=== PATIENT | female | born 1965 | race Caucasian/White ===

== ENCOUNTER 2020-10-06 19:31 | Inpatient (IN) ==
--- NOTE | 2020-10-06 20:33 | DR.SOBA ---
HPI Time Seen Time Seen by Provider: 10/06/20 20:20 Primary Care Physician Primary Care Physician: NONE HPI Comment HPI Comment: Worsening cough, congestion, n/d, fever and body aches since being diagnosed with covid as below; had RegenCov in [place] yesterday and taking zpak, prednisone without relief. Complaints Chief Complaint:: COVID POSITIVE THURSDAY. INCREASING SHORTNESS OF BREATHE AND COUGHING. NOW OXYGEN SATS IN 88. UNABLE TO REST DUE TO COUGHING. NAUSEA, DIARRHEA, FEVER, BODY AND HEADACHE Self Treatment fo Chief Complaint: ZPAK, PREDNISONE, ALBUTEROL, DOESN'T USE. IVERMECTIN, HAD REGEN-COV INFUSION YESTERDAY IN [place]. COVID-19 Coronavirus risk:travel/contact w/high risk person: Yes Has patient experienced Coronavirus symptoms: Yes Coronavirus symptoms experienced: Fever, Coughing and Shortness of Breath Source History Provided: Patient Mode of Arrival Mode of Arrival: Ambulatory Timing Onset of Chief Complaint: 10/03/20 PMH PMH Past Medical History: Yes Past Medical History Comment: SCIATICA Past Surgical History: Yes Surgical History: Cholecystectomy Family History History of Family Medical Conditions: Yes Family Medical History: Diabetes Mellitus and Heart Failure Social History Does patient currently use any type of tobacco product: No Have you used tobacco products in the last 12 months: No Type of Tobacco Use: None Does any household member use tobacco: No Alcohol Use: Occasionally Do you use any recreational Drugs:: No Lives With: Family Lives Where: Home Travel Risk Coronavirus risk:travel/contact w/high risk person: Yes Has patient experienced Coronavirus symptoms: Yes Coronavirus symptoms experienced: Fever, Coughing and Shortness of Breath Infectious screening In the last 2 months have you had wt loss of >10#?: NO Have you had fever, night sweats or hemotysis?: No Have you traveled outside the country in the last 6 months?: No Isolation: Airborn/Negative Pressure ROS Review of Systems Eyes: No Symptoms Reported ENTM: No Symptoms Reported Cardiovascular: No Symptoms Reported Gastrointestinal/Abdominal: No Symptoms Reported Genitourinary: No Symptoms Reported Integumentary: No Symptoms Reported Hematologic/Lymphatic: No Symptoms Reported Endocrine: No Symptoms Reported Psychiatric: No Symptoms Reported PE Vital Signs Vitals: Temperature 98.3 F Pulse Rate [Left] 92 Pulse Rate 82 Respiratory Rate 22 Blood Pressure [Left Arm] 151/81 Blood Pressure 122/75 O2 Sat by Pulse Oximetry 90 General Limitations: Physical Limitation (persistent, dry harsh cough) General Appearance: Other (appears moderately ill) Head Head Exam: Normal Inspection Eyes Eye exam: Normal Appearance ENT ENT Exam: Normal Exam Neck Neck Exam: Normal Inspection Chest Chest Inspection: Normal Inspection Respiratory Respiratory Exam: Normal Lung Sounds Bilat Respiratory Exam: Bilateral: Clear to Auscultation Cardiovascular Cardiovascular Exam: Regular Rate and Normal Rhythm Abdominal Exam Abdominal Exam: Normal Inspection, Normal Bowel Sounds and Soft Extremities Extremities Exam: Normal Inspection Back Back Exam: Normal Inspection Neurologic Neurological Exam: Alert and Oriented X3 Psychiatric Psychiatric Exam: Normal Affect and Normal Mood Skin Skin Exam: Warm, Dry, Intact and Normal Color MDM Differential Diagnosis Differential Diagnosis: Bronchitis, COPD, Pneumonia, Respiratory Failure, Respiratory Insufficiency and URI COURSE Treatment Treatment: test results discussed with pt; she accepts admission ROR Labs Reviewed Laboratory Results Reviewed?: Yes Result Diagrams: 10/06/20 21:20 10/06/20 21:20 Laboratory: WBC 7.1 X10^3/uL (3.6-10.0) 10/06/20 21:20 RBC 4.49 X10^6/uL (3.5-5.4) 10/06/20 21:20 Hgb 14.7 g/dL (12.0-16.0) 10/06/20 21:20 Hct 42.2 % (36.0-47.0) 10/06/20 21:20 MCV 93.9 fL (80.0-100.0) 10/06/20 21:20 MCH 32.7 pg (27.0-34.0) 10/06/20 21:20 MCHC 34.8 g/dL (33.0-35.0) 10/06/20 21:20 RDW 13.7 % (11.6-16.5) 10/06/20 21:20 Plt Count 164 X10^3/uL (150.0-450.0) 10/06/20 21:20 MPV 8.8 fL (7.4-11.0) 10/06/20 21:20 Neut % (Auto) 69.9 % (42.0-75.0) 10/06/20 21:20 Lymph % (Auto) 24.4 % (21.0-51.0) 08/28/21 21:20 Becker % (Auto) 5.3 % (0.0-13.0) 10/06/20 21:20 Eos % (Auto) 0.0 % (0.9-2.9) L 10/06/20 21:20 Baso % (Auto) 0.4 % (0.2-1.0) 10/06/20 21:20 Neut # (Auto) 5.0 x10^3/uL (2.2-4.8) H 10/06/20 21:20 Lymph # (Auto) 1.7 X10^3/uL (1.3-2.9) 10/06/20 21:20 Becker # (Auto) 0.4 x10^3/uL (0.3-0.8) 10/06/20 21:20 Eos # (Auto) 0.0 x10^3/uL (0.0-0.2) 10/06/20 21:20 Baso # (Auto) 0.0 X10^3/uL (0.0-0.1) 10/06/20 21:20 Absolute Nucleated RBC 0.1 /100WBC 10/06/20 21:20 D-Dimer 0.48 ug/ml (0.0-0.57) 10/06/20 21:20 Sample Site Lrad 10/06/20 21:10 ABG pH 7.480 (7.35-7.45) H 10/06/20 21:10 ABG pCO2 31.0 mmHg (35.0-45.0) L 10/06/20 21:10 ABG pO2 71.0 mmHg (80.0-100.0) L 10/06/20 21:10 ABG HCO3 23.1 mmol/L (22-26) 10/06/20 21:10 ABG O2 Saturation 95.0 % (90-100) 10/06/20 21:10 ABG Base Excess 0.3 mmol/L (-2.0-2.0) 10/06/20 21:10 Loyd Test Pos 10/06/20 21:10 A-a Gradient 175.0 mmHg 10/06/20 21:10 FiO2 40.0 10/06/20 21:10 Blood Gas Comments Coby abg well=mtf 10/06/20 21:10 Sodium 135 mmol/L (136-145) L 10/06/20 21:20 Corrected Sodium TNP 10/06/20 21:20 Potassium 3.4 mmol/L (3.5-5.1) L 10/06/20 21:20 Chloride 97 mmol/L (98-107) L 10/06/20 21:20 Carbon Dioxide 28.5 mmol/L (21-32) 10/06/20 21:20 BUN 11 mg/dL (7-18) 10/06/20 21:20 Creatinine 1.11 mg/dL (0.55-1.02) H 10/06/20 21:20 Est GFR (MDRD) Af Amer > 60 (>60) 10/06/20 21:20 Est GFR (MDRD) Non-Af 54 (>60) L 10/06/20 21:20 Glucose 104 mg/dL (65-99) H 10/06/20 21:20 Calcium 8.9 mg/dL (8.5-10.1) 10/06/20 21:20 Corrected Calcium TNP 10/06/20 21:20 Ferritin 829 ng/mL (8-252) H 10/06/20 21:20 Total Bilirubin 0.90 mg/dL (0.2-1.0) 10/06/20 21:20 AST 78 Units/L (15-37) H 10/06/20 21:20 ALT 129 Units/L (12-78) H 10/06/20 21:20 Alkaline Phosphatase 158 Units/L (46-116) H 10/06/20 21:20 C-Reactive Protein 73.50 mg/L (0-3.0) H 10/06/20 21:20 B-Natriuretic Peptide 9.6 pg/mL (0-79) 10/06/20 21:20 Total Protein 8.8 g/dL (6.4-8.2) H 10/06/20 21:20 Albumin 3.5 g/dL (3.4-5.0) 10/06/20 21:20 Globulin 5.3 g/dL (2.5-4.5) H 10/06/20 21:20 Albumin/Globulin Ratio 0.7 Ratio (1.1-2.1) L 10/06/20 21:20 XRAY XRAY Interpreted by: Self X-ray Results: cxr: bilateral pneumonia Opioid Opioid Risk Tool Age (Roberto box if 16-45): No History of Preadolescent Sexual Abuse: No Total: 0 Total Score Risk Category: Low Risk Copyright: Jacques THAKUR predicting aberrant behaviors Diagnosis Discharge Problem: COVID-19, Acute dehydration, Insufficiency, respiratory, acute, Bilateral interstitial pneumonia, Other headache syndrome Instructions Forms: Patient Portal Social Distancing
[2020-10-06 21:11] LABS: ABG BASE EXCESS 0.3 mmol/L (-2.0-2.0); ABG HCO3 23.1 mmol/L (22-26)
[2020-10-06 21:12] LABS: ABG ALLEN TEST POS
[2020-10-06] MEDS ORDERED: TUSSIONEX PENNKINETIC SUSP PO ONE (21:32)
[2020-10-06] MEDS ORDERED: TUSSIONEX PENNKINETIC SUSP ONE (21:36)
[2020-10-06 21:52] LABS: BASOPHILS % (AUTO) 0.4 % (0.2-1.0); HEMATOCRIT 42.2 % (36.0-47.0); HEMOGLOBIN 14.7 g/dL (12.0-16.0); LYMPHOCYTES # (AUTO) 1.7 X10^3/uL (1.3-2.9); LYMPHOCYTES % (AUTO) 24.4 % (21.0-51.0); MEAN CORPUSCULAR HEMOGLOBIN 32.7 pg (27.0-34.0); MEAN CORPUSCULAR HGB CONC 34.8 g/dL (33.0-35.0); MEAN CORPUSCULAR VOLUME 93.9 fL (80.0-100.0); MEAN PLATELET VOLUME 8.8 fL (7.4-11.0); MONOCYTES # (AUTO) 0.4 x10^3/uL (0.3-0.8); MONOCYTES % (AUTO) 5.3 % (0.0-13.0); NEUTROPHILS % (AUTO) 69.9 % (42.0-75.0); PLATELET COUNT 164 X10^3/uL (150.0-450.0); RED BLOOD COUNT 4.49 X10^6/uL (3.5-5.4); RED CELL DISTRIBUTION WIDTH 13.7 % (11.6-16.5); WHITE BLOOD COUNT 7.1 X10^3/uL (3.6-10.0)
[2020-10-06 22:06] LABS: ALANINE AMINOTRANSFERASE 129 Units/L (12-78); ALBUMIN 3.5 g/dL (3.4-5.0); ALKALINE PHOSPHATASE 158 Units/L (46-116); ASPARTATE AMINO TRANSFERASE 78 Units/L (15-37); BLOOD UREA NITROGEN 11 mg/dL (7-18); CALCIUM 8.9 mg/dL (8.5-10.1); CARBON DIOXIDE 28.5 mmol/L (21-32); CHLORIDE 97 mmol/L (98-107); CREATININE 1.11 mg/dL (0.55-1.02); SODIUM 135 mmol/L (136-145); TOTAL PROTEIN 8.8 g/dL (6.4-8.2); eGFR NON BLACK RACES 54 (>60)
[2020-10-06] MEDS ORDERED: NS 1000 ML 1,000 ML IV ONE (22:29)
[2020-10-06] MEDS ORDERED: NS 1000 ML 1,000 ML ONE (23:25)
[2020-10-07] MEDS ORDERED: NORCO 5/325 MG TAB ONE ×2 (00:03→20:22)
[2020-10-07] MEDS: NORCO 5/325 MG TAB PO PRN ×3 (00:06→20:38)
--- NOTE | 2020-10-07 00:36 | RAD ---
EXAM: CHEST X-RAYHISTORY: COVID-19 positive. Shortness of breath. Low O2 saturation.TECHNIQUE: AP chest x-ray dated October 06, 2020 at 8:43 PM.COMPARISON: None available.FINDINGS:There is mild prominence of the bronchopulmonary markings, especially in the middle and lower lung sandoval, in keeping with bronchitis and interstitial pneumonia (e.g. Covid pneumonia) in the appropriate clinical setting; DDX includes mild noncardiogenic pulmonary congestion in the appropriate clinical setting. Clinical correlation is advised.No focal lung consolidation/mass, pleural effusion, or pneumothorax is seen.The heart size and mediastinum are within normal limits. The visualized bony structures are within normal limits.IMPRESSION:1. Mild prominence of the bronchopulmonary markings, especially in the middle and lower lung sandoval, in keeping with bronchitis and interstitial pneumonia (e.g. Covid pneumonia) in the appropriate clinical setting; DDX includes mild noncardiogenic pulmonary congestion in the appropriate clinical setting.2. Recommend clinical correlation and appropriate follow-up x-ray to ensure interval clearance.3. Consider follow-up evaluation with noncontrast chest CT to confirm Covid pneumonia as clinically warranted.Electronically signed by: Harman Veloz (Oct 07, 2020 00:34:54)
[2020-10-07] MEDS ORDERED: NS 1000 ML 1,000 ML ONE ×3 (00:53→23:04)
[2020-10-07] MEDS ORDERED: SOLU-Medrol 125 MG VIAL IVP ONE (01:01)
[2020-10-07] MEDS ORDERED: LEVAQUIN PREMIX IV 500 MG 500 MG/100 ML BAG IV ONE ×2 (01:01→01:04)
[2020-10-07] MEDS ORDERED: SOLU-Medrol 125 MG VIAL ONE ×2 (01:04→07:33)
[2020-10-07] MEDS: NS 1000 ML 1,000 ML IV SCH ×3 (01:15→18:56)
[2020-10-07 06:13] LABS: BASOPHILS % (AUTO) 0.2 % (0.2-1.0); HEMATOCRIT 39.3 % (36.0-47.0); HEMOGLOBIN 13.6 g/dL (12.0-16.0); LYMPHOCYTES # (AUTO) 0.9 X10^3/uL (1.3-2.9); LYMPHOCYTES % (AUTO) 9.5 % (21.0-51.0); MEAN CORPUSCULAR HEMOGLOBIN 32.7 pg (27.0-34.0); MEAN CORPUSCULAR HGB CONC 34.6 g/dL (33.0-35.0); MEAN CORPUSCULAR VOLUME 94.6 fL (80.0-100.0); MEAN PLATELET VOLUME 9.2 fL (7.4-11.0); MONOCYTES # (AUTO) 0.4 x10^3/uL (0.3-0.8); MONOCYTES % (AUTO) 3.9 % (0.0-13.0); NEUTROPHILS # (AUTO) 8.3 x10^3/uL (2.2-4.8); NEUTROPHILS % (AUTO) 86.4 % (42.0-75.0); PLATELET COUNT 153 X10^3/uL (150.0-450.0); RED BLOOD COUNT 4.15 X10^6/uL (3.5-5.4); RED CELL DISTRIBUTION WIDTH 13.1 % (11.6-16.5); WHITE BLOOD COUNT 9.7 X10^3/uL (3.6-10.0)
[2020-10-07 06:28] LABS: ALANINE AMINOTRANSFERASE 106 Units/L (12-78); ALBUMIN 2.9 g/dL (3.4-5.0); ALKALINE PHOSPHATASE 133 Units/L (46-116); ASPARTATE AMINO TRANSFERASE 69 Units/L (15-37); BLOOD UREA NITROGEN 10 mg/dL (7-18); CALCIUM 8.3 mg/dL (8.5-10.1); CARBON DIOXIDE 23.2 mmol/L (21-32); CHLORIDE 100 mmol/L (98-107); COR CA(FOR HYPOALB) 9.2 mg/dL (8.5-10.1); COR NA(FOR HYPERGLY) 135 mmol/L (136-145); CREATININE 0.86 mg/dL (0.55-1.02); SODIUM 134 mmol/L (136-145); TOTAL PROTEIN 7.8 g/dL (6.4-8.2); eGFR NON BLACK RACES > 60 (>60)
[2020-10-07] MEDS ORDERED: TUSSIONEX PENNKINETIC SUSP ONE (07:33)
[2020-10-07] MEDS: TUSSIONEX PENNKINETIC SUSP PO PRN (07:34)
[2020-10-07] MEDS ORDERED: SOLU-Medrol 125 MG VIAL IVP SCH (09:00)
[2020-10-07] MEDS: BROVANA IN SCH ×2 (09:09→20:41)
[2020-10-07] MEDS: PULMICORT NEB TX 0.5 MG NEB SCH ×2 (09:09→20:41)
[2020-10-07] MEDS ORDERED: REMDESIVIR 200 MG in NS 250 ML IV 250 ML IV ONE (10:58)
[2020-10-07] MEDS ORDERED: PHARMACY CONSULT - IVERMECTIN XX SCH (11:00)
[2020-10-07] MEDS: SOLU-Medrol 40 MG VIAL IVP SCH ×3 (11:35→21:28)
[2020-10-07] MEDS ORDERED: PROTONIX TAB 40 MG PO ONE ×2 (11:38→19:29)
[2020-10-07] MEDS ORDERED: FLUVOXAMINE MALEATE ONE ×2 (11:39→19:29)
[2020-10-07] MEDS ORDERED: PEPCID TAB 40 MG ONE ×2 (11:39→19:29)
[2020-10-07] MEDS ORDERED: REMDESIVIR IV ONE (11:39)
[2020-10-07] MEDS ORDERED: IVERMECTIN ONE (11:39)
[2020-10-07] MEDS ORDERED: NS 250 ML IV 250 ML IV ONE (11:39)
[2020-10-07] MEDS: PEPCID TAB 40 MG PO SCH ×2 (11:47→20:41)
[2020-10-07] MEDS: PROTONIX TAB 40 MG PO SCH ×2 (11:47→20:41)
[2020-10-07] MEDS: IVERMECTIN PO SCH (11:48)
[2020-10-07] MEDS: FLUVOXAMINE MALEATE PO SCH ×2 (11:48→20:38)
[2020-10-07 12:27] LABS: CKMB % 0.6 % (<4); CREATINE KINASE 180 Units/L (26-192); CREATINE KINASE MB < 1.0 ng/mL (0-4.0); TROPONIN I < 0.02 ng/mL (0-1.5)
[2020-10-07] MEDS ORDERED: ACCUNEB 1.25 MG NEBULE NEB SCH (13:00)
--- NOTE | 2020-10-07 13:41 | CT ---
HISTORYCOVID, HYPOXIASTUDYCTA [id number] axial images of the chest were obtained from the thoracic inlet to the upper abdomen after the administration of IV contrast. 3D reconstructions utilizing axi al MIPS imaging was performed and reviewed. Dose reduction techniques including Automated Exposure C ontrol (AEC) and adjustment of mA and kV were utilized.FINDINGSSatisfactory opacification of pulmonar y arteries without visible pulmonary artery filling defect. Thoracic aorta appears grossly intact. Ayah ngs show widespread patchy and ground-glass opacity compatible with COVID-19. Consolidative opacity i n the left greater than right base may reflect atelectasis or superimposed bacterial infection. No vi sible lymphadenopathy, pleural or pericardial effusion, or pneumothorax. Limited views upper abdomen show evidence of hepatic steatosis, cholecystectomy. Contrast in the renal collecting systems. No acu te osseous finding.IMPRESSIONNo visible pulmonary embolism. Pulmonary findings typical of COVID. Diff icult to exclude superimposed pneumonia.Electronically signed by: Hiro Stone (Oct 07, 2020 13:39:3 4)
[2020-10-07] MEDS ORDERED: PERIACTIN TAB 4 MG ONE ×2 (14:27→19:30)
[2020-10-07] MEDS ORDERED: SOLU-Medrol 40 MG VIAL ONE ×2 (14:27→19:30)
[2020-10-07] MEDS ORDERED: TESSALON PERLES PO ONE ×2 (14:27→19:29)
[2020-10-07] MEDS ORDERED: NS 50 ML IV 50 ML IV ONE ×2 (14:28→19:31)
[2020-10-07] MEDS: PERIACTIN TAB 4 MG PO SCH ×2 (14:54→21:28)
[2020-10-07] MEDS: ASCORBIC ACID INJ MULTI-DOSE VIAL 1,500 MG in NS 50 ML IV 50 ML IV SCH ×2 (14:54→21:28)
[2020-10-07] MEDS: TESSALON PERLES PO SCH ×2 (14:54→21:27)
[2020-10-07] MEDS ORDERED: LIPITOR TAB 80 MG ONE (19:29)
[2020-10-07] MEDS ORDERED: THIAMINE HCL INJ ONE (19:29)
[2020-10-07] MEDS ORDERED: LOVENOX INJ 100 MG SYR SC ONE (19:29)
[2020-10-07] MEDS ORDERED: ASCORBIC ACID INJ MULTI-DOSE VIAL IV ONE (19:31)
[2020-10-07] MEDS: LIPITOR TAB 80 MG PO SCH (20:39)
[2020-10-07] MEDS: SINGULAIR TAB 10 MG PO SCH (20:40)
[2020-10-07] MEDS: MELATONIN PO SCH (20:40)
[2020-10-07] MEDS: SNACK - Diabetic Appropriate PO SCH (20:41)
[2020-10-07] MEDS ORDERED: LOVENOX INJ 100 MG SYR SC SCH (21:00)
[2020-10-07] MEDS: THIAMINE HCL INJ IVP SCH (21:27)
--- NOTE | 2020-10-07 22:14 | DR.H&P ---
H&P - History & Physical for Day of: H&P Date: 10/06/20 - Chief Complaint Chief Complaint: NON-PRODUCTIVE COUGH, SHORTNESS OF BREATH, HEADACHE, FEVER, NAUSEA AND VOMITING, AND GENERALIZED BODY ACHES - History of Present Illness History of Present Illness: IS A 55 YEAR OLD WHITE FEMALE. SHE PRESENTED TO THE ER WITH COMPLAINTS OF A NON-PRODUCTIVE COUGH, SHORTNESS OF BREATH, HEADACHE, FEVER, NAUSEA AND VOMITING, AND GENERALIZED BODY ACHES. PATIENT REPORTS TESTING POSITIVE FOR COVID-19 4 DAYS AGO. SYMPTOMS STARTED ABOUT A WEEK AGO. SHE REPORTS THAT HER OXYGEN SATURATIONS AT HOME WERE IN THE 80s. SHE HAS TAKEN A ZPAK, PREDNISONE, IVERMECTIN AT HOME WITHOUT IMPROVEMENT IN SYMPTOMS. SHE ALSO HAD THE REGEN-COV INFUSION ONE DAY PRIOR IN [place]. HER PMH INCLUDES: SCIATICA AND CHOLECYSTECTOMY. AUSCULTATION OF BILATERAL LUNG BACH REVEALED SCATTERED WHEEZING. ON ARRIVAL TO THE ER, VITALS WERE 98.3-82-28-90%-122/75. ON EXERTION, HER SATURATIONS DROP TO THE LOWER 80s. SHE WAS PLACED ON OXYGEN VIA NASAL CANNULA AT 3LPM. LABS WERE OBTAINED. ABNORMAL LAB VALUES INCLUDED THE FOLLOWING: SODIUM 135, POTASSIUM 3.4, CHLORIDE 97, CREATININE 1.11, GLUCOSE 104, FERRITIN 829, AST 78, ALT 129, ALK PHOS 158, CRP 73.50, TOTAL PROTEIN 8.8, GLOBULIN 5.3. COVID-19 POSITIVE. AN ABG WAS OBTAINED AND REVEALED: PH 7.480, PC02 31, P02 71, HC03 23.1, 02 SAT 95, A-A GRADIENT 175, FI02 40. BLOOD CULTURES WERE SET UP. CHEST XRAY WAS OBTAINED AND REVEALED: 1. Mild prominence of the bronchopulmonary markings, especially in the middle and lower lung bach, in keeping with bronchitis and interstitial pneumonia (e.g. Covid pneumonia) in the appropriate clinical setting; DDX includes mild noncardiogenic pulmonary congestion in the appropriate clinical setting. CHEST CTA OBTAINED AND REVEALED: No visible pulmonary embolism. Pulmonary findings typical of COVID. Difficult to exclude superimposed pneumonia. EKG REVEALED: SINUS RHYTHM WITH HR 71. IN THE ER, SHE WAS GIVEN A NORMAL SALINE BOLUS, TUSSIONEX 5ML PO X 1, LEVAQUIN 500MG IV X 1, SOLU-MEDROL 125MG IV X 1. SHE WAS ADMITTED TO THE HOSPITAL FOR FURTHER EVALUATION AND TREATMENT OF PNEUMONIA DUE TO COVID-19, RESPIRATORY FAILURE, AND HYPOXIA. SHE WAS STARTED ON NS AT 80 ML/HR, LEVAQUIN 500MG IV DAILY, REMDESIVIR 100MG IV DAILY, ASCORBIC ACID 1500MG IV Q6H, ALBUTEROL NEBS QID, PULMICORT NEBS BID, BROVANA INHALER BID, SOLU-MEDROL 80MG IV8H, FLUVOXAMINE 50MG PO BID, CYPROHEPTADINE 8MG PO TID, ZOFRAN 4MG IV Q8H PRN, LOVENOX 85MG SC Q12H, LIPITOR 80MG PO HS, TESSALON PERLES 200MG PO TID, CETIRIZINE 10MG PO DAILY, IVERMECTIN, PEPCID 40MG PO BID, ROBITUSSIN DM 10ML PO QID PRN, HUMULIN R SLIDING SCALE, SINGULAIR 10MG PO HS, PROTONIX 40MG PO BID, THIAMINE 200MG IV BID, AND ZINC SULFATE 220MG PO BID. OTHERWISE, WE PLAN TO FOLLOW UP WITH AM LABS AND CHEST XRAY AND CONTINUE TO MONITOR. WE WILL ALSO OBTAIN AN ECHO. TIME SPENT ON CLINICAL ASSESSMENT, REVIEWING LABS AND IMAGING, DECISION MAKING, AND DOCUMENTATION GREATER THAN 75 MINUTES. - Past Medical History Additional Medical History: sciatica - Past Surgical History Surgical History: Cholecystectomy - Family History Family Medical History: Diabetes Mellitus, Cancer - Social History Does patient currently use any type of tobacco product: No Have you used tobacco products in the last 12 months: No Type of Tobacco Use: None Does any household member use tobacco: No Alcohol Use: Occasionally Drug Use: None - Medications Home Medications: ibuprofen Adverse Reaction (Verified 10/06/20 20:57) abd pain CONTINUE taking the following medications gabapentin 800 mg PO TID PRN 10/07/20 [History] hydroxyzine pamoate 50 mg PO TID PRN 10/07/20 [History] - Review of Systems Constitutional: Fever, Chills, Weakness Eyes: No Symptoms Reported ENT: No Symptoms Reported Respiratory: See HPI, Cough, Shortness of Breath, SOB with Excertion, Wheezing Cardiovascular: No Symptoms Reported Gastrointestinal: Nausea, Vomiting Genitourinary: No Symptoms Reported Musculoskeletal: No Symptoms Reported Skin: No Symptoms Reported Neurological: Weakness - Physical Exam Vital Signs: Temperature 97.8 F Pulse Rate [Apical] 63 Pulse Rate [Left] 81 Pulse Rate 77 Respiratory Rate 24 Blood Pressure [Right Arm] 96/55 Blood Pressure [Left Arm] 117/66 Blood Pressure 122/75 O2 Sat by Pulse Oximetry 97 Oriented: Normal Eyes: Normal Ear: Normal Nose: Normal Throat: Normal Respiratory: Diminished Throughout, Wheezes Throughout Cardiovascular: Normal : Normal Auscultation: Bowel Sounds: Normal Palpation: Normal Tenderness: Normal Skin: Normal Musculoskeletal: Normal Psychiatric: Normal Mood Description: Calm Affect: Normal Speech Pattern: Clear - Assessment/Plan (1) Pneumonia due to COVID-19 virus Status: Acute Plan: ADMIT, SUPPLEMENTAL OXYGEN, NS AT 80 ML/HR, LEVAQUIN 500MG IV DAILY, REMDESIVIR 100MG IV DAILY, ASCORBIC ACID 1500MG IV Q6H, ALBUTEROL NEBS QID, PULMICORT NEBS BID, BROVANA INHALER BID, SOLU-MEDROL 80MG IV8H, FLUVOXAMINE 50MG PO BID, CYPROHEPTADINE 8MG PO TID, ZOFRAN 4MG IV Q8H PRN, LOVENOX 85MG SC Q12H, LIPITOR 80MG PO HS, TESSALON PERLES 200MG PO TID, CETIRIZINE 10MG PO DAILY, IVERMECTIN, PEPCID 40MG PO BID, ROBITUSSIN DM 10ML PO QID PRN, HUMULIN R SLIDING SCALE, SINGULAIR 10MG PO HS, PROTONIX 40MG PO BID, THIAMINE 200MG IV BID, AND Z INC SULFATE 220MG PO BID (2) Hypoxia Status: Acute - Allergies Allergies/Adverse Reactions: Allergies Allergy/AdvReac Type Severity Reaction Status Date / Time ibuprofen AdvReac abd pain Verified 10/06/20 20:57
[2020-10-08] MEDS ORDERED: LEVAQUIN PREMIX IV 500 MG 500 MG/100 ML BAG IV ONE (01:08)
[2020-10-08] MEDS: LEVAQUIN PREMIX IV 500 MG 500 MG/100 ML BAG IV SCH (01:13)
[2020-10-08] MEDS ORDERED: ASCORBIC ACID INJ MULTI-DOSE VIAL IV ONE ×3 (02:58→13:46)
[2020-10-08] MEDS ORDERED: NS 50 ML IV 50 ML IV ONE (02:58)
[2020-10-08] MEDS: NS 1000 ML 1,000 ML IV SCH ×2 (03:12→14:23)
[2020-10-08] MEDS: ASCORBIC ACID INJ MULTI-DOSE VIAL 1,500 MG in NS 50 ML IV 50 ML IV SCH ×5 (03:13→21:43)
[2020-10-08] MEDS ORDERED: PERIACTIN TAB 4 MG ONE (05:01)
[2020-10-08] MEDS ORDERED: SOLU-Medrol 40 MG VIAL ONE ×2 (05:01→13:45)
[2020-10-08] MEDS ORDERED: TESSALON PERLES PO ONE ×2 (05:01→13:45)
[2020-10-08 05:29] LABS: ABG BASE EXCESS 1.9 mmol/L (-2.0-2.0); ABG HCO3 26.6 mmol/L (22-26)
[2020-10-08 05:30] LABS: ABG ALLEN TEST POS
[2020-10-08] MEDS: PERIACTIN TAB 4 MG PO SCH ×3 (05:32→21:44)
[2020-10-08] MEDS: SOLU-Medrol 40 MG VIAL IVP SCH (05:32)
[2020-10-08] MEDS: TESSALON PERLES PO SCH ×3 (05:32→21:45)
[2020-10-08 07:42] LABS: BASOPHILS % (AUTO) 0.1 % (0.2-1.0); HEMATOCRIT 39.1 % (36.0-47.0); HEMOGLOBIN 13.3 g/dL (12.0-16.0); LYMPHOCYTES # (AUTO) 1.3 X10^3/uL (1.3-2.9); LYMPHOCYTES % (AUTO) 11.1 % (21.0-51.0); MEAN CORPUSCULAR HEMOGLOBIN 32.2 pg (27.0-34.0); MEAN CORPUSCULAR VOLUME 94.5 fL (80.0-100.0); MEAN PLATELET VOLUME 9.2 fL (7.4-11.0); MONOCYTES # (AUTO) 0.5 x10^3/uL (0.3-0.8); MONOCYTES % (AUTO) 4.7 % (0.0-13.0); NEUTROPHILS # (AUTO) 9.6 x10^3/uL (2.2-4.8); NEUTROPHILS % (AUTO) 84.1 % (42.0-75.0); PLATELET COUNT 195 X10^3/uL (150.0-450.0); RED BLOOD COUNT 4.14 X10^6/uL (3.5-5.4); RED CELL DISTRIBUTION WIDTH 13.5 % (11.6-16.5); WHITE BLOOD COUNT 11.4 X10^3/uL (3.6-10.0)
[2020-10-08 08:02] LABS: ALANINE AMINOTRANSFERASE 76 Units/L (12-78); ALBUMIN 2.4 g/dL (3.4-5.0); ALKALINE PHOSPHATASE 107 Units/L (46-116); ASPARTATE AMINO TRANSFERASE 47 Units/L (15-37); BLOOD UREA NITROGEN 11 mg/dL (7-18); CALCIUM 8.2 mg/dL (8.5-10.1); CARBON DIOXIDE 24.9 mmol/L (21-32); CHLORIDE 107 mmol/L (98-107); COR CA(FOR HYPOALB) 9.5 mg/dL (8.5-10.1); COR NA(FOR HYPERGLY) 141 mmol/L (136-145); CREATININE 0.79 mg/dL (0.55-1.02); SODIUM 140 mmol/L (136-145); eGFR NON BLACK RACES > 60 (>60)
--- NOTE | 2020-10-08 08:14 | RAD ---
HISTORYSOB, COVID+STUDYCHEST, 1 [id number] lungs are better inflated than on the prior study. Patchy bilateral areas of opacity are compatible with bronchopneumonia. Probably not changed significantly when accounting for the improved aeration.No pleural effusion or pneumothorax.The heart size is magnified.Bones are unremarkable.EKG leads are noted.IMPRESSION1. Improved aeration2. Unchanged bronchopneumoniaElectronically signed by: Jason Barber (Oct 08, 2020 08:13:42)
[2020-10-08] MEDS: PULMICORT NEB TX 0.5 MG NEB SCH ×2 (08:29→20:40)
[2020-10-08] MEDS: BROVANA IN SCH ×2 (08:29→20:40)
[2020-10-08] MEDS ORDERED: PROTONIX TAB 40 MG PO ONE (10:36)
[2020-10-08] MEDS ORDERED: ZyrTEC TAB 10 MG ONE (10:36)
[2020-10-08] MEDS ORDERED: REMDESIVIR IV ONE (10:37)
[2020-10-08] MEDS ORDERED: LOVENOX INJ 80 MG SYR SC ONE (10:37)
[2020-10-08] MEDS ORDERED: THIAMINE HCL INJ ONE (10:37)
[2020-10-08] MEDS ORDERED: ZINC SULFATE ONE (10:37)
[2020-10-08] MEDS ORDERED: VITAMIN D3 125 mcg (5,000 UNITS) ONE (10:37)
[2020-10-08] MEDS ORDERED: PEPCID TAB 20 MG ONE (10:37)
[2020-10-08] MEDS ORDERED: FLUVOXAMINE MALEATE ONE (10:37)
[2020-10-08] MEDS ORDERED: NS 100 ML IV 100 ML ONE (10:37)
[2020-10-08] MEDS ORDERED: NS 250 ML IV 250 ML IV ONE (10:38)
[2020-10-08] MEDS: FLUVOXAMINE MALEATE PO SCH ×2 (10:43→21:45)
[2020-10-08] MEDS: LOVENOX INJ 80 MG SYR SC SCH ×2 (10:44→21:30)
[2020-10-08] MEDS: PROTONIX TAB 40 MG PO SCH ×2 (10:45→21:46)
[2020-10-08] MEDS: PEPCID TAB 40 MG PO SCH ×2 (10:45→21:44)
[2020-10-08] MEDS: REMDESIVIR 100 MG in NS 250 ML IV 250 ML IV SCH (10:45)
[2020-10-08] MEDS: THIAMINE HCL INJ IVP SCH ×2 (10:46→21:46)
[2020-10-08] MEDS: VITAMIN D3 125 mcg (5,000 UNITS) PO SCH (10:46)
[2020-10-08] MEDS: ZINC SULFATE PO SCH (10:46)
[2020-10-08] MEDS: ZyrTEC TAB 10 MG PO SCH (10:47)
[2020-10-08] MEDS ORDERED: ZOFRAN INJ 4 MG VIAL ONE (11:44)
[2020-10-08] MEDS: ACCUNEB 1.25 MG NEBULE NEB SCH ×3 (11:47→20:40)
[2020-10-08] MEDS: ZOFRAN INJ 4 MG VIAL IVP PRN (12:19)
[2020-10-08] MEDS ORDERED: NS 1000 ML 1,000 ML ONE (13:46)
[2020-10-08] MEDS: SOLU-Medrol 125 MG VIAL IVP SCH ×2 (15:17→21:45)
[2020-10-08] MEDS: SNACK - Diabetic Appropriate PO SCH (20:00)
--- NOTE | 2020-10-08 21:30 | PCM.PROG ---
Progress Note - Progress Note for Day of Date of Exam: 10/08/20 - Subjective Subjective: MS. RICHARDS WAS ADMITTED FOR TREATMENT OF COVID PNEUMONIA AND HYPOXIA. TODAY, SHE IS ALERT AND ORIENTED, SITTING UP IN THE BED ON MORNING ROUNDS. SHE IS CURRENTLY UTILIZING OXYGEN VIA NON-REBREATHER AT 100%. HE CONTINUES WITH COMPLAINTS OF SHORTNESS OF BREATH AND WEAKNESS TODAY. SHORTNESS OF BREATH AND COUGH SLIGHTLY INCREASED. HIS SATURATIONS HAVE BEEN 86-92% THIS MORNING AND THROUGHOUT THE NIGHT. ON EXAMINATION, HEART IS REGULAR IN RATE AND RHYTHM. BILATERAL LUNGS ARE NOTED WITH WHEEZING THROUGHOUT. ABDOMEN IS ROUND, SOFT, AND NON-TENDER WITH NORMAL BOWEL SOUNDS NOTED IN ALL QUADRANTS. HIS VITALS THIS MORNING ARE: 98.4-87-24-89%-134/63. LABS WERE OBTAINED. ABNORMAL LAB VALUES INCLUDE THE FOLLOWING: WBC 11.4, GLUCOSE 154, CALCIUM 8.2, FERRITIN 752, AST 47, CRP 58.30, BNP 121, ALBUMIN 2.4, GLOBULIN 4.6. BLOOD CULTURES ARE PENDING. ABG REVEALED: PH 7.420, PC02 41, P02 78, HC03 26.6, 02 SAT 96, A-A GRADIENT 584, FI02 100. A CHEST XRAY WAS OBTAINED AND REVEALED: 1. Improved aeration 2. Unchanged bronchopneumonia. SHE IS CURRENTLY RECEIVING NS AT 80 ML/HR, LEVAQUIN 500MG IV DAILY, REMDESIVIR 100MG IV DAILY, ASCORBIC ACID 1500MG IV Q6H, ALBUTEROL NEBS QID, PULMICORT NEBS BID, BROVANA INHALER BID, SOLU-MEDROL 80MG IV8H, FLUVOXAMINE 50MG PO BID, CYPROHEPTADINE 8MG PO TID, ZOFRAN 4MG IV Q8H PRN, LOVENOX 85MG SC Q12H, LIPITOR 80MG PO HS, TESSALON PERLES 200MG PO TID, CETIRIZINE 10MG PO DAILY, IVERMECTIN, PEPCID 40MG PO BID, ROBITUSSIN DM 10ML PO QID PRN, HUMULIN R SLIDING SCALE, SINGULAIR 10MG PO HS, PROTONIX 40MG PO BID, THIAMINE 200MG IV BID, AND ZINC SULFATE 220MG PO BID. WE WILL CONTINUE WITH CURRENT PLAN OF CARE TODAY AND ATTEMPT TO WEAN DOWN OXYGEN SHE TOLERATES IT. OTHERWISE, WE WILL FOLLOW UP WITH AM LABS, CHEST XRAY, ABG, AND CONTINUE TO MONITOR. TIME SPENT ON CLINICAL ASSESSMENT, REVIEWING LABS AND IMAGING, DECISION MAKING, AND DOCUMENTATION GREATER THAN 45 MINUTES. - Past Medical Family Social History Past Med/Fam/Surg Hx: No changes since H&P Allergies: Allergies ibuprofen Adverse Reaction (Verified 10/06/20 20:57) abd pain - Review of Systems ROS: No change since H&P - Vital Signs and I&O's Vital Signs: Temperature 98.1 F Pulse Rate [Apical] 87 Pulse Rate [Left] 81 Pulse Rate 87 Respiratory Rate 36 Blood Pressure [Right Arm] 134/63 Blood Pressure [Left Arm] 117/66 Blood Pressure 117/75 O2 Sat by Pulse Oximetry 92 Intake and Output: Intake & Output 10/06/20 10/07/20 10/08/20 10/09/20 11:59 11:59 11:59 11:59 Intake Total 425 / 425 2141 / 2141 958 / 958 Balance 425 / 425 2141 / 2141 958 / 958 - Physical Exam Oriented: Normal Eyes: Normal Ear: Normal Nose: Normal Throat: Normal Respiratory: Generalized, Diminished, Wheezes Cardiovascular: Normal : Normal Auscultation: Bowel Sounds: Normal Palpation: Normal Tenderness: Normal Skin: Normal Musculoskeletal: Normal Psychiatric: Normal Mood Description: Calm Affect: Normal Speech Pattern: Clear, Appropriate - Laboratory and Diagnostics Result Diagrams: 10/08/20 06:52 10/08/20 06:52 Labs: Laboratory WBC 11.4 X10^3/uL (3.6-10.0) H 10/08/20 06:52 RBC 4.14 X10^6/uL (3.5-5.4) 10/08/20 06:52 Hgb 13.3 g/dL (12.0-16.0) 10/08/20 06:52 Hct 39.1 % (36.0-47.0) 10/08/20 06:52 MCV 94.5 fL (80.0-100.0) 10/08/20 06:52 MCH 32.2 pg (27.0-34.0) 10/08/20 06:52 MCHC 34.0 g/dL (33.0-35.0) 10/08/20 06:52 RDW 13.5 % (11.6-16.5) 10/08/20 06:52 Plt Count 195 X10^3/uL (150.0-450.0) 10/08/20 06:52 MPV 9.2 fL (7.4-11.0) 10/08/20 06:52 Neut % (Auto) 84.1 % (42.0-75.0) H 10/08/20 06:52 Lymph % (Auto) 11.1 % (21.0-51.0) L 10/08/20 06:52 [place] % (Auto) 4.7 % (0.0-13.0) 10/08/20 06:52 Eos % (Auto) 0.0 % (0.9-2.9) L 10/08/20 06:52 Baso % (Auto) 0.1 % (0.2-1.0) L 10/08/20 06:52 Neut # (Auto) 9.6 x10^3/uL (2.2-4.8) H 10/08/20 06:52 Lymph # (Auto) 1.3 X10^3/uL (1.3-2.9) 10/08/20 06:52 [place] # (Auto) 0.5 x10^3/uL (0.3-0.8) 10/08/20 06:52 Eos # (Auto) 0.0 x10^3/uL (0.0-0.2) 10/08/20 06:52 Baso # (Auto) 0.0 X10^3/uL (0.0-0.1) 10/08/20 06:52 Absolute Nucleated RBC 0.2 /100WBC 10/08/20 06:52 D-Dimer 0.42 ug/ml (0.0-0.57) 10/08/20 06:52 Sample Site Lr 10/08/20 05:00 ABG pH 7.420 (7.35-7.45) 10/08/20 05:00 ABG pCO2 41.0 mmHg (35.0-45.0) 10/08/20 05:00 ABG pO2 78.0 mmHg (80.0-100.0) L 10/08/20 05:00 ABG HCO3 26.6 mmol/L (22-26) H 10/08/20 05:00 ABG O2 Saturation 96.0 % (90-100) 10/08/20 05:00 ABG Base Excess 1.9 mmol/L (-2.0-2.0) 10/08/20 05:00 Loyd Test Pos 10/08/20 05:00 A-a Gradient 584.0 mmHg 10/08/20 05:00 FiO2 100.0 10/08/20 05:00 Blood Gas Comments Coby well sw 10/08/20 05:00 Sodium 140 mmol/L (136-145) 10/08/20 06:52 Corrected Sodium 141 mmol/L (136-145) 10/08/20 06:52 Potassium 3.7 mmol/L (3.5-5.1) 10/08/20 06:52 Chloride 107 mmol/L (98-107) 10/08/20 06:52 Carbon Dioxide 24.9 mmol/L (21-32) 10/08/20 06:52 BUN 11 mg/dL (7-18) 10/08/20 06:52 Creatinine 0.79 mg/dL (0.55-1.02) 10/08/20 06:52 Est GFR (MDRD) Af Amer > 60 (>60) 10/08/20 06:52 Est GFR (MDRD) Non-Af > 60 (>60) 10/08/20 06:52 Glucose 154 mg/dL (65-99) H 10/08/20 06:52 Calcium 8.2 mg/dL (8.5-10.1) L 10/08/20 06:52 Corrected Calcium 9.5 mg/dL (8.5-10.1) 10/08/20 06:52 Ferritin 752 ng/mL (8-252) H 10/08/20 06:52 Total Bilirubin 0.70 mg/dL (0.2-1.0) 10/08/20 06:52 AST 47 Units/L (15-37) H 10/08/20 06:52 ALT 76 Units/L (12-78) 10/08/20 06:52 Alkaline Phosphatase 107 Units/L (46-116) 10/08/20 06:52 Creatine Kinase 180 Units/L (26-192) 10/07/20 11:49 CK-MB (CK-2) < 1.0 ng/mL (0-4.0) 10/07/20 11:49 CK/CKMB % Calc 0.6 % (<4) 10/07/20 11:49 Troponin I < 0.02 ng/mL (0-1.5) 10/07/20 11:49 C-Reactive Protein 58.30 mg/L (0-3.0) H 10/08/20 06:52 B-Natriuretic Peptide 121 pg/mL (0-79) H 10/08/20 06:52 Total Protein 7.0 g/dL (6.4-8.2) 10/08/20 06:52 Albumin 2.4 g/dL (3.4-5.0) L 10/08/20 06:52 Globulin 4.6 g/dL (2.5-4.5) H 10/08/20 06:52 Albumin/Globulin Ratio 0.5 Ratio (1.1-2.1) L 10/08/20 06:52 - Plan (1) Pneumonia due to COVID-19 virus Status: Acute Plan: SUPPLEMENTAL OXYGEN, NS AT 80 ML/HR, LEVAQUIN 500MG IV DAILY, REMDESIVIR 100MG IV DAILY, ASCORBIC ACID 1500MG IV Q6H, ALBUTEROL NEBS QID, PULMICORT NEBS BID, BROVANA INHALER BID, SOLU-MEDROL 80MG IV8H, FLUVOXAMINE 50MG PO BID, CYPROHEPTADINE 8MG PO TID, ZOFRAN 4MG IV Q8H PRN, LOVENOX 85MG SC Q12H, LIPITOR 80MG PO HS, TESSALON PERLES 200MG PO TID, CETIRIZINE 10MG PO DAILY, IVERMECTIN, PEPCID 40MG PO BID, ROBITUSSIN DM 10ML PO QID PRN, HUMULIN R SLIDING SCALE, SINGULAIR 10MG PO HS, PROTONIX 40MG PO BID, THIAMINE 200MG IV BID, AND ZINC SULFATE 220MG PO BID (2) Hypoxia Status: Acute
[2020-10-08] MEDS: NORCO 5/325 MG TAB PO PRN (21:45)
[2020-10-08] MEDS: MELATONIN PO SCH (21:46)
[2020-10-08] MEDS: LIPITOR TAB 80 MG PO SCH (21:46)
[2020-10-08] MEDS: SINGULAIR TAB 10 MG PO SCH (21:46)
[2020-10-09] MEDS: LEVAQUIN PREMIX IV 500 MG 500 MG/100 ML BAG IV SCH (00:50)
[2020-10-09] MEDS: ASCORBIC ACID INJ MULTI-DOSE VIAL 1,500 MG in NS 50 ML IV 50 ML IV SCH ×4 (02:33→20:38)
[2020-10-09 03:48] LABS: ABG ALLEN TEST POS; ABG BASE EXCESS 2.8 mmol/L (-2.0-2.0); ABG HCO3 27.2 mmol/L (22-26)
[2020-10-09] MEDS: TESSALON PERLES PO SCH ×3 (05:09→21:15)
[2020-10-09] MEDS: PERIACTIN TAB 4 MG PO SCH ×3 (05:09→21:15)
[2020-10-09] MEDS: SOLU-Medrol 125 MG VIAL IVP SCH ×3 (05:09→21:15)
[2020-10-09] MEDS: NS 1000 ML 1,000 ML IV SCH ×3 (05:09→21:15)
[2020-10-09] MEDS: ACCUNEB 1.25 MG NEBULE NEB SCH ×2 (05:36→20:19)
[2020-10-09 07:09] LABS: BASOPHILS % (AUTO) 0 % (0.2-1.0); HEMATOCRIT 38.4 % (36.0-47.0); HEMOGLOBIN 12.9 g/dL (12.0-16.0); LYMPHOCYTES # (AUTO) 0.7 X10^3/uL (1.3-2.9); LYMPHOCYTES % (AUTO) 6.9 % (21.0-51.0); MEAN CORPUSCULAR HEMOGLOBIN 32.2 pg (27.0-34.0); MEAN CORPUSCULAR HGB CONC 33.6 g/dL (33.0-35.0); MEAN CORPUSCULAR VOLUME 96.1 fL (80.0-100.0); MONOCYTES # (AUTO) 0.4 x10^3/uL (0.3-0.8); MONOCYTES % (AUTO) 4.4 % (0.0-13.0); NEUTROPHILS # (AUTO) 8.7 x10^3/uL (2.2-4.8); NEUTROPHILS % (AUTO) 88.7 % (42.0-75.0); PLATELET COUNT 226 X10^3/uL (150.0-450.0); RED CELL DISTRIBUTION WIDTH 13.6 % (11.6-16.5); WHITE BLOOD COUNT 9.8 X10^3/uL (3.6-10.0)
[2020-10-09 07:28] LABS: ALANINE AMINOTRANSFERASE 64 Units/L (12-78); ALBUMIN 2.3 g/dL (3.4-5.0); ALKALINE PHOSPHATASE 94 Units/L (46-116); ASPARTATE AMINO TRANSFERASE 41 Units/L (15-37); BLOOD UREA NITROGEN 15 mg/dL (7-18); CALCIUM 8.1 mg/dL (8.5-10.1); CARBON DIOXIDE 28.4 mmol/L (21-32); CHLORIDE 108 mmol/L (98-107); COR CA(FOR HYPOALB) 9.5 mg/dL (8.5-10.1); COR NA(FOR HYPERGLY) 145 mmol/L (136-145); CREATININE 0.95 mg/dL (0.55-1.02); SODIUM 143 mmol/L (136-145); TOTAL PROTEIN 6.6 g/dL (6.4-8.2); eGFR NON BLACK RACES > 60 (>60)
--- NOTE | 2020-10-09 08:07 | RAD ---
HISTORYSOBSTUDYCHEST, 1 [id number]/2021FINDINGSDiffuse bilateral opacity in the lungs is basilar predominant. Findings could be pulmonary edema or pneumonia. The findings have also progressed since yesterday.No pleural effusion or pneumothorax.Heart size is normal.Bones are unremarkable.IMPRESSION1. Progressed pulmonary edema or pneumoniaElectronically signed by: Jason Barber (Oct 09, 2020 08:05:51)
[2020-10-09] MEDS ORDERED: PEPCID TAB 20 MG ONE (09:23)
[2020-10-09] MEDS: BROVANA IN SCH ×2 (09:30→20:19)
[2020-10-09] MEDS: PULMICORT NEB TX 0.5 MG NEB SCH ×2 (09:30→20:19)
[2020-10-09] MEDS: NORCO 5/325 MG TAB PO PRN (09:35)
[2020-10-09] MEDS: FLUVOXAMINE MALEATE PO SCH ×2 (09:35→20:38)
[2020-10-09] MEDS: PROTONIX TAB 40 MG PO SCH ×2 (09:37→20:39)
[2020-10-09] MEDS: ZINC SULFATE PO SCH (09:37)
[2020-10-09] MEDS: ZyrTEC TAB 10 MG PO SCH (09:37)
[2020-10-09] MEDS: THIAMINE HCL INJ IVP SCH ×2 (09:37→20:40)
[2020-10-09] MEDS: VITAMIN D3 125 mcg (5,000 UNITS) PO SCH (09:38)
[2020-10-09] MEDS: LOVENOX INJ 80 MG SYR SC SCH ×2 (09:45→20:39)
[2020-10-09] MEDS: REMDESIVIR 100 MG in NS 250 ML IV 250 ML IV SCH (10:00)
--- NOTE | 2020-10-09 11:05 | PCM.PROG ---
Progress Note - Progress Note for Day of Date of Exam: 10/09/20 - Subjective Subjective: MS. RICHARDS WAS ADMITTED FOR TREATMENT OF COVID PNEUMONIA AND HYPOXIA. TODAY, SHE IS ALERT AND ORIENTED, SITTING UP IN THE BED ON MORNING ROUNDS. SHE IS CURRENTLY UTILIZING OXYGEN VIA NON-REBREATHER AT 100%. SHE CONTINUES WITH COMPLAINTS OF SHORTNESS OF BREATH AND WEAKNESS TODAY. SHE DOES ADMIT TO SLIGHT IMPROVEMENT IN SYMPTOMS. HER SATURATIONS HAVE BEEN 90-95% THIS MORNING AND THROUGHOUT THE NIGHT. ON EXAMINATION, HEART IS REGULAR IN RATE AND RHYTHM. BILATERAL LUNGS ARE NOTED WITH WHEEZING THROUGHOUT. ABDOMEN IS ROUND, SOFT, AND NON-TENDER WITH NORMAL BOWEL SOUNDS NOTED IN ALL QUADRANTS. HIS VITALS THIS MORNING ARE: 97.8-76-34-90%-113/62. LABS WERE OBTAINED. ABNORMAL LAB VALUES INCLUDE THE FOLLOWING: POTASSIUM 3.4, CHLORIDE 108, GLUCOSE 167, CALCIUM 8.1, FERRITIN 669, AST 41, CRP 25.20, BNP 107, ALBUMIN 2.3. BLOOD CULTURES ARE PENDING. ABG REVEALED: PH 7.440, PC02 40, P02 62.0, HC03 27.2, 02 SAT 92, A-A GRADIENT 601, FI02 100. A CHEST XRAY WAS OBTAINED AND REVEALED: 1. Progressed pulmonary edema or pneumonia. SHE IS CURRENTLY RECEIVING NS AT 80 ML/HR, LEVAQUIN 500MG IV DAILY, REMDESIVIR 100MG IV DAILY, ASCORBIC ACID 1500MG IV Q6H, ALBUTEROL NEBS QID, PULMICORT NEBS BID, BROVANA INHALER BID, SOLU-MEDROL 80MG IV8H, FLUVOXAMINE 50MG PO BID, CYPROHEPTADINE 8MG PO TID, ZOFRAN 4MG IV Q8H PRN, LOVENOX 85MG SC Q12H, LIPITOR 80MG PO HS, TESSALON PERLES 200MG PO TID, CETIRIZINE 10MG PO DAILY, IVERMECTIN, PEPCID 40MG PO BID, ROBITUSSIN DM 10ML PO QID PRN, HUMULIN R SLIDING SCALE, SINGULAIR 10MG PO HS, PROTONIX 40MG PO BID, THIAMINE 200MG IV BID, AND ZINC SULFATE 220MG PO BID. WE WILL CONTINUE WITH CURRENT PLAN OF CARE TODAY AND ATTEMPT TO WEAN DOWN OXYGEN SHE TOLERATES IT. OTHERWISE, WE WILL FOLLOW UP WITH AM LABS, CHEST XRAY, ABG, AND CONTINUE TO MONITOR. TIME SPENT ON CLINICAL ASSESSMENT, REVIEWING LABS AND IMAGING, DECISION MAKING, AND DOCUMENTATION GREATER THAN 45 MINUTES. - Past Medical Family Social History Past Med/Fam/Surg Hx: No changes since H&P Allergies: Allergies ibuprofen Adverse Reaction (Verified 10/06/20 20:57) abd pain - Review of Systems ROS: No change since H&P - Vital Signs and I&O's Vital Signs: Temperature 97.8 F Pulse Rate [Apical] 76 Pulse Rate [Left] 81 Pulse Rate 66 Respiratory Rate 18 Blood Pressure [Right Arm] 117/65 Blood Pressure [Left Arm] 113/62 Blood Pressure 117/75 O2 Sat by Pulse Oximetry 90 Intake and Output: Intake & Output 10/06/20 10/07/20 10/08/20 10/09/20 11:59 11:59 11:59 11:59 Intake Total 425 / 425 214 / 2140 Balance 425 / 425 2140 / 2140 - Physical Exam Oriented: Normal Eyes: Normal Ear: Normal Nose: Normal Throat: Normal Respiratory: Generalized, Diminished, Wheezes Cardiovascular: Normal : Normal Auscultation: Bowel Sounds: Normal Tenderness: Normal Skin: Normal Musculoskeletal: Normal Psychiatric: Normal Mood Description: Calm Affect: Normal Speech Pattern: Clear, Appropriate - Laboratory and Diagnostics Result Diagrams: 10/09/20 05:23 10/09/20 05:23 Labs: Laboratory WBC 9.8 X10^3/uL (3.6-10.0) 10/09/20 05:23 RBC 4.00 X10^6/uL (3.5-5.4) 10/09/20 05:23 Hgb 12.9 g/dL (12.0-16.0) 10/09/20 05:23 Hct 38.4 % (36.0-47.0) 10/09/20 05:23 MCV 96.1 fL (80.0-100.0) 10/09/20 05:23 MCH 32.2 pg (27.0-34.0) 10/09/20 05:23 MCHC 33.6 g/dL (33.0-35.0) 10/09/20 05:23 RDW 13.6 % (11.6-16.5) 10/09/20 05:23 Plt Count 226 X10^3/uL (150.0-450.0) 10/09/20 05:23 MPV 9.0 fL (7.4-11.0) 10/09/20 05:23 Neut % (Auto) 88.7 % (42.0-75.0) H 10/09/20 05:23 Lymph % (Auto) 6.9 % (21.0-51.0) L 10/09/20 05:23 [place] % (Auto) 4.4 % (0.0-13.0) 10/09/20 05:23 Eos % (Auto) 0.0 % (0.9-2.9) L 10/09/20 05:23 Baso % (Auto) 0 % (0.2-1.0) L 10/09/20 05:23 Neut # (Auto) 8.7 x10^3/uL (2.2-4.8) H 10/09/20 05:23 Lymph # (Auto) 0.7 X10^3/uL (1.3-2.9) L 10/09/20 05:23 [place] # (Auto) 0.4 x10^3/uL (0.3-0.8) 10/09/20 05:23 Eos # (Auto) 0.0 x10^3/uL (0.0-0.2) 10/09/20 05:23 Baso # (Auto) 0.0 X10^3/uL (0.0-0.1) 10/09/20 05:23 Absolute Nucleated RBC 0.0 /100WBC 10/09/20 05:23 D-Dimer 0.30 ug/ml (0.0-0.57) 10/09/20 05:23 Sample Site Lr 10/09/20 03:43 ABG pH 7.440 (7.35-7.45) 10/09/20 03:43 ABG pCO2 40.0 mmHg (35.0-45.0) 10/09/20 03:43 ABG pO2 62.0 mmHg (80.0-100.0) L 10/09/20 03:43 ABG HCO3 27.2 mmol/L (22-26) H 10/09/20 03:43 ABG O2 Saturation 92.0 % (90-100) 10/09/20 03:43 ABG Base Excess 2.8 mmol/L (-2.0-2.0) H 10/09/20 03:43 Loyd Test Pos 10/09/20 03:43 A-a Gradient 601.0 mmHg 10/09/20 03:43 FiO2 100.0 10/09/20 03:43 Blood Gas Comments Coby well ae 10/09/20 03:43 Sodium 143 mmol/L (136-145) 10/09/20 05:23 Corrected Sodium 145 mmol/L (136-145) 10/09/20 05:23 Potassium 3.4 mmol/L (3.5-5.1) L 10/09/20 05:23 Chloride 108 mmol/L (98-107) H 10/09/20 05:23 Carbon Dioxide 28.4 mmol/L (21-32) 10/09/20 05:23 BUN 15 mg/dL (7-18) 10/09/20 05:23 Creatinine 0.95 mg/dL (0.55-1.02) 10/09/20 05:23 Est GFR (MDRD) Af Amer > 60 (>60) 10/09/20 05:23 Est GFR (MDRD) Non-Af > 60 (>60) 10/09/20 05:23 Glucose 167 mg/dL (65-99) H 10/09/20 05:23 Calcium 8.1 mg/dL (8.5-10.1) L 10/09/20 05:23 Corrected Calcium 9.5 mg/dL (8.5-10.1) 10/09/20 05:23 Magnesium 2.4 mg/dL (1.7-2.9) 10/09/20 05:10 Ferritin 669 ng/mL (8-252) H 10/09/20 05:23 Total Bilirubin 0.70 mg/dL (0.2-1.0) 10/09/20 05:23 AST 41 Units/L (15-37) H 10/09/20 05:23 ALT 64 Units/L (12-78) 10/09/20 05:23 Alkaline Phosphatase 94 Units/L (46-116) 10/09/20 05:23 Creatine Kinase 180 Units/L (26-192) 10/07/20 11:49 CK-MB (CK-2) < 1.0 ng/mL (0-4.0) 10/07/20 11:49 CK/CKMB % Calc 0.6 % (<4) 10/07/20 11:49 Troponin I < 0.02 ng/mL (0-1.5) 10/07/20 11:49 C-Reactive Protein 25.20 mg/L (0-3.0) H 10/09/20 05:23 B-Natriuretic Peptide 107 pg/mL (0-79) H 10/09/20 05:23 Total Protein 6.6 g/dL (6.4-8.2) 10/09/20 05:23 Albumin 2.3 g/dL (3.4-5.0) L 10/09/20 05:23 Globulin 4.3 g/dL (2.5-4.5) 10/09/20 05:23 Albumin/Globulin Ratio 0.5 Ratio (1.1-2.1) L 10/09/20 05:23 - Plan (1) Pneumonia due to COVID-19 virus Status: Acute Plan: SUPPLEMENTAL OXYGEN, NS AT 80 ML/HR, LEVAQUIN 500MG IV DAILY, REMDESIVIR 100MG IV DAILY, ASCORBIC ACID 1500MG IV Q6H, ALBUTEROL NEBS QID, PULMICORT NEBS BID, BROVANA INHALER BID, SOLU-MEDROL 80MG IV8H, FLUVOXAMINE 50MG PO BID, CYPROHEPTADINE 8MG PO TID, ZOFRAN 4MG IV Q8H PRN, LOVENOX 85MG SC Q12H, LIPITOR 80MG PO HS, TESSALON PERLES 200MG PO TID, CETIRIZINE 10MG PO DAILY, IVERMECTIN, PEPCID 40MG PO BID, ROBITUSSIN DM 10ML PO QID PRN, HUMULIN R SLIDING SCALE, SINGULAIR 10MG PO HS, PROTONIX 40MG PO BID, THIAMINE 200MG IV BID, AND ZINC SULFATE 220MG PO BID (2) Hypoxia Status: Acute
[2020-10-09] MEDS: PEPCID TAB 40 MG PO SCH ×2 (13:34→20:39)
[2020-10-09] MEDS: SNACK - Diabetic Appropriate PO SCH (20:38)
[2020-10-09] MEDS: MELATONIN PO SCH (20:39)
[2020-10-09] MEDS: LIPITOR TAB 80 MG PO SCH (20:39)
[2020-10-09] MEDS: SINGULAIR TAB 10 MG PO SCH (20:40)
[2020-10-09] MEDS: ZOFRAN INJ 4 MG VIAL IVP PRN (21:15)
[2020-10-10] MEDS: LEVAQUIN PREMIX IV 500 MG 500 MG/100 ML BAG IV SCH (01:37)
[2020-10-10] MEDS: ASCORBIC ACID INJ MULTI-DOSE VIAL 1,500 MG in NS 50 ML IV 50 ML IV SCH ×4 (02:39→21:24)
[2020-10-10 04:36] LABS: ABG BASE EXCESS 2.8 mmol/L (-2.0-2.0); ABG HCO3 27.2 mmol/L (22-26)
[2020-10-10] MEDS: NS 1000 ML 1,000 ML IV SCH ×2 (06:23→19:02)
[2020-10-10] MEDS: PERIACTIN TAB 4 MG PO SCH ×3 (06:23→21:25)
[2020-10-10] MEDS: TESSALON PERLES PO SCH ×3 (06:23→21:27)
[2020-10-10] MEDS: SOLU-Medrol 125 MG VIAL IVP SCH ×3 (06:23→21:27)
[2020-10-10 06:25] LABS: BASOPHILS % (AUTO) 0.1 % (0.2-1.0); HEMATOCRIT 37.7 % (36.0-47.0); LYMPHOCYTES # (AUTO) 0.8 X10^3/uL (1.3-2.9); LYMPHOCYTES % (AUTO) 6.9 % (21.0-51.0); MEAN CORPUSCULAR HEMOGLOBIN 32.7 pg (27.0-34.0); MEAN CORPUSCULAR HGB CONC 34.4 g/dL (33.0-35.0); MEAN CORPUSCULAR VOLUME 94.9 fL (80.0-100.0); MEAN PLATELET VOLUME 8.8 fL (7.4-11.0); MONOCYTES # (AUTO) 0.6 x10^3/uL (0.3-0.8); MONOCYTES % (AUTO) 5.5 % (0.0-13.0); NEUTROPHILS # (AUTO) 9.6 x10^3/uL (2.2-4.8); NEUTROPHILS % (AUTO) 87.5 % (42.0-75.0); PLATELET COUNT 251 X10^3/uL (150.0-450.0); RED BLOOD COUNT 3.97 X10^6/uL (3.5-5.4); RED CELL DISTRIBUTION WIDTH 13.7 % (11.6-16.5)
[2020-10-10 07:00] LABS: ALANINE AMINOTRANSFERASE 66 Units/L (12-78); ALBUMIN 2.3 g/dL (3.4-5.0); ALKALINE PHOSPHATASE 90 Units/L (46-116); ASPARTATE AMINO TRANSFERASE 48 Units/L (15-37); BLOOD UREA NITROGEN 16 mg/dL (7-18); CALCIUM 8.1 mg/dL (8.5-10.1); CARBON DIOXIDE 27.5 mmol/L (21-32); CHLORIDE 109 mmol/L (98-107); COR CA(FOR HYPOALB) 9.5 mg/dL (8.5-10.1); COR NA(FOR HYPERGLY) 145 mmol/L (136-145); CREATININE 0.94 mg/dL (0.55-1.02); SODIUM 144 mmol/L (136-145); TOTAL PROTEIN 6.4 g/dL (6.4-8.2); eGFR NON BLACK RACES > 60 (>60)
[2020-10-10] MEDS: ACCUNEB 1.25 MG NEBULE NEB SCH ×3 (07:00→21:18)
[2020-10-10] MEDS ORDERED: MAGNESIUM SULFATE 1 GRAM/100 mL PREMIX 1 GM/100 ML BAG IV PRN (07:55)
[2020-10-10] MEDS ORDERED: POTASSIUM CHL 60 MEQ/NS 0.45% 500 ML IV PRN (07:55)
[2020-10-10] MEDS ORDERED: POTASSIUM CHL 40 MEQ/NS 0.45% 500 ML IV PRN (07:55)
[2020-10-10] MEDS ORDERED: KLOR-CON PO PRN (07:55)
[2020-10-10] MEDS: NORCO 5/325 MG TAB PO PRN ×2 (07:56→21:26)
--- NOTE | 2020-10-10 07:58 | RAD ---
HISTORYSOBSTUDYPortable AP chestCOMPARISONAugust 2020FINDINGSThere is no change in heart size or contour. Persistent and slightly increased diffuse bilateral confluent airspace disease. No developing pleural fluid or pneumothorax identified.IMPRESSIONSlight increase in bilateral pneumonia/pulmonary edema since 1 day earlier.Electronically signed by: ROSA HSU (Oct 10, 2020 07:56:38)
[2020-10-10 08:51] LABS: ABG ALLEN TEST POS
[2020-10-10] MEDS: PULMICORT NEB TX 0.5 MG NEB SCH ×2 (09:05→21:18)
[2020-10-10] MEDS: BROVANA IN SCH ×2 (09:05→21:18)
[2020-10-10] MEDS: THIAMINE HCL INJ IVP SCH ×2 (09:44→21:28)
[2020-10-10] MEDS: ZINC SULFATE PO SCH (09:44)
[2020-10-10] MEDS: REMDESIVIR 100 MG in NS 250 ML IV 250 ML IV SCH (09:44)
[2020-10-10] MEDS: PEPCID TAB 40 MG PO SCH ×2 (09:44→21:25)
[2020-10-10] MEDS: PROTONIX TAB 40 MG PO SCH ×2 (09:44→21:27)
[2020-10-10] MEDS: VITAMIN D3 125 mcg (5,000 UNITS) PO SCH (09:44)
[2020-10-10] MEDS: ZyrTEC TAB 10 MG PO SCH (09:45)
[2020-10-10] MEDS: FLUVOXAMINE MALEATE PO SCH ×2 (09:45→21:27)
[2020-10-10] MEDS: ZOFRAN INJ 4 MG VIAL IVP PRN (09:55)
[2020-10-10] MEDS: LOVENOX INJ 80 MG SYR SC SCH ×2 (11:18→21:26)
[2020-10-10] MEDS: IVERMECTIN PO SCH (12:24)
[2020-10-10] MEDS: XANAX PO PRN ×2 (12:25→18:48)
[2020-10-10] MEDS: K-DUR TAB 20 MEQ PO PRN (16:03)
--- NOTE | 2020-10-10 16:32 | PCM.PROG ---
Progress Note - Progress Note for Day of Date of Exam: 10/10/20 - Subjective Subjective: MS. RICHARDS WAS ADMITTED FOR TREATMENT OF COVID PNEUMONIA AND HYPOXIA. TODAY, SHE IS ALERT AND ORIENTED, SITTING UP IN THE BED ON MORNING ROUNDS. SHE IS CURRENTLY UTILIZING OXYGEN VIA NON-REBREATHER AT 100%. SHE CONTINUES WITH COMPLAINTS OF SHORTNESS OF BREATH AND WEAKNESS TODAY. SHE REPORTS WORSENING OF SYMPTOMS TODAY. HER SATURATIONS HAVE BEEN 86-92% THIS MORNING AND THROUGHOUT THE NIGHT. ON EXAMINATION, HEART IS REGULAR IN RATE AND RHYTHM. BILATERAL LUNGS ARE NOTED WITH WHEEZING THROUGHOUT. ABDOMEN IS ROUND, SOFT, AND NON-TENDER WITH NORMAL BOWEL SOUNDS NOTED IN ALL QUADRANTS. HIS VITALS THIS MORNING ARE: 98.5-88-20-92%-94/55. LABS WERE OBTAINED. ABNORMAL LAB VALUES INCLUDE THE FOLLOWING: WBC 11.0, POTASSIUM 3.4, CHLORIDE 109, GLUCSOE 159, CALCIUM 8.1, FERRITIN 640, AST 48, CRP 14.40, BNP 181, ALBUMIN 2.3. BLOOD CULTURES ARE PENDING. ABG REVEALED: PH 7.440, PC02 40, P02 42, HC03 27.2, 02 SAT 80, A-A GRADIENT 621, FI02 100. A CHEST XRAY WAS OBTAINED AND REVEALED: Slight increase in bilateral pneumonia/pulmonary edema since 1 day earlier. SHE IS CURRENTLY RECEIVING NS AT 80 ML/HR, LEVAQUIN 500MG IV DAILY, REMDESIVIR 100MG IV DAILY, ASCORBIC ACID 1500MG IV Q6H, ALBUTEROL NEBS QID, PULMICORT NEBS BID, BROVANA INHALER BID, SOLU-MEDROL 80MG IV8H, FLUVOXAMINE 50MG PO BID, CYP ROHEPTADINE 8MG PO TID, ZOFRAN 4MG IV Q8H PRN, LOVENOX 85MG SC Q12H, LIPITOR 80MG PO HS, TESSALON PERLES 200MG PO TID, CETIRIZINE 10MG PO DAILY, IVERMECTIN, PEPCID 40MG PO BID, ROBITUSSIN DM 10ML PO QID PRN, HUMULIN R SLIDING SCALE, SINGULAIR 10MG PO HS, PROTONIX 40MG PO BID, THIAMINE 200MG IV BID, AND ZINC SULFATE 220MG PO BID. WE WILL CONTINUE WITH CURRENT PLAN OF CARE TODAY AND ATTEMPT TO WEAN DOWN OXYGEN SHE TOLERATES IT. WE WILL ADD XANAX 0.5MG PO BID PRN ANXIETY. OTHERWISE, WE WILL FOLLOW UP WITH AM LABS, CHEST XRAY, ABG, AND CONTINUE TO MONITOR. TIME SPENT ON CLINICAL ASSESSMENT, REVIEWING LABS AND IMAGING, DECISION MAKING, AND DOCUMENTATION GREATER THAN 45 MINUTES. - Past Medical Family Social History Past Med/Fam/Surg Hx: No changes since H&P Allergies: Allergies ibuprofen Adverse Reaction (Verified 10/06/20 20:57) abd pain - Review of Systems ROS: No change since H&P - Vital Signs and I&O's Vital Signs: Temperature 98.5 F Pulse Rate [Apical] 88 Pulse Rate [Left] 81 Pulse Rate 71 Respiratory Rate 20 Blood Pressure [Right Arm] 117/65 Blood Pressure [Left Arm] 94/55 Blood Pressure 117/75 O2 Sat by Pulse Oximetry 92 Intake and Output: Intake & Output 10/08/20 10/09/20 10/10/20 10/11/20 11:59 11:59 11:59 11:59 Intake Total 2140 1501 / 1501 640 / 640 Balance 2140 1501 / 1501 640 / 640 - Physical Exam Oriented: Normal Eyes: Normal Ear: Normal Nose: Normal Throat: Normal Respiratory: Generalized, Diminished, Wheezes Cardiovascular: Normal : Normal Auscultation: Bowel Sounds: Normal Tenderness: Normal Skin: Normal Musculoskeletal: Normal Psychiatric: Normal Mood Description: Calm Affect: Normal Speech Pattern: Clear, Appropriate - Laboratory and Diagnostics Result Diagrams: 10/10/20 05:34 10/10/20 05:34 Labs: 10/07/20 11:51 Blood Blood Culture - Preliminary 10/07/20 11:49 Blood Blood Culture - Preliminary Laboratory WBC 11.0 X10^3/uL (3.6-10.0) H 10/10/20 05:34 RBC 3.97 X10^6/uL (3.5-5.4) 10/10/20 05:34 Hgb 13.0 g/dL (12.0-16.0) 10/10/20 05:34 Hct 37.7 % (36.0-47.0) 10/10/20 05:34 MCV 94.9 fL (80.0-100.0) 10/10/20 05:34 MCH 32.7 pg (27.0-34.0) 10/10/20 05:34 MCHC 34.4 g/dL (33.0-35.0) 10/10/20 05:34 RDW 13.7 % (11.6-16.5) 10/10/20 05:34 Plt Count 251 X10^3/uL (150.0-450.0) 10/10/20 05:34 MPV 8.8 fL (7.4-11.0) 10/10/20 05:34 Neut % (Auto) 87.5 % (42.0-75.0) H 10/10/20 05:34 Lymph % (Auto) 6.9 % (21.0-51.0) L 10/10/20 05:34 [place] % (Auto) 5.5 % (0.0-13.0) 10/10/20 05:34 Eos % (Auto) 0.0 % (0.9-2.9) L 10/10/20 05:34 Baso % (Auto) 0.1 % (0.2-1.0) L 10/10/20 05:34 Neut # (Auto) 9.6 x10^3/uL (2.2-4.8) H 10/10/20 05:34 Lymph # (Auto) 0.8 X10^3/uL (1.3-2.9) L 10/10/20 05:34 [place] # (Auto) 0.6 x10^3/uL (0.3-0.8) 10/10/20 05:34 Eos # (Auto) 0.0 x10^3/uL (0.0-0.2) 10/10/20 05:34 Baso # (Auto) 0.0 X10^3/uL (0.0-0.1) 10/10/20 05:34 Absolute Nucleated RBC 0.1 /100WBC 10/10/20 05:34 D-Dimer < 0.27 ug/ml (0.0-0.57) 10/10/20 05:34 Sample Site Rb 10/10/20 04:29 ABG pH 7.440 (7.35-7.45) 10/10/20 04:29 ABG pCO2 40.0 mmHg (35.0-45.0) 10/10/20 04:29 ABG pO2 42.0 mmHg (80.0-100.0) L* 10/10/20 04:29 ABG HCO3 27.2 mmol/L (22-26) H 10/10/20 04:29 ABG O2 Saturation 80.0 % (90-100) L* 10/10/20 04:29 ABG Base Excess 2.8 mmol/L (-2.0-2.0) H 10/10/20 04:29 Loyd Test Pos 10/10/20 04:29 A-a Gradient 621.0 mmHg 10/10/20 04:29 FiO2 100.0 10/10/20 04:29 Blood Gas Comments Coby well 10/10/20 04:29 Sodium 144 mmol/L (136-145) 10/10/20 05:34 Corrected Sodium 145 mmol/L (136-145) 10/10/20 05:34 Potassium 3.4 mmol/L (3.5-5.1) L 10/10/20 05:34 Chloride 109 mmol/L (98-107) H 10/10/20 05:34 Carbon Dioxide 27.5 mmol/L (21-32) 10/10/20 05:34 BUN 16 mg/dL (7-18) 10/10/20 05:34 Creatinine 0.94 mg/dL (0.55-1.02) 10/10/20 05:34 Est GFR (MDRD) Af Amer > 60 (>60) 10/10/20 05:34 Est GFR (MDRD) Non-Af > 60 (>60) 10/10/20 05:34 Glucose 159 mg/dL (65-99) H 10/10/20 05:34 Calcium 8.1 mg/dL (8.5-10.1) L 10/10/20 05:34 Corrected Calcium 9.5 mg/dL (8.5-10.1) 10/10/20 05:34 Magnesium 2.5 mg/dL (1.7-2.9) 10/10/20 05:34 Ferritin 640 ng/mL (8-252) H 10/10/20 05:34 Total Bilirubin 0.80 mg/dL (0.2-1.0) 10/10/20 05:34 AST 48 Units/L (15-37) H 10/10/20 05:34 ALT 66 Units/L (12-78) 10/10/20 05:34 Alkaline Phosphatase 90 Units/L (46-116) 10/10/20 05:34 Creatine Kinase 180 Units/L (26-192) 10/07/20 11:49 CK-MB (CK-2) < 1.0 ng/mL (0-4.0) 10/07/20 11:49 CK/CKMB % Calc 0.6 % (<4) 10/07/20 11:49 Troponin I < 0.02 ng/mL (0-1.5) 10/07/20 11:49 C-Reactive Protein 14.40 mg/L (0-3.0) H 10/10/20 05:34 B-Natriuretic Peptide 181 pg/mL (0-79) H 10/10/20 05:34 Total Protein 6.4 g/dL (6.4-8.2) 10/10/20 05:34 Albumin 2.3 g/dL (3.4-5.0) L 10/10/20 05:34 Globulin 4.1 g/dL (2.5-4.5) 10/10/20 05:34 Albumin/Globulin Ratio 0.6 Ratio (1.1-2.1) L 10/10/20 05:34 - Plan (1) Pneumonia due to COVID-19 virus Status: Acute Plan: SUPPLEMENTAL OXYGEN, NS AT 80 ML/HR, LEVAQUIN 500MG IV DAILY, REMDESIVIR 100MG IV DAILY, ASCORBIC ACID 1500MG IV Q6H, ALBUTEROL NEBS QID, PULMICORT NEBS BID, BROVANA INHALER BID, SOLU-MEDROL 80MG IV8H, FLUVOXAMINE 50MG PO BID, CYPROHEPTADINE 8MG PO TID, ZOFRAN 4MG IV Q8H PRN, LOVENOX 85MG SC Q12H, LIPITOR 80MG PO HS, TESSALON PERLES 200MG PO TID, CETIRIZINE 10MG PO DAILY, IVERMECTIN, PEPCID 40MG PO BID, ROBITUSSIN DM 10ML PO QID PRN, HUMULIN R SLIDING SCALE, SINGULAIR 10MG PO HS, PROTONIX 40MG PO BID, THIAMINE 200MG IV BID, AND ZINC SULF ATE 220MG PO BID (2) Hypoxia Status: Acute
[2020-10-10] MEDS: SINGULAIR TAB 10 MG PO SCH (21:26)
[2020-10-10] MEDS: LIPITOR TAB 80 MG PO SCH (21:27)
[2020-10-10] MEDS: MELATONIN PO SCH (21:28)
[2020-10-10] MEDS: SNACK - Diabetic Appropriate PO SCH (23:03)
[2020-10-11] MEDS: LEVAQUIN PREMIX IV 500 MG 500 MG/100 ML BAG IV SCH (01:03)
[2020-10-11] MEDS: ASCORBIC ACID INJ MULTI-DOSE VIAL 1,500 MG in NS 50 ML IV 50 ML IV SCH ×4 (02:56→21:45)
[2020-10-11 04:46] LABS: ABG ALLEN TEST POS; ABG HCO3 27.6 mmol/L (22-26)
[2020-10-11] MEDS: ACCUNEB 1.25 MG NEBULE NEB SCH ×3 (06:08→20:35)
[2020-10-11] MEDS: PERIACTIN TAB 4 MG PO SCH ×3 (06:22→21:48)
[2020-10-11] MEDS: TESSALON PERLES PO SCH ×3 (06:22→21:48)
[2020-10-11] MEDS: SOLU-Medrol 125 MG VIAL IVP SCH ×3 (06:22→21:48)
[2020-10-11 06:56] LABS: BASOPHILS % (AUTO) 0.1 % (0.2-1.0); HEMATOCRIT 36.7 % (36.0-47.0); HEMOGLOBIN 12.5 g/dL (12.0-16.0); LYMPHOCYTES # (AUTO) 0.6 X10^3/uL (1.3-2.9); LYMPHOCYTES % (AUTO) 5.4 % (21.0-51.0); MEAN CORPUSCULAR HEMOGLOBIN 32.2 pg (27.0-34.0); MEAN CORPUSCULAR HGB CONC 34.1 g/dL (33.0-35.0); MEAN CORPUSCULAR VOLUME 94.7 fL (80.0-100.0); MEAN PLATELET VOLUME 8.8 fL (7.4-11.0); MONOCYTES # (AUTO) 0.5 x10^3/uL (0.3-0.8); MONOCYTES % (AUTO) 4.3 % (0.0-13.0); NEUTROPHILS # (AUTO) 10.8 x10^3/uL (2.2-4.8); NEUTROPHILS % (AUTO) 90.2 % (42.0-75.0); PLATELET COUNT 269 X10^3/uL (150.0-450.0); RED BLOOD COUNT 3.88 X10^6/uL (3.5-5.4); RED CELL DISTRIBUTION WIDTH 13.5 % (11.6-16.5); WHITE BLOOD COUNT 11.9 X10^3/uL (3.6-10.0)
[2020-10-11 07:14] LABS: ALANINE AMINOTRANSFERASE 66 Units/L (12-78); ALBUMIN 2.2 g/dL (3.4-5.0); ALKALINE PHOSPHATASE 96 Units/L (46-116); ASPARTATE AMINO TRANSFERASE 50 Units/L (15-37); BLOOD UREA NITROGEN 17 mg/dL (7-18); CALCIUM 7.8 mg/dL (8.5-10.1); CARBON DIOXIDE 26.2 mmol/L (21-32); CHLORIDE 108 mmol/L (98-107); COR CA(FOR HYPOALB) 9.2 mg/dL (8.5-10.1); COR NA(FOR HYPERGLY) 146 mmol/L (136-145); CREATININE 0.88 mg/dL (0.55-1.02); SODIUM 144 mmol/L (136-145); TOTAL PROTEIN 6.3 g/dL (6.4-8.2); eGFR NON BLACK RACES > 60 (>60)
[2020-10-11 07:29] LABS: PLATELET MORPHOLOGY COMMENT NORMAL (NORMAL)
--- NOTE | 2020-10-11 08:12 | RAD ---
HISTORYSOBSTUDYCHEST, 1 [id number] opacity in the left and right lung better appreciated on the original CT 10/07/2020. Probably not changed significantly from the more recent chest x-ray from yesterday.No pleural effusion or pneumothorax.Heart size is normal.Bones are unremarkable.IMPRESSION1. Unchanged pneumoniaElectronically signed by: Jason Barber (Oct 11, 2020 08:09:59)
[2020-10-11] MEDS: PEPCID TAB 40 MG PO SCH ×2 (08:57→21:47)
[2020-10-11] MEDS: FLUVOXAMINE MALEATE PO SCH ×2 (08:57→21:45)
[2020-10-11] MEDS: ZINC SULFATE PO SCH (08:58)
[2020-10-11] MEDS: VITAMIN D3 125 mcg (5,000 UNITS) PO SCH (08:58)
[2020-10-11] MEDS: ZyrTEC TAB 10 MG PO SCH (08:58)
[2020-10-11] MEDS: PROTONIX TAB 40 MG PO SCH ×2 (08:58→21:47)
[2020-10-11] MEDS: THIAMINE HCL INJ IVP SCH ×2 (08:58→21:47)
[2020-10-11] MEDS: K-DUR TAB 20 MEQ PO PRN (09:17)
[2020-10-11] MEDS: LOVENOX INJ 80 MG SYR SC SCH ×2 (09:17→21:46)
[2020-10-11] MEDS: NORCO 5/325 MG TAB PO PRN (09:18)
[2020-10-11] MEDS: BROVANA IN SCH ×2 (09:40→20:35)
[2020-10-11] MEDS: PULMICORT NEB TX 0.5 MG NEB SCH ×2 (09:41→20:35)
[2020-10-11] MEDS: REMDESIVIR 100 MG in NS 250 ML IV 250 ML IV SCH (10:14)
[2020-10-11] MEDS: NS 1000 ML 1,000 ML IV SCH ×3 (15:05→21:46)
--- NOTE | 2020-10-11 18:28 | PCM.PROG ---
Progress Note - Progress Note for Day of Date of Exam: 10/11/20 - Subjective Subjective: MS. RICHARDS WAS ADMITTED FOR TREATMENT OF COVID PNEUMONIA AND HYPOXIA. SHE RECEIVED [facility] IN [place], [place] ON 10/05/20. TODAY, SHE IS ALERT AND ORIENTED, SITTING UP IN THE CHAIR ON MORNING ROUNDS. SHE IS CURRENTLY UTILIZING THE BIPAP AT 100%. SHE CONTINUES WITH COMPLAINTS OF SH ORTNESS OF BREATH AND WEAKNESS TODAY. SHE DENIES SIGNIFICANT IMPROVEMENT IN SYMPTOMS. HER SATURATIONS HAVE BEEN 86-93% THIS MORNING AND THROUGHOUT THE NIGHT. ON EXAMINATION, HEART IS REGULAR IN RATE AND RHYTHM. BILATERAL LUNGS ARE NOTED WITH WHEEZING THROUGHOUT. ABDOMEN IS ROUND, SOFT, AND NON-TENDER WITH NORMAL BOWEL SOUNDS NOTED IN ALL QUADRANTS. HIS VITALS THIS MORNING ARE: 97.8-81-20-93%-115/75. LABS WERE OBTAINED. ABNORMAL LAB VALUES INCLUDE THE FOLLOWING: WBC 11.9, POTASSIUM 3.3, CHLORIDE 108, GLUCOSE 197, CALCIUM 7.8, FERRITIN 553, AST 50, CRP 12.80, BNP 130, TOTAL PROTEIN 6.3. BLOOD CULTURES ARE PENDING. ABG REVEALED: PH 7.480, PC02 37, P02 51, HC03 27.6, 02 SAT 88, BASE EXCESS 4.0, A-A GRADIENT 616, FI02 100. A CHEST XRAY WAS OBTAINED AND REVEALED: UNCHANGED PNEUMONIA. SHE IS CURRENTLY RECEIVING NS AT 80 ML/HR, LEVAQUIN 500MG IV DAILY, ASCORBIC ACID 1500MG IV Q6H, ALBUTEROL NEBS QID, PULMICORT NEBS BID, SOLU-MEDROL 80MG IV8H, XANAX 0.5MG PO BID PRN, FLUVOXAMINE 50MG PO BID, C YPROHEPTADINE 8MG PO TID, ZOFRAN 4MG IV Q8H PRN, LOVENOX 85MG SC Q12H, LIPITOR 80MG PO HS, TESSALON PERLES 200MG PO TID, CETIRIZINE 10MG PO DAILY, IVERMECTIN, PEPCID 40MG PO BID, ROBITUSSIN DM 10ML PO QID PRN, HUMULIN R SLIDING SCALE, SINGULAIR 10MG PO HS, PROTONIX 40MG PO BID, THIAMINE 200MG IV BID, AND ZINC SULFATE 220MG PO BID. SHE HAS FINISHED A 5 DOSE COURSE OF REMDESIVIR. WE WILL CONTINUE WITH CURRENT PLAN OF CARE TODAY AND ATTEMPT TO WEAN DOWN OXYGEN SHE TOLERATES IT. WE WILL FOLLOW UP WITH AM LABS, CHEST XRAY, ABG, AND CONTINUE TO MONITOR. TIME SPENT ON CLINICAL ASSESSMENT, REVIEWING LABS AND IMAGING, DECISION MAKING, AND DOCUMENTATION GREATER THAN 45 MINUTES. - Past Medical Family Social History Past Med/Fam/Surg Hx: No changes since H&P Allergies: Allergies ibuprofen Adverse Reaction (Verified 10/06/20 20:57) abd pain - Review of Systems ROS: No change since H&P - Vital Signs and I&O's Vital Signs: Temperature 98.3 F Pulse Rate [Apical] 75 Pulse Rate [Left] 81 Pulse Rate 73 Respiratory Rate 20 Blood Pressure [Right Arm] 117/65 Blood Pressure [Left Arm] 103/58 Blood Pressure 117/75 O2 Sat by Pulse Oximetry 95 Intake and Output: Intake & Output 10/09/20 10/10/20 10/11/20 10/12/20 11:59 11:59 11:59 11:59 Intake Total 1979 1501 / 1501 3012 / 3012 760 / 760 Balance 1979 1501 / 1501 3012 / 3012 760 / 760 - Physical Exam Oriented: Normal Eyes: Normal Ear: Normal Nose: Normal Throat: Normal Respiratory: Generalized, Diminished, Wheezes Cardiovascular: Normal : Normal Auscultation: Bowel Sounds: Normal Palpation: Normal Tenderness: Normal Skin: Normal Musculoskeletal: Normal Psychiatric: Normal Mood Description: Calm Affect: Normal Speech Pattern: Clear, Appropriate - Laboratory and Diagnostics Result Diagrams: 10/11/20 05:24 10/11/20 11:14 Labs: 10/07/20 11:51 Blood Blood Culture - Preliminary 10/07/20 11:49 Blood Blood Culture - Preliminary Laboratory WBC 11.9 X10^3/uL (3.6-10.0) H 10/11/20 05:24 RBC 3.88 X10^6/uL (3.5-5.4) 10/11/20 05:24 Hgb 12.5 g/dL (12.0-16.0) 10/11/20 05:24 Hct 36.7 % (36.0-47.0) 10/11/20 05:24 MCV 94.7 fL (80.0-100.0) 10/11/20 05:24 MCH 32.2 pg (27.0-34.0) 10/11/20 05:24 MCHC 34.1 g/dL (33.0-35.0) 10/11/20 05:24 RDW 13.5 % (11.6-16.5) 10/11/20 05:24 Plt Count 269 X10^3/uL (150.0-450.0) 10/11/20 05:24 Plt Count Comment Adequate (ADEQUATE) 10/11/20 05:24 MPV 8.8 fL (7.4-11.0) 10/11/20 05:24 Neut % (Auto) 90.2 % (42.0-75.0) H 10/11/20 05:24 Lymph % (Auto) 5.4 % (21.0-51.0) L 10/11/20 05:24 [place] % (Auto) 4.3 % (0.0-13.0) 10/11/20 05:24 Eos % (Auto) 0.0 % (0.9-2.9) L 10/11/20 05:24 Baso % (Auto) 0.1 % (0.2-1.0) L 10/11/20 05:24 Neut # (Auto) 10.8 x10^3/uL (2.2-4.8) H 10/11/20 05:24 Lymph # (Auto) 0.6 X10^3/uL (1.3-2.9) L 10/11/20 05:24 [place] # (Auto) 0.5 x10^3/uL (0.3-0.8) 10/11/20 05:24 Eos # (Auto) 0.0 x10^3/uL (0.0-0.2) 10/11/20 05:24 Baso # (Auto) 0.0 X10^3/uL (0.0-0.1) 10/11/20 05:24 Absolute Nucleated RBC 0.1 /100WBC 10/11/20 05:24 Total Counted 100 10/11/20 05:24 Neutrophils % (Manual) 91 % (39-76) H 10/11/20 05:24 Lymphocytes % (Manual) 7 % (13-43) L 10/11/20 05:24 Monocytes % (Manual) 2 % (4-9) L 10/11/20 05:24 Plt Morphology Comment Normal (NORMAL) 10/11/20 05:24 RBC Morphology Normal (NORMAL) 10/11/20 05:24 D-Dimer 0.34 ug/ml (0.0-0.57) 10/11/20 05:24 Sample Site Rrad 10/11/20 04:39 ABG pH 7.480 (7.35-7.45) H 10/11/20 04:39 ABG pCO2 37.0 mmHg (35.0-45.0) 10/11/20 04:39 ABG pO2 51.0 mmHg (80.0-100.0) L 10/11/20 04:39 ABG HCO3 27.6 mmol/L (22-26) H 10/11/20 04:39 ABG O2 Saturation 88.0 % (90-100) L 10/11/20 04:39 ABG Base Excess 4.0 mmol/L (-2.0-2.0) H 10/11/20 04:39 Loyd Test Pos 10/11/20 04:39 A-a Gradient 616.0 mmHg 10/11/20 04:39 FiO2 100.0 10/11/20 04:39 Blood Gas Comments Coby well sa 10/11/20 04:39 Sodium 144 mmol/L (136-145) 10/11/20 05:24 Corrected Sodium 146 mmol/L (136-145) H 10/11/20 05:24 Potassium 3.5 mmol/L (3.5-5.1) 10/11/20 11:14 Chloride 108 mmol/L (98-107) H 10/11/20 05:24 Carbon Dioxide 26.2 mmol/L (21-32) 10/11/20 05:24 BUN 17 mg/dL (7-18) 10/11/20 05:24 Creatinine 0.88 mg/dL (0.55-1.02) 10/11/20 05:24 Est GFR (MDRD) Af Amer > 60 (>60) 10/11/20 05:24 Est GFR (MDRD) Non-Af > 60 (>60) 10/11/20 05:24 Glucose 197 mg/dL (65-99) H 10/11/20 05:24 Calcium 7.8 mg/dL (8.5-10.1) L 10/11/20 05:24 Corrected Calcium 9.2 mg/dL (8.5-10.1) 10/11/20 05:24 Magnesium 2.5 mg/dL (1.7-2.9) 10/10/20 05:34 Ferritin 553 ng/mL (8-252) H 10/11/20 05:24 Total Bilirubin 1.00 mg/dL (0.2-1.0) 10/11/20 05:24 AST 50 Units/L (15-37) H 10/11/20 05:24 ALT 66 Units/L (12-78) 10/11/20 05:24 Alkaline Phosphatase 96 Units/L (46-116) 10/11/20 05:24 Creatine Kinase 180 Units/L (26-192) 10/07/20 11:49 CK-MB (CK-2) < 1.0 ng/mL (0-4.0) 10/07/20 11:49 CK/CKMB % Calc 0.6 % (<4) 10/07/20 11:49 Troponin I < 0.02 ng/mL (0-1.5) 10/07/20 11:49 C-Reactive Protein 12.80 mg/L (0-3.0) H 10/11/20 05:24 B-Natriuretic Peptide 130 pg/mL (0-79) H 10/11/20 05:24 Total Protein 6.3 g/dL (6.4-8.2) L 10/11/20 05:24 Albumin 2.2 g/dL (3.4-5.0) L 10/11/20 05:24 Globulin 4.1 g/dL (2.5-4.5) 10/11/20 05:24 Albumin/Globulin Ratio 0.5 Ratio (1.1-2.1) L 10/11/20 05:24 - Plan (1) Pneumonia due to COVID-19 virus Status: Acute Plan: SUPPLEMENTAL OXYGEN, NS AT 80 ML/HR, LEVAQUIN 500MG IV DAILY, ASCORBIC ACID 1500MG IV Q6H, ALBUTEROL NEBS QID, PULMICORT NEBS BID, SOLU-MEDROL 80MG IV8H, FLUVOXAMINE 50MG PO BID, CYPROHEPTADINE 8MG PO TID, ZOFRAN 4MG IV Q8H PRN, LOVENOX 85MG SC Q12H, LIPITOR 80MG PO HS, TESSALON PERLES 200MG PO TID, CETIRIZINE 10MG PO DAILY, IVERMECTIN, PEPCID 40MG PO BID, ROBITUSSIN DM 10ML PO QID PRN, HUMULIN R SLIDING SCALE, SINGULAIR 10MG PO HS, PROTONIX 40MG PO BID, THIAMINE 200MG IV BID, AND ZINC SULFATE 220MG PO BID (2) Hypoxia Status: Acute
[2020-10-11] MEDS: SNACK - Diabetic Appropriate PO SCH (21:44)
[2020-10-11] MEDS: LIPITOR TAB 80 MG PO SCH (21:46)
[2020-10-11] MEDS: SINGULAIR TAB 10 MG PO SCH (21:47)
[2020-10-11] MEDS: MELATONIN PO SCH (21:47)
[2020-10-11] MEDS: XANAX PO PRN (21:49)
[2020-10-12] MEDS: LEVAQUIN PREMIX IV 500 MG 500 MG/100 ML BAG IV SCH (01:38)
[2020-10-12] MEDS: ASCORBIC ACID INJ MULTI-DOSE VIAL 1,500 MG in NS 50 ML IV 50 ML IV SCH ×4 (04:04→20:53)
[2020-10-12 05:23] LABS: ABG BASE EXCESS 3.3 mmol/L (-2.0-2.0); ABG HCO3 26.8 mmol/L (22-26)
[2020-10-12 05:24] LABS: ABG ALLEN TEST POS
[2020-10-12] MEDS: ACCUNEB 1.25 MG NEBULE NEB SCH ×4 (05:44→21:51)
[2020-10-12] MEDS: PERIACTIN TAB 4 MG PO SCH ×3 (06:14→20:59)
[2020-10-12] MEDS: SOLU-Medrol 125 MG VIAL IVP SCH ×3 (06:15→21:00)
[2020-10-12] MEDS: TESSALON PERLES PO SCH ×3 (06:15→20:59)
[2020-10-12 06:50] LABS: BASOPHILS % (AUTO) 0.1 % (0.2-1.0); HEMATOCRIT 36.3 % (36.0-47.0); HEMOGLOBIN 12.3 g/dL (12.0-16.0); LYMPHOCYTES # (AUTO) 0.7 X10^3/uL (1.3-2.9); LYMPHOCYTES % (AUTO) 5.7 % (21.0-51.0); MEAN CORPUSCULAR HEMOGLOBIN 32.1 pg (27.0-34.0); MEAN CORPUSCULAR VOLUME 94.5 fL (80.0-100.0); MEAN PLATELET VOLUME 8.8 fL (7.4-11.0); MONOCYTES # (AUTO) 0.7 x10^3/uL (0.3-0.8); MONOCYTES % (AUTO) 5.2 % (0.0-13.0); NEUTROPHILS # (AUTO) 11.5 x10^3/uL (2.2-4.8); PLATELET COUNT 297 X10^3/uL (150.0-450.0); RED BLOOD COUNT 3.84 X10^6/uL (3.5-5.4); RED CELL DISTRIBUTION WIDTH 13.5 % (11.6-16.5)
[2020-10-12] MEDS: NS 1000 ML 1,000 ML IV SCH ×3 (07:06→20:50)
[2020-10-12 08:04] LABS: ALANINE AMINOTRANSFERASE 64 Units/L (12-78); ALBUMIN 2.3 g/dL (3.4-5.0); ALKALINE PHOSPHATASE 104 Units/L (46-116); ASPARTATE AMINO TRANSFERASE 49 Units/L (15-37); BLOOD UREA NITROGEN 17 mg/dL (7-18); CARBON DIOXIDE 25.5 mmol/L (21-32); CHLORIDE 109 mmol/L (98-107); COR CA(FOR HYPOALB) 9.4 mg/dL (8.5-10.1); COR NA(FOR HYPERGLY) 146 mmol/L (136-145); SODIUM 144 mmol/L (136-145); TOTAL PROTEIN 6.3 g/dL (6.4-8.2); eGFR NON BLACK RACES > 60 (>60)
--- NOTE | 2020-10-12 08:16 | RAD ---
HISTORYSOBSTUDYCHEST, 1 [id number] opacity in the left and right lung had a lobular pattern on the study 10/07/2020 compatible with bronchopneumonia. There may be slight progression from yesterday. But there is no pleural effusion or pneumothorax.Heart size is normal.Bones are unremarkable.IMPRESSION1. Bronchopneumonia, slightly progressedElectronically signed by: Jason Barber (Oct 12, 2020 08:15:03)
[2020-10-12] MEDS: PULMICORT NEB TX 0.5 MG NEB SCH ×2 (08:57→21:51)
[2020-10-12] MEDS: BROVANA IN SCH ×2 (08:57→21:51)
[2020-10-12] MEDS: PEPCID TAB 40 MG PO SCH ×2 (09:04→20:56)
[2020-10-12] MEDS: LOVENOX INJ 80 MG SYR SC SCH ×2 (09:04→20:54)
[2020-10-12] MEDS: FLUVOXAMINE MALEATE PO SCH ×2 (09:04→20:55)
[2020-10-12] MEDS: ZyrTEC TAB 10 MG PO SCH (09:05)
[2020-10-12] MEDS: PROTONIX TAB 40 MG PO SCH ×2 (09:05→20:56)
[2020-10-12] MEDS: XANAX PO PRN ×2 (09:05→20:55)
[2020-10-12] MEDS: ZINC SULFATE PO SCH (09:05)
[2020-10-12] MEDS: VITAMIN D3 125 mcg (5,000 UNITS) PO SCH (09:05)
[2020-10-12] MEDS: NORCO 5/325 MG TAB PO PRN ×2 (09:09→20:55)
[2020-10-12] MEDS: THIAMINE HCL INJ IVP SCH ×2 (10:19→20:50)
[2020-10-12] MEDS: LIPITOR TAB 80 MG PO SCH (20:55)
[2020-10-12] MEDS: SINGULAIR TAB 10 MG PO SCH (20:56)
[2020-10-12] MEDS: MELATONIN PO SCH (20:56)
--- NOTE | 2020-10-12 22:40 | PCM.PROG ---
Progress Note Progress Note for Day of Date of Exam: 10/12/20 Subjective Subjective: PT IS A 55 YEAR OLD FEMALE ADMITTED FOR TREATMENT OF COVID PNEUMONIA AND HYPOXIA. SHE RECEIVED [facility]-COV INFUSION IN [place], [place] ON 10/05/20. THIS MORNING SHE IS RESTING COMFORTABLY IN BED, REPORTS NO CHANGE IN HER RESPIRATORY STATUS, CONTINUES WITH COMPLAINTS OF SHORTNESS OF BREATH AND WEAKNESS. SHE IS CURRENTLY UTILIZING HEATED HIGH FLOW OXYGEN WITH FIO2 AT 81%. ON EXAMINATION, HEART IS REGULAR IN RATE AND RHYTHM. BILATERAL LUNGS ARE NOTED WITH WHEEZING THROUGHOUT. ABDOMEN IS ROUND, SOFT, AND NON-TENDER WITH NORMAL BOWEL SOUNDS NOTED IN ALL QUADRANTS. LABS/IMAGING: WBC 13, HGB 12.3, PLT 297, NA 144, K 3.4, CREATININE 0.80, GLUCOSE 189, CRP 9.40, BLOOD CULTURES NGTD. ABG REVEALED: PH 7.48, PC02 36, P02 50, HC03 26, 02 SAT 88 ON FIO2 OF 92%. A CHEST XRAY WAS OBTAINED AND REVEALED: BRONCHOPNEUMONIA, SLIGHTLY PROGRESSED. SHE IS CURRENTLY RECEIVING NS AT 80 ML/HR, LEVAQUIN 500MG IV DAILY, ASCORBIC ACID 1500MG IV Q6H, ALBUTEROL NEBS QID, PULMICORT NEBS BID, SOLU-MEDROL 80MG IV8H, XANAX 0.5MG PO BID PRN, FLUVOXAMINE 50MG PO BID, CYPROHEPTADINE 8MG PO TID, ZOFRAN 4MG IV Q8H PRN, LOVENOX 85MG SC Q12H, LIPITOR 80MG PO HS, TESSALON PERLES 200MG PO TID, CETIRIZINE 10MG PO DAILY, IVERMECTIN, PEPCID 40MG PO BID, ROBITUSSIN DM 10ML PO QID PRN, HUMULIN R SLIDING SCALE, SINGULAIR 10MG PO HS, PROTONIX 40MG PO BID, THIAMINE 200MG IV BID, AND ZINC SULFATE 220MG PO BID. SHE HAS FINISHED A 5 DOSE COURSE OF REMDESIVIR. CONTINUE WITH CURRENT PLAN OF CARE TODAY AND ATTEMPT TO WEAN DOWN OXYGEN TOLERATED. FOLLOW UP WITH AM LABS, CHEST XRAY, ABG, AND CONTINUE TO MONITOR. TIME SPENT ON CLINICAL ASSESSMENT, REVIEWING LABS AND IMAGING, DECISION MAKING, AND DOCUMENTATION GREATER THAN 45 MINUTES. Past Medical Family Social History Past Med/Fam/Surg Hx: No changes since H&P Allergies: Allergies ibuprofen Adverse Reaction (Verified 10/06/20 20:57) abd pain Review of Systems ROS: No change since H&P Vital Signs and I&O's Vital Signs: Temperature 98.4 F Pulse Rate [Apical] 100 Pulse Rate [Left] 81 Pulse Rate 86 Respiratory Rate 22 Blood Pressure [Right Arm] 117/65 Blood Pressure [Left Arm] 125/81 Blood Pressure 117/75 O2 Sat by Pulse Oximetry 89 Intake and Output: Intake & Output 10/09/20 10/10/20 10/11/20 10/12/20 23:59 23:59 23:59 23:59 Intake Total 1580 / 1700 3129 / 3129 1646 / 1646 1323 / 1323 Balance 1580 / 1700 3129 / 3129 1646 / 1646 1323 / 1323 Physical Exam Oriented: Normal Eyes: Normal Ear: Normal Nose: Normal Throat: Normal Respiratory: Generalized, Diminished and Wheezes Cardiovascular: Normal : Normal Auscultation: Bowel Sounds: Normal Tenderness: Normal Skin: Normal Musculoskeletal: Normal Psychiatric: Normal Mood Description: Calm Affect: Normal Speech Pattern: Clear and Appropriate Laboratory and Diagnostics Result Diagrams: 10/12/20 05:33 10/12/20 05:33 Labs: 10/07/20 11:51 Blood Blood Culture - Final 10/07/20 11:49 Blood Blood Culture - Final Laboratory WBC 13.0 X10^3/uL (3.6-10.0) H 10/12/20 05:33 RBC 3.84 X10^6/uL (3.5-5.4) 10/12/20 05:33 Hgb 12.3 g/dL (12.0-16.0) 10/12/20 05:33 Hct 36.3 % (36.0-47.0) 10/12/20 05:33 MCV 94.5 fL (80.0-100.0) 10/12/20 05:33 MCH 32.1 pg (27.0-34.0) 10/12/20 05:33 MCHC 34.0 g/dL (33.0-35.0) 10/12/20 05:33 RDW 13.5 % (11.6-16.5) 10/12/20 05:33 Plt Count 297 X10^3/uL (150.0-450.0) 10/12/20 05:33 Plt Count Comment Adequate (ADEQUATE) 10/11/20 05:24 MPV 8.8 fL (7.4-11.0) 10/12/20 05:33 Neut % (Auto) 89.0 % (42.0-75.0) H 10/12/20 05:33 Lymph % (Auto) 5.7 % (21.0-51.0) L 10/12/20 05:33 [place] % (Auto) 5.2 % (0.0-13.0) 10/12/20 05:33 Eos % (Auto) 0.0 % (0.9-2.9) L 10/12/20 05:33 Baso % (Auto) 0.1 % (0.2-1.0) L 10/12/20 05:33 Neut # (Auto) 11.5 x10^3/uL (2.2-4.8) H 10/12/20 05:33 Lymph # (Auto) 0.7 X10^3/uL (1.3-2.9) L 10/12/20 05:33 [place] # (Auto) 0.7 x10^3/uL (0.3-0.8) 10/12/20 05:33 Eos # (Auto) 0.0 x10^3/uL (0.0-0.2) 10/12/20 05:33 Baso # (Auto) 0.0 X10^3/uL (0.0-0.1) 10/12/20 05:33 Absolute Nucleated RBC 0.1 /100WBC 10/12/20 05:33 Total Counted 100 10/11/20 05:24 Neutrophils % (Manual) 91 % (39-76) H 10/11/20 05:24 Lymphocytes % (Manual) 7 % (13-43) L 10/11/20 05:24 Monocytes % (Manual) 2 % (4-9) L 10/11/20 05:24 Plt Morphology Comment Normal (NORMAL) 10/11/20 05:24 RBC Morphology Normal (NORMAL) 10/11/20 05:24 D-Dimer 0.40 ug/ml (0.0-0.57) 10/12/20 05:33 Sample Site Rrad 10/12/20 05:15 ABG pH 7.480 (7.35-7.45) H 10/12/20 05:15 ABG pCO2 36.0 mmHg (35.0-45.0) 10/12/20 05:15 ABG pO2 50.0 mmHg (80.0-100.0) L 10/12/20 05:15 ABG HCO3 26.8 mmol/L (22-26) H 10/12/20 05:15 ABG O2 Saturation 88.0 % (90-100) L 10/12/20 05:15 ABG Base Excess 3.3 mmol/L (-2.0-2.0) H 10/12/20 05:15 Loyd Test Pos 10/12/20 05:15 A-a Gradient 561.0 mmHg 10/12/20 05:15 FiO2 92.0 10/12/20 05:15 Blood Gas Comments Coby well ah 10/12/20 05:15 Sodium 144 mmol/L (136-145) 10/12/20 05:33 Corrected Sodium 146 mmol/L (136-145) H 10/12/20 05:33 Potassium 3.4 mmol/L (3.5-5.1) L 10/12/20 05:33 Chloride 109 mmol/L (98-107) H 10/12/20 05:33 Carbon Dioxide 25.5 mmol/L (21-32) 10/12/20 05:33 BUN 17 mg/dL (7-18) 10/12/20 05:33 Creatinine 0.80 mg/dL (0.55-1.02) 10/12/20 05:33 Est GFR (MDRD) Af Amer > 60 (>60) 10/12/20 05:33 Est GFR (MDRD) Non-Af > 60 (>60) 10/12/20 05:33 Glucose 189 mg/dL (65-99) H 10/12/20 05:33 Calcium 8.0 mg/dL (8.5-10.1) L 10/12/20 05:33 Corrected Calcium 9.4 mg/dL (8.5-10.1) 10/12/20 05:33 Magnesium 2.5 mg/dL (1.7-2.9) 10/10/20 05:34 Ferritin 531 ng/mL (8-252) H 10/12/20 05:33 Total Bilirubin 0.90 mg/dL (0.2-1.0) 10/12/20 05:33 AST 49 Units/L (15-37) H 10/12/20 05:33 ALT 64 Units/L (12-78) 10/12/20 05:33 Alkaline Phosphatase 104 Units/L (46-116) 10/12/20 05:33 Creatine Kinase 180 Units/L (26-192) 10/07/20 11:49 CK-MB (CK-2) < 1.0 ng/mL (0-4.0) 10/07/20 11:49 CK/CKMB % Calc 0.6 % (<4) 10/07/20 11:49 Troponin I < 0.02 ng/mL (0-1.5) 10/07/20 11:49 C-Reactive Protein 9.40 mg/L (0-3.0) H 10/12/20 05:33 B-Natriuretic Peptide 108 pg/mL (0-79) H 10/12/20 05:33 Total Protein 6.3 g/dL (6.4-8.2) L 10/12/20 05:33 Albumin 2.3 g/dL (3.4-5.0) L 10/12/20 05:33 Globulin 4.0 g/dL (2.5-4.5) 10/12/20 05:33 Albumin/Globulin Ratio 0.6 Ratio (1.1-2.1) L 10/12/20 05:33 Plan (1) Pneumonia due to COVID-19 virus: Status: Acute Plan: SUPPLEMENTAL OXYGEN, NS AT 80 ML/HR, LEVAQUIN 500MG IV DAILY, ASCORBIC ACID 1500MG IV Q6H, ALBUTEROL NEBS QID, PULMICORT NEBS BID, SOLU-MEDROL 80MG IV8H, FLUVOXAMINE 50MG PO BID, CYPROHEPTADINE 8MG PO TID, ZOFRAN 4MG IV Q8H PRN, LOVENOX 85MG SC Q12H, LIPITOR 80MG PO HS, TESSALON PERLES 200MG PO TID, CETIRIZINE 10MG PO DAILY, IVERMECTIN, PEPCID 40MG PO BID, ROBITUSSIN DM 10ML PO QID PRN, HUMULIN R SLIDING SCALE, SINGULAIR 10MG PO HS, PROTONIX 40MG PO BID, THIAMINE 200MG IV BID, AND ZINC SULFATE 220MG PO BID (2) Hypoxia: Status: Acute
[2020-10-12] MEDS: SNACK - Diabetic Appropriate PO SCH (22:53)
[2020-10-13] MEDS: LEVAQUIN PREMIX IV 500 MG 500 MG/100 ML BAG IV SCH (00:52)
[2020-10-13] MEDS: ASCORBIC ACID INJ MULTI-DOSE VIAL 1,500 MG in NS 50 ML IV 50 ML IV SCH ×4 (02:12→22:45)
[2020-10-13] MEDS: VISTARIL PO PRN ×3 (04:08→18:04)
[2020-10-13] MEDS: SOLU-Medrol 125 MG VIAL IVP SCH ×3 (05:13→22:30)
[2020-10-13] MEDS: PERIACTIN TAB 4 MG PO SCH ×3 (05:13→21:25)
[2020-10-13] MEDS: TESSALON PERLES PO SCH ×3 (05:14→21:25)
[2020-10-13 06:38] LABS: BASOPHILS # (AUTO) 0.1 X10^3/uL (0.0-0.1); BASOPHILS % (AUTO) 0.4 % (0.2-1.0); HEMATOCRIT 36.8 % (36.0-47.0); HEMOGLOBIN 12.3 g/dL (12.0-16.0); LYMPHOCYTES # (AUTO) 0.8 X10^3/uL (1.3-2.9); LYMPHOCYTES % (AUTO) 6.4 % (21.0-51.0); MEAN CORPUSCULAR HEMOGLOBIN 31.7 pg (27.0-34.0); MEAN CORPUSCULAR HGB CONC 33.4 g/dL (33.0-35.0); MEAN PLATELET VOLUME 8.9 fL (7.4-11.0); MONOCYTES # (AUTO) 0.7 x10^3/uL (0.3-0.8); MONOCYTES % (AUTO) 5.3 % (0.0-13.0); NEUTROPHILS # (AUTO) 11.4 x10^3/uL (2.2-4.8); NEUTROPHILS % (AUTO) 87.9 % (42.0-75.0); PLATELET COUNT 305 X10^3/uL (150.0-450.0); RED BLOOD COUNT 3.87 X10^6/uL (3.5-5.4); RED CELL DISTRIBUTION WIDTH 13.1 % (11.6-16.5); WHITE BLOOD COUNT 12.9 X10^3/uL (3.6-10.0)
--- NOTE | 2020-10-13 06:55 | RAD ---
HISTORYCOVID-19 pneumoniaSTUDYPortable AP [id number] size is similar. There is further interval progression in bilateral confluent airspace disease, right slightly greater than left. No definite pleural fluid or extrapulmonary air complication identified.IMPRESSIONAdditional interval increase in bilateral pneumonia.Electronically signed by: ROSA HSU (Oct 13, 2020 06:53:55)
[2020-10-13 06:57] LABS: ALANINE AMINOTRANSFERASE 70 Units/L (12-78); ALBUMIN 2.3 g/dL (3.4-5.0); ALKALINE PHOSPHATASE 118 Units/L (46-116); ASPARTATE AMINO TRANSFERASE 60 Units/L (15-37); BLOOD UREA NITROGEN 19 mg/dL (7-18); CALCIUM 7.9 mg/dL (8.5-10.1); CARBON DIOXIDE 28.5 mmol/L (21-32); CHLORIDE 108 mmol/L (98-107); COR CA(FOR HYPOALB) 9.3 mg/dL (8.5-10.1); COR NA(FOR HYPERGLY) 146 mmol/L (136-145); CREATININE 0.86 mg/dL (0.55-1.02); SODIUM 144 mmol/L (136-145); TOTAL PROTEIN 6.2 g/dL (6.4-8.2); eGFR NON BLACK RACES > 60 (>60)
[2020-10-13] MEDS: ZOFRAN INJ 4 MG VIAL IVP PRN (07:36)
[2020-10-13] MEDS: PULMICORT NEB TX 0.5 MG NEB SCH ×2 (10:00→21:02)
[2020-10-13] MEDS: BROVANA IN SCH ×2 (10:00→21:02)
[2020-10-13] MEDS: XANAX PO PRN ×2 (10:30→21:20)
[2020-10-13] MEDS: FLUVOXAMINE MALEATE PO SCH ×2 (12:13→21:25)
[2020-10-13] MEDS: PROTONIX TAB 40 MG PO SCH ×2 (12:13→21:25)
[2020-10-13] MEDS: PEPCID TAB 40 MG PO SCH ×2 (12:14→21:25)
[2020-10-13] MEDS: VITAMIN D3 125 mcg (5,000 UNITS) PO SCH (12:14)
[2020-10-13] MEDS: ZINC SULFATE PO SCH (12:14)
[2020-10-13] MEDS: ZyrTEC TAB 10 MG PO SCH (12:14)
[2020-10-13] MEDS: THIAMINE HCL INJ IVP SCH ×2 (12:15→22:35)
[2020-10-13] MEDS: LOVENOX INJ 80 MG SYR SC SCH ×2 (12:16→22:45)
[2020-10-13] MEDS: NS 1000 ML 1,000 ML IV SCH (12:16)
[2020-10-13] MEDS: ACCUNEB 1.25 MG NEBULE NEB SCH ×3 (14:45→21:02)
--- NOTE | 2020-10-13 18:36 | PCM.PROG ---
Progress Note Progress Note for Day of Date of Exam: 10/13/20 Subjective Subjective: PT IS A 55 YEAR OLD FEMALE ADMITTED FOR TREATMENT OF COVID PNEUMONIA AND HYPOXIA. SHE RECEIVED [facility]-COV INFUSION IN [place], [place] ON 10/05/20. THIS MORNING PATIENT APPEARS TO BE FATIGUED AND MORE SHORT OF BREATH COMPARED TO YESTERDAY. SHE IS CURRENTLY UTILIZING HEATED HIGH FLOW OXYGEN WITH FIO2 AT 90%. ON EXAMINATION, HEART IS REGULAR IN RATE AND RHYTHM. BILATERAL LUNGS ARE NOTED WITH WHEEZING THROUGHOUT. ABDOMEN IS ROUND, SOFT, AND NON-TENDER WITH NORMAL BOWEL SOUNDS NOTED IN ALL QUADRANTS. LABS/IMAGING: WBC 12.9, HGB 12.3, PLT 305, NA 144, K 3.4, CREATININE 0.86, GLUCOSE 188, BLOOD CULTURES NGTD. A CHEST XRAY WAS OBTAINED AND REVEALED: There is further interval progression in bilateral confluent airspace disease, right slightly greater than left. SHE IS CURRENTLY RECEIVING NS AT 80 ML/HR, LEVAQUIN 500MG IV DAILY, ASCORBIC ACID 1500MG IV Q6H, ALBUTEROL NEBS QID, PULMICORT NEBS BID, SOLU-MEDROL 80MG IV8H, XANAX 0.5MG PO BID PRN, FLUVOXAMINE 50MG PO BID, CYPROHEPTADINE 8MG PO TID, ZOFRAN 4MG IV Q8H PRN, LOVENOX 85MG SC Q12H, LIPITOR 80MG PO HS, TESSALON PERLES 200MG PO TID, CETIRIZINE 10MG PO DAILY, IVERMECTIN, PEPCID 40MG PO BID, ROBITUSSIN DM 10ML PO QID PRN, HUMULIN R SLIDING SCALE, SINGULAIR 10MG PO HS, PROTONIX 40MG PO BID, THIAMINE 200MG IV BID, AND ZINC SULFATE 220MG PO BID. WILL INCREASE SOLUMEDROL TO 125MG Q6H. REPLETE POTASSIUM PER PROTOCOL. SHE HAS FINISHED A 5 DOSE COURSE OF REMDESIVIR. CONTINUE WITH CURRENT PLAN OF CARE TODAY AND ATTEMPT TO WEAN DOWN OXYGEN TOLERATED. FOLLOW UP WITH AM LABS, CHEST XRAY, ABG, AND CONTINUE TO MONITOR. TIME SPENT ON CLINICAL ASSESSMENT, REVIEWING LABS AND IMAGING, DECISION MAKING, AND DOCUMENTATION GREATER THAN 45 MINUTES. Past Medical Family Social History Past Med/Fam/Surg Hx: No changes since H&P Allergies: Allergies ibuprofen Adverse Reaction (Verified 10/06/20 20:57) abd pain Review of Systems ROS: No change since H&P Vital Signs and I&O's Vital Signs: Temperature 98.1 F Pulse Rate [Apical] 71 Pulse Rate [Left] 81 Pulse Rate 74 Respiratory Rate 23 Blood Pressure [Right Arm] 117/65 Blood Pressure [Left Arm] 147/90 Blood Pressure 157/89 O2 Sat by Pulse Oximetry 83 Intake and Output: Intake & Output 10/10/20 10/11/20 10/12/20 10/13/20 23:59 23:59 23:59 23:59 Intake Total 3129 / 3129 1646 / 1646 2408 / 2408 844 / 844 Balance 3129 / 3129 1646 / 1646 2408 / 2408 844 / 844 Physical Exam Oriented: Normal Eyes: Normal Ear: Normal Nose: Normal Throat: Normal Respiratory: Generalized, Diminished and Rales Cardiovascular: Normal : Normal Auscultation: Bowel Sounds: Normal Tenderness: Normal Skin: Normal Musculoskeletal: Normal Psychiatric: Normal Mood Description: Calm Affect: Normal Speech Pattern: Clear and Appropriate Laboratory and Diagnostics Result Diagrams: 10/13/20 05:45 10/13/20 05:45 Labs: 10/07/20 11:51 Blood Blood Culture - Final 10/07/20 11:49 Blood Blood Culture - Final Laboratory WBC 12.9 X10^3/uL (3.6-10.0) H 10/13/20 05:45 RBC 3.87 X10^6/uL (3.5-5.4) 10/13/20 05:45 Hgb 12.3 g/dL (12.0-16.0) 10/13/20 05:45 Hct 36.8 % (36.0-47.0) 10/13/20 05:45 MCV 95.0 fL (80.0-100.0) 10/13/20 05:45 MCH 31.7 pg (27.0-34.0) 10/13/20 05:45 MCHC 33.4 g/dL (33.0-35.0) 10/13/20 05:45 RDW 13.1 % (11.6-16.5) 10/13/20 05:45 Plt Count 305 X10^3/uL (150.0-450.0) 10/13/20 05:45 Plt Count Comment Adequate (ADEQUATE) 10/11/20 05:24 MPV 8.9 fL (7.4-11.0) 10/13/20 05:45 Neut % (Auto) 87.9 % (42.0-75.0) H 10/13/20 05:45 Lymph % (Auto) 6.4 % (21.0-51.0) L 10/13/20 05:45 [place] % (Auto) 5.3 % (0.0-13.0) 10/13/20 05:45 Eos % (Auto) 0.0 % (0.9-2.9) L 10/13/20 05:45 Baso % (Auto) 0.4 % (0.2-1.0) 10/13/20 05:45 Neut # (Auto) 11.4 x10^3/uL (2.2-4.8) H 10/13/20 05:45 Lymph # (Auto) 0.8 X10^3/uL (1.3-2.9) L 10/13/20 05:45 [place] # (Auto) 0.7 x10^3/uL (0.3-0.8) 10/13/20 05:45 Eos # (Auto) 0.0 x10^3/uL (0.0-0.2) 10/13/20 05:45 Baso # (Auto) 0.1 X10^3/uL (0.0-0.1) 10/13/20 05:45 Absolute Nucleated RBC 0.1 /100WBC 10/13/20 05:45 Total Counted 100 10/11/20 05:24 Neutrophils % (Manual) 91 % (39-76) H 10/11/20 05:24 Lymphocytes % (Manual) 7 % (13-43) L 10/11/20 05:24 Monocytes % (Manual) 2 % (4-9) L 10/11/20 05:24 Plt Morphology Comment Normal (NORMAL) 10/11/20 05:24 RBC Morphology Normal (NORMAL) 10/11/20 05:24 D-Dimer 0.40 ug/ml (0.0-0.57) 10/12/20 05:33 Sample Site Rrad 10/12/20 05:15 ABG pH 7.480 (7.35-7.45) H 10/12/20 05:15 ABG pCO2 36.0 mmHg (35.0-45.0) 10/12/20 05:15 ABG pO2 50.0 mmHg (80.0-100.0) L 10/12/20 05:15 ABG HCO3 26.8 mmol/L (22-26) H 10/12/20 05:15 ABG O2 Saturation 88.0 % (90-100) L 10/12/20 05:15 ABG Base Excess 3.3 mmol/L (-2.0-2.0) H 10/12/20 05:15 Loyd Test Pos 10/12/20 05:15 A-a Gradient 561.0 mmHg 10/12/20 05:15 FiO2 92.0 10/12/20 05:15 Blood Gas Comments Coby well ah 10/12/20 05:15 Sodium 144 mmol/L (136-145) 10/13/20 05:45 Corrected Sodium 146 mmol/L (136-145) H 10/13/20 05:45 Potassium 3.4 mmol/L (3.5-5.1) L 10/13/20 05:45 Chloride 108 mmol/L (98-107) H 10/13/20 05:45 Carbon Dioxide 28.5 mmol/L (21-32) 10/13/20 05:45 BUN 19 mg/dL (7-18) H 10/13/20 05:45 Creatinine 0.86 mg/dL (0.55-1.02) 10/13/20 05:45 Est GFR (MDRD) Af Amer > 60 (>60) 10/13/20 05:45 Est GFR (MDRD) Non-Af > 60 (>60) 10/13/20 05:45 Glucose 188 mg/dL (65-99) H 10/13/20 05:45 Calcium 7.9 mg/dL (8.5-10.1) L 10/13/20 05:45 Corrected Calcium 9.3 mg/dL (8.5-10.1) 10/13/20 05:45 Magnesium 2.5 mg/dL (1.7-2.9) 10/10/20 05:34 Ferritin 531 ng/mL (8-252) H 10/12/20 05:33 Total Bilirubin 1.20 mg/dL (0.2-1.0) H 10/13/20 05:45 AST 60 Units/L (15-37) H 10/13/20 05:45 ALT 70 Units/L (12-78) 10/13/20 05:45 Alkaline Phosphatase 118 Units/L (46-116) H 10/13/20 05:45 Creatine Kinase 180 Units/L (26-192) 10/07/20 11:49 CK-MB (CK-2) < 1.0 ng/mL (0-4.0) 10/07/20 11:49 CK/CKMB % Calc 0.6 % (<4) 10/07/20 11:49 Troponin I < 0.02 ng/mL (0-1.5) 10/07/20 11:49 C-Reactive Protein 9.40 mg/L (0-3.0) H 10/12/20 05:33 B-Natriuretic Peptide 108 pg/mL (0-79) H 10/12/20 05:33 Total Protein 6.2 g/dL (6.4-8.2) L 10/13/20 05:45 Albumin 2.3 g/dL (3.4-5.0) L 10/13/20 05:45 Globulin 3.9 g/dL (2.5-4.5) 10/13/20 05:45 Albumin/Globulin Ratio 0.6 Ratio (1.1-2.1) L 10/13/20 05:45 Plan (1) Pneumonia due to COVID-19 virus: Status: Acute Plan: SUPPLEMENTAL OXYGEN, NS AT 80 ML/HR, LEVAQUIN 500MG IV DAILY, ASCORBIC ACID 1500MG IV Q6H, ALBUTEROL NEBS QID, PULMICORT NEBS BID, SOLU-MEDROL 80MG IV8H, FLUVOXAMINE 50MG PO BID, CYPROHEPTADINE 8MG PO TID, ZOFRAN 4MG IV Q8H PRN, LOVENOX 85MG SC Q12H, LIPITOR 80MG PO HS, TESSALON PERLES 200MG PO TID, CETIRIZINE 10MG PO DAILY, IVERMECTIN, PEPCID 40MG PO BID, ROBITUSSIN DM 10ML PO QID PRN, HUMULIN R SLIDING SCALE, SINGULAIR 10MG PO HS, PROTONIX 40MG PO BID, THIAMINE 200MG IV BID, AND ZINC SULFATE 220MG PO BID (2) Hypoxia: Status: Acute
[2020-10-13 19:19] VITALS: BMI 37.5
[2020-10-13] MEDS: NORCO 5/325 MG TAB PO PRN (21:05)
[2020-10-13] MEDS: SNACK - Diabetic Appropriate PO SCH (21:20)
[2020-10-13] MEDS: LIPITOR TAB 80 MG PO SCH (21:25)
[2020-10-13] MEDS: MELATONIN PO SCH (21:25)
[2020-10-13] MEDS: K-DUR TAB 20 MEQ PO PRN (21:25)
[2020-10-13] MEDS: SINGULAIR TAB 10 MG PO SCH (21:25)
[2020-10-14] MEDS: LEVAQUIN PREMIX IV 500 MG 500 MG/100 ML BAG IV SCH (01:44)
[2020-10-14] MEDS: NS 1000 ML 1,000 ML IV SCH ×2 (01:44→14:57)
[2020-10-14] MEDS: SOLU-Medrol 125 MG VIAL IVP SCH ×4 (04:21→21:15)
[2020-10-14] MEDS: ASCORBIC ACID INJ MULTI-DOSE VIAL 1,500 MG in NS 50 ML IV 50 ML IV SCH ×4 (04:21→21:00)
[2020-10-14 05:17] LABS: BASOPHILS % (AUTO) 0.1 % (0.2-1.0); HEMATOCRIT 34.6 % (36.0-47.0); HEMOGLOBIN 11.9 g/dL (12.0-16.0); LYMPHOCYTES # (AUTO) 0.6 X10^3/uL (1.3-2.9); LYMPHOCYTES % (AUTO) 4.9 % (21.0-51.0); MEAN CORPUSCULAR HEMOGLOBIN 32.2 pg (27.0-34.0); MEAN CORPUSCULAR HGB CONC 34.3 g/dL (33.0-35.0); MEAN CORPUSCULAR VOLUME 93.9 fL (80.0-100.0); MEAN PLATELET VOLUME 8.4 fL (7.4-11.0); MONOCYTES # (AUTO) 0.5 x10^3/uL (0.3-0.8); NEUTROPHILS # (AUTO) 11.8 x10^3/uL (2.2-4.8); PLATELET COUNT 288 X10^3/uL (150.0-450.0); RED BLOOD COUNT 3.68 X10^6/uL (3.5-5.4); RED CELL DISTRIBUTION WIDTH 13.5 % (11.6-16.5)
[2020-10-14] MEDS: VISTARIL PO PRN (05:17)
[2020-10-14 05:28] LABS: ALANINE AMINOTRANSFERASE 84 Units/L (12-78); ALBUMIN 2.1 g/dL (3.4-5.0); ALKALINE PHOSPHATASE 122 Units/L (46-116); ASPARTATE AMINO TRANSFERASE 89 Units/L (15-37); BLOOD UREA NITROGEN 19 mg/dL (7-18); CALCIUM 7.6 mg/dL (8.5-10.1); CARBON DIOXIDE 27.7 mmol/L (21-32); CHLORIDE 106 mmol/L (98-107); COR CA(FOR HYPOALB) 9.1 mg/dL (8.5-10.1); COR NA(FOR HYPERGLY) 143 mmol/L (136-145); CREATININE 0.77 mg/dL (0.55-1.02); SODIUM 141 mmol/L (136-145); TOTAL PROTEIN 5.8 g/dL (6.4-8.2); eGFR NON BLACK RACES > 60 (>60)
[2020-10-14 06:15] LABS: PLATELET MORPHOLOGY COMMENT NORMAL (NORMAL)
[2020-10-14] MEDS: PERIACTIN TAB 4 MG PO SCH ×4 (07:29→21:30)
[2020-10-14] MEDS: TESSALON PERLES PO SCH ×3 (07:30→21:30)
--- NOTE | 2020-10-14 07:38 | RAD ---
CHEST, 1 VIEWHISTORY: PNEUMONIA, COVIDStudy: Single view of the chest.Comparison:October 13, 2020Findings:The cardiomediastinal silhouette is normal.Possible mild improvement of patient's bilateral airspace opacities. Osseous structures demonstrate no acute abnormality.IMPRESSION:1. Possible mild improvement when compared to prior.Electronically signed by: SILVIA WARD (Oct 14, 2020 07:36:17)
[2020-10-14] MEDS: ACCUNEB 1.25 MG NEBULE NEB SCH ×3 (09:18→20:55)
[2020-10-14] MEDS: BROVANA IN SCH ×2 (09:18→20:55)
[2020-10-14] MEDS: PULMICORT NEB TX 0.5 MG NEB SCH ×2 (09:18→20:55)
[2020-10-14] MEDS: FLUVOXAMINE MALEATE PO SCH ×2 (09:21→21:30)
[2020-10-14] MEDS: THIAMINE HCL INJ IVP SCH ×2 (09:21→21:45)
[2020-10-14] MEDS: PROTONIX TAB 40 MG PO SCH ×2 (09:21→21:30)
[2020-10-14] MEDS: PEPCID TAB 40 MG PO SCH ×2 (09:21→21:30)
[2020-10-14] MEDS: VITAMIN D3 125 mcg (5,000 UNITS) PO SCH (09:22)
[2020-10-14] MEDS: ZINC SULFATE PO SCH (09:22)
[2020-10-14] MEDS: ZyrTEC TAB 10 MG PO SCH (09:22)
[2020-10-14] MEDS: LOVENOX INJ 80 MG SYR SC SCH ×2 (09:22→21:15)
[2020-10-14] MEDS: HumuLIN R SUBCUT PRN ×3 (12:02→21:15)
--- NOTE | 2020-10-14 13:03 | PCM.PROG ---
Progress Note Progress Note for Day of Date of Exam: 10/14/20 Subjective Subjective: PT IS A 55 YEAR OLD FEMALE ADMITTED FOR TREATMENT OF COVID PNEUMONIA AND HYPOXIA. SHE RECEIVED [facility]OV INFUSION IN [place], [place] ON 10/05/20. THIS MORNING PATIENT IS CURRENTLY UTILIZING BIPAP WITH FIO2 AT 100%. NURSING REPORTS AT TIMES SHE IS ABLE TO TOLERATED HEATED HIGH FLOW OXYGEN. DAUGHTER IN THE ROOM HAS HELPED WITH PATIENT'S ANXIETY. ON EXAMINATION, HEART IS REGULAR IN RATE AND RHYTHM. BILATERAL LUNGS ARE NOTED WITH WHEEZING THROUGHOUT. ABDOMEN IS ROUND, SOFT, AND NON-TENDER WITH NORMAL BOWEL SOUNDS NOTED IN ALL QUADRANTS. LABS/IMAGING: WBC 13, HGB 11.9, PLT 288, NA 141, K 3.8, CREATININE 0.77, GLUCOSE 199, BLOOD CULTURES NGTD. A CHEST XRAY WAS OBTAINED AND REVEALED: 1. Possible mild improvement when compared to prior. SHE IS CURRENTLY RECEIVING NS AT 80 ML/HR, LEVAQUIN 500MG IV DAILY, ASCORBIC ACID 1500MG IV Q6H, ALBUTEROL NEBS QID, PULMICORT NEBS BID, SOLU-MEDROL 125MG IV6H, XANAX 0.5MG PO BID PRN, IV MORPHINE 2MG Q6H PRN, FLUVOXAMINE 50MG PO BID, CYPROHEPTADINE 8MG PO TID, ZOFRAN 4MG IV Q8H PRN, LOVENOX 85MG SC Q12H, LIPITOR 80MG PO HS, TESSALON PERLES 200MG PO TID, CETIRIZINE 10MG PO DAILY, IVERMECTIN, PEPCID 40MG PO BID, ROBITUSSIN DM 10ML PO QID PRN, HUMULIN R SLIDING SCALE, SINGULAIR 10MG PO HS, PROTONIX 40MG PO BID, THIAMINE 200MG IV BID, AND ZINC SULFATE 220MG PO BID. SHE HAS FINISHED A 5 DOSE COURSE OF REMDESIVIR. WILL ADD IV DOXYCYCLINE 100MG BID. CONTINUE WITH CURRENT PLAN OF CARE TODAY AND ATTEMPT TO WEAN DOWN OXYGEN TOLERATED. FOLLOW UP WITH AM LABS, CHEST XRAY, ABG, AND CONTINUE TO MONITOR. CRITICA CARE TIME SPENT ON CLINICAL ASSESSMENT, REVIEWING LABS AND IMAGING, DECISION MAKING, AND DOCUMENTATION GREATER THAN 45 MINUTES. Past Medical Family Social History Past Med/Fam/Surg Hx: No changes since H&P Allergies: Allergies ibuprofen Adverse Reaction (Verified 10/06/20 20:57) abd pain Review of Systems ROS: No change since H&P Vital Signs and I&O's Vital Signs: Temperature 97.7 F Pulse Rate [Apical] 71 Pulse Rate [Left] 81 Pulse Rate 74 Respiratory Rate 30 Blood Pressure [Right Arm] 117/65 Blood Pressure [Left Arm] 147/90 Blood Pressure 149/90 O2 Sat by Pulse Oximetry 94 Intake and Output: Intake & Output 10/11/20 10/12/20 10/13/20 10/14/20 23:59 23:59 23:59 23:59 Intake Total 1646 / 1646 2408 / 2408 1494 / 1494 380 / 380 Balance 1646 / 1646 2408 / 2408 1494 / 1494 380 / 380 Physical Exam Oriented: Normal Eyes: Normal Ear: Normal Nose: Normal Throat: Normal Respiratory: Generalized, Diminished and Rales Cardiovascular: Normal : Normal Auscultation: Bowel Sounds: Normal Tenderness: Normal Skin: Normal Musculoskeletal: Normal Psychiatric: Normal Mood Description: Anxious Affect: Anxious Speech Pattern: Clear and Appropriate Laboratory and Diagnostics Result Diagrams: 10/14/20 04:45 10/14/20 04:45 Labs: 10/07/20 11:51 Blood Blood Culture - Final 10/07/20 11:49 Blood Blood Culture - Final Laboratory WBC 13.0 X10^3/uL (3.6-10.0) H 10/14/20 04:45 RBC 3.68 X10^6/uL (3.5-5.4) 10/14/20 04:45 Hgb 11.9 g/dL (12.0-16.0) L 10/14/20 04:45 Hct 34.6 % (36.0-47.0) L 10/14/20 04:45 MCV 93.9 fL (80.0-100.0) 10/14/20 04:45 MCH 32.2 pg (27.0-34.0) 10/14/20 04:45 MCHC 34.3 g/dL (33.0-35.0) 10/14/20 04:45 RDW 13.5 % (11.6-16.5) 10/14/20 04:45 Plt Count 288 X10^3/uL (150.0-450.0) 10/14/20 04:45 Plt Count Comment Adequate (ADEQUATE) 10/14/20 04:45 MPV 8.4 fL (7.4-11.0) 10/14/20 04:45 Neut % (Auto) 91.0 % (42.0-75.0) H 10/14/20 04:45 Lymph % (Auto) 4.9 % (21.0-51.0) L 10/14/20 04:45 [place] % (Auto) 4.0 % (0.0-13.0) 10/14/20 04:45 Eos % (Auto) 0.0 % (0.9-2.9) L 10/14/20 04:45 Baso % (Auto) 0.1 % (0.2-1.0) L 10/14/20 04:45 Neut # (Auto) 11.8 x10^3/uL (2.2-4.8) H 10/14/20 04:45 Lymph # (Auto) 0.6 X10^3/uL (1.3-2.9) L 10/14/20 04:45 [place] # (Auto) 0.5 x10^3/uL (0.3-0.8) 10/14/20 04:45 Eos # (Auto) 0.0 x10^3/uL (0.0-0.2) 10/14/20 04:45 Baso # (Auto) 0.0 X10^3/uL (0.0-0.1) 10/14/20 04:45 Absolute Nucleated RBC 0.1 /100WBC 10/14/20 04:45 Total Counted 100 10/14/20 04:45 Neutrophils % (Manual) 96 % (39-76) H 10/14/20 04:45 Lymphocytes % (Manual) 1 % (13-43) L 10/14/20 04:45 Monocytes % (Manual) 3 % (4-9) L 10/14/20 04:45 Plt Morphology Comment Normal (NORMAL) 10/14/20 04:45 RBC Morphology Normal (NORMAL) 10/14/20 04:45 D-Dimer 0.40 ug/ml (0.0-0.57) 10/12/20 05:33 Sample Site Rrad 10/12/20 05:15 ABG pH 7.480 (7.35-7.45) H 10/12/20 05:15 ABG pCO2 36.0 mmHg (35.0-45.0) 10/12/20 05:15 ABG pO2 50.0 mmHg (80.0-100.0) L 10/12/20 05:15 ABG HCO3 26.8 mmol/L (22-26) H 10/12/20 05:15 ABG O2 Saturation 88.0 % (90-100) L 10/12/20 05:15 ABG Base Excess 3.3 mmol/L (-2.0-2.0) H 10/12/20 05:15 Loyd Test Pos 10/12/20 05:15 A-a Gradient 561.0 mmHg 10/12/20 05:15 FiO2 92.0 10/12/20 05:15 Blood Gas Comments Coby well ah 10/12/20 05:15 Sodium 141 mmol/L (136-145) 10/14/20 04:45 Corrected Sodium 143 mmol/L (136-145) 10/14/20 04:45 Potassium 3.8 mmol/L (3.5-5.1) 10/14/20 04:45 Chloride 106 mmol/L (98-107) 10/14/20 04:45 Carbon Dioxide 27.7 mmol/L (21-32) 10/14/20 04:45 BUN 19 mg/dL (7-18) H 10/14/20 04:45 Creatinine 0.77 mg/dL (0.55-1.02) 10/14/20 04:45 Est GFR (MDRD) Af Amer > 60 (>60) 10/14/20 04:45 Est GFR (MDRD) Non-Af > 60 (>60) 10/14/20 04:45 Glucose 199 mg/dL (65-99) H 10/14/20 04:45 POC Glucose (mg/dL) 244 mg/dL (65-99) H 10/14/20 11:49 Calcium 7.6 mg/dL (8.5-10.1) L 10/14/20 04:45 Corrected Calcium 9.1 mg/dL (8.5-10.1) 10/14/20 04:45 Magnesium 2.5 mg/dL (1.7-2.9) 10/10/20 05:34 Ferritin 531 ng/mL (8-252) H 10/12/20 05:33 Total Bilirubin 1.30 mg/dL (0.2-1.0) H 10/14/20 04:45 AST 89 Units/L (15-37) H 10/14/20 04:45 ALT 84 Units/L (12-78) H 10/14/20 04:45 Alkaline Phosphatase 122 Units/L (46-116) H 10/14/20 04:45 Creatine Kinase 180 Units/L (26-192) 10/07/20 11:49 CK-MB (CK-2) < 1.0 ng/mL (0-4.0) 10/07/20 11:49 CK/CKMB % Calc 0.6 % (<4) 10/07/20 11:49 Troponin I < 0.02 ng/mL (0-1.5) 10/07/20 11:49 C-Reactive Protein 9.40 mg/L (0-3.0) H 10/12/20 05:33 B-Natriuretic Peptide 108 pg/mL (0-79) H 10/12/20 05:33 Total Protein 5.8 g/dL (6.4-8.2) L 10/14/20 04:45 Albumin 2.1 g/dL (3.4-5.0) L 10/14/20 04:45 Globulin 3.7 g/dL (2.5-4.5) 10/14/20 04:45 Albumin/Globulin Ratio 0.6 Ratio (1.1-2.1) L 10/14/20 04:45 Plan (1) Pneumonia due to COVID-19 virus: Status: Acute Plan: SUPPLEMENTAL OXYGEN, NS AT 80 ML/HR, LEVAQUIN 500MG IV DAILY, ASCORBIC ACID 1500MG IV Q6H, ALBUTEROL NEBS QID, PULMICORT NEBS BID, SOLU-MEDROL 80MG IV8H, FLUVOXAMINE 50MG PO BID, CYPROHEPTADINE 8MG PO TID, ZOFRAN 4MG IV Q8H PRN, LOVENOX 85MG SC Q12H, LIPITOR 80MG PO HS, TESSALON PERLES 200MG PO TID, CET IRIZINE 10MG PO DAILY, IVERMECTIN, PEPCID 40MG PO BID, ROBITUSSIN DM 10ML PO QID PRN, HUMULIN R SLIDING SCALE, SINGULAIR 10MG PO HS, PROTONIX 40MG PO BID, THIAMINE 200MG IV BID, AND ZINC SULFATE 220MG PO BID (2) Hypoxia: Status: Acute
[2020-10-14] MEDS: VIBRAMYCIN 100 MG in D5W 250 ML IV 250 ML IV SCH ×2 (14:00→22:49)
[2020-10-14] MEDS: XANAX PO PRN (15:51)
[2020-10-14] MEDS: SNACK - Diabetic Appropriate PO SCH (20:46)
[2020-10-14] MEDS: SINGULAIR TAB 10 MG PO SCH (21:30)
[2020-10-14] MEDS: MELATONIN PO SCH (21:30)
[2020-10-14] MEDS: MORPHINE SULFATE INJ 2 MG INJ IVP PRN (22:03)
[2020-10-14] MEDS: LIPITOR TAB 80 MG PO SCH (22:10)
[2020-10-15] MEDS: LEVAQUIN PREMIX IV 500 MG 500 MG/100 ML BAG IV SCH (02:03)
[2020-10-15] MEDS: MORPHINE SULFATE INJ 2 MG INJ IVP PRN ×3 (02:04→21:45)
[2020-10-15] MEDS: XANAX PO PRN (03:12)
[2020-10-15] MEDS: ASCORBIC ACID INJ MULTI-DOSE VIAL 1,500 MG in NS 50 ML IV 50 ML IV SCH ×4 (04:00→20:18)
[2020-10-15] MEDS: SOLU-Medrol 125 MG VIAL IVP SCH ×4 (04:00→20:21)
[2020-10-15] MEDS: NS 1000 ML 1,000 ML IV SCH ×2 (04:22→16:07)
[2020-10-15 05:21] LABS: BASOPHILS % (AUTO) 0.1 % (0.2-1.0); HEMATOCRIT 34.8 % (36.0-47.0); HEMOGLOBIN 11.8 g/dL (12.0-16.0); LYMPHOCYTES # (AUTO) 0.6 X10^3/uL (1.3-2.9); LYMPHOCYTES % (AUTO) 4.8 % (21.0-51.0); MEAN CORPUSCULAR HEMOGLOBIN 31.8 pg (27.0-34.0); MEAN CORPUSCULAR HGB CONC 33.8 g/dL (33.0-35.0); MEAN CORPUSCULAR VOLUME 94.1 fL (80.0-100.0); MEAN PLATELET VOLUME 8.7 fL (7.4-11.0); MONOCYTES # (AUTO) 0.6 x10^3/uL (0.3-0.8); MONOCYTES % (AUTO) 4.6 % (0.0-13.0); NEUTROPHILS # (AUTO) 11.4 x10^3/uL (2.2-4.8); NEUTROPHILS % (AUTO) 90.5 % (42.0-75.0); PLATELET COUNT 287 X10^3/uL (150.0-450.0); RED CELL DISTRIBUTION WIDTH 13.6 % (11.6-16.5); WHITE BLOOD COUNT 12.6 X10^3/uL (3.6-10.0)
[2020-10-15 05:47] LABS: ALANINE AMINOTRANSFERASE 65 Units/L (12-78); ALBUMIN 2.2 g/dL (3.4-5.0); ALKALINE PHOSPHATASE 115 Units/L (46-116); ASPARTATE AMINO TRANSFERASE 52 Units/L (15-37); BLOOD UREA NITROGEN 16 mg/dL (7-18); CARBON DIOXIDE 27.9 mmol/L (21-32); CHLORIDE 103 mmol/L (98-107); COR CA(FOR HYPOALB) 9.4 mg/dL (8.5-10.1); COR NA(FOR HYPERGLY) 142 mmol/L (136-145); SODIUM 139 mmol/L (136-145); eGFR NON BLACK RACES > 60 (>60)
[2020-10-15 05:47] LABS: ABG BASE EXCESS 3.5 mmol/L (-2.0-2.0); ABG HCO3 27.8 mmol/L (22-26)
[2020-10-15 05:48] LABS: ABG ALLEN TEST POS
[2020-10-15] MEDS: ACCUNEB 1.25 MG NEBULE NEB SCH ×2 (06:00→21:10)
[2020-10-15] MEDS: PERIACTIN TAB 4 MG PO SCH ×3 (06:19→21:41)
[2020-10-15] MEDS: TESSALON PERLES PO SCH ×3 (06:19→21:41)
[2020-10-15] MEDS: HumuLIN R SUBCUT PRN ×4 (06:20→20:19)
[2020-10-15 06:24] LABS: PLATELET MORPHOLOGY COMMENT NORMAL (NORMAL)
[2020-10-15] MEDS: VIBRAMYCIN 100 MG in D5W 250 ML IV 250 ML IV SCH ×2 (08:48→22:04)
[2020-10-15] MEDS: LOVENOX INJ 80 MG SYR SC SCH ×2 (08:49→20:18)
[2020-10-15] MEDS: THIAMINE HCL INJ IVP SCH ×2 (08:49→20:21)
[2020-10-15] MEDS: FLUVOXAMINE MALEATE PO SCH ×2 (08:49→20:18)
[2020-10-15] MEDS: PROTONIX TAB 40 MG PO SCH ×2 (08:49→20:20)
[2020-10-15] MEDS: PEPCID TAB 40 MG PO SCH ×2 (08:49→20:20)
[2020-10-15] MEDS: ZINC SULFATE PO SCH (08:50)
[2020-10-15] MEDS: VITAMIN D3 125 mcg (5,000 UNITS) PO SCH (08:50)
[2020-10-15] MEDS: ZyrTEC TAB 10 MG PO SCH (08:50)
[2020-10-15] MEDS: POTASSIUM CHLORIDE LIQ 20 MEQ UDC PO PRN (08:50)
--- NOTE | 2020-10-15 11:13 | RAD ---
HISTORYFollow up pneumoniaSTUDYPortable AP [id number] heart size. Persistent but improving bilateral airspace disease especially involving the lower lobes. No new abnormality noted. There is no evidence for pneumothorax.IMPRESSIONInterval improvement in bilateral pneumonia.Electronically signed by: ROSA HSU (Oct 15, 2020 11:11:36)
--- NOTE | 2020-10-15 12:07 | PCM.PROG ---
Progress Note Progress Note for Day of Date of Exam: 10/15/20 Subjective Subjective: PT IS A 55 YEAR OLD FEMALE ADMITTED FOR TREATMENT OF COVID PNEUMONIA AND HYPOXIA. SHE RECEIVED [facility]OV INFUSION IN [place], [place] ON 10/05/20. THIS MORNING PATIENT IS SITTING IN RECLINER AT BEDSIDE. SHE HAD MORE ANXIETY AND HAD DIFFICULTY SLEEPING AT NIGHT. SHE IS CURRENTLY UTILIZING HEATED HIGH FLOW OXYGEN WITH FIO2 AT 87% AND BIPAP AT NIGHT. ON EXAMINATION, HEART IS REGULAR IN RATE AND RHYTHM. BILATERAL LUNGS ARE NOTED WITH RALES THROUGHOUT. ABDOMEN IS ROUND, SOFT, AND NON-TENDER WITH NORMAL BOWEL SOUNDS NOTED IN ALL QUADRANTS. LABS/IMAGING: WBC 12.6, HGB 11.8, PLT 287, NA 142, K 3.2, CREATININE 0.80, GLUCOSE 210, CRP 14, ABG: PH 7.45, PCO2 40, PO2 54, HCO3 27, O2SAT 89%, FIO2 1 00%. BLOOD CULTURES NGTD. A CHEST XRAY WAS OBTAINED AND REVEALED: Interval improvement in bilateral pneumonia. SHE IS CURRENTLY RECEIVING NS AT 80 ML/HR, LEVAQUIN 500MG IV DAILY, IV DOXYCYCLINE 100MG BID, ASCORBIC ACID 1500MG IV Q6H, ALBUTEROL NEBS QID, PULMICORT NEBS BID, SOLU-MEDROL 125MG IV6H, XANAX 0.5MG PO BID PRN, IV MORPHINE 2MG Q6H PRN, FLUVOXAMINE 50MG PO BID, CYPROHEPTADINE 8MG PO TID, ZOFRAN 4MG IV Q8H PRN, LOVENOX 85MG SC Q12H, LIPITOR 80MG PO HS, TESSALON PERLES 200MG PO TID, CETIRIZINE 10MG PO DAILY, IVERMECTIN, PEPCID 40MG PO BID, ROBITUSSIN DM 10ML PO QID PRN, HUMULIN R SLIDING SCALE, SINGULAIR 10MG PO HS, PROTONIX 40MG PO BID, THIAMINE 200MG IV BID, AND ZINC SULFATE 220MG PO BID. SHE HAS FINISHED A 5 DOSE COURSE OF REMDESIVIR. WILL CHANGE XANAX TO TID DOSING TO HELP WITH ANXIETY AND ADD RESTORIL AT NIGHT TO HELP WITH SLEEP. ATTEMPT TO WEAN DOWN OXYGEN TOLERATED. FOLLOW UP WITH AM LABS, CHEST XRAY, ABG, AND CONTINUE TO MONITOR. TIME SPENT ON CLINICAL ASSESSMENT, REVIEWING LABS AND IMAGING, DECISION MAKING, AND DOCUMENTATION GREATER THAN 45 MINUTES. Past Medical Family Social History Past Med/Fam/Surg Hx: No changes since H&P Allergies: Allergies ibuprofen Adverse Reaction (Verified 10/06/20 20:57) abd pain Review of Systems ROS: No change since H&P Vital Signs and I&O's Vital Signs: Temperature 97.8 F Pulse Rate [Apical] 71 Pulse Rate [Left] 81 Pulse Rate 72 Respiratory Rate 22 Blood Pressure [Right Arm] 117/65 Blood Pressure [Left Arm] 147/90 Blood Pressure 151/82 O2 Sat by Pulse Oximetry 90 Intake and Output: Intake & Output 10/12/20 10/13/20 10/14/20 10/15/20 23:59 23:59 23:59 23:59 Intake Total 2408 / 2408 1494 / 1494 2245 / 2245 615 / 615 Balance 2408 / 2408 1494 / 1494 2245 / 2245 615 / 615 Physical Exam Oriented: Normal Eyes: Normal Ear: Normal Nose: Normal Throat: Normal Respiratory: Generalized, Diminished and Rales Cardiovascular: Normal : Normal Auscultation: Bowel Sounds: Normal Tenderness: Normal Skin: Normal Musculoskeletal: Normal Psychiatric: Normal Mood Description: Anxious Affect: Anxious Speech Pattern: Clear and Appropriate Laboratory and Diagnostics Result Diagrams: 10/15/20 04:08 10/15/20 04:08 Labs: 10/07/20 11:51 Blood Blood Culture - Final 10/07/20 11:49 Blood Blood Culture - Final Laboratory WBC 12.6 X10^3/uL (3.6-10.0) H 10/15/20 04:08 RBC 3.70 X10^6/uL (3.5-5.4) 10/15/20 04:08 Hgb 11.8 g/dL (12.0-16.0) L 10/15/20 04:08 Hct 34.8 % (36.0-47.0) L 10/15/20 04:08 MCV 94.1 fL (80.0-100.0) 10/15/20 04:08 MCH 31.8 pg (27.0-34.0) 10/15/20 04:08 MCHC 33.8 g/dL (33.0-35.0) 10/15/20 04:08 RDW 13.6 % (11.6-16.5) 10/15/20 04:08 Plt Count 287 X10^3/uL (150.0-450.0) 10/15/20 04:08 Plt Count Comment Adequate (ADEQUATE) 10/15/20 04:08 MPV 8.7 fL (7.4-11.0) 10/15/20 04:08 Neut % (Auto) 90.5 % (42.0-75.0) H 10/15/20 04:08 Lymph % (Auto) 4.8 % (21.0-51.0) L 10/15/20 04:08 [place] % (Auto) 4.6 % (0.0-13.0) 10/15/20 04:08 Eos % (Auto) 0.0 % (0.9-2.9) L 10/15/20 04:08 Baso % (Auto) 0.1 % (0.2-1.0) L 10/15/20 04:08 Neut # (Auto) 11.4 x10^3/uL (2.2-4.8) H 10/15/20 04:08 Lymph # (Auto) 0.6 X10^3/uL (1.3-2.9) L 10/15/20 04:08 [place] # (Auto) 0.6 x10^3/uL (0.3-0.8) 10/15/20 04:08 Eos # (Auto) 0.0 x10^3/uL (0.0-0.2) 10/15/20 04:08 Baso # (Auto) 0.0 X10^3/uL (0.0-0.1) 10/15/20 04:08 Absolute Nucleated RBC 0.1 /100WBC 10/15/20 04:08 Total Counted 100 10/15/20 04:08 Neutrophils % (Manual) 99 % (39-76) H 10/15/20 04:08 Lymphocytes % (Manual) 1 % (13-43) L 10/15/20 04:08 Monocytes % (Manual) 3 % (4-9) L 10/14/20 04:45 Plt Morphology Comment Normal (NORMAL) 10/15/20 04:08 RBC Morphology Normal (NORMAL) 10/15/20 04:08 D-Dimer 0.40 ug/ml (0.0-0.57) 10/12/20 05:33 Sample Site Lrad 10/15/20 05:45 ABG pH 7.450 (7.35-7.45) 10/15/20 05:45 ABG pCO2 40.0 mmHg (35.0-45.0) 10/15/20 05:45 ABG pO2 54.0 mmHg (80.0-100.0) L 10/15/20 05:45 ABG HCO3 27.8 mmol/L (22-26) H 10/15/20 05:45 ABG O2 Saturation 89.0 % (90-100) L 10/15/20 05:45 ABG Base Excess 3.5 mmol/L (-2.0-2.0) H 10/15/20 05:45 Loyd Test Pos 10/15/20 05:45 A-a Gradient 609.0 mmHg 10/15/20 05:45 FiO2 100.0 10/15/20 05:45 Blood Gas Comments Coby well-mtf 10/15/20 05:45 Sodium 139 mmol/L (136-145) 10/15/20 04:08 Corrected Sodium 142 mmol/L (136-145) 10/15/20 04:08 Potassium 3.2 mmol/L (3.5-5.1) L 10/15/20 04:08 Chloride 103 mmol/L (98-107) 10/15/20 04:08 Carbon Dioxide 27.9 mmol/L (21-32) 10/15/20 04:08 BUN 16 mg/dL (7-18) 10/15/20 04:08 Creatinine 0.80 mg/dL (0.55-1.02) 10/15/20 04:08 Est GFR (MDRD) Af Amer > 60 (>60) 10/15/20 04:08 Est GFR (MDRD) Non-Af > 60 (>60) 10/15/20 04:08 Glucose 210 mg/dL (65-99) H 10/15/20 04:08 POC Glucose (mg/dL) 263 mg/dL (65-99) H 10/15/20 11:31 Calcium 8.0 mg/dL (8.5-10.1) L 10/15/20 04:08 Corrected Calcium 9.4 mg/dL (8.5-10.1) 10/15/20 04:08 Magnesium 2.5 mg/dL (1.7-2.9) 10/10/20 05:34 Ferritin 531 ng/mL (8-252) H 10/12/20 05:33 Total Bilirubin 1.10 mg/dL (0.2-1.0) H 10/15/20 04:08 AST 52 Units/L (15-37) H 10/15/20 04:08 ALT 65 Units/L (12-78) 10/15/20 04:08 Alkaline Phosphatase 115 Units/L (46-116) 10/15/20 04:08 Creatine Kinase 180 Units/L (26-192) 10/07/20 11:49 CK-MB (CK-2) < 1.0 ng/mL (0-4.0) 10/07/20 11:49 CK/CKMB % Calc 0.6 % (<4) 10/07/20 11:49 Troponin I < 0.02 ng/mL (0-1.5) 10/07/20 11:49 C-Reactive Protein 14.20 mg/L (0-3.0) H 10/15/20 04:08 B-Natriuretic Peptide 108 pg/mL (0-79) H 10/12/20 05:33 Total Protein 6.0 g/dL (6.4-8.2) L 10/15/20 04:08 Albumin 2.2 g/dL (3.4-5.0) L 10/15/20 04:08 Globulin 3.8 g/dL (2.5-4.5) 10/15/20 04:08 Albumin/Globulin Ratio 0.6 Ratio (1.1-2.1) L 10/15/20 04:08 Plan (1) Pneumonia due to COVID-19 virus: Status: Acute Plan: SUPPLEMENTAL OXYGEN, NS AT 80 ML/HR, LEVAQUIN 500MG IV DAILY, ASCORBIC ACID 1500MG IV Q6H, ALBUTEROL NEBS QID, PULMICORT NEBS BID, SOLU-MEDROL 80MG IV8H, FLUVOXAMINE 50MG PO BID, CYPROHEPTADINE 8MG PO TID, ZOFRAN 4MG IV Q8H PRN, LOVENOX 85MG SC Q12H, LIPITOR 80MG PO HS, TESSALON PERLES 200MG PO TID, CETIRIZINE 10MG PO DAILY, IVERMECTIN, PEPCID 40MG PO BID, ROBITUSSIN DM 10ML PO QID PRN, HUMULIN R SLIDING SCALE, SINGULAIR 10MG PO HS, PROTONIX 40MG PO BID, THIAMINE 200MG IV BID, AND ZINC SULFATE 220MG PO BID (2) Hypoxia: Status: Acute
[2020-10-15] MEDS: XANAX PO SCH ×2 (16:06→20:00)
[2020-10-15] MEDS: SNACK - Diabetic Appropriate PO SCH (20:18)
[2020-10-15] MEDS: MELATONIN PO SCH (20:19)
[2020-10-15] MEDS: SINGULAIR TAB 10 MG PO SCH (20:21)
[2020-10-15] MEDS: RESTORIL CAP 15 MG PO SCH (21:00)
[2020-10-15] MEDS: BROVANA IN SCH (21:10)
[2020-10-15] MEDS: PULMICORT NEB TX 0.5 MG NEB SCH (21:10)
[2020-10-15] MEDS: LIPITOR TAB 80 MG PO SCH (21:41)
[2020-10-16] MEDS: LEVAQUIN PREMIX IV 500 MG 500 MG/100 ML BAG IV SCH (01:07)
[2020-10-16] MEDS: MORPHINE SULFATE INJ 2 MG INJ IVP PRN ×2 (01:54→13:15)
[2020-10-16] MEDS: NS 1000 ML 1,000 ML IV SCH ×2 (03:51→17:48)
[2020-10-16] MEDS: ASCORBIC ACID INJ MULTI-DOSE VIAL 1,500 MG in NS 50 ML IV 50 ML IV SCH ×4 (03:51→20:28)
[2020-10-16] MEDS: SOLU-Medrol 125 MG VIAL IVP SCH ×4 (04:35→20:27)
[2020-10-16 05:17] LABS: BASOPHILS % (AUTO) 0.1 % (0.2-1.0); HEMATOCRIT 35.3 % (36.0-47.0); LYMPHOCYTES # (AUTO) 0.6 X10^3/uL (1.3-2.9); LYMPHOCYTES % (AUTO) 3.7 % (21.0-51.0); MEAN CORPUSCULAR HEMOGLOBIN 32.1 pg (27.0-34.0); MEAN CORPUSCULAR HGB CONC 33.9 g/dL (33.0-35.0); MEAN CORPUSCULAR VOLUME 94.7 fL (80.0-100.0); MEAN PLATELET VOLUME 8.8 fL (7.4-11.0); MONOCYTES # (AUTO) 0.7 x10^3/uL (0.3-0.8); MONOCYTES % (AUTO) 4.8 % (0.0-13.0); NEUTROPHILS # (AUTO) 13.5 x10^3/uL (2.2-4.8); NEUTROPHILS % (AUTO) 91.4 % (42.0-75.0); PLATELET COUNT 275 X10^3/uL (150.0-450.0); RED BLOOD COUNT 3.72 X10^6/uL (3.5-5.4); RED CELL DISTRIBUTION WIDTH 13.3 % (11.6-16.5); WHITE BLOOD COUNT 14.7 X10^3/uL (3.6-10.0)
[2020-10-16 05:25] LABS: ALANINE AMINOTRANSFERASE 56 Units/L (12-78); ALBUMIN 2.1 g/dL (3.4-5.0); ALKALINE PHOSPHATASE 116 Units/L (46-116); ASPARTATE AMINO TRANSFERASE 33 Units/L (15-37); BLOOD UREA NITROGEN 17 mg/dL (7-18); CALCIUM 8.1 mg/dL (8.5-10.1); CARBON DIOXIDE 29.2 mmol/L (21-32); CHLORIDE 102 mmol/L (98-107); COR CA(FOR HYPOALB) 9.6 mg/dL (8.5-10.1); COR NA(FOR HYPERGLY) 140 mmol/L (136-145); CREATININE 0.77 mg/dL (0.55-1.02); SODIUM 137 mmol/L (136-145); TOTAL PROTEIN 5.8 g/dL (6.4-8.2); eGFR NON BLACK RACES > 60 (>60)
[2020-10-16 05:55] LABS: PLATELET MORPHOLOGY COMMENT NORMAL (NORMAL)
[2020-10-16 05:57] LABS: ABG ALLEN TEST POS; ABG BASE EXCESS 5.9 mmol/L (-2.0-2.0); ABG HCO3 29.7 mmol/L (22-26)
[2020-10-16] MEDS: PERIACTIN TAB 4 MG PO SCH ×3 (06:13→20:43)
[2020-10-16] MEDS: K-RIDER 10 MEQ/NS 100 ML 10 MEQ/100 ML BAG IV PRN ×3 (06:13→09:00)
[2020-10-16] MEDS: TESSALON PERLES PO SCH ×3 (06:13→20:43)
[2020-10-16] MEDS: HumuLIN R SUBCUT PRN ×4 (06:14→20:31)
[2020-10-16] MEDS: ACCUNEB 1.25 MG NEBULE NEB SCH ×3 (06:36→20:15)
[2020-10-16] MEDS: PULMICORT NEB TX 0.5 MG NEB SCH ×2 (07:45→20:15)
[2020-10-16] MEDS: BROVANA IN SCH ×2 (07:45→20:15)
--- NOTE | 2020-10-16 07:52 | RAD ---
HISTORYPNEUMONIA F/USTUDYCHEST, 1 [id number] areas of opacity in the lung bases probably represents pneu monia. Unchanged from yesterday.No pleural effusion or pneumothorax.Heart size is normal.Bones are un remarkable.EKG leads are noted.IMPRESSION1. Unchanged basilar pneumoniaElectronically signed by: Salvador Barber (Oct 16, 2020 07:51:06)
[2020-10-16] MEDS: XANAX PO SCH ×3 (08:18→20:37)
[2020-10-16] MEDS: THIAMINE HCL INJ IVP SCH ×2 (08:56→20:25)
[2020-10-16] MEDS: FLUVOXAMINE MALEATE PO SCH ×2 (08:56→20:43)
[2020-10-16] MEDS: PROTONIX TAB 40 MG PO SCH ×2 (08:56→20:43)
[2020-10-16] MEDS: LOVENOX INJ 80 MG SYR SC SCH ×2 (08:56→20:31)
[2020-10-16] MEDS: VITAMIN D3 125 mcg (5,000 UNITS) PO SCH (08:57)
[2020-10-16] MEDS: VIBRAMYCIN 100 MG in D5W 250 ML IV 250 ML IV SCH ×2 (08:57→21:10)
[2020-10-16] MEDS: ZINC SULFATE PO SCH (08:57)
[2020-10-16] MEDS: ZyrTEC TAB 10 MG PO SCH (08:58)
[2020-10-16] MEDS: PEPCID TAB 40 MG PO SCH ×2 (14:01→20:43)
[2020-10-16] MEDS: XYLOCAINE OINT 5% 1 APPLIC, ZOVIRAX 1 APPLIC TOP SCH ×4 (14:30→21:00)
--- NOTE | 2020-10-16 14:37 | PCM.PROG ---
Progress Note - Progress Note for Day of Date of Exam: 10/16/20 - Subjective Subjective: MS. RICHARDS WAS ADMITTED FOR TREATMENT OF COVID PNEUMONIA AND HYPOXIA. SHE RECEIVED [facility]OV INFUSION IN [place], [place] ON 10/05/20. TODAY, SHE IS ALERT AND ORIENTED, SITTING UP IN THE CHAIR ON MORNING ROUNDS. SHE IS CURRENTLY UTILIZING HEATED HIGH FLOW OXYGEN WITH FI02 AT 85%. SHE USES THE BIPAP AT NIGHT. NURSING STAFF REPORTS THAT SHE HAS BEEN AGITATED AND ANXIOUS THROUGHOUT THE NIGHT. SHE HAS REFUSED TO TAKE SEVERAL MEDICATIONS LAST NIGGHT AND THIS MORNING. SHE DENIES SIGNIFICANT IMPROVEMENT IN SYMPTOMS. HER SATURATIONS HAVE BEEN 82-90% THIS MORNING AND THROUGHOUT THE NIGHT. ON EXA MINATION, HEART IS REGULAR IN RATE AND RHYTHM. BILATERAL LUNGS ARE NOTED WITH RALES THROUGHOUT. ABDOMEN IS ROUND, SOFT, AND NON-TENDER WITH NORMAL BOWEL SOUNDS NOTED IN ALL QUADRANTS. HIS VITALS THIS MORNING ARE: 97.7-79-27-82%-124/66. LABS WERE OBTAINED. ABNORMAL LAB VALUES INCLUDE THE FOLLOWING: WBC 14.7,HCT 35.3, POTASSIUM 3.4, GLUCOSE 213, CALCIUM 8.1, TOTAL BILI 1.10, CRP 7.20, TOTAL PROTEIN 5.8, ALBUMIN 2.1. ABG REVEALED: PH 7.490, PC02 39, P02 52, HC03 29.7, 02 SAT 89, BASE EXCESS 5.9, A-A GRADIENT 612, FI02 100 . A CHEST XRAY WAS OBTAINED AND REVEALED: 1. Unchanged basilar pneumonia. SHE IS CURRENTLY RECEIVING NS AT 20 ML/HR, LEVAQUIN 500MG IV DAILY, IV DOXYCYCLINE 100MG BID, ASCORBIC ACID 1500MG IV Q6H, ALBUTEROL NEBS QID, PULMICORT NEBS BID, SOLU-MEDROL 125MG IV6H, XANAX 0.5MG PO BID PRN, IV MORPHINE 2MG Q6H PRN, FLUVOXAMINE 50MG PO BID, CYPROHEPTADINE 8MG PO TID, ZOFRAN 4MG IV Q8H PRN, LOVENOX 85MG SC Q12H, LIPITOR 80MG PO HS, TESSALON PERLES 200MG PO TID, CETIRIZINE 10MG PO DAILY, XANAX 0.5MG PO GID, PEPCID 40MG PO BID, ROBITUSSIN DM 10ML PO QID PRN, HUMULIN R SLIDING SCALE, SINGULAIR 10MG PO HS, PROTONIX 40MG PO BID, THIAMINE 200MG IV BID, AND ZINC SULFATE 220MG PO BID, RESTORIL, THE POTASSIUM PROTOCOL. SHE HAS FINISHED A 5 DOSE COURSE OF REMDESIVIR. WE WILL CONTINUE WITH CURRENT PLAN OF CARE TODAY AND ATTEMPT TO WEAN DOWN OXYGEN SHE TOLERATES IT. OTHERWISE, WE WILL ADD NYSTATIN SUSP 5ML PO TID, MAGIC MOUTHWASH TID, AND ACYCLOVIR TID. WE WILL FOLLOW UP WITH AM LABS, CHEST XRAY, ABG, AND CONTINUE TO MONITOR. TIME SPENT ON CLINICAL ASSESSMENT, REVIEWING LABS AND IMAGING, DECISION MAKING, AND DOCUMENTATION GREATER THAN 45 MINUTES. - Past Medical Family Social History Past Med/Fam/Surg Hx: No changes since H&P Allergies: Allergies ibuprofen Adverse Reaction (Verified 10/06/20 20:57) abd pain - Review of Systems ROS: No change since H&P - Vital Signs and I&O's Vital Signs: Temperature 97.7 F Pulse Rate [Apical] 71 Pulse Rate [Left] 81 Pulse Rate 72 Respiratory Rate 25 Blood Pressure [Right Arm] 117/65 Blood Pressure [Left Arm] 147/90 Blood Pressure 110/66 O2 Sat by Pulse Oximetry 90 Intake and Output: Intake & Output 10/14/20 10/15/20 10/16/20 10/17/20 11:59 11:59 11:59 11:59 Intake Total 1390 / 1390 2480 / 2480 1710 / 1710 Balance 1390 / 1390 2480 / 2480 1710 / 1710 - Physical Exam Oriented: Normal Eyes: Normal Ear: Normal Nose: Normal Throat: Normal Respiratory: Generalized, Diminished, Rales Cardiovascular: Normal : Normal Auscultation: Bowel Sounds: Normal Tenderness: Normal Skin: Normal Musculoskeletal: Normal Psychiatric: Normal Mood Description: Anxious Affect: Anxious Speech Pattern: Clear, Appropriate - Laboratory and Diagnostics Result Diagrams: 10/16/20 04:15 10/16/20 04:15 Labs: 10/07/20 11:51 Blood Blood Culture - Final 10/07/20 11:49 Blood Blood Culture - Final Laboratory WBC 14.7 X10^3/uL (3.6-10.0) H 10/16/20 04:15 RBC 3.72 X10^6/uL (3.5-5.4) 10/16/20 04:15 Hgb 12.0 g/dL (12.0-16.0) 10/16/20 04:15 Hct 35.3 % (36.0-47.0) L 10/16/20 04:15 MCV 94.7 fL (80.0-100.0) 10/16/20 04:15 MCH 32.1 pg (27.0-34.0) 10/16/20 04:15 MCHC 33.9 g/dL (33.0-35.0) 10/16/20 04:15 RDW 13.3 % (11.6-16.5) 10/16/20 04:15 Plt Count 275 X10^3/uL (150.0-450.0) 10/16/20 04:15 Plt Count Comment Adequate (ADEQUATE) 10/16/20 04:15 MPV 8.8 fL (7.4-11.0) 10/16/20 04:15 Neut % (Auto) 91.4 % (42.0-75.0) H 10/16/20 04:15 Lymph % (Auto) 3.7 % (21.0-51.0) L 10/16/20 04:15 [place] % (Auto) 4.8 % (0.0-13.0) 10/16/20 04:15 Eos % (Auto) 0.0 % (0.9-2.9) L 10/16/20 04:15 Baso % (Auto) 0.1 % (0.2-1.0) L 10/16/20 04:15 Neut # (Auto) 13.5 x10^3/uL (2.2-4.8) H 10/16/20 04:15 Lymph # (Auto) 0.6 X10^3/uL (1.3-2.9) L 10/16/20 04:15 [place] # (Auto) 0.7 x10^3/uL (0.3-0.8) 10/16/20 04:15 Eos # (Auto) 0.0 x10^3/uL (0.0-0.2) 10/16/20 04:15 Baso # (Auto) 0.0 X10^3/uL (0.0-0.1) 10/16/20 04:15 Absolute Nucleated RBC 0.0 /100WBC 10/16/20 04:15 Total Counted 100 10/16/20 04:15 Neutrophils % (Manual) 90 % (39-76) H 10/16/20 04:15 Lymphocytes % (Manual) 6 % (13-43) L 10/16/20 04:15 Monocytes % (Manual) 4 % (4-9) 10/16/20 04:15 Plt Morphology Comment Normal (NORMAL) 10/16/20 04:15 RBC Morphology Normal (NORMAL) 10/16/20 04:15 D-Dimer 0.40 ug/ml (0.0-0.57) 10/12/20 05:33 Sample Site Lrad 10/16/20 05:55 ABG pH 7.490 (7.35-7.45) H 10/16/20 05:55 ABG pCO2 39.0 mmHg (35.0-45.0) 10/16/20 05:55 ABG pO2 52.0 mmHg (80.0-100.0) L 10/16/20 05:55 ABG HCO3 29.7 mmol/L (22-26) H 10/16/20 05:55 ABG O2 Saturation 89.0 % (90-100) L 10/16/20 05:55 ABG Base Excess 5.9 mmol/L (-2.0-2.0) H 10/16/20 05:55 Loyd Test Pos 10/16/20 05:55 A-a Gradient 612.0 mmHg 10/16/20 05:55 FiO2 100.0 10/16/20 05:55 Blood Gas Comments Coby well mts 10/16/20 05:55 Sodium 137 mmol/L (136-145) 10/16/20 04:15 Corrected Sodium 140 mmol/L (136-145) 10/16/20 04:15 Potassium 3.4 mmol/L (3.5-5.1) L 10/16/20 04:15 Chloride 102 mmol/L (98-107) 10/16/20 04:15 Carbon Dioxide 29.2 mmol/L (21-32) 10/16/20 04:15 BUN 17 mg/dL (7-18) 10/16/20 04:15 Creatinine 0.77 mg/dL (0.55-1.02) 10/16/20 04:15 Est GFR (MDRD) Af Amer > 60 (>60) 10/16/20 04:15 Est GFR (MDRD) Non-Af > 60 (>60) 10/16/20 04:15 Glucose 213 mg/dL (65-99) H 10/16/20 04:15 POC Glucose (mg/dL) 268 mg/dL (65-99) H 10/16/20 11:46 Calcium 8.1 mg/dL (8.5-10.1) L 10/16/20 04:15 Corrected Calcium 9.6 mg/dL (8.5-10.1) 10/16/20 04:15 Magnesium 2.4 mg/dL (1.7-2.9) 10/16/20 04:15 Ferritin 531 ng/mL (8-252) H 10/12/20 05:33 Total Bilirubin 1.10 mg/dL (0.2-1.0) H 10/16/20 04:15 AST 33 Units/L (15-37) 10/16/20 04:15 ALT 56 Units/L (12-78) 10/16/20 04:15 Alkaline Phosphatase 116 Units/L (46-116) 10/16/20 04:15 Creatine Kinase 180 Units/L (26-192) 10/07/20 11:49 CK-MB (CK-2) < 1.0 ng/mL (0-4.0) 10/07/20 11:49 CK/CKMB % Calc 0.6 % (<4) 10/07/20 11:49 Troponin I < 0.02 ng/mL (0-1.5) 10/07/20 11:49 C-Reactive Protein 7.20 mg/L (0-3.0) H 10/16/20 04:15 B-Natriuretic Peptide 108 pg/mL (0-79) H 10/12/20 05:33 Total Protein 5.8 g/dL (6.4-8.2) L 10/16/20 04:15 Albumin 2.1 g/dL (3.4-5.0) L 10/16/20 04:15 Globulin 3.7 g/dL (2.5-4.5) 10/16/20 04:15 Albumin/Globulin Ratio 0.6 Ratio (1.1-2.1) L 10/16/20 04:15 - Plan (1) Pneumonia due to COVID-19 virus Status: Acute Plan: SUPPLEMENTAL OXYGEN, NS AT 20 ML/HR, LEVAQUIN 500MG IV DAILY, IV DOXYCYCLINE 100MG BID, ASCORBIC ACID 1500MG IV Q6H, ALBUTEROL NEBS QID, PULMICORT NEBS BID, SOLU-MEDROL 125MG IV6H, XANAX 0.5MG PO BID PRN, IV MORPHINE 2MG Q6H PRN, FLUVOXAMINE 50MG PO BID, CYPROHEPTADINE 8MG PO TID, ZOFRAN 4MG IV Q8H PRN, LOVENOX 85MG SC Q12H, LIPITOR 80MG PO HS, TESSALON PERLES 200MG PO TID, CETIRIZINE 10MG PO DAILY, XANAX 0.5MG PO GID, PEPCID 40MG PO BID, ROBITUSSIN DM 10ML PO QID PRN, HUMULIN R SLIDING SCALE, SINGULAIR 10MG PO HS, PROTONIX 40MG PO BID, THIAMINE 200MG IV BID, NYSTATIN SUSP 5ML PO TID, MAGIC MOUTHWASH TID, ACYCLOVIR TID, AND ZINC SULFATE 220MG PO BID, RESTORIL, THE POTASSIUM PROTOCOL (2) Hypoxia Status: Acute
[2020-10-16] MEDS: NYSTATIN SUSP MT SCH ×2 (15:51→21:35)
[2020-10-16] MEDS: MAGIC MOUTHWASH PO SCH ×2 (15:51→21:35)
[2020-10-16] MEDS: MELATONIN PO SCH (20:37)
[2020-10-16] MEDS: RESTORIL CAP 15 MG PO SCH (20:37)
[2020-10-16] MEDS: LIPITOR TAB 80 MG PO SCH (20:37)
[2020-10-16] MEDS: SINGULAIR TAB 10 MG PO SCH (20:43)
[2020-10-16] MEDS: NORCO 5/325 MG TAB PO PRN (20:50)
[2020-10-16] MEDS: SNACK - Diabetic Appropriate PO SCH (21:32)
[2020-10-17] MEDS: LEVAQUIN PREMIX IV 500 MG 500 MG/100 ML BAG IV SCH (00:12)
[2020-10-17] MEDS: MORPHINE SULFATE INJ 2 MG INJ IVP PRN ×4 (01:34→23:19)
[2020-10-17] MEDS: ASCORBIC ACID INJ MULTI-DOSE VIAL 1,500 MG in NS 50 ML IV 50 ML IV SCH ×4 (02:02→21:15)
[2020-10-17] MEDS: SOLU-Medrol 125 MG VIAL IVP SCH ×4 (02:02→21:10)
[2020-10-17] MEDS: NYSTATIN SUSP MT SCH ×3 (05:05→22:41)
[2020-10-17] MEDS: MAGIC MOUTHWASH PO SCH ×3 (05:05→22:41)
[2020-10-17] MEDS: XYLOCAINE OINT 5% 1 APPLIC, ZOVIRAX 1 APPLIC TOP SCH ×6 (05:05→22:40)
[2020-10-17] MEDS: PERIACTIN TAB 4 MG PO SCH ×3 (05:05→22:41)
[2020-10-17] MEDS: TESSALON PERLES PO SCH ×3 (05:05→22:40)
[2020-10-17 05:14] LABS: BASOPHILS % (AUTO) 0.2 % (0.2-1.0); HEMATOCRIT 33.4 % (36.0-47.0); HEMOGLOBIN 11.5 g/dL (12.0-16.0); LYMPHOCYTES # (AUTO) 0.5 X10^3/uL (1.3-2.9); LYMPHOCYTES % (AUTO) 3.5 % (21.0-51.0); MEAN CORPUSCULAR HEMOGLOBIN 32.4 pg (27.0-34.0); MEAN CORPUSCULAR HGB CONC 34.4 g/dL (33.0-35.0); MONOCYTES # (AUTO) 0.5 x10^3/uL (0.3-0.8); MONOCYTES % (AUTO) 3.6 % (0.0-13.0); NEUTROPHILS # (AUTO) 12.1 x10^3/uL (2.2-4.8); NEUTROPHILS % (AUTO) 92.7 % (42.0-75.0); PLATELET COUNT 234 X10^3/uL (150.0-450.0); RED BLOOD COUNT 3.55 X10^6/uL (3.5-5.4); RED CELL DISTRIBUTION WIDTH 13.3 % (11.6-16.5); WHITE BLOOD COUNT 13.1 X10^3/uL (3.6-10.0)
[2020-10-17 05:18] LABS: ABG ALLEN TEST POS; ABG BASE EXCESS 3.2 mmol/L (-2.0-2.0); ABG HCO3 26.9 mmol/L (22-26)
[2020-10-17] MEDS: HumuLIN R SUBCUT PRN ×4 (05:18→22:51)
[2020-10-17 05:38] LABS: ALANINE AMINOTRANSFERASE 51 Units/L (12-78); ALKALINE PHOSPHATASE 105 Units/L (46-116); ASPARTATE AMINO TRANSFERASE 32 Units/L (15-37); BLOOD UREA NITROGEN 16 mg/dL (7-18); CALCIUM 7.9 mg/dL (8.5-10.1); CARBON DIOXIDE 27.4 mmol/L (21-32); CHLORIDE 102 mmol/L (98-107); COR CA(FOR HYPOALB) 9.5 mg/dL (8.5-10.1); COR NA(FOR HYPERGLY) 139 mmol/L (136-145); CREATININE 0.82 mg/dL (0.55-1.02); SODIUM 137 mmol/L (136-145); TOTAL PROTEIN 5.5 g/dL (6.4-8.2); eGFR NON BLACK RACES > 60 (>60)
[2020-10-17 05:56] LABS: PLATELET MORPHOLOGY COMMENT NORMAL (NORMAL)
[2020-10-17] MEDS: ACCUNEB 1.25 MG NEBULE NEB SCH ×3 (06:36→21:55)
[2020-10-17] MEDS: NS 1000 ML 1,000 ML IV SCH ×2 (08:06→22:40)
--- NOTE | 2020-10-17 08:07 | RAD ---
HISTORYSOBSTUDYCHEST, 1 [id number] cardiomediastinal silhouette is stable. Similar bilateral airspace opacities. The bony thorax appears intact.IMPRESSIONNo significant change.Electronically signed by: EDUIN LOPEZ (Oct 17, 2020 08:06:29)
[2020-10-17] MEDS: LOVENOX INJ 80 MG SYR SC SCH ×2 (08:08→22:54)
[2020-10-17] MEDS: FLUVOXAMINE MALEATE PO SCH ×2 (08:08→21:10)
[2020-10-17] MEDS: PEPCID TAB 40 MG PO SCH ×2 (08:08→21:10)
[2020-10-17] MEDS: THIAMINE HCL INJ IVP SCH ×2 (08:09→21:10)
[2020-10-17] MEDS: PROTONIX TAB 40 MG PO SCH ×2 (08:09→21:10)
[2020-10-17] MEDS: XANAX PO SCH ×3 (08:10→21:05)
[2020-10-17] MEDS: VITAMIN D3 125 mcg (5,000 UNITS) PO SCH (08:10)
[2020-10-17] MEDS: ZyrTEC TAB 10 MG PO SCH (08:10)
[2020-10-17] MEDS: ZINC SULFATE PO SCH (08:10)
[2020-10-17] MEDS: BROVANA IN SCH ×2 (08:20→21:55)
[2020-10-17] MEDS: MICRO K EXTEN CAP 10 MEQ PO PRN (09:00)
[2020-10-17] MEDS: VIBRAMYCIN 100 MG in D5W 250 ML IV 250 ML IV SCH ×2 (10:06→21:30)
[2020-10-17] MEDS: PULMICORT NEB TX 0.5 MG NEB SCH ×2 (14:53→21:55)
--- NOTE | 2020-10-17 17:15 | PCM.PROG ---
Progress Note - Progress Note for Day of Date of Exam: 10/17/20 - Subjective Subjective: MS. RICHARDS WAS ADMITTED FOR TREATMENT OF COVID PNEUMONIA AND HYPOXIA. SHE RECEIVED [facility] INFUSION IN [place], [place] ON 10/05/20. TODAY, SHE IS ALERT AND ORIENTED, SITTING UP IN THE CHAIR ON MORNING ROUNDS. SHE IS CURRENTLY UTILIZING THE BIPAP WITH FI02 AT 85%. NURSING STAFF REPORTS THAT SHE HAS BEEN AGITATED AND ANXIOUS THROUGHOUT THE NIGHT AND THIS MORNING. SHE DENIES SIGNIFICANT IMPROVEMENT IN SYMPTOMS. HER SATURATIONS HAVE BEEN 87-96% THIS MORNING AND THROUGHOUT THE NIGHT. ON EXAMINATION, HEART IS REGULAR IN RATE AND RHYTHM. BILATERAL LUNGS ARE NOTED WITH RALES THROUGHOUT. ABDOMEN IS ROUND, SOFT, AND NON-TENDER WITH NORMAL BOWEL SOUNDS NOTED IN ALL QUADRANTS. HIS VITALS THIS MORNING ARE: 97.7-93-27-88%-114/68. LABS WERE OBTAINED. ABNORMAL LAB VALUES INCLUDE THE FOLLOWING: WBC 13.1, HGB 11.5, HCT 33.4, POTASSIUM 3.4, GLUCOSE 196, CALCIUM 7.9, TOTAL BILI 1.30, CRP 3.90, TOTAL PROTEIN 5.5, ALBUMIN 2.0. ABG REVEALED: PH 7.470, PC02 37, P02 76, HC03 26.9, 02 SAT 96, BASE EXCESS 3.2, A-A GRADIENT 591, FI02 100. A CHEST XRAY WAS OBTAINED AND REVEALED: 1. cardiomediastinal silhouette is stable. Similar bilateral airspace opacities. The bony thorax appears intact. SHE IS CURRENTLY RECEIVING NS AT 20 ML/HR, LEVAQUIN 500MG IV DAILY, IV DOXYCYCLINE 100MG BID, ASCORBIC ACID 1500MG IV Q6H, ALBUTEROL NEBS QID, PULMICORT NEBS BID, SOLU-MEDROL 125MG IV6H, XANAX 0.5MG PO BID PRN, IV MORPHINE 2MG Q6H PRN, FLUVOXAMINE 50MG PO BID, CYPROHEPTADINE 8MG PO TID, ZOFRAN 4MG IV Q8H PRN, NYSTATIN SUSP 5ML PO TID, MAGIC MOUTHWASH TID, ACYCLOVIR TID, LOVENOX 85MG SC Q12H, LIPITOR 80MG PO HS, TESSALON PERLES 200MG PO TID, CETIRIZINE 10MG PO DAILY, XANAX 0.5MG PO GID, PEPCID 40MG PO BID, ROBITUSSIN DM 10ML PO QID PRN, HUMULIN R SLIDING SCALE, SINGULAIR 10MG PO HS, PROTONIX 40MG PO BID, THIAMINE 200MG IV BID, AND ZINC SULFATE 220MG PO BID, RESTORIL, THE POTASSIUM PROTOCOL. SHE HAS FINISHED A 5 DOSE COURSE OF REMDESIVIR. WE WILL CONTINUE WITH CURRENT PLAN OF CARE TODAY AND ATTEMPT TO WEAN DOWN OXYGEN SHE TOLERATES IT. WE WILL FOLLOW UP WITH AM LABS, CHEST XRAY, ABG, AND CONTINUE TO MONITOR. TIME SPENT ON CLINICAL ASSESSMENT, REVIEWING LABS AND IMAGING, DECISION MAKING, AND DOCUMENTATION GREATER THAN 45 MINUTES. - Past Medical Family Social History Past Med/Fam/Surg Hx: No changes since H&P Allergies: Allergies ibuprofen Adverse Reaction (Verified 10/06/20 20:57) abd pain - Review of Systems ROS: No change since H&P - Vital Signs and I&O's Vital Signs: Temperature 97.2 F Pulse Rate [Apical] 71 Pulse Rate [Left] 81 Pulse Rate 74 Respiratory Rate 23 Blood Pressure [Right Arm] 117/65 Blood Pressure [Left Arm] 147/90 Blood Pressure 139/76 O2 Sat by Pulse Oximetry 91 Intake and Output: Intake & Output 10/15/20 10/16/20 10/17/20 10/18/20 11:59 11:59 11:59 11:59 Intake Total 2480 / 2480 1710 / 1710 2595 / 2595 836 / 836 Balance 2480 / 2480 1710 / 1710 2595 / 2595 836 / 836 - Physical Exam Oriented: Normal Eyes: Normal Ear: Normal Nose: Normal Throat: Normal Respiratory: Generalized, Diminished, Rales Cardiovascular: Normal : Normal Auscultation: Bowel Sounds: Normal Tenderness: Normal Skin: Normal Musculoskeletal: Normal Psychiatric: Normal Mood Description: Anxious Affect: Anxious Speech Pattern: Clear, Appropriate - Laboratory and Diagnostics Result Diagrams: 10/17/20 03:45 10/17/20 03:45 Labs: 10/07/20 11:51 Blood Blood Culture - Final 10/07/20 11:49 Blood Blood Culture - Final Laboratory WBC 13.1 X10^3/uL (3.6-10.0) H 10/17/20 03:45 RBC 3.55 X10^6/uL (3.5-5.4) 10/17/20 03:45 Hgb 11.5 g/dL (12.0-16.0) L 10/17/20 03:45 Hct 33.4 % (36.0-47.0) L 10/17/20 03:45 MCV 94.0 fL (80.0-100.0) 10/17/20 03:45 MCH 32.4 pg (27.0-34.0) 10/17/20 03:45 MCHC 34.4 g/dL (33.0-35.0) 10/17/20 03:45 RDW 13.3 % (11.6-16.5) 10/17/20 03:45 Plt Count 234 X10^3/uL (150.0-450.0) 10/17/20 03:45 Plt Count Comment Adequate (ADEQUATE) 10/17/20 03:45 MPV 9.0 fL (7.4-11.0) 10/17/20 03:45 Neut % (Auto) 92.7 % (42.0-75.0) H 10/17/20 03:45 Lymph % (Auto) 3.5 % (21.0-51.0) L 10/17/20 03:45 [place] % (Auto) 3.6 % (0.0-13.0) 10/17/20 03:45 Eos % (Auto) 0.0 % (0.9-2.9) L 10/17/20 03:45 Baso % (Auto) 0.2 % (0.2-1.0) 10/17/20 03:45 Neut # (Auto) 12.1 x10^3/uL (2.2-4.8) H 10/17/20 03:45 Lymph # (Auto) 0.5 X10^3/uL (1.3-2.9) L 10/17/20 03:45 [place] # (Auto) 0.5 x10^3/uL (0.3-0.8) 10/17/20 03:45 Eos # (Auto) 0.0 x10^3/uL (0.0-0.2) 10/17/20 03:45 Baso # (Auto) 0.0 X10^3/uL (0.0-0.1) 10/17/20 03:45 Absolute Nucleated RBC 0.1 /100WBC 10/17/20 03:45 Total Counted 100 10/17/20 03:45 Neutrophils % (Manual) 98 % (39-76) H 10/17/20 03:45 Lymphocytes % (Manual) 2 % (13-43) L 10/17/20 03:45 Monocytes % (Manual) 4 % (4-9) 10/16/20 04:15 Plt Morphology Comment Normal (NORMAL) 10/17/20 03:45 RBC Morphology Normal (NORMAL) 10/17/20 03:45 D-Dimer 0.40 ug/ml (0.0-0.57) 10/12/20 05:33 Sample Site Lr 10/17/20 05:12 ABG pH 7.470 (7.35-7.45) H 10/17/20 05:12 ABG pCO2 37.0 mmHg (35.0-45.0) 10/17/20 05:12 ABG pO2 76.0 mmHg (80.0-100.0) L 10/17/20 05:12 ABG HCO3 26.9 mmol/L (22-26) H 10/17/20 05:12 ABG O2 Saturation 96.0 % (90-100) 10/17/20 05:12 ABG Base Excess 3.2 mmol/L (-2.0-2.0) H 10/17/20 05:12 Loyd Test Pos 10/17/20 05:12 A-a Gradient 591.0 mmHg 10/17/20 05:12 FiO2 100.0 10/17/20 05:12 Blood Gas Comments Coby well ae 10/17/20 05:12 Sodium 137 mmol/L (136-145) 10/17/20 03:45 Corrected Sodium 139 mmol/L (136-145) 10/17/20 03:45 Potassium 3.4 mmol/L (3.5-5.1) L 10/17/20 03:45 Chloride 102 mmol/L (98-107) 10/17/20 03:45 Carbon Dioxide 27.4 mmol/L (21-32) 10/17/20 03:45 BUN 16 mg/dL (7-18) 10/17/20 03:45 Creatinine 0.82 mg/dL (0.55-1.02) 10/17/20 03:45 Est GFR (MDRD) Af Amer > 60 (>60) 10/17/20 03:45 Est GFR (MDRD) Non-Af > 60 (>60) 10/17/20 03:45 Glucose 196 mg/dL (65-99) H 10/17/20 03:45 POC Glucose (mg/dL) 268 mg/dL (65-99) H 10/17/20 16:41 Calcium 7.9 mg/dL (8.5-10.1) L 10/17/20 03:45 Corrected Calcium 9.5 mg/dL (8.5-10.1) 10/17/20 03:45 Magnesium 2.4 mg/dL (1.7-2.9) 10/16/20 04:15 Ferritin 531 ng/mL (8-252) H 10/12/20 05:33 Total Bilirubin 1.30 mg/dL (0.2-1.0) H 10/17/20 03:45 AST 32 Units/L (15-37) 10/17/20 03:45 ALT 51 Units/L (12-78) 10/17/20 03:45 Alkaline Phosphatase 105 Units/L (46-116) 10/17/20 03:45 Creatine Kinase 180 Units/L (26-192) 10/07/20 11:49 CK-MB (CK-2) < 1.0 ng/mL (0-4.0) 10/07/20 11:49 CK/CKMB % Calc 0.6 % (<4) 10/07/20 11:49 Troponin I < 0.02 ng/mL (0-1.5) 10/07/20 11:49 C-Reactive Protein 3.90 mg/L (0-3.0) H 10/17/20 03:45 B-Natriuretic Peptide 108 pg/mL (0-79) H 10/12/20 05:33 Total Protein 5.5 g/dL (6.4-8.2) L 10/17/20 03:45 Albumin 2.0 g/dL (3.4-5.0) L 10/17/20 03:45 Globulin 3.5 g/dL (2.5-4.5) 10/17/20 03:45 Albumin/Globulin Ratio 0.6 Ratio (1.1-2.1) L 10/17/20 03:45 - Plan (1) Pneumonia due to COVID-19 virus Status: Acute Plan: SUPPLEMENTAL OXYGEN, NS AT 20 ML/HR, LEVAQUIN 500MG IV DAILY, IV DOXYCYCLINE 100MG BID, ASCORBIC ACID 1500MG IV Q6H, ALBUTEROL NEBS QID, PULMICORT NEBS BID, SOLU-MEDROL 125MG IV6H, XANAX 0.5MG PO BID PRN, IV MORPHINE 2MG Q6H PRN, FLUVOXAMINE 50MG PO BID, CYPROHEPTADINE 8MG PO TID, ZOFRAN 4MG IV Q8H PRN, LOVENOX 85MG SC Q12H, LIPITOR 80MG PO HS, TESSALON PERLES 200MG PO TID, CETIRIZINE 10MG PO DAILY, XANAX 0.5MG PO GID, PEPCID 40MG PO BID, ROBITUSSIN DM 10ML PO QID PRN, HUMULIN R SLIDING SCALE, SINGULAIR 10MG PO HS, PROTONIX 40MG PO BID, THIAMINE 200MG IV BID, NYSTATIN SUSP 5ML PO TID, MAGIC MOUTHWASH TID, ACYCLOVIR TID, AND ZINC SULFATE 220MG PO BID, RESTORIL, THE POTASSIUM PROTOCOL (2) Hypoxia Status: Acute
[2020-10-17] MEDS: ROBITUSSIN DM PO PRN (19:34)
[2020-10-17] MEDS: RESTORIL CAP 15 MG PO SCH (21:10)
[2020-10-17] MEDS: SINGULAIR TAB 10 MG PO SCH (21:10)
[2020-10-17] MEDS: LIPITOR TAB 80 MG PO SCH (21:10)
[2020-10-17] MEDS: MELATONIN PO SCH (21:15)
[2020-10-17] MEDS: NORCO 5/325 MG TAB PO PRN (21:23)
[2020-10-17] MEDS: SNACK - Diabetic Appropriate PO SCH (22:45)
[2020-10-17] MEDS: TUSSIONEX PENNKINETIC SUSP PO PRN (23:11)
[2020-10-18] MEDS: LEVAQUIN PREMIX IV 500 MG 500 MG/100 ML BAG IV SCH (01:00)
[2020-10-18] MEDS: MORPHINE SULFATE INJ 2 MG INJ IVP PRN ×4 (02:53→21:34)
[2020-10-18] MEDS: ASCORBIC ACID INJ MULTI-DOSE VIAL 1,500 MG in NS 50 ML IV 50 ML IV SCH ×4 (03:13→21:15)
[2020-10-18] MEDS: SOLU-Medrol 125 MG VIAL IVP SCH ×4 (03:15→21:15)
[2020-10-18 04:48] LABS: BASOPHILS % (AUTO) 0.1 % (0.2-1.0); HEMATOCRIT 34.6 % (36.0-47.0); HEMOGLOBIN 11.6 g/dL (12.0-16.0); LYMPHOCYTES # (AUTO) 0.7 X10^3/uL (1.3-2.9); MEAN CORPUSCULAR HGB CONC 33.7 g/dL (33.0-35.0); MEAN CORPUSCULAR VOLUME 94.9 fL (80.0-100.0); MEAN PLATELET VOLUME 9.1 fL (7.4-11.0); MONOCYTES # (AUTO) 0.9 x10^3/uL (0.3-0.8); MONOCYTES % (AUTO) 5.2 % (0.0-13.0); NEUTROPHILS # (AUTO) 15.9 x10^3/uL (2.2-4.8); NEUTROPHILS % (AUTO) 90.7 % (42.0-75.0); PLATELET COUNT 204 X10^3/uL (150.0-450.0); RED BLOOD COUNT 3.64 X10^6/uL (3.5-5.4); RED CELL DISTRIBUTION WIDTH 13.1 % (11.6-16.5); WHITE BLOOD COUNT 17.5 X10^3/uL (3.6-10.0)
[2020-10-18 05:00] LABS: ALANINE AMINOTRANSFERASE 51 Units/L (12-78); ALBUMIN 2.1 g/dL (3.4-5.0); ALKALINE PHOSPHATASE 120 Units/L (46-116); ASPARTATE AMINO TRANSFERASE 33 Units/L (15-37); BLOOD UREA NITROGEN 16 mg/dL (7-18); CALCIUM 7.9 mg/dL (8.5-10.1); CARBON DIOXIDE 30.3 mmol/L (21-32); CHLORIDE 102 mmol/L (98-107); COR CA(FOR HYPOALB) 9.4 mg/dL (8.5-10.1); COR NA(FOR HYPERGLY) 141 mmol/L (136-145); SODIUM 138 mmol/L (136-145); TOTAL PROTEIN 5.5 g/dL (6.4-8.2); eGFR NON BLACK RACES > 60 (>60)
[2020-10-18] MEDS: MAGIC MOUTHWASH PO SCH ×3 (05:28→22:24)
[2020-10-18] MEDS: ACCUNEB 1.25 MG NEBULE NEB SCH ×3 (05:30→21:45)
[2020-10-18] MEDS: K-DUR TAB 20 MEQ PO PRN (05:31)
[2020-10-18 05:32] LABS: ABG BASE EXCESS 5.6 mmol/L (-2.0-2.0); ABG HCO3 29.8 mmol/L (22-26)
[2020-10-18] MEDS: XYLOCAINE OINT 5% 1 APPLIC, ZOVIRAX 1 APPLIC TOP SCH ×6 (05:32→22:22)
[2020-10-18 05:33] LABS: ABG ALLEN TEST POS
[2020-10-18] MEDS: TESSALON PERLES PO SCH ×3 (05:33→21:15)
[2020-10-18] MEDS: PERIACTIN TAB 4 MG PO SCH ×3 (05:34→21:15)
[2020-10-18] MEDS: NYSTATIN SUSP MT SCH ×3 (05:35→22:24)
[2020-10-18] MEDS: HumuLIN R SUBCUT PRN ×4 (05:57→22:19)
[2020-10-18 05:59] LABS: PLATELET MORPHOLOGY COMMENT NORMAL (NORMAL)
[2020-10-18] MEDS: LOVENOX INJ 80 MG SYR SC SCH ×2 (08:07→21:15)
[2020-10-18] MEDS: PROTONIX TAB 40 MG PO SCH ×2 (08:08→21:15)
[2020-10-18] MEDS: PEPCID TAB 40 MG PO SCH ×2 (08:08→21:15)
[2020-10-18] MEDS: FLUVOXAMINE MALEATE PO SCH ×2 (08:08→21:15)
[2020-10-18] MEDS: THIAMINE HCL INJ IVP SCH ×2 (08:09→21:15)
[2020-10-18] MEDS: XANAX PO SCH ×3 (08:09→21:15)
[2020-10-18] MEDS: VITAMIN D3 125 mcg (5,000 UNITS) PO SCH (08:09)
[2020-10-18] MEDS: ZINC SULFATE PO SCH (08:09)
[2020-10-18] MEDS: ZyrTEC TAB 10 MG PO SCH (08:10)
--- NOTE | 2020-10-18 08:17 | RAD ---
HISTORYSOBSTUDYCHEST, 1 [id number] areas of abnormal opacity mostly in the lung bases is consistent with pneumonia, better appreciated on the CT 10/07/2020.There may be a slight improvement since the prior study.No pleural effusion or pneumothorax.Heart size is normal.Bones are unremarkable.EKG leads are noted.IMPRESSION1. Improved pneumoniaElectronically signed by: Jason Barber (Oct 18, 2020 08:15:28)
[2020-10-18] MEDS: BROVANA IN SCH ×2 (08:59→21:45)
[2020-10-18] MEDS: PULMICORT NEB TX 0.5 MG NEB SCH ×2 (08:59→21:45)
[2020-10-18] MEDS: VIBRAMYCIN 100 MG in D5W 250 ML IV 250 ML IV SCH ×2 (09:00→21:15)
[2020-10-18] MEDS: NS 1000 ML 1,000 ML IV SCH ×2 (09:44→22:18)
[2020-10-18] MEDS: TUSSIONEX PENNKINETIC SUSP PO PRN (15:36)
--- NOTE | 2020-10-18 19:08 | PCM.PROG ---
Progress Note - Progress Note for Day of Date of Exam: 10/18/20 - Subjective Subjective: MS. RICHARDS WAS ADMITTED FOR TREATMENT OF COVID PNEUMONIA AND HYPOXIA. SHE RECEIVED [facility] INFUSION IN [place], [place] ON 10/05/20. TODAY, SHE IS ALERT AND ORIENTED, LYING IN THE BED ON MORNING ROUNDS. SHE IS CURRENTLY UTILIZING THE BIPAP WITH FI02 AT 100%. NURSING STAFF REPORTS THAT HER S ATURATIONS HAVE DROPPED INTO THE LOWER 80s WHILE ON THE BIPAP THROUGHOUT THE NIGHT. SHE DENIES SIGNIFICANT IMPROVEMENT IN SYMPTOMS. ON EXAMINATION, HEART IS REGULAR IN RATE AND RHYTHM. BILATERAL LUNGS ARE NOTED WITH RALES THROUGHOUT. ABDOMEN IS ROUND, SOFT, AND NON-TENDER WITH NORMAL BOWEL SOUNDS NOTED IN ALL QUADRANTS. HIS VITALS THIS MORNING ARE: 97.8-74-28-88%-145/82. LABS WERE OBTAINED. ABNORMAL LAB VALUES INCLUDE THE FOLLOWING: WBC 17.5, HGB 11.6, HCT 34.6, POTASSIUM 3.4, GLUCOSE 215, CALCIUM 7.9, TOTAL BILI 1.20, ALK PHOS 120, TOTAL PROTEIN 5.5, ALBUMIN 2.1. ABG REVEALED: PH 7.470, PC02 41, P02 48, HC03 29.8, 02 SAT 86, BASE EXCESS 5.6, A-A GRADIENT 614, FI02 100. A CHEST XRAY WAS OBTAINED AND REVEALED: 1. Improved pneumonia. SHE IS CURRENTLY RECEIVING NS AT 20 ML/HR, LEVAQUIN 500MG IV DAILY, IV DOXYCYCLINE 100MG BID, ASCORBIC ACID 1500MG IV Q6H, ALBUTEROL NEBS QID, PULMICORT NEBS BID, SOLU-MEDROL 125MG IV6H, XANAX 0.5MG PO BID PRN, IV MORPHINE 2MG Q6H PRN, FLUVOXAMINE 50MG PO BID, CYPROHEPTADINE 8MG PO TID, ZOFRAN 4MG IV Q8H PRN, NYSTATIN SUSP 5ML PO TID, MAGIC MOUTHWASH TID, ACYCLOVIR TID, LOVENOX 85MG SC Q12H, LIPITOR 80MG PO HS, TESSALON PERLES 200MG PO TID, CETIRIZINE 10MG PO DAILY, XANAX 0.5MG PO GID, PEPCID 40MG PO BID, ROBITUSSIN DM 10ML PO QID PRN, HUMULIN R SLIDING SCALE, SINGULAIR 10MG PO HS, PROTONIX 40MG PO BID, THIAMINE 200MG IV BID, AND ZINC SULFATE 220MG PO BID, RESTORIL, THE POTASSIUM PROTOCOL. SHE HAS FINISHED A 5 DOSE COURSE OF REMDESIVIR. WE WILL CONTINUE WITH CURRENT PLAN OF CARE TODAY AND ATTEMPT TO WEAN DOWN OXYGEN SHE TOLERATES IT. WE WILL FOLLOW UP WITH AM LABS, CHEST XRAY, ABG, AND CONTINUE TO MONITOR. TIME SPENT ON CLINICAL ASSESSMENT, REVIEWING LABS AND IMAGING, DECISION MAKING, AND DOCUMENTATION GREATER THAN 45 MINUTES. - Past Medical Family Social History Past Med/Fam/Surg Hx: No changes since H&P Allergies: Allergies ibuprofen Adverse Reaction (Verified 10/06/20 20:57) abd pain - Review of Systems ROS: No change since H&P - Vital Signs and I&O's Vital Signs: Temperature 98.6 F Pulse Rate [Apical] 71 Pulse Rate [Left] 81 Pulse Rate 67 Respiratory Rate 24 Blood Pressure [Right Arm] 117/65 Blood Pressure [Left Arm] 147/90 Blood Pressure 128/69 O2 Sat by Pulse Oximetry 87 Intake and Output: Intake & Output 10/16/20 10/17/20 10/18/20 10/19/20 11:59 11:59 11:59 11:59 Intake Total 1710 / 1710 2595 / 2595 1889 / 1889 881 / 881 Output Total 400 / 400 Balance 1710 / 1710 2595 / 2595 1889 / 1889 481 / 481 - Physical Exam Oriented: Normal Eyes: Normal Ear: Normal Nose: Normal Throat: Normal Respiratory: Generalized, Diminished, Rales Cardiovascular: Normal : Normal Auscultation: Bowel Sounds: Normal Palpation: Normal Tenderness: Normal Skin: Normal Musculoskeletal: Normal Psychiatric: Normal Mood Description: Anxious Affect: Anxious Speech Pattern: Clear, Appropriate - Laboratory and Diagnostics Result Diagrams: 10/18/20 03:35 10/18/20 03:35 Labs: 10/07/20 11:51 Blood Blood Culture - Final 10/07/20 11:49 Blood Blood Culture - Final Laboratory WBC 17.5 X10^3/uL (3.6-10.0) H 10/18/20 03:35 RBC 3.64 X10^6/uL (3.5-5.4) 10/18/20 03:35 Hgb 11.6 g/dL (12.0-16.0) L 10/18/20 03:35 Hct 34.6 % (36.0-47.0) L 10/18/20 03:35 MCV 94.9 fL (80.0-100.0) 10/18/20 03:35 MCH 32.0 pg (27.0-34.0) 10/18/20 03:35 MCHC 33.7 g/dL (33.0-35.0) 10/18/20 03:35 RDW 13.1 % (11.6-16.5) 10/18/20 03:35 Plt Count 204 X10^3/uL (150.0-450.0) 10/18/20 03:35 Plt Count Comment Adequate (ADEQUATE) 10/18/20 03:35 MPV 9.1 fL (7.4-11.0) 10/18/20 03:35 Neut % (Auto) 90.7 % (42.0-75.0) H 10/18/20 03:35 Lymph % (Auto) 4.0 % (21.0-51.0) L 10/18/20 03:35 [place] % (Auto) 5.2 % (0.0-13.0) 10/18/20 03:35 Eos % (Auto) 0.0 % (0.9-2.9) L 10/18/20 03:35 Baso % (Auto) 0.1 % (0.2-1.0) L 10/18/20 03:35 Neut # (Auto) 15.9 x10^3/uL (2.2-4.8) H 10/18/20 03:35 Lymph # (Auto) 0.7 X10^3/uL (1.3-2.9) L 10/18/20 03:35 [place] # (Auto) 0.9 x10^3/uL (0.3-0.8) H 10/18/20 03:35 Eos # (Auto) 0.0 x10^3/uL (0.0-0.2) 10/18/20 03:35 Baso # (Auto) 0.0 X10^3/uL (0.0-0.1) 10/18/20 03:35 Absolute Nucleated RBC 0.1 /100WBC 10/18/20 03:35 Total Counted 100 10/18/20 03:35 Neutrophils % (Manual) 88 % (39-76) H 10/18/20 03:35 Lymphocytes % (Manual) 4 % (13-43) L 10/18/20 03:35 Monocytes % (Manual) 8 % (4-9) 10/18/20 03:35 Plt Morphology Comment Normal (NORMAL) 10/18/20 03:35 RBC Morphology Normal (NORMAL) 10/18/20 03:35 D-Dimer 0.40 ug/ml (0.0-0.57) 10/12/20 05:33 Sample Site Lrad 10/18/20 05:29 ABG pH 7.470 (7.35-7.45) H 10/18/20 05:29 ABG pCO2 41.0 mmHg (35.0-45.0) 10/18/20 05:29 ABG pO2 48.0 mmHg (80.0-100.0) L* 10/18/20 05:29 ABG HCO3 29.8 mmol/L (22-26) H 10/18/20 05:29 ABG O2 Saturation 86.0 % (90-100) L 10/18/20 05:29 ABG Base Excess 5.6 mmol/L (-2.0-2.0) H 10/18/20 05:29 Loyd Test Pos 10/18/20 05:29 A-a Gradient 614.0 mmHg 10/18/20 05:29 FiO2 100.0 10/18/20 05:29 Blood Gas Comments Coby abg well-mtf 10/18/20 05:29 Sodium 138 mmol/L (136-145) 10/18/20 03:35 Corrected Sodium 141 mmol/L (136-145) 10/18/20 03:35 Potassium 3.3 mmol/L (3.5-5.1) L 10/18/20 03:35 Chloride 102 mmol/L (98-107) 10/18/20 03:35 Carbon Dioxide 30.3 mmol/L (21-32) 10/18/20 03:35 BUN 16 mg/dL (7-18) 10/18/20 03:35 Creatinine 0.80 mg/dL (0.55-1.02) 10/18/20 03:35 Est GFR (MDRD) Af Amer > 60 (>60) 10/18/20 03:35 Est GFR (MDRD) Non-Af > 60 (>60) 10/18/20 03:35 Glucose 215 mg/dL (65-99) H 10/18/20 03:35 POC Glucose (mg/dL) 239 mg/dL (65-99) H 10/18/20 15:56 Calcium 7.9 mg/dL (8.5-10.1) L 10/18/20 03:35 Corrected Calcium 9.4 mg/dL (8.5-10.1) 10/18/20 03:35 Magnesium 2.4 mg/dL (1.7-2.9) 10/16/20 04:15 Ferritin 531 ng/mL (8-252) H 10/12/20 05:33 Total Bilirubin 1.20 mg/dL (0.2-1.0) H 10/18/20 03:35 AST 33 Units/L (15-37) 10/18/20 03:35 ALT 51 Units/L (12-78) 10/18/20 03:35 Alkaline Phosphatase 120 Units/L (46-116) H 10/18/20 03:35 Creatine Kinase 180 Units/L (26-192) 10/07/20 11:49 CK-MB (CK-2) < 1.0 ng/mL (0-4.0) 10/07/20 11:49 CK/CKMB % Calc 0.6 % (<4) 10/07/20 11:49 Troponin I < 0.02 ng/mL (0-1.5) 10/07/20 11:49 C-Reactive Protein 2.40 mg/L (0-3.0) 10/18/20 03:35 B-Natriuretic Peptide 108 pg/mL (0-79) H 10/12/20 05:33 Total Protein 5.5 g/dL (6.4-8.2) L 10/18/20 03:35 Albumin 2.1 g/dL (3.4-5.0) L 10/18/20 03:35 Globulin 3.4 g/dL (2.5-4.5) 10/18/20 03:35 Albumin/Globulin Ratio 0.6 Ratio (1.1-2.1) L 10/18/20 03:35 - Plan (1) Pneumonia due to COVID-19 virus Status: Acute Plan: SUPPLEMENTAL OXYGEN, NS AT 20 ML/HR, LEVAQUIN 500MG IV DAILY, IV DOXYCYCLINE 100MG BID, ASCORBIC ACID 1500MG IV Q6H, ALBUTEROL NEBS QID, PULMICORT NEBS BID, SOLU-MEDROL 125MG IV6H, XANAX 0.5MG PO BID PRN, IV MORPHINE 2MG Q6H PRN, FLUVOXAMINE 50MG PO BID, CYPROHEPTADINE 8MG PO TID, ZOFRAN 4MG IV Q8H PRN, LOVENOX 85MG SC Q12H, LIPITOR 80MG PO HS, TESSALON PERLES 200MG PO TID, CETIRIZINE 10MG PO DAILY, XANAX 0.5MG PO GID, PEPCID 40MG PO BID, ROBITUSSIN DM 10ML PO QID PRN, HUMULIN R SLIDING SCALE, SINGULAIR 10MG PO HS, PROTONIX 40MG PO BID, THIAMINE 200MG IV BID, NYSTATIN SUSP 5ML PO TID, MAGIC MOUTHWASH TID, ACYCLOVIR TID, AND ZINC SULFATE 220MG PO BID, RESTORIL, THE POTASSIUM PROTOCOL (2) Hypoxia Status: Acute
[2020-10-18] MEDS: MELATONIN PO SCH (21:15)
[2020-10-18] MEDS: LIPITOR TAB 80 MG PO SCH (21:15)
[2020-10-18] MEDS: RESTORIL CAP 15 MG PO SCH (21:15)
[2020-10-18] MEDS: SINGULAIR TAB 10 MG PO SCH (21:15)
[2020-10-18] MEDS: SNACK - Diabetic Appropriate PO SCH (21:15)
[2020-10-19] MEDS: LEVAQUIN PREMIX IV 500 MG 500 MG/100 ML BAG IV SCH (01:48)
[2020-10-19] MEDS: NORCO 5/325 MG TAB PO PRN ×3 (01:49→22:23)
[2020-10-19] MEDS: ASCORBIC ACID INJ MULTI-DOSE VIAL 1,500 MG in NS 50 ML IV 50 ML IV SCH ×4 (03:13→21:00)
[2020-10-19] MEDS: SOLU-Medrol 125 MG VIAL IVP SCH ×4 (03:14→21:15)
[2020-10-19 05:05] LABS: BASOPHILS % (AUTO) 0.2 % (0.2-1.0); HEMATOCRIT 33.9 % (36.0-47.0); HEMOGLOBIN 11.5 g/dL (12.0-16.0); LYMPHOCYTES # (AUTO) 0.6 X10^3/uL (1.3-2.9); LYMPHOCYTES % (AUTO) 3.8 % (21.0-51.0); MEAN CORPUSCULAR HEMOGLOBIN 32.5 pg (27.0-34.0); MEAN CORPUSCULAR VOLUME 95.3 fL (80.0-100.0); MEAN PLATELET VOLUME 9.2 fL (7.4-11.0); MONOCYTES # (AUTO) 0.8 x10^3/uL (0.3-0.8); NEUTROPHILS # (AUTO) 14.3 x10^3/uL (2.2-4.8); PLATELET COUNT 173 X10^3/uL (150.0-450.0); RED BLOOD COUNT 3.55 X10^6/uL (3.5-5.4); RED CELL DISTRIBUTION WIDTH 13.6 % (11.6-16.5); WHITE BLOOD COUNT 15.8 X10^3/uL (3.6-10.0)
[2020-10-19 05:15] LABS: PREALBUMIN 25.5 mg/dL (18-35.7)
[2020-10-19 05:27] LABS: ALANINE AMINOTRANSFERASE 50 Units/L (12-78); ALKALINE PHOSPHATASE 126 Units/L (46-116); ASPARTATE AMINO TRANSFERASE 30 Units/L (15-37); BLOOD UREA NITROGEN 17 mg/dL (7-18); CALCIUM 7.8 mg/dL (8.5-10.1); CARBON DIOXIDE 30.8 mmol/L (21-32); CHLORIDE 103 mmol/L (98-107); COR CA(FOR HYPOALB) 9.4 mg/dL (8.5-10.1); COR NA(FOR HYPERGLY) 140 mmol/L (136-145); CREATININE 0.83 mg/dL (0.55-1.02); SODIUM 138 mmol/L (136-145); TOTAL PROTEIN 5.2 g/dL (6.4-8.2); eGFR NON BLACK RACES > 60 (>60)
[2020-10-19] MEDS: MAGIC MOUTHWASH PO SCH ×3 (05:36→22:01)
[2020-10-19] MEDS: XYLOCAINE OINT 5% 1 APPLIC, ZOVIRAX 1 APPLIC TOP SCH ×6 (05:37→21:59)
[2020-10-19] MEDS: TESSALON PERLES PO SCH ×3 (05:37→22:00)
[2020-10-19] MEDS: PERIACTIN TAB 4 MG PO SCH ×3 (05:38→22:00)
[2020-10-19] MEDS: NYSTATIN SUSP MT SCH ×3 (05:39→22:00)
[2020-10-19 05:54] LABS: PLATELET MORPHOLOGY COMMENT NORMAL (NORMAL)
[2020-10-19] MEDS: HumuLIN R SUBCUT PRN ×3 (06:03→22:07)
[2020-10-19] MEDS: K-DUR TAB 20 MEQ PO PRN (06:05)
[2020-10-19] MEDS: ACCUNEB 1.25 MG NEBULE NEB SCH ×3 (06:23→21:17)
[2020-10-19 06:24] LABS: ABG BASE EXCESS 6.6 mmol/L (-2.0-2.0)
[2020-10-19 06:25] LABS: ABG HCO3 30.5 mmol/L (22-26)
[2020-10-19 06:26] LABS: ABG ALLEN TEST POS
--- NOTE | 2020-10-19 07:56 | RAD ---
HISTORYSOBSTUDYCHEST, 1 [id number]/2021FINDINGSBilateral opacity in the lungs is more prominent in the lung bases co nsistent with pneumonia as seen on CT 10/07/2020. No change from yesterday.No pleural effusion or pne umothorax.Heart size is normal.Bones are unremarkable.EKG leads are noted.IMPRESSION1. Unchanged pneu moniaElectronically signed by: Jason Barber (Oct 19, 2020 07:54:38)
[2020-10-19] MEDS: BROVANA IN SCH ×2 (08:19→21:17)
[2020-10-19] MEDS: PULMICORT NEB TX 0.5 MG NEB SCH ×2 (08:19→21:17)
[2020-10-19] MEDS: LOVENOX INJ 80 MG SYR SC SCH ×2 (09:45→22:09)
[2020-10-19] MEDS: ZyrTEC TAB 10 MG PO SCH (09:45)
[2020-10-19] MEDS: VIBRAMYCIN 100 MG in D5W 250 ML IV 250 ML IV SCH ×2 (09:45→21:15)
[2020-10-19] MEDS: PEPCID TAB 40 MG PO SCH ×2 (09:45→21:15)
[2020-10-19] MEDS: PROTONIX TAB 40 MG PO SCH ×2 (09:45→21:15)
[2020-10-19] MEDS: ZINC SULFATE PO SCH (09:45)
[2020-10-19] MEDS: XANAX PO SCH ×3 (09:45→21:30)
[2020-10-19] MEDS: FLUVOXAMINE MALEATE PO SCH ×2 (09:45→21:15)
[2020-10-19] MEDS: VITAMIN D3 125 mcg (5,000 UNITS) PO SCH (09:45)
[2020-10-19] MEDS: THIAMINE HCL INJ IVP SCH ×2 (09:45→21:15)
[2020-10-19] MEDS: MORPHINE SULFATE INJ 2 MG INJ IVP PRN (14:20)
[2020-10-19] MEDS: NS 1000 ML 1,000 ML IV SCH (14:24)
[2020-10-19] MEDS: SNACK - Diabetic Appropriate PO SCH (21:00)
[2020-10-19] MEDS: RESTORIL CAP 15 MG PO SCH (21:15)
[2020-10-19] MEDS: MELATONIN PO SCH (21:15)
[2020-10-19] MEDS: SINGULAIR TAB 10 MG PO SCH (21:15)
[2020-10-19] MEDS: LIPITOR TAB 80 MG PO SCH (21:15)
[2020-10-20] MEDS: LEVAQUIN PREMIX IV 500 MG 500 MG/100 ML BAG IV SCH (00:54)
[2020-10-20] MEDS: MORPHINE SULFATE INJ 2 MG INJ IVP PRN ×3 (00:55→20:50)
[2020-10-20] MEDS: NS 1000 ML 1,000 ML IV SCH ×2 (00:58→15:49)
[2020-10-20] MEDS: ASCORBIC ACID INJ MULTI-DOSE VIAL 1,500 MG in NS 50 ML IV 50 ML IV SCH ×4 (03:04→20:55)
[2020-10-20] MEDS: NORCO 5/325 MG TAB PO PRN ×3 (03:05→21:20)
[2020-10-20] MEDS: SOLU-Medrol 125 MG VIAL IVP SCH ×4 (03:05→21:12)
[2020-10-20 05:30] LABS: ABG BASE EXCESS 5.6 mmol/L (-2.0-2.0); ABG HCO3 29.8 mmol/L (22-26)
[2020-10-20 05:32] LABS: ABG ALLEN TEST POS
[2020-10-20] MEDS: MAGIC MOUTHWASH PO SCH ×3 (05:40→21:20)
[2020-10-20] MEDS: NYSTATIN SUSP MT SCH ×3 (05:51→21:20)
[2020-10-20] MEDS: PERIACTIN TAB 4 MG PO SCH ×3 (05:52→21:15)
[2020-10-20] MEDS: XYLOCAINE OINT 5% 1 APPLIC, ZOVIRAX 1 APPLIC TOP SCH ×6 (05:53→21:22)
[2020-10-20] MEDS: TESSALON PERLES PO SCH ×3 (05:53→21:09)
[2020-10-20] MEDS: HumuLIN R SUBCUT PRN ×4 (05:55→21:17)
[2020-10-20] MEDS: ACCUNEB 1.25 MG NEBULE NEB SCH ×3 (06:00→20:55)
[2020-10-20 06:31] LABS: BASOPHILS % (AUTO) 0.1 % (0.2-1.0); HEMOGLOBIN 11.5 g/dL (12.0-16.0); LYMPHOCYTES # (AUTO) 0.6 X10^3/uL (1.3-2.9); LYMPHOCYTES % (AUTO) 4.1 % (21.0-51.0); MEAN CORPUSCULAR HEMOGLOBIN 32.6 pg (27.0-34.0); MEAN CORPUSCULAR HGB CONC 33.8 g/dL (33.0-35.0); MEAN CORPUSCULAR VOLUME 96.6 fL (80.0-100.0); MEAN PLATELET VOLUME 9.7 fL (7.4-11.0); MONOCYTES # (AUTO) 0.8 x10^3/uL (0.3-0.8); MONOCYTES % (AUTO) 5.5 % (0.0-13.0); NEUTROPHILS # (AUTO) 13.3 x10^3/uL (2.2-4.8); NEUTROPHILS % (AUTO) 90.3 % (42.0-75.0); PLATELET COUNT 150 X10^3/uL (150.0-450.0); RED BLOOD COUNT 3.52 X10^6/uL (3.5-5.4); RED CELL DISTRIBUTION WIDTH 13.6 % (11.6-16.5); WHITE BLOOD COUNT 14.8 X10^3/uL (3.6-10.0)
[2020-10-20 06:48] LABS: ALANINE AMINOTRANSFERASE 53 Units/L (12-78); ALBUMIN 2.1 g/dL (3.4-5.0); ALKALINE PHOSPHATASE 136 Units/L (46-116); ASPARTATE AMINO TRANSFERASE 32 Units/L (15-37); BLOOD UREA NITROGEN 16 mg/dL (7-18); CALCIUM 7.9 mg/dL (8.5-10.1); CARBON DIOXIDE 28.1 mmol/L (21-32); CHLORIDE 102 mmol/L (98-107); COR CA(FOR HYPOALB) 9.4 mg/dL (8.5-10.1); COR NA(FOR HYPERGLY) 140 mmol/L (136-145); SODIUM 137 mmol/L (136-145); TOTAL PROTEIN 5.3 g/dL (6.4-8.2); eGFR NON BLACK RACES > 60 (>60)
--- NOTE | 2020-10-20 07:39 | RAD ---
HISTORYSOBSTUDYAP [id number]/10/2021FINDINGSThere is no significant change in appearance of the chest. Stable heart size and contour with persistent bilateral lower lobe airspace involvement. The upper lobes remain relatively clear and uninvolved.IMPRESSIONNo significant change in appearance of the bilateral pneumonia.Electronically signed by: ROSA HSU (Oct 20, 2020 07:37:38)
[2020-10-20] MEDS: BROVANA IN SCH ×2 (08:47→20:55)
[2020-10-20] MEDS: PULMICORT NEB TX 0.5 MG NEB SCH ×2 (08:47→20:55)
[2020-10-20] MEDS: ZyrTEC TAB 10 MG PO SCH (09:28)
[2020-10-20] MEDS: FLUVOXAMINE MALEATE PO SCH ×2 (09:28→21:02)
[2020-10-20] MEDS: VIBRAMYCIN 100 MG in D5W 250 ML IV 250 ML IV SCH ×2 (09:28→21:18)
[2020-10-20] MEDS: THIAMINE HCL INJ IVP SCH ×2 (09:29→21:05)
[2020-10-20] MEDS: PEPCID TAB 40 MG PO SCH ×2 (09:29→21:10)
[2020-10-20] MEDS: PROTONIX TAB 40 MG PO SCH ×2 (09:29→21:10)
[2020-10-20] MEDS: LOVENOX INJ 80 MG SYR SC SCH ×2 (09:29→21:17)
[2020-10-20] MEDS: VITAMIN D3 125 mcg (5,000 UNITS) PO SCH (09:30)
[2020-10-20] MEDS: XANAX PO SCH ×3 (09:30→21:10)
[2020-10-20] MEDS: ZINC SULFATE PO SCH (09:30)
[2020-10-20 10:12] LABS: PLATELET MORPHOLOGY COMMENT NORMAL (NORMAL)
[2020-10-20] MEDS: LIPITOR TAB 80 MG PO SCH (21:02)
[2020-10-20] MEDS: RESTORIL CAP 15 MG PO SCH (21:09)
[2020-10-20] MEDS: MELATONIN PO SCH (21:10)
[2020-10-20] MEDS: SINGULAIR TAB 10 MG PO SCH (21:20)
[2020-10-21] MEDS: ASCORBIC ACID INJ MULTI-DOSE VIAL 1,500 MG in NS 50 ML IV 50 ML IV SCH ×4 (02:00→21:40)
[2020-10-21] MEDS: MORPHINE SULFATE INJ 2 MG INJ IVP PRN ×2 (02:00→15:44)
[2020-10-21] MEDS: SOLU-Medrol 125 MG VIAL IVP SCH ×4 (02:00→22:11)
[2020-10-21] MEDS: SNACK - Diabetic Appropriate PO SCH ×2 (02:30→20:48)
[2020-10-21] MEDS: NS 1000 ML 1,000 ML IV SCH ×3 (02:32→18:46)
[2020-10-21] MEDS: LEVAQUIN PREMIX IV 500 MG 500 MG/100 ML BAG IV SCH (03:00)
[2020-10-21 05:42] LABS: BASOPHILS % (AUTO) 0.1 % (0.2-1.0); EOSINOPHILS % (AUTO) 0.1 % (0.9-2.9); HEMATOCRIT 33.3 % (36.0-47.0); HEMOGLOBIN 11.4 g/dL (12.0-16.0); LYMPHOCYTES # (AUTO) 0.3 X10^3/uL (1.3-2.9); LYMPHOCYTES % (AUTO) 2.7 % (21.0-51.0); MEAN CORPUSCULAR HEMOGLOBIN 32.6 pg (27.0-34.0); MEAN CORPUSCULAR HGB CONC 34.2 g/dL (33.0-35.0); MEAN CORPUSCULAR VOLUME 95.3 fL (80.0-100.0); MEAN PLATELET VOLUME 9.8 fL (7.4-11.0); MONOCYTES # (AUTO) 0.5 x10^3/uL (0.3-0.8); MONOCYTES % (AUTO) 4.4 % (0.0-13.0); NEUTROPHILS # (AUTO) 11.4 x10^3/uL (2.2-4.8); NEUTROPHILS % (AUTO) 92.7 % (42.0-75.0); PLATELET COUNT 123 X10^3/uL (150.0-450.0); RED CELL DISTRIBUTION WIDTH 13.5 % (11.6-16.5); WHITE BLOOD COUNT 12.3 X10^3/uL (3.6-10.0)
[2020-10-21 06:00] LABS: ALANINE AMINOTRANSFERASE 52 Units/L (12-78); ALBUMIN 2.2 g/dL (3.4-5.0); ALKALINE PHOSPHATASE 136 Units/L (46-116); ASPARTATE AMINO TRANSFERASE 27 Units/L (15-37); BLOOD UREA NITROGEN 15 mg/dL (7-18); CALCIUM 8.1 mg/dL (8.5-10.1); CARBON DIOXIDE 29.1 mmol/L (21-32); CHLORIDE 101 mmol/L (98-107); COR CA(FOR HYPOALB) 9.5 mg/dL (8.5-10.1); COR NA(FOR HYPERGLY) 140 mmol/L (136-145); CREATININE 0.76 mg/dL (0.55-1.02); SODIUM 136 mmol/L (136-145); TOTAL PROTEIN 5.4 g/dL (6.4-8.2); eGFR NON BLACK RACES > 60 (>60)
[2020-10-21] MEDS: MAGIC MOUTHWASH PO SCH ×3 (06:13→22:25)
[2020-10-21] MEDS: XYLOCAINE OINT 5% 1 APPLIC, ZOVIRAX 1 APPLIC TOP SCH ×6 (06:14→22:25)
[2020-10-21] MEDS: PERIACTIN TAB 4 MG PO SCH ×3 (06:14→22:25)
[2020-10-21] MEDS: NYSTATIN SUSP MT SCH ×3 (06:14→22:25)
[2020-10-21] MEDS: TESSALON PERLES PO SCH ×3 (06:14→21:55)
[2020-10-21] MEDS: NORCO 5/325 MG TAB PO PRN ×2 (06:15→22:00)
[2020-10-21] MEDS: HumuLIN R SUBCUT PRN ×4 (06:16→21:20)
[2020-10-21 06:39] LABS: PLATELET MORPHOLOGY COMMENT NORMAL (NORMAL)
[2020-10-21 07:04] LABS: ABG BASE EXCESS 7.4 mmol/L (-2.0-2.0)
[2020-10-21 07:06] LABS: ABG HCO3 31.2 mmol/L (22-26)
[2020-10-21 07:07] LABS: ABG ALLEN TEST POS
--- NOTE | 2020-10-21 07:46 | RAD ---
HISTORYSOBSTUDYPortable AP [id number]/2021FINDINGSContinued normal heart size with similar appearance of bibasal airsp jose carlos disease. No new consolidation, pneumothorax or large pleural effusion is evident.IMPRESSIONNo pamela xiong.Electronically signed by: ROSA HSU (Oct 21, 2020 07:43:42)
[2020-10-21] MEDS: PULMICORT NEB TX 0.5 MG NEB SCH ×2 (08:56→21:00)
[2020-10-21] MEDS: BROVANA IN SCH ×2 (08:56→21:00)
[2020-10-21] MEDS: VIBRAMYCIN 100 MG in D5W 250 ML IV 250 ML IV SCH ×2 (09:02→22:15)
[2020-10-21] MEDS: FLUVOXAMINE MALEATE PO SCH ×2 (09:04→22:15)
[2020-10-21] MEDS: LOVENOX INJ 80 MG SYR SC SCH ×2 (09:04→21:42)
[2020-10-21] MEDS: VITAMIN D3 125 mcg (5,000 UNITS) PO SCH (09:04)
[2020-10-21] MEDS: PEPCID TAB 40 MG PO SCH ×2 (09:04→22:15)
[2020-10-21] MEDS: THIAMINE HCL INJ IVP SCH ×2 (09:05→22:10)
[2020-10-21] MEDS: ZINC SULFATE PO SCH (09:05)
[2020-10-21] MEDS: XANAX PO SCH ×3 (09:05→22:00)
[2020-10-21] MEDS: PROTONIX TAB 40 MG PO SCH ×2 (09:05→21:55)
[2020-10-21] MEDS: ZyrTEC TAB 10 MG PO SCH (09:06)
[2020-10-21] MEDS ORDERED: LASIX IVP ONE (10:40)
[2020-10-21] MEDS: ACCUNEB 1.25 MG NEBULE NEB SCH ×3 (11:12→21:00)
--- NOTE | 2020-10-21 12:14 | PCM.PROG ---
Progress Note - Progress Note for Day of Date of Exam: 10/19/20 - Subjective Subjective: MS. RICHARDS WAS ADMITTED FOR TREATMENT OF COVID PNEUMONIA AND HYPOXIA. SHE RECEIVED [facility] INFUSION IN [place], [place] ON 10/05/20. TODAY, SHE IS ALERT AND ORIENTED, LYING IN THE BED ON MORNING ROUNDS. SHE IS CURRENTLY UTILIZING THE BIPAP WITH FI02 AT 100%. SATURATIONS HAVE BEEN 85-89% THIS MONRING AND THROUGHOUT THE NIGHT WHILE ON THE BIPAP. SHE DENIES SIGNIFICANT IMPROVEMENT IN SYMPTOMS. ON EXAMINATION, HEART IS REGULAR IN RATE AND RHYTHM. BILATERAL LUNGS ARE NOTED WITH RALES THROUGHOUT. ABDOMEN IS ROUND, SOFT, AND NON-TENDER WITH NORMAL BOWEL SOUNDS NOTED IN ALL QUADRANTS. HIS VITALS THIS MORNING ARE: 97.5-68-22-88%-135/78. LABS WERE OBTAINED. ABNORMAL LAB VALUES INCLUDE THE FOL LOWING: WBC 15.8, HGB 11.5, HCT 33.9, GLUCOSE 203, CALCIUM 7.8, TOTAL BILI 1.20, ALK PHOS 126, TOTAL PROTEIN 5.2, ALBUMIN 2.0. ABG REVEALED: PH 7.490, PC02 40, P02 53, HC03 30.5, 02 SAT 90, A-A GRADIENT 610, FI02 100. A CHEST XRAY WAS OBTAINED AND REVEALED: 1. Unchanged pneumonia. SHE IS CURRENTLY RECEIVING NS AT 20 ML/HR, LEVAQUIN 500MG IV DAILY, IV DOXYCYCLINE 100MG BID, ASCORBIC ACID 1500MG IV Q6H, ALBUTEROL NEBS QID, PULMICORT NEBS BID, SOLU-MEDROL 125MG IV6H, XANAX 0.5MG PO BID PRN, IV MORPHINE 2MG Q6H PRN, FLUVOXAMINE 50MG PO BID, CYPROHEPTADINE 8MG PO TID, ZOFRAN 4MG IV Q8H PRN, NYSTATIN SUSP 5ML PO TID, MAGIC MOUTHWASH TID, ACYCLOVIR TID, LOVENOX 85MG SC Q12H, LIPITOR 80MG PO HS, TE SSALON PERLES 200MG PO TID, CETIRIZINE 10MG PO DAILY, XANAX 0.5MG PO GID, PEPCID 40MG PO BID, ROBITUSSIN DM 10ML PO QID PRN, HUMULIN R SLIDING SCALE, SINGULAIR 10MG PO HS, PROTONIX 40MG PO BID, THIAMINE 200MG IV BID, AND ZINC SULFATE 220MG PO BID, RESTORIL, THE POTASSIUM PROTOCOL. SHE HAS FINISHED A 5 DOSE COURSE OF REMDESIVIR. WE WILL CONTINUE WITH CURRENT PLAN OF CARE TODAY AND ATTEMPT TO WEAN DOWN OXYGEN SHE TOLERATES IT. WE WILL FOLLOW UP WITH AM LABS, CHEST XRAY, ABG, AND CONTINUE TO MONITOR. TIME SPENT ON CLINICAL ASSESSMENT, REVIEWING LABS AND IMAGING, DECISION MAKING, AND DOCUMENTATION GREATER THAN 45 MINUTES. - Past Medical Family Social History Past Med/Fam/Surg Hx: No changes since H&P Allergies: Allergies ibuprofen Adverse Reaction (Verified 10/06/20 20:57) abd pain - Review of Systems ROS: No change since H&P - Vital Signs and I&O's Vital Signs: Temperature 97.6 F Pulse Rate [Apical] 71 Pulse Rate [Left] 81 Pulse Rate 75 Respiratory Rate 19 Blood Pressure [Right Arm] 117/65 Blood Pressure [Left Arm] 147/90 Blood Pressure 126/71 O2 Sat by Pulse Oximetry 89 Intake and Output: Intake & Output 10/19/20 10/20/20 10/21/20 10/22/20 11:59 11:59 11:59 11:59 Intake Total 2161 / 2161 2350 / 2350 2020 Output Total 400 / 400 Balance 1761 / 1761 2349 / 0 2020 - Physical Exam Oriented: Normal Eyes: Normal Ear: Normal Nose: Normal Throat: Normal Respiratory: Generalized, Diminished, Rales Cardiovascular: Normal : Normal Auscultation: Bowel Sounds: Normal Palpation: Normal Tenderness: Normal Skin: Normal Musculoskeletal: Normal Psychiatric: Normal Mood Description: Anxious Affect: Anxious Speech Pattern: Clear, Appropriate - Laboratory and Diagnostics Result Diagrams: 10/21/20 04:48 10/21/20 04:48 Labs: 10/07/20 11:51 Blood Blood Culture - Final 10/07/20 11:49 Blood Blood Culture - Final Laboratory WBC 12.3 X10^3/uL (3.6-10.0) H 10/21/20 04:48 RBC 3.50 X10^6/uL (3.5-5.4) 10/21/20 04:48 Hgb 11.4 g/dL (12.0-16.0) L 10/21/20 04:48 Hct 33.3 % (36.0-47.0) L 10/21/20 04:48 MCV 95.3 fL (80.0-100.0) 10/21/20 04:48 MCH 32.6 pg (27.0-34.0) 10/21/20 04:48 MCHC 34.2 g/dL (33.0-35.0) 10/21/20 04:48 RDW 13.5 % (11.6-16.5) 10/21/20 04:48 Plt Count 123 X10^3/uL (150.0-450.0) L 10/21/20 04:48 Plt Count Comment Decreased (ADEQUATE) A 10/21/20 04:48 MPV 9.8 fL (7.4-11.0) 10/21/20 04:48 Neut % (Auto) 92.7 % (42.0-75.0) H 10/21/20 04:48 Lymph % (Auto) 2.7 % (21.0-51.0) L 10/21/20 04:48 [place] % (Auto) 4.4 % (0.0-13.0) 10/21/20 04:48 Eos % (Auto) 0.1 % (0.9-2.9) L 10/21/20 04:48 Baso % (Auto) 0.1 % (0.2-1.0) L 10/21/20 04:48 Neut # (Auto) 11.4 x10^3/uL (2.2-4.8) H 10/21/20 04:48 Lymph # (Auto) 0.3 X10^3/uL (1.3-2.9) L 10/21/20 04:48 [place] # (Auto) 0.5 x10^3/uL (0.3-0.8) 10/21/20 04:48 Eos # (Auto) 0.0 x10^3/uL (0.0-0.2) 10/21/20 04:48 Baso # (Auto) 0.0 X10^3/uL (0.0-0.1) 10/21/20 04:48 Absolute Nucleated RBC 0.1 /100WBC 10/21/20 04:48 Total Counted 100 10/21/20 04:48 Neutrophils % (Manual) 96 % (39-76) H 10/21/20 04:48 Lymphocytes % (Manual) 2 % (13-43) L 10/21/20 04:48 Monocytes % (Manual) 2 % (4-9) L 10/21/20 04:48 Plt Morphology Comment Normal (NORMAL) 10/21/20 04:48 RBC Morphology Normal (NORMAL) 10/21/20 04:48 D-Dimer 0.40 ug/ml (0.0-0.57) 10/12/20 05:33 Sample Site R rad 10/21/20 07:00 ABG pH 7.500 (7.35-7.45) H 10/21/20 07:00 ABG pCO2 40.0 mmHg (35.0-45.0) 10/21/20 07:00 ABG pO2 50.0 mmHg (80.0-100.0) L 10/21/20 07:00 ABG HCO3 31.2 mmol/L (22-26) H* 10/21/20 07:00 ABG O2 Saturation 88.0 % (90-100) L 10/21/20 07:00 ABG Base Excess 7.4 mmol/L (-2.0-2.0) H 10/21/20 07:00 Loyd Test Pos 10/21/20 07:00 A-a Gradient 613.0 mmHg 10/21/20 07:00 FiO2 100.0 10/21/20 07:00 Blood Gas Comments Coby well kb 10/21/20 07:00 Sodium 136 mmol/L (136-145) 10/21/20 04:48 Corrected Sodium 140 mmol/L (136-145) 10/21/20 04:48 Potassium 3.9 mmol/L (3.5-5.1) 10/21/20 04:48 Chloride 101 mmol/L (98-107) 10/21/20 04:48 Carbon Dioxide 29.1 mmol/L (21-32) 10/21/20 04:48 BUN 15 mg/dL (7-18) 10/21/20 04:48 Creatinine 0.76 mg/dL (0.55-1.02) 10/21/20 04:48 Est GFR (MDRD) Af Amer > 60 (>60) 10/21/20 04:48 Est GFR (MDRD) Non-Af > 60 (>60) 10/21/20 04:48 Glucose 267 mg/dL (65-99) H 10/21/20 04:48 POC Glucose (mg/dL) 275 mg/dL (65-99) H 10/21/20 05:33 Calcium 8.1 mg/dL (8.5-10.1) L 10/21/20 04:48 Corrected Calcium 9.5 mg/dL (8.5-10.1) 10/21/20 04:48 Magnesium 2.4 mg/dL (1.7-2.9) 10/16/20 04:15 Ferritin 531 ng/mL (8-252) H 10/12/20 05:33 Total Bilirubin 1.30 mg/dL (0.2-1.0) H 10/21/20 04:48 AST 27 Units/L (15-37) 10/21/20 04:48 ALT 52 Units/L (12-78) 10/21/20 04:48 Alkaline Phosphatase 136 Units/L (46-116) H 10/21/20 04:48 Creatine Kinase 180 Units/L (26-192) 10/07/20 11:49 CK-MB (CK-2) < 1.0 ng/mL (0-4.0) 10/07/20 11:49 CK/CKMB % Calc 0.6 % (<4) 10/07/20 11:49 Troponin I < 0.02 ng/mL (0-1.5) 10/07/20 11:49 C-Reactive Protein 0.60 mg/L (0-3.0) 10/21/20 04:48 B-Natriuretic Peptide 108 pg/mL (0-79) H 10/12/20 05:33 Total Protein 5.4 g/dL (6.4-8.2) L 10/21/20 04:48 Albumin 2.2 g/dL (3.4-5.0) L 10/21/20 04:48 Globulin 3.2 g/dL (2.5-4.5) 10/21/20 04:48 Albumin/Globulin Ratio 0.7 Ratio (1.1-2.1) L 10/21/20 04:48 Prealbumin 25.5 mg/dL (18-35.7) 10/19/20 04:05 - Plan (1) Pneumonia due to COVID-19 virus Status: Acute Plan: SUPPLEMENTAL OXYGEN, NS AT 20 ML/HR, LEVAQUIN 500MG IV DAILY, IV DOXYCYCLINE 100MG BID, ASCORBIC ACID 1500MG IV Q6H, ALBUTEROL NEBS QID, PULMICORT NEBS BID, SOLU-MEDROL 125MG IV6H, XANAX 0.5MG PO BID PRN, IV MORPHINE 2MG Q6H PRN, FLUVOXAMINE 50MG PO BID, CYPROHEPTADINE 8MG PO TID, ZOFRAN 4MG IV Q8H PRN, LOVENOX 85MG SC Q12H, LIPITOR 80MG PO HS, TESSALON PERLES 200MG PO TID, CETIRIZINE 10MG PO DAILY, XANAX 0.5MG PO GID, PEPCID 40MG PO BID, ROBITUSSIN DM 10ML PO QID PRN, HUMULIN R SLIDING SCALE, SINGULAIR 10MG PO HS, PROTONIX 40MG PO BID, THIAMINE 200MG IV BID, NYSTATIN SUSP 5ML PO TID, MAGIC MOUTHWASH TID, ACYCLOVIR TID, AND ZINC SULFATE 220MG PO BID, RESTORIL, THE POTASSIUM PROTOCOL (2) Hypoxia Status: Acute
[2020-10-21] MEDS: TUSSIONEX PENNKINETIC SUSP PO PRN (15:45)
[2020-10-21] MEDS: ROBITUSSIN DM PO PRN (21:55)
[2020-10-21] MEDS: RESTORIL CAP 15 MG PO SCH (22:00)
[2020-10-21] MEDS: LIPITOR TAB 80 MG PO SCH (22:11)
[2020-10-21] MEDS: SINGULAIR TAB 10 MG PO SCH (22:11)
[2020-10-21] MEDS: MELATONIN PO SCH (22:15)
[2020-10-22] MEDS: ASCORBIC ACID INJ MULTI-DOSE VIAL 1,500 MG in NS 50 ML IV 50 ML IV SCH ×4 (03:25→21:00)
[2020-10-22] MEDS: SOLU-Medrol 125 MG VIAL IVP SCH ×4 (03:28→21:00)
[2020-10-22] MEDS: LEVAQUIN PREMIX IV 500 MG 500 MG/100 ML BAG IV SCH (03:55)
[2020-10-22] MEDS: NS 1000 ML 1,000 ML IV SCH (04:25)
[2020-10-22 05:02] LABS: BASOPHILS % (AUTO) 0.1 % (0.2-1.0); HEMATOCRIT 33.6 % (36.0-47.0); HEMOGLOBIN 11.5 g/dL (12.0-16.0); LYMPHOCYTES # (AUTO) 0.4 X10^3/uL (1.3-2.9); LYMPHOCYTES % (AUTO) 2.8 % (21.0-51.0); MEAN CORPUSCULAR HEMOGLOBIN 32.6 pg (27.0-34.0); MEAN CORPUSCULAR HGB CONC 34.3 g/dL (33.0-35.0); MEAN CORPUSCULAR VOLUME 95.1 fL (80.0-100.0); MONOCYTES # (AUTO) 0.7 x10^3/uL (0.3-0.8); NEUTROPHILS % (AUTO) 92.1 % (42.0-75.0); PLATELET COUNT 115 X10^3/uL (150.0-450.0); RED BLOOD COUNT 3.53 X10^6/uL (3.5-5.4); RED CELL DISTRIBUTION WIDTH 13.6 % (11.6-16.5); WHITE BLOOD COUNT 13.1 X10^3/uL (3.6-10.0)
[2020-10-22 05:13] LABS: ABG BASE EXCESS 8.5 mmol/L (-2.0-2.0)
[2020-10-22 05:14] LABS: ABG ALLEN TEST POS; ABG HCO3 32.8 mmol/L (22-26)
[2020-10-22 05:16] LABS: ALANINE AMINOTRANSFERASE 53 Units/L (12-78); ALBUMIN 2.3 g/dL (3.4-5.0); ALKALINE PHOSPHATASE 135 Units/L (46-116); ASPARTATE AMINO TRANSFERASE 31 Units/L (15-37); BLOOD UREA NITROGEN 17 mg/dL (7-18); CALCIUM 8.1 mg/dL (8.5-10.1); CARBON DIOXIDE 33.4 mmol/L (21-32); CHLORIDE 99 mmol/L (98-107); COR CA(FOR HYPOALB) 9.5 mg/dL (8.5-10.1); COR NA(FOR HYPERGLY) 143 mmol/L (136-145); CREATININE 0.83 mg/dL (0.55-1.02); SODIUM 138 mmol/L (136-145); TOTAL PROTEIN 5.6 g/dL (6.4-8.2); eGFR NON BLACK RACES > 60 (>60)
[2020-10-22 05:38] LABS: BAND NEUTROPHILS % 2 % (0-10); PLATELET MORPHOLOGY COMMENT NORMAL (NORMAL)
[2020-10-22] MEDS: NYSTATIN SUSP MT SCH ×4 (06:07→22:24)
[2020-10-22] MEDS: MAGIC MOUTHWASH PO SCH ×3 (06:07→22:24)
[2020-10-22] MEDS: PERIACTIN TAB 4 MG PO SCH (06:08)
[2020-10-22] MEDS: XYLOCAINE OINT 5% 1 APPLIC, ZOVIRAX 1 APPLIC TOP SCH ×6 (06:08→22:22)
[2020-10-22] MEDS: TESSALON PERLES PO SCH ×3 (06:08→22:23)
[2020-10-22] MEDS: HumuLIN R SUBCUT PRN ×4 (06:10→22:28)
[2020-10-22] MEDS: ACCUNEB 1.25 MG NEBULE NEB SCH ×3 (06:19→21:11)
--- NOTE | 2020-10-22 07:56 | RAD ---
HISTORYCOVID-19STUDYPortable AP [id number]/2021FINDINGSStable normal heart size. There is no change in extent or distribution of bilateral airspace disease primarily involving the lower lobes. The upper lobes remain relatively clear. No pleural fluid or pneumothorax seen.IMPRESSIONNo change in appearance of bilateral pneumonia.Electronically signed by: ROSA HSU (Oct 22, 2020 07:55:02)
[2020-10-22] MEDS: VIBRAMYCIN 100 MG in D5W 250 ML IV 250 ML IV SCH ×2 (08:42→21:00)
[2020-10-22] MEDS: PROTONIX INJ 40 MG VIAL IVP SCH (08:42)
[2020-10-22] MEDS: THIAMINE HCL INJ IVP SCH ×2 (08:42→21:00)
[2020-10-22] MEDS: XANAX PO SCH ×3 (08:43→21:00)
[2020-10-22] MEDS: VITAMIN D3 125 mcg (5,000 UNITS) PO SCH (08:43)
[2020-10-22] MEDS: PULMICORT NEB TX 0.5 MG NEB SCH ×2 (08:54→21:11)
[2020-10-22] MEDS: BROVANA IN SCH ×2 (08:54→21:11)
[2020-10-22] MEDS ORDERED: XYLOCAINE VISCOUS ONE (13:25)
[2020-10-22] MEDS: MORPHINE SULFATE INJ 2 MG INJ IVP PRN (13:29)
[2020-10-22] MEDS: SNACK - Diabetic Appropriate PO SCH (20:58)
[2020-10-22] MEDS: RESTORIL CAP 15 MG PO SCH (21:00)
[2020-10-22] MEDS: MICRO K EXTEN CAP 10 MEQ PO PRN (22:00)
[2020-10-23] MEDS: MORPHINE SULFATE INJ 2 MG INJ IVP PRN ×4 (01:30→15:50)
[2020-10-23] MEDS: ASCORBIC ACID INJ MULTI-DOSE VIAL 1,500 MG in NS 50 ML IV 50 ML IV SCH ×4 (03:05→21:30)
[2020-10-23] MEDS: SOLU-Medrol 125 MG VIAL IVP SCH ×4 (03:05→21:30)
[2020-10-23] MEDS: LEVAQUIN PREMIX IV 500 MG 500 MG/100 ML BAG IV SCH (03:33)
[2020-10-23 05:09] LABS: ABG BASE EXCESS 10.4 mmol/L (-2.0-2.0)
[2020-10-23 05:11] LABS: ABG ALLEN TEST POS; ABG HCO3 32.8 mmol/L (22-26)
[2020-10-23 05:15] LABS: BASOPHILS % (AUTO) 0.3 % (0.2-1.0); HEMOGLOBIN 11.9 g/dL (12.0-16.0); LYMPHOCYTES # (AUTO) 0.3 X10^3/uL (1.3-2.9); LYMPHOCYTES % (AUTO) 2.2 % (21.0-51.0); MEAN CORPUSCULAR HGB CONC 34.9 g/dL (33.0-35.0); MEAN CORPUSCULAR VOLUME 94.5 fL (80.0-100.0); MEAN PLATELET VOLUME 9.6 fL (7.4-11.0); MONOCYTES # (AUTO) 0.6 x10^3/uL (0.3-0.8); NEUTROPHILS # (AUTO) 11.4 x10^3/uL (2.2-4.8); NEUTROPHILS % (AUTO) 92.5 % (42.0-75.0); PLATELET COUNT 103 X10^3/uL (150.0-450.0); RED CELL DISTRIBUTION WIDTH 13.2 % (11.6-16.5); WHITE BLOOD COUNT 12.3 X10^3/uL (3.6-10.0)
[2020-10-23 05:27] LABS: ALANINE AMINOTRANSFERASE 49 Units/L (12-78); ALBUMIN 2.3 g/dL (3.4-5.0); ALKALINE PHOSPHATASE 127 Units/L (46-116); ASPARTATE AMINO TRANSFERASE 32 Units/L (15-37); BLOOD UREA NITROGEN 15 mg/dL (7-18); CARBON DIOXIDE 31.2 mmol/L (21-32); CHLORIDE 101 mmol/L (98-107); COR CA(FOR HYPOALB) 9.4 mg/dL (8.5-10.1); COR NA(FOR HYPERGLY) 141 mmol/L (136-145); CREATININE 0.78 mg/dL (0.55-1.02); SODIUM 138 mmol/L (136-145); TOTAL PROTEIN 5.5 g/dL (6.4-8.2); eGFR NON BLACK RACES > 60 (>60)
[2020-10-23 05:42] LABS: PLATELET MORPHOLOGY COMMENT NORMAL (NORMAL)
[2020-10-23] MEDS: ACCUNEB 1.25 MG NEBULE NEB SCH ×3 (06:04→20:55)
[2020-10-23] MEDS: NS 1000 ML 1,000 ML IV SCH ×3 (06:06→18:44)
[2020-10-23] MEDS: MAGIC MOUTHWASH PO SCH ×3 (06:07→22:46)
[2020-10-23] MEDS: NYSTATIN SUSP MT SCH ×3 (06:09→21:30)
[2020-10-23] MEDS: XYLOCAINE OINT 5% 1 APPLIC, ZOVIRAX 1 APPLIC TOP SCH ×2 (06:09)
[2020-10-23] MEDS: TESSALON PERLES PO SCH ×3 (06:10→21:30)
[2020-10-23] MEDS: HumuLIN R SUBCUT PRN ×4 (06:11→22:42)
[2020-10-23] MEDS: PROTONIX INJ 40 MG VIAL IVP SCH (08:43)
[2020-10-23] MEDS: VITAMIN D3 125 mcg (5,000 UNITS) PO SCH (08:45)
[2020-10-23] MEDS: XANAX PO SCH ×3 (08:45→21:30)
[2020-10-23] MEDS: THIAMINE HCL INJ IVP SCH ×2 (08:45→21:30)
[2020-10-23] MEDS: VIBRAMYCIN 100 MG in D5W 250 ML IV 250 ML IV SCH ×2 (08:45→21:45)
[2020-10-23] MEDS: PULMICORT NEB TX 0.5 MG NEB SCH ×2 (09:10→20:55)
[2020-10-23] MEDS: BROVANA IN SCH ×2 (09:10→20:55)
--- NOTE | 2020-10-23 10:25 | PCM.PROG ---
Progress Note - Progress Note for Day of Date of Exam: 10/22/20 - Subjective Subjective: MS. RICHARDS WAS ADMITTED FOR TREATMENT OF COVID PNEUMONIA AND HYPOXIA. SHE RECEIVED [facility]OV INFUSION IN [place], [place] ON 10/05/20. TODAY, SHE IS ALERT AND ORIENTED, LYING IN THE BED ON MORNING ROUNDS. SHE IS CURRENTLY UTILIZING THE BIPAP WITH FI02 AT 100%. SATURATIONS HAVE BEEN 85-89% THIS MONRING AND THROUGHOUT THE NIGHT WHILE ON THE BIPAP. SHE DENIES SIGNIFICANT IMPROVEMENT IN SYMPTOMS. ON EXAMINATION, THERE IS WHAT APPEARS TO BE A VIRAL ULCER TO THE UPPER LIP. AREA IS BLACKENED AND SCABBED OVER NOW. HEART IS REGULAR IN RATE AND RHYTHM. BILATERAL LUNGS ARE NOTED WITH RALES THROUGHOUT. ABDOMEN IS ROUND, SOFT, AND NON-TENDER WITH NORMAL BOWEL SOUNDS NOTED IN ALL QUADRANTS. HIS VITALS THIS MORNING ARE: 97.5-07-64-90-111/70. LABS WERE OBTAINED. ABNORMAL LAB VALUES INCLUDE THE FOLLOWING: WBC 13.1, HGB 11.5, HCT 33.6, PLT COUNT 115, CARBON DIOXIDE 33.4, GLUCOSE 297, CALCIUM 8.1, TOTAL BILI 1.30, ALK PHOS 135, TOTAL PROTEIN 5.6, ALBUMIN 2.3. BLOOD CULTURES ARE PENDING. ABG REVEALED: PH 7.490, PC02 43, P02 59, HC03 32.8, 02 SAT 92, A-A GRADIENT 600, FI02 100. A CHEST XRAY WAS OBTAINED AND REVEALED: No change in appearance of bilateral pneumonia. SHE IS CURRENTLY RECEIVING NS AT 20 ML/HR, LEVAQUIN 500MG IV DAILY, IV DOXYCYCLINE 100MG BID, ASCORBIC ACID 1500MG IV Q6H, ALBUTEROL NEBS QID, PULMICORT NEBS BID, SOLU-MEDROL 125MG IV6H, XANAX 0.5MG PO BID PRN, IV MORPHINE 2MG Q6H PRN, FLUVOXAMINE 50MG PO BID, CYPROHEPTADINE 8MG PO TID, ZOFRAN 4MG IV Q8H PRN, NYSTATIN SUSP 5ML PO TID, MAGIC MOUTHWASH TID, ACYCLOVIR OINTMENT TID, LOVENOX 85MG SC Q12H, LIPITOR 80MG PO HS, TESSALON PERLES 200MG PO TID, CETIRIZINE 10MG PO DAILY, XANAX 0.5MG PO GID, PEPCID 40MG PO BID, ROBITUSSIN DM 10ML PO QID PRN, HUMULIN R SLIDING SCALE, SINGULAIR 10MG PO HS, PROTONIX 40MG PO BID, THIAMINE 2 00MG IV BID, AND ZINC SULFATE 220MG PO BID, RESTORIL, THE POTASSIUM PROTOCOL. SHE HAS FINISHED A 5 DOSE COURSE OF REMDESIVIR. WE WILL CONTINUE WITH CURRENT PLAN OF CARE TODAY AND ATTEMPT TO WEAN DOWN OXYGEN SHE TOLERATES IT. WE WILL FOLLOW UP WITH AM LABS, CHEST XRAY, ABG, AND CONTINUE TO MONITOR. TIME SPENT ON CLINICAL ASSESSMENT, REVIEWING LABS AND IMAGING, DECISION MAKING, AND DOCUMENTATION GREATER THAN 45 MINUTES. - Past Medical Family Social History Past Med/Fam/Surg Hx: No changes since H&P Allergies: Allergies ibuprofen Adverse Reaction (Verified 10/06/20 20:57) abd pain - Review of Systems ROS: No change since H&P - Vital Signs and I&O's Vital Signs: Temperature 97.6 F Pulse Rate [Apical] 71 Pulse Rate [Left] 81 Pulse Rate 92 Respiratory Rate 24 Blood Pressure [Right Arm] 117/65 Blood Pressure [Left Arm] 147/90 Blood Pressure 133/64 O2 Sat by Pulse Oximetry 91 Intake and Output: Intake & Output 10/20/20 10/21/20 10/22/20 10/23/20 11:59 11:59 11:59 11:59 Intake Total 2350 / 2350 2020 2491 / 2491 2022 Output Total 4500 / 4500 1800 / 1800 Balance 2350 / 2350 2020 -2008 / 223 / 223 - Physical Exam Oriented: Normal Eyes: Normal Ear: Normal Nose: Normal Throat: Normal Respiratory: Generalized, Diminished, Rales Cardiovascular: Normal : Normal Auscultation: Bowel Sounds: Normal Tenderness: Normal Skin: Normal Musculoskeletal: Normal Psychiatric: Normal Mood Description: Anxious Affect: Anxious Speech Pattern: Clear, Appropriate - Laboratory and Diagnostics Result Diagrams: 10/23/20 05:05 10/23/20 05:05 Labs: 10/07/20 11:51 Blood Blood Culture - Final 10/07/20 11:49 Blood Blood Culture - Final Laboratory WBC 12.3 X10^3/uL (3.6-10.0) H 10/23/20 05:05 RBC 3.60 X10^6/uL (3.5-5.4) 10/23/20 05:05 Hgb 11.9 g/dL (12.0-16.0) L 10/23/20 05:05 Hct 34.0 % (36.0-47.0) L 10/23/20 05:05 MCV 94.5 fL (80.0-100.0) 10/23/20 05:05 MCH 33.0 pg (27.0-34.0) 10/23/20 05:05 MCHC 34.9 g/dL (33.0-35.0) 10/23/20 05:05 RDW 13.2 % (11.6-16.5) 10/23/20 05:05 Plt Count 103 X10^3/uL (150.0-450.0) L 10/23/20 05:05 Plt Count Comment Decreased (ADEQUATE) A 10/23/20 05:05 MPV 9.6 fL (7.4-11.0) 10/23/20 05:05 Neut % (Auto) 92.5 % (42.0-75.0) H 10/23/20 05:05 Lymph % (Auto) 2.2 % (21.0-51.0) L 10/23/20 05:05 [place] % (Auto) 5.0 % (0.0-13.0) 10/23/20 05:05 Eos % (Auto) 0.0 % (0.9-2.9) L 10/23/20 05:05 Baso % (Auto) 0.3 % (0.2-1.0) 10/23/20 05:05 Neut # (Auto) 11.4 x10^3/uL (2.2-4.8) H 10/23/20 05:05 Lymph # (Auto) 0.3 X10^3/uL (1.3-2.9) L 10/23/20 05:05 [place] # (Auto) 0.6 x10^3/uL (0.3-0.8) 10/23/20 05:05 Eos # (Auto) 0.0 x10^3/uL (0.0-0.2) 10/23/20 05:05 Baso # (Auto) 0.0 X10^3/uL (0.0-0.1) 10/23/20 05:05 Absolute Nucleated RBC 0.0 /100WBC 10/23/20 05:05 Total Counted 100 10/23/20 05:05 Neutrophils % (Manual) 98 % (39-76) H 10/23/20 05:05 Band Neutrophils % 2 % (0-10) 10/22/20 04:04 Lymphocytes % (Manual) 1 % (13-43) L 10/23/20 05:05 Monocytes % (Manual) 1 % (4-9) L 10/23/20 05:05 Plt Morphology Comment Normal (NORMAL) 10/23/20 05:05 RBC Morphology Normal (NORMAL) 10/23/20 05:05 D-Dimer 0.40 ug/ml (0.0-0.57) 10/12/20 05:33 Sample Site Lrad 10/23/20 05:08 ABG pH 7.580 (7.35-7.45) H* 10/23/20 05:08 ABG pCO2 35.0 mmHg (35.0-45.0) 10/23/20 05:08 ABG pO2 64.0 mmHg (80.0-100.0) L 10/23/20 05:08 ABG HCO3 32.8 mmol/L (22-26) H* 10/23/20 05:08 ABG O2 Saturation 95.0 % (90-100) 10/23/20 05:08 ABG Base Excess 10.4 mmol/L (-2.0-2.0) H 10/23/20 05:08 Loyd Test Pos 10/23/20 05:08 A-a Gradient 605.0 mmHg 10/23/20 05:08 FiO2 100.0 10/23/20 05:08 Blood Gas Comments Coby abg well-mtf 10/23/20 05:08 Sodium 138 mmol/L (136-145) 10/23/20 05:05 Corrected Sodium 141 mmol/L (136-145) 10/23/20 05:05 Potassium 4.0 mmol/L (3.5-5.1) 10/23/20 05:05 Chloride 101 mmol/L (98-107) 10/23/20 05:05 Carbon Dioxide 31.2 mmol/L (21-32) 10/23/20 05:05 BUN 15 mg/dL (7-18) 10/23/20 05:05 Creatinine 0.78 mg/dL (0.55-1.02) 10/23/20 05:05 Est GFR (MDRD) Af Amer > 60 (>60) 10/23/20 05:05 Est GFR (MDRD) Non-Af > 60 (>60) 10/23/20 05:05 Glucose 245 mg/dL (65-99) H 10/23/20 05:05 POC Glucose (mg/dL) 238 mg/dL (65-99) H 10/22/20 20:40 Calcium 8.0 mg/dL (8.5-10.1) L 10/23/20 05:05 Corrected Calcium 9.4 mg/dL (8.5-10.1) 10/23/20 05:05 Magnesium 2.4 mg/dL (1.7-2.9) 10/16/20 04:15 Ferritin 531 ng/mL (8-252) H 10/12/20 05:33 Total Bilirubin 1.40 mg/dL (0.2-1.0) H 10/23/20 05:05 AST 32 Units/L (15-37) 10/23/20 05:05 ALT 49 Units/L (12-78) 10/23/20 05:05 Alkaline Phosphatase 127 Units/L (46-116) H 10/23/20 05:05 Creatine Kinase 180 Units/L (26-192) 10/07/20 11:49 CK-MB (CK-2) < 1.0 ng/mL (0-4.0) 10/07/20 11:49 CK/CKMB % Calc 0.6 % (<4) 10/07/20 11:49 Troponin I < 0.02 ng/mL (0-1.5) 10/07/20 11:49 C-Reactive Protein < 0.50 mg/L (0-3.0) 10/23/20 05:05 B-Natriuretic Peptide 34.5 pg/mL (0-79) 10/23/20 05:05 Total Protein 5.5 g/dL (6.4-8.2) L 10/23/20 05:05 Albumin 2.3 g/dL (3.4-5.0) L 10/23/20 05:05 Globulin 3.2 g/dL (2.5-4.5) 10/23/20 05:05 Albumin/Globulin Ratio 0.7 Ratio (1.1-2.1) L 10/23/20 05:05 Prealbumin 25.5 mg/dL (18-35.7) 10/19/20 04:05 - Plan (1) Pneumonia due to COVID-19 virus Status: Acute Plan: SUPPLEMENTAL OXYGEN, NS AT 20 ML/HR, LEVAQUIN 500MG IV DAILY, IV DOXYCYCLINE 100MG BID, ASCORBIC ACID 1500MG IV Q6H, ALBUTEROL NEBS QID, PULMICORT NEBS BID, SOLU-MEDROL 125MG IV6H, XANAX 0.5MG PO BID PRN, IV MORPHINE 2MG Q6H PRN, FLUVOXAMINE 50MG PO BID, CYPROHEPTADINE 8MG PO TID, ZOFRAN 4MG IV Q8H PRN, LOVENOX 85MG SC Q12H, LIPITOR 80MG PO HS, TESSALON PERLES 200MG PO TID, CETIRIZINE 10MG PO DAILY, XANAX 0.5MG PO GID, PEPCID 40MG PO BID, ROBITUSSIN DM 10ML PO QID PRN, HUMULIN R SLIDING SCALE, SINGULAIR 10MG PO HS, PROTONIX 40MG PO BID, THIAMINE 200MG IV BID, NYSTATIN SUSP 5ML PO TID, MAGIC MOUTHWASH TID, ACYCLOVIR TID, AND ZINC SULFATE 220MG PO BID, RESTORIL, THE POTASSIUM PROTOCOL (2) Hypoxia Status: Acute
--- NOTE | 2020-10-23 10:44 | PCM.PROG ---
Progress Note - Progress Note for Day of Date of Exam: 10/23/20 - Subjective Subjective: MS. RICHARDS WAS ADMITTED FOR TREATMENT OF COVID PNEUMONIA AND HYPOXIA. SHE RECEIVED [facility] INFUSION IN [place], [place] ON 10/05/20. TODAY, SHE IS ALERT AND ORIENTED, LYING IN THE BED ON MORNING ROUNDS. SHE IS CURRENTLY UTILIZING THE BIPAP WITH FI02 AT 100%. SATURATIONS HAVE BEEN 85-89% THIS MONRING AND THROUGHOUT THE NIGHT WHILE ON THE BIPAP. SHE DENIES SIGNIFICANT IMPROVEMENT IN SYMPTOMS. ON EXAMINATION, THERE IS WHAT APPEARS TO BE A VIRAL ULCER TO THE UPPER LIP. AREA IS BLACKENED AND SCABBED OVER. HEART IS REGULAR IN RATE AND RHYTHM. BILATERAL LUNGS ARE NOTED WITH RALES THROUGHOUT. ABDOMEN IS ROUND, SOFT, AND NON-TENDER WITH NORMAL BOWEL SOUNDS NOTED IN ALL QUADRANTS. HIS VITALS THIS MORNING ARE: 97.6-70-20-87%-152/77. LABS WERE OBTAINED. ABNORMAL LAB VALUES INCLUDE THE FOLLOWING: WBC 12.3, HGB 11.9, HCT 34.0, PLT COUNT 103, GLUCOSE 245, CALCIUM 8.0, TOTAL BILI 1.40, ALK PHOS 127, TOTAL PROTEIN 5.5, ALBUMIN 2.3. ABG REVEALED: PH 7.580, PC02 35, P02 64, HC03 32.8, 02 SAT 95, A-A GRADIENT 605, FI02 100. SHE IS CURRENTLY RECEIVING NS AT 20 ML/HR, LEVAQUIN 500MG IV DAILY, IV DOXYCYCLINE 100MG BID, ASCORBIC ACID 1500MG IV Q6H, ALBUTEROL NEBS QID, PULMICORT NEBS BID, SOLU-MEDROL 125MG IV Q6H, XANAX 0.5MG PO BID PRN, IV MORPHINE 2MG Q6H PRN, FLUVOXAMINE 50MG PO BID, CYPROHEPTADINE 8MG PO TID, ZOFRAN 4MG IV Q8H PRN, NYSTATIN SUSP 5ML PO TID, MAGIC MOUTHWASH TID, ACYCLOVIR O INTMENT TID, LOVENOX 85MG SC Q12H, LIPITOR 80MG PO HS, TESSALON PERLES 200MG PO TID, CETIRIZINE 10MG PO DAILY, XANAX 0.5MG PO BID, PEPCID 40MG PO BID, ROBITUSSIN DM 10ML PO QID PRN, HUMULIN R SLIDING SCALE, SINGULAIR 10MG PO HS, PROTONIX 40MG PO BID, THIAMINE 200MG IV BID, AND ZINC SULFATE 220MG PO BID, RESTORIL, THE POTASSIUM PROTOCOL. WE WILL CONTINUE WITH CURRENT PLAN OF CARE TODAY AND ATTEMPT TO WEAN DOWN OXYGEN SHE TOLERATES IT. WE WILL FOLLOW UP WITH AM LABS, CHEST XRAY, ABG, AND CONTINUE TO MONITOR. TIME SPENT ON CLINICAL ASSESSMENT, REVIEWING LABS AND IMAGING, DECISION MAKING, AND DOCUMENTATION GREATER THAN 45 MINUTES. - Past Medical Family Social History Past Med/Fam/Surg Hx: No changes since H&P Allergies: Allergies ibuprofen Adverse Reaction (Verified 10/06/20 20:57) abd pain - Review of Systems ROS: No change since H&P - Vital Signs and I&O's Vital Signs: Temperature 97.6 F Pulse Rate [Apical] 71 Pulse Rate [Left] 81 Pulse Rate 72 Respiratory Rate 21 Blood Pressure [Right Arm] 117/65 Blood Pressure [Left Arm] 147/90 Blood Pressure 133/75 O2 Sat by Pulse Oximetry 87 Intake and Output: Intake & Output 10/20/20 10/21/20 10/22/20 10/23/20 11:59 11:59 11:59 11:59 Intake Total 2350 / 2350 2020 2491 / 2491 2022 Output Total 4500 / 4500 1800 / 1800 Balance 2350 / 2350 2020 -2008 / / 223 - Physical Exam Oriented: Normal Eyes: Normal Ear: Normal Nose: Normal Throat: Normal Respiratory: Generalized, Diminished, Rales Cardiovascular: Normal : Normal Auscultation: Bowel Sounds: Normal Tenderness: Normal Skin: Normal Musculoskeletal: Normal Psychiatric: Normal Mood Description: Anxious Affect: Anxious Speech Pattern: Clear, Appropriate - Laboratory and Diagnostics Result Diagrams: 10/23/20 05:05 10/23/20 05:05 Labs: 10/07/20 11:51 Blood Blood Culture - Final 10/07/20 11:49 Blood Blood Culture - Final Laboratory WBC 12.3 X10^3/uL (3.6-10.0) H 10/23/20 05:05 RBC 3.60 X10^6/uL (3.5-5.4) 10/23/20 05:05 Hgb 11.9 g/dL (12.0-16.0) L 10/23/20 05:05 Hct 34.0 % (36.0-47.0) L 10/23/20 05:05 MCV 94.5 fL (80.0-100.0) 10/23/20 05:05 MCH 33.0 pg (27.0-34.0) 10/23/20 05:05 MCHC 34.9 g/dL (33.0-35.0) 10/23/20 05:05 RDW 13.2 % (11.6-16.5) 10/23/20 05:05 Plt Count 103 X10^3/uL (150.0-450.0) L 10/23/20 05:05 Plt Count Comment Decreased (ADEQUATE) A 10/23/20 05:05 MPV 9.6 fL (7.4-11.0) 10/23/20 05:05 Neut % (Auto) 92.5 % (42.0-75.0) H 10/23/20 05:05 Lymph % (Auto) 2.2 % (21.0-51.0) L 10/23/20 05:05 [place] % (Auto) 5.0 % (0.0-13.0) 10/23/20 05:05 Eos % (Auto) 0.0 % (0.9-2.9) L 10/23/20 05:05 Baso % (Auto) 0.3 % (0.2-1.0) 10/23/20 05:05 Neut # (Auto) 11.4 x10^3/uL (2.2-4.8) H 10/23/20 05:05 Lymph # (Auto) 0.3 X10^3/uL (1.3-2.9) L 10/23/20 05:05 [place] # (Auto) 0.6 x10^3/uL (0.3-0.8) 10/23/20 05:05 Eos # (Auto) 0.0 x10^3/uL (0.0-0.2) 10/23/20 05:05 Baso # (Auto) 0.0 X10^3/uL (0.0-0.1) 10/23/20 05:05 Absolute Nucleated RBC 0.0 /100WBC 10/23/20 05:05 Total Counted 100 09/14/21 05:05 Neutrophils % (Manual) 98 % (39-76) H 10/23/20 05:05 Band Neutrophils % 2 % (0-10) 10/22/20 04:04 Lymphocytes % (Manual) 1 % (13-43) L 10/23/20 05:05 Monocytes % (Manual) 1 % (4-9) L 10/23/20 05:05 Plt Morphology Comment Normal (NORMAL) 10/23/20 05:05 RBC Morphology Normal (NORMAL) 10/23/20 05:05 D-Dimer 0.40 ug/ml (0.0-0.57) 10/12/20 05:33 Sample Site Lrad 10/23/20 05:08 ABG pH 7.580 (7.35-7.45) H* 10/23/20 05:08 ABG pCO2 35.0 mmHg (35.0-45.0) 10/23/20 05:08 ABG pO2 64.0 mmHg (80.0-100.0) L 10/23/20 05:08 ABG HCO3 32.8 mmol/L (22-26) H* 10/23/20 05:08 ABG O2 Saturation 95.0 % (90-100) 10/23/20 05:08 ABG Base Excess 10.4 mmol/L (-2.0-2.0) H 10/23/20 05:08 Loyd Test Pos 10/23/20 05:08 A-a Gradient 605.0 mmHg 10/23/20 05:08 FiO2 100.0 10/23/20 05:08 Blood Gas Comments Coby abg well-mtf 10/23/20 05:08 Sodium 138 mmol/L (136-145) 10/23/20 05:05 Corrected Sodium 141 mmol/L (136-145) 10/23/20 05:05 Potassium 4.0 mmol/L (3.5-5.1) 10/23/20 05:05 Chloride 101 mmol/L (98-107) 10/23/20 05:05 Carbon Dioxide 31.2 mmol/L (21-32) 10/23/20 05:05 BUN 15 mg/dL (7-18) 10/23/20 05:05 Creatinine 0.78 mg/dL (0.55-1.02) 10/23/20 05:05 Est GFR (MDRD) Af Amer > 60 (>60) 10/23/20 05:05 Est GFR (MDRD) Non-Af > 60 (>60) 10/23/20 05:05 Glucose 245 mg/dL (65-99) H 10/23/20 05:05 POC Glucose (mg/dL) 238 mg/dL (65-99) H 10/22/20 20:40 Calcium 8.0 mg/dL (8.5-10.1) L 10/23/20 05:05 Corrected Calcium 9.4 mg/dL (8.5-10.1) 10/23/20 05:05 Magnesium 2.4 mg/dL (1.7-2.9) 10/16/20 04:15 Ferritin 531 ng/mL (8-252) H 10/12/20 05:33 Total Bilirubin 1.40 mg/dL (0.2-1.0) H 10/23/20 05:05 AST 32 Units/L (15-37) 10/23/20 05:05 ALT 49 Units/L (12-78) 10/23/20 05:05 Alkaline Phosphatase 127 Units/L (46-116) H 10/23/20 05:05 Creatine Kinase 180 Units/L (26-192) 10/07/20 11:49 CK-MB (CK-2) < 1.0 ng/mL (0-4.0) 10/07/20 11:49 CK/CKMB % Calc 0.6 % (<4) 10/07/20 11:49 Troponin I < 0.02 ng/mL (0-1.5) 10/07/20 11:49 C-Reactive Protein < 0.50 mg/L (0-3.0) 10/23/20 05:05 B-Natriuretic Peptide 34.5 pg/mL (0-79) 10/23/20 05:05 Total Protein 5.5 g/dL (6.4-8.2) L 10/23/20 05:05 Albumin 2.3 g/dL (3.4-5.0) L 10/23/20 05:05 Globulin 3.2 g/dL (2.5-4.5) 10/23/20 05:05 Albumin/Globulin Ratio 0.7 Ratio (1.1-2.1) L 10/23/20 05:05 Prealbumin 25.5 mg/dL (18-35.7) 10/19/20 04:05 - Plan (1) Pneumonia due to COVID-19 virus Status: Acute Plan: SUPPLEMENTAL OXYGEN, NS AT 20 ML/HR, LEVAQUIN 500MG IV DAILY, IV DOXYCYCLINE 100MG BID, ASCORBIC ACID 1500MG IV Q6H, ALBUTEROL NEBS QID, PULMICORT NEBS BID, SOLU-MEDROL 125MG IV6H, XANAX 0.5MG PO BID PRN, IV MORPHINE 2MG Q6H PRN, FLUVOXAMINE 50MG PO BID, CYPROHEPTADINE 8MG PO TID, ZOFRAN 4MG IV Q8H PRN, LOVENOX 85MG SC Q12H, LIPITOR 80MG PO HS, TESSALON PERLES 200MG PO TID, CETIRIZINE 10MG PO DAILY, XANAX 0.5MG PO GID, PEPCID 40MG PO BID, ROBITUSSIN DM 10ML PO QID PRN, HUMULIN R SLIDING SCALE, SINGULAIR 10MG PO HS, PROTONIX 40MG PO BID, THIAMINE 200MG IV BID, NYSTATIN SUSP 5ML PO TID, MAGIC MOUTHWASH TID, ACYCLOVIR TID, AND ZINC SULFATE 220MG PO BID, RESTORIL, THE POTASSIUM PROTOCOL (2) Hypoxia Status: Acute
[2020-10-23] MEDS: ZOFRAN INJ 4 MG VIAL IVP PRN (10:46)
--- NOTE | 2020-10-23 14:55 | RAD ---
HISTORYCOVID PNEUMONIASTUDYCHEST x-ray, 1 VIEWCOMPARISONX-ray from previous dayFINDINGSThe trachea is midline. The cardiac silhouette is unremarkable .Bilateral lung infiltrates are unchanged. No pneumothorax or pleural effusion is seen.No acute bony abnormality is seen.IMPRESSIONPersistent bilateral COVID-19 pneumonia or post infectious changes.Electronically signed by: Cody Leong (Oct 23, 2020 14:53:00)
[2020-10-23] MEDS: TUSSIONEX PENNKINETIC SUSP PO PRN ×2 (15:13→22:00)
[2020-10-23] MEDS ORDERED: XYLOCAINE 1 % (PLAIN) ONE (15:55)
[2020-10-23] MEDS: SNACK - Diabetic Appropriate PO SCH (20:55)
[2020-10-23] MEDS: RESTORIL CAP 15 MG PO SCH (21:30)
[2020-10-24] MEDS: NORCO 5/325 MG TAB PO PRN (03:36)
[2020-10-24] MEDS: ASCORBIC ACID INJ MULTI-DOSE VIAL 1,500 MG in NS 50 ML IV 50 ML IV SCH ×4 (03:36→21:20)
[2020-10-24] MEDS: SOLU-Medrol 125 MG VIAL IVP SCH ×4 (03:38→22:40)
[2020-10-24] MEDS: LEVAQUIN PREMIX IV 500 MG 500 MG/100 ML BAG IV SCH (03:38)
[2020-10-24 05:06] LABS: ABG BASE EXCESS 8.8 mmol/L (-2.0-2.0)
[2020-10-24 05:07] LABS: ABG ALLEN TEST POS; ABG HCO3 32.7 mmol/L (22-26)
[2020-10-24 05:22] LABS: BASOPHILS % (AUTO) 0.1 % (0.2-1.0); HEMATOCRIT 34.1 % (36.0-47.0); HEMOGLOBIN 11.6 g/dL (12.0-16.0); LYMPHOCYTES # (AUTO) 0.2 X10^3/uL (1.3-2.9); LYMPHOCYTES % (AUTO) 1.8 % (21.0-51.0); MEAN CORPUSCULAR HEMOGLOBIN 32.5 pg (27.0-34.0); MEAN CORPUSCULAR HGB CONC 33.9 g/dL (33.0-35.0); MEAN CORPUSCULAR VOLUME 96.1 fL (80.0-100.0); MEAN PLATELET VOLUME 9.9 fL (7.4-11.0); MONOCYTES # (AUTO) 0.6 x10^3/uL (0.3-0.8); MONOCYTES % (AUTO) 4.6 % (0.0-13.0); NEUTROPHILS # (AUTO) 11.7 x10^3/uL (2.2-4.8); NEUTROPHILS % (AUTO) 93.5 % (42.0-75.0); PLATELET COUNT 88 X10^3/uL (150.0-450.0); RED BLOOD COUNT 3.55 X10^6/uL (3.5-5.4); RED CELL DISTRIBUTION WIDTH 13.8 % (11.6-16.5); WHITE BLOOD COUNT 12.5 X10^3/uL (3.6-10.0)
[2020-10-24 05:31] LABS: ALANINE AMINOTRANSFERASE 48 Units/L (12-78); ALBUMIN 2.2 g/dL (3.4-5.0); ALKALINE PHOSPHATASE 131 Units/L (46-116); ASPARTATE AMINO TRANSFERASE 33 Units/L (15-37); BLOOD UREA NITROGEN 15 mg/dL (7-18); CARBON DIOXIDE 30.6 mmol/L (21-32); CHLORIDE 101 mmol/L (98-107); COR CA(FOR HYPOALB) 9.4 mg/dL (8.5-10.1); COR NA(FOR HYPERGLY) 141 mmol/L (136-145); PREALBUMIN 33.9 mg/dL (18-35.7); SODIUM 137 mmol/L (136-145); TOTAL PROTEIN 5.4 g/dL (6.4-8.2); eGFR NON BLACK RACES > 60 (>60)
[2020-10-24] MEDS: ACCUNEB 1.25 MG NEBULE NEB SCH ×3 (05:32→20:49)
[2020-10-24 06:00] LABS: BAND NEUTROPHILS % 2 % (0-10)
[2020-10-24 06:01] LABS: PLATELET MORPHOLOGY COMMENT NORMAL (NORMAL)
[2020-10-24] MEDS: MAGIC MOUTHWASH PO SCH ×2 (06:08→13:14)
[2020-10-24] MEDS: TESSALON PERLES PO SCH ×2 (06:09→13:14)
[2020-10-24] MEDS: NYSTATIN SUSP MT SCH ×2 (06:10→13:14)
[2020-10-24] MEDS: HumuLIN R SUBCUT PRN ×3 (06:10→23:39)
[2020-10-24] MEDS ORDERED: CARDIZEM INJ 125 MG VIAL 125 MG in NS 100 ML IV 100 ML IV PRN (07:17)
[2020-10-24] MEDS ORDERED: CARDIZEM INJ 50 MG VIAL IVP ONE (07:19)
[2020-10-24] MEDS ORDERED: CARDIZEM INJ 50 MG VIAL ONE (07:21)
[2020-10-24] MEDS ORDERED: CARDIZEM INJ 125 MG VIAL ONE (07:22)
[2020-10-24] MEDS ORDERED: NS 100 ML IV 100 ML ONE (07:22)
[2020-10-24] MEDS: MORPHINE SULFATE INJ 2 MG INJ IVP PRN (07:30)
[2020-10-24] MEDS: NS 1000 ML 1,000 ML IV SCH ×2 (07:58→22:36)
[2020-10-24] MEDS: BROVANA IN SCH ×2 (08:50→20:49)
[2020-10-24] MEDS: PULMICORT NEB TX 0.5 MG NEB SCH ×2 (08:50→20:49)
[2020-10-24] MEDS: PROTONIX INJ 40 MG VIAL IVP SCH (09:10)
[2020-10-24] MEDS: THIAMINE HCL INJ IVP SCH ×2 (09:11→22:36)
[2020-10-24] MEDS: VIBRAMYCIN 100 MG in D5W 250 ML IV 250 ML IV SCH ×2 (10:01→22:00)
[2020-10-24] MEDS ORDERED: BRIDION ONE (10:01)
[2020-10-24] MEDS: VITAMIN D3 125 mcg (5,000 UNITS) PO SCH (10:02)
[2020-10-24] MEDS ORDERED: ZEMURON 50 MG VIAL ONE ×2 (10:02→10:35)
[2020-10-24] MEDS: XANAX PO SCH ×2 (10:02→15:16)
[2020-10-24] MEDS ORDERED: NS 50 ML IV 50 ML IV ONE (10:27)
[2020-10-24] MEDS ORDERED: VERSED IV PREMIX 100 MG/100 ML IV.SOLN IV ONE (10:27)
[2020-10-24] MEDS ORDERED: NORCURON INJ 10 MG VIAL 50 MG in NS 50 ML IV 50 ML IV PRN (10:33)
[2020-10-24] MEDS ORDERED: NS 500 ML IV 500 ML IV ONE (10:35)
[2020-10-24] MEDS ORDERED: DIPRIVAN VIAL ONE (10:35)
[2020-10-24] MEDS: VERSED 100 MG in NS 100 ML IV 80 ML IV PRN ×2 (10:52→20:21)
[2020-10-24] MEDS: DIPRIVAN PREMIX 1 GRAM IV 1,000 MG/100 ML VIAL IV PRN (10:53)
--- NOTE | 2020-10-24 11:04 | RAD ---
CHEST, 1 VIEWHISTORY: ET TUBE PLACEMENTStudy: Single view of the chest.Comparison:10/24/2020Findings:No change in the appearance of cardiopulmonary structures. New endotracheal tube terminates 5.5 cm above the norma.IMPRESSION:1. New endotracheal tube terminates 5.5 cm above the norma.[]Electronically signed by: SILVIA WARD (Oct 24, 2020 11:02:58)
[2020-10-24 11:45] LABS: ABG BASE EXCESS 7.4 mmol/L (-2.0-2.0)
[2020-10-24 11:46] LABS: ABG ALLEN TEST POS
--- NOTE | 2020-10-24 12:31 | DR.UPDATE ---
H&P Update History and Physical Update: History and Physical reviewed and patient examined. Changes noted: NO Yes with the following:will place art line for sampling/monitoring H&P Reviewed: Yes Patient was examined?: Yes Procedures (ALL) - Arterial Line Consent obtained: verbal consent Time out performed: Yes Size(gauge): 20 Technique used: guided wire technique (visualized with u/s) Post-procedure: dry sterile dressing placed Patient tolerated procedure: Yes Site: Left, radial
--- NOTE | 2020-10-24 12:55 | RAD ---
CHEST, 1 VIEWHISTORY: ADVANCEMENT OF ET TUBE, LOW O2 SATS AFTER INTUBATIONStudy: Single view of the chest.Comparison:Same dayFindings:No change in the appearance of cardiopulmonary structures. endotracheal tube terminates 4.0 cm above the norma.IMPRESSION:1. endotracheal tube terminates 4.0 cm above the norma.[]Electronically signed by: SILVIA WARD (Oct 24, 2020 12:52:55)
[2020-10-24] MEDS: LACRI-LUBE S.O.P. AFFEYE SCH ×2 (13:36→22:27)
[2020-10-24] MEDS: ZEMURON 100 MG VIAL 500 MG in NS 500 ML IV 450 ML IV PRN (14:45)
[2020-10-24] MEDS ORDERED: COLACE CAP 100 MG PO SCH (21:00)
[2020-10-25] MEDS: DIPRIVAN PREMIX 1 GRAM IV 1,000 MG/100 ML VIAL IV PRN ×2 (00:37→18:27)
[2020-10-25] MEDS: SNACK - Diabetic Appropriate PO SCH (00:42)
[2020-10-25] MEDS: RESTORIL CAP 15 MG PO SCH ×2 (00:45→21:17)
[2020-10-25] MEDS: NYSTATIN SUSP MT SCH ×3 (00:48→13:20)
[2020-10-25] MEDS: MAGIC MOUTHWASH PO SCH ×3 (00:48→13:20)
[2020-10-25] MEDS: XANAX PO SCH (00:48)
[2020-10-25] MEDS: TESSALON PERLES PO SCH ×3 (00:49→13:21)
[2020-10-25] MEDS: ZEMURON 100 MG VIAL 500 MG in NS 500 ML IV 450 ML IV PRN ×2 (03:04→18:28)
[2020-10-25] MEDS: ASCORBIC ACID INJ MULTI-DOSE VIAL 1,500 MG in NS 50 ML IV 50 ML IV SCH ×2 (03:16→09:28)
[2020-10-25] MEDS: SOLU-Medrol 125 MG VIAL IVP SCH ×4 (03:16→21:17)
[2020-10-25] MEDS: LEVAQUIN PREMIX IV 500 MG 500 MG/100 ML BAG IV SCH (03:57)
[2020-10-25 04:33] LABS: ABG BASE EXCESS 7.8 mmol/L (-2.0-2.0)
[2020-10-25 06:30] LABS: BASOPHILS % (AUTO) 0.1 % (0.2-1.0); HEMATOCRIT 35.9 % (36.0-47.0); HEMOGLOBIN 12.2 g/dL (12.0-16.0); LYMPHOCYTES # (AUTO) 0.2 X10^3/uL (1.3-2.9); LYMPHOCYTES % (AUTO) 1.6 % (21.0-51.0); MEAN CORPUSCULAR HGB CONC 34.1 g/dL (33.0-35.0); MEAN CORPUSCULAR VOLUME 96.9 fL (80.0-100.0); MEAN PLATELET VOLUME 9.6 fL (7.4-11.0); MONOCYTES # (AUTO) 0.4 x10^3/uL (0.3-0.8); MONOCYTES % (AUTO) 2.7 % (0.0-13.0); NEUTROPHILS # (AUTO) 13.5 x10^3/uL (2.2-4.8); NEUTROPHILS % (AUTO) 95.6 % (42.0-75.0); PLATELET COUNT 83 X10^3/uL (150.0-450.0); WHITE BLOOD COUNT 14.1 X10^3/uL (3.6-10.0)
[2020-10-25 06:43] LABS: ALANINE AMINOTRANSFERASE 59 Units/L (12-78); ALBUMIN 2.3 g/dL (3.4-5.0); ALKALINE PHOSPHATASE 125 Units/L (46-116); ASPARTATE AMINO TRANSFERASE 34 Units/L (15-37); BLOOD UREA NITROGEN 14 mg/dL (7-18); CALCIUM 7.8 mg/dL (8.5-10.1); CARBON DIOXIDE 29.4 mmol/L (21-32); CHLORIDE 100 mmol/L (98-107); COR CA(FOR HYPOALB) 9.2 mg/dL (8.5-10.1); COR NA(FOR HYPERGLY) 139 mmol/L (136-145); CREATININE 0.58 mg/dL (0.55-1.02); SODIUM 135 mmol/L (136-145); TOTAL PROTEIN 5.6 g/dL (6.4-8.2); eGFR NON BLACK RACES > 60 (>60)
[2020-10-25 07:37] LABS: PLATELET MORPHOLOGY COMMENT NORMAL (NORMAL)
[2020-10-25] MEDS: PULMICORT NEB TX 0.5 MG NEB SCH ×2 (08:15→21:13)
[2020-10-25] MEDS: BROVANA IN SCH ×2 (08:15→21:13)
[2020-10-25] MEDS: LACRI-LUBE S.O.P. AFFEYE SCH ×2 (09:28→21:15)
[2020-10-25] MEDS: PROTONIX INJ 40 MG VIAL IVP SCH (09:29)
[2020-10-25] MEDS: THIAMINE HCL INJ IVP SCH ×2 (09:29→21:17)
[2020-10-25] MEDS: VIBRAMYCIN 100 MG in D5W 250 ML IV 250 ML IV SCH ×2 (09:29→21:18)
[2020-10-25] MEDS ORDERED: PHARMACY CONSULT - TPN XX SCH (10:00)
[2020-10-25] MEDS: NS 1000 ML 1,000 ML IV SCH (10:02)
[2020-10-25] MEDS: VITAMIN D3 125 mcg (5,000 UNITS) PO SCH (10:10)
--- NOTE | 2020-10-25 10:16 | RAD ---
HISTORYOG TUBE PLACEMENTSTUDYKUB x-ray one viewCOMPARISONNoneFINDINGSOG tube tip and side hole appear to be in the proximal aspect of the stomach directed inferiorly. Patient has had prior cholecystectomy. Femoral line is seen in the right iliac region. No bowel dilation is seen.IMPRESSIONOG tube tip and side hole appear to be in the proximal aspect of the stomach.Electronically signed by: Cody Leong (Oct 25, 2020 10:13:47)
--- NOTE | 2020-10-25 10:34 | PCM.PROG ---
Progress Note - Progress Note for Day of Date of Exam: 10/24/20 - Subjective Subjective: MS. RICHARDS WAS ADMITTED FOR TREATMENT OF COVID PNEUMONIA AND HYPOXIA. SHE RECEIVED [facility]OV INFUSION IN [place], [place] ON 10/05/20. TODAY, SHE IS ALERT AND ORIENTED, LYING IN THE BED ON MORNING ROUNDS. SHE IS CURRENTLY UTILIZING THE BIPAP WITH FI02 AT 100%. SATURATIONS HAVE BEEN 79-86% THIS MORNING AND THROUGHOUT THE NIGHT WHILE ON THE BIPAP. SHE DENIES SIGNIFICANT IMPROVEMENT IN SYMPTOMS. STAFF REPORTS THAT PATIENT HAS BEEN AGITATED. ON EXAMINATION, VIRAL ULCER APPEARS TO BE SLIGHTLY IMPROVED TODAY. HEART IS REGULAR IN RATE AND RHYTHM. BILATERAL LUNGS ARE NOTED WITH RALES THROUGHOUT. ABDOMEN IS ROUND, SOFT, AND NON-TENDER WITH NORMAL BOWEL SOUNDS NOTED IN ALL QUADRANTS. HIS VITALS THIS MORNING ARE: 98.5-100-26-84%-142/80. LABS WERE OBTAINED. ABNORMAL LAB VALUES INCLUDE THE FOLLOWING: WBC 12.5, HGB 11.6, HCT 34.1, PLT COUNT 88, GLUCOSE 247, CALCIUM 8.0, TOTAL BILI 1.50, ALK PHOS 131, TOTAL PROTEIN 5.4, ALBUMIN 2.2. ABG REVEALED: PH 7.510, PC02 41, P02 46, HC03 32.7, 02 SAT 86, BASE EXCESS 8.8, FI02 100. SHE IS CURRENTLY RECEIVING NS AT 20 ML/HR, LEVAQUIN 500MG IV DAILY, IV DOXYCYCLINE 100MG BID, ASCORBIC ACID 1500MG IV Q6H, ALBUTEROL NEBS QID, PULMICORT NEBS BID, SOLU-MEDROL 125MG IV Q6H, XANAX 0.5MG PO BID PRN, IV MORPHINE 2MG Q6H PRN, FLUVOXAMINE 50MG PO BID, CYPROHEPTADINE 8MG PO TID, ZOFRAN 4MG IV Q8H PRN, NYSTATIN SUSP 5ML PO TID, MAGIC MOUTHWASH TID, ACYCLOVIR O INTMENT TID, LOVENOX 85MG SC Q12H, LIPITOR 80MG PO HS, TESSALON PERLES 200MG PO TID, CETIRIZINE 10MG PO DAILY, XANAX 0.5MG PO BID, PEPCID 40MG PO BID, ROBITUSSIN DM 10ML PO QID PRN, HUMULIN R SLIDING SCALE, SINGULAIR 10MG PO HS, PROTONIX 40MG PO BID, THIAMINE 200MG IV BID, AND ZINC SULFATE 220MG PO BID, RESTORIL, THE POTASSIUM PROTOCOL. DUE TO DECLINING CONDITION, WE WILL GO AHEAD AND INTUBATE PATIENT TODAY. WE HAVE DISCUSSED PLANS WITH HER FAMILY AND THEY ARE IN AGREEMENT. WE WILL START VERSED FOR SEDATION. OTHERWISE, WE WILL FOLLOW UP WITH AM LABS, CHEST XRAY, ABG, AND CONTINUE TO MONITOR. TIME SPENT ON CLINICAL ASSESSMENT, REVIEWING LABS AND IMAGING, DECISION MAKING, AND DOCUMENTATION GRE ATER THAN 45 MINUTES. - Past Medical Family Social History Past Med/Fam/Surg Hx: No changes since H&P Allergies: Allergies ibuprofen Adverse Reaction (Verified 10/06/20 20:57) abd pain - Review of Systems ROS: No change since H&P - Vital Signs and I&O's Vital Signs: Temperature 98.2 F Pulse Rate [Apical] 71 Pulse Rate [Left] 81 Pulse Rate 109 Respiratory Rate 30 Blood Pressure [Right Arm] 117/65 Blood Pressure [Left Arm] 147/90 Blood Pressure 147/92 O2 Sat by Pulse Oximetry 89 Intake and Output: Intake & Output 10/22/20 10/23/20 10/24/20 10/25/20 11:59 11:59 11:59 11:59 Intake Total 2491 / 2491 2022 / 2022 2591 / 2591 2968.4 / 2968.4 Output Total 4500 / 4500 1800 / 1800 1999 / 1999 1800 / 1800 Balance -2008 / -2008 223 / 223 591 / 591 1168.4 / 1168.4 - Physical Exam Oriented: Normal Eyes: Normal Ear: Normal Nose: Normal Throat: Normal Respiratory: Generalized, Diminished, Rales Cardiovascular: Normal : Normal Auscultation: Bowel Sounds: Normal Palpation: Normal Tenderness: Normal Skin: Normal Musculoskeletal: Normal Psychiatric: Normal Mood Description: Anxious Affect: Anxious Speech Pattern: Artificially Ventilated - Laboratory and Diagnostics Result Diagrams: 10/25/20 05:17 10/25/20 05:17 Labs: 10/24/20 20:55 Sputum - Endotracheal Wash - Final 10/07/20 11:51 Blood Blood Culture - Final 10/07/20 11:49 Blood Blood Culture - Final Laboratory WBC 14.1 X10^3/uL (3.6-10.0) H 10/25/20 05:17 RBC 3.70 X10^6/uL (3.5-5.4) 10/25/20 05:17 Hgb 12.2 g/dL (12.0-16.0) 10/25/20 05:17 Hct 35.9 % (36.0-47.0) L 10/25/20 05:17 MCV 96.9 fL (80.0-100.0) 10/25/20 05:17 MCH 33.0 pg (27.0-34.0) 10/25/20 05:17 MCHC 34.1 g/dL (33.0-35.0) 10/25/20 05:17 RDW 14.0 % (11.6-16.5) 10/25/20 05:17 Plt Count 83 X10^3/uL (150.0-450.0) L 10/25/20 05:17 Plt Count Comment Decreased (ADEQUATE) A 10/25/20 05:17 MPV 9.6 fL (7.4-11.0) 10/25/20 05:17 Neut % (Auto) 95.6 % (42.0-75.0) H 10/25/20 05:17 Lymph % (Auto) 1.6 % (21.0-51.0) L 10/25/20 05:17 [place] % (Auto) 2.7 % (0.0-13.0) 10/25/20 05:17 Eos % (Auto) 0.0 % (0.9-2.9) L 10/25/20 05:17 Baso % (Auto) 0.1 % (0.2-1.0) L 10/25/20 05:17 Neut # (Auto) 13.5 x10^3/uL (2.2-4.8) H 10/25/20 05:17 Lymph # (Auto) 0.2 X10^3/uL (1.3-2.9) L 10/25/20 05:17 [place] # (Auto) 0.4 x10^3/uL (0.3-0.8) 10/25/20 05:17 Eos # (Auto) 0.0 x10^3/uL (0.0-0.2) 10/25/20 05:17 Baso # (Auto) 0.0 X10^3/uL (0.0-0.1) 10/25/20 05:17 Absolute Nucleated RBC 0.1 /100WBC 10/25/20 05:17 Total Counted 100 10/25/20 05:17 Neutrophils % (Manual) 99 % (39-76) H 10/25/20 05:17 Band Neutrophils % 2 % (0-10) 10/24/20 04:40 Lymphocytes % (Manual) 1 % (13-43) L 10/25/20 05:17 Monocytes % (Manual) 2 % (4-9) L 10/24/20 04:40 Nucleated RBCs 1 10/25/20 05:17 Plt Morphology Comment Normal (NORMAL) 10/25/20 05:17 RBC Morphology Normal (NORMAL) 10/25/20 05:17 D-Dimer 0.40 ug/ml (0.0-0.57) 10/12/20 05:33 Sample Site Art-line 10/25/20 04:30 ABG pH 7.490 (7.35-7.45) H 10/25/20 04:30 ABG pCO2 42.0 mmHg (35.0-45.0) 10/25/20 04:30 ABG pO2 49.0 mmHg (80.0-100.0) L* 10/25/20 04:30 ABG HCO3 32.0 mmol/L (22-26) H* 10/25/20 04:30 ABG O2 Saturation 88.0 % (90-100) L 10/25/20 04:30 ABG Base Excess 7.8 mmol/L (-2.0-2.0) H 10/25/20 04:30 Loyd Test Na 10/25/20 04:30 A-a Gradient 612.0 mmHg 10/25/20 04:30 FiO2 100.0 10/25/20 04:30 Blood Gas Comments Coby well-mtf 10/25/20 04:30 Sodium 135 mmol/L (136-145) L 10/25/20 05:17 Corrected Sodium 139 mmol/L (136-145) 10/25/20 05:17 Potassium 3.7 mmol/L (3.5-5.1) 10/25/20 05:17 Chloride 100 mmol/L (98-107) 10/25/20 05:17 Carbon Dioxide 29.4 mmol/L (21-32) 10/25/20 05:17 BUN 14 mg/dL (7-18) 10/25/20 05:17 Creatinine 0.58 mg/dL (0.55-1.02) 10/25/20 05:17 Est GFR (MDRD) Af Amer > 60 (>60) 10/25/20 05:17 Est GFR (MDRD) Non-Af > 60 (>60) 10/25/20 05:17 Glucose 265 mg/dL (65-99) H 10/25/20 05:17 POC Glucose (mg/dL) 263 mg/dL (65-99) H 10/24/20 22:28 Calcium 7.8 mg/dL (8.5-10.1) L 10/25/20 05:17 Corrected Calcium 9.2 mg/dL (8.5-10.1) 10/25/20 05:17 Magnesium 2.4 mg/dL (1.7-2.9) 10/16/20 04:15 Ferritin 531 ng/mL (8-252) H 10/12/20 05:33 Total Bilirubin 2.00 mg/dL (0.2-1.0) H 10/25/20 05:17 AST 34 Units/L (15-37) 10/25/20 05:17 ALT 59 Units/L (12-78) 10/25/20 05:17 Alkaline Phosphatase 125 Units/L (46-116) H 10/25/20 05:17 Creatine Kinase 180 Units/L (26-192) 10/07/20 11:49 CK-MB (CK-2) < 1.0 ng/mL (0-4.0) 10/07/20 11:49 CK/CKMB % Calc 0.6 % (<4) 10/07/20 11:49 Troponin I < 0.02 ng/mL (0-1.5) 10/07/20 11:49 C-Reactive Protein < 0.50 mg/L (0-3.0) 10/24/20 04:40 B-Natriuretic Peptide 26.1 pg/mL (0-79) 10/24/20 04:40 Total Protein 5.6 g/dL (6.4-8.2) L 10/25/20 05:17 Albumin 2.3 g/dL (3.4-5.0) L 10/25/20 05:17 Globulin 3.3 g/dL (2.5-4.5) 10/25/20 05:17 Albumin/Globulin Ratio 0.7 Ratio (1.1-2.1) L 10/25/20 05:17 Prealbumin 33.9 mg/dL (18-35.7) 10/24/20 04:40 - Plan (1) Pneumonia due to COVID-19 virus Status: Acute Plan: MECHANICAL VENT, IV HYDRATION, POTASSIUM AND MAGNESIUM REPLACEMENT, IV ANTIBIOTICS, IV STEROIDS, NEBULIZER TREATMENTS, RESPIRATORY THERAPY, VERSED FOR SEDATION, GLUCOSE MONITORING WITH SLIDING SCALE COVERAGE. (2) Hypoxia Status: Acute
[2020-10-25] MEDS: HumuLIN R SUBCUT PRN ×3 (13:05→21:15)
[2020-10-25] MEDS: HUMULIN R IV SCH ×10 (13:20→21:20)
[2020-10-25] MEDS: MVI IV SCH ×10 (13:20→21:20)
[2020-10-25] MEDS: [UNRECOGNIZED DRUG - OTHER] IV SCH ×10 (13:20→21:20)
[2020-10-25] MEDS: CLINIMIX IV SCH ×10 (13:20→21:20)
[2020-10-25] MEDS: ACCUNEB 1.25 MG NEBULE NEB SCH ×2 (13:49→21:13)
--- NOTE | 2020-10-25 14:39 | RAD ---
CHEST, 1 VIEWHISTORY: FOLLOW-UP COVIDStudy: Single view of the chest.Comparison:October 24, 2020Findings:The cardiomediastinal silhouette is normal. No change in the appearance of bilateral insterstitial and airspace opacities. New nasogastric tube within the stomach. Osseous structures demonstrate no acute abnormality.IMPRESSION:1. No change from prior.Electronically signed by: SILVIA WARD (Oct 25, 2020 14:37:15)
[2020-10-25] MEDS ORDERED: ROBITUSSIN DM NG PRN (15:00)
[2020-10-25] MEDS ORDERED: NS 500 ML IV 500 ML IV ONE (18:08)
[2020-10-26] MEDS: SNACK - Diabetic Appropriate PO SCH (00:11)
[2020-10-26] MEDS: NS 1000 ML 1,000 ML IV SCH ×2 (00:14→16:39)
[2020-10-26] MEDS: VERSED 100 MG in NS 100 ML IV 80 ML IV PRN ×2 (00:17→20:17)
[2020-10-26] MEDS: DIPRIVAN PREMIX 1 GRAM IV 1,000 MG/100 ML VIAL IV PRN ×5 (01:33→21:18)
[2020-10-26] MEDS: SOLU-Medrol 125 MG VIAL IVP SCH ×4 (03:03→21:00)
[2020-10-26] MEDS: LEVAQUIN PREMIX IV 500 MG 500 MG/100 ML BAG IV SCH (03:04)
[2020-10-26 04:53] LABS: ABG BASE EXCESS 4.1 mmol/L (-2.0-2.0); ABG HCO3 28.5 mmol/L (22-26)
[2020-10-26] MEDS: MVI IV SCH ×15 (05:53→21:00)
[2020-10-26] MEDS: CLINIMIX IV SCH ×15 (05:53→21:00)
[2020-10-26] MEDS: HUMULIN R IV SCH ×15 (05:53→21:00)
[2020-10-26] MEDS: [UNRECOGNIZED DRUG - OTHER] IV SCH ×15 (05:53→21:00)
[2020-10-26] MEDS: ACCUNEB 1.25 MG NEBULE NEB SCH ×3 (05:55→21:15)
[2020-10-26 06:05] LABS: BASOPHILS % (AUTO) 0.2 % (0.2-1.0); HEMATOCRIT 32.5 % (36.0-47.0); HEMOGLOBIN 11.2 g/dL (12.0-16.0); LYMPHOCYTES # (AUTO) 0.2 X10^3/uL (1.3-2.9); MEAN CORPUSCULAR HEMOGLOBIN 33.2 pg (27.0-34.0); MEAN CORPUSCULAR HGB CONC 34.3 g/dL (33.0-35.0); MEAN CORPUSCULAR VOLUME 96.7 fL (80.0-100.0); MONOCYTES # (AUTO) 0.4 x10^3/uL (0.3-0.8); MONOCYTES % (AUTO) 3.3 % (0.0-13.0); NEUTROPHILS # (AUTO) 10.4 x10^3/uL (2.2-4.8); NEUTROPHILS % (AUTO) 94.5 % (42.0-75.0); PLATELET COUNT 70 X10^3/uL (150.0-450.0); RED BLOOD COUNT 3.36 X10^6/uL (3.5-5.4); RED CELL DISTRIBUTION WIDTH 13.8 % (11.6-16.5)
[2020-10-26 06:16] LABS: ALANINE AMINOTRANSFERASE 47 Units/L (12-78); ALBUMIN 2.1 g/dL (3.4-5.0); ALKALINE PHOSPHATASE 97 Units/L (46-116); ASPARTATE AMINO TRANSFERASE 22 Units/L (15-37); BLOOD UREA NITROGEN 17 mg/dL (7-18); CALCIUM 7.8 mg/dL (8.5-10.1); CARBON DIOXIDE 29.5 mmol/L (21-32); CHLORIDE 101 mmol/L (98-107); COR CA(FOR HYPOALB) 9.3 mg/dL (8.5-10.1); COR NA(FOR HYPERGLY) 145 mmol/L (136-145); CREATININE 0.78 mg/dL (0.55-1.02); SODIUM 137 mmol/L (136-145); TOTAL PROTEIN 5.1 g/dL (6.4-8.2); eGFR NON BLACK RACES > 60 (>60)
[2020-10-26] MEDS: HumuLIN R SUBCUT PRN ×3 (06:27→16:59)
--- NOTE | 2020-10-26 06:38 | RAD ---
HISTORYVENTILATOR DEPENDENCESTUDYCHEST, 1 [id number]/16/2021.TECHNIQUEAP view of the chestFINDINGSET tube in good position. NG tube courses below the visualized field of view. No acute fracture, malalignment, or aggressive osseous lesion. No significant change in basilar predominant hazy and interstitial bilateral pulmonary opacities. No definite pleural effusion or pneumothorax.IMPRESSIONNo significant change.Electronically signed by: Saad Sommers (Oct 26, 2020 06:36:12)
[2020-10-26 06:42] LABS: PLATELET MORPHOLOGY COMMENT NORMAL (NORMAL)
[2020-10-26] MEDS: PULMICORT NEB TX 0.5 MG NEB SCH ×2 (08:20→21:15)
[2020-10-26] MEDS: BROVANA IN SCH ×2 (08:20→21:15)
[2020-10-26] MEDS: LACRI-LUBE S.O.P. AFFEYE SCH ×2 (09:16→21:00)
--- NOTE | 2020-10-26 10:27 | PCM.PROG ---
Progress Note - Progress Note for Day of Date of Exam: 10/25/20 - Subjective Subjective: MS. RICHARDS WAS ADMITTED FOR TREATMENT OF COVID PNEUMONIA AND HYPOXIA. SHE RECEIVED [facility] INFUSION IN [place], [place] ON 10/05/20. SHE REMAINS IN THE INTENSIVE CARE UNIT. SHE WAS INTUBATED YESTERDAY DUE TO RESPIRATORY FAILURE. HER VENT SETTINGS THIS MORNING ARE: A/C, RATE 30, TIDAL VOLUME 475, PEEP 15, FI02 100. SATURATIONS HAVE BEEN 89-91% THIS MORNING AND THROUGHOUT THE NIGHT WHILE ON THE VENT. ON EXAMINATION, SHE IS SLIGHTLY TACHYCARDIC WITH HR 111. BILATERAL LUNGS ARE NOTED WITH RALES THROUGHOUT. ABDOMEN IS ROUND, SOFT, AND NON-TENDER WITH NORMAL BOWEL SOUNDS NOTED IN ALL QUADRANTS. HIS VITALS THIS MORNING ARE: 98.1-111-30-91%-169/96. LABS WERE OBTAINED. ABNORMAL LAB VALUES INCLUDE THE FOLLOWING: WBC 14.1, HCT 35.9, PLT COUNT 83, SODIUM 135, GLUCOSE 265, CALCIUM 7.8, TOTAL BILI 2.00, ALK PHOS 125, TOTAL PROTEIN 5.6, ALBUMIN 2.3. ABG REVEALED: PH 7.490, PC02 42, P02 49, HC03 32, 02 SAT 88, BASE EXCESS 7.8, A-A GRADIENT 612, FI02 100. SHE IS CURRENTLY RECEIVING NS AT 20 ML/HR, LEVAQUIN 500MG IV DAILY, IV DOXYCYCLINE 100MG BID, ASCORBIC ACID 1500MG IV Q6H, ALBUTEROL NEBS TID, PULMICORT NEBS BID, BROVANA 15MCG BID, TUSSIONEX 5ML GT Q12H PRN, ROBITUSSIN DM 10ML NG QID PRN, NORCO 1 TAB NG Q8H PRN, SOLU-MEDROL 125MG IV Q6H, MORPHINE 1MG Q6H PRN, ZOFRAN 4MG IV Q8H PRN, MAGIC MOUTHWASH TID, ACYCLOVIR OINTMENT TID, LOVENOX 85MG SC Q12H, HUMULIN R SLIDING SCALE, PROTONIX 40MG IV DAILY, THIAMINE 200MG IV BID, VERSED DRIP, PROPOFOL DRIP, ROCURONIUM DRIP, AND THE POTASSIUM PROTOCOL. TODAY, WE WILL START TPN AND INSERT AN OG TUBE FOR FEEDINGS AND MEDICATIONS. OTHERWISE, WE WILL FOLLOW UP WITH AM LABS, CHEST XRAY, ABG, AND CONTINUE TO MONITOR. TIME SPENT ON CLINICAL ASSESSMENT, REVIEWING LABS AND IMAGING, DECISION MAKING, AND DOCUMENTATION GREATER THAN 45 MINUTES. - Past Medical Family Social History Past Med/Fam/Surg Hx: No changes since H&P Allergies: Allergies ibuprofen Adverse Reaction (Verified 10/06/20 20:57) abd pain - Review of Systems ROS: No change since H&P - Vital Signs and I&O's Vital Signs: Temperature 97.8 F Pulse Rate [Apical] 71 Pulse Rate [Left] 81 Pulse Rate 83 Respiratory Rate 30 Blood Pressure [Right Arm] 117/65 Blood Pressure [Left Arm] 147/90 Blood Pressure 91/53 O2 Sat by Pulse Oximetry 91 Intake and Output: Intake & Output 10/23/20 10/24/20 10/25/20 10/26/20 11:59 11:59 11:59 11:59 Intake Total 2022 2591 / 2591 2968.4 / 2968.4 4016 / 4016 Output Total 1800 / 1800 1999 / 1999 1800 / 1800 2975 / 2975 Balance 223 / 223 591 / 591 1168.4 / 1168.4 1041 / 1041 - Physical Exam Oriented: Unable to test Eyes: Normal Ear: Normal Nose: Normal Throat: Normal Respiratory: Generalized, Diminished, Rales Cardiovascular: Normal : Normal Auscultation: Bowel Sounds: Normal Tenderness: Normal Skin: Normal Musculoskeletal: Normal Speech Pattern: Artificially Ventilated - Laboratory and Diagnostics Result Diagrams: 10/30/20 05:25 10/30/20 05:25 Labs: 10/24/20 20:55 Sputum - Endotracheal Wash Sputum Culture - Preliminary 10/24/20 20:55 Sputum - Endotracheal Wash - Final 10/07/20 11:51 Blood Blood Culture - Final 10/07/20 11:49 Blood Blood Culture - Final Laboratory WBC 11.0 X10^3/uL (3.6-10.0) H 10/26/20 04:59 RBC 3.36 X10^6/uL (3.5-5.4) L 10/26/20 04:59 Hgb 11.2 g/dL (12.0-16.0) L 10/26/20 04:59 Hct 32.5 % (36.0-47.0) L 10/26/20 04:59 MCV 96.7 fL (80.0-100.0) 10/26/20 04:59 MCH 33.2 pg (27.0-34.0) 10/26/20 04:59 MCHC 34.3 g/dL (33.0-35.0) 10/26/20 04:59 RDW 13.8 % (11.6-16.5) 10/26/20 04:59 Plt Count 70 X10^3/uL (150.0-450.0) L 10/26/20 04:59 Plt Count Comment Decreased (ADEQUATE) A 10/26/20 04:59 MPV 10.0 fL (7.4-11.0) 10/26/20 04:59 Neut % (Auto) 94.5 % (42.0-75.0) H 10/26/20 04:59 Lymph % (Auto) 2.0 % (21.0-51.0) L 10/26/20 04:59 [place] % (Auto) 3.3 % (0.0-13.0) 10/26/20 04:59 Eos % (Auto) 0.0 % (0.9-2.9) L 10/26/20 04:59 Baso % (Auto) 0.2 % (0.2-1.0) 10/26/20 04:59 Neut # (Auto) 10.4 x10^3/uL (2.2-4.8) H 10/26/20 04:59 Lymph # (Auto) 0.2 X10^3/uL (1.3-2.9) L 10/26/20 04:59 [place] # (Auto) 0.4 x10^3/uL (0.3-0.8) 10/26/20 04:59 Eos # (Auto) 0.0 x10^3/uL (0.0-0.2) 10/26/20 04:59 Baso # (Auto) 0.0 X10^3/uL (0.0-0.1) 10/26/20 04:59 Absolute Nucleated RBC 0.0 /100WBC 10/26/20 04:59 Total Counted 100 10/26/20 04:59 Neutrophils % (Manual) 98 % (39-76) H 10/26/20 04:59 Band Neutrophils % 2 % (0-10) 10/24/20 04:40 Lymphocytes % (Manual) 1 % (13-43) L 10/26/20 04:59 Monocytes % (Manual) 1 % (4-9) L 10/26/20 04:59 Nucleated RBCs 1 10/25/20 05:17 Plt Morphology Comment Normal (NORMAL) 10/26/20 04:59 RBC Morphology Normal (NORMAL) 10/26/20 04:59 D-Dimer 0.40 ug/ml (0.0-0.57) 10/12/20 05:33 Sample Site A line 10/26/20 05:00 ABG pH 7.450 (7.35-7.45) 10/26/20 05:00 ABG pCO2 41.0 mmHg (35.0-45.0) 10/26/20 05:00 ABG pO2 80.0 mmHg (80.0-100.0) 10/26/20 05:00 ABG HCO3 28.5 mmol/L (22-26) H 10/26/20 05:00 ABG O2 Saturation 96.0 % (90-100) 10/26/20 05:00 ABG Base Excess 4.1 mmol/L (-2.0-2.0) H 10/26/20 05:00 Loyd Test Na 10/26/20 05:00 A-a Gradient 582.0 mmHg 10/26/20 05:00 FiO2 100.0 10/26/20 05:00 Blood Gas Comments Coby well sw 10/26/20 05:00 Sodium 137 mmol/L (136-145) 10/26/20 04:59 Corrected Sodium 145 mmol/L (136-145) 10/26/20 04:59 Potassium 3.4 mmol/L (3.5-5.1) L 10/26/20 04:59 Chloride 101 mmol/L (98-107) 10/26/20 04:59 Carbon Dioxide 29.5 mmol/L (21-32) 10/26/20 04:59 BUN 17 mg/dL (7-18) 10/26/20 04:59 Creatinine 0.78 mg/dL (0.55-1.02) 10/26/20 04:59 Est GFR (MDRD) Af Amer > 60 (>60) 10/26/20 04:59 Est GFR (MDRD) Non-Af > 60 (>60) 10/26/20 04:59 Glucose 420 mg/dL (65-99) H 10/26/20 04:59 POC Glucose (mg/dL) 369 mg/dL (65-99) H 10/26/20 06:23 Calcium 7.8 mg/dL (8.5-10.1) L 10/26/20 04:59 Corrected Calcium 9.3 mg/dL (8.5-10.1) 10/26/20 04:59 Magnesium 2.4 mg/dL (1.7-2.9) 10/16/20 04:15 Ferritin 531 ng/mL (8-252) H 10/12/20 05:33 Total Bilirubin 1.30 mg/dL (0.2-1.0) H 10/26/20 04:59 AST 22 Units/L (15-37) 10/26/20 04:59 ALT 47 Units/L (12-78) 10/26/20 04:59 Alkaline Phosphatase 97 Units/L (46-116) 10/26/20 04:59 Creatine Kinase 180 Units/L (26-192) 10/07/20 11:49 CK-MB (CK-2) < 1.0 ng/mL (0-4.0) 10/07/20 11:49 CK/CKMB % Calc 0.6 % (<4) 10/07/20 11:49 Troponin I < 0.02 ng/mL (0-1.5) 10/07/20 11:49 C-Reactive Protein 0.60 mg/L (0-3.0) 10/26/20 04:59 B-Natriuretic Peptide 16.3 pg/mL (0-79) 10/26/20 04:59 Total Protein 5.1 g/dL (6.4-8.2) L 10/26/20 04:59 Albumin 2.1 g/dL (3.4-5.0) L 10/26/20 04:59 Globulin 3.0 g/dL (2.5-4.5) 10/26/20 04:59 Albumin/Globulin Ratio 0.7 Ratio (1.1-2.1) L 10/26/20 04:59 Prealbumin 33.9 mg/dL (18-35.7) 10/24/20 04:40 - Plan (1) Pneumonia due to COVID-19 virus Status: Acute Plan: MECHANICAL VENT, IV HYDRATION, TPN, POTASSIUM AND MAGNESIUM REPLACEMENT, IV ANTIBIOTICS, IV STEROIDS, NEBULIZER TREATMENTS, RESPIRATORY THERAPY, VERSED FOR SEDATION, GLUCOSE MONITORING WITH SLIDING SCALE COVERAGE. (2) Hypoxia Status: Acute
[2020-10-26] MEDS: PROTONIX INJ 40 MG VIAL IVP SCH (10:54)
[2020-10-26] MEDS: THIAMINE HCL INJ IVP SCH ×2 (10:54→21:00)
[2020-10-26] MEDS: ALBUMIN HUMAN 25%- 100 ML 100 ML IV SCH (10:55)
[2020-10-26] MEDS: VIBRAMYCIN 100 MG in D5W 250 ML IV 250 ML IV SCH ×2 (10:55→21:00)
[2020-10-26] MEDS: VITAMIN D3 125 mcg (5,000 UNITS) NG SCH (10:55)
[2020-10-26] MEDS: K-RIDER 10 MEQ/NS 100 ML 10 MEQ/100 ML BAG IV PRN ×2 (15:00→16:41)
[2020-10-26] MEDS ORDERED: DEXTROSE 10% 1,000 ML IV PRN (15:19)
[2020-10-26 15:47] LABS: MAGNESIUM 2.5 mg/dL (1.7-2.9); PHOSPHORUS 2.7 mg/dL (2.6-4.7)
[2020-10-26] MEDS: ZEMURON 100 MG VIAL 500 MG in NS 500 ML IV 450 ML IV PRN (17:30)
[2020-10-27] MEDS: DIPRIVAN PREMIX 1 GRAM IV 1,000 MG/100 ML VIAL IV PRN ×8 (00:23→22:50)
[2020-10-27] MEDS: SNACK - Diabetic Appropriate PO SCH ×2 (00:23→21:23)
[2020-10-27] MEDS: RESTORIL CAP 15 MG PO SCH ×2 (00:25→21:23)
[2020-10-27] MEDS: NS 1000 ML 1,000 ML IV SCH ×2 (01:11→14:00)
[2020-10-27] MEDS: HumuLIN R SUBCUT PRN ×4 (01:16→16:16)
[2020-10-27] MEDS: SOLU-Medrol 125 MG VIAL IVP SCH ×4 (02:43→21:24)
[2020-10-27] MEDS: LEVAQUIN PREMIX IV 500 MG 500 MG/100 ML BAG IV SCH (02:43)
[2020-10-27 04:14] LABS: ABG BASE EXCESS 4.1 mmol/L (-2.0-2.0); ABG HCO3 29.2 mmol/L (22-26)
[2020-10-27] MEDS: ACCUNEB 1.25 MG NEBULE NEB SCH ×3 (05:15→21:37)
[2020-10-27 05:31] LABS: BASOPHILS % (AUTO) 0.1 % (0.2-1.0); HEMATOCRIT 32.8 % (36.0-47.0); HEMOGLOBIN 11.1 g/dL (12.0-16.0); LYMPHOCYTES # (AUTO) 0.4 X10^3/uL (1.3-2.9); LYMPHOCYTES % (AUTO) 3.6 % (21.0-51.0); MEAN CORPUSCULAR HEMOGLOBIN 33.3 pg (27.0-34.0); MEAN CORPUSCULAR VOLUME 98.1 fL (80.0-100.0); MEAN PLATELET VOLUME 9.5 fL (7.4-11.0); MONOCYTES # (AUTO) 0.3 x10^3/uL (0.3-0.8); MONOCYTES % (AUTO) 2.7 % (0.0-13.0); NEUTROPHILS # (AUTO) 9.5 x10^3/uL (2.2-4.8); NEUTROPHILS % (AUTO) 93.6 % (42.0-75.0); PLATELET COUNT 59 X10^3/uL (150.0-450.0); RED BLOOD COUNT 3.35 X10^6/uL (3.5-5.4); RED CELL DISTRIBUTION WIDTH 14.2 % (11.6-16.5); WHITE BLOOD COUNT 10.1 X10^3/uL (3.6-10.0)
[2020-10-27 05:33] LABS: ALANINE AMINOTRANSFERASE 43 Units/L (12-78); ALBUMIN 2.6 g/dL (3.4-5.0); ALKALINE PHOSPHATASE 83 Units/L (46-116); ASPARTATE AMINO TRANSFERASE 18 Units/L (15-37); BLOOD UREA NITROGEN 17 mg/dL (7-18); CALCIUM 8.2 mg/dL (8.5-10.1); CHLORIDE 105 mmol/L (98-107); COR CA(FOR HYPOALB) 9.3 mg/dL (8.5-10.1); COR NA(FOR HYPERGLY) 149 mmol/L (136-145); SODIUM 141 mmol/L (136-145); TOTAL PROTEIN 5.2 g/dL (6.4-8.2); eGFR NON BLACK RACES > 60 (>60)
[2020-10-27 05:35] LABS: PREALBUMIN 33.5 mg/dL (18-35.7)
[2020-10-27 06:18] LABS: PLATELET MORPHOLOGY COMMENT NORMAL (NORMAL)
[2020-10-27] MEDS: POTASSIUM CHLORIDE LIQ 20 MEQ UDC PO PRN (06:23)
--- NOTE | 2020-10-27 07:25 | RAD ---
HISTORYRESP FAILURE, VENT, COVIDSTUDYCHEST x-ray, 1 VIEWCOMPARISONX-ray 10/26/2020FINDINGSEndotracheal tube terminates 4.1 cm above the norma. Enteric tube passes into the stomach. Heart is normal in size. Bilateral lung infiltrates are similar to prior study. No pneumothorax or pleural effusion is seen.IMPRESSIONAppearance of the chest is unchanged.Electronically signed by: Cody Leong (Oct 27, 2020 07:22:55)
[2020-10-27] MEDS: PULMICORT NEB TX 0.5 MG NEB SCH ×2 (08:15→21:37)
[2020-10-27] MEDS: BROVANA IN SCH ×2 (08:15→21:37)
[2020-10-27] MEDS: ALBUMIN HUMAN 25%- 100 ML 100 ML IV SCH (09:03)
[2020-10-27] MEDS: THIAMINE HCL INJ IVP SCH ×2 (09:04→21:26)
[2020-10-27] MEDS: [UNRECOGNIZED DRUG - OTHER] IV SCH ×5 (09:04)
[2020-10-27] MEDS: MVI IV SCH ×17 (09:04→21:23)
[2020-10-27] MEDS: HUMULIN R IV SCH ×17 (09:04→21:23)
[2020-10-27] MEDS: CLINIMIX IV SCH ×17 (09:04→21:23)
[2020-10-27] MEDS: PROTONIX INJ 40 MG VIAL IVP SCH (09:04)
[2020-10-27] MEDS: VIBRAMYCIN 100 MG in D5W 250 ML IV 250 ML IV SCH ×2 (09:04→21:26)
[2020-10-27] MEDS: LACRI-LUBE S.O.P. AFFEYE SCH ×2 (09:04→21:23)
[2020-10-27] MEDS: VITAMIN D3 125 mcg (5,000 UNITS) NG SCH (09:05)
[2020-10-27] MEDS: [UNRECOGNIZED DRUG - OTHER] IV SCH ×12 (10:35→21:23)
[2020-10-27] MEDS: ZEMURON 100 MG VIAL 500 MG in NS 500 ML IV 450 ML IV PRN (13:16)
[2020-10-27] MEDS: VERSED 100 MG in NS 100 ML IV 80 ML IV PRN (16:05)
[2020-10-28] MEDS: HumuLIN R SUBCUT PRN ×3 (00:18→17:30)
[2020-10-28] MEDS: DIPRIVAN PREMIX 1 GRAM IV 1,000 MG/100 ML VIAL IV PRN ×8 (02:00→23:00)
[2020-10-28] MEDS: SOLU-Medrol 125 MG VIAL IVP SCH ×4 (02:17→20:59)
[2020-10-28] MEDS: NS 1000 ML 1,000 ML IV SCH ×2 (02:17→14:49)
[2020-10-28] MEDS: LEVAQUIN PREMIX IV 500 MG 500 MG/100 ML BAG IV SCH (02:23)
[2020-10-28 05:37] LABS: ABG BASE EXCESS 4.8 mmol/L (-2.0-2.0)
[2020-10-28 05:38] LABS: ABG HCO3 30.4 mmol/L (22-26)
[2020-10-28 05:42] LABS: BASOPHILS % (AUTO) 0.3 % (0.2-1.0); HEMATOCRIT 31.3 % (36.0-47.0); HEMOGLOBIN 10.8 g/dL (12.0-16.0); LYMPHOCYTES # (AUTO) 0.2 X10^3/uL (1.3-2.9); LYMPHOCYTES % (AUTO) 1.6 % (21.0-51.0); MEAN CORPUSCULAR HEMOGLOBIN 33.4 pg (27.0-34.0); MEAN CORPUSCULAR HGB CONC 34.4 g/dL (33.0-35.0); MEAN CORPUSCULAR VOLUME 97.3 fL (80.0-100.0); MEAN PLATELET VOLUME 9.3 fL (7.4-11.0); MONOCYTES # (AUTO) 0.3 x10^3/uL (0.3-0.8); MONOCYTES % (AUTO) 2.4 % (0.0-13.0); NEUTROPHILS # (AUTO) 10.9 x10^3/uL (2.2-4.8); NEUTROPHILS % (AUTO) 95.7 % (42.0-75.0); PLATELET COUNT 52 X10^3/uL (150.0-450.0); RED BLOOD COUNT 3.22 X10^6/uL (3.5-5.4); RED CELL DISTRIBUTION WIDTH 14.1 % (11.6-16.5); WHITE BLOOD COUNT 11.4 X10^3/uL (3.6-10.0)
[2020-10-28 06:05] LABS: ALANINE AMINOTRANSFERASE 57 Units/L (12-78); ALBUMIN 2.8 g/dL (3.4-5.0); ALKALINE PHOSPHATASE 93 Units/L (46-116); ASPARTATE AMINO TRANSFERASE 32 Units/L (15-37); BLOOD UREA NITROGEN 17 mg/dL (7-18); CARBON DIOXIDE 29.2 mmol/L (21-32); CHLORIDE 108 mmol/L (98-107); COR NA(FOR HYPERGLY) 149 mmol/L (136-145); CREATININE 0.61 mg/dL (0.55-1.02); SODIUM 143 mmol/L (136-145); TOTAL PROTEIN 5.3 g/dL (6.4-8.2); eGFR NON BLACK RACES > 60 (>60)
[2020-10-28] MEDS: ACCUNEB 1.25 MG NEBULE NEB SCH ×3 (06:09→20:05)
[2020-10-28 06:17] LABS: PLATELET MORPHOLOGY COMMENT NORMAL (NORMAL)
[2020-10-28] MEDS: VERSED 100 MG in NS 100 ML IV 80 ML IV PRN (06:42)
[2020-10-28] MEDS: PROTONIX INJ 40 MG VIAL IVP SCH (08:18)
[2020-10-28] MEDS: HUMULIN R IV SCH ×16 (08:18→20:58)
[2020-10-28] MEDS: LACRI-LUBE S.O.P. AFFEYE SCH ×2 (08:18→20:59)
[2020-10-28] MEDS: ALBUMIN HUMAN 25%- 100 ML 100 ML IV SCH (08:18)
[2020-10-28] MEDS: MVI IV SCH ×16 (08:18→20:58)
[2020-10-28] MEDS: CLINIMIX IV SCH ×16 (08:18→20:58)
[2020-10-28] MEDS: [UNRECOGNIZED DRUG - OTHER] IV SCH ×6 (08:18)
[2020-10-28] MEDS: VIBRAMYCIN 100 MG in D5W 250 ML IV 250 ML IV SCH ×2 (08:19→21:00)
[2020-10-28] MEDS: THIAMINE HCL INJ IVP SCH ×2 (08:19→20:59)
[2020-10-28] MEDS: VITAMIN D3 125 mcg (5,000 UNITS) NG SCH (08:20)
--- NOTE | 2020-10-28 08:44 | RAD ---
HISTORYRESP FAILURE, VENT, COVIDSTUDYCHEST x-ray, 1 VIEWCOMPARISONX-ray 10/27/2020FINDINGSEndotracheal tube terminates 3.8 cm above the norma. Enteric tube passes into the stomach. Heart is normal in size. Small pleural effusions are similar to prior study. Bilateral hazy lung infiltrates are similar to prior study. No pneumothorax is seen.IMPRESSIONAppearance of the chest is unchanged.Electronically signed by: Cody Leong (Oct 28, 2020 08:42:14)
[2020-10-28] MEDS: BROVANA IN SCH ×2 (08:50→20:05)
[2020-10-28] MEDS: PULMICORT NEB TX 0.5 MG NEB SCH ×2 (08:50→20:05)
[2020-10-28] MEDS ORDERED: CITROMA NG ONE (09:54)
[2020-10-28] MEDS: [UNRECOGNIZED DRUG - OTHER] IV SCH ×10 (11:03→20:58)
[2020-10-28] MEDS: ZEMURON 100 MG VIAL 500 MG in NS 500 ML IV 450 ML IV PRN (11:25)
[2020-10-28] MEDS: SNACK - Diabetic Appropriate PO SCH (20:58)
[2020-10-28] MEDS: RESTORIL CAP 15 MG PO SCH (20:59)
[2020-10-29] MEDS: HumuLIN R SUBCUT PRN ×4 (00:23→23:27)
[2020-10-29] MEDS: SOLU-Medrol 125 MG VIAL IVP SCH ×4 (02:33→20:19)
[2020-10-29] MEDS: LEVAQUIN PREMIX IV 500 MG 500 MG/100 ML BAG IV SCH (02:33)
[2020-10-29] MEDS: DIPRIVAN PREMIX 1 GRAM IV 1,000 MG/100 ML VIAL IV PRN ×5 (02:37→23:00)
[2020-10-29] MEDS: VERSED 100 MG in NS 100 ML IV 80 ML IV PRN ×2 (02:38→15:14)
[2020-10-29] MEDS: ACCUNEB 1.25 MG NEBULE NEB SCH ×3 (06:15→20:57)
--- NOTE | 2020-10-29 06:32 | RAD ---
HISTORYSOBSTUDYCHEST, 1 VIEWCOMPARISONOne day prior.TECHNIQUEAP view of the chestFINDINGSET tube in good position. NG tube courses below the visualized field of view. Cardiac and mediastinal contours are within normal limits. Patient is rotated. No significant change in bilateral airspace and interstitial opacities. No definite pleural effusion or pneumothorax. Soft tissue attenuation limits evaluation.IMPRESSIONNo significant change.Electronically signed by: Saad Sommers (Oct 29, 2020 06:30:29)
[2020-10-29] MEDS: NS 1000 ML 1,000 ML IV SCH ×2 (06:36→20:20)
[2020-10-29] MEDS: ZEMURON 100 MG VIAL 500 MG in NS 500 ML IV 450 ML IV PRN ×2 (06:37→23:33)
[2020-10-29 06:41] LABS: BASOPHILS % (AUTO) 0.3 % (0.2-1.0); EOSINOPHILS % (AUTO) 0.1 % (0.9-2.9); HEMOGLOBIN 9.7 g/dL (12.0-16.0); LYMPHOCYTES # (AUTO) 0.2 X10^3/uL (1.3-2.9); LYMPHOCYTES % (AUTO) 2.9 % (21.0-51.0); MEAN CORPUSCULAR HEMOGLOBIN 33.2 pg (27.0-34.0); MEAN CORPUSCULAR HGB CONC 33.6 g/dL (33.0-35.0); MEAN CORPUSCULAR VOLUME 98.8 fL (80.0-100.0); MEAN PLATELET VOLUME 8.8 fL (7.4-11.0); MONOCYTES # (AUTO) 0.2 x10^3/uL (0.3-0.8); MONOCYTES % (AUTO) 2.9 % (0.0-13.0); NEUTROPHILS # (AUTO) 5.8 x10^3/uL (2.2-4.8); NEUTROPHILS % (AUTO) 93.8 % (42.0-75.0); PLATELET COUNT 41 X10^3/uL (150.0-450.0); RED BLOOD COUNT 2.94 X10^6/uL (3.5-5.4); RED CELL DISTRIBUTION WIDTH 14.7 % (11.6-16.5); WHITE BLOOD COUNT 6.2 X10^3/uL (3.6-10.0)
[2020-10-29 06:48] LABS: ALANINE AMINOTRANSFERASE 69 Units/L (12-78); ALBUMIN 2.6 g/dL (3.4-5.0); ALKALINE PHOSPHATASE 82 Units/L (46-116); ASPARTATE AMINO TRANSFERASE 34 Units/L (15-37); BLOOD UREA NITROGEN 17 mg/dL (7-18); CALCIUM 7.8 mg/dL (8.5-10.1); CHLORIDE 110 mmol/L (98-107); COR CA(FOR HYPOALB) 8.9 mg/dL (8.5-10.1); COR NA(FOR HYPERGLY) 151 mmol/L (136-145); CREATININE 0.49 mg/dL (0.55-1.02); SODIUM 145 mmol/L (136-145); TOTAL PROTEIN 4.9 g/dL (6.4-8.2); eGFR NON BLACK RACES > 60 (>60)
[2020-10-29 07:29] LABS: BAND NEUTROPHILS % 2 % (0-10); PLATELET MORPHOLOGY COMMENT NORMAL (NORMAL)
[2020-10-29 08:10] LABS: MAGNESIUM 2.6 mg/dL (1.7-2.9); PHOSPHORUS 1.6 mg/dL (2.6-4.7)
[2020-10-29] MEDS: VITAMIN D3 125 mcg (5,000 UNITS) NG SCH (08:23)
[2020-10-29] MEDS: LACRI-LUBE S.O.P. AFFEYE SCH ×2 (08:23→20:20)
[2020-10-29] MEDS: VIBRAMYCIN 100 MG in D5W 250 ML IV 250 ML IV SCH ×2 (08:24→20:21)
[2020-10-29] MEDS: ALBUMIN HUMAN 25%- 100 ML 100 ML IV SCH (08:24)
[2020-10-29] MEDS: PROTONIX INJ 40 MG VIAL IVP SCH (08:24)
[2020-10-29] MEDS: THIAMINE HCL INJ IVP SCH ×2 (08:24→20:21)
--- NOTE | 2020-10-29 08:35 | PCM.PROG ---
Progress Note - Progress Note for Day of Date of Exam: 10/26/20 - Subjective Subjective: MS. RICHARDS WAS ADMITTED FOR TREATMENT OF COVID PNEUMONIA AND HYPOXIA. SHE RECEIVED [facility] INFUSION IN [place], [place] ON 10/05/20. SHE REMAINS IN THE INTENSIVE CARE UNIT. SHE WAS INTUBATED YESTERDAY DUE TO RESPIRATORY FAILURE. HER VENT SETTINGS THIS MORNING ARE: A/C, RATE 30, TIDAL VOLUME 475, PEEP 15, FI02 100. SATURATIONS HAVE BEEN 89-91% THIS MORNING AND THROUGHOUT THE NIGHT WHILE ON THE VENT. ON EXAMINATION, SHE IS SLIGHTLY TACHYCARDIC WITH HR 111. BILATERAL LUNGS ARE NOTED WITH RALES THROUGHOUT. ABDOMEN IS ROUND, SOFT, AND NON-TENDER WITH NORMAL BOWEL SOUNDS NOTED IN ALL QUADRANTS. HIS VITALS THIS MORNING ARE: 97.8-83-90%-30-90/50. LABS WERE OBTAINED. ABNORMAL LAB VALUES INCLUDE THE FOLLOWING: WBC 11.0, RBC 3.36, HGB 11.2, HCT 32.5, PLT COUNT 70, POTASSIUM 3.4, GLUCOSE 420, CALCIUM 7.8, TOTAL BILI 1.30, TOTAL PROTEIN 5.1, ALBUMIN 2.1. ABG REVEALED: PH 7.450, PC02 41, P02 80, HC03 28.5, 02 SAT 96, BASE EXCESS 4.1, A-A GRADIENT 582, FI02 100. SHE IS CURRENTLY RECEIVING NS AT 20 ML/HR, TPN, LEVAQUIN 500MG IV DAILY, IV DOXYCYCLINE 100MG BID, ASCORBIC ACID 1500MG IV Q6H, ALBUTEROL NEBS TID, PULMICORT NEBS BID, BROVANA 15MCG BID, TUSSIONEX 5ML GT Q12H PRN, ROBITUSSIN DM 10ML NG QID PRN, NORCO 1 TAB NG Q8H PRN, SOLU-MEDROL 125MG IV Q6H, MORPHINE 1MG Q6H PRN, ZOFRAN 4MG IV Q8H PRN, MAGIC MOUTHWASH TID, ACYCLOVIR OINTMENT TID, LOVENOX 85MG SC Q12H, HUMULIN R SLIDING SCALE, PROTONIX 40MG IV DAILY, THIAMINE 200MG IV BID, VERSED DRIP, PROPOFOL DRIP, ROCURONIUM DRIP, AND THE POTASSIUM PROTOCOL. TODAY, WE WILL ADD ALBUMIN 25% IV DAILY. OTHERWISE, WE WILL FOLLOW UP WITH AM LABS, CHEST XRAY, ABG, AND CONTINUE TO MONITOR. TIME SPENT ON CLINICAL ASSESSMENT, REVIEWING LABS AND IMAGING, DECISION MAKING, AND DOCUMENTATION GREATER THAN 45 MINUTES. - Past Medical Family Social History Past Med/Fam/Surg Hx: No changes since H&P Allergies: Allergies ibuprofen Adverse Reaction (Verified 10/06/20 20:57) abd pain - Review of Systems ROS: No change since H&P - Vital Signs and I&O's Vital Signs: Temperature 97.6 F Pulse Rate [Apical] 71 Pulse Rate [Left] 81 Pulse Rate 83 Respiratory Rate 30 Blood Pressure [Right Arm] 117/65 Blood Pressure [Left Arm] 147/90 Blood Pressure 117/65 O2 Sat by Pulse Oximetry 94 Intake and Output: Intake & Output 10/26/20 10/27/20 10/28/20 10/29/20 11:59 11:59 11:59 11:59 Intake Total 4016 / 4016 7488 / 7488 6367 / 6367 5344 / 5344 Output Total 2975 / 2975 4125 / 4125 4675 / 4675 4100 / 4100 Balance 1041 / 1041 3363 / 3363 1692 / 1692 1244 / 1244 - Physical Exam Oriented: Unable to test Eyes: Normal Ear: Normal Nose: Normal Throat: Normal Respiratory: Generalized, Diminished, Rales Cardiovascular: Normal : Normal Auscultation: Bowel Sounds: Normal Palpation: Normal Tenderness: Normal Skin: Normal Musculoskeletal: Normal Psychiatric: Normal Mood Description: Anxious Affect: Anxious Speech Pattern: Artificially Ventilated - Laboratory and Diagnostics Result Diagrams: 10/30/20 05:25 10/30/20 05:25 Labs: 10/24/20 20:55 Sputum - Endotracheal Wash Sputum Culture - Final 10/24/20 20:55 Sputum - Endotracheal Wash - Final 10/07/20 11:51 Blood Blood Culture - Final 10/07/20 11:49 Blood Blood Culture - Final Laboratory WBC 6.2 X10^3/uL (3.6-10.0) 10/29/20 05:25 RBC 2.94 X10^6/uL (3.5-5.4) L 10/29/20 05:25 Hgb 9.7 g/dL (12.0-16.0) L 10/29/20 05:25 Hct 29.0 % (36.0-47.0) L 10/29/20 05:25 MCV 98.8 fL (80.0-100.0) 10/29/20 05:25 MCH 33.2 pg (27.0-34.0) 10/29/20 05:25 MCHC 33.6 g/dL (33.0-35.0) 10/29/20 05:25 RDW 14.7 % (11.6-16.5) 10/29/20 05:25 Plt Count 41 X10^3/uL (150.0-450.0) L 10/29/20 05:25 Plt Count Comment Decreased (ADEQUATE) A 10/29/20 05:25 MPV 8.8 fL (7.4-11.0) 10/29/20 05:25 Neut % (Auto) 93.8 % (42.0-75.0) H 10/29/20 05:25 Lymph % (Auto) 2.9 % (21.0-51.0) L 10/29/20 05:25 Wolfe % (Auto) 2.9 % (0.0-13.0) 10/29/20 05:25 Eos % (Auto) 0.1 % (0.9-2.9) L 10/29/20 05:25 Baso % (Auto) 0.3 % (0.2-1.0) 10/29/20 05:25 Neut # (Auto) 5.8 x10^3/uL (2.2-4.8) H 10/29/20 05:25 Lymph # (Auto) 0.2 X10^3/uL (1.3-2.9) L 10/29/20 05:25 Wolfe # (Auto) 0.2 x10^3/uL (0.3-0.8) L 10/29/20 05:25 Eos # (Auto) 0.0 x10^3/uL (0.0-0.2) 10/29/20 05:25 Baso # (Auto) 0.0 X10^3/uL (0.0-0.1) 10/29/20 05:25 Absolute Nucleated RBC 0.1 /100WBC 10/29/20 05:25 Total Counted 100 10/29/20 05:25 Neutrophils % (Manual) 94 % (39-76) H 10/29/20 05:25 Band Neutrophils % 2 % (0-10) 10/29/20 05:25 Lymphocytes % (Manual) 3 % (13-43) L 10/29/20 05:25 Monocytes % (Manual) 1 % (4-9) L 10/29/20 05:25 Nucleated RBCs 1 10/25/20 05:17 Plt Morphology Comment Normal (NORMAL) 10/29/20 05:25 RBC Morphology Normal (NORMAL) 10/29/20 05:25 D-Dimer 0.40 ug/ml (0.0-0.57) 10/12/20 05:33 Sample Site Art line 10/29/20 04:16 ABG pH 7.410 (7.35-7.45) 10/29/20 04:16 ABG pCO2 52.0 mmHg (35.0-45.0) H* 10/29/20 04:16 ABG pO2 76.0 mmHg (80.0-100.0) L 10/29/20 04:16 ABG HCO3 33.0 mmol/L (22-26) H* 10/29/20 04:16 ABG O2 Saturation 95.0 % (90-100) 10/29/20 04:16 ABG Base Excess 7.0 mmol/L (-2.0-2.0) H 10/29/20 04:16 Loyd Test N/a 10/29/20 04:16 A-a Gradient 465.0 mmHg 10/29/20 04:16 FiO2 85.0 10/29/20 04:16 Blood Gas Comments Coby well mts 10/29/20 04:16 Sodium 145 mmol/L (136-145) 10/29/20 05:25 Corrected Sodium 151 mmol/L (136-145) H 10/29/20 05:25 Potassium 3.5 mmol/L (3.5-5.1) 10/29/20 05:25 Chloride 110 mmol/L (98-107) H 10/29/20 05:25 Carbon Dioxide 31.0 mmol/L (21-32) 10/29/20 05:25 BUN 17 mg/dL (7-18) 10/29/20 05:25 Creatinine 0.49 mg/dL (0.55-1.02) L 10/29/20 05:25 Est GFR (MDRD) Af Amer > 60 (>60) 10/29/20 05:25 Est GFR (MDRD) Non-Af > 60 (>60) 10/29/20 05:25 Glucose 334 mg/dL (65-99) H 10/29/20 05:25 POC Glucose (mg/dL) 279 mg/dL (65-99) H 10/29/20 00:10 Calcium 7.8 mg/dL (8.5-10.1) L 10/29/20 05:25 Corrected Calcium 8.9 mg/dL (8.5-10.1) 10/29/20 05:25 Phosphorus 1.6 mg/dL (2.6-4.7) L 10/29/20 05:25 Magnesium 2.6 mg/dL (1.7-2.9) 10/29/20 05:25 Ferritin 531 ng/mL (8-252) H 10/12/20 05:33 Total Bilirubin 1.10 mg/dL (0.2-1.0) H 10/29/20 05:25 AST 34 Units/L (15-37) 10/29/20 05:25 ALT 69 Units/L (12-78) 10/29/20 05:25 Alkaline Phosphatase 82 Units/L (46-116) 10/29/20 05:25 Creatine Kinase 180 Units/L (26-192) 10/07/20 11:49 CK-MB (CK-2) < 1.0 ng/mL (0-4.0) 10/07/20 11:49 CK/CKMB % Calc 0.6 % (<4) 10/07/20 11:49 Troponin I < 0.02 ng/mL (0-1.5) 10/07/20 11:49 C-Reactive Protein 0.60 mg/L (0-3.0) 10/26/20 04:59 B-Natriuretic Peptide 16.3 pg/mL (0-79) 10/26/20 04:59 Total Protein 4.9 g/dL (6.4-8.2) L 10/29/20 05:25 Albumin 2.6 g/dL (3.4-5.0) L 10/29/20 05:25 Globulin 2.3 g/dL (2.5-4.5) L 10/29/20 05:25 Albumin/Globulin Ratio 1.1 Ratio (1.1-2.1) 10/29/20 05:25 Prealbumin 33.5 mg/dL (18-35.7) 10/27/20 03:50 Triglycerides 149 mg/dL (0-150) 10/29/20 05:25 - Plan (1) Pneumonia due to COVID-19 virus Status: Acute Plan: MECHANICAL VENT, IV HYDRATION, TPN, POTASSIUM AND MAGNESIUM REPLACEMENT, IV ANTIBIOTICS, IV STEROIDS, NEBULIZER TREATMENTS, RESPIRATORY THERAPY, VERSED FOR SEDATION, GLUCOSE MONITORING WITH SLIDING SCALE COVERAGE. (2) Hypoxia Status: Acute
[2020-10-29] MEDS: BROVANA IN SCH ×2 (09:40→20:57)
[2020-10-29] MEDS: PULMICORT NEB TX 0.5 MG NEB SCH ×2 (09:40→20:57)
--- NOTE | 2020-10-29 09:58 | PCM.PROG ---
Progress Note - Progress Note for Day of Date of Exam: 10/29/20 - Subjective Subjective: MS. RICHARDS WAS ADMITTED FOR TREATMENT OF COVID PNEUMONIA AND HYPOXIA. SHE RECEIVED [facility]OV INFUSION IN [place], [place] ON 10/05/20. SHE REMAINS IN THE INTENSIVE CARE UNIT. SHE WAS INTUBATED ON 10/24 DUE TO RESPIRATORY FAILURE. HER VENT SETTINGS THIS MORNING ARE: A/C, RATE 30, TIDAL VOLUME 475, PEEP 15, FI02 85. SATURATIONS HAVE BEEN 91-96% THIS MORNING AND THROUGHOUT THE NIGHT WHILE ON THE VENT. ON EXAMINATION, HEART IS REGULAR IN RATE AND RHYTHM. BILATERAL LUNGS ARE NOTED WITH DIMINISHED LUNG SOUNDS THROUGHOUT. ABDOMEN IS ROUND, SOFT, AND NON-TENDER WITH NORMAL BOWEL SOUNDS NOTED IN ALL QUADRANTS. HIS VITALS THIS MORNING ARE: 97.6-83-30-94%-117/65. LABS WERE OBTAINED. ABNORMAL LAB VALUES INCLUDE THE FOLLOWING: RBC 2.94, HGB 9.7, HCT 29.0, PLT COUNT 41, CHLORIDE 110, CREATININE 0.49, GLUCOSE 334, CALCIUM 7.8, PHOSPHORUS 1.6, TOTAL BILI 1.10, TOTAL PROTEIN 4.9, ALBUMIN 2.6. ABG REVEALED: PH 7.410, PC02 52, P02 76, HC03 33.0, 02 SAT 95, BASE EXCESS 7.0, A-A GRADIENT 465, FI02 85. SHE IS CURRENTLY RECEIVING NS AT 20 ML/HR, TPN, LEVAQUIN 500MG IV DAILY, IV DOXYCYCLINE 100MG BID, ALBUMIN 25% IV DAILY, ASCORBIC ACID 1500MG IV Q6H, ALBUTEROL NEBS TID, PULMICORT NEBS BID, BROVANA 15MCG BID, TUSSIONEX 5ML GT Q12H PRN, ROBITUSSIN DM 10ML NG QID PRN, NORCO 1 TAB NG Q8H PRN, SOLU-MEDROL 125MG IV Q6H, MORPHINE 1MG Q6H PRN, ZOFRAN 4MG IV Q8H PRN, MAGIC MOUTHWASH TID, ACYCLOVIR OIN TMENT TID, LOVENOX 85MG SC Q12H, HUMULIN R SLIDING SCALE, PROTONIX 40MG IV DAILY, THIAMINE 200MG IV BID, VERSED DRIP, PROPOFOL DRIP, ROCURONIUM DRIP, AND THE POTASSIUM PROTOCOL. TODAY, WE WILL ADD DIFLUCAN 200MG IV DAILY. OTHERWISE, WE WILL CONTINUE WITH CURRENT PLAN OF CARE. WE WILL FOLLOW UP WITH AM LABS, CHEST XRAY, ABG, AND CONTINUE TO MONITOR. TIME SPENT ON CLINICAL ASSESSMENT, REVIEWING LABS AND IMAGING, DECISION MAKING, AND DOCUMENTATION GREATER THAN 75 MINUTES. - Past Medical Family Social History Past Med/Fam/Surg Hx: No changes since H&P Allergies: Allergies ibuprofen Adverse Reaction (Verified 10/06/20 20:57) abd pain - Review of Systems ROS: No change since H&P - Vital Signs and I&O's Vital Signs: Temperature 97.6 F Pulse Rate [Apical] 71 Pulse Rate [Left] 81 Pulse Rate 83 Respiratory Rate 30 Blood Pressure [Right Arm] 117/65 Blood Pressure [Left Arm] 147/90 Blood Pressure 117/65 O2 Sat by Pulse Oximetry 94 Intake and Output: Intake & Output 10/26/20 10/27/20 10/28/20 10/29/20 11:59 11:59 11:59 11:59 Intake Total 4016 / 4016 7488 / 7488 6367 / 6367 5344 / 5344 Output Total 2975 / 2975 4125 / 4125 4675 / 4675 4100 / 4100 Balance 1041 / 1041 3363 / 3363 1692 / 1692 1244 / 1244 - Physical Exam Oriented: Unable to test Eyes: Normal Ear: Normal Nose: Normal Throat: Normal Respiratory: Generalized, Diminished Cardiovascular: Normal : Normal Auscultation: Bowel Sounds: Normal Palpation: Normal Tenderness: Normal Skin: Normal Musculoskeletal: Normal Psychiatric: Normal Mood Description: Anxious Affect: Anxious Speech Pattern: Artificially Ventilated - Laboratory and Diagnostics Result Diagrams: 10/30/20 05:25 10/30/20 05:25 Labs: 10/24/20 20:55 Sputum - Endotracheal Wash Sputum Culture - Final 10/24/20 20:55 Sputum - Endotracheal Wash - Final 10/07/20 11:51 Blood Blood Culture - Final 10/07/20 11:49 Blood Blood Culture - Final Laboratory WBC 6.2 X10^3/uL (3.6-10.0) 10/29/20 05:25 RBC 2.94 X10^6/uL (3.5-5.4) L 10/29/20 05:25 Hgb 9.7 g/dL (12.0-16.0) L 10/29/20 05:25 Hct 29.0 % (36.0-47.0) L 10/29/20 05:25 MCV 98.8 fL (80.0-100.0) 10/29/20 05:25 MCH 33.2 pg (27.0-34.0) 10/29/20 05:25 MCHC 33.6 g/dL (33.0-35.0) 10/29/20 05:25 RDW 14.7 % (11.6-16.5) 10/29/20 05:25 Plt Count 41 X10^3/uL (150.0-450.0) L 10/29/20 05:25 Plt Count Comment Decreased (ADEQUATE) A 10/29/20 05:25 MPV 8.8 fL (7.4-11.0) 10/29/20 05:25 Neut % (Auto) 93.8 % (42.0-75.0) H 10/29/20 05:25 Lymph % (Auto) 2.9 % (21.0-51.0) L 10/29/20 05:25 Mckinley % (Auto) 2.9 % (0.0-13.0) 10/29/20 05:25 Eos % (Auto) 0.1 % (0.9-2.9) L 10/29/20 05:25 Baso % (Auto) 0.3 % (0.2-1.0) 10/29/20 05:25 Neut # (Auto) 5.8 x10^3/uL (2.2-4.8) H 10/29/20 05:25 Lymph # (Auto) 0.2 X10^3/uL (1.3-2.9) L 10/29/20 05:25 Mckinley # (Auto) 0.2 x10^3/uL (0.3-0.8) L 10/29/20 05:25 Eos # (Auto) 0.0 x10^3/uL (0.0-0.2) 10/29/20 05:25 Baso # (Auto) 0.0 X10^3/uL (0.0-0.1) 10/29/20 05:25 Absolute Nucleated RBC 0.1 /100WBC 10/29/20 05:25 Total Counted 100 10/29/20 05:25 Neutrophils % (Manual) 94 % (39-76) H 10/29/20 05:25 Band Neutrophils % 2 % (0-10) 10/29/20 05:25 Lymphocytes % (Manual) 3 % (13-43) L 10/29/20 05:25 Monocytes % (Manual) 1 % (4-9) L 10/29/20 05:25 Nucleated RBCs 1 10/25/20 05:17 Plt Morphology Comment Normal (NORMAL) 10/29/20 05:25 RBC Morphology Normal (NORMAL) 10/29/20 05:25 D-Dimer 0.40 ug/ml (0.0-0.57) 10/12/20 05:33 Sample Site Art line 10/29/20 04:16 ABG pH 7.410 (7.35-7.45) 10/29/20 04:16 ABG pCO2 52.0 mmHg (35.0-45.0) H* 10/29/20 04:16 ABG pO2 76.0 mmHg (80.0-100.0) L 10/29/20 04:16 ABG HCO3 33.0 mmol/L (22-26) H* 10/29/20 04:16 ABG O2 Saturation 95.0 % (90-100) 10/29/20 04:16 ABG Base Excess 7.0 mmol/L (-2.0-2.0) H 10/29/20 04:16 Loyd Test N/a 10/29/20 04:16 A-a Gradient 465.0 mmHg 10/29/20 04:16 FiO2 85.0 10/29/20 04:16 Blood Gas Comments Coby well mts 10/29/20 04:16 Sodium 145 mmol/L (136-145) 10/29/20 05:25 Corrected Sodium 151 mmol/L (136-145) H 10/29/20 05:25 Potassium 3.5 mmol/L (3.5-5.1) 10/29/20 05:25 Chloride 110 mmol/L (98-107) H 10/29/20 05:25 Carbon Dioxide 31.0 mmol/L (21-32) 10/29/20 05:25 BUN 17 mg/dL (7-18) 10/29/20 05:25 Creatinine 0.49 mg/dL (0.55-1.02) L 10/29/20 05:25 Est GFR (MDRD) Af Amer > 60 (>60) 10/29/20 05:25 Est GFR (MDRD) Non-Af > 60 (>60) 10/29/20 05:25 Glucose 334 mg/dL (65-99) H 10/29/20 05:25 POC Glucose (mg/dL) 312 mg/dL (65-99) H 10/29/20 08:39 Calcium 7.8 mg/dL (8.5-10.1) L 10/29/20 05:25 Corrected Calcium 8.9 mg/dL (8.5-10.1) 10/29/20 05:25 Phosphorus 1.6 mg/dL (2.6-4.7) L 10/29/20 05:25 Magnesium 2.6 mg/dL (1.7-2.9) 10/29/20 05:25 Ferritin 531 ng/mL (8-252) H 10/12/20 05:33 Total Bilirubin 1.10 mg/dL (0.2-1.0) H 10/29/20 05:25 AST 34 Units/L (15-37) 10/29/20 05:25 ALT 69 Units/L (12-78) 10/29/20 05:25 Alkaline Phosphatase 82 Units/L (46-116) 10/29/20 05:25 Creatine Kinase 180 Units/L (26-192) 10/07/20 11:49 CK-MB (CK-2) < 1.0 ng/mL (0-4.0) 10/07/20 11:49 CK/CKMB % Calc 0.6 % (<4) 10/07/20 11:49 Troponin I < 0.02 ng/mL (0-1.5) 10/07/20 11:49 C-Reactive Protein 0.60 mg/L (0-3.0) 10/26/20 04:59 B-Natriuretic Peptide 16.3 pg/mL (0-79) 10/26/20 04:59 Total Protein 4.9 g/dL (6.4-8.2) L 10/29/20 05:25 Albumin 2.6 g/dL (3.4-5.0) L 10/29/20 05:25 Globulin 2.3 g/dL (2.5-4.5) L 10/29/20 05:25 Albumin/Globulin Ratio 1.1 Ratio (1.1-2.1) 10/29/20 05:25 Prealbumin 33.5 mg/dL (18-35.7) 10/27/20 03:50 Triglycerides 149 mg/dL (0-150) 10/29/20 05:25 - Plan (1) Pneumonia due to COVID-19 virus Status: Acute Plan: MECHANICAL VENT, IV HYDRATION, TPN, POTASSIUM AND MAGNESIUM REPLACEMENT, IV ANTIBIOTICS, IV STEROIDS, IV DIFLUCAN, NEBULIZER TREATMENTS, RESPIRATORY THERAPY, VERSED FOR SEDATION, GLUCOSE MONITORING WITH SLIDING SCALE COVERAGE. (2) Hypoxia Status: Acute
[2020-10-29] MEDS: DIFLUCAN 200 MG IV PREMIX* 200 MG/100 ML BAG IV SCH (10:04)
[2020-10-29] MEDS: [UNRECOGNIZED DRUG - OTHER] IV SCH ×15 (11:28→20:15)
[2020-10-29] MEDS: CLINIMIX IV SCH ×15 (11:28→20:15)
[2020-10-29] MEDS: MVI IV SCH ×15 (11:28→20:15)
[2020-10-29] MEDS: HUMULIN R IV SCH ×15 (11:28→20:15)
[2020-10-29] MEDS: RESTORIL CAP 15 MG PO SCH (20:15)
[2020-10-29] MEDS: SNACK - Diabetic Appropriate PO SCH (20:15)
[2020-10-30] MEDS: DIPRIVAN PREMIX 1 GRAM IV 1,000 MG/100 ML VIAL IV PRN ×8 (01:25→23:55)
[2020-10-30] MEDS: SOLU-Medrol 125 MG VIAL IVP SCH ×4 (02:38→20:58)
[2020-10-30] MEDS: LEVAQUIN PREMIX IV 500 MG 500 MG/100 ML BAG IV SCH (02:38)
[2020-10-30] MEDS: ACCUNEB 1.25 MG NEBULE NEB SCH ×4 (05:15→21:55)
[2020-10-30 05:37] LABS: ABG HCO3 34.2 mmol/L (22-26)
[2020-10-30 06:19] LABS: BASOPHILS % (AUTO) 0.4 % (0.2-1.0); EOSINOPHILS % (AUTO) 0.1 % (0.9-2.9); HEMATOCRIT 28.9 % (36.0-47.0); HEMOGLOBIN 9.7 g/dL (12.0-16.0); LYMPHOCYTES # (AUTO) 0.1 X10^3/uL (1.3-2.9); LYMPHOCYTES % (AUTO) 2.9 % (21.0-51.0); MEAN CORPUSCULAR HEMOGLOBIN 33.6 pg (27.0-34.0); MEAN CORPUSCULAR HGB CONC 33.6 g/dL (33.0-35.0); MEAN CORPUSCULAR VOLUME 99.9 fL (80.0-100.0); MEAN PLATELET VOLUME 8.9 fL (7.4-11.0); MONOCYTES # (AUTO) 0.1 x10^3/uL (0.3-0.8); MONOCYTES % (AUTO) 2.4 % (0.0-13.0); NEUTROPHILS # (AUTO) 4.1 x10^3/uL (2.2-4.8); NEUTROPHILS % (AUTO) 94.2 % (42.0-75.0); PLATELET COUNT 32 X10^3/uL (150.0-450.0); RED BLOOD COUNT 2.89 X10^6/uL (3.5-5.4); RED CELL DISTRIBUTION WIDTH 15.1 % (11.6-16.5); WHITE BLOOD COUNT 4.4 X10^3/uL (3.6-10.0)
[2020-10-30 06:31] LABS: ALANINE AMINOTRANSFERASE 71 Units/L (12-78); ALBUMIN 2.7 g/dL (3.4-5.0); ALKALINE PHOSPHATASE 85 Units/L (46-116); ASPARTATE AMINO TRANSFERASE 34 Units/L (15-37); BLOOD UREA NITROGEN 16 mg/dL (7-18); CALCIUM 7.8 mg/dL (8.5-10.1); CHLORIDE 111 mmol/L (98-107); COR CA(FOR HYPOALB) 8.8 mg/dL (8.5-10.1); COR NA(FOR HYPERGLY) 152 mmol/L (136-145); CREATININE 0.59 mg/dL (0.55-1.02); SODIUM 147 mmol/L (136-145); eGFR NON BLACK RACES > 60 (>60)
[2020-10-30] MEDS: NS 1000 ML 1,000 ML IV SCH ×2 (06:54→20:57)
[2020-10-30 07:28] LABS: PLATELET MORPHOLOGY COMMENT NORMAL (NORMAL)
[2020-10-30] MEDS: PROTONIX INJ 40 MG VIAL IVP SCH (08:22)
[2020-10-30] MEDS: DIFLUCAN 200 MG IV PREMIX* 200 MG/100 ML BAG IV SCH (08:22)
[2020-10-30] MEDS: THIAMINE HCL INJ IVP SCH ×2 (08:22→20:59)
[2020-10-30] MEDS: VIBRAMYCIN 100 MG in D5W 250 ML IV 250 ML IV SCH ×2 (08:23→20:59)
[2020-10-30] MEDS: LACRI-LUBE S.O.P. AFFEYE SCH ×2 (08:23→20:58)
[2020-10-30] MEDS: VITAMIN D3 125 mcg (5,000 UNITS) NG SCH (08:23)
[2020-10-30] MEDS: ALBUMIN HUMAN 25%- 100 ML 100 ML IV SCH (08:24)
[2020-10-30] MEDS: BROVANA IN SCH ×2 (08:55→21:54)
[2020-10-30] MEDS: PULMICORT NEB TX 0.5 MG NEB SCH ×2 (08:55→21:54)
[2020-10-30] MEDS: HumuLIN R SUBCUT PRN ×3 (09:29→23:56)
[2020-10-30] MEDS: VERSED 100 MG in NS 100 ML IV 80 ML IV PRN ×2 (09:34→20:36)
--- NOTE | 2020-10-30 09:51 | PCM.PROG ---
Progress Note - Progress Note for Day of Date of Exam: 10/30/20 - Subjective Subjective: MS. RICHARDS WAS ADMITTED FOR TREATMENT OF COVID PNEUMONIA AND HYPOXIA. SHE RECEIVED [facility] INFUSION IN [place], [place] ON 10/05/20. SHE REMAINS IN THE INTENSIVE CARE UNIT. SHE WAS INTUBATED ON 10/24 DUE TO RESPIRATORY FAILURE. HER VENT SETTINGS THIS MORNING ARE: A/C, RATE 30, TIDAL VOLUME 475, PEEP 15, FI02 85. SATURATIONS HAVE BEEN 91-96% THIS MORNING AND THROUGHOUT THE NIGHT WHILE ON THE VENT. ON EXAMINATION, HEART IS REGULAR IN RATE AND RHYTHM. BILATERAL LUNGS ARE NOTED WITH DIMINISHED LUNG SOUNDS THROUGHOUT. ABDOMEN IS ROUND, SOFT, AND NON-TENDER WITH NORMAL BOWEL SOUNDS NOTED IN ALL QUADRANTS. HIS VITALS THIS MORNING ARE: 96.3-77-30-96%-101/61. LABS WERE OBTAINED. ABNORMAL LAB VALUES INCLUDE THE FOLLOWING: RBC 2.89, RBC 9.7, HCT 28.9, PLT COUNT 32, SODIUM 147, CHLORIDE 111, CARBON DIOXIDE 34.0, GLUCOSE 327, CALCIUM 7.8, TOTAL BILI 1.10, TOTAL PROTEIN 5.0, ALBUMIN 2.7. ABG REVEALED: PH 7.410, PC02 54, P02 69, HC03 34.2, 02 SAT 94, BASE EXCESS 8.0, A-A GRADIENT 470, FI02 85. SHE IS CURRENTLY RECEIVING NS AT 20 ML/HR, TPN, LEVAQUIN 500MG IV DAILY, IV DOXYCYCLINE 100MG BID, ALBUMIN 25% IV DAILY, DIFLUCAN 200MG IV DAILY, ASCORBIC ACID 1500MG IV Q6H, ALBUTEROL NEBS TID, PULMICORT NEBS BID, BROVANA 15MCG BID, TUSSIONEX 5ML GT Q12H PRN, ROBITUSSIN DM 10ML NG QID PRN, NORCO 1 TAB NG Q8H PRN, SOLU-MEDROL 125MG IV Q6H, MORPHINE 1MG Q6H PRN, ZOFRAN 4MG IV Q8H PRN, MAGIC MOUTHWASH TID, ACYCLOVIR OINTMENT TID, LOVENOX 85MG SC Q12H, HUMULIN R SLIDING SCALE, PROTONIX 40MG IV DAILY, THIAMINE 200MG IV BID, VERSED DRIP, PROPOFOL DRIP, ROCURONIUM DRIP, AND THE POTASSIUM PROTOCOL. WE WILL CONTINUE WITH CURRENT PLAN OF CARE. OTHERWISE, WE WILL FOLLOW UP WITH AM LABS, CHEST XRAY, ABG, AND CONTINUE TO MONITOR. TIME SPENT ON CLINICAL ASSESSMENT, REVIEWING LABS AND IMAGING, DECISION MAKING, AND DOCUMENTATION GREATER THAN 75 MINUTES. - Past Medical Family Social History Past Med/Fam/Surg Hx: No changes since H&P Allergies: Allergies ibuprofen Adverse Reaction (Verified 10/06/20 20:57) abd pain - Review of Systems ROS: No change since H&P - Vital Signs and I&O's Vital Signs: Temperature 97.4 F Pulse Rate [Apical] 71 Pulse Rate [Left] 81 Pulse Rate 81 Respiratory Rate 30 Blood Pressure [Right Arm] 117/65 Blood Pressure [Left Arm] 147/90 Blood Pressure 98/58 O2 Sat by Pulse Oximetry 94 Intake and Output: Intake & Output 10/27/20 10/28/20 10/29/20 10/30/20 11:59 11:59 11:59 11:59 Intake Total 7488 / 7488 6367 / 6367 5344 / 5344 6377 / 6377 Output Total 4125 / 4125 4675 / 4675 4100 / 4100 5075 / 5075 Balance 3363 / 3363 1692 / 1692 1244 / 1244 1302 / 1302 - Physical Exam Oriented: Unable to test Eyes: Normal Ear: Normal Nose: Normal Throat: Normal Respiratory: Generalized, Diminished Cardiovascular: Normal : Normal Auscultation: Bowel Sounds: Normal Palpation: Normal Tenderness: Normal Skin: Normal Musculoskeletal: Normal Psychiatric: Normal Mood Description: Anxious Affect: Anxious Speech Pattern: Artificially Ventilated - Laboratory and Diagnostics Result Diagrams: 10/30/20 05:25 10/30/20 05:25 Labs: 10/24/20 20:55 Sputum - Endotracheal Wash Sputum Culture - Final 10/24/20 20:55 Sputum - Endotracheal Wash - Final 10/07/20 11:51 Blood Blood Culture - Final 10/07/20 11:49 Blood Blood Culture - Final Laboratory WBC 4.4 X10^3/uL (3.6-10.0) 10/30/20 05:25 RBC 2.89 X10^6/uL (3.5-5.4) L 10/30/20 05:25 Hgb 9.7 g/dL (12.0-16.0) L 10/30/20 05:25 Hct 28.9 % (36.0-47.0) L 10/30/20 05:25 MCV 99.9 fL (80.0-100.0) 10/30/20 05:25 MCH 33.6 pg (27.0-34.0) 10/30/20 05:25 MCHC 33.6 g/dL (33.0-35.0) 10/30/20 05:25 RDW 15.1 % (11.6-16.5) 10/30/20 05:25 Plt Count 32 X10^3/uL (150.0-450.0) L 10/30/20 05:25 Plt Count Comment Decreased (ADEQUATE) A 10/30/20 05:25 MPV 8.9 fL (7.4-11.0) 10/30/20 05:25 Neut % (Auto) 94.2 % (42.0-75.0) H 10/30/20 05:25 Lymph % (Auto) 2.9 % (21.0-51.0) L 10/30/20 05:25 Finney % (Auto) 2.4 % (0.0-13.0) 10/30/20 05:25 Eos % (Auto) 0.1 % (0.9-2.9) L 10/30/20 05:25 Baso % (Auto) 0.4 % (0.2-1.0) 10/30/20 05:25 Neut # (Auto) 4.1 x10^3/uL (2.2-4.8) 10/30/20 05:25 Lymph # (Auto) 0.1 X10^3/uL (1.3-2.9) L 10/30/20 05:25 Finney # (Auto) 0.1 x10^3/uL (0.3-0.8) L 10/30/20 05:25 Eos # (Auto) 0.0 x10^3/uL (0.0-0.2) 10/30/20 05:25 Baso # (Auto) 0.0 X10^3/uL (0.0-0.1) 10/30/20 05:25 Absolute Nucleated RBC 0.1 /100WBC 10/30/20 05:25 Total Counted 100 10/30/20 05:25 Neutrophils % (Manual) 98 % (39-76) H 10/30/20 05:25 Band Neutrophils % 2 % (0-10) 10/29/20 05:25 Lymphocytes % (Manual) 1 % (13-43) L 10/30/20 05:25 Monocytes % (Manual) 1 % (4-9) L 10/30/20 05:25 Nucleated RBCs 1 10/25/20 05:17 Plt Morphology Comment Normal (NORMAL) 10/30/20 05:25 RBC Morphology Normal (NORMAL) 10/30/20 05:25 D-Dimer 0.40 ug/ml (0.0-0.57) 10/12/20 05:33 Sample Site Art-line 10/30/20 05:18 ABG pH 7.410 (7.35-7.45) 10/30/20 05:18 ABG pCO2 54.0 mmHg (35.0-45.0) H* 10/30/20 05:18 ABG pO2 69.0 mmHg (80.0-100.0) L 10/30/20 05:18 ABG HCO3 34.2 mmol/L (22-26) H* 10/30/20 05:18 ABG O2 Saturation 94.0 % (90-100) 10/30/20 05:18 ABG Base Excess 8.0 mmol/L (-2.0-2.0) H 10/30/20 05:18 Loyd Test Na 10/30/20 05:18 A-a Gradient 470.0 mmHg 10/30/20 05:18 FiO2 85.0 10/30/20 05:18 Blood Gas Comments Coby well 10/30/20 05:18 Sodium 147 mmol/L (136-145) H 10/30/20 05:25 Corrected Sodium 152 mmol/L (136-145) H 10/30/20 05:25 Potassium 3.8 mmol/L (3.5-5.1) 10/30/20 05:25 Chloride 111 mmol/L (98-107) H 10/30/20 05:25 Carbon Dioxide 34.0 mmol/L (21-32) H 10/30/20 05:25 BUN 16 mg/dL (7-18) 10/30/20 05:25 Creatinine 0.59 mg/dL (0.55-1.02) 10/30/20 05:25 Est GFR (MDRD) Af Amer > 60 (>60) 10/30/20 05:25 Est GFR (MDRD) Non-Af > 60 (>60) 10/30/20 05:25 Glucose 327 mg/dL (65-99) H 10/30/20 05:25 POC Glucose (mg/dL) 256 mg/dL (65-99) H 10/30/20 08:39 Calcium 7.8 mg/dL (8.5-10.1) L 10/30/20 05:25 Corrected Calcium 8.8 mg/dL (8.5-10.1) 10/30/20 05:25 Phosphorus 1.6 mg/dL (2.6-4.7) L 10/29/20 05:25 Magnesium 2.6 mg/dL (1.7-2.9) 10/29/20 05:25 Ferritin 531 ng/mL (8-252) H 10/12/20 05:33 Total Bilirubin 1.10 mg/dL (0.2-1.0) H 10/30/20 05:25 AST 34 Units/L (15-37) 10/30/20 05:25 ALT 71 Units/L (12-78) 10/30/20 05:25 Alkaline Phosphatase 85 Units/L (46-116) 10/30/20 05:25 Creatine Kinase 180 Units/L (26-192) 10/07/20 11:49 CK-MB (CK-2) < 1.0 ng/mL (0-4.0) 10/07/20 11:49 CK/CKMB % Calc 0.6 % (<4) 10/07/20 11:49 Troponin I < 0.02 ng/mL (0-1.5) 10/07/20 11:49 C-Reactive Protein 0.60 mg/L (0-3.0) 10/26/20 04:59 B-Natriuretic Peptide 16.3 pg/mL (0-79) 10/26/20 04:59 Total Protein 5.0 g/dL (6.4-8.2) L 10/30/20 05:25 Albumin 2.7 g/dL (3.4-5.0) L 10/30/20 05:25 Globulin 2.3 g/dL (2.5-4.5) L 10/30/20 05:25 Albumin/Globulin Ratio 1.2 Ratio (1.1-2.1) 10/30/20 05:25 Prealbumin 33.5 mg/dL (18-35.7) 10/27/20 03:50 Triglycerides 149 mg/dL (0-150) 10/29/20 05:25 - Plan (1) Pneumonia due to COVID-19 virus Status: Acute Plan: MECHANICAL VENT, IV HYDRATION, TPN, POTASSIUM AND MAGNESIUM REPLACEMENT, IV ANTIBIOTICS, IV STEROIDS, IV DIFLUCAN, NEBULIZER TREATMENTS, RESPIRATORY THERAPY, VERSED FOR SEDATION, GLUCOSE MONITORING WITH SLIDING SCALE COVERAGE. (2) Hypoxia Status: Acute
--- NOTE | 2020-10-30 10:42 | RAD ---
HISTORYCOVID, shortness of breath, follow-upSTUDYChest AP [id number] is rotated slightly to the right. There is an endotrachea l tube in good position. There is a nasogastric tube coursing below the left hemidiaphragm. Its tip i s not visible. Heart size is normal. Bilateral ground-glass and alveolar infiltrates demonstrate lowe r lobe predominance and are unchanged from the prior examination considering a difference in film alia hnique. No pleural effusion is identified. No pneumothorax is identified. Bony thorax is unremarkable .IMPRESSIONNo change bilateral ground-glass and alveolar infiltrates when compared to the prior exami nationElectronically signed by: EDUIN LOPEZ (Oct 30, 2020 10:41:00)
[2020-10-30] MEDS: CLINIMIX IV SCH ×10 (11:30→20:57)
[2020-10-30] MEDS: HUMULIN R IV SCH ×10 (11:30→20:57)
[2020-10-30] MEDS: [UNRECOGNIZED DRUG - OTHER] IV SCH ×10 (11:30→20:57)
[2020-10-30] MEDS: MVI IV SCH ×10 (11:30→20:57)
[2020-10-30] MEDS: LASIX IVP SCH (16:15)
--- NOTE | 2020-10-30 19:13 | DR.CONSULT ---
CONSULT Consultation for Day of: Date: 10/30/20 Chief Complaint Chief Complaint: acute hypoxic respiratory failure Allergies Allergies Allergy/AdvReac Type Severity Reaction Status Date / Time ibuprofen AdvReac abd pain Verified 10/06/20 20:57 History of Present Illness History of Present Illness: 53 year old female who is currently hospitalized with acute hypoxic respiratory failure secondary to COVID-19 pneumonia since 10/06/2020 when she presented with several days history of viral illness, she received regeneron as outpatient after testing positive for COIVD-19, the patient's respiratory status progressively declined during her hospital stay and she eventually ended getting intubated and mechanically ventilated on 10/24/2020. she is currently in severe ARDS on 85% FIO2 and 15 PEEP, heavily sedated and paralyzed. she completed remdesivir, currently on steroids, and empiric antibiotics coverage. Past Medical History Additional Medical History: sciatica Past Surgical History Surgical History: Cholecystectomy Family History Family Medical History: Diabetes Mellitus and Cancer Social History Does patient currently use any type of tobacco product: No Have you used tobacco products in the last 12 months: No Type of Tobacco Use: None Does any household member use tobacco: No Alcohol Use: Occasionally Drug Use: None Medications Home Medications: ibuprofen Adverse Reaction (Verified 10/06/20 20:57) abd pain CONTINUE taking the following medications gabapentin 800 mg PO TID PRN 10/07/20 [History] hydroxyzine pamoate 50 mg PO TID PRN 10/07/20 [History] Physical Exam Vital Signs: Temperature 98.3 F Pulse Rate [Apical] 71 Pulse Rate [Left] 81 Pulse Rate 125 Respiratory Rate 30 Blood Pressure [Right Arm] 117/65 Blood Pressure [Left Arm] 147/90 Blood Pressure 151/79 O2 Sat by Pulse Oximetry 87 Plan Plan: Acute Hypoxic Respiratory Failure. ARDS COVID-19 pneumonia Superimposed bacterial pneumonia Plan: continue mechanical ventilation. adjust vent settings to protective low tidal volume parameters per ARDSnet protocol. optimize sedation. continue neuromuscular blockade. taper down steroids. intermittent diuresis. target a slightly negative fluid balance. monitor urine output and renal function. transition to enteral nutrition. correct electrolytes. continue current antibiotics coverage. follow cultures and de-escalate accordingly. This is a Telehealth encounter.
[2020-10-30] MEDS: SNACK - Diabetic Appropriate PO SCH (20:02)
[2020-10-30] MEDS: ZEMURON 100 MG VIAL 500 MG in NS 500 ML IV 450 ML IV PRN (20:48)
[2020-10-30] MEDS: RESTORIL CAP 15 MG PO SCH (20:58)
[2020-10-31] MEDS: LEVAQUIN PREMIX IV 500 MG 500 MG/100 ML BAG IV SCH (02:00)
[2020-10-31] MEDS: SOLU-Medrol 125 MG VIAL IVP SCH ×2 (02:01→08:13)
[2020-10-31] MEDS: DIPRIVAN PREMIX 1 GRAM IV 1,000 MG/100 ML VIAL IV PRN ×5 (03:17→22:45)
[2020-10-31 05:09] LABS: BASOPHILS % (AUTO) 0.2 % (0.2-1.0); HEMATOCRIT 31.9 % (36.0-47.0); HEMOGLOBIN 10.6 g/dL (12.0-16.0); LYMPHOCYTES # (AUTO) 0.2 X10^3/uL (1.3-2.9); LYMPHOCYTES % (AUTO) 2.4 % (21.0-51.0); MEAN CORPUSCULAR HEMOGLOBIN 33.6 pg (27.0-34.0); MEAN CORPUSCULAR HGB CONC 33.2 g/dL (33.0-35.0); MONOCYTES # (AUTO) 0.2 x10^3/uL (0.3-0.8); MONOCYTES % (AUTO) 3.7 % (0.0-13.0); NEUTROPHILS # (AUTO) 5.8 x10^3/uL (2.2-4.8); NEUTROPHILS % (AUTO) 93.7 % (42.0-75.0); PLATELET COUNT 36 X10^3/uL (150.0-450.0); RED BLOOD COUNT 3.15 X10^6/uL (3.5-5.4); RED CELL DISTRIBUTION WIDTH 15.9 % (11.6-16.5); WHITE BLOOD COUNT 6.2 X10^3/uL (3.6-10.0)
[2020-10-31 05:20] LABS: ALANINE AMINOTRANSFERASE 140 Units/L (12-78); ALBUMIN 3.1 g/dL (3.4-5.0); ALKALINE PHOSPHATASE 100 Units/L (46-116); ASPARTATE AMINO TRANSFERASE 68 Units/L (15-37); BLOOD UREA NITROGEN 16 mg/dL (7-18); CALCIUM 7.6 mg/dL (8.5-10.1); CARBON DIOXIDE 36.3 mmol/L (21-32); CHLORIDE 107 mmol/L (98-107); COR CA(FOR HYPOALB) 8.3 mg/dL (8.5-10.1); COR NA(FOR HYPERGLY) 153 mmol/L (136-145); CREATININE 0.59 mg/dL (0.55-1.02); SODIUM 147 mmol/L (136-145); TOTAL PROTEIN 5.4 g/dL (6.4-8.2); eGFR NON BLACK RACES > 60 (>60)
[2020-10-31] MEDS: HUMULIN R IV SCH ×10 (05:44→08:12)
[2020-10-31] MEDS: CLINIMIX IV SCH ×10 (05:44→08:12)
[2020-10-31] MEDS: MVI IV SCH ×10 (05:44→08:12)
[2020-10-31] MEDS: [UNRECOGNIZED DRUG - OTHER] IV SCH ×10 (05:44→08:12)
[2020-10-31 05:50] LABS: ABG BASE EXCESS 9.2 mmol/L (-2.0-2.0); ABG HCO3 40.2 mmol/L (22-26)
--- NOTE | 2020-10-31 06:00 | RAD ---
HISTORYFollow up respiratory failureSTUDYChest AP [id number] is an endotracheal tube in good position. There is a nasoga stric tube coursing below the left hemidiaphragm. Its tip is not visible. Heart size is normal. Bilat eral ground-glass and alveolar infiltrates are unchanged in degree or distribution from the prior exa mination. No pleural effusion or pneumothorax is identified. Bony thorax is unremarkable.IMPRESSIONNo change bilateral ground-glass and alveolar infiltrates when compared with the prior examinationElect ronically signed by: EDUIN LOPEZ (Oct 31, 2020 05:59:09)
[2020-10-31 06:10] LABS: ANISOCYTOSIS SLIGHT; HYPOCHROMASIA 1+; PLATELET MORPHOLOGY COMMENT NORMAL (NORMAL); STOMATOCYTES SLIGHT
[2020-10-31] MEDS: ACCUNEB 1.25 MG NEBULE NEB SCH ×3 (06:10→20:52)
[2020-10-31] MEDS: VERSED 100 MG in NS 100 ML IV 80 ML IV PRN (06:45)
[2020-10-31] MEDS: BROVANA IN SCH ×2 (08:10→20:52)
[2020-10-31] MEDS: HumuLIN R SUBCUT PRN ×2 (08:10→17:52)
[2020-10-31] MEDS: PULMICORT NEB TX 0.5 MG NEB SCH ×2 (08:10→20:52)
[2020-10-31] MEDS: NS 1000 ML 1,000 ML IV SCH ×2 (08:11→21:46)
[2020-10-31] MEDS: ALBUMIN HUMAN 25%- 100 ML 100 ML IV SCH (08:11)
[2020-10-31] MEDS: LACRI-LUBE S.O.P. AFFEYE SCH ×2 (08:12→21:44)
[2020-10-31] MEDS: PROTONIX INJ 40 MG VIAL IVP SCH (08:12)
[2020-10-31] MEDS: LASIX IVP SCH (08:12)
[2020-10-31] MEDS: DIFLUCAN 200 MG IV PREMIX* 200 MG/100 ML BAG IV SCH (08:12)
[2020-10-31] MEDS: VIBRAMYCIN 100 MG in D5W 250 ML IV 250 ML IV SCH (08:13)
[2020-10-31] MEDS: VITAMIN D3 125 mcg (5,000 UNITS) NG SCH (08:13)
[2020-10-31] MEDS: THIAMINE HCL INJ IVP SCH ×2 (08:13→21:43)
[2020-10-31] MEDS ORDERED: CLINIMIX IV SCH ×5 (09:00)
[2020-10-31] MEDS ORDERED: MVI IV SCH ×5 (09:00)
[2020-10-31] MEDS ORDERED: HUMULIN R IV SCH ×5 (09:00)
[2020-10-31] MEDS ORDERED: [UNRECOGNIZED DRUG - OTHER] IV SCH ×5 (09:00)
--- NOTE | 2020-10-31 10:59 | PCM.PROG ---
Progress Note - Progress Note for Day of Date of Exam: 10/31/20 - Subjective Subjective: MS. RICHARDS WAS ADMITTED FOR TREATMENT OF COVID PNEUMONIA AND HYPOXIA. SHE RECEIVED [facility]OV INFUSION IN [place], [place] ON 10/05/20. SHE REMAINS IN THE INTENSIVE CARE UNIT. SHE WAS INTUBATED ON 10/24 DUE TO RESPIRATORY FAILURE. WE CONSULTED WITH , [facility], YESTERDAY. HE RECOMMENDED ADJUSTMENT TO VENT SETTINGS, DIURETICS, AND TO WEAN STEROIDS. HE ALSO RECOMMENDED TO D/C TPN AND SWITCH TO ENTERAL FEEDINGS. HER VENT SETTINGS THIS MORNING ARE: A/C, RATE 30, TIDAL VOLUME 315, PEEP 15, FI02 85. SATURATIONS HAVE BEEN 84-91% THIS MORNING AND THROUGHOUT THE NIGHT WHILE ON THE VENT. ON EXAMINATION, HEART IS REGULAR IN RATE AND RHYTHM. BILATERAL LUNGS ARE NOTED WITH DIMINISHED LUNG SOUNDS THROUGHOUT. ABDOMEN IS ROUND, SOFT, AND NON-TENDER WITH NORMAL BOWEL SOUNDS NOTED IN ALL QUADRANTS. HIS VITALS THIS MORNING ARE: 97.6-100-30-91%-119/65. LABS WERE OBTAINED. ABNORMAL LAB VALUES INCLUDE THE FOLLOWING: RBC 3.15, HGB 10.6, HCT 31.9, PLT COUNT 36, SODIUM 147, CARBON DIOXIDE 36.3, GLUCOSE 348, CALCIUM 7.6, TOTAL BILI 1.40, AST 68, ALT 140, TOTAL PROTEIN 5.4, ALBUMIN 3.1. ABG REVEALED: PH 7.230, PC02 96, P02 47, HC03 40.2, 02 SAT 74, BASE EXCESS 9.2, A-A GRADIENT 368, FI02 75. SHE IS CURRENTLY RECEIVING NS AT 20 ML/HR, TPN, LEVAQUIN 500MG IV DAILY, IV DOXYCYCLINE 100MG BID, ALBUMIN 25% IV DAILY, DIFLUCAN 200MG IV DAILY, ALBUTEROL NEBS TID, PULMICORT NEBS BID, BROVANA 15MCG BID, TUSSIONEX 5ML GT Q12H PRN, ROBITUSSIN DM 10ML NG QID PRN, NORCO 1 TAB NG Q8H PRN, SOLU-MEDROL 125MG IV Q6H, MORPHINE 1MG Q6H PRN, ZOFRAN 4MG IV Q8H PRN, HUMULIN R SLIDING SCALE, PROTONIX 40MG IV DAILY, THIAMINE 200MG IV BID, VERSED DRIP, PROPOFOL DRIP, ROCURONIUM DRIP, AND THE POTASSIUM PROTOCOL. TODAY, WE WILL DISCONTINUE THE TPN, DOXYCYCLINE, AND ROBITUSSIN. WE WILL DECREASE SOLU-MEDROL TO 40MG IV Q8H. SHE RECEIVED TWO DOSES OF LASIX, ONE AT 1700 YESTERDAY AND ONE THIS MORNING. WE WILL CONTINUE WITH CURRENT PLAN OF CARE TODAY. OTHERWISE, WE WILL FOLLOW UP WITH AM LABS, CHEST XRAY, ABG, AND CONTINUE TO MONITOR. TIME SPENT ON CLINICAL ASSESSMENT, REVIEWING LABS AND IMAGING, DECISION MAKING, AND DOCUMENTATION GREATER THAN 75 MINUTES. - Past Medical Family Social History Past Med/Fam/Surg Hx: No changes since H&P Allergies: Allergies ibuprofen Adverse Reaction (Verified 10/06/20 20:57) abd pain - Review of Systems ROS: No change since H&P - Vital Signs and I&O's Vital Signs: Temperature 97.6 F Pulse Rate [Apical] 71 Pulse Rate [Left] 81 Pulse Rate 98 Respiratory Rate 30 Blood Pressure [Right Arm] 117/65 Blood Pressure [Left Arm] 147/90 Blood Pressure 136/72 O2 Sat by Pulse Oximetry 90 Intake and Output: Intake & Output 10/28/20 10/29/20 10/30/20 10/31/20 11:59 11:59 11:59 11:59 Intake Total 6367 / 6367 5344 / 5344 6477 / 6477 6681 / 6681 Output Total 4675 / 4675 4100 / 4100 5075 / 5075 3300 / 3300 Balance 1692 / 1692 1244 / 1244 1402 / 1402 3381 / 3381 - Physical Exam Oriented: Unable to test Eyes: Normal Ear: Normal Nose: Normal Throat: Normal Respiratory: Generalized, Diminished Cardiovascular: Normal : Normal Auscultation: Bowel Sounds: Normal Palpation: Normal Tenderness: Normal Skin: Normal Musculoskeletal: Normal Psychiatric: Normal Mood Description: Anxious Affect: Anxious Speech Pattern: Artificially Ventilated - Laboratory and Diagnostics Result Diagrams: 10/31/20 04:45 10/31/20 04:45 Labs: 10/24/20 20:55 Sputum - Endotracheal Wash Sputum Culture - Final 10/24/20 20:55 Sputum - Endotracheal Wash - Final 10/07/20 11:51 Blood Blood Culture - Final 10/07/20 11:49 Blood Blood Culture - Final Laboratory WBC 6.2 X10^3/uL (3.6-10.0) 10/31/20 04:45 RBC 3.15 X10^6/uL (3.5-5.4) L 10/31/20 04:45 Hgb 10.6 g/dL (12.0-16.0) L 10/31/20 04:45 Hct 31.9 % (36.0-47.0) L 10/31/20 04:45 MCV 101.0 fL (80.0-100.0) H 10/31/20 04:45 MCH 33.6 pg (27.0-34.0) 10/31/20 04:45 MCHC 33.2 g/dL (33.0-35.0) 10/31/20 04:45 RDW 15.9 % (11.6-16.5) 10/31/20 04:45 Plt Count 36 X10^3/uL (150.0-450.0) L 10/31/20 04:45 Plt Count Comment Decreased (ADEQUATE) A 10/31/20 04:45 MPV 9.0 fL (7.4-11.0) 10/31/20 04:45 Neut % (Auto) 93.7 % (42.0-75.0) H 10/31/20 04:45 Lymph % (Auto) 2.4 % (21.0-51.0) L 10/31/20 04:45 [place] % (Auto) 3.7 % (0.0-13.0) 10/31/20 04:45 Eos % (Auto) 0.0 % (0.9-2.9) L 10/31/20 04:45 Baso % (Auto) 0.2 % (0.2-1.0) 10/31/20 04:45 Neut # (Auto) 5.8 x10^3/uL (2.2-4.8) H 10/31/20 04:45 Lymph # (Auto) 0.2 X10^3/uL (1.3-2.9) L 10/31/20 04:45 [place] # (Auto) 0.2 x10^3/uL (0.3-0.8) L 10/31/20 04:45 Eos # (Auto) 0.0 x10^3/uL (0.0-0.2) 10/31/20 04:45 Baso # (Auto) 0.0 X10^3/uL (0.0-0.1) 10/31/20 04:45 Absolute Nucleated RBC 0.3 /100WBC 10/31/20 04:45 Total Counted 100 10/31/20 04:45 Neutrophils % (Manual) 96 % (39-76) H 10/31/20 04:45 Band Neutrophils % 2 % (0-10) 10/29/20 05:25 Lymphocytes % (Manual) 2 % (13-43) L 10/31/20 04:45 Monocytes % (Manual) 2 % (4-9) L 10/31/20 04:45 Nucleated RBCs 1 10/25/20 05:17 Plt Morphology Comment Normal (NORMAL) 10/31/20 04:45 RBC Morphology Abnormal (NORMAL) A 10/31/20 04:45 Dimorphic RBCs Slight 10/31/20 04:45 Hypochromasia 1+ A 10/31/20 04:45 Anisocytosis Slight A 10/31/20 04:45 Stomatocytes Slight A 10/31/20 04:45 D-Dimer 0.40 ug/ml (0.0-0.57) 10/12/20 05:33 Sample Site A line 10/31/20 05:00 ABG pH 7.230 (7.35-7.45) L 10/31/20 05:00 ABG pCO2 96.0 mmHg (35.0-45.0) H* 10/31/20 05:00 ABG pO2 47.0 mmHg (80.0-100.0) L* 10/31/20 05:00 ABG HCO3 40.2 mmol/L (22-26) H* 10/31/20 05:00 ABG O2 Saturation 74.0 % (90-100) L* 10/31/20 05:00 ABG Base Excess 9.2 mmol/L (-2.0-2.0) H 10/31/20 05:00 Loyd Test Na 10/31/20 05:00 A-a Gradient 368.0 mmHg 10/31/20 05:00 FiO2 75 10/31/20 05:00 Blood Gas Comments Coby well sw 10/31/20 05:00 Sodium 147 mmol/L (136-145) H 10/31/20 04:45 Corrected Sodium 153 mmol/L (136-145) H 10/31/20 04:45 Potassium 4.1 mmol/L (3.5-5.1) 10/31/20 04:45 Chloride 107 mmol/L (98-107) 10/31/20 04:45 Carbon Dioxide 36.3 mmol/L (21-32) H 10/31/20 04:45 BUN 16 mg/dL (7-18) 10/31/20 04:45 Creatinine 0.59 mg/dL (0.55-1.02) 10/31/20 04:45 Est GFR (MDRD) Af Amer > 60 (>60) 10/31/20 04:45 Est GFR (MDRD) Non-Af > 60 (>60) 10/31/20 04:45 Glucose 348 mg/dL (65-99) H 10/31/20 04:45 POC Glucose (mg/dL) 295 mg/dL (65-99) H 10/31/20 07:51 Calcium 7.6 mg/dL (8.5-10.1) L 10/31/20 04:45 Corrected Calcium 8.3 mg/dL (8.5-10.1) L 10/31/20 04:45 Phosphorus 1.6 mg/dL (2.6-4.7) L 10/29/20 05:25 Magnesium 2.6 mg/dL (1.7-2.9) 10/29/20 05:25 Ferritin 531 ng/mL (8-252) H 10/12/20 05:33 Total Bilirubin 1.40 mg/dL (0.2-1.0) H 10/31/20 04:45 AST 68 Units/L (15-37) H 10/31/20 04:45 ALT 140 Units/L (12-78) H 10/31/20 04:45 Alkaline Phosphatase 100 Units/L (46-116) 10/31/20 04:45 Creatine Kinase 180 Units/L (26-192) 10/07/20 11:49 CK-MB (CK-2) < 1.0 ng/mL (0-4.0) 10/07/20 11:49 CK/CKMB % Calc 0.6 % (<4) 10/07/20 11:49 Troponin I < 0.02 ng/mL (0-1.5) 10/07/20 11:49 C-Reactive Protein 1.50 mg/L (0-3.0) 10/31/20 04:45 B-Natriuretic Peptide 69.0 pg/mL (0-79) 10/31/20 04:45 Total Protein 5.4 g/dL (6.4-8.2) L 10/31/20 04:45 Albumin 3.1 g/dL (3.4-5.0) L 10/31/20 04:45 Globulin 2.3 g/dL (2.5-4.5) L 10/31/20 04:45 Albumin/Globulin Ratio 1.3 Ratio (1.1-2.1) 10/31/20 04:45 Prealbumin 33.5 mg/dL (18-35.7) 10/27/20 03:50 Triglycerides 149 mg/dL (0-150) 10/29/20 05:25 - Plan (1) Pneumonia due to COVID-19 virus Status: Acute Plan: MECHANICAL VENT, IV HYDRATION, POTASSIUM AND MAGNESIUM REPLACEMENT, IV ANT IBIOTICS, IV STEROIDS, IV DIFLUCAN, NEBULIZER TREATMENTS, RESPIRATORY THERAPY, VERSED FOR SEDATION, GLUCOSE MONITORING WITH SLIDING SCALE COVERAGE. (2) ARDS (adult respiratory distress syndrome) Status: Acute (3) Hypoxia Status: Acute
[2020-10-31] MEDS: NYSTATIN CREAM TOP SCH ×2 (11:10→21:44)
[2020-10-31] MEDS: SOLU-Medrol 40 MG VIAL IVP SCH ×2 (13:29→21:50)
[2020-10-31] MEDS: RESTORIL CAP 15 MG PO SCH (21:43)
[2020-10-31] MEDS: SNACK - Diabetic Appropriate PO SCH (21:45)
[2020-10-31] MEDS: ZEMURON 100 MG VIAL 500 MG in NS 500 ML IV 450 ML IV PRN (23:15)
[2020-11-01] MEDS: HumuLIN R SUBCUT PRN ×2 (00:08→17:24)
[2020-11-01] MEDS: DIPRIVAN PREMIX 1 GRAM IV 1,000 MG/100 ML VIAL IV PRN ×7 (02:00→21:01)
[2020-11-01] MEDS: VERSED 100 MG in NS 100 ML IV 80 ML IV PRN ×2 (03:10→13:20)
[2020-11-01] MEDS: LEVAQUIN PREMIX IV 500 MG 500 MG/100 ML BAG IV SCH (03:11)
[2020-11-01] MEDS: ACCUNEB 1.25 MG NEBULE NEB SCH ×3 (05:00→20:55)
[2020-11-01 05:20] LABS: ABG BASE EXCESS 17.5 mmol/L (-2.0-2.0)
[2020-11-01 05:22] LABS: ABG HCO3 47.5 mmol/L (22-26)
[2020-11-01] MEDS: SOLU-Medrol 40 MG VIAL IVP SCH ×3 (05:52→21:00)
--- NOTE | 2020-11-01 05:55 | RAD ---
PROCEDURE: Chest X-ray 1 View .HISTORY: Dyspnea and ventilator dependence.TECHNIQUE: AP view .COMPARISON: 10/31/2020.TECHNICAL QUALITY: Satisfactory .FINDINGS:Endotracheal tube and NG tube in good position.Unremarkable cardio mediastinal silhouette.Normal central vascularity.Continued patchy consolidation lung bases slightly improved on the left and unchanged on the right with no pleural fluid or pneumothorax.IMPRESSION:Mildly improved pneumonia left base and unchanged on the right.Electronically signed by: Jose Enrique Mcgregor (Nov 01, 2020 05:52:42)
[2020-11-01 06:11] LABS: MAGNESIUM 2.5 mg/dL (1.7-2.9); PHOSPHORUS 2.2 mg/dL (2.6-4.7)
[2020-11-01 06:15] LABS: ALANINE AMINOTRANSFERASE 157 Units/L (12-78); ALBUMIN 3.1 g/dL (3.4-5.0); ALKALINE PHOSPHATASE 97 Units/L (46-116); ASPARTATE AMINO TRANSFERASE 58 Units/L (15-37); BLOOD UREA NITROGEN 17 mg/dL (7-18); CALCIUM 7.9 mg/dL (8.5-10.1); CHLORIDE 107 mmol/L (98-107); COR CA(FOR HYPOALB) 8.6 mg/dL (8.5-10.1); COR NA(FOR HYPERGLY) 151 mmol/L (136-145); CREATININE 0.49 mg/dL (0.55-1.02); SODIUM 149 mmol/L (136-145); TOTAL PROTEIN 5.3 g/dL (6.4-8.2); eGFR NON BLACK RACES > 60 (>60)
[2020-11-01 06:17] LABS: BASOPHILS % (AUTO) 0.1 % (0.2-1.0); EOSINOPHILS % (AUTO) 0.2 % (0.9-2.9); HEMATOCRIT 28.5 % (36.0-47.0); HEMOGLOBIN 9.7 g/dL (12.0-16.0); LYMPHOCYTES # (AUTO) 0.5 X10^3/uL (1.3-2.9); LYMPHOCYTES % (AUTO) 12.6 % (21.0-51.0); MEAN CORPUSCULAR HEMOGLOBIN 34.3 pg (27.0-34.0); MEAN CORPUSCULAR HGB CONC 34.1 g/dL (33.0-35.0); MEAN CORPUSCULAR VOLUME 100.7 fL (80.0-100.0); MEAN PLATELET VOLUME 8.3 fL (7.4-11.0); MONOCYTES # (AUTO) 0.2 x10^3/uL (0.3-0.8); MONOCYTES % (AUTO) 5.9 % (0.0-13.0); NEUTROPHILS # (AUTO) 3.4 x10^3/uL (2.2-4.8); NEUTROPHILS % (AUTO) 81.2 % (42.0-75.0); PLATELET COUNT 24 X10^3/uL (150.0-450.0); RED BLOOD COUNT 2.83 X10^6/uL (3.5-5.4); RED CELL DISTRIBUTION WIDTH 15.4 % (11.6-16.5); WHITE BLOOD COUNT 4.2 X10^3/uL (3.6-10.0)
[2020-11-01 07:26] LABS: CARBON DIOXIDE 43.6 mmol/L (21-32)
[2020-11-01] MEDS: RESTORIL CAP 15 MG PO SCH (08:17)
[2020-11-01] MEDS: PROTONIX INJ 40 MG VIAL IVP SCH (08:18)
[2020-11-01] MEDS: THIAMINE HCL INJ IVP SCH ×2 (08:18→20:33)
[2020-11-01] MEDS: NYSTATIN CREAM TOP SCH ×2 (08:18→20:33)
[2020-11-01] MEDS: LACRI-LUBE S.O.P. AFFEYE SCH ×2 (08:18→20:34)
[2020-11-01] MEDS: VITAMIN D3 125 mcg (5,000 UNITS) NG SCH (08:18)
[2020-11-01] MEDS: DIFLUCAN 200 MG IV PREMIX* 200 MG/100 ML BAG IV SCH (08:18)
[2020-11-01] MEDS: ALBUMIN HUMAN 25%- 100 ML 100 ML IV SCH (08:37)
[2020-11-01] MEDS: PULMICORT NEB TX 0.5 MG NEB SCH ×2 (09:17→20:55)
[2020-11-01] MEDS: BROVANA IN SCH ×2 (09:17→20:55)
[2020-11-01] MEDS: K-RIDER 10 MEQ/NS 100 ML 10 MEQ/100 ML BAG IV PRN ×2 (09:22→10:19)
[2020-11-01] MEDS: DIAMOX PO SCH (10:19)
[2020-11-01] MEDS: NS 1000 ML 1,000 ML IV SCH ×2 (10:34→23:49)
--- NOTE | 2020-11-01 11:01 | PCM.PROG ---
Progress Note - Progress Note for Day of Date of Exam: 11/01/20 - Subjective Subjective: MS. RICHARDS WAS ADMITTED FOR TREATMENT OF COVID PNEUMONIA AND HYPOXIA. SHE RECEIVED [facility]OV INFUSION IN [place], [place] ON 10/05/20. SHE REMAINS IN THE INTENSIVE CARE UNIT. SHE WAS INTUBATED ON 10/24 DUE TO RESPIRATORY FAILURE. HER VENT SETTINGS THIS MORNING ARE: A/C, RATE 30, TIDAL VOLUME 315, PEEP 15, FI02 85. SATURATIONS HAVE BEEN 87-90% THIS MORNING AND THROUGHOUT THE NIGHT WHILE ON THE VENT. ON EXAMINATION, HEART IS REGULAR IN RATE AND RHYTHM. BILATERAL LUNGS ARE NOTED WITH DIMINISHED LUNG SOUNDS THROUGHOUT. ABDOMEN IS ROUND, SOFT, AND NON-TENDER WITH NORMAL BOWEL SOUNDS NOTED IN ALL QUADRANTS. HIS VITALS THIS MORNING ARE: 97.0-100-30-90%-138/72. LABS WERE OBTAINED. ABNORMAL LAB VALUES INCLUDE THE FOLLOWING: RBC 2.83, HGB 9.7, HCT 28.5, PLT COUNT 24, SODIUM 149, POTASSIUM 3.4, CARBON DIOXIDE 43.6, CREATININE 0.49, GLUCOSE 199, CALCIUM 7.9, TOTAL BILI 1.50, AST 58, ALT 157, TOTAL PROTEIN 5.3, ALBUMIN 3.1, TRIGLYCERIDES 168. ABG REVEALED: PH 7.340, PC02 88, P02 58, HC03 47.5, 02 SAT 88, BASE EXCESS 17.5, A-A GRADIENT 438, FI02 85. CHEST XRAY WAS OBTAINED AND REVEALED: Mildly improved pneumonia left base and unchanged on the right. SHE IS CURRENTLY RECEIVING NS AT 20 ML/HR, LEVAQUIN 500MG IV DAILY, ALBUMIN 25% IV DAILY, DIFLUCAN 200MG IV DAILY, ALBUTEROL NEBS TID, PULMICORT NEBS BID, BROVANA 15MCG BID, TUSSIONEX 5ML GT Q12H PRN, NORCO 1 TAB NG Q8H PRN, SOLU-MEDROL 40MG IV Q8H, MORPHINE 1MG Q6H PRN, ZOFRAN 4MG IV Q8H PRN, HUMULIN R SLIDING SCALE, PROTONIX 40MG IV DAILY, THIAMINE 200MG IV BID, VERSED DRIP, PROPOFOL DRIP, ROCURONIUM DRIP, AND THE POTASSIUM PROTOCOL. TODAY, WE WILL ADD DIAMOX 250MG GT DAILY. WE WILL ALSO ADMINISTER TWO PACKS OF PLATELETS TODAY. OTHERWISE, WE WILL CONTINUE WITH CURRENT PLAN OF CARE. WE WILL FOLLOW UP WITH AM LABS, CHEST XRAY, ABG, AND CONTINUE TO MONITOR. TIME SPENT ON CLINICAL ASSESSMENT, REVIEWING LABS AND IMAGING, DECISION MAKING, AND DOCUMENTATION GREATER THAN 75 MINUTES. - Past Medical Family Social History Past Med/Fam/Surg Hx: No changes since H&P Allergies: Allergies ibuprofen Adverse Reaction (Verified 10/06/20 20:57) abd pain - Review of Systems ROS: No change since H&P - Vital Signs and I&O's Vital Signs: Temperature 97.3 F Pulse Rate [Apical] 71 Pulse Rate [Left] 81 Pulse Rate 111 Respiratory Rate 30 Blood Pressure [Right Arm] 117/65 Blood Pressure [Left Arm] 147/90 Blood Pressure 149/73 O2 Sat by Pulse Oximetry 89 Intake and Output: Intake & Output 10/29/20 10/30/20 10/31/20 11/01/20 11:59 11:59 11:59 11:59 Intake Total 5344 / 5344 6477 / 6477 6781 / 6781 4830 / 4830 Output Total 4100 / 4100 5075 / 5075 3300 / 3300 4950 / 4950 Balance 1244 / 1244 1402 / 1402 3481 / 3481 -120 / -120 - Physical Exam Oriented: Unable to test Eyes: Normal Ear: Normal Nose: Normal Throat: Normal Respiratory: Generalized, Diminished Cardiovascular: Normal : Normal Auscultation: Bowel Sounds: Normal Palpation: Normal Tenderness: Normal Skin: Normal Musculoskeletal: Normal Psychiatric: Normal Mood Description: Anxious Affect: Anxious Speech Pattern: Artificially Ventilated - Laboratory and Diagnostics Result Diagrams: 11/01/20 05:10 11/01/20 05:10 Labs: 10/24/20 20:55 Sputum - Endotracheal Wash Sputum Culture - Final 10/24/20 20:55 Sputum - Endotracheal Wash - Final 10/07/20 11:51 Blood Blood Culture - Final 10/07/20 11:49 Blood Blood Culture - Final Laboratory WBC 4.2 X10^3/uL (3.6-10.0) 11/01/20 05:10 RBC 2.83 X10^6/uL (3.5-5.4) L 11/01/20 05:10 Hgb 9.7 g/dL (12.0-16.0) L 11/01/20 05:10 Hct 28.5 % (36.0-47.0) L 11/01/20 05:10 MCV 100.7 fL (80.0-100.0) H 11/01/20 05:10 MCH 34.3 pg (27.0-34.0) H 11/01/20 05:10 MCHC 34.1 g/dL (33.0-35.0) 11/01/20 05:10 RDW 15.4 % (11.6-16.5) 11/01/20 05:10 Plt Count 24 X10^3/uL (150.0-450.0) L 11/01/20 05:10 Plt Count Comment Cancelled 11/01/20 05:10 MPV 8.3 fL (7.4-11.0) 11/01/20 05:10 Neut % (Auto) 81.2 % (42.0-75.0) H 11/01/20 05:10 Lymph % (Auto) 12.6 % (21.0-51.0) L 11/01/20 05:10 [place] % (Auto) 5.9 % (0.0-13.0) 11/01/20 05:10 Eos % (Auto) 0.2 % (0.9-2.9) L 11/01/20 05:10 Baso % (Auto) 0.1 % (0.2-1.0) L 11/01/20 05:10 Neut # (Auto) 3.4 x10^3/uL (2.2-4.8) 11/01/20 05:10 Lymph # (Auto) 0.5 X10^3/uL (1.3-2.9) L 11/01/20 05:10 [place] # (Auto) 0.2 x10^3/uL (0.3-0.8) L 11/01/20 05:10 Eos # (Auto) 0.0 x10^3/uL (0.0-0.2) 11/01/20 05:10 Baso # (Auto) 0.0 X10^3/uL (0.0-0.1) 11/01/20 05:10 Absolute Nucleated RBC 0.5 /100WBC 11/01/20 05:10 Total Counted Cancelled 11/01/20 05:10 Neutrophils % (Manual) Cancelled 11/01/20 05:10 Band Neutrophils % Cancelled 11/01/20 05:10 Lymphocytes % (Manual) Cancelled 11/01/20 05:10 Monocytes % (Manual) Cancelled 11/01/20 05:10 Eosinophils % (Manual) Cancelled 11/01/20 05:10 Basophils % (Manual) Cancelled 11/01/20 05:10 Metamyelocytes % Cancelled 11/01/20 05:10 Myelocytes % Cancelled 11/01/20 05:10 Promyelocytes % Cancelled 11/01/20 05:10 Nucleated RBCs Cancelled 11/01/20 05:10 Atypical Lymphocytes Cancelled 11/01/20 05:10 Blast Cells Cancelled 11/01/20 05:10 Smudge Cells Cancelled 11/01/20 05:10 Toxic Granulation Cancelled 11/01/20 05:10 Dohle Bodies Cancelled 11/01/20 05:10 Gutierrez Rods Cancelled 11/01/20 05:10 Plt Clumps, EDTA Cancelled 11/01/20 05:10 Giant Platelets Cancelled 11/01/20 05:10 Plt Morphology Comment Cancelled 11/01/20 05:10 RBC Morphology Cancelled 11/01/20 05:10 Dimorphic RBCs Cancelled 11/01/20 05:10 Polychromasia Cancelled 11/01/20 05:10 Hypochromasia Cancelled 11/01/20 05:10 Poikilocytosis Cancelled 11/01/20 05:10 Basophilic Stippling Cancelled 11/01/20 05:10 Anisocytosis Cancelled 11/01/20 05:10 Microcytosis Cancelled 11/01/20 05:10 Macrocytosis Cancelled 11/01/20 05:10 Spherocytes Cancelled 11/01/20 05:10 Pappenheimer Bodies Cancelled 11/01/20 05:10 Sickle Cells Cancelled 11/01/20 05:10 Target Cells Cancelled 11/01/20 05:10 Tear Drop Cells Cancelled 11/01/20 05:10 Ovalocytes Cancelled 11/01/20 05:10 Stomatocytes Cancelled 11/01/20 05:10 Helmet Cells Cancelled 11/01/20 05:10 [place] Bodies Cancelled 11/01/20 05:10 [place] Rings Cancelled 11/01/20 05:10 [place] Cells Cancelled 11/01/20 05:10 Crenated Cell Cancelled 11/01/20 05:10 Acanthocytes (Spur) Cancelled 11/01/20 05:10 Rouleaux Cancelled 11/01/20 05:10 Schistocytes Cancelled 11/01/20 05:10 D-Dimer 0.40 ug/ml (0.0-0.57) 10/12/20 05:33 Sample Site Art-line 11/01/20 05:17 ABG pH 7.340 (7.35-7.45) L 11/01/20 05:17 ABG pCO2 88.0 mmHg (35.0-45.0) H* 11/01/20 05:17 ABG pO2 58.0 mmHg (80.0-100.0) L 11/01/20 05:17 ABG HCO3 47.5 mmol/L (22-26) H* 11/01/20 05:17 ABG O2 Saturation 88.0 % (90-100) L 11/01/20 05:17 ABG Base Excess 17.5 mmol/L (-2.0-2.0) H 11/01/20 05:17 Loyd Test Na 11/01/20 05:17 A-a Gradient 438.0 mmHg 11/01/20 05:17 FiO2 85.0 11/01/20 05:17 Blood Gas Comments Coby well-mtf 11/01/20 05:17 Sodium 149 mmol/L (136-145) H 11/01/20 05:10 Corrected Sodium 151 mmol/L (136-145) H 11/01/20 05:10 Potassium 3.4 mmol/L (3.5-5.1) L 11/01/20 05:10 Chloride 107 mmol/L (98-107) 11/01/20 05:10 Carbon Dioxide 43.6 mmol/L (21-32) H* 11/01/20 05:10 BUN 17 mg/dL (7-18) 11/01/20 05:10 Creatinine 0.49 mg/dL (0.55-1.02) L 11/01/20 05:10 Est GFR (MDRD) Af Amer > 60 (>60) 11/01/20 05:10 Est GFR (MDRD) Non-Af > 60 (>60) 11/01/20 05:10 Glucose 199 mg/dL (65-99) H 11/01/20 05:10 POC Glucose (mg/dL) 161 mg/dL (65-99) H 11/01/20 08:40 Calcium 7.9 mg/dL (8.5-10.1) L 11/01/20 05:10 Corrected Calcium 8.6 mg/dL (8.5-10.1) 11/01/20 05:10 Phosphorus 2.2 mg/dL (2.6-4.7) L 11/01/20 05:10 Magnesium 2.5 mg/dL (1.7-2.9) 11/01/20 05:10 Ferritin 531 ng/mL (8-252) H 10/12/20 05:33 Total Bilirubin 1.50 mg/dL (0.2-1.0) H 11/01/20 05:10 AST 58 Units/L (15-37) H 11/01/20 05:10 ALT 157 Units/L (12-78) H 11/01/20 05:10 Alkaline Phosphatase 97 Units/L (46-116) 11/01/20 05:10 Creatine Kinase 180 Units/L (26-192) 10/07/20 11:49 CK-MB (CK-2) < 1.0 ng/mL (0-4.0) 10/07/20 11:49 CK/CKMB % Calc 0.6 % (<4) 10/07/20 11:49 Troponin I < 0.02 ng/mL (0-1.5) 10/07/20 11:49 C-Reactive Protein 0.60 mg/L (0-3.0) 11/01/20 05:10 B-Natriuretic Peptide 47.2 pg/mL (0-79) 11/01/20 05:10 Total Protein 5.3 g/dL (6.4-8.2) L 11/01/20 05:10 Albumin 3.1 g/dL (3.4-5.0) L 11/01/20 05:10 Globulin 2.2 g/dL (2.5-4.5) L 11/01/20 05:10 Albumin/Globulin Ratio 1.4 Ratio (1.1-2.1) 11/01/20 05:10 Prealbumin 33.5 mg/dL (18-35.7) 10/27/20 03:50 Triglycerides 168 mg/dL (0-150) H 11/01/20 05:10 - Plan (1) Pneumonia due to COVID-19 virus Status: Acute Plan: MECHANICAL VENT, IV HYDRATION, POTASSIUM AND MAGNESIUM REPLACEMENT, IV ANTIBIOTICS, IV STEROIDS, IV DIFLUCAN, NEBULIZER TREATMENTS, RESPIRATORY THERAPY, VERSED FOR SEDATION, GLUCOSE MONITORING WITH SLIDING SCALE COVERAGE. (2) ARDS (adult respiratory distress syndrome) Status: Acute (3) Hypoxia Status: Acute (4) Thrombocytopenia Status: Acute Plan: TRANSFUSE PLATELETS
[2020-11-01] MEDS: MORPHINE SULFATE INJ 2 MG INJ IVP PRN ×2 (13:44→21:17)
[2020-11-01] MEDS: ZEMURON 100 MG VIAL 500 MG in NS 500 ML IV 450 ML IV PRN (14:40)
[2020-11-01] MEDS ORDERED: DIAMOX PO ONE (16:00)
[2020-11-01] MEDS ORDERED: NS 100 ML IV 100 ML ONE (16:23)
[2020-11-01] MEDS: TYLENOL 325 MG TAB PO PRN (19:51)
[2020-11-01] MEDS: SNACK - Diabetic Appropriate PO SCH (19:51)
[2020-11-02] MEDS: HumuLIN R SUBCUT PRN ×2 (00:20→08:56)
[2020-11-02] MEDS: DIPRIVAN PREMIX 1 GRAM IV 1,000 MG/100 ML VIAL IV PRN ×6 (00:22→21:22)
[2020-11-02] MEDS: TYLENOL 325 MG TAB PO PRN (01:15)
[2020-11-02] MEDS: LEVAQUIN PREMIX IV 500 MG 500 MG/100 ML BAG IV SCH (02:32)
[2020-11-02] MEDS: VERSED 100 MG in NS 100 ML IV 80 ML IV PRN ×2 (03:35→13:45)
[2020-11-02 04:57] LABS: BASOPHILS % (AUTO) 0 % (0.2-1.0); HEMATOCRIT 29.3 % (36.0-47.0); HEMOGLOBIN 9.7 g/dL (12.0-16.0); LYMPHOCYTES # (AUTO) 0.4 X10^3/uL (1.3-2.9); LYMPHOCYTES % (AUTO) 7.9 % (21.0-51.0); MEAN CORPUSCULAR HEMOGLOBIN 33.7 pg (27.0-34.0); MEAN CORPUSCULAR HGB CONC 33.1 g/dL (33.0-35.0); MEAN CORPUSCULAR VOLUME 101.6 fL (80.0-100.0); MEAN PLATELET VOLUME 8.5 fL (7.4-11.0); MONOCYTES # (AUTO) 0.3 x10^3/uL (0.3-0.8); MONOCYTES % (AUTO) 7.2 % (0.0-13.0); NEUTROPHILS % (AUTO) 84.9 % (42.0-75.0); PLATELET COUNT 52 X10^3/uL (150.0-450.0); RED BLOOD COUNT 2.89 X10^6/uL (3.5-5.4); RED CELL DISTRIBUTION WIDTH 15.9 % (11.6-16.5); WHITE BLOOD COUNT 4.7 X10^3/uL (3.6-10.0)
[2020-11-02 04:58] LABS: ABG BASE EXCESS 11.9 mmol/L (-2.0-2.0)
[2020-11-02 04:59] LABS: ABG HCO3 42.3 mmol/L (22-26)
[2020-11-02] MEDS: ACCUNEB 1.25 MG NEBULE NEB SCH ×3 (05:00→21:49)
[2020-11-02 05:05] LABS: PREALBUMIN 36.9 mg/dL (18-35.7)
[2020-11-02] MEDS: SOLU-Medrol 40 MG VIAL IVP SCH ×3 (05:16→21:29)
[2020-11-02 05:17] LABS: ALANINE AMINOTRANSFERASE 189 Units/L (12-78); ALBUMIN 3.4 g/dL (3.4-5.0); ALKALINE PHOSPHATASE 121 Units/L (46-116); ASPARTATE AMINO TRANSFERASE 70 Units/L (15-37); BLOOD UREA NITROGEN 18 mg/dL (7-18); CALCIUM 8.1 mg/dL (8.5-10.1); CARBON DIOXIDE 39.7 mmol/L (21-32); CHLORIDE 106 mmol/L (98-107); COR NA(FOR HYPERGLY) 149 mmol/L (136-145); CREATININE 0.56 mg/dL (0.55-1.02); SODIUM 145 mmol/L (136-145); TOTAL PROTEIN 5.6 g/dL (6.4-8.2); eGFR NON BLACK RACES > 60 (>60)
--- NOTE | 2020-11-02 06:35 | RAD ---
HISTORYSOB, VENT DEPENDENCESTUDYCHEST, 1 [id number]/23/2021.TECHNIQUEAP view of the chestFINDINGSET tube in good position. NG tube courses below the visualized field of view. Patient is rotated. Cardiac and mediastinal contours are within normal limits. No significant change in diffuse bilateral hazy pulmonary opacities. No definite pleural effusion or pneumothorax.IMPRESSIONNo significant change.Electronically signed by: Saad Sommers (Nov 02, 2020 06:33:40)
[2020-11-02] MEDS: ZEMURON 100 MG VIAL 500 MG in NS 500 ML IV 450 ML IV PRN ×2 (07:30→23:20)
[2020-11-02] MEDS: ALBUMIN HUMAN 25%- 100 ML 100 ML IV SCH (08:29)
[2020-11-02] MEDS: DIAMOX PO SCH (08:30)
[2020-11-02] MEDS: DIFLUCAN 200 MG IV PREMIX* 200 MG/100 ML BAG IV SCH (08:30)
[2020-11-02] MEDS: LACRI-LUBE S.O.P. AFFEYE SCH ×2 (08:30→21:28)
[2020-11-02] MEDS: PROTONIX INJ 40 MG VIAL IVP SCH (08:31)
[2020-11-02] MEDS: NYSTATIN CREAM TOP SCH ×2 (08:31→21:28)
[2020-11-02] MEDS: THIAMINE HCL INJ IVP SCH ×2 (08:31→21:28)
[2020-11-02] MEDS: VITAMIN D3 125 mcg (5,000 UNITS) NG SCH (08:33)
[2020-11-02] MEDS: PULMICORT NEB TX 0.5 MG NEB SCH ×2 (08:48→21:49)
[2020-11-02] MEDS: BROVANA IN SCH ×2 (08:48→21:49)
--- NOTE | 2020-11-02 11:16 | PCM.PROG ---
Progress Note - Progress Note for Day of Date of Exam: 11/02/20 - Subjective Subjective: MS. RICHARDS WAS ADMITTED FOR TREATMENT OF COVID PNEUMONIA AND HYPOXIA. SHE RECEIVED [facility]OV INFUSION IN [place], [place] ON 10/05/20. SHE REMAINS IN THE INTENSIVE CARE UNIT. SHE WAS INTUBATED ON 10/24 DUE TO RESPIRATORY FAILURE. HER VENT SETTINGS THIS MORNING ARE: A/C, RATE 30, TIDAL VOLUME 315, PEEP 15, FI02 85. SATURATIONS HAVE BEEN 87-91% THIS MORNING AND THROUGHOUT THE NIGHT WHILE ON THE VENT. ON EXAMINATION, HEART IS REGULAR IN RATE AND RHYTHM. BILATERAL LUNGS ARE NOTED WITH DIMINISHED LUNG SOUNDS THROUGHOUT. ABDOMEN IS ROUND, SOFT, AND NON-TENDER WITH NORMAL BOWEL SOUNDS NOTED IN ALL QUADRANTS. HIS VITALS THIS MORNING ARE: [id number]%-136/65. LABS WERE OBTAINED. ABNORMAL LAB VALUES INCLUDE THE FOLLOWING: RBC 2.89, HGB 9.7, HCT 29.3, PLT COUNT 52, CARBON DIOXIDE 39.7, GLUCOSE 278, CALCIUM 8.1, TOTAL BILI 2.30, AST 70, ALT 189, ALK PHOS 121, TOTAL PROTEIN 5.6. ABG REVEALED: PH 7.280, PC02 90, P02 55, HC03 42.3, 02 SAT 84, BASE EXCESS 11.9, A-A GRADINET 439, FI02 85. CHEST XRAY WAS OBTAINED AND REVEALED: ET tube in good position. NG tube courses below the visualized field of view. Patient is rotated. Cardiac and mediastinal contours are within normal limits. No significant change in diffuse bilateral hazy pulmonary opacities. No definite pleural effusion or pneumothorax. SHE IS CURRENTLY RECEIVING NS AT 20 ML/HR, LEVAQUIN 500MG IV DAILY, ALBUMIN 25% IV DAILY, DIAMOX 250MG GT DAILY, DIFLUCAN 200MG IV DAILY, ALBUTEROL NEBS TID, PULMICORT NEBS BID, BROVANA 15MCG BID, TUSSIONEX 5ML GT Q12H PRN, NORCO 1 TAB NG Q8H PRN, SOLU-MEDROL 40MG IV Q8H, MORPHINE 1MG Q6H PRN, ZOFRAN 4MG IV Q8H PRN, HUMULIN R SLIDING SCALE, PROTONIX 40MG IV DAILY, THIAMINE 200MG IV BID, VERSED DRIP, PROPOFOL DRIP, ROCURONIUM DRIP, AND THE POTASSIUM PROTOCOL. SHE RECEIVED TWO PACKS OF PLATELETS YESTERDAY. SHE ALSO RECEIVIED AN ADDITIONAL 500MG OF DIAMOX PER SCRAP PREPARATION SUPERVISOR RECOMMENDATIONS. WE WILL CONTINUE WITH CURRENT PLAN OF CARE TODAY. OTHERWISE, WE WILL FOLLOW UP WITH AM LABS, CHEST XRAY, ABG, AND CONTINUE TO MONITOR. WE WILL CONTINUE TO CONSULT WITH , SCRAP PREPARATION SUPERVISOR FROM [facility]. TIME SPENT ON CLINICAL ASSESSMENT, REVIEWING LABS AND IMAGING, DECISION MAKING, AND DOCUMENTATION GREATER THAN 75 MINUTES. - Past Medical Family Social History Past Med/Fam/Surg Hx: No changes since H&P Allergies: Allergies ibuprofen Adverse Reaction (Verified 10/06/20 20:57) abd pain - Review of Systems ROS: No change since H&P - Vital Signs and I&O's Vital Signs: Temperature 99.3 F Pulse Rate [Apical] 71 Pulse Rate [Left] 81 Pulse Rate 108 Respiratory Rate 30 Blood Pressure [Right Arm] 117/65 Blood Pressure [Left Arm] 147/90 Blood Pressure 122/63 O2 Sat by Pulse Oximetry 89 Intake and Output: Intake & Output 10/30/20 10/31/20 11/01/20 11/02/20 11:59 11:59 11:59 11:59 Intake Total 6477 / 6477 6781 / 6781 4930 / 4930 4700 / 4700 Output Total 5075 / 5075 3300 / 3300 4950 / 4950 2850 / 2850 Balance 1402 / 1402 3481 / 3481 -20 / -20 1850 / 1850 - Physical Exam Oriented: Unable to test Eyes: Normal Ear: Normal Nose: Normal Throat: Normal Respiratory: Generalized, Diminished Cardiovascular: Normal : Normal Auscultation: Bowel Sounds: Normal Palpation: Normal Tenderness: Normal Skin: Normal Musculoskeletal: Normal Psychiatric: Normal Mood Description: Anxious Affect: Anxious Speech Pattern: Artificially Ventilated - Laboratory and Diagnostics Result Diagrams: 11/02/20 04:30 11/02/20 04:30 Labs: 10/24/20 20:55 Sputum - Endotracheal Wash Sputum Culture - Final 10/24/20 20:55 Sputum - Endotracheal Wash - Final 10/07/20 11:51 Blood Blood Culture - Final 10/07/20 11:49 Blood Blood Culture - Final Laboratory WBC 4.7 X10^3/uL (3.6-10.0) 11/02/20 04:30 RBC 2.89 X10^6/uL (3.5-5.4) L 11/02/20 04:30 Hgb 9.7 g/dL (12.0-16.0) L 11/02/20 04:30 Hct 29.3 % (36.0-47.0) L 11/02/20 04:30 MCV 101.6 fL (80.0-100.0) H 11/02/20 04:30 MCH 33.7 pg (27.0-34.0) 11/02/20 04:30 MCHC 33.1 g/dL (33.0-35.0) 11/02/20 04:30 RDW 15.9 % (11.6-16.5) 11/02/20 04:30 Plt Count 52 X10^3/uL (150.0-450.0) L 11/02/20 04:30 Plt Count Comment Cancelled 11/01/20 05:10 MPV 8.5 fL (7.4-11.0) 11/02/20 04:30 Neut % (Auto) 84.9 % (42.0-75.0) H 11/02/20 04:30 Lymph % (Auto) 7.9 % (21.0-51.0) L 11/02/20 04:30 [place] % (Auto) 7.2 % (0.0-13.0) 11/02/20 04:30 Eos % (Auto) 0.0 % (0.9-2.9) L 11/02/20 04:30 Baso % (Auto) 0 % (0.2-1.0) L 11/02/20 04:30 Neut # (Auto) 4.0 x10^3/uL (2.2-4.8) 11/02/20 04:30 Lymph # (Auto) 0.4 X10^3/uL (1.3-2.9) L 11/02/20 04:30 [place] # (Auto) 0.3 x10^3/uL (0.3-0.8) 11/02/20 04:30 Eos # (Auto) 0.0 x10^3/uL (0.0-0.2) 11/02/20 04:30 Baso # (Auto) 0.0 X10^3/uL (0.0-0.1) 11/02/20 04:30 Absolute Nucleated RBC 0.3 /100WBC 11/02/20 04:30 Total Counted Cancelled 11/01/20 05:10 Neutrophils % (Manual) Cancelled 11/01/20 05:10 Band Neutrophils % Cancelled 11/01/20 05:10 Lymphocytes % (Manual) Cancelled 11/01/20 05:10 Monocytes % (Manual) Cancelled 11/01/20 05:10 Eosinophils % (Manual) Cancelled 11/01/20 05:10 Basophils % (Manual) Cancelled 11/01/20 05:10 Metamyelocytes % Cancelled 11/01/20 05:10 Myelocytes % Cancelled 11/01/20 05:10 Promyelocytes % Cancelled 11/01/20 05:10 Nucleated RBCs Cancelled 11/01/20 05:10 Atypical Lymphocytes Cancelled 11/01/20 05:10 Blast Cells Cancelled 11/01/20 05:10 Smudge Cells Cancelled 11/01/20 05:10 Toxic Granulation Cancelled 11/01/20 05:10 Dohle Bodies Cancelled 11/01/20 05:10 Gutierrez Rods Cancelled 11/01/20 05:10 Plt Clumps, EDTA Cancelled 11/01/20 05:10 Giant Platelets Cancelled 11/01/20 05:10 Plt Morphology Comment Cancelled 11/01/20 05:10 RBC Morphology Cancelled 11/01/20 05:10 Dimorphic RBCs Cancelled 11/01/20 05:10 Polychromasia Cancelled 11/01/20 05:10 Hypochromasia Cancelled 11/01/20 05:10 Poikilocytosis Cancelled 11/01/20 05:10 Basophilic Stippling Cancelled 11/01/20 05:10 Anisocytosis Cancelled 11/01/20 05:10 Microcytosis Cancelled 11/01/20 05:10 Macrocytosis Cancelled 11/01/20 05:10 Spherocytes Cancelled 11/01/20 05:10 Pappenheimer Bodies Cancelled 11/01/20 05:10 Sickle Cells Cancelled 11/01/20 05:10 Target Cells Cancelled 11/01/20 05:10 Tear Drop Cells Cancelled 11/01/20 05:10 Ovalocytes Cancelled 11/01/20 05:10 Stomatocytes Cancelled 11/01/20 05:10 Helmet Cells Cancelled 11/01/20 05:10 [place] Bodies Cancelled 11/01/20 05:10 [place] Rings Cancelled 11/01/20 05:10 [place] Cells Cancelled 11/01/20 05:10 Crenated Cell Cancelled 11/01/20 05:10 Acanthocytes (Spur) Cancelled 11/01/20 05:10 Rouleaux Cancelled 11/01/20 05:10 Schistocytes Cancelled 11/01/20 05:10 D-Dimer 0.40 ug/ml (0.0-0.57) 10/12/20 05:33 Sample Site Art-line 11/02/20 04:55 ABG pH 7.280 (7.35-7.45) L 11/02/20 04:55 ABG pCO2 90.0 mmHg (35.0-45.0) H* 11/02/20 04:55 ABG pO2 55.0 mmHg (80.0-100.0) L 11/02/20 04:55 ABG HCO3 42.3 mmol/L (22-26) H* 11/02/20 04:55 ABG O2 Saturation 84.0 % (90-100) L* 11/02/20 04:55 ABG Base Excess 11.9 mmol/L (-2.0-2.0) H 11/02/20 04:55 Loyd Test Na 11/02/20 04:55 A-a Gradient 439.0 mmHg 11/02/20 04:55 FiO2 85.0 11/02/20 04:55 Blood Gas Comments Coby well-mtf 11/02/20 04:55 Sodium 145 mmol/L (136-145) 11/02/20 04:30 Corrected Sodium 149 mmol/L (136-145) H 11/02/20 04:30 Potassium 4.0 mmol/L (3.5-5.1) 11/02/20 04:30 Chloride 106 mmol/L (98-107) 11/02/20 04:30 Carbon Dioxide 39.7 mmol/L (21-32) H 11/02/20 04:30 BUN 18 mg/dL (7-18) 11/02/20 04:30 Creatinine 0.56 mg/dL (0.55-1.02) 11/02/20 04:30 Est GFR (MDRD) Af Amer > 60 (>60) 11/02/20 04:30 Est GFR (MDRD) Non-Af > 60 (>60) 11/02/20 04:30 Glucose 278 mg/dL (65-99) H 11/02/20 04:30 POC Glucose (mg/dL) 250 mg/dL (65-99) H 11/02/20 08:40 Calcium 8.1 mg/dL (8.5-10.1) L 11/02/20 04:30 Corrected Calcium TNP 11/02/20 04:30 Phosphorus 2.2 mg/dL (2.6-4.7) L 11/01/20 05:10 Magnesium 2.5 mg/dL (1.7-2.9) 11/01/20 05:10 Ferritin 531 ng/mL (8-252) H 10/12/20 05:33 Total Bilirubin 2.30 mg/dL (0.2-1.0) H 11/02/20 04:30 AST 70 Units/L (15-37) H 11/02/20 04:30 ALT 189 Units/L (12-78) H 11/02/20 04:30 Alkaline Phosphatase 121 Units/L (46-116) H 11/02/20 04:30 Creatine Kinase 180 Units/L (26-192) 10/07/20 11:49 CK-MB (CK-2) < 1.0 ng/mL (0-4.0) 10/07/20 11:49 CK/CKMB % Calc 0.6 % (<4) 10/07/20 11:49 Troponin I < 0.02 ng/mL (0-1.5) 10/07/20 11:49 C-Reactive Protein 0.70 mg/L (0-3.0) 11/02/20 04:30 B-Natriuretic Peptide 74.0 pg/mL (0-79) 11/02/20 04:30 Total Protein 5.6 g/dL (6.4-8.2) L 11/02/20 04:30 Albumin 3.4 g/dL (3.4-5.0) 11/02/20 04:30 Globulin 2.2 g/dL (2.5-4.5) L 11/02/20 04:30 Albumin/Globulin Ratio 1.5 Ratio (1.1-2.1) 11/02/20 04:30 Prealbumin 36.9 mg/dL (18-35.7) H 11/02/20 04:30 Triglycerides 168 mg/dL (0-150) H 11/01/20 05:10 Blood Type A POSITIVE 11/01/20 11:01 - Plan (1) Pneumonia due to COVID-19 virus Status: Acute Plan: MECHANICAL VENT, IV FLUIDS, POTASSIUM AND MAGNESIUM REPLACEMENT, IV ANTIBIOTICS, IV STEROIDS, IV DIFLUCAN, NEBULIZER TREATMENTS, RESPIRATORY THERAPY, VERSED FOR SEDATION, ENTERAL NUTRITION, GLUCOSE MONITORING WITH SLIDING SCALE COVERAGE. (2) ARDS (adult respiratory distress syndrome) Status: Acute (3) Hypoxia Status: Acute (4) Thrombocytopenia Status: Acute
[2020-11-02] MEDS: NS 1000 ML 1,000 ML IV SCH (11:55)
[2020-11-02] MEDS ORDERED: LASIX IVP ONE ×2 (14:24→14:26)
[2020-11-02] MEDS: MORPHINE SULFATE INJ 2 MG INJ IVP PRN (14:38)
[2020-11-02] MEDS: SNACK - Diabetic Appropriate PO SCH (21:28)
[2020-11-03] MEDS: VERSED 100 MG in NS 100 ML IV 80 ML IV PRN ×2 (00:58→12:59)
[2020-11-03] MEDS: HumuLIN R SUBCUT PRN ×3 (01:12→16:05)
[2020-11-03] MEDS: DIPRIVAN PREMIX 1 GRAM IV 1,000 MG/100 ML VIAL IV PRN ×5 (01:34→22:05)
[2020-11-03] MEDS: LEVAQUIN PREMIX IV 500 MG 500 MG/100 ML BAG IV SCH (02:54)
[2020-11-03 05:58] LABS: ABG BASE EXCESS 15.6 mmol/L (-2.0-2.0)
[2020-11-03 06:02] LABS: ABG HCO3 42.4 mmol/L (22-26)
[2020-11-03] MEDS: ACCUNEB 1.25 MG NEBULE NEB SCH ×4 (06:02→20:42)
[2020-11-03 06:13] LABS: BASOPHILS % (AUTO) 0.1 % (0.2-1.0); HEMATOCRIT 26.2 % (36.0-47.0); HEMOGLOBIN 8.9 g/dL (12.0-16.0); LYMPHOCYTES # (AUTO) 0.4 X10^3/uL (1.3-2.9); LYMPHOCYTES % (AUTO) 11.4 % (21.0-51.0); MEAN CORPUSCULAR HEMOGLOBIN 34.2 pg (27.0-34.0); MEAN CORPUSCULAR VOLUME 100.4 fL (80.0-100.0); MEAN PLATELET VOLUME 8.9 fL (7.4-11.0); MONOCYTES # (AUTO) 0.2 x10^3/uL (0.3-0.8); MONOCYTES % (AUTO) 5.8 % (0.0-13.0); NEUTROPHILS # (AUTO) 2.6 x10^3/uL (2.2-4.8); NEUTROPHILS % (AUTO) 82.7 % (42.0-75.0); PLATELET COUNT 35 X10^3/uL (150.0-450.0); RED CELL DISTRIBUTION WIDTH 15.7 % (11.6-16.5); WHITE BLOOD COUNT 3.1 X10^3/uL (3.6-10.0)
[2020-11-03 06:16] LABS: ALANINE AMINOTRANSFERASE 139 Units/L (12-78); ALBUMIN 3.3 g/dL (3.4-5.0); ALKALINE PHOSPHATASE 107 Units/L (46-116); ASPARTATE AMINO TRANSFERASE 42 Units/L (15-37); BLOOD UREA NITROGEN 15 mg/dL (7-18); CARBON DIOXIDE 36.6 mmol/L (21-32); CHLORIDE 104 mmol/L (98-107); COR CA(FOR HYPOALB) 8.6 mg/dL (8.5-10.1); COR NA(FOR HYPERGLY) 149 mmol/L (136-145); CREATININE 0.53 mg/dL (0.55-1.02); SODIUM 144 mmol/L (136-145); TOTAL PROTEIN 5.3 g/dL (6.4-8.2); eGFR NON BLACK RACES > 60 (>60)
[2020-11-03] MEDS: SOLU-Medrol 40 MG VIAL IVP SCH ×3 (06:19→21:35)
--- NOTE | 2020-11-03 07:36 | RAD ---
HISTORYSOB, COVIDSTUDYCHEST, 1 [id number] opacity in the lower 3rd left and right lung is still present. There has been improvement since yesterday. This may be pneumonia since it had at broncho pneumonic appearance on the chest CT 10/07/2020.No pleural effusion or pneumothorax.Heart size is normal.Bones are unremarkable.The enteric tube extends into the upper abdomen. EKG leads are noted.IMPRESSION1. Improved pneumoniaElectronically signed by: Jason Barber (Nov 03, 2020 07:33:39)
[2020-11-03] MEDS: ALBUMIN HUMAN 25%- 100 ML 100 ML IV SCH (08:24)
[2020-11-03] MEDS: POTASSIUM CHLORIDE LIQ 20 MEQ UDC PO PRN (08:24)
[2020-11-03] MEDS: LACRI-LUBE S.O.P. AFFEYE SCH ×2 (08:25→20:21)
[2020-11-03] MEDS: BROVANA IN SCH ×2 (08:25→20:42)
[2020-11-03] MEDS: NYSTATIN CREAM TOP SCH ×2 (08:25→20:21)
[2020-11-03] MEDS: THIAMINE HCL INJ IVP SCH ×2 (08:25→20:21)
[2020-11-03] MEDS: PROTONIX INJ 40 MG VIAL IVP SCH (08:25)
[2020-11-03] MEDS: PULMICORT NEB TX 0.5 MG NEB SCH ×2 (08:25→20:42)
[2020-11-03] MEDS: VITAMIN D3 125 mcg (5,000 UNITS) NG SCH (08:25)
[2020-11-03] MEDS: DIFLUCAN 200 MG IV PREMIX* 200 MG/100 ML BAG IV SCH (09:17)
[2020-11-03] MEDS: NS 1000 ML 1,000 ML IV SCH ×3 (13:44→21:35)
--- NOTE | 2020-11-03 14:28 | PCM.PROG ---
Progress Note - Progress Note for Day of Date of Exam: 11/03/20 - Subjective Subjective: MS. RICHARDS WAS ADMITTED FOR TREATMENT OF COVID PNEUMONIA AND HYPOXIA. SHE RECEIVED [facility]-COV INFUSION IN [place], [place] ON 10/05/20. SHE REMAINS IN THE INTENSIVE CARE UNIT. SHE WAS INTUBATED ON 10/24 DUE TO RESPIRATORY FAILURE. HER VENT SETTINGS THIS MORNING ARE: A/C, RATE 30, TIDAL VOLUME 315, PEEP 15, FI02 100. FI02 WAS INCREASED YESTERDAY DUE TO SATURATIONS DROPPING INTO THE LOWER 80s. SATURATIONS HAVE BEEN 90-95% THIS MORNING AND THROUGHOUT THE NIGHT WHILE ON THE VENT. ON EXAMINATION, HEART IS REGULAR IN RATE AND RHYTHM. BILATERAL LUNGS ARE NOTED WITH DIMINISHED LUNG SOUNDS THROUGHOUT. ABDOMEN IS ROUND, SOFT, AND NON-TENDER WITH NORMAL BOWEL SOUNDS NOTED IN ALL QUADRANTS. HIS VITALS THIS MORNING ARE: 98.3-99-30-95%-129/67. LABS WERE OBTAINED. ABNORMAL LAB VALUES INCLUDE THE FOLLOWING: WBC 3.1, RBC 2.60, HGB 8.9, HCT 26.2, PLT COUNT 35, POTASSIUM 2.9, CARBON DIOXIDE 36.6, CREATININE 0.53, GLUCOSE 295, CALCIUM 8.0, TOTAL PROTEIN 2.10, AST 42, ALT 139, TOTAL PROTEIN 5.3, ALBUMIN 3.3, GLOBULIN 2.0. ABG REVEALED: PH 7.450, PC02 61, P02 77, HC03 42.4, 02 SAT 96, BASE EXCESS 15.6, A-A GRADIENT 560, FI02 100. CHEST XRAY WAS OBTAINED AND REVEALED: 1. Improved pneumonia. SHE IS CURRENTLY RECEIVING NS AT 20 ML/HR, LEVAQUIN 500MG IV DAILY, ALBUMIN 25% IV DAILY, DIFLUCAN 200MG IV DAILY, ALBUTEROL NEBS TID, PULMICORT NEBS BID, BROVANA 15MCG BID, TUSSIONEX 5ML GT Q12H PRN, NORCO 1 TAB NG Q8H PRN, SOLU-MEDROL 40MG IV Q8H, MORPHINE 1MG Q6H PRN, ZOFRAN 4MG IV Q8H PRN, HUMULIN R SLIDING SCALE, PROTONIX 40MG IV DAILY, THIAMINE 200MG IV BID, VERSED DRIP, PROPOFOL DRIP, ROCURONIUM DRIP, AND THE POTASSIUM PROTOCOL. WE WILL CONTINUE WITH CURRENT PLAN OF CARE TODAY. OTHERWISE, WE WILL FOLLOW UP WITH AM LABS, CHEST XRAY, ABG, AND CONTINUE TO MONITOR. WE WILL CONTINUE TO CONSULT WITH , TRAILER BODY ASSEMBLER FROM [facility]. TIME SPENT ON CLINICAL ASSESSMENT, REVIEWING LABS AND IMAGING, DECISION MAKING, AND DOCUMENTATION GREATER THAN 75 MINUTES. - Past Medical Family Social History Past Med/Fam/Surg Hx: No changes since H&P Allergies: Allergies ibuprofen Adverse Reaction (Verified 10/06/20 20:57) abd pain - Review of Systems ROS: No change since H&P - Vital Signs and I&O's Vital Signs: Temperature 98.3 F Pulse Rate [Apical] 71 Pulse Rate [Left] 81 Pulse Rate 97 Respiratory Rate 30 Blood Pressure [Right Arm] 117/65 Blood Pressure [Left Arm] 147/90 Blood Pressure 119/66 O2 Sat by Pulse Oximetry 94 Intake and Output: Intake & Output 11/01/20 11/02/20 11/03/20 11/04/20 11:59 11:59 11:59 11:59 Intake Total 4930 / 4930 4700 / 4700 4095 / 4095 100 / 100 Output Total 4950 / 4950 2850 / 2850 6300 / 6300 Balance -20 / -20 1850 / 1850 -2205 / -2205 100 / 100 - Physical Exam Oriented: Unable to test Eyes: Normal Ear: Normal Nose: Normal Throat: Normal Respiratory: Generalized, Diminished Cardiovascular: Normal : Normal Auscultation: Bowel Sounds: Normal Tenderness: Normal Skin: Normal Musculoskeletal: Normal Psychiatric: Normal Mood Description: Anxious Affect: Anxious Speech Pattern: Artificially Ventilated - Laboratory and Diagnostics Result Diagrams: 11/03/20 04:28 11/03/20 12:00 Labs: 10/24/20 20:55 Sputum - Endotracheal Wash Sputum Culture - Final 10/24/20 20:55 Sputum - Endotracheal Wash - Final 10/07/20 11:51 Blood Blood Culture - Final 10/07/20 11:49 Blood Blood Culture - Final Laboratory WBC 3.1 X10^3/uL (3.6-10.0) L 11/03/20 04:28 RBC 2.60 X10^6/uL (3.5-5.4) L 11/03/20 04:28 Hgb 8.9 g/dL (12.0-16.0) L 11/03/20 04:28 Hct 26.2 % (36.0-47.0) L 11/03/20 04:28 MCV 100.4 fL (80.0-100.0) H 11/03/20 04:28 MCH 34.2 pg (27.0-34.0) H 11/03/20 04:28 MCHC 34.0 g/dL (33.0-35.0) 11/03/20 04:28 RDW 15.7 % (11.6-16.5) 11/03/20 04:28 Plt Count 35 X10^3/uL (150.0-450.0) L 11/03/20 04:28 Plt Count Comment Cancelled 11/01/20 05:10 MPV 8.9 fL (7.4-11.0) 11/03/20 04:28 Neut % (Auto) 82.7 % (42.0-75.0) H 11/03/20 04:28 Lymph % (Auto) 11.4 % (21.0-51.0) L 11/03/20 04:28 [place] % (Auto) 5.8 % (0.0-13.0) 11/03/20 04:28 Eos % (Auto) 0.0 % (0.9-2.9) L 11/03/20 04:28 Baso % (Auto) 0.1 % (0.2-1.0) L 11/03/20 04:28 Neut # (Auto) 2.6 x10^3/uL (2.2-4.8) 11/03/20 04:28 Lymph # (Auto) 0.4 X10^3/uL (1.3-2.9) L 11/03/20 04:28 [place] # (Auto) 0.2 x10^3/uL (0.3-0.8) L 11/03/20 04:28 Eos # (Auto) 0.0 x10^3/uL (0.0-0.2) 11/03/20 04:28 Baso # (Auto) 0.0 X10^3/uL (0.0-0.1) 11/03/20 04:28 Absolute Nucleated RBC 0.6 /100WBC 11/03/20 04:28 Total Counted Cancelled 11/01/20 05:10 Neutrophils % (Manual) Cancelled 11/01/20 05:10 Band Neutrophils % Cancelled 11/01/20 05:10 Lymphocytes % (Manual) Cancelled 11/01/20 05:10 Monocytes % (Manual) Cancelled 11/01/20 05:10 Eosinophils % (Manual) Cancelled 11/01/20 05:10 Basophils % (Manual) Cancelled 11/01/20 05:10 Metamyelocytes % Cancelled 11/01/20 05:10 Myelocytes % Cancelled 11/01/20 05:10 Promyelocytes % Cancelled 11/01/20 05:10 Nucleated RBCs Cancelled 11/01/20 05:10 Atypical Lymphocytes Cancelled 11/01/20 05:10 Blast Cells Cancelled 11/01/20 05:10 Smudge Cells Cancelled 11/01/20 05:10 Toxic Granulation Cancelled 11/01/20 05:10 Dohle Bodies Cancelled 11/01/20 05:10 Gutierrez Rods Cancelled 11/01/20 05:10 Plt Clumps, EDTA Cancelled 11/01/20 05:10 Giant Platelets Cancelled 11/01/20 05:10 Plt Morphology Comment Cancelled 11/01/20 05:10 RBC Morphology Cancelled 11/01/20 05:10 Dimorphic RBCs Cancelled 11/01/20 05:10 Polychromasia Cancelled 11/01/20 05:10 Hypochromasia Cancelled 11/01/20 05:10 Poikilocytosis Cancelled 11/01/20 05:10 Basophilic Stippling Cancelled 11/01/20 05:10 Anisocytosis Cancelled 11/01/20 05:10 Microcytosis Cancelled 11/01/20 05:10 Macrocytosis Cancelled 11/01/20 05:10 Spherocytes Cancelled 11/01/20 05:10 Pappenheimer Bodies Cancelled 11/01/20 05:10 Sickle Cells Cancelled 11/01/20 05:10 Target Cells Cancelled 11/01/20 05:10 Tear Drop Cells Cancelled 11/01/20 05:10 Ovalocytes Cancelled 11/01/20 05:10 Stomatocytes Cancelled 11/01/20 05:10 Helmet Cells Cancelled 11/01/20 05:10 [place] Bodies Cancelled 11/01/20 05:10 [place] Rings Cancelled 11/01/20 05:10 [place] Cells Cancelled 11/01/20 05:10 Crenated Cell Cancelled 11/01/20 05:10 Acanthocytes (Spur) Cancelled 11/01/20 05:10 Rouleaux Cancelled 11/01/20 05:10 Schistocytes Cancelled 11/01/20 05:10 D-Dimer 0.40 ug/ml (0.0-0.57) 10/12/20 05:33 Sample Site Art-line 11/03/20 05:53 ABG pH 7.450 (7.35-7.45) 11/03/20 05:53 ABG pCO2 61.0 mmHg (35.0-45.0) H* 11/03/20 05:53 ABG pO2 77.0 mmHg (80.0-100.0) L 11/03/20 05:53 ABG HCO3 42.4 mmol/L (22-26) H* 11/03/20 05:53 ABG O2 Saturation 96.0 % (90-100) 11/03/20 05:53 ABG Base Excess 15.6 mmol/L (-2.0-2.0) H 11/03/20 05:53 Loyd Test Na 11/03/20 05:53 A-a Gradient 560.0 mmHg 11/03/20 05:53 FiO2 100.0 11/03/20 05:53 Blood Gas Comments Coby well-mtf 11/03/20 05:53 Sodium 144 mmol/L (136-145) 11/03/20 04:28 Corrected Sodium 149 mmol/L (136-145) H 11/03/20 04:28 Potassium 3.9 mmol/L (3.5-5.1) 11/03/20 12:00 Chloride 104 mmol/L (98-107) 11/03/20 04:28 Carbon Dioxide 36.6 mmol/L (21-32) H 11/03/20 04:28 BUN 15 mg/dL (7-18) 11/03/20 04:28 Creatinine 0.53 mg/dL (0.55-1.02) L 11/03/20 04:28 Est GFR (MDRD) Af Amer > 60 (>60) 11/03/20 04:28 Est GFR (MDRD) Non-Af > 60 (>60) 11/03/20 04:28 Glucose 295 mg/dL (65-99) H 11/03/20 04:28 POC Glucose (mg/dL) 239 mg/dL (65-99) H 11/03/20 07:59 Calcium 8.0 mg/dL (8.5-10.1) L 11/03/20 04:28 Corrected Calcium 8.6 mg/dL (8.5-10.1) 11/03/20 04:28 Phosphorus 2.2 mg/dL (2.6-4.7) L 11/01/20 05:10 Magnesium 2.5 mg/dL (1.7-2.9) 11/03/20 04:28 Ferritin 531 ng/mL (8-252) H 10/12/20 05:33 Total Bilirubin 2.10 mg/dL (0.2-1.0) H 11/03/20 04:28 AST 42 Units/L (15-37) H 11/03/20 04:28 ALT 139 Units/L (12-78) H 11/03/20 04:28 Alkaline Phosphatase 107 Units/L (46-116) 11/03/20 04:28 Creatine Kinase 180 Units/L (26-192) 10/07/20 11:49 CK-MB (CK-2) < 1.0 ng/mL (0-4.0) 10/07/20 11:49 CK/CKMB % Calc 0.6 % (<4) 10/07/20 11:49 Troponin I < 0.02 ng/mL (0-1.5) 10/07/20 11:49 C-Reactive Protein 1.00 mg/L (0-3.0) 11/03/20 04:28 B-Natriuretic Peptide 53.6 pg/mL (0-79) 11/03/20 04:28 Total Protein 5.3 g/dL (6.4-8.2) L 11/03/20 04:28 Albumin 3.3 g/dL (3.4-5.0) L 11/03/20 04:28 Globulin 2.0 g/dL (2.5-4.5) L 11/03/20 04:28 Albumin/Globulin Ratio 1.7 Ratio (1.1-2.1) 11/03/20 04:28 Prealbumin 36.9 mg/dL (18-35.7) H 11/02/20 04:30 Triglycerides 168 mg/dL (0-150) H 11/01/20 05:10 Blood Type A POSITIVE 11/01/20 11:01 - Plan (1) Pneumonia due to COVID-19 virus Status: Acute Plan: MECHANICAL VENT, IV FLUIDS, POTASSIUM AND MAGNESIUM REPLACEMENT, IV ANTIBIOTICS, IV STEROIDS, IV DIFLUCAN, NEBULIZER TREATMENTS, RESPIRATORY THERAPY, VERSED FOR SEDATION, ENTERAL NUTRITION, GLUCOSE MONITORING WITH SLIDING SCALE COVERAGE. (2) ARDS (adult respiratory distress syndrome) Status: Acute (3) Hypoxia Status: Acute (4) Thrombocytopenia Status: Acute Plan: TRANSFUSE PLATELETS
[2020-11-03] MEDS: ZEMURON 100 MG VIAL 500 MG in NS 500 ML IV 450 ML IV PRN (15:35)
[2020-11-03] MEDS ORDERED: DIAMOX PO ONE (15:38)
[2020-11-03] MEDS: DIAMOX PO ONE ×2 (15:39→16:04)
[2020-11-03] MEDS: SNACK - Diabetic Appropriate PO SCH (20:21)
[2020-11-04] MEDS: HumuLIN R SUBCUT PRN ×3 (00:16→15:26)
[2020-11-04] MEDS: VERSED 100 MG in NS 100 ML IV 80 ML IV PRN ×2 (01:37→23:07)
[2020-11-04] MEDS: LEVAQUIN PREMIX IV 500 MG 500 MG/100 ML BAG IV SCH (02:35)
[2020-11-04] MEDS: DIPRIVAN PREMIX 1 GRAM IV 1,000 MG/100 ML VIAL IV PRN ×6 (02:35→23:41)
[2020-11-04] MEDS: NS 1000 ML 1,000 ML IV SCH ×3 (04:21→17:14)
[2020-11-04] MEDS: ACCUNEB 1.25 MG NEBULE NEB SCH ×4 (05:00→20:00)
[2020-11-04 05:06] LABS: ABG BASE EXCESS 10.1 mmol/L (-2.0-2.0)
[2020-11-04 05:17] LABS: BASOPHILS % (AUTO) 0.2 % (0.2-1.0); HEMATOCRIT 26.6 % (36.0-47.0); LYMPHOCYTES # (AUTO) 0.3 X10^3/uL (1.3-2.9); LYMPHOCYTES % (AUTO) 8.4 % (21.0-51.0); MEAN CORPUSCULAR HEMOGLOBIN 33.7 pg (27.0-34.0); MEAN CORPUSCULAR HGB CONC 33.7 g/dL (33.0-35.0); MEAN CORPUSCULAR VOLUME 100.3 fL (80.0-100.0); MEAN PLATELET VOLUME 9.3 fL (7.4-11.0); MONOCYTES # (AUTO) 0.2 x10^3/uL (0.3-0.8); MONOCYTES % (AUTO) 4.7 % (0.0-13.0); NEUTROPHILS # (AUTO) 2.9 x10^3/uL (2.2-4.8); NEUTROPHILS % (AUTO) 86.7 % (42.0-75.0); PLATELET COUNT 33 X10^3/uL (150.0-450.0); RED BLOOD COUNT 2.65 X10^6/uL (3.5-5.4); RED CELL DISTRIBUTION WIDTH 15.8 % (11.6-16.5); WHITE BLOOD COUNT 3.3 X10^3/uL (3.6-10.0)
[2020-11-04 05:26] LABS: ALANINE AMINOTRANSFERASE 111 Units/L (12-78); ALBUMIN 3.3 g/dL (3.4-5.0); ALKALINE PHOSPHATASE 111 Units/L (46-116); ASPARTATE AMINO TRANSFERASE 29 Units/L (15-37); BLOOD UREA NITROGEN 14 mg/dL (7-18); CALCIUM 8.2 mg/dL (8.5-10.1); CHLORIDE 106 mmol/L (98-107); COR CA(FOR HYPOALB) 8.8 mg/dL (8.5-10.1); COR NA(FOR HYPERGLY) 149 mmol/L (136-145); CREATININE 0.53 mg/dL (0.55-1.02); SODIUM 144 mmol/L (136-145); TOTAL PROTEIN 5.4 g/dL (6.4-8.2); eGFR NON BLACK RACES > 60 (>60)
[2020-11-04] MEDS: SOLU-Medrol 40 MG VIAL IVP SCH ×3 (05:29→21:00)
--- NOTE | 2020-11-04 06:24 | RAD ---
HISTORYSOB, COVIDSTUDYCHEST, 1 [id number] opacity in the left and right lung consistent with bronchopneumonia, better appreciated on the CTA chest 10/07/2020. There may be a slight progression from yesterday.No pleural effusion or pneumothorax.Heart size is normal. Vascular calcifications are present compatible with atherosclerosis.Bones are unremarkable.The endotracheal tube is anatomic in position in the trachea. The enteric tube extends into the upper abdomen. EKG leads are noted.IMPRESSION1. Progressed bronchopneumoniaElectronically signed by: Jason Barber (Nov 04, 2020 06:23:15)
[2020-11-04] MEDS: ALBUMIN HUMAN 25%- 100 ML 100 ML IV SCH (08:00)
[2020-11-04] MEDS: ZEMURON 100 MG VIAL 500 MG in NS 500 ML IV 450 ML IV PRN ×2 (08:33→23:08)
[2020-11-04] MEDS: POTASSIUM CHLORIDE LIQ 20 MEQ UDC PO PRN (08:33)
[2020-11-04] MEDS: LACRI-LUBE S.O.P. AFFEYE SCH ×2 (08:34→20:59)
[2020-11-04] MEDS: NYSTATIN CREAM TOP SCH ×2 (08:34→20:59)
[2020-11-04] MEDS: THIAMINE HCL INJ IVP SCH ×2 (08:35→21:00)
[2020-11-04] MEDS: VITAMIN D3 125 mcg (5,000 UNITS) NG SCH (08:35)
[2020-11-04] MEDS: PROTONIX INJ 40 MG VIAL IVP SCH (08:35)
[2020-11-04] MEDS: PULMICORT NEB TX 0.5 MG NEB SCH ×2 (09:05→20:00)
[2020-11-04] MEDS: BROVANA IN SCH ×2 (09:05→20:00)
[2020-11-04] MEDS: DIFLUCAN 200 MG IV PREMIX* 200 MG/100 ML BAG IV SCH (09:14)
[2020-11-04] MEDS ORDERED: DIAMOX PO ONE (09:44)
--- NOTE | 2020-11-04 16:11 | PCM.PROG ---
Progress Note - Progress Note for Day of Date of Exam: 11/04/20 - Subjective Subjective: MS. RICHARDS WAS ADMITTED FOR TREATMENT OF COVID PNEUMONIA AND HYPOXIA. SHE RECEIVED [facility]-COV INFUSION IN [place], [place] ON 10/05/20. SHE REMAINS IN THE INTENSIVE CARE UNIT. SHE WAS INTUBATED ON 10/24 DUE TO RESPIRATORY FAILURE. HER VENT SETTINGS THIS MORNING ARE: A/C, RATE 30, TIDAL VOLUME 400, PEEP 15, FI02 100. SATURATIONS HAVE BEEN 92-95% THIS MORNING AND THROUGHOUT THE NIGHT WHILE ON THE VENT. ON EXAMINATION, HEART IS REGULAR IN RATE AND RHYTHM. BILATERAL LUNGS ARE NOTED WITH DIMINISHED LUNG SOUNDS THROUGHOUT. ABDOMEN IS ROUND, SOFT, AND NON-TENDER WITH NORMAL BOWEL SOUNDS NOTED IN ALL QUADRANTS. HIS VITALS THIS MORNING ARE: 99.3-91-30-94%-110/60. LABS WERE OBTAINED. ABNORMAL LAB VALUES INCLUDE THE FOLLOWING: WBC 3.3, RBC 2.65, HGB 9.0, HCT 26.6, PLT COUNT 33, CARBON DIOXIDE 33.0, CREATININE 0.53, GLUCOSE 327, CALCIUM 8.2, TOTAL BILI 1.60, ALT 111, TOTAL PROTEIN 5.4, ALBUMIN 3.3. ABG REVEALED: PH 7.440, PC02 53, P02 89, HC03 36, 02 SAT 97, A-A GRADIENT 558, FI02 100. CHEST XRAY WAS OBTAINED AND REVEALED: PROGRESSED BRONCHOPNEUMONIA. SHE HAS HAD A NEGATIVE FLUID BALANCE OVER THE PAST 24 HOURS, WHICH IS WHAT WE WANT TO SEE. SHE IS CURRENTLY RECEIVING NS AT 20 ML/HR, LEVAQUIN 500MG IV DAILY, ALBUMIN 25% IV DAILY, DIFLUCAN 200MG IV DAILY, ALBUTEROL NEBS TID, PULMICORT NEBS BID, BROVANA 15MCG BID, TUSSIONEX 5ML GT Q12H PRN, NORCO 1 TAB NG Q8H PRN, SOLU-MEDROL 40MG IV Q8H, MORPHINE 1MG Q6H PRN, ZOFRAN 4MG IV Q8H PRN, HUMULIN R SLIDING SCALE, PROTONIX 40MG IV DAILY, THIAMINE 200MG IV BID, VERSED DRIP, PROPOFOL DRIP, ROCURONIUM DRIP, AND THE POTASSIUM PROTOCOL. SHE CONTINUES TO RECEIVE ENTERAL FEEDINGS. WE WILL CONTINUE WITH CURRENT PLAN OF CARE TODAY AND ADMINISTER A DOSE OF DIAMOX 250MG X 1. OTHERWISE, WE WILL FOLLOW UP WITH AM LABS, CHEST XRAY, ABG, AND CONTINUE TO MONITOR. TIME SPENT ON CLINICAL ASSESSMENT, REVIEWING LABS AND IMAGING, DECISION MAKING, AND DOCUMENTATION GREATER THAN 75 MINUTES. - Past Medical Family Social History Past Med/Fam/Surg Hx: No changes since H&P Allergies: Allergies ibuprofen Adverse Reaction (Verified 10/06/20 20:57) abd pain - Review of Systems ROS: No change since H&P - Vital Signs and I&O's Vital Signs: Temperature 98.8 F Pulse Rate [Apical] 71 Pulse Rate [Left] 81 Pulse Rate 101 Respiratory Rate 30 Blood Pressure [Right Arm] 117/65 Blood Pressure [Left Arm] 147/90 Blood Pressure 132/66 O2 Sat by Pulse Oximetry 92 Intake and Output: Intake & Output 11/02/20 11/03/20 11/04/20 11/05/20 11:59 11:59 11:59 11:59 Intake Total 4700 / 4700 4095 / 4095 4353 / 4353 1224 / 1224 Output Total 2850 / 2850 6300 / 6300 4300 / 4300 2400 / 2400 Balance 1850 / 1850 -2205 / -2205 53 / 53 -1176 / -1176 - Physical Exam Oriented: Unable to test Eyes: Normal Ear: Normal Nose: Normal Throat: Normal Respiratory: Generalized, Diminished Cardiovascular: Normal : Normal Auscultation: Bowel Sounds: Normal Tenderness: Normal Skin: Normal Musculoskeletal: Normal Psychiatric: Normal Mood Description: Anxious Affect: Anxious Speech Pattern: Artificially Ventilated - Laboratory and Diagnostics Result Diagrams: 11/04/20 04:47 11/04/20 04:47 Labs: 10/24/20 20:55 Sputum - Endotracheal Wash Sputum Culture - Final 10/24/20 20:55 Sputum - Endotracheal Wash - Final 10/07/20 11:51 Blood Blood Culture - Final 10/07/20 11:49 Blood Blood Culture - Final Laboratory WBC 3.3 X10^3/uL (3.6-10.0) L 11/04/20 04:47 RBC 2.65 X10^6/uL (3.5-5.4) L 11/04/20 04:47 Hgb 9.0 g/dL (12.0-16.0) L 11/04/20 04:47 Hct 26.6 % (36.0-47.0) L 11/04/20 04:47 MCV 100.3 fL (80.0-100.0) H 11/04/20 04:47 MCH 33.7 pg (27.0-34.0) 11/04/20 04:47 MCHC 33.7 g/dL (33.0-35.0) 11/04/20 04:47 RDW 15.8 % (11.6-16.5) 11/04/20 04:47 Plt Count 33 X10^3/uL (150.0-450.0) L 11/04/20 04:47 Plt Count Comment Cancelled 11/01/20 05:10 MPV 9.3 fL (7.4-11.0) 11/04/20 04:47 Neut % (Auto) 86.7 % (42.0-75.0) H 11/04/20 04:47 Lymph % (Auto) 8.4 % (21.0-51.0) L 11/04/20 04:47 [place] % (Auto) 4.7 % (0.0-13.0) 11/04/20 04:47 Eos % (Auto) 0.0 % (0.9-2.9) L 11/04/20 04:47 Baso % (Auto) 0.2 % (0.2-1.0) 11/04/20 04:47 Neut # (Auto) 2.9 x10^3/uL (2.2-4.8) 11/04/20 04:47 Lymph # (Auto) 0.3 X10^3/uL (1.3-2.9) L 11/04/20 04:47 [place] # (Auto) 0.2 x10^3/uL (0.3-0.8) L 11/04/20 04:47 Eos # (Auto) 0.0 x10^3/uL (0.0-0.2) 11/04/20 04:47 Baso # (Auto) 0.0 X10^3/uL (0.0-0.1) 11/04/20 04:47 Absolute Nucleated RBC 0.4 /100WBC 11/04/20 04:47 Total Counted Cancelled 11/01/20 05:10 Neutrophils % (Manual) Cancelled 11/01/20 05:10 Band Neutrophils % Cancelled 11/01/20 05:10 Lymphocytes % (Manual) Cancelled 11/01/20 05:10 Monocytes % (Manual) Cancelled 11/01/20 05:10 Eosinophils % (Manual) Cancelled 11/01/20 05:10 Basophils % (Manual) Cancelled 11/01/20 05:10 Metamyelocytes % Cancelled 11/01/20 05:10 Myelocytes % Cancelled 11/01/20 05:10 Promyelocytes % Cancelled 11/01/20 05:10 Nucleated RBCs Cancelled 11/01/20 05:10 Atypical Lymphocytes Cancelled 11/01/20 05:10 Blast Cells Cancelled 11/01/20 05:10 Smudge Cells Cancelled 11/01/20 05:10 Toxic Granulation Cancelled 11/01/20 05:10 Dohle Bodies Cancelled 11/01/20 05:10 Gutierrez Rods Cancelled 11/01/20 05:10 Plt Clumps, EDTA Cancelled 11/01/20 05:10 Giant Platelets Cancelled 11/01/20 05:10 Plt Morphology Comment Cancelled 11/01/20 05:10 RBC Morphology Cancelled 11/01/20 05:10 Dimorphic RBCs Cancelled 11/01/20 05:10 Polychromasia Cancelled 11/01/20 05:10 Hypochromasia Cancelled 11/01/20 05:10 Poikilocytosis Cancelled 11/01/20 05:10 Basophilic Stippling Cancelled 11/01/20 05:10 Anisocytosis Cancelled 11/01/20 05:10 Microcytosis Cancelled 11/01/20 05:10 Macrocytosis Cancelled 11/01/20 05:10 Spherocytes Cancelled 11/01/20 05:10 Pappenheimer Bodies Cancelled 11/01/20 05:10 Sickle Cells Cancelled 11/01/20 05:10 Target Cells Cancelled 11/01/20 05:10 Tear Drop Cells Cancelled 11/01/20 05:10 Ovalocytes Cancelled 11/01/20 05:10 Stomatocytes Cancelled 11/01/20 05:10 Helmet Cells Cancelled 11/01/20 05:10 Florian-[place] Bodies Cancelled 11/01/20 05:10 [place] Rings Cancelled 11/01/20 05:10 [place] Cells Cancelled 11/01/20 05:10 Crenated Cell Cancelled 11/01/20 05:10 Acanthocytes (Spur) Cancelled 11/01/20 05:10 Rouleaux Cancelled 11/01/20 05:10 Schistocytes Cancelled 11/01/20 05:10 D-Dimer 0.40 ug/ml (0.0-0.57) 10/12/20 05:33 Sample Site Art-line 11/04/20 05:00 ABG pH 7.440 (7.35-7.45) 11/04/20 05:00 ABG pCO2 53.0 mmHg (35.0-45.0) H* 11/04/20 05:00 ABG pO2 89.0 mmHg (80.0-100.0) 11/04/20 05:00 ABG HCO3 36.0 mmol/L (22-26) H* 11/04/20 05:00 ABG O2 Saturation 97.0 % (90-100) 11/04/20 05:00 ABG Base Excess 10.1 mmol/L (-2.0-2.0) H 11/04/20 05:00 Loyd Test Na 11/04/20 05:00 A-a Gradient 558.0 mmHg 11/04/20 05:00 FiO2 100.0 11/04/20 05:00 Blood Gas Comments Coby well-mtf 11/04/20 05:00 Sodium 144 mmol/L (136-145) 11/04/20 04:47 Corrected Sodium 149 mmol/L (136-145) H 11/04/20 04:47 Potassium 3.5 mmol/L (3.5-5.1) 11/04/20 04:47 Chloride 106 mmol/L (98-107) 11/04/20 04:47 Carbon Dioxide 33.0 mmol/L (21-32) H 11/04/20 04:47 BUN 14 mg/dL (7-18) 11/04/20 04:47 Creatinine 0.53 mg/dL (0.55-1.02) L 11/04/20 04:47 Est GFR (MDRD) Af Amer > 60 (>60) 11/04/20 04:47 Est GFR (MDRD) Non-Af > 60 (>60) 11/04/20 04:47 Glucose 327 mg/dL (65-99) H 11/04/20 04:47 POC Glucose (mg/dL) 269 mg/dL (65-99) H 11/04/20 15:12 Calcium 8.2 mg/dL (8.5-10.1) L 11/04/20 04:47 Corrected Calcium 8.8 mg/dL (8.5-10.1) 11/04/20 04:47 Phosphorus 2.2 mg/dL (2.6-4.7) L 11/01/20 05:10 Magnesium 2.5 mg/dL (1.7-2.9) 11/03/20 04:28 Ferritin 531 ng/mL (8-252) H 10/12/20 05:33 Total Bilirubin 1.60 mg/dL (0.2-1.0) H 11/04/20 04:47 AST 29 Units/L (15-37) 11/04/20 04:47 ALT 111 Units/L (12-78) H 11/04/20 04:47 Alkaline Phosphatase 111 Units/L (46-116) 11/04/20 04:47 Creatine Kinase 180 Units/L (26-192) 10/07/20 11:49 CK-MB (CK-2) < 1.0 ng/mL (0-4.0) 10/07/20 11:49 CK/CKMB % Calc 0.6 % (<4) 10/07/20 11:49 Troponin I < 0.02 ng/mL (0-1.5) 10/07/20 11:49 C-Reactive Protein 2.30 mg/L (0-3.0) 11/04/20 04:47 B-Natriuretic Peptide 29.6 pg/mL (0-79) 11/04/20 04:47 Total Protein 5.4 g/dL (6.4-8.2) L 11/04/20 04:47 Albumin 3.3 g/dL (3.4-5.0) L 11/04/20 04:47 Globulin 2.1 g/dL (2.5-4.5) L 11/04/20 04:47 Albumin/Globulin Ratio 1.6 Ratio (1.1-2.1) 11/04/20 04:47 Prealbumin 36.9 mg/dL (18-35.7) H 11/02/20 04:30 Triglycerides 168 mg/dL (0-150) H 11/01/20 05:10 Blood Type A POSITIVE 11/01/20 11:01 - Plan (1) Pneumonia due to COVID-19 virus Status: Acute Plan: MECHANICAL VENT, IV FLUIDS, POTASSIUM AND MAGNESIUM REPLACEMENT, IV ANTIBIOTICS, IV STEROIDS, IV DIFLUCAN, NEBULIZER TREATMENTS, RESPIRATORY THERAPY, VERSED FOR SEDATION, ENTERAL NUTRITION, GLUCOSE MONITORING WITH SLIDING SCALE COVERAGE. (2) ARDS (adult respiratory distress syndrome) Status: Acute (3) Hypoxia Status: Acute (4) Thrombocytopenia Status: Acute Plan: TRANSFUSE PLATELETS
[2020-11-04] MEDS: SNACK - Diabetic Appropriate PO SCH (20:59)
[2020-11-05] MEDS: HumuLIN R SUBCUT PRN ×2 (00:44→17:03)
[2020-11-05] MEDS: LEVAQUIN PREMIX IV 500 MG 500 MG/100 ML BAG IV SCH (03:00)
[2020-11-05] MEDS: DIPRIVAN PREMIX 1 GRAM IV 1,000 MG/100 ML VIAL IV PRN ×6 (03:32→23:16)
[2020-11-05 04:26] LABS: ABG BASE EXCESS 9.7 mmol/L (-2.0-2.0)
[2020-11-05 04:27] LABS: ABG HCO3 35.8 mmol/L (22-26)
[2020-11-05] MEDS: ACCUNEB 1.25 MG NEBULE NEB SCH ×3 (05:00→20:05)
[2020-11-05 05:31] LABS: BASOPHILS % (AUTO) 0.2 % (0.2-1.0); EOSINOPHILS % (AUTO) 0.1 % (0.9-2.9); HEMATOCRIT 23.8 % (36.0-47.0); LYMPHOCYTES # (AUTO) 0.3 X10^3/uL (1.3-2.9); LYMPHOCYTES % (AUTO) 11.7 % (21.0-51.0); MEAN CORPUSCULAR HEMOGLOBIN 33.9 pg (27.0-34.0); MEAN CORPUSCULAR HGB CONC 33.8 g/dL (33.0-35.0); MEAN CORPUSCULAR VOLUME 100.2 fL (80.0-100.0); MEAN PLATELET VOLUME 8.6 fL (7.4-11.0); MONOCYTES # (AUTO) 0.1 x10^3/uL (0.3-0.8); MONOCYTES % (AUTO) 4.7 % (0.0-13.0); NEUTROPHILS % (AUTO) 83.3 % (42.0-75.0); PLATELET COUNT 29 X10^3/uL (150.0-450.0); RED BLOOD COUNT 2.37 X10^6/uL (3.5-5.4); RED CELL DISTRIBUTION WIDTH 16.2 % (11.6-16.5); WHITE BLOOD COUNT 2.4 X10^3/uL (3.6-10.0)
[2020-11-05 05:49] LABS: ALANINE AMINOTRANSFERASE 88 Units/L (12-78); ALBUMIN 3.2 g/dL (3.4-5.0); ALKALINE PHOSPHATASE 104 Units/L (46-116); ASPARTATE AMINO TRANSFERASE 25 Units/L (15-37); BLOOD UREA NITROGEN 13 mg/dL (7-18); CARBON DIOXIDE 35.4 mmol/L (21-32); CHLORIDE 107 mmol/L (98-107); COR CA(FOR HYPOALB) 8.6 mg/dL (8.5-10.1); COR NA(FOR HYPERGLY) 151 mmol/L (136-145); CREATININE 0.46 mg/dL (0.55-1.02); SODIUM 146 mmol/L (136-145); TOTAL PROTEIN 5.1 g/dL (6.4-8.2); eGFR NON BLACK RACES > 60 (>60)
[2020-11-05] MEDS: SOLU-Medrol 40 MG VIAL IVP SCH ×3 (05:57→21:21)
--- NOTE | 2020-11-05 06:09 | RAD ---
HISTORYSOBSTUDYCHEST, 1 [id number]/26/2021.TECHNIQUEAP view of the chestFINDINGSET tube in good position. NG tube courses below the visualized field of view. Cardiac and mediastinal contours are within normal limits. Mildly worse appearance of left worse than right lung airspace opacities. No definite pleural effusion or pneumothorax.IMPRESSIONMildly worse appearance of left worse than right lung airspace opacities, likely pneumonia.Electronically signed by: Saad Sommers (Nov 05, 2020 06:07:57)
[2020-11-05 06:21] LABS: BAND NEUTROPHILS % 1 % (0-10); PLATELET MORPHOLOGY COMMENT NORMAL (NORMAL)
[2020-11-05] MEDS: POTASSIUM CHLORIDE LIQ 20 MEQ UDC PO PRN (06:41)
[2020-11-05] MEDS: ALBUMIN HUMAN 25%- 100 ML 100 ML IV SCH (08:46)
[2020-11-05] MEDS: PROTONIX INJ 40 MG VIAL IVP SCH (08:47)
[2020-11-05] MEDS: NYSTATIN CREAM TOP SCH ×2 (08:47→20:16)
[2020-11-05] MEDS: LACRI-LUBE S.O.P. AFFEYE SCH ×2 (08:49→20:16)
[2020-11-05] MEDS: THIAMINE HCL INJ IVP SCH ×2 (08:49→20:15)
[2020-11-05] MEDS: VITAMIN D3 125 mcg (5,000 UNITS) NG SCH (08:50)
[2020-11-05] MEDS: PULMICORT NEB TX 0.5 MG NEB SCH ×2 (08:55→20:05)
[2020-11-05] MEDS: BROVANA IN SCH ×2 (08:55→20:05)
[2020-11-05] MEDS: DIFLUCAN 200 MG IV PREMIX* 200 MG/100 ML BAG IV SCH (10:05)
[2020-11-05] MEDS: VERSED 100 MG in NS 100 ML IV 80 ML IV PRN ×2 (10:05→23:15)
--- NOTE | 2020-11-05 12:51 | PCM.PROG ---
Progress Note - Progress Note for Day of Date of Exam: 11/05/20 - Subjective Subjective: MS. RICHARDS WAS ADMITTED FOR TREATMENT OF COVID PNEUMONIA AND HYPOXIA. SHE RECEIVED [facility]OV INFUSION IN [place], [place] ON 10/05/20. SHE REMAINS IN THE INTENSIVE CARE UNIT. SHE WAS INTUBATED ON 10/24 DUE TO RESPIRATORY FAILURE. HER VENT SETTINGS THIS MORNING ARE: A/C, RATE 30, TIDAL VOLUME 400, PEEP 15, FI02 100. SATURATIONS HAVE BEEN 88-94% THIS MORNING AND THROUGHOUT THE NIGHT WHILE ON THE VENT. SHE HAS HAD THE OCCASIONAL DROP TO 83-84%. ON EXAMINATION, HEART IS REGULAR IN RATE AND RHYTHM. BILATERAL LUNGS ARE NOTED WITH DIMINISHED LUNG SOUNDS THROUGHOUT. ABDOMEN IS ROUND, SOFT, AND NON-TENDER WITH NORMAL BOWEL SOUNDS NOTED IN ALL QUADRANTS. HIS VITALS THIS MORNING ARE: 98.9-72-30-93%-106/65. LABS WERE OBTAINED. ABNORMAL LAB VALUES INCLUDE THE FOLLOWING: WBC 2.4, RBC 2.37, HGB 8.0, HCT 23.8, PLT COUNT 29, D-DIMER 1.29, SODIUM 146, POTASSIUM 3.3, CARBON DIOXIDE 35.4, CREATININE 0.46, GLUCOSE 308, CALCIUM 8.0, TOTAL BILI 1.30, ALT 88, TOTAL PROTEIN 5.1, ALBUMIN 3.2. ABG REVEALED: PH 7.430, PC02 54, P02 71, HC03 35.8, 02 SAT 94, A-A GRADINET 575, FI02 100. CHEST XRAY WAS OBTAINED AND REVEALED: Mildly worse appearance of left worse than right lung airspace opacities, likely pneumonia. SHE HAS HAD A NEGATIVE FLUID BALANCE OVER THE PAST 24 HOURS, WHICH IS WHAT WE WANT TO SEE. SHE IS CURRENTLY RECEIVING NS AT 20 ML/HR, LEVAQUIN 500MG IV DAILY, ALBUMIN 25% IV DAILY, DIFLUCAN 200MG IV DAILY, ALBUTEROL NEBS TID, PULMICORT NEBS BID, BROVANA 15MCG BID, TUSSIONEX 5ML GT Q12H PRN, NORCO 1 TAB NG Q8H PRN, SOLU-MEDROL 40MG IV Q8H, MORPHINE 1MG Q6H PRN, ZOFRAN 4MG IV Q8H PRN, HUMULIN R SLIDING SCALE, PROTONIX 40MG IV DAILY, THIAMINE 200MG IV BID, VERSED DRIP, PROPOFOL DRIP, ROCUR ONIUM DRIP, AND THE POTASSIUM PROTOCOL. SHE CONTINUES TO RECEIVE ENTERAL FEEDINGS. WE WILL CONSULT WITH GENERAL SURGERY ABOUT THE POSSIBILITY OF A TRACHEOSTOMY TODAY. WE WILL ALSO CONSULT WITH , ORTHOPEDIC BRACE MAKER AGAIN TODAY TO SEE IF THERE ARE ANY CHANGES THAT HE RECOMMENDS. OTHERWISE, WE WILL FOLLOW UP WITH AM LABS, CHEST XRAY, ABG, AND CONTINUE TO MONITOR. TIME SPENT ON CLINICAL ASSESSMENT, REVIEWING LABS AND IMAGING, DECISION MAKING, AND DOCUMENTATION GREATER THAN 75 MINUTES. - Past Medical Family Social History Past Med/Fam/Surg Hx: No changes since H&P Allergies: Allergies ibuprofen Adverse Reaction (Verified 10/06/20 20:57) abd pain - Review of Systems ROS: No change since H&P - Vital Signs and I&O's Vital Signs: Temperature 98.9 F Pulse Rate [Apical] 71 Pulse Rate [Left] 81 Pulse Rate 70 Respiratory Rate 30 Blood Pressure [Right Arm] 117/65 Blood Pressure [Left Arm] 147/90 Blood Pressure 109/66 O2 Sat by Pulse Oximetry 95 Intake and Output: Intake & Output 11/03/20 11/04/20 11/05/20 11/06/20 11:59 11:59 11:59 11:59 Intake Total 4095 / 4095 4453 / 4453 4024 / 4024 Output Total 6300 / 6300 4300 / 4300 4600 / 4600 Balance -2205 / -2205 153 / 153 -576 / -576 - Physical Exam Oriented: Unable to test Eyes: Normal Ear: Normal Nose: Normal Throat: Normal Respiratory: Generalized, Diminished Cardiovascular: Normal : Normal Auscultation: Bowel Sounds: Normal Palpation: Normal Tenderness: Normal Skin: Normal Musculoskeletal: Normal Psychiatric: Normal Mood Description: Anxious Affect: Anxious Speech Pattern: Artificially Ventilated - Laboratory and Diagnostics Result Diagrams: 11/05/20 05:11 11/05/20 09:10 Labs: 10/24/20 20:55 Sputum - Endotracheal Wash Sputum Culture - Final 10/24/20 20:55 Sputum - Endotracheal Wash - Final 10/07/20 11:51 Blood Blood Culture - Final 10/07/20 11:49 Blood Blood Culture - Final Laboratory WBC 2.4 X10^3/uL (3.6-10.0) L 11/05/20 05:11 RBC 2.37 X10^6/uL (3.5-5.4) L 11/05/20 05:11 Hgb 8.0 g/dL (12.0-16.0) L 11/05/20 05:11 Hct 23.8 % (36.0-47.0) L 11/05/20 05:11 MCV 100.2 fL (80.0-100.0) H 11/05/20 05:11 MCH 33.9 pg (27.0-34.0) 11/05/20 05:11 MCHC 33.8 g/dL (33.0-35.0) 11/05/20 05:11 RDW 16.2 % (11.6-16.5) 11/05/20 05:11 Plt Count 29 X10^3/uL (150.0-450.0) L 11/05/20 05:11 Plt Count Comment Decreased (ADEQUATE) A 11/05/20 05:11 MPV 8.6 fL (7.4-11.0) 11/05/20 05:11 Neut % (Auto) 83.3 % (42.0-75.0) H 11/05/20 05:11 Lymph % (Auto) 11.7 % (21.0-51.0) L 11/05/20 05:11 [place] % (Auto) 4.7 % (0.0-13.0) 11/05/20 05:11 Eos % (Auto) 0.1 % (0.9-2.9) L 11/05/20 05:11 Baso % (Auto) 0.2 % (0.2-1.0) 11/05/20 05:11 Neut # (Auto) 2.0 x10^3/uL (2.2-4.8) L 11/05/20 05:11 Lymph # (Auto) 0.3 X10^3/uL (1.3-2.9) L 11/05/20 05:11 [place] # (Auto) 0.1 x10^3/uL (0.3-0.8) L 11/05/20 05:11 Eos # (Auto) 0.0 x10^3/uL (0.0-0.2) 11/05/20 05:11 Baso # (Auto) 0.0 X10^3/uL (0.0-0.1) 11/05/20 05:11 Absolute Nucleated RBC 0.5 /100WBC 11/05/20 05:11 Total Counted 100 11/05/20 05:11 Neutrophils % (Manual) 82 % (39-76) H 11/05/20 05:11 Band Neutrophils % 1 % (0-10) 11/05/20 05:11 Lymphocytes % (Manual) 14 % (13-43) 11/05/20 05:11 Monocytes % (Manual) 3 % (4-9) L 11/05/20 05:11 Eosinophils % (Manual) Cancelled 11/01/20 05:10 Basophils % (Manual) Cancelled 11/01/20 05:10 Metamyelocytes % Cancelled 11/01/20 05:10 Myelocytes % Cancelled 11/01/20 05:10 Promyelocytes % Cancelled 11/01/20 05:10 Nucleated RBCs Cancelled 11/01/20 05:10 Atypical Lymphocytes Cancelled 11/01/20 05:10 Blast Cells Cancelled 11/01/20 05:10 Smudge Cells Cancelled 11/01/20 05:10 Toxic Granulation Cancelled 11/01/20 05:10 Dohle Bodies Cancelled 11/01/20 05:10 Gutierrez Rods Cancelled 11/01/20 05:10 Plt Clumps, EDTA Cancelled 11/01/20 05:10 Giant Platelets Cancelled 11/01/20 05:10 Plt Morphology Comment Normal (NORMAL) 11/05/20 05:11 RBC Morphology Abnormal (NORMAL) A 11/05/20 05:11 Dimorphic RBCs Cancelled 11/01/20 05:10 Polychromasia Cancelled 11/01/20 05:10 Hypochromasia Cancelled 11/01/20 05:10 Poikilocytosis Cancelled 11/01/20 05:10 Basophilic Stippling Cancelled 11/01/20 05:10 Anisocytosis Cancelled 11/01/20 05:10 Microcytosis Cancelled 11/01/20 05:10 Macrocytosis Slight A 11/05/20 05:11 Spherocytes Cancelled 11/01/20 05:10 Pappenheimer Bodies Cancelled 11/01/20 05:10 Sickle Cells Cancelled 11/01/20 05:10 Target Cells Cancelled 11/01/20 05:10 Tear Drop Cells Cancelled 11/01/20 05:10 Ovalocytes Cancelled 11/01/20 05:10 Stomatocytes Cancelled 11/01/20 05:10 Helmet Cells Cancelled 11/01/20 05:10 Florian[place] Bodies Cancelled 11/01/20 05:10 [place] Rings Cancelled 11/01/20 05:10 [place] Cells Cancelled 11/01/20 05:10 Crenated Cell Cancelled 11/01/20 05:10 Acanthocytes (Spur) Cancelled 11/01/20 05:10 Rouleaux Cancelled 11/01/20 05:10 Schistocytes Cancelled 11/01/20 05:10 D-Dimer 1.29 ug/ml (0.0-0.57) H* 11/05/20 05:11 Sample Site [place] 11/05/20 04:20 ABG pH 7.430 (7.35-7.45) 11/05/20 04:20 ABG pCO2 54.0 mmHg (35.0-45.0) H* 11/05/20 04:20 ABG pO2 71.0 mmHg (80.0-100.0) L 11/05/20 04:20 ABG HCO3 35.8 mmol/L (22-26) H* 11/05/20 04:20 ABG O2 Saturation 94.0 % (90-100) 11/05/20 04:20 ABG Base Excess 9.7 mmol/L (-2.0-2.0) H 11/05/20 04:20 Loyd Test N/a 11/05/20 04:20 A-a Gradient 575.0 mmHg 11/05/20 04:20 FiO2 100.0 11/05/20 04:20 Blood Gas Comments Coby well ae 11/05/20 04:20 Sodium 146 mmol/L (136-145) H 11/05/20 05:11 Corrected Sodium 151 mmol/L (136-145) H 11/05/20 05:11 Potassium 4.0 mmol/L (3.5-5.1) 11/05/20 09:10 Chloride 107 mmol/L (98-107) 11/05/20 05:11 Carbon Dioxide 35.4 mmol/L (21-32) H 11/05/20 05:11 BUN 13 mg/dL (7-18) 11/05/20 05:11 Creatinine 0.46 mg/dL (0.55-1.02) L 11/05/20 05:11 Est GFR (MDRD) Af Amer > 60 (>60) 11/05/20 05:11 Est GFR (MDRD) Non-Af > 60 (>60) 11/05/20 05:11 Glucose 308 mg/dL (65-99) H 11/05/20 05:11 POC Glucose (mg/dL) 267 mg/dL (65-99) H 11/05/20 08:14 Calcium 8.0 mg/dL (8.5-10.1) L 11/05/20 05:11 Corrected Calcium 8.6 mg/dL (8.5-10.1) 11/05/20 05:11 Phosphorus 2.2 mg/dL (2.6-4.7) L 11/01/20 05:10 Magnesium 2.3 mg/dL (1.7-2.9) 11/05/20 05:11 Ferritin 531 ng/mL (8-252) H 10/12/20 05:33 Total Bilirubin 1.30 mg/dL (0.2-1.0) H 11/05/20 05:11 AST 25 Units/L (15-37) 11/05/20 05:11 ALT 88 Units/L (12-78) H 11/05/20 05:11 Alkaline Phosphatase 104 Units/L (46-116) 11/05/20 05:11 Creatine Kinase 180 Units/L (26-192) 10/07/20 11:49 CK-MB (CK-2) < 1.0 ng/mL (0-4.0) 10/07/20 11:49 CK/CKMB % Calc 0.6 % (<4) 10/07/20 11:49 Troponin I < 0.02 ng/mL (0-1.5) 10/07/20 11:49 C-Reactive Protein 2.30 mg/L (0-3.0) 11/04/20 04:47 B-Natriuretic Peptide 21.1 pg/mL (0-79) 11/05/20 05:11 Total Protein 5.1 g/dL (6.4-8.2) L 11/05/20 05:11 Albumin 3.2 g/dL (3.4-5.0) L 11/05/20 05:11 Globulin 1.9 g/dL (2.5-4.5) L 11/05/20 05:11 Albumin/Globulin Ratio 1.7 Ratio (1.1-2.1) 11/05/20 05:11 Prealbumin 36.9 mg/dL (18-35.7) H 11/02/20 04:30 Triglycerides 168 mg/dL (0-150) H 11/01/20 05:10 Blood Type A POSITIVE 11/01/20 11:01 - Plan (1) Pneumonia due to COVID-19 virus Status: Acute Plan: MECHANICAL VENT, IV FLUIDS, POTASSIUM AND MAGNESIUM REPLACEMENT, IV ANTIBIOTICS, IV STEROIDS, IV DIFLUCAN, NEBULIZER TREATMENTS, RESPIRATORY THERAPY, VERSED FOR SEDATION, ENTERAL NUTRITION, GLUCOSE MONITORING WITH SLIDING SCALE COVERAGE. (2) ARDS (adult respiratory distress syndrome) Status: Acute (3) Hypoxia Status: Acute (4) Thrombocytopenia Status: Acute Plan: TRANSFUSE PLATELETS
[2020-11-05] MEDS: SNACK - Diabetic Appropriate PO SCH (20:15)
[2020-11-05] MEDS: NS 1000 ML 1,000 ML IV SCH (20:16)
[2020-11-05] MEDS ORDERED: NS 500 ML IV 500 ML IV ONE (22:24)
[2020-11-06] MEDS: HumuLIN R SUBCUT PRN ×3 (01:00→16:52)
[2020-11-06] MEDS: LEVAQUIN PREMIX IV 500 MG 500 MG/100 ML BAG IV SCH (02:08)
[2020-11-06] MEDS: DIPRIVAN PREMIX 1 GRAM IV 1,000 MG/100 ML VIAL IV PRN ×5 (03:41→20:27)
[2020-11-06 04:10] LABS: ABG BASE EXCESS 8.9 mmol/L (-2.0-2.0); ABG HCO3 34.6 mmol/L (22-26)
[2020-11-06] MEDS: ACCUNEB 1.25 MG NEBULE NEB SCH ×3 (05:01→20:47)
[2020-11-06] MEDS: SOLU-Medrol 40 MG VIAL IVP SCH ×3 (05:19→21:16)
[2020-11-06 05:45] LABS: ALANINE AMINOTRANSFERASE 72 Units/L (12-78); ALBUMIN 3.4 g/dL (3.4-5.0); ALKALINE PHOSPHATASE 90 Units/L (46-116); ASPARTATE AMINO TRANSFERASE 19 Units/L (15-37); BLOOD UREA NITROGEN 11 mg/dL (7-18); CALCIUM 8.3 mg/dL (8.5-10.1); CARBON DIOXIDE 31.7 mmol/L (21-32); CHLORIDE 106 mmol/L (98-107); COR NA(FOR HYPERGLY) 150 mmol/L (136-145); SODIUM 145 mmol/L (136-145); TOTAL PROTEIN 5.4 g/dL (6.4-8.2); eGFR NON BLACK RACES > 60 (>60)
[2020-11-06] MEDS: ZEMURON 100 MG VIAL 500 MG in NS 500 ML IV 450 ML IV PRN ×2 (05:46→22:03)
[2020-11-06 05:49] LABS: BASOPHILS % (AUTO) 0.1 % (0.2-1.0); HEMATOCRIT 24.8 % (36.0-47.0); HEMOGLOBIN 8.5 g/dL (12.0-16.0); LYMPHOCYTES # (AUTO) 0.2 X10^3/uL (1.3-2.9); LYMPHOCYTES % (AUTO) 7.9 % (21.0-51.0); MEAN CORPUSCULAR HEMOGLOBIN 34.3 pg (27.0-34.0); MEAN CORPUSCULAR HGB CONC 34.2 g/dL (33.0-35.0); MEAN CORPUSCULAR VOLUME 100.2 fL (80.0-100.0); MEAN PLATELET VOLUME 9.7 fL (7.4-11.0); MONOCYTES # (AUTO) 0.1 x10^3/uL (0.3-0.8); MONOCYTES % (AUTO) 4.7 % (0.0-13.0); NEUTROPHILS # (AUTO) 2.3 x10^3/uL (2.2-4.8); NEUTROPHILS % (AUTO) 87.3 % (42.0-75.0); PLATELET COUNT 29 X10^3/uL (150.0-450.0); RED BLOOD COUNT 2.47 X10^6/uL (3.5-5.4); RED CELL DISTRIBUTION WIDTH 16.4 % (11.6-16.5); WHITE BLOOD COUNT 2.6 X10^3/uL (3.6-10.0)
--- NOTE | 2020-11-06 06:22 | RAD ---
HISTORYSOB, VENTILATOR DEPENDENCESTUDYCHEST, 1 VIEWCOMPARISONOne day prior.TECHNIQUEAP view of the chestFINDINGSET tube in good position. NG tube courses below the visualized field of view. Cardiac and mediastinal contours are within normal limits. No significant change in bilateral airspace and interstitial opacities. No definite pleural effusion or pneumothorax.IMPRESSIONNo significant change.Electronically signed by: Saad Sommers (Nov 06, 2020 06:20:03)
[2020-11-06] MEDS: K-RIDER 10 MEQ/NS 100 ML 10 MEQ/100 ML BAG IV PRN (06:31)
[2020-11-06] MEDS: NS 1000 ML 1,000 ML IV SCH ×3 (08:22→22:02)
[2020-11-06] MEDS: LACRI-LUBE S.O.P. AFFEYE SCH ×2 (08:23→20:14)
[2020-11-06] MEDS: PROTONIX INJ 40 MG VIAL IVP SCH (08:23)
[2020-11-06] MEDS: ALBUMIN HUMAN 25%- 100 ML 100 ML IV SCH (08:23)
[2020-11-06] MEDS: NYSTATIN CREAM TOP SCH ×2 (08:24→20:15)
[2020-11-06] MEDS: VITAMIN D3 125 mcg (5,000 UNITS) NG SCH (08:24)
[2020-11-06] MEDS: THIAMINE HCL INJ IVP SCH ×2 (08:24→20:15)
[2020-11-06] MEDS: PULMICORT NEB TX 0.5 MG NEB SCH ×2 (09:00→20:47)
[2020-11-06] MEDS: BROVANA IN SCH ×2 (09:00→20:47)
[2020-11-06] MEDS: DIFLUCAN 200 MG IV PREMIX* 200 MG/100 ML BAG IV SCH (09:15)
[2020-11-06] MEDS: DIAMOX PO SCH (10:40)
--- NOTE | 2020-11-06 12:41 | PCM.PROG ---
Progress Note - Progress Note for Day of Date of Exam: 11/06/20 - Subjective Subjective: MS. RICHARDS WAS ADMITTED FOR TREATMENT OF COVID PNEUMONIA AND HYPOXIA. SHE RECEIVED [facility]OV INFUSION IN [place], [place] ON 10/05/20. SHE REMAINS IN THE INTENSIVE CARE UNIT. SHE WAS INTUBATED ON 10/24 DUE TO RESPIRATORY FAILURE. HER VENT SETTINGS THIS MORNING ARE: A/C, RATE 30, TIDAL VOLUME 400, PEEP 15, FI02 100. SATURATIONS HAVE BEEN 92-95% THIS MORNING AND THROUGHOUT THE NIGHT WHILE ON THE VENT. ON EXAMINATION, HEART IS REGULAR IN RATE AND RHYTHM. BILATERAL LUNGS ARE NOTED WITH DIMINISHED LUNG SOUNDS THROUGHOUT. ABDOMEN IS ROUND, SOFT, AND NON-TENDER WITH NORMAL BOWEL SOUNDS NOTED IN ALL QUADRANTS. HIS VITALS THIS MORNING ARE: 98.3-80-30-92%-109/62. LABS WERE OBTAINED. ABNORMAL LAB VALUES INCLUDE THE FOLLOWING: WBC 2.6, RBC 2.47, HGB 8.5, HCT 24.8, PLT COUNT 29, CREATININE 0.40, GLUCOSE 305, CALCIUM 8.3, TOTAL BILI 1.40, TOTAL PROTEIN 5.4. ABG REVEALED: PH 7.440, PC02 51, P02 64, HC03 34.6, 02 SAT 93, BASE EXCESS 8.9, A-A GRADIENT 585, FI02 100. CHEST XRAY WAS OBTAINED AND REVEALED: ET tube in good position. NG tube courses below the visualized field of view. Cardiac and mediastinal contours are within normal limits. No significant change in bilateral airspace and interstitial opacities. No definite pleural effusion or pneumothorax. SHE IS CURRENTLY RECEIVING NS AT 20 ML/HR, LEVAQUIN 500MG IV DAILY, ALBUMIN 25% IV DAILY, DIFLUCAN 200MG IV DAILY, ALBUTEROL NEBS TID, PU LMICORT NEBS BID, BROVANA 15MCG BID, TUSSIONEX 5ML GT Q12H PRN, NORCO 1 TAB NG Q8H PRN, SOLU-MEDROL 40MG IV Q8H, MORPHINE 1MG Q6H PRN, ZOFRAN 4MG IV Q8H PRN, HUMULIN R SLIDING SCALE, PROTONIX 40MG IV DAILY, THIAMINE 200MG IV BID, VERSED DRIP, PROPOFOL DRIP, ROCURONIUM DRIP, AND THE POTASSIUM PROTOCOL. SHE CONTINUES TO RECEIVE ENTERAL FEEDINGS. WE WILL ADD DIAMOX 250MG PO DAILY TODAY. OTHERWISE, WE WILL FOLLOW UP WITH AM LABS, CHEST XRAY, ABG, AND CONTINUE TO MONITOR. TIME SPENT ON CLINICAL ASSESSMENT, REVIEWING LABS AND IMAGING, DECISION MAKING, AND DOCUMENTATION GREATER THAN 75 MINUTES. - Past Medical Family Social History Past Med/Fam/Surg Hx: No changes since H&P Allergies: Allergies ibuprofen Adverse Reaction (Verified 10/06/20 20:57) abd pain - Review of Systems ROS: No change since H&P - Vital Signs and I&O's Vital Signs: Temperature 98.3 F Pulse Rate [Apical] 71 Pulse Rate [Left] 81 Pulse Rate 82 Respiratory Rate 30 Blood Pressure [Right Arm] 117/65 Blood Pressure [Left Arm] 147/90 Blood Pressure 115/62 O2 Sat by Pulse Oximetry 93 Intake and Output: Intake & Output 11/04/20 11/05/20 11/06/20 11/07/20 11:59 11:59 11:59 11:59 Intake Total 4453 / 4453 4024 / 4024 3850 / 3850 Output Total 4300 / 4300 4600 / 4600 3650 / 3650 Balance 153 / 153 -576 / -576 200 / 200 - Physical Exam Oriented: Unable to test Eyes: Normal Ear: Normal Nose: Normal Throat: Normal Respiratory: Generalized, Diminished Cardiovascular: Normal : Normal Auscultation: Bowel Sounds: Normal Palpation: Normal Tenderness: Normal Skin: Normal Musculoskeletal: Normal Psychiatric: Normal Mood Description: Anxious Affect: Anxious Speech Pattern: Artificially Ventilated - Laboratory and Diagnostics Result Diagrams: 11/06/20 04:27 11/06/20 04:27 Labs: 10/24/20 20:55 Sputum - Endotracheal Wash Sputum Culture - Final 10/24/20 20:55 Sputum - Endotracheal Wash - Final 10/07/20 11:51 Blood Blood Culture - Final 10/07/20 11:49 Blood Blood Culture - Final Laboratory WBC 2.6 X10^3/uL (3.6-10.0) L 11/06/20 04:27 RBC 2.47 X10^6/uL (3.5-5.4) L 11/06/20 04:27 Hgb 8.5 g/dL (12.0-16.0) L 11/06/20 04:27 Hct 24.8 % (36.0-47.0) L 11/06/20 04:27 MCV 100.2 fL (80.0-100.0) H 11/06/20 04:27 MCH 34.3 pg (27.0-34.0) H 11/06/20 04:27 MCHC 34.2 g/dL (33.0-35.0) 11/06/20 04:27 RDW 16.4 % (11.6-16.5) 11/06/20 04:27 Plt Count 29 X10^3/uL (150.0-450.0) L 11/06/20 04:27 Plt Count Comment Decreased (ADEQUATE) A 11/05/20 05:11 MPV 9.7 fL (7.4-11.0) 11/06/20 04:27 Neut % (Auto) 87.3 % (42.0-75.0) H 11/06/20 04:27 Lymph % (Auto) 7.9 % (21.0-51.0) L 11/06/20 04:27 [place] % (Auto) 4.7 % (0.0-13.0) 11/06/20 04:27 Eos % (Auto) 0.0 % (0.9-2.9) L 11/06/20 04:27 Baso % (Auto) 0.1 % (0.2-1.0) L 11/06/20 04:27 Neut # (Auto) 2.3 x10^3/uL (2.2-4.8) 11/06/20 04:27 Lymph # (Auto) 0.2 X10^3/uL (1.3-2.9) L 11/06/20 04:27 [place] # (Auto) 0.1 x10^3/uL (0.3-0.8) L 11/06/20 04:27 Eos # (Auto) 0.0 x10^3/uL (0.0-0.2) 11/06/20 04:27 Baso # (Auto) 0.0 X10^3/uL (0.0-0.1) 11/06/20 04:27 Absolute Nucleated RBC 0.6 /100WBC 11/06/20 04:27 Total Counted 100 11/05/20 05:11 Neutrophils % (Manual) 82 % (39-76) H 11/05/20 05:11 Band Neutrophils % 1 % (0-10) 11/05/20 05:11 Lymphocytes % (Manual) 14 % (13-43) 11/05/20 05:11 Monocytes % (Manual) 3 % (4-9) L 11/05/20 05:11 Eosinophils % (Manual) Cancelled 11/01/20 05:10 Basophils % (Manual) Cancelled 11/01/20 05:10 Metamyelocytes % Cancelled 11/01/20 05:10 Myelocytes % Cancelled 11/01/20 05:10 Promyelocytes % Cancelled 11/01/20 05:10 Nucleated RBCs Cancelled 11/01/20 05:10 Atypical Lymphocytes Cancelled 11/01/20 05:10 Blast Cells Cancelled 11/01/20 05:10 Smudge Cells Cancelled 11/01/20 05:10 Toxic Granulation Cancelled 11/01/20 05:10 Dohle Bodies Cancelled 11/01/20 05:10 Gutierrez Rods Cancelled 11/01/20 05:10 Plt Clumps, EDTA Cancelled 11/01/20 05:10 Giant Platelets Cancelled 11/01/20 05:10 Plt Morphology Comment Normal (NORMAL) 11/05/20 05:11 RBC Morphology Abnormal (NORMAL) A 11/05/20 05:11 Dimorphic RBCs Cancelled 11/01/20 05:10 Polychromasia Cancelled 11/01/20 05:10 Hypochromasia Cancelled 11/01/20 05:10 Poikilocytosis Cancelled 11/01/20 05:10 Basophilic Stippling Cancelled 11/01/20 05:10 Anisocytosis Cancelled 11/01/20 05:10 Microcytosis Cancelled 11/01/20 05:10 Macrocytosis Slight A 11/05/20 05:11 Spherocytes Cancelled 11/01/20 05:10 Pappenheimer Bodies Cancelled 11/01/20 05:10 Sickle Cells Cancelled 11/01/20 05:10 Target Cells Cancelled 11/01/20 05:10 Tear Drop Cells Cancelled 11/01/20 05:10 Ovalocytes Cancelled 11/01/20 05:10 Stomatocytes Cancelled 11/01/20 05:10 Helmet Cells Cancelled 11/01/20 05:10 [place] Bodies Cancelled 11/01/20 05:10 [place] Rings Cancelled 11/01/20 05:10 [place] Cells Cancelled 11/01/20 05:10 Crenated Cell Cancelled 11/01/20 05:10 Acanthocytes (Spur) Cancelled 11/01/20 05:10 Rouleaux Cancelled 11/01/20 05:10 Schistocytes Cancelled 11/01/20 05:10 PT 15.7 SECONDS (11.8-14.3) 11/06/20 04:27 INR Target Range - 11/06/20 04:27 INR 1.31 (0.8-1.3) H 11/06/20 04:27 D-Dimer 1.29 ug/ml (0.0-0.57) H* 11/05/20 05:11 Sample Site Elin 11/06/20 04:05 ABG pH 7.440 (7.35-7.45) 11/06/20 04:05 ABG pCO2 51.0 mmHg (35.0-45.0) H* 11/06/20 04:05 ABG pO2 64.0 mmHg (80.0-100.0) L 11/06/20 04:05 ABG HCO3 34.6 mmol/L (22-26) H* 11/06/20 04:05 ABG O2 Saturation 93.0 % (90-100) 11/06/20 04:05 ABG Base Excess 8.9 mmol/L (-2.0-2.0) H 11/06/20 04:05 Loyd Test N/a 11/06/20 04:05 A-a Gradient 585.0 mmHg 11/06/20 04:05 FiO2 100.0 11/06/20 04:05 Blood Gas Comments Coby well ae 11/06/20 04:05 Sodium 145 mmol/L (136-145) 11/06/20 04:27 Corrected Sodium 150 mmol/L (136-145) H 11/06/20 04:27 Potassium 3.5 mmol/L (3.5-5.1) 11/06/20 04:27 Chloride 106 mmol/L (98-107) 11/06/20 04:27 Carbon Dioxide 31.7 mmol/L (21-32) 11/06/20 04:27 BUN 11 mg/dL (7-18) 11/06/20 04:27 Creatinine 0.40 mg/dL (0.55-1.02) L 11/06/20 04:27 Est GFR (MDRD) Af Amer > 60 (>60) 11/06/20 04:27 Est GFR (MDRD) Non-Af > 60 (>60) 11/06/20 04:27 Glucose 305 mg/dL (65-99) H 11/06/20 04:27 POC Glucose (mg/dL) 284 mg/dL (65-99) H 11/06/20 07:57 Calcium 8.3 mg/dL (8.5-10.1) L 11/06/20 04:27 Corrected Calcium TNP 11/06/20 04:27 Phosphorus 2.2 mg/dL (2.6-4.7) L 11/01/20 05:10 Magnesium 2.3 mg/dL (1.7-2.9) 11/05/20 05:11 Ferritin 531 ng/mL (8-252) H 10/12/20 05:33 Total Bilirubin 1.40 mg/dL (0.2-1.0) H 11/06/20 04:27 AST 19 Units/L (15-37) 11/06/20 04:27 ALT 72 Units/L (12-78) 11/06/20 04:27 Alkaline Phosphatase 90 Units/L (46-116) 11/06/20 04:27 Creatine Kinase 180 Units/L (26-192) 10/07/20 11:49 CK-MB (CK-2) < 1.0 ng/mL (0-4.0) 10/07/20 11:49 CK/CKMB % Calc 0.6 % (<4) 10/07/20 11:49 Troponin I < 0.02 ng/mL (0-1.5) 10/07/20 11:49 C-Reactive Protein 2.30 mg/L (0-3.0) 11/04/20 04:47 B-Natriuretic Peptide 18.8 pg/mL (0-79) 11/06/20 04:27 Total Protein 5.4 g/dL (6.4-8.2) L 11/06/20 04:27 Albumin 3.4 g/dL (3.4-5.0) 11/06/20 04:27 Globulin 2.0 g/dL (2.5-4.5) L 11/06/20 04:27 Albumin/Globulin Ratio 1.7 Ratio (1.1-2.1) 11/06/20 04:27 Prealbumin 36.9 mg/dL (18-35.7) H 11/02/20 04:30 Triglycerides 168 mg/dL (0-150) H 11/01/20 05:10 Blood Type A POSITIVE 11/01/20 11:01 - Plan (1) Pneumonia due to COVID-19 virus Status: Acute Plan: MECHANICAL VENT, IV FLUIDS, DIAMOX 250MG PO DAILY, POTASSIUM AND MAGNESIUM REPLACEMENT, IV ANTIBIOTICS, IV STEROIDS, IV DIFLUCAN, NEBULIZER TREATMENTS, RESPIRATORY THERAPY, VERSED FOR SEDATION, ENTERAL NUTRITION, GLUCOSE MONITORING WITH SLIDING SCALE COVERAGE. (2) ARDS (adult respiratory distress syndrome) Status: Acute (3) Hypoxia Status: Acute (4) Thrombocytopenia Status: Acute Plan: TRANSFUSE PLATELETS
[2020-11-06] MEDS: SNACK - Diabetic Appropriate PO SCH (20:14)
[2020-11-07] MEDS: HumuLIN R SUBCUT PRN ×3 (00:14→17:39)
[2020-11-07] MEDS: DIPRIVAN PREMIX 1 GRAM IV 1,000 MG/100 ML VIAL IV PRN ×6 (00:30→23:44)
[2020-11-07] MEDS: LEVAQUIN PREMIX IV 500 MG 500 MG/100 ML BAG IV SCH (02:09)
[2020-11-07 04:09] LABS: ABG BASE EXCESS 9.1 mmol/L (-2.0-2.0)
[2020-11-07 04:10] LABS: ABG HCO3 35.5 mmol/L (22-26)
[2020-11-07] MEDS: VERSED 100 MG in NS 100 ML IV 80 ML IV PRN ×2 (04:46→18:43)
[2020-11-07] MEDS: SOLU-Medrol 40 MG VIAL IVP SCH ×3 (05:03→22:42)
[2020-11-07] MEDS: ACCUNEB 1.25 MG NEBULE NEB SCH ×3 (05:13→20:56)
[2020-11-07 05:23] LABS: BASOPHILS % (AUTO) 0 % (0.2-1.0); EOSINOPHILS % (AUTO) 0.1 % (0.9-2.9); HEMATOCRIT 25.3 % (36.0-47.0); HEMOGLOBIN 8.5 g/dL (12.0-16.0); LYMPHOCYTES # (AUTO) 0.2 X10^3/uL (1.3-2.9); LYMPHOCYTES % (AUTO) 5.6 % (21.0-51.0); MEAN CORPUSCULAR HGB CONC 33.7 g/dL (33.0-35.0); MEAN CORPUSCULAR VOLUME 100.8 fL (80.0-100.0); MEAN PLATELET VOLUME 8.9 fL (7.4-11.0); MONOCYTES # (AUTO) 0.1 x10^3/uL (0.3-0.8); MONOCYTES % (AUTO) 4.2 % (0.0-13.0); NEUTROPHILS # (AUTO) 2.6 x10^3/uL (2.2-4.8); NEUTROPHILS % (AUTO) 90.1 % (42.0-75.0); PLATELET COUNT 27 X10^3/uL (150.0-450.0); RED BLOOD COUNT 2.51 X10^6/uL (3.5-5.4); RED CELL DISTRIBUTION WIDTH 16.9 % (11.6-16.5); WHITE BLOOD COUNT 2.9 X10^3/uL (3.6-10.0)
[2020-11-07 05:34] LABS: ALANINE AMINOTRANSFERASE 63 Units/L (12-78); ALBUMIN 3.3 g/dL (3.4-5.0); ALKALINE PHOSPHATASE 87 Units/L (46-116); ASPARTATE AMINO TRANSFERASE 19 Units/L (15-37); BLOOD UREA NITROGEN 9 mg/dL (7-18); CALCIUM 8.2 mg/dL (8.5-10.1); CARBON DIOXIDE 32.7 mmol/L (21-32); CHLORIDE 108 mmol/L (98-107); COR CA(FOR HYPOALB) 8.8 mg/dL (8.5-10.1); COR NA(FOR HYPERGLY) 152 mmol/L (136-145); CREATININE 0.38 mg/dL (0.55-1.02); SODIUM 147 mmol/L (136-145); TOTAL PROTEIN 5.4 g/dL (6.4-8.2); eGFR NON BLACK RACES > 60 (>60)
[2020-11-07] MEDS: K-RIDER 10 MEQ/NS 100 ML 10 MEQ/100 ML BAG IV PRN ×2 (06:05→08:10)
--- NOTE | 2020-11-07 06:06 | RAD ---
HISTORYSOB, VENTILATOR DEPENDENCESTUDYCHEST, 1 [id number]/28/2021.TECHNIQUEAP view of the chestFINDINGSET tube in good position. NG tube courses below the visualized field of view. Cardiac and mediastinal contours are within normal limits. No significant change in left worse than right lung airspace and interstitial opacities. No definite pleural effusion or pneumothorax.IMPRESSIONNo significant change.Electronically signed by: Saad Sommers (Nov 07, 2020 06:05:23)
[2020-11-07 06:11] LABS: BAND NEUTROPHILS % 6 % (0-10); PLATELET MORPHOLOGY COMMENT NORMAL (NORMAL)
[2020-11-07 06:15] LABS: ANISOCYTOSIS SLIGHT; HYPOCHROMASIA SLIGHT
[2020-11-07] MEDS: BROVANA IN SCH ×2 (08:32→20:56)
[2020-11-07] MEDS: PULMICORT NEB TX 0.5 MG NEB SCH ×2 (08:32→20:56)
[2020-11-07] MEDS: LACRI-LUBE S.O.P. AFFEYE SCH ×2 (09:13→20:01)
[2020-11-07] MEDS: ALBUMIN HUMAN 25%- 100 ML 100 ML IV SCH (09:13)
[2020-11-07] MEDS: PROTONIX INJ 40 MG VIAL IVP SCH (09:14)
[2020-11-07] MEDS: THIAMINE HCL INJ IVP SCH ×2 (09:14→20:01)
[2020-11-07] MEDS: NYSTATIN CREAM TOP SCH ×2 (09:14→20:01)
[2020-11-07] MEDS: DIFLUCAN 200 MG IV PREMIX* 200 MG/100 ML BAG IV SCH (09:20)
[2020-11-07] MEDS: NS 1000 ML 1,000 ML IV SCH ×3 (10:57→22:43)
--- NOTE | 2020-11-07 11:18 | PCM.PROG ---
Progress Note - Progress Note for Day of Date of Exam: 11/07/20 - Subjective Subjective: MS. RICHARDS WAS ADMITTED FOR TREATMENT OF COVID PNEUMONIA AND HYPOXIA. SHE RECEIVED [facility]OV INFUSION IN [place], [place] ON 10/05/20. SHE REMAINS IN THE INTENSIVE CARE UNIT. SHE WAS INTUBATED ON 10/24 DUE TO RESPIRATORY FAILURE. HER VENT SETTINGS THIS MORNING ARE: A/C, RATE 30, TIDAL VOLUME 400, PEEP 15, FI02 90. SATURATIONS HAVE BEEN 93-98% THIS MORNING AND THROUGHOUT THE NIGHT WHILE ON THE VENT. ON EXAMINATION, HEART IS REGULAR IN RATE AND RHYTHM. BILATERAL LUNGS ARE NOTED WITH DIMINISHED LUNG SOUNDS THROUGHOUT. ABDOMEN IS ROUND, SOFT, AND NON-TENDER WITH NORMAL BOWEL SOUNDS NOTED IN ALL QUADRANTS. HIS VITALS THIS MORNING ARE: 98.3-92-30-93%-151/74. LABS WERE OBTAINED. ABNORMAL LAB VALUES INCLUDE THE FOLLOWING: WBC 2.9, RBC 2.51, HGB 8.5, HCT 25.3, PLT COUNT 27, SODIUM 147, POTASSIUM 3.4, CHLORIDE 108, CARBON DIOXIDE 32.7, CREATININE 0.38, GLUCOSE 288, CALCIUM 8.2, TOTAL BILI 1.40, TOTAL PROTEIN 5.4, ALBUMIN 3.3. ABG REVEALED: PH 7.410, PC02 56, P02 90, HC03 35.5, 02 SAT 97, BASE EXCESS 9.1, A-A GRADIENT 553, FI02 100. CHEST XRAY WAS OBTAINED AND REVEALED: ET tube in good position. NG tube courses below the visualized field of view. Cardiac and mediastinal contours are within normal limits. No significant change in left worse than right lung airspace and interstitial opacities. No definite pleural effusion or pneumothorax. SHE IS CURRENTLY RECEIVING NS AT 20 ML/HR, LEVAQUIN 500MG IV DAILY, ALBUMIN 25% IV DAILY, DIFLUCAN 200MG IV DAILY, DIAMOX 250MG GT DAILY, ALBUTEROL NEBS TID, PULMICORT NEBS BID, BROVANA 15MCG BID, TUSSIONEX 5ML GT Q12H PRN, NORCO 1 TAB NG Q8H PRN, SOLU-MEDROL 40MG IV Q8H, MORPHINE 1MG Q6H PRN, ZOFRAN 4MG IV Q8H PRN, HUMULIN R SLIDING SCALE, PROTONIX 40MG IV DAILY, THIAMINE 200MG IV BID, VERSED DRIP, PROPOFOL DRIP, ROCURONIUM DRIP, AND THE PO TASSIUM PROTOCOL. SHE CONTINUES TO RECEIVE ENTERAL FEEDINGS. SHE IS SCHEDULED FOR A TRACHEOSTOMY TODAY. OTHERWISE, WE WILL FOLLOW UP WITH AM LABS, CHEST XRAY, ABG, AND CONTINUE TO MONITOR. TIME SPENT ON CLINICAL ASSESSMENT, REVIEWING LABS AND IMAGING, DECISION MAKING, AND DOCUMENTATION GREATER THAN 75 MINUTES. - Past Medical Family Social History Past Med/Fam/Surg Hx: No changes since H&P Allergies: Allergies ibuprofen Adverse Reaction (Verified 10/06/20 20:57) abd pain - Review of Systems ROS: No change since H&P - Vital Signs and I&O's Vital Signs: Temperature 98.3 F Pulse Rate [Apical] 71 Pulse Rate [Left] 81 Pulse Rate 92 Respiratory Rate 30 Blood Pressure [Right Arm] 117/65 Blood Pressure [Left Arm] 147/90 Blood Pressure 151/74 O2 Sat by Pulse Oximetry 93 Intake and Output: Intake & Output 11/04/20 11/05/20 11/06/20 11/07/20 11:59 11:59 11:59 11:59 Intake Total 4453 / 4453 4024 / 4024 3950 / 3950 3627 / 3627 Output Total 4300 / 4300 4600 / 4600 3650 / 3650 4500 / 4500 Balance 153 / 153 -576 / -576 300 / 300 -873 / -873 - Physical Exam Oriented: Unable to test Eyes: Normal Ear: Normal Nose: Normal Throat: Normal Respiratory: Generalized, Diminished Cardiovascular: Normal : Normal Auscultation: Bowel Sounds: Normal Tenderness: Normal Skin: Normal Musculoskeletal: Normal Psychiatric: Normal Mood Description: Anxious Affect: Anxious Speech Pattern: Artificially Ventilated - Laboratory and Diagnostics Result Diagrams: 11/07/20 04:34 11/07/20 04:34 Labs: 10/24/20 20:55 Sputum - Endotracheal Wash Sputum Culture - Final 10/24/20 20:55 Sputum - Endotracheal Wash - Final 10/07/20 11:51 Blood Blood Culture - Final 10/07/20 11:49 Blood Blood Culture - Final Laboratory WBC 2.9 X10^3/uL (3.6-10.0) L 11/07/20 04:34 RBC 2.51 X10^6/uL (3.5-5.4) L 11/07/20 04:34 Hgb 8.5 g/dL (12.0-16.0) L 11/07/20 04:34 Hct 25.3 % (36.0-47.0) L 11/07/20 04:34 MCV 100.8 fL (80.0-100.0) H 11/07/20 04:34 MCH 34.0 pg (27.0-34.0) 11/07/20 04:34 MCHC 33.7 g/dL (33.0-35.0) 11/07/20 04:34 RDW 16.9 % (11.6-16.5) H 11/07/20 04:34 Plt Count 27 X10^3/uL (150.0-450.0) L 11/07/20 04:34 Plt Count Comment Decreased (ADEQUATE) A 11/07/20 04:34 MPV 8.9 fL (7.4-11.0) 11/07/20 04:34 Neut % (Auto) 90.1 % (42.0-75.0) H 11/07/20 04:34 Lymph % (Auto) 5.6 % (21.0-51.0) L 11/07/20 04:34 [place] % (Auto) 4.2 % (0.0-13.0) 11/07/20 04:34 Eos % (Auto) 0.1 % (0.9-2.9) L 11/07/20 04:34 Baso % (Auto) 0 % (0.2-1.0) L 11/07/20 04:34 Neut # (Auto) 2.6 x10^3/uL (2.2-4.8) 11/07/20 04:34 Lymph # (Auto) 0.2 X10^3/uL (1.3-2.9) L 11/07/20 04:34 [place] # (Auto) 0.1 x10^3/uL (0.3-0.8) L 11/07/20 04:34 Eos # (Auto) 0.0 x10^3/uL (0.0-0.2) 11/07/20 04:34 Baso # (Auto) 0.0 X10^3/uL (0.0-0.1) 11/07/20 04:34 Absolute Nucleated RBC 0.9 /100WBC 11/07/20 04:34 Total Counted 100 11/07/20 04:34 Neutrophils % (Manual) 86 % (39-76) H 11/07/20 04:34 Band Neutrophils % 6 % (0-10) 11/07/20 04:34 Lymphocytes % (Manual) 4 % (13-43) L 11/07/20 04:34 Monocytes % (Manual) 3 % (4-9) L 11/07/20 04:34 Eosinophils % (Manual) 1 % (0-6) 11/07/20 04:34 Basophils % (Manual) Cancelled 11/01/20 05:10 Metamyelocytes % Cancelled 11/01/20 05:10 Myelocytes % Cancelled 11/01/20 05:10 Promyelocytes % Cancelled 11/01/20 05:10 Nucleated RBCs Cancelled 11/01/20 05:10 Atypical Lymphocytes Cancelled 11/01/20 05:10 Blast Cells Cancelled 11/01/20 05:10 Smudge Cells Cancelled 11/01/20 05:10 Toxic Granulation Cancelled 11/01/20 05:10 Dohle Bodies Cancelled 11/01/20 05:10 Gutierrez Rods Cancelled 11/01/20 05:10 Plt Clumps, EDTA Cancelled 11/01/20 05:10 Giant Platelets Cancelled 11/01/20 05:10 Plt Morphology Comment Normal (NORMAL) 11/07/20 04:34 RBC Morphology Abnormal (NORMAL) A 11/07/20 04:34 Dimorphic RBCs Cancelled 11/01/20 05:10 Polychromasia Cancelled 11/01/20 05:10 Hypochromasia Slight A 11/07/20 04:34 Poikilocytosis Cancelled 11/01/20 05:10 Basophilic Stippling Cancelled 11/01/20 05:10 Anisocytosis Slight A 11/07/20 04:34 Microcytosis Cancelled 11/01/20 05:10 Macrocytosis Slight A 11/07/20 04:34 Spherocytes Cancelled 11/01/20 05:10 Pappenheimer Bodies Cancelled 11/01/20 05:10 Sickle Cells Cancelled 11/01/20 05:10 Target Cells Cancelled 11/01/20 05:10 Tear Drop Cells Cancelled 11/01/20 05:10 Ovalocytes Cancelled 11/01/20 05:10 Stomatocytes Cancelled 11/01/20 05:10 Helmet Cells Cancelled 11/01/20 05:10 [place] Bodies Cancelled 11/01/20 05:10 [place] Rings Cancelled 11/01/20 05:10 [place] Cells Cancelled 11/01/20 05:10 Crenated Cell Cancelled 11/01/20 05:10 Acanthocytes (Spur) Cancelled 11/01/20 05:10 Rouleaux Cancelled 11/01/20 05:10 Schistocytes Cancelled 11/01/20 05:10 PT 15.7 SECONDS (11.8-14.3) 11/06/20 04:27 INR Target Range - 11/06/20 04:27 INR 1.31 (0.8-1.3) H 11/06/20 04:27 D-Dimer 1.29 ug/ml (0.0-0.57) H* 11/05/20 05:11 Sample Site Art-line 11/07/20 04:07 ABG pH 7.410 (7.35-7.45) 11/07/20 04:07 ABG pCO2 56.0 mmHg (35.0-45.0) H* 11/07/20 04:07 ABG pO2 90.0 mmHg (80.0-100.0) 11/07/20 04:07 ABG HCO3 35.5 mmol/L (22-26) H* 11/07/20 04:07 ABG O2 Saturation 97.0 % (90-100) 11/07/20 04:07 ABG Base Excess 9.1 mmol/L (-2.0-2.0) H 11/07/20 04:07 Loyd Test Na 11/07/20 04:07 A-a Gradient 553.0 mmHg 11/07/20 04:07 FiO2 100.0 11/07/20 04:07 Blood Gas Comments Coby abg well-mtf 11/07/20 04:07 Sodium 147 mmol/L (136-145) H 11/07/20 04:34 Corrected Sodium 152 mmol/L (136-145) H 11/07/20 04:34 Potassium 3.4 mmol/L (3.5-5.1) L 11/07/20 04:34 Chloride 108 mmol/L (98-107) H 11/07/20 04:34 Carbon Dioxide 32.7 mmol/L (21-32) H 11/07/20 04:34 BUN 9 mg/dL (7-18) 11/07/20 04:34 Creatinine 0.38 mg/dL (0.55-1.02) L 11/07/20 04:34 Est GFR (MDRD) Af Amer > 60 (>60) 11/07/20 04:34 Est GFR (MDRD) Non-Af > 60 (>60) 11/07/20 04:34 Glucose 288 mg/dL (65-99) H 11/07/20 04:34 POC Glucose (mg/dL) 266 mg/dL (65-99) H 11/07/20 07:41 Calcium 8.2 mg/dL (8.5-10.1) L 11/07/20 04:34 Corrected Calcium 8.8 mg/dL (8.5-10.1) 11/07/20 04:34 Phosphorus 2.2 mg/dL (2.6-4.7) L 11/01/20 05:10 Magnesium 2.3 mg/dL (1.7-2.9) 11/05/20 05:11 Ferritin 531 ng/mL (8-252) H 10/12/20 05:33 Total Bilirubin 1.40 mg/dL (0.2-1.0) H 11/07/20 04:34 AST 19 Units/L (15-37) 11/07/20 04:34 ALT 63 Units/L (12-78) 11/07/20 04:34 Alkaline Phosphatase 87 Units/L (46-116) 11/07/20 04:34 Creatine Kinase 180 Units/L (26-192) 10/07/20 11:49 CK-MB (CK-2) < 1.0 ng/mL (0-4.0) 10/07/20 11:49 CK/CKMB % Calc 0.6 % (<4) 10/07/20 11:49 Troponin I < 0.02 ng/mL (0-1.5) 10/07/20 11:49 C-Reactive Protein 2.30 mg/L (0-3.0) 11/04/20 04:47 B-Natriuretic Peptide 22.1 pg/mL (0-79) 11/07/20 04:34 Total Protein 5.4 g/dL (6.4-8.2) L 11/07/20 04:34 Albumin 3.3 g/dL (3.4-5.0) L 11/07/20 04:34 Globulin 2.1 g/dL (2.5-4.5) L 11/07/20 04:34 Albumin/Globulin Ratio 1.6 Ratio (1.1-2.1) 11/07/20 04:34 Prealbumin 36.9 mg/dL (18-35.7) H 11/02/20 04:30 Triglycerides 168 mg/dL (0-150) H 11/01/20 05:10 Blood Type A POSITIVE 11/01/20 11:01 - Plan (1) Pneumonia due to COVID-19 virus Status: Acute Plan: MECHANICAL VENT, IV FLUIDS, DIAMOX 250MG PO DAILY, POTASSIUM AND MAGNESIUM REPLACEMENT, IV ANTIBIOTICS, IV STEROIDS, IV DIFLUCAN, NEBULIZER TREATMENTS, RESPIRATORY THERAPY, VERSED FOR SEDATION, ENTERAL NUTRITION, GLUCOSE MONITORING WITH SLIDING SCALE COVERAGE. (2) ARDS (adult respiratory distress syndrome) Status: Acute (3) Hypoxia Status: Acute (4) Thrombocytopenia Status: Acute Plan: TRANSFUSE PLATELETS
[2020-11-07] MEDS ORDERED: BETADINE SOLN ONE (12:41)
[2020-11-07] MEDS ORDERED: ZEMURON 50 MG VIAL ONE (13:16)
[2020-11-07] MEDS ORDERED: FENTANYL VIAL INJ 100 mcg ONE (13:16)
[2020-11-07] MEDS ORDERED: XYLOCAINE 2 % (PLAIN) ONE (13:29)
[2020-11-07] MEDS ORDERED: VERSED ONE (13:29)
[2020-11-07] MEDS ORDERED: ULTANE GAS IN ONE (13:29)
[2020-11-07] MEDS ORDERED: AMIDATE INJ 40 MG VIAL ONE (13:29)
[2020-11-07] MEDS ORDERED: NS 500 ML IV 500 ML IV ONE (13:38)
[2020-11-07] MEDS ORDERED: NS IRRIGATION* 500 ML IR ONE (15:15)
[2020-11-07] MEDS: ZEMURON 100 MG VIAL 500 MG in NS 500 ML IV 450 ML IV PRN (15:49)
[2020-11-07] MEDS: DIAMOX PO SCH (17:37)
[2020-11-07] MEDS: VITAMIN D3 125 mcg (5,000 UNITS) NG SCH (17:37)
[2020-11-07] MEDS: SNACK - Diabetic Appropriate PO SCH (20:01)
[2020-11-07] MEDS: MORPHINE SULFATE INJ 2 MG INJ IVP PRN ×2 (20:10→21:58)
[2020-11-07] MEDS: ZOFRAN INJ 4 MG VIAL IVP PRN (21:30)
[2020-11-07] MEDS: NORCO 5/325 MG TAB PO PRN (23:44)
[2020-11-08] MEDS: HumuLIN R SUBCUT PRN ×3 (00:03→17:02)
[2020-11-08] MEDS: LEVAQUIN PREMIX IV 500 MG 500 MG/100 ML BAG IV SCH (02:41)
[2020-11-08 03:54] LABS: BASOPHILS % (AUTO) 0.1 % (0.2-1.0); EOSINOPHILS % (AUTO) 0.1 % (0.9-2.9); HEMATOCRIT 23.2 % (36.0-47.0); HEMOGLOBIN 7.8 g/dL (12.0-16.0); LYMPHOCYTES # (AUTO) 0.2 X10^3/uL (1.3-2.9); LYMPHOCYTES % (AUTO) 6.6 % (21.0-51.0); MEAN CORPUSCULAR HEMOGLOBIN 33.9 pg (27.0-34.0); MEAN CORPUSCULAR HGB CONC 33.5 g/dL (33.0-35.0); MEAN CORPUSCULAR VOLUME 101.2 fL (80.0-100.0); MEAN PLATELET VOLUME 9.2 fL (7.4-11.0); MONOCYTES # (AUTO) 0.2 x10^3/uL (0.3-0.8); MONOCYTES % (AUTO) 5.9 % (0.0-13.0); NEUTROPHILS # (AUTO) 2.2 x10^3/uL (2.2-4.8); NEUTROPHILS % (AUTO) 87.3 % (42.0-75.0); PLATELET COUNT 48 X10^3/uL (150.0-450.0); RED CELL DISTRIBUTION WIDTH 18.1 % (11.6-16.5); WHITE BLOOD COUNT 2.5 X10^3/uL (3.6-10.0)
[2020-11-08 04:00] LABS: ALANINE AMINOTRANSFERASE 55 Units/L (12-78); ALBUMIN 3.3 g/dL (3.4-5.0); ALKALINE PHOSPHATASE 79 Units/L (46-116); ASPARTATE AMINO TRANSFERASE 22 Units/L (15-37); BLOOD UREA NITROGEN 11 mg/dL (7-18); CALCIUM 7.8 mg/dL (8.5-10.1); CARBON DIOXIDE 32.7 mmol/L (21-32); CHLORIDE 108 mmol/L (98-107); COR CA(FOR HYPOALB) 8.4 mg/dL (8.5-10.1); COR NA(FOR HYPERGLY) 149 mmol/L (136-145); CREATININE 0.41 mg/dL (0.55-1.02); SODIUM 145 mmol/L (136-145); TOTAL PROTEIN 5.3 g/dL (6.4-8.2); eGFR NON BLACK RACES > 60 (>60)
[2020-11-08 04:08] LABS: PREALBUMIN 23.7 mg/dL (18-35.7)
[2020-11-08] MEDS: K-RIDER 10 MEQ/NS 100 ML 10 MEQ/100 ML BAG IV PRN ×2 (04:25→05:08)
[2020-11-08] MEDS: SOLU-Medrol 40 MG VIAL IVP SCH ×3 (05:07→21:44)
[2020-11-08] MEDS: DIPRIVAN PREMIX 1 GRAM IV 1,000 MG/100 ML VIAL IV PRN ×3 (05:07→20:55)
[2020-11-08 05:08] LABS: ABG BASE EXCESS 9.7 mmol/L (-2.0-2.0)
[2020-11-08 05:09] LABS: ABG HCO3 35.8 mmol/L (22-26)
[2020-11-08] MEDS: ACCUNEB 1.25 MG NEBULE NEB SCH ×3 (05:15→20:05)
[2020-11-08] MEDS: ZEMURON 100 MG VIAL 500 MG in NS 500 ML IV 450 ML IV PRN ×2 (06:41→23:14)
[2020-11-08] MEDS: PULMICORT NEB TX 0.5 MG NEB SCH ×2 (07:55→20:05)
[2020-11-08] MEDS: BROVANA IN SCH ×2 (07:55→20:05)
--- NOTE | 2020-11-08 09:03 | DR.PROGNOT ---
Hospital Progress Notes - Progress Note for Day of: Progress Note Date: 11/08/20 - Chief Complaint Chief Complaint: tracheostomy with no complications . no bleeding around the incision . platlets 48. - Past Medical Family Social History Past Med/Fam/Surg Hx: No changes since H&P Allergies: Allergies ibuprofen Adverse Reaction (Verified 10/06/20 20:57) abd pain - Review Of Systems ROS: No change since H&P - Vital Signs Vital Signs: Temperature 98.5 F Pulse Rate [Apical] 71 Pulse Rate [Left] 81 Pulse Rate 86 Respiratory Rate 30 Blood Pressure [Right Arm] 117/65 Blood Pressure [Left Arm] 147/90 Blood Pressure 100/57 O2 Sat by Pulse Oximetry 93 - Physical Exam Oriented: Unable to test Eyes: Normal Ear: Normal Nose: Normal Throat: Normal Respiratory: Generalized, Diminished Cardiovascular: Normal : Normal GI:Auscultation: Normal GI:Palpation: Normal GI: Tenderness: Normal Skin: Normal Musculoskeletal: Normal Psychiatric: Normal Mood Description: Anxious Affect: Anxious Speech Pattern: Artificially Ventilated - Laboratory and Diagnostics Result Diagrams: 11/08/20 03:40 11/08/20 03:40 Labs: 10/24/20 20:55 Sputum - Endotracheal Wash Sputum Culture - Final 10/24/20 20:55 Sputum - Endotracheal Wash - Final 10/07/20 11:51 Blood Blood Culture - Final 10/07/20 11:49 Blood Blood Culture - Final Laboratory WBC 2.5 X10^3/uL (3.6-10.0) L 11/08/20 03:40 RBC 2.30 X10^6/uL (3.5-5.4) L 11/08/20 03:40 Hgb 7.8 g/dL (12.0-16.0) L 11/08/20 03:40 Hct 23.2 % (36.0-47.0) L 11/08/20 03:40 MCV 101.2 fL (80.0-100.0) H 11/08/20 03:40 MCH 33.9 pg (27.0-34.0) 11/08/20 03:40 MCHC 33.5 g/dL (33.0-35.0) 11/08/20 03:40 RDW 18.1 % (11.6-16.5) H 11/08/20 03:40 Plt Count 48 X10^3/uL (150.0-450.0) L 11/08/20 03:40 Plt Count Comment Decreased (ADEQUATE) A 11/07/20 04:34 MPV 9.2 fL (7.4-11.0) 11/08/20 03:40 Neut % (Auto) 87.3 % (42.0-75.0) H 11/08/20 03:40 Lymph % (Auto) 6.6 % (21.0-51.0) L 11/08/20 03:40 [place] % (Auto) 5.9 % (0.0-13.0) 11/08/20 03:40 Eos % (Auto) 0.1 % (0.9-2.9) L 11/08/20 03:40 Baso % (Auto) 0.1 % (0.2-1.0) L 11/08/20 03:40 Neut # (Auto) 2.2 x10^3/uL (2.2-4.8) 11/08/20 03:40 Lymph # (Auto) 0.2 X10^3/uL (1.3-2.9) L 11/08/20 03:40 [place] # (Auto) 0.2 x10^3/uL (0.3-0.8) L 11/08/20 03:40 Eos # (Auto) 0.0 x10^3/uL (0.0-0.2) 11/08/20 03:40 Baso # (Auto) 0.0 X10^3/uL (0.0-0.1) 11/08/20 03:40 Absolute Nucleated RBC 0.7 /100WBC 11/08/20 03:40 Total Counted 100 11/07/20 04:34 Neutrophils % (Manual) 86 % (39-76) H 11/07/20 04:34 Band Neutrophils % 6 % (0-10) 11/07/20 04:34 Lymphocytes % (Manual) 4 % (13-43) L 11/07/20 04:34 Monocytes % (Manual) 3 % (4-9) L 11/07/20 04:34 Eosinophils % (Manual) 1 % (0-6) 11/07/20 04:34 Basophils % (Manual) Cancelled 11/01/20 05:10 Metamyelocytes % Cancelled 11/01/20 05:10 Myelocytes % Cancelled 11/01/20 05:10 Promyelocytes % Cancelled 11/01/20 05:10 Nucleated RBCs Cancelled 11/01/20 05:10 Atypical Lymphocytes Cancelled 11/01/20 05:10 Blast Cells Cancelled 11/01/20 05:10 Smudge Cells Cancelled 11/01/20 05:10 Toxic Granulation Cancelled 11/01/20 05:10 Dohle Bodies Cancelled 11/01/20 05:10 Gutierrez Rods Cancelled 11/01/20 05:10 Plt Clumps, EDTA Cancelled 11/01/20 05:10 Giant Platelets Cancelled 11/01/20 05:10 Plt Morphology Comment Normal (NORMAL) 11/07/20 04:34 RBC Morphology Abnormal (NORMAL) A 11/07/20 04:34 Dimorphic RBCs Cancelled 11/01/20 05:10 Polychromasia Cancelled 11/01/20 05:10 Hypochromasia Slight A 11/07/20 04:34 Poikilocytosis Cancelled 11/01/20 05:10 Basophilic Stippling Cancelled 11/01/20 05:10 Anisocytosis Slight A 11/07/20 04:34 Microcytosis Cancelled 11/01/20 05:10 Macrocytosis Slight A 11/07/20 04:34 Spherocytes Cancelled 11/01/20 05:10 Pappenheimer Bodies Cancelled 11/01/20 05:10 Sickle Cells Cancelled 11/01/20 05:10 Target Cells Cancelled 11/01/20 05:10 Tear Drop Cells Cancelled 11/01/20 05:10 Ovalocytes Cancelled 11/01/20 05:10 Stomatocytes Cancelled 11/01/20 05:10 Helmet Cells Cancelled 11/01/20 05:10 [place] Bodies Cancelled 11/01/20 05:10 [place] Rings Cancelled 11/01/20 05:10 [place] Cells Cancelled 11/01/20 05:10 Crenated Cell Cancelled 11/01/20 05:10 Acanthocytes (Spur) Cancelled 11/01/20 05:10 Rouleaux Cancelled 11/01/20 05:10 Schistocytes Cancelled 11/01/20 05:10 PT 15.7 SECONDS (11.8-14.3) 11/06/20 04:27 INR Target Range - 11/06/20 04:27 INR 1.31 (0.8-1.3) H 11/06/20 04:27 D-Dimer 1.29 ug/ml (0.0-0.57) H* 11/05/20 05:11 Sample Site Art-line 11/08/20 05:06 ABG pH 7.430 (7.35-7.45) 11/08/20 05:06 ABG pCO2 54.0 mmHg (35.0-45.0) H* 11/08/20 05:06 ABG pO2 59.0 mmHg (80.0-100.0) L 11/08/20 05:06 ABG HCO3 35.8 mmol/L (22-26) H* 11/08/20 05:06 ABG O2 Saturation 91.0 % (90-100) 11/08/20 05:06 ABG Base Excess 9.7 mmol/L (-2.0-2.0) H 11/08/20 05:06 Loyd Test Na 11/08/20 05:06 A-a Gradient 587.0 mmHg 11/08/20 05:06 FiO2 100.0 11/08/20 05:06 Blood Gas Comments Coby well-mtf 11/08/20 05:06 Sodium 145 mmol/L (136-145) 11/08/20 03:40 Corrected Sodium 149 mmol/L (136-145) H 11/08/20 03:40 Potassium 3.4 mmol/L (3.5-5.1) L 11/08/20 03:40 Chloride 108 mmol/L (98-107) H 11/08/20 03:40 Carbon Dioxide 32.7 mmol/L (21-32) H 11/08/20 03:40 BUN 11 mg/dL (7-18) 11/08/20 03:40 Creatinine 0.41 mg/dL (0.55-1.02) L 11/08/20 03:40 Est GFR (MDRD) Af Amer > 60 (>60) 11/08/20 03:40 Est GFR (MDRD) Non-Af > 60 (>60) 11/08/20 03:40 Glucose 284 mg/dL (65-99) H 11/08/20 03:40 POC Glucose (mg/dL) 216 mg/dL (65-99) H 11/08/20 08:17 Calcium 7.8 mg/dL (8.5-10.1) L 11/08/20 03:40 Corrected Calcium 8.4 mg/dL (8.5-10.1) L 11/08/20 03:40 Phosphorus 2.2 mg/dL (2.6-4.7) L 11/01/20 05:10 Magnesium 2.0 mg/dL (1.7-2.9) 11/08/20 03:40 Ferritin 531 ng/mL (8-252) H 10/12/20 05:33 Total Bilirubin 1.40 mg/dL (0.2-1.0) H 11/08/20 03:40 AST 22 Units/L (15-37) 11/08/20 03:40 ALT 55 Units/L (12-78) 11/08/20 03:40 Alkaline Phosphatase 79 Units/L (46-116) 11/08/20 03:40 Creatine Kinase 180 Units/L (26-192) 10/07/20 11:49 CK-MB (CK-2) < 1.0 ng/mL (0-4.0) 10/07/20 11:49 CK/CKMB % Calc 0.6 % (<4) 10/07/20 11:49 Troponin I < 0.02 ng/mL (0-1.5) 10/07/20 11:49 C-Reactive Protein 2.30 mg/L (0-3.0) 11/04/20 04:47 B-Natriuretic Peptide 34.1 pg/mL (0-79) 11/08/20 03:40 Total Protein 5.3 g/dL (6.4-8.2) L 11/08/20 03:40 Albumin 3.3 g/dL (3.4-5.0) L 11/08/20 03:40 Globulin 2.0 g/dL (2.5-4.5) L 11/08/20 03:40 Albumin/Globulin Ratio 1.7 Ratio (1.1-2.1) 11/08/20 03:40 Prealbumin 23.7 mg/dL (18-35.7) 09/30/21 03:40 Triglycerides 168 mg/dL (0-150) H 11/01/20 05:10 Blood Type A POSITIVE 11/01/20 11:01 - Assessment and Plan 2: post op placement of tracheostomy day 1 . same medical care . - Problem Patient Problems: Patient Problems COVID-19 (Acute) U07.1 Acute dehydration (Acute) E86.0 Insufficiency, respiratory, acute (Acute) R06.89 Bilateral interstitial pneumonia (Acute) J84.9 Other headache syndrome (Acute) G44.89 Pneumonia due to COVID-19 virus (Acute) U07.1, J12.82 Hypoxia (Acute) R09.02 ARDS (adult respiratory distress syndrome) (Acute) J80 Thrombocytopenia (Acute) D69.6
[2020-11-08] MEDS: DIFLUCAN 200 MG IV PREMIX* 200 MG/100 ML BAG IV SCH (09:17)
[2020-11-08] MEDS: PROTONIX INJ 40 MG VIAL IVP SCH (09:17)
[2020-11-08] MEDS: LACRI-LUBE S.O.P. AFFEYE SCH ×2 (09:17→21:44)
[2020-11-08] MEDS: DIAMOX PO SCH (09:17)
[2020-11-08] MEDS: VITAMIN D3 125 mcg (5,000 UNITS) NG SCH (09:18)
[2020-11-08] MEDS: NYSTATIN CREAM TOP SCH ×2 (09:18→21:45)
[2020-11-08] MEDS: THIAMINE HCL INJ IVP SCH ×2 (09:18→21:45)
[2020-11-08] MEDS: ALBUMIN HUMAN 25%- 100 ML 100 ML IV SCH (10:32)
--- NOTE | 2020-11-08 12:22 | RAD ---
HISTORYSOB, VENTILATOR DEPENDENCESTUDYCHEST x-ray, 1 VIEWCOMPARISONX-ray 11/07/2020FINDINGSTracheostomy tube is seen in the trachea. Enteric tube passes into the antrum of the stomach. Heart is normal in size. Bilateral lung infiltrates are unchanged. No pneumothorax or pleural effusion is seen.IMPRESSIONPlacement of tracheostomy tube since prior study.Electronically signed by: Cody Leong (Nov 08, 2020 08:18:14)
[2020-11-08] MEDS ORDERED: NS 500 ML IV 500 ML IV ONE (12:34)
[2020-11-08] MEDS: MILK OF MAGNESIA NG SCH ×2 (13:00→21:44)
[2020-11-08] MEDS: NS 1000 ML 1,000 ML IV SCH (13:40)
[2020-11-08] MEDS ORDERED: BENADRYL INJ 50 MG VIAL ONE (15:36)
[2020-11-08] MEDS: BENADRYL INJ 50 MG VIAL IVP ONE (15:45)
[2020-11-08] MEDS: VERSED 100 MG in NS 100 ML IV 80 ML IV PRN (16:55)
[2020-11-08] MEDS: SNACK - Diabetic Appropriate PO SCH (19:44)
[2020-11-08 22:30] LABS: HEMATOCRIT 31.9 % (36.0-47.0); HEMOGLOBIN 10.9 g/dL (12.0-16.0)
[2020-11-09] MEDS: HumuLIN R SUBCUT PRN ×2 (00:30→16:10)
[2020-11-09] MEDS: NS 1000 ML 1,000 ML IV SCH ×2 (00:30→20:21)
[2020-11-09] MEDS: LEVAQUIN PREMIX IV 500 MG 500 MG/100 ML BAG IV SCH (03:55)
[2020-11-09] MEDS: DIPRIVAN PREMIX 1 GRAM IV 1,000 MG/100 ML VIAL IV PRN ×4 (03:55→21:16)
[2020-11-09 04:33] LABS: ABG BASE EXCESS 8.7 mmol/L (-2.0-2.0)
[2020-11-09 04:34] LABS: ABG HCO3 34.1 mmol/L (22-26)
[2020-11-09] MEDS: ACCUNEB 1.25 MG NEBULE NEB SCH ×3 (05:04→20:25)
[2020-11-09 05:24] LABS: BASOPHILS % (AUTO) 0.1 % (0.2-1.0); HEMATOCRIT 30.4 % (36.0-47.0); HEMOGLOBIN 10.4 g/dL (12.0-16.0); LYMPHOCYTES # (AUTO) 0.2 X10^3/uL (1.3-2.9); LYMPHOCYTES % (AUTO) 8.7 % (21.0-51.0); MEAN CORPUSCULAR HEMOGLOBIN 32.9 pg (27.0-34.0); MEAN CORPUSCULAR HGB CONC 34.4 g/dL (33.0-35.0); MEAN CORPUSCULAR VOLUME 95.7 fL (80.0-100.0); MONOCYTES # (AUTO) 0.1 x10^3/uL (0.3-0.8); NEUTROPHILS # (AUTO) 2.3 x10^3/uL (2.2-4.8); NEUTROPHILS % (AUTO) 86.2 % (42.0-75.0); PLATELET COUNT 41 X10^3/uL (150.0-450.0); RED BLOOD COUNT 3.17 X10^6/uL (3.5-5.4); RED CELL DISTRIBUTION WIDTH 19.3 % (11.6-16.5); WHITE BLOOD COUNT 2.7 X10^3/uL (3.6-10.0)
[2020-11-09 05:37] LABS: ALANINE AMINOTRANSFERASE 57 Units/L (12-78); ALBUMIN 3.4 g/dL (3.4-5.0); ALKALINE PHOSPHATASE 89 Units/L (46-116); ASPARTATE AMINO TRANSFERASE 23 Units/L (15-37); BLOOD UREA NITROGEN 11 mg/dL (7-18); CALCIUM 8.1 mg/dL (8.5-10.1); CARBON DIOXIDE 30.1 mmol/L (21-32); CHLORIDE 105 mmol/L (98-107); COR NA(FOR HYPERGLY) 147 mmol/L (136-145); CREATININE 0.31 mg/dL (0.55-1.02); SODIUM 142 mmol/L (136-145); TOTAL PROTEIN 5.4 g/dL (6.4-8.2); eGFR NON BLACK RACES > 60 (>60)
[2020-11-09] MEDS: SOLU-Medrol 40 MG VIAL IVP SCH ×3 (06:03→21:17)
[2020-11-09] MEDS: K-RIDER 10 MEQ/NS 100 ML 10 MEQ/100 ML BAG IV PRN (06:48)
--- NOTE | 2020-11-09 07:36 | RAD ---
HISTORYSOB, VENTILATOR DEPENDENCESTUDYCHEST, 1 [id number]/30/2021.TECHNIQUEAP view of the chestFINDINGSET tube in good position. NG tube courses below the visualized field of view. Cardiac and mediastinal contours are within normal limits. No significant change in bilateral airspace and interstitial opacities. No definite pleural effusion or pneumothorax.IMPRESSIONNo significant change.Electronically signed by: Saad Sommers (Nov 09, 2020 07:34:59)
[2020-11-09] MEDS: DIFLUCAN 200 MG IV PREMIX* 200 MG/100 ML BAG IV SCH (09:03)
[2020-11-09] MEDS: MILK OF MAGNESIA NG SCH ×2 (09:03→21:17)
[2020-11-09] MEDS: ALBUMIN HUMAN 25%- 100 ML 100 ML IV SCH (09:03)
[2020-11-09] MEDS: DIAMOX PO SCH (09:03)
[2020-11-09] MEDS: LACRI-LUBE S.O.P. AFFEYE SCH ×2 (09:03→21:16)
[2020-11-09] MEDS: THIAMINE HCL INJ IVP SCH ×2 (09:04→21:17)
[2020-11-09] MEDS: PROTONIX INJ 40 MG VIAL IVP SCH (09:04)
[2020-11-09] MEDS: NYSTATIN CREAM TOP SCH ×2 (09:04→21:17)
[2020-11-09] MEDS: VITAMIN D3 125 mcg (5,000 UNITS) NG SCH (09:04)
[2020-11-09] MEDS: PULMICORT NEB TX 0.5 MG NEB SCH ×2 (09:12→20:25)
[2020-11-09] MEDS: BROVANA IN SCH ×2 (09:12→20:25)
--- NOTE | 2020-11-09 11:35 | PCM.PROG ---
Progress Note - Progress Note for Day of Date of Exam: 11/08/20 - Subjective Subjective: MS. RICHARDS WAS ADMITTED FOR TREATMENT OF COVID PNEUMONIA AND HYPOXIA. SHE REMAINS IN THE INTENSIVE CARE UNIT. SHE WAS INTUBATED ON 10/24 DUE TO RESPIRATORY FAILURE. TRACHEOSTOMY WAS INSERTED YESTERDAY. HER VENT SETTINGS THIS MORNING ARE: A/C, RATE 30, TIDAL VOLUME 400, PEEP 14, FI02 100. ON E XAMINATION, HEART IS REGULAR IN RATE AND RHYTHM. BILATERAL LUNGS ARE NOTED WITH DIMINISHED LUNG SOUNDS THROUGHOUT. ABDOMEN IS ROUND, SOFT, AND NON-TENDER WITH NORMAL BOWEL SOUNDS NOTED IN ALL QUADRANTS. HIS VITALS THIS MORNING ARE: 99.3-100-30-90%-140/79. LABS WERE OBTAINED. ABNORMAL LAB VALUES INCLUDE THE FOLLOWING: WBC 2.5, RBC 2.30, HGB 7.8, HCT 23.2, PLT COUNT 48, POTASSIUM 3.4, CHLORIDE 108, CARBON DIOXIDE 32.7, CREATININE 0.41, GLUCOSE 284, CALCIUM 7.8, TOTAL BILI 1.40, TOTAL PROTEIN 5.3, ALBUMIN 3.3, GLOBULIN 2.0. ABG REVEALED: PH 7.430, PC02 54, P02 59, HC03 35.8, 02 SAT 91, BASE EXCESS 9.7, A-A GRADIENT 587, FI02 100. CHEST XRAY WAS OBTAINED AND REVEALED: Tracheostomy tube is seen in the trachea. Enteric tube passes into the antrum of the stomach. Heart is normal in size. Bilateral lung infiltrates are unchanged. No pneumothorax or pleural effusion is seen. SHE IS CURRENTLY RECEIVING NS AT 20 ML/HR, LEVAQUIN 500MG IV DAILY, ALBUMIN 25% IV DAILY, DIFLUCAN 200MG IV DAILY, DIAMOX 250MG GT DAILY, ALBUTEROL NEBS TID, PULMICORT NEBS BID, BROVANA 15MCG BID, TUSSIONEX 5ML GT Q12H PRN, NORCO 1 TAB NG Q8H PRN, SOLU-MEDROL 40MG IV Q8H, MORPHINE 1MG Q6H PRN, ZOFRAN 4MG IV Q8H PRN, HUMULIN R SLIDING SCALE, PROTONIX 40MG IV DAILY, THIAMINE 200MG IV BID, VERSED DRIP, PROPOFOL DRIP, ROCURONIUM DRIP, AND THE POTASSIUM PROTOCOL. SHE CONTINUES TO RECEIVE ENTERAL FEEDINGS. DUE TO DROP IN HGB, WE WILL TRANSFUSE TWO UNITS OF PRBC. OTHERWISE, WE WILL FOLLOW UP WITH AM LABS, CHEST XRAY, ABG, AND CONTINUE TO MONITOR. TIME SPENT ON CLINICAL ASSESSMENT, REVIEWING LABS AND IMAGING, DECISION MAKING, AND DOCUMENTATION GREATER THAN 75 MINUTES. - Past Medical Family Social History Past Med/Fam/Surg Hx: No changes since H&P Allergies: Allergies ibuprofen Adverse Reaction (Verified 10/06/20 20:57) abd pain - Review of Systems ROS: No change since H&P - Vital Signs and I&O's Vital Signs: Temperature 98.0 F Pulse Rate [Apical] 71 Pulse Rate [Left] 81 Pulse Rate 81 Respiratory Rate 30 Blood Pressure [Right Arm] 117/65 Blood Pressure [Left Arm] 147/90 Blood Pressure 148/85 O2 Sat by Pulse Oximetry 95 Intake and Output: Intake & Output 11/06/20 11/07/20 11/08/20 11/09/20 11:59 11:59 11:59 11:59 Intake Total 3950 / 3950 3627 / 3627 3065 / 3065 3647 / 3647 Output Total 3650 / 3650 4500 / 4500 4150 / 4150 6300 / 6300 Balance 300 / 300 -873 / -873 -1085 / -1085 -2653 / -2653 - Physical Exam Oriented: Unable to test Eyes: Normal Ear: Normal Nose: Normal Throat: Normal Respiratory: Generalized, Diminished Cardiovascular: Normal : Normal Auscultation: Bowel Sounds: Normal Tenderness: Normal Skin: Normal Musculoskeletal: Normal Psychiatric: Normal Mood Description: Anxious Affect: Anxious Speech Pattern: Artificially Ventilated - Laboratory and Diagnostics Result Diagrams: 11/09/20 04:25 11/09/20 04:25 Labs: 10/24/20 20:55 Sputum - Endotracheal Wash Sputum Culture - Final 10/24/20 20:55 Sputum - Endotracheal Wash - Final 10/07/20 11:51 Blood Blood Culture - Final 10/07/20 11:49 Blood Blood Culture - Final Laboratory WBC 2.7 X10^3/uL (3.6-10.0) L 11/09/20 04:25 RBC 3.17 X10^6/uL (3.5-5.4) L 11/09/20 04:25 Hgb 10.4 g/dL (12.0-16.0) L 11/09/20 04:25 Hct 30.4 % (36.0-47.0) L 11/09/20 04:25 MCV 95.7 fL (80.0-100.0) 11/09/20 04:25 MCH 32.9 pg (27.0-34.0) 11/09/20 04:25 MCHC 34.4 g/dL (33.0-35.0) 11/09/20 04:25 RDW 19.3 % (11.6-16.5) H 11/09/20 04:25 Plt Count 41 X10^3/uL (150.0-450.0) L 11/09/20 04:25 Plt Count Comment Decreased (ADEQUATE) A 11/07/20 04:34 MPV 9.0 fL (7.4-11.0) 11/09/20 04:25 Neut % (Auto) 86.2 % (42.0-75.0) H 11/09/20 04:25 Lymph % (Auto) 8.7 % (21.0-51.0) L 11/09/20 04:25 [place] % (Auto) 5.0 % (0.0-13.0) 11/09/20 04:25 Eos % (Auto) 0.0 % (0.9-2.9) L 11/09/20 04:25 Baso % (Auto) 0.1 % (0.2-1.0) L 11/09/20 04:25 Neut # (Auto) 2.3 x10^3/uL (2.2-4.8) 11/09/20 04:25 Lymph # (Auto) 0.2 X10^3/uL (1.3-2.9) L 11/09/20 04:25 [place] # (Auto) 0.1 x10^3/uL (0.3-0.8) L 11/09/20 04:25 Eos # (Auto) 0.0 x10^3/uL (0.0-0.2) 11/09/20 04:25 Baso # (Auto) 0.0 X10^3/uL (0.0-0.1) 11/09/20 04:25 Absolute Nucleated RBC 1.1 /100WBC 11/09/20 04:25 Total Counted 100 09/29/21 04:34 Neutrophils % (Manual) 86 % (39-76) H 11/07/20 04:34 Band Neutrophils % 6 % (0-10) 11/07/20 04:34 Lymphocytes % (Manual) 4 % (13-43) L 11/07/20 04:34 Monocytes % (Manual) 3 % (4-9) L 11/07/20 04:34 Eosinophils % (Manual) 1 % (0-6) 11/07/20 04:34 Basophils % (Manual) Cancelled 11/01/20 05:10 Metamyelocytes % Cancelled 11/01/20 05:10 Myelocytes % Cancelled 11/01/20 05:10 Promyelocytes % Cancelled 11/01/20 05:10 Nucleated RBCs Cancelled 11/01/20 05:10 Atypical Lymphocytes Cancelled 11/01/20 05:10 Blast Cells Cancelled 11/01/20 05:10 Smudge Cells Cancelled 11/01/20 05:10 Toxic Granulation Cancelled 11/01/20 05:10 Dohle Bodies Cancelled 11/01/20 05:10 Gutierrez Rods Cancelled 11/01/20 05:10 Plt Clumps, EDTA Cancelled 11/01/20 05:10 Giant Platelets Cancelled 11/01/20 05:10 Plt Morphology Comment Normal (NORMAL) 11/07/20 04:34 RBC Morphology Abnormal (NORMAL) A 11/07/20 04:34 Dimorphic RBCs Cancelled 11/01/20 05:10 Polychromasia Cancelled 11/01/20 05:10 Hypochromasia Slight A 11/07/20 04:34 Poikilocytosis Cancelled 11/01/20 05:10 Basophilic Stippling Cancelled 11/01/20 05:10 Anisocytosis Slight A 11/07/20 04:34 Microcytosis Cancelled 11/01/20 05:10 Macrocytosis Slight A 11/07/20 04:34 Spherocytes Cancelled 11/01/20 05:10 Pappenheimer Bodies Cancelled 11/01/20 05:10 Sickle Cells Cancelled 11/01/20 05:10 Target Cells Cancelled 11/01/20 05:10 Tear Drop Cells Cancelled 11/01/20 05:10 Ovalocytes Cancelled 11/01/20 05:10 Stomatocytes Cancelled 11/01/20 05:10 Helmet Cells Cancelled 11/01/20 05:10 [place] Bodies Cancelled 11/01/20 05:10 [place] Rings Cancelled 11/01/20 05:10 [place] Cells Cancelled 11/01/20 05:10 Crenated Cell Cancelled 11/01/20 05:10 Acanthocytes (Spur) Cancelled 11/01/20 05:10 Rouleaux Cancelled 11/01/20 05:10 Schistocytes Cancelled 11/01/20 05:10 PT 15.7 SECONDS (11.8-14.3) 11/06/20 04:27 INR Target Range - 11/06/20 04:27 INR 1.31 (0.8-1.3) H 11/06/20 04:27 D-Dimer 1.29 ug/ml (0.0-0.57) H* 11/05/20 05:11 Sample Site [place] 11/09/20 04:25 ABG pH 7.450 (7.35-7.45) 11/09/20 04:25 ABG pCO2 49.0 mmHg (35.0-45.0) H 11/09/20 04:25 ABG pO2 79.0 mmHg (80.0-100.0) L 11/09/20 04:25 ABG HCO3 34.1 mmol/L (22-26) H* 11/09/20 04:25 ABG O2 Saturation 96.0 % (90-100) 11/09/20 04:25 ABG Base Excess 8.7 mmol/L (-2.0-2.0) H 11/09/20 04:25 Loyd Test N/a 11/09/20 04:25 A-a Gradient 573.0 mmHg 11/09/20 04:25 FiO2 100.0 11/09/20 04:25 Blood Gas Comments Coby well 11/09/20 04:25 Sodium 142 mmol/L (136-145) 11/09/20 04:25 Corrected Sodium 147 mmol/L (136-145) H 11/09/20 04:25 Potassium 3.4 mmol/L (3.5-5.1) L 11/09/20 04:25 Chloride 105 mmol/L (98-107) 11/09/20 04:25 Carbon Dioxide 30.1 mmol/L (21-32) 11/09/20 04:25 BUN 11 mg/dL (7-18) 11/09/20 04:25 Creatinine 0.31 mg/dL (0.55-1.02) L 11/09/20 04:25 Est GFR (MDRD) Af Amer > 60 (>60) 11/09/20 04:25 Est GFR (MDRD) Non-Af > 60 (>60) 11/09/20 04:25 Glucose 290 mg/dL (65-99) H 11/09/20 04:25 POC Glucose (mg/dL) 312 mg/dL (65-99) H 11/09/20 00:18 Calcium 8.1 mg/dL (8.5-10.1) L 11/09/20 04:25 Corrected Calcium TNP 11/09/20 04:25 Phosphorus 2.2 mg/dL (2.6-4.7) L 11/01/20 05:10 Magnesium 2.0 mg/dL (1.7-2.9) 11/08/20 03:40 Ferritin 531 ng/mL (8-252) H 10/12/20 05:33 Total Bilirubin 1.70 mg/dL (0.2-1.0) H 11/09/20 04:25 AST 23 Units/L (15-37) 11/09/20 04:25 ALT 57 Units/L (12-78) 11/09/20 04:25 Alkaline Phosphatase 89 Units/L (46-116) 11/09/20 04:25 Creatine Kinase 180 Units/L (26-192) 10/07/20 11:49 CK-MB (CK-2) < 1.0 ng/mL (0-4.0) 10/07/20 11:49 CK/CKMB % Calc 0.6 % (<4) 10/07/20 11:49 Troponin I < 0.02 ng/mL (0-1.5) 10/07/20 11:49 C-Reactive Protein 2.30 mg/L (0-3.0) 11/04/20 04:47 B-Natriuretic Peptide 19.1 pg/mL (0-79) 11/09/20 04:25 Total Protein 5.4 g/dL (6.4-8.2) L 11/09/20 04:25 Albumin 3.4 g/dL (3.4-5.0) 11/09/20 04:25 Globulin 2.0 g/dL (2.5-4.5) L 11/09/20 04:25 Albumin/Globulin Ratio 1.7 Ratio (1.1-2.1) 11/09/20 04:25 Prealbumin 23.7 mg/dL (18-35.7) 11/08/20 03:40 Triglycerides 168 mg/dL (0-150) H 11/01/20 05:10 Blood Type A POSITIVE 11/08/20 10:20 Antibody Screen Negative 11/08/20 10:20 Crossmatch See Detail 11/08/20 10:20 - Plan (1) Pneumonia due to COVID-19 virus Status: Acute Plan: MECHANICAL VENT, IV FLUIDS, DIAMOX 250MG PO DAILY, POTASSIUM AND MAGNESIUM REPLACEMENT, IV ANTIBIOTICS, IV STEROIDS, IV DIFLUCAN, NEBULIZER TREATMENTS, RESPIRATORY THERAPY, VERSED FOR SEDATION, ENTERAL NUTRITION, GLUCOSE MONITORING WITH SLIDING SCALE COVERAGE. (2) ARDS (adult respiratory distress syndrome) Status: Acute (3) Hypoxia Status: Acute (4) Thrombocytopenia Status: Acute (5) Anemia Status: Acute Qualifiers: Anemia type: iron deficiency Iron deficiency anemia type: chronic blood loss Qualified Code(s): D50.0 - Iron deficiency anemia secondary to blood loss (chronic) Plan: TRANSFUSE 2 UNITS PRBC
--- NOTE | 2020-11-09 11:53 | PCM.PROG ---
Progress Note - Progress Note for Day of Date of Exam: 11/09/20 - Subjective Subjective: MS. RICHARDS WAS ADMITTED FOR TREATMENT OF COVID PNEUMONIA AND HYPOXIA. HX OBESITY, OTHERWISE, NO SIGNIFICANT PMH. SHE REMAINS IN THE INTENSIVE CARE UNIT. SHE WAS INTUBATED ON 10/24 DUE TO RESPIRATORY FAILURE. TRACHEOSTOMY WAS INSERTED ON 11/07. SHE RECEIVED TWO UNITS OF PRBC YESTERDAY. HER VENT SETTINGS THIS MORNING ARE: A/C, RATE 30, TIDAL VOLUME 400, PEEP 14, FI02 100. SATURATIONS HAVE BEEN 86-94% THROUGHOUT THE NIGHT. ON EXAMINATION, HEART IS REGULAR IN RATE AND RHYTHM. BILATERAL LUNGS ARE NOTED WITH DIMINISHED LUNG SOUNDS THROUGHOUT. ABDOMEN IS ROUND, SOFT, AND NON-TENDER WITH NORMAL BOWEL SOUNDS NOTED IN ALL QUADRANTS. HER VITALS THIS MORNING ARE: 98.0-81-30-100%-148/85. LABS WERE OBTAINED. ABNORMAL LAB VALUES INCLUDE THE FOLLOWING: WBC 2.7, RBC 3.17, HGB 10.4, HCT 30.4, PLT COUNT 41, POTASSIUM 3.4, CREATININE 0.31, GLUCOSE 290, CALCIUM 8.1, TOTAL BILI 1.70, TOTAL PROTEIN 5.4, GLOBULIN 2.0. ABG REVEALED: PH 7.430, PC02 54, P02 59, HC03 35.8, 02 SAT 91, BASE EXCESS 9.7, A-A GRADIENT 587, FI02 100. CHEST XRAY WAS OBTAINED AND REVEALED: UNCHANGED PNEUMONIA. SHE IS CURRENTLY RECEIVING NS AT 20 ML/HR, LEVAQUIN 500MG IV DAILY, ALBUMIN 25% IV DAILY, DIFLUCAN 200MG IV DAILY, DIAMOX 250MG GT DAILY, ALBUTEROL NEBS TID, PULMICORT NEBS BID, BROVANA 15MCG BID, TUSSIONEX 5ML GT Q12H PRN, NORCO 1 TAB NG Q8H PRN, SOLU-MEDROL 40MG IV Q8H, MORPHINE 1MG Q6H PRN, ZOFRAN 4MG IV Q8H PRN, HUMULIN R SLIDING SCALE, PROTONIX 40MG IV DAILY, THIAMINE 200MG IV BID, VERSED DRIP, PROPOFOL DRIP, ROCURONIUM DRIP, AND THE POTASSIUM PROTOCOL. SHE CONTINUES TO RECEIVE ENTERAL FEEDINGS. OTHERWISE, WE WILL FOLLOW UP WITH AM LABS, CHEST XRAY, ABG, AND CONTINUE TO MONITOR. TIME SPENT ON CLINICAL ASSESSMENT, REVIEWING LABS AND IMAGING, DECISION MAKING, AND DOCUMENTATION GREATER THAN 75 MINUTES. - Past Medical Family Social History Past Med/Fam/Surg Hx: No changes since H&P Allergies: Allergies ibuprofen Adverse Reaction (Verified 10/06/20 20:57) abd pain - Review of Systems ROS: No change since H&P - Vital Signs and I&O's Vital Signs: Temperature 98.0 F Pulse Rate [Apical] 71 Pulse Rate [Left] 81 Pulse Rate 81 Respiratory Rate 30 Blood Pressure [Right Arm] 117/65 Blood Pressure [Left Arm] 147/90 Blood Pressure 148/85 O2 Sat by Pulse Oximetry 95 Intake and Output: Intake & Output 11/06/20 11/07/20 11/08/20 11/09/20 11:59 11:59 11:59 11:59 Intake Total 3950 / 3950 3627 / 3627 3065 / 3065 3647 / 3647 Output Total 3650 / 3650 4500 / 4500 4150 / 4150 6300 / 6300 Balance 300 / 300 -873 / -873 -1085 / -1085 -2653 / -2653 - Physical Exam Oriented: Unable to test Eyes: Normal Ear: Normal Nose: Normal Throat: Normal Respiratory: Generalized, Diminished Cardiovascular: Normal : Normal Auscultation: Bowel Sounds: Normal Tenderness: Normal Skin: Normal Musculoskeletal: Normal Psychiatric: Normal Mood Description: Anxious Affect: Anxious Speech Pattern: Artificially Ventilated - Laboratory and Diagnostics Result Diagrams: 11/09/20 04:25 11/09/20 04:25 Labs: 10/24/20 20:55 Sputum - Endotracheal Wash Sputum Culture - Final 10/24/20 20:55 Sputum - Endotracheal Wash - Final 10/07/20 11:51 Blood Blood Culture - Final 10/07/20 11:49 Blood Blood Culture - Final Laboratory WBC 2.7 X10^3/uL (3.6-10.0) L 11/09/20 04:25 RBC 3.17 X10^6/uL (3.5-5.4) L 11/09/20 04:25 Hgb 10.4 g/dL (12.0-16.0) L 11/09/20 04:25 Hct 30.4 % (36.0-47.0) L 11/09/20 04:25 MCV 95.7 fL (80.0-100.0) 11/09/20 04:25 MCH 32.9 pg (27.0-34.0) 11/09/20 04:25 MCHC 34.4 g/dL (33.0-35.0) 11/09/20 04:25 RDW 19.3 % (11.6-16.5) H 11/09/20 04:25 Plt Count 41 X10^3/uL (150.0-450.0) L 11/09/20 04:25 Plt Count Comment Decreased (ADEQUATE) A 11/07/20 04:34 MPV 9.0 fL (7.4-11.0) 11/09/20 04:25 Neut % (Auto) 86.2 % (42.0-75.0) H 11/09/20 04:25 Lymph % (Auto) 8.7 % (21.0-51.0) L 11/09/20 04:25 [place] % (Auto) 5.0 % (0.0-13.0) 11/09/20 04:25 Eos % (Auto) 0.0 % (0.9-2.9) L 11/09/20 04:25 Baso % (Auto) 0.1 % (0.2-1.0) L 11/09/20 04:25 Neut # (Auto) 2.3 x10^3/uL (2.2-4.8) 11/09/20 04:25 Lymph # (Auto) 0.2 X10^3/uL (1.3-2.9) L 11/09/20 04:25 [place] # (Auto) 0.1 x10^3/uL (0.3-0.8) L 11/09/20 04:25 Eos # (Auto) 0.0 x10^3/uL (0.0-0.2) 11/09/20 04:25 Baso # (Auto) 0.0 X10^3/uL (0.0-0.1) 11/09/20 04:25 Absolute Nucleated RBC 1.1 /100WBC 11/09/20 04:25 Total Counted 100 11/07/20 04:34 Neutrophils % (Manual) 86 % (39-76) H 11/07/20 04:34 Band Neutrophils % 6 % (0-10) 11/07/20 04:34 Lymphocytes % (Manual) 4 % (13-43) L 11/07/20 04:34 Monocytes % (Manual) 3 % (4-9) L 11/07/20 04:34 Eosinophils % (Manual) 1 % (0-6) 11/07/20 04:34 Basophils % (Manual) Cancelled 11/01/20 05:10 Metamyelocytes % Cancelled 11/01/20 05:10 Myelocytes % Cancelled 11/01/20 05:10 Promyelocytes % Cancelled 11/01/20 05:10 Nucleated RBCs Cancelled 11/01/20 05:10 Atypical Lymphocytes Cancelled 11/01/20 05:10 Blast Cells Cancelled 11/01/20 05:10 Smudge Cells Cancelled 11/01/20 05:10 Toxic Granulation Cancelled 11/01/20 05:10 Dohle Bodies Cancelled 11/01/20 05:10 Gutierrez Rods Cancelled 11/01/20 05:10 Plt Clumps, EDTA Cancelled 11/01/20 05:10 Giant Platelets Cancelled 11/01/20 05:10 Plt Morphology Comment Normal (NORMAL) 11/07/20 04:34 RBC Morphology Abnormal (NORMAL) A 11/07/20 04:34 Dimorphic RBCs Cancelled 11/01/20 05:10 Polychromasia Cancelled 11/01/20 05:10 Hypochromasia Slight A 11/07/20 04:34 Poikilocytosis Cancelled 11/01/20 05:10 Basophilic Stippling Cancelled 11/01/20 05:10 Anisocytosis Slight A 11/07/20 04:34 Microcytosis Cancelled 11/01/20 05:10 Macrocytosis Slight A 11/07/20 04:34 Spherocytes Cancelled 11/01/20 05:10 Pappenheimer Bodies Cancelled 11/01/20 05:10 Sickle Cells Cancelled 11/01/20 05:10 Target Cells Cancelled 11/01/20 05:10 Tear Drop Cells Cancelled 11/01/20 05:10 Ovalocytes Cancelled 11/01/20 05:10 Stomatocytes Cancelled 11/01/20 05:10 Helmet Cells Cancelled 11/01/20 05:10 Florian-Polo Bodies Cancelled 11/01/20 05:10 [place] Rings Cancelled 11/01/20 05:10 Viry Cells Cancelled 11/01/20 05:10 Crenated Cell Cancelled 11/01/20 05:10 Acanthocytes (Spur) Cancelled 11/01/20 05:10 Rouleaux Cancelled 11/01/20 05:10 Schistocytes Cancelled 11/01/20 05:10 PT 15.7 SECONDS (11.8-14.3) 11/06/20 04:27 INR Target Range - 11/06/20 04:27 INR 1.31 (0.8-1.3) H 11/06/20 04:27 D-Dimer 1.29 ug/ml (0.0-0.57) H* 11/05/20 05:11 Sample Site Elin 11/09/20 04:25 ABG pH 7.450 (7.35-7.45) 11/09/20 04:25 ABG pCO2 49.0 mmHg (35.0-45.0) H 11/09/20 04:25 ABG pO2 79.0 mmHg (80.0-100.0) L 11/09/20 04:25 ABG HCO3 34.1 mmol/L (22-26) H* 11/09/20 04:25 ABG O2 Saturation 96.0 % (90-100) 11/09/20 04:25 ABG Base Excess 8.7 mmol/L (-2.0-2.0) H 11/09/20 04:25 Loyd Test N/a 11/09/20 04:25 A-a Gradient 573.0 mmHg 11/09/20 04:25 FiO2 100.0 11/09/20 04:25 Blood Gas Comments Coby well 11/09/20 04:25 Sodium 142 mmol/L (136-145) 11/09/20 04:25 Corrected Sodium 147 mmol/L (136-145) H 11/09/20 04:25 Potassium 3.4 mmol/L (3.5-5.1) L 11/09/20 04:25 Chloride 105 mmol/L (98-107) 11/09/20 04:25 Carbon Dioxide 30.1 mmol/L (21-32) 11/09/20 04:25 BUN 11 mg/dL (7-18) 11/09/20 04:25 Creatinine 0.31 mg/dL (0.55-1.02) L 11/09/20 04:25 Est GFR (MDRD) Af Amer > 60 (>60) 11/09/20 04:25 Est GFR (MDRD) Non-Af > 60 (>60) 11/09/20 04:25 Glucose 290 mg/dL (65-99) H 11/09/20 04:25 POC Glucose (mg/dL) 312 mg/dL (65-99) H 11/09/20 00:18 Calcium 8.1 mg/dL (8.5-10.1) L 11/09/20 04:25 Corrected Calcium TNP 11/09/20 04:25 Phosphorus 2.2 mg/dL (2.6-4.7) L 11/01/20 05:10 Magnesium 2.0 mg/dL (1.7-2.9) 11/08/20 03:40 Ferritin 531 ng/mL (8-252) H 10/12/20 05:33 Total Bilirubin 1.70 mg/dL (0.2-1.0) H 11/09/20 04:25 AST 23 Units/L (15-37) 11/09/20 04:25 ALT 57 Units/L (12-78) 11/09/20 04:25 Alkaline Phosphatase 89 Units/L (46-116) 11/09/20 04:25 Creatine Kinase 180 Units/L (26-192) 10/07/20 11:49 CK-MB (CK-2) < 1.0 ng/mL (0-4.0) 10/07/20 11:49 CK/CKMB % Calc 0.6 % (<4) 10/07/20 11:49 Troponin I < 0.02 ng/mL (0-1.5) 10/07/20 11:49 C-Reactive Protein 2.30 mg/L (0-3.0) 11/04/20 04:47 B-Natriuretic Peptide 19.1 pg/mL (0-79) 11/09/20 04:25 Total Protein 5.4 g/dL (6.4-8.2) L 11/09/20 04:25 Albumin 3.4 g/dL (3.4-5.0) 11/09/20 04:25 Globulin 2.0 g/dL (2.5-4.5) L 11/09/20 04:25 Albumin/Globulin Ratio 1.7 Ratio (1.1-2.1) 11/09/20 04:25 Prealbumin 23.7 mg/dL (18-35.7) 11/08/20 03:40 Triglycerides 168 mg/dL (0-150) H 11/01/20 05:10 Blood Type A POSITIVE 11/08/20 10:20 Antibody Screen Negative 11/08/20 10:20 Crossmatch See Detail 11/08/20 10:20 - Plan (1) Pneumonia due to COVID-19 virus Status: Acute Plan: MECHANICAL VENT, IV FLUIDS, DIAMOX 250MG PO DAILY, POTASSIUM AND MAGNESIUM REPLACEMENT, IV ANTIBIOTICS, IV STEROIDS, IV DIFLUCAN, NEBULIZER TREATMENTS, RESPIRATORY THERAPY, VERSED FOR SEDATION, ENTERAL NUTRITION, GLUCOSE MONITORING WITH SLIDING SCALE COVERAGE. 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
[2020-11-09] MEDS: VERSED 100 MG in NS 100 ML IV 80 ML IV PRN (14:34)
[2020-11-09] MEDS: ZEMURON 100 MG VIAL 500 MG in NS 500 ML IV 450 ML IV PRN (14:50)
[2020-11-09] MEDS: SNACK - Diabetic Appropriate PO SCH (20:21)
[2020-11-10] MEDS: DIPRIVAN PREMIX 1 GRAM IV 1,000 MG/100 ML VIAL IV PRN ×4 (02:32→21:13)
[2020-11-10] MEDS: HumuLIN R SUBCUT PRN ×2 (02:33→17:04)
[2020-11-10] MEDS: ZEMURON 100 MG VIAL 500 MG in NS 500 ML IV 450 ML IV PRN ×3 (02:34→23:58)
[2020-11-10 04:26] LABS: ABG BASE EXCESS 8.3 mmol/L (-2.0-2.0)
[2020-11-10 04:27] LABS: ABG HCO3 35.1 mmol/L (22-26)
[2020-11-10] MEDS: ACCUNEB 1.25 MG NEBULE NEB SCH ×3 (05:01→20:30)
[2020-11-10 05:15] LABS: BASOPHILS % (AUTO) 0.1 % (0.2-1.0); HEMATOCRIT 32.9 % (36.0-47.0); HEMOGLOBIN 11.4 g/dL (12.0-16.0); LYMPHOCYTES # (AUTO) 0.2 X10^3/uL (1.3-2.9); LYMPHOCYTES % (AUTO) 7.2 % (21.0-51.0); MEAN CORPUSCULAR HEMOGLOBIN 33.5 pg (27.0-34.0); MEAN CORPUSCULAR HGB CONC 34.7 g/dL (33.0-35.0); MEAN CORPUSCULAR VOLUME 96.4 fL (80.0-100.0); MEAN PLATELET VOLUME 9.5 fL (7.4-11.0); MONOCYTES # (AUTO) 0.2 x10^3/uL (0.3-0.8); MONOCYTES % (AUTO) 5.3 % (0.0-13.0); NEUTROPHILS # (AUTO) 2.8 x10^3/uL (2.2-4.8); NEUTROPHILS % (AUTO) 87.4 % (42.0-75.0); PLATELET COUNT 52 X10^3/uL (150.0-450.0); RED BLOOD COUNT 3.41 X10^6/uL (3.5-5.4); RED CELL DISTRIBUTION WIDTH 18.9 % (11.6-16.5); WHITE BLOOD COUNT 3.2 X10^3/uL (3.6-10.0)
[2020-11-10 05:22] LABS: ALANINE AMINOTRANSFERASE 60 Units/L (12-78); ALBUMIN 3.6 g/dL (3.4-5.0); ALKALINE PHOSPHATASE 100 Units/L (46-116); ASPARTATE AMINO TRANSFERASE 21 Units/L (15-37); BLOOD UREA NITROGEN 10 mg/dL (7-18); CALCIUM 8.1 mg/dL (8.5-10.1); CHLORIDE 106 mmol/L (98-107); COR NA(FOR HYPERGLY) 149 mmol/L (136-145); CREATININE 0.43 mg/dL (0.55-1.02); SODIUM 144 mmol/L (136-145); TOTAL PROTEIN 5.7 g/dL (6.4-8.2); eGFR NON BLACK RACES > 60 (>60)
[2020-11-10] MEDS: SOLU-Medrol 40 MG VIAL IVP SCH ×3 (06:35→21:12)
[2020-11-10] MEDS: NS 1000 ML 1,000 ML IV SCH ×2 (06:35→15:59)
[2020-11-10] MEDS: BROVANA IN SCH ×2 (09:00→20:30)
[2020-11-10] MEDS: PULMICORT NEB TX 0.5 MG NEB SCH ×2 (09:00→20:30)
[2020-11-10] MEDS: VITAMIN D3 125 mcg (5,000 UNITS) NG SCH (09:14)
[2020-11-10] MEDS: DIFLUCAN 200 MG IV PREMIX* 200 MG/100 ML BAG IV SCH (09:15)
[2020-11-10] MEDS: NYSTATIN CREAM TOP SCH ×2 (09:15→21:11)
[2020-11-10] MEDS: MILK OF MAGNESIA NG SCH ×2 (09:15→21:12)
[2020-11-10] MEDS: LACRI-LUBE S.O.P. AFFEYE SCH ×2 (09:15→21:12)
[2020-11-10] MEDS: THIAMINE HCL INJ IVP SCH ×2 (09:15→21:13)
[2020-11-10] MEDS: PROTONIX INJ 40 MG VIAL IVP SCH (09:15)
[2020-11-10] MEDS: DIAMOX PO SCH (09:16)
[2020-11-10] MEDS: ALBUMIN HUMAN 25%- 100 ML 100 ML IV SCH (09:16)
[2020-11-10] MEDS: VERSED 100 MG in NS 100 ML IV 80 ML IV PRN (09:17)
--- NOTE | 2020-11-10 10:13 | RAD ---
HISTORYCOVID-19 pneumoniaSTUDYPortable AP chestCOMPARISONOctober 2020FINDINGSThere is no change in appearance of heart, lungs or stable support lines. Persistent bilateral pulmonary infiltrates with no additional consolidation, no complicating pneumothorax or large pleural effusion.IMPRESSIONNo change in appearance of bilateral pneumonia.Electronically signed by: ROSA HSU (Nov 10, 2020 10:11:35)
[2020-11-10] MEDS: SNACK - Diabetic Appropriate PO SCH (19:16)
[2020-11-11] MEDS: HumuLIN R SUBCUT PRN ×3 (00:02→16:56)
[2020-11-11] MEDS: DIPRIVAN PREMIX 1 GRAM IV 1,000 MG/100 ML VIAL IV PRN ×4 (03:12→19:49)
[2020-11-11] MEDS: NS 1000 ML 1,000 ML IV SCH ×2 (04:05→18:28)
[2020-11-11 04:20] LABS: ABG BASE EXCESS 8.4 mmol/L (-2.0-2.0)
[2020-11-11 04:22] LABS: ABG HCO3 34.4 mmol/L (22-26)
[2020-11-11] MEDS: ACCUNEB 1.25 MG NEBULE NEB SCH ×3 (05:05→20:30)
[2020-11-11 05:17] LABS: BASOPHILS % (AUTO) 0.5 % (0.2-1.0); HEMATOCRIT 35.4 % (36.0-47.0); HEMOGLOBIN 12.2 g/dL (12.0-16.0); LYMPHOCYTES # (AUTO) 0.4 X10^3/uL (1.3-2.9); LYMPHOCYTES % (AUTO) 9.7 % (21.0-51.0); MEAN CORPUSCULAR HEMOGLOBIN 32.9 pg (27.0-34.0); MEAN CORPUSCULAR HGB CONC 34.3 g/dL (33.0-35.0); MEAN PLATELET VOLUME 8.8 fL (7.4-11.0); MONOCYTES # (AUTO) 0.2 x10^3/uL (0.3-0.8); NEUTROPHILS # (AUTO) 3.4 x10^3/uL (2.2-4.8); NEUTROPHILS % (AUTO) 83.8 % (42.0-75.0); PLATELET COUNT 65 X10^3/uL (150.0-450.0); RED BLOOD COUNT 3.69 X10^6/uL (3.5-5.4); RED CELL DISTRIBUTION WIDTH 18.7 % (11.6-16.5)
[2020-11-11 05:31] LABS: ALANINE AMINOTRANSFERASE 54 Units/L (12-78); ALKALINE PHOSPHATASE 96 Units/L (46-116); ASPARTATE AMINO TRANSFERASE 18 Units/L (15-37); BLOOD UREA NITROGEN 10 mg/dL (7-18); CALCIUM 8.5 mg/dL (8.5-10.1); CARBON DIOXIDE 31.3 mmol/L (21-32); CHLORIDE 107 mmol/L (98-107); COR NA(FOR HYPERGLY) 148 mmol/L (136-145); CREATININE 0.31 mg/dL (0.55-1.02); SODIUM 144 mmol/L (136-145); TOTAL PROTEIN 6.2 g/dL (6.4-8.2); eGFR NON BLACK RACES > 60 (>60)
[2020-11-11] MEDS: POTASSIUM CHLORIDE LIQ 20 MEQ UDC PO PRN (06:14)
[2020-11-11] MEDS: SOLU-Medrol 40 MG VIAL IVP SCH ×3 (06:14→21:01)
[2020-11-11] MEDS: VERSED 100 MG in NS 100 ML IV 80 ML IV PRN (07:58)
[2020-11-11] MEDS: PULMICORT NEB TX 0.5 MG NEB SCH ×2 (09:00→20:30)
[2020-11-11] MEDS: BROVANA IN SCH ×2 (09:00→20:30)
[2020-11-11] MEDS: ZEMURON 100 MG VIAL 500 MG in NS 500 ML IV 450 ML IV PRN ×2 (10:07→19:48)
[2020-11-11] MEDS: DIFLUCAN 200 MG IV PREMIX* 200 MG/100 ML BAG IV SCH (10:08)
[2020-11-11] MEDS: DIAMOX PO SCH (10:08)
[2020-11-11] MEDS: LACRI-LUBE S.O.P. AFFEYE SCH ×2 (10:08→21:01)
[2020-11-11] MEDS: ALBUMIN HUMAN 25%- 100 ML 100 ML IV SCH (10:08)
[2020-11-11] MEDS: NYSTATIN CREAM TOP SCH ×2 (10:09→21:01)
[2020-11-11] MEDS: VITAMIN D3 125 mcg (5,000 UNITS) NG SCH (10:09)
[2020-11-11] MEDS: MILK OF MAGNESIA NG SCH ×2 (10:09→20:45)
[2020-11-11] MEDS: PROTONIX INJ 40 MG VIAL IVP SCH (10:09)
[2020-11-11] MEDS: THIAMINE HCL INJ IVP SCH ×2 (10:09→20:52)
[2020-11-11 14:20] LABS: BILIRUBIN,URINE NEGATIVE (NEGATIVE); BLOOD/HEMOGLOBIN,URINE 5+ (NEGATIVE); GLUCOSE, URINE NEGATIVE (NEGATIVE); KETONES,URINE NEGATIVE (NEGATIVE); LEUKOCYTE ESTERASE ,URINE 1+ (NEGATIVE); NITRITES,URINE NEGATIVE (NEGATIVE); PROTEIN,URINE 2+ (NEGATIVE); UROBILINOGEN,URINE NORMAL (NORMAL)
[2020-11-11 14:34] LABS: APPEARANCE,URINE HAZY (CLEAR); COLOR,URINE YELLOW (YELLOW)
[2020-11-11 14:35] LABS: RBC,URINE TNTC /HPF (0-3); SQUAMOUS EPITHELIAL CELL,UR NEGATIVE /HPF (NEGATIVE)
[2020-11-11 14:36] LABS: BACTERIA,URINE 1+ /HPF (NEGATIVE); RENAL EPITHELIAL CELLS,URINE RARE /HPF (NEGATIVE)
[2020-11-11 14:39] LABS: YEAST,URINE MANY /HPF (NEGATIVE)
[2020-11-11] MEDS: SNACK - Diabetic Appropriate PO SCH (19:47)
[2020-11-11] MEDS ORDERED: NS 500 ML IV 500 ML IV ONE (22:23)
[2020-11-12] MEDS: DIPRIVAN PREMIX 1 GRAM IV 1,000 MG/100 ML VIAL IV PRN ×6 (00:40→21:19)
[2020-11-12] MEDS: HumuLIN R SUBCUT PRN ×3 (01:00→23:48)
[2020-11-12 04:43] LABS: ABG BASE EXCESS 9.8 mmol/L (-2.0-2.0)
[2020-11-12 04:46] LABS: ABG HCO3 35.4 mmol/L (22-26)
[2020-11-12] MEDS: ZEMURON 100 MG VIAL 500 MG in NS 500 ML IV 450 ML IV PRN ×3 (04:56→23:30)
[2020-11-12 05:18] LABS: BASOPHILS % (AUTO) 0.1 % (0.2-1.0); HEMOGLOBIN 11.3 g/dL (12.0-16.0); LYMPHOCYTES # (AUTO) 0.4 X10^3/uL (1.3-2.9); LYMPHOCYTES % (AUTO) 11.4 % (21.0-51.0); MEAN CORPUSCULAR HEMOGLOBIN 33.1 pg (27.0-34.0); MEAN CORPUSCULAR HGB CONC 34.1 g/dL (33.0-35.0); MEAN CORPUSCULAR VOLUME 97.1 fL (80.0-100.0); MEAN PLATELET VOLUME 9.3 fL (7.4-11.0); MONOCYTES # (AUTO) 0.2 x10^3/uL (0.3-0.8); MONOCYTES % (AUTO) 5.1 % (0.0-13.0); NEUTROPHILS # (AUTO) 3.2 x10^3/uL (2.2-4.8); NEUTROPHILS % (AUTO) 83.4 % (42.0-75.0); PLATELET COUNT 79 X10^3/uL (150.0-450.0); RED CELL DISTRIBUTION WIDTH 18.9 % (11.6-16.5); WHITE BLOOD COUNT 3.8 X10^3/uL (3.6-10.0)
[2020-11-12] MEDS: SOLU-Medrol 40 MG VIAL IVP SCH ×3 (05:20→21:00)
[2020-11-12] MEDS: ACCUNEB 1.25 MG NEBULE NEB SCH ×3 (05:35→20:00)
[2020-11-12 05:51] LABS: ALANINE AMINOTRANSFERASE 48 Units/L (12-78); ALBUMIN 3.5 g/dL (3.4-5.0); ALKALINE PHOSPHATASE 85 Units/L (46-116); ASPARTATE AMINO TRANSFERASE 18 Units/L (15-37); BLOOD UREA NITROGEN 10 mg/dL (7-18); CALCIUM 8.2 mg/dL (8.5-10.1); CARBON DIOXIDE 31.3 mmol/L (21-32); CHLORIDE 107 mmol/L (98-107); COR NA(FOR HYPERGLY) 149 mmol/L (136-145); CREATININE 0.28 mg/dL (0.55-1.02); SODIUM 145 mmol/L (136-145); TOTAL PROTEIN 5.6 g/dL (6.4-8.2); eGFR NON BLACK RACES > 60 (>60)
[2020-11-12] MEDS: K-RIDER 10 MEQ/NS 100 ML 10 MEQ/100 ML BAG IV PRN ×6 (06:39→14:25)
[2020-11-12] MEDS: NS 1000 ML 1,000 ML IV SCH ×2 (06:39→19:44)
--- NOTE | 2020-11-12 06:41 | RAD ---
HISTORYSOB ventilatorSTUDYAP [id number] ed normal heart size and contour with no change in degree or distribution of bilateral pulmonary infiltrates. No additional consolidation is identified. Stable position of tracheostomy and NG tube, NG tube termination not definitely identified.IMPRESSIONNo change in appearance of bilateral pneumonia.Electronically signed by: ROSA HSU (Nov 12, 2020 06:40:07)
[2020-11-12] MEDS ORDERED: INVANZ INJ 1 GM VIAL ONE (08:44)
[2020-11-12] MEDS: INVANZ INJ 1 GM VIAL 1 GM in NS 100 ML IV + SPIKE MINIBAG* 100 ML IV SCH (09:00)
[2020-11-12] MEDS: NYSTATIN CREAM TOP SCH ×2 (09:05→20:42)
[2020-11-12] MEDS: THIAMINE HCL INJ IVP SCH ×2 (09:05→20:49)
[2020-11-12] MEDS: PROTONIX INJ 40 MG VIAL IVP SCH (09:05)
[2020-11-12] MEDS: LACRI-LUBE S.O.P. AFFEYE SCH (09:05)
[2020-11-12] MEDS: PULMICORT NEB TX 0.5 MG NEB SCH ×2 (09:15→20:00)
[2020-11-12] MEDS: BROVANA IN SCH ×2 (09:15→20:00)
[2020-11-12] MEDS: ALBUMIN HUMAN 25%- 100 ML 100 ML IV SCH (09:45)
[2020-11-12] MEDS: DIAMOX PO SCH (09:59)
[2020-11-12] MEDS: MILK OF MAGNESIA NG SCH ×2 (09:59→20:42)
[2020-11-12] MEDS ORDERED: NS 1000 ML 1,000 ML IV SCH ×2 (10:00→13:30)
[2020-11-12] MEDS: VITAMIN D3 125 mcg (5,000 UNITS) NG SCH (10:00)
--- NOTE | 2020-11-12 10:27 | PCM.PROG ---
Progress Note - Progress Note for Day of Date of Exam: 11/12/20 - Subjective Subjective: MS. RICHARDS WAS ADMITTED FOR TREATMENT OF COVID PNEUMONIA AND HYPOXIA. HX OBESITY, OTHERWISE, NO SIGNIFICANT PMH. SHE REMAINS IN THE INTENSIVE CARE UNIT. SHE WAS INTUBATED ON 10/24 DUE TO RESPIRATORY FAILURE. TRACHEOSTOMY WAS INSERTED ON 11/07. SHE RECEIVED TWO UNITS OF PRBC LAST WEEK. HER VENT SETTINGS THIS MORNING ARE: A/C, RATE 30, TIDAL VOLUME 400, PEEP 12, FI02 100. SATURATIONS HAVE BEEN 86-94% THROUGHOUT THE NIGHT. ON EXAMINATION, HEART IS REGULAR IN RATE AND RHYTHM. BILATERAL LUNGS ARE NOTED WITH DIMINISHED LUNG SOUNDS THROUGHOUT. ABDOMEN IS ROUND, SOFT, AND NON-TENDER WITH NORMAL BOWEL SOUNDS NOTED IN ALL QUADRANTS. HER VITALS THIS MORNING ARE: 98.2-90-30-94%-145/84. LABS WERE OBTAINED. ABNORMAL LAB VALUES INCLUDE THE FOLLOWING: RBC 3.40, HGB 11.3, HCT 33.0, PLT COUNT 79, POTASSIUM 3.0, CREATININE 0.28, GLUCOSE 275, CALCIUM 8.2, TOTAL BILI 1.40, TOTAL PROTEIN 5.6, GLOBULIN 2 .1. ABG REVEALED: PH P.450, PC02 51, P02 45, HC03 35.4, 02 SAT 83, BASE EXCESS 9.8, A-A GRADIENT 604, FI02 100. A URINALYSIS WAS OBTAINED YESTERDAY AND REVEALED: WBC 10-20, RBC TNTC, BACTERIA 1+, YEAST MANY, OCCULT BLOOD 5+, LEUKOCYTES 1+. URINE CULTURE IS PENDING. CHEST XRAY WAS OBTAINED AND REVEALED: No change in appearance of bilateral pneumonia. WE WILL ADD INVANZ 1G IV DAILY TODAY AND RESUME HER DIFLUCAN. WE WILL INCREASE HER PEEP TO 14. OTHERWISE, WE IVONNE LCONTINUE WITH HER SEDATION, NEBULIZER TREATMENTS, IV FLUIDS, STEROIDS, BLOOD GLUCOSE CONTROL, ENTERAL FEEDINGS AND CURRENT PLAN OF CARE. WE WILL FOLLOW UP WITH AM LABS, CHEST XRAY, ABG, AND CONTINUE TO MONITOR. TIME SPENT ON CLINICAL ASSESSMENT, REVIEWING LABS AND IMAGING, DECISION MAKING, AND DOCUMENTATION GREATER THAN 75 MINUTES. - Past Medical Family Social History Past Med/Fam/Surg Hx: No changes since H&P Allergies: Allergies ibuprofen Adverse Reaction (Verified 10/06/20 20:57) abd pain - Review of Systems ROS: No change since H&P - Vital Signs and I&O's Vital Signs: Temperature 98.2 F Pulse Rate [Apical] 71 Pulse Rate [Left] 81 Pulse Rate 90 Respiratory Rate 30 Blood Pressure [Right Arm] 117/65 Blood Pressure [Left Arm] 147/90 Blood Pressure 145/84 O2 Sat by Pulse Oximetry 94 Intake and Output: Intake & Output 11/09/20 11/10/20 11/11/20 11/12/20 11:59 11:59 11:59 11:59 Intake Total 3747 / 3747 4309.0 / 4309.0 4600 / 4600 3675 / 3675 Output Total 6300 / 6300 5025 / 5025 5125 / 5125 6350 / 6350 Balance -2553 / -2553 -716.0 / -716.0 -525 / -525 -2675 / -2675 - Physical Exam Oriented: Unable to test Eyes: Normal Ear: Normal Nose: Normal Throat: Normal Respiratory: Generalized, Diminished Cardiovascular: Normal : Normal Auscultation: Bowel Sounds: Normal Tenderness: Normal Skin: Normal Musculoskeletal: Normal Psychiatric: Normal Mood Description: Anxious Affect: Anxious Speech Pattern: Artificially Ventilated - Laboratory and Diagnostics Result Diagrams: 11/12/20 04:20 11/12/20 04:20 Labs: 11/11/20 14:05 Urine,Catheterized Urine Culture - Preliminary 10/24/20 20:55 Sputum - Endotracheal Wash Sputum Culture - Final 10/24/20 20:55 Sputum - Endotracheal Wash - Final 10/07/20 11:51 Blood Blood Culture - Final 10/07/20 11:49 Blood Blood Culture - Final Laboratory WBC 3.8 X10^3/uL (3.6-10.0) 11/12/20 04:20 RBC 3.40 X10^6/uL (3.5-5.4) L 11/12/20 04:20 Hgb 11.3 g/dL (12.0-16.0) L 11/12/20 04:20 Hct 33.0 % (36.0-47.0) L 11/12/20 04:20 MCV 97.1 fL (80.0-100.0) 11/12/20 04:20 MCH 33.1 pg (27.0-34.0) 11/12/20 04:20 MCHC 34.1 g/dL (33.0-35.0) 11/12/20 04:20 RDW 18.9 % (11.6-16.5) H 11/12/20 04:20 Plt Count 79 X10^3/uL (150.0-450.0) L 11/12/20 04:20 Plt Count Comment Decreased (ADEQUATE) A 11/07/20 04:34 MPV 9.3 fL (7.4-11.0) 11/12/20 04:20 Neut % (Auto) 83.4 % (42.0-75.0) H 11/12/20 04:20 Lymph % (Auto) 11.4 % (21.0-51.0) L 11/12/20 04:20 [place] % (Auto) 5.1 % (0.0-13.0) 11/12/20 04:20 Eos % (Auto) 0.0 % (0.9-2.9) L 11/12/20 04:20 Baso % (Auto) 0.1 % (0.2-1.0) L 11/12/20 04:20 Neut # (Auto) 3.2 x10^3/uL (2.2-4.8) 11/12/20 04:20 Lymph # (Auto) 0.4 X10^3/uL (1.3-2.9) L 11/12/20 04:20 [place] # (Auto) 0.2 x10^3/uL (0.3-0.8) L 11/12/20 04:20 Eos # (Auto) 0.0 x10^3/uL (0.0-0.2) 11/12/20 04:20 Baso # (Auto) 0.0 X10^3/uL (0.0-0.1) 11/12/20 04:20 Absolute Nucleated RBC 0.3 /100WBC 11/12/20 04:20 Total Counted 100 11/07/20 04:34 Neutrophils % (Manual) 86 % (39-76) H 11/07/20 04:34 Band Neutrophils % 6 % (0-10) 11/07/20 04:34 Lymphocytes % (Manual) 4 % (13-43) L 11/07/20 04:34 Monocytes % (Manual) 3 % (4-9) L 11/07/20 04:34 Eosinophils % (Manual) 1 % (0-6) 11/07/20 04:34 Basophils % (Manual) Cancelled 11/01/20 05:10 Metamyelocytes % Cancelled 11/01/20 05:10 Myelocytes % Cancelled 11/01/20 05:10 Promyelocytes % Cancelled 11/01/20 05:10 Nucleated RBCs Cancelled 11/01/20 05:10 Atypical Lymphocytes Cancelled 11/01/20 05:10 Blast Cells Cancelled 11/01/20 05:10 Smudge Cells Cancelled 11/01/20 05:10 Toxic Granulation Cancelled 11/01/20 05:10 Dohle Bodies Cancelled 11/01/20 05:10 Gutierrez Rods Cancelled 11/01/20 05:10 Plt Clumps, EDTA Cancelled 11/01/20 05:10 Giant Platelets Cancelled 11/01/20 05:10 Plt Morphology Comment Normal (NORMAL) 11/07/20 04:34 RBC Morphology Abnormal (NORMAL) A 11/07/20 04:34 Dimorphic RBCs Cancelled 11/01/20 05:10 Polychromasia Cancelled 11/01/20 05:10 Hypochromasia Slight A 11/07/20 04:34 Poikilocytosis Cancelled 11/01/20 05:10 Basophilic Stippling Cancelled 11/01/20 05:10 Anisocytosis Slight A 11/07/20 04:34 Microcytosis Cancelled 11/01/20 05:10 Macrocytosis Slight A 11/07/20 04:34 Spherocytes Cancelled 11/01/20 05:10 Pappenheimer Bodies Cancelled 11/01/20 05:10 Sickle Cells Cancelled 11/01/20 05:10 Target Cells Cancelled 11/01/20 05:10 Tear Drop Cells Cancelled 11/01/20 05:10 Ovalocytes Cancelled 11/01/20 05:10 Stomatocytes Cancelled 11/01/20 05:10 Helmet Cells Cancelled 11/01/20 05:10 Florian-Heath Bodies Cancelled 11/01/20 05:10 [place] Rings Cancelled 11/01/20 05:10 [place] Cells Cancelled 11/01/20 05:10 Crenated Cell Cancelled 11/01/20 05:10 Acanthocytes (Spur) Cancelled 11/01/20 05:10 Rouleaux Cancelled 11/01/20 05:10 Schistocytes Cancelled 11/01/20 05:10 PT 15.7 SECONDS (11.8-14.3) 11/06/20 04:27 INR Target Range - 11/06/20 04:27 INR 1.31 (0.8-1.3) H 11/06/20 04:27 D-Dimer 1.29 ug/ml (0.0-0.57) H* 11/05/20 05:11 Sample Site Art-line 11/12/20 04:41 ABG pH 7.450 (7.35-7.45) 11/12/20 04:41 ABG pCO2 51.0 mmHg (35.0-45.0) H* 11/12/20 04:41 ABG pO2 45.0 mmHg (80.0-100.0) L* 11/12/20 04:41 ABG HCO3 35.4 mmol/L (22-26) H* 11/12/20 04:41 ABG O2 Saturation 83.0 % (90-100) L* 11/12/20 04:41 ABG Base Excess 9.8 mmol/L (-2.0-2.0) H 11/12/20 04:41 Loyd Test Na 11/12/20 04:41 A-a Gradient 604.0 mmHg 11/12/20 04:41 FiO2 100.0 11/12/20 04:41 Blood Gas Comments Coby well 11/12/20 04:41 Sodium 145 mmol/L (136-145) 11/12/20 04:20 Corrected Sodium 149 mmol/L (136-145) H 11/12/20 04:20 Potassium 3.0 mmol/L (3.5-5.1) L* 11/12/20 04:20 Chloride 107 mmol/L (98-107) 11/12/20 04:20 Carbon Dioxide 31.3 mmol/L (21-32) 11/12/20 04:20 BUN 10 mg/dL (7-18) 11/12/20 04:20 Creatinine 0.28 mg/dL (0.55-1.02) L 11/12/20 04:20 Est GFR (MDRD) Af Amer > 60 (>60) 11/12/20 04:20 Est GFR (MDRD) Non-Af > 60 (>60) 11/12/20 04:20 Glucose 275 mg/dL (65-99) H 11/12/20 04:20 POC Glucose (mg/dL) 241 mg/dL (65-99) H 11/12/20 09:03 Calcium 8.2 mg/dL (8.5-10.1) L 11/12/20 04:20 Corrected Calcium TNP 11/12/20 04:20 Phosphorus 2.2 mg/dL (2.6-4.7) L 11/01/20 05:10 Magnesium 2.3 mg/dL (1.7-2.9) 11/12/20 04:20 Ferritin 531 ng/mL (8-252) H 10/12/20 05:33 Total Bilirubin 1.40 mg/dL (0.2-1.0) H 11/12/20 04:20 AST 18 Units/L (15-37) 11/12/20 04:20 ALT 48 Units/L (12-78) 11/12/20 04:20 Alkaline Phosphatase 85 Units/L (46-116) 11/12/20 04:20 Creatine Kinase 180 Units/L (26-192) 10/07/20 11:49 CK-MB (CK-2) < 1.0 ng/mL (0-4.0) 10/07/20 11:49 CK/CKMB % Calc 0.6 % (<4) 10/07/20 11:49 Troponin I < 0.02 ng/mL (0-1.5) 10/07/20 11:49 C-Reactive Protein 2.30 mg/L (0-3.0) 11/04/20 04:47 B-Natriuretic Peptide 19.1 pg/mL (0-79) 11/09/20 04:25 Total Protein 5.6 g/dL (6.4-8.2) L 11/12/20 04:20 Albumin 3.5 g/dL (3.4-5.0) 11/12/20 04:20 Globulin 2.1 g/dL (2.5-4.5) L 11/12/20 04:20 Albumin/Globulin Ratio 1.7 Ratio (1.1-2.1) 11/12/20 04:20 Prealbumin 23.7 mg/dL (18-35.7) 11/08/20 03:40 Triglycerides 168 mg/dL (0-150) H 11/01/20 05:10 Specimen Type Catherized urine 11/11/20 14:05 Urine Color Yellow (YELLOW) 11/11/20 14:05 Urine Appearance Hazy (CLEAR) 11/11/20 14:05 Urine pH 7.0 (5.0 - 8.0) 11/11/20 14:05 Ur Specific [place] 1.015 (1.000-1.030) 11/11/20 14:05 Urine Protein 2+ (NEGATIVE) 11/11/20 14:05 Urine Glucose (UA) Negative (NEGATIVE) 11/11/20 14:05 Urine Ketones Negative (NEGATIVE) 11/11/20 14:05 Urine Occult Blood 5+ (NEGATIVE) 11/11/20 14:05 Urine Nitrite Negative (NEGATIVE) 11/11/20 14:05 Urine Bilirubin Negative (NEGATIVE) 11/11/20 14:05 Urine Urobilinogen Normal (NORMAL) 11/11/20 14:05 Ur Leukocyte Esterase 1+ (NEGATIVE) 11/11/20 14:05 Urine RBC Tntc /HPF (0-3) A 11/11/20 14:05 Urine WBC 10-20 /HPF (0-5) A 11/11/20 14:05 Ur Squamous Epith Cells Negative /HPF (NEGATIVE) 11/11/20 14:05 Ur Renal Epithelial Cell Rare /HPF (NEGATIVE) 11/11/20 14:05 Urine Bacteria 1+ /HPF (NEGATIVE) 11/11/20 14:05 Urine Yeast Many /HPF (NEGATIVE) 11/11/20 14:05 Ur Culture Indicated? Yes/culture set up 11/11/20 14:05 Blood Type A POSITIVE 11/08/20 10:20 Antibody Screen Negative 11/08/20 10:20 Crossmatch See Detail 11/08/20 10:20 - Plan (1) Pneumonia due to COVID-19 virus Status: Acute Plan: MECHANICAL VENT, IV FLUIDS, DIAMOX 250MG PO DAILY, POTASSIUM AND MAGNESIUM REPLACEMENT, IV ANTIBIOTICS, IV STEROIDS, IV DIFLUCAN, NEBULIZER TREATMENTS, RESPIRATORY THERAPY, VERSED FOR SEDATION, ENTERAL NUTRITION, GLUCOSE MONITORING WITH SLIDING SCALE COVERAGE. (2) ARDS (adult respiratory distress syndrome) Status: Acute (3) Hypoxia Status: Acute (4) Thrombocytopenia Status: Acute (5) Anemia Status: Acute Qualifiers: Anemia type: iron deficiency Iron deficiency anemia type: chronic blood loss Qualified Code(s): D50.0 - Iron deficiency anemia secondary to blood loss (chronic)
[2020-11-12] MEDS ORDERED: AMBISOME 300 MG in D5W 250 ML IV 250 ML IV SCH (11:30)
[2020-11-12] MEDS: VERSED 100 MG in NS 100 ML IV 80 ML IV PRN (13:29)
[2020-11-12] MEDS: SNACK - Diabetic Appropriate PO SCH (19:44)
[2020-11-13] MEDS: DIPRIVAN PREMIX 1 GRAM IV 1,000 MG/100 ML VIAL IV PRN ×5 (01:00→23:12)
[2020-11-13 04:22] LABS: ABG BASE EXCESS 7.3 mmol/L (-2.0-2.0)
[2020-11-13 04:23] LABS: ABG HCO3 33.9 mmol/L (22-26)
[2020-11-13] MEDS: SOLU-Medrol 40 MG VIAL IVP SCH ×3 (05:06→21:00)
[2020-11-13 05:13] LABS: BASOPHILS % (AUTO) 1.1 % (0.2-1.0); EOSINOPHILS % (AUTO) 0.1 % (0.9-2.9); HEMATOCRIT 36.2 % (36.0-47.0); HEMOGLOBIN 12.1 g/dL (12.0-16.0); LYMPHOCYTES # (AUTO) 0.3 X10^3/uL (1.3-2.9); LYMPHOCYTES % (AUTO) 7.6 % (21.0-51.0); MEAN CORPUSCULAR HEMOGLOBIN 32.7 pg (27.0-34.0); MEAN CORPUSCULAR HGB CONC 33.4 g/dL (33.0-35.0); MEAN CORPUSCULAR VOLUME 97.7 fL (80.0-100.0); MEAN PLATELET VOLUME 9.5 fL (7.4-11.0); MONOCYTES # (AUTO) 0.3 x10^3/uL (0.3-0.8); MONOCYTES % (AUTO) 6.2 % (0.0-13.0); NEUTROPHILS # (AUTO) 3.7 x10^3/uL (2.2-4.8); PLATELET COUNT 102 X10^3/uL (150.0-450.0); RED BLOOD COUNT 3.71 X10^6/uL (3.5-5.4); RED CELL DISTRIBUTION WIDTH 19.5 % (11.6-16.5); WHITE BLOOD COUNT 4.4 X10^3/uL (3.6-10.0)
[2020-11-13 05:26] LABS: ALANINE AMINOTRANSFERASE 47 Units/L (12-78); ALBUMIN 3.9 g/dL (3.4-5.0); ALKALINE PHOSPHATASE 86 Units/L (46-116); ASPARTATE AMINO TRANSFERASE 18 Units/L (15-37); BLOOD UREA NITROGEN 9 mg/dL (7-18); CALCIUM 8.6 mg/dL (8.5-10.1); CARBON DIOXIDE 33.5 mmol/L (21-32); CHLORIDE 107 mmol/L (98-107); COR NA(FOR HYPERGLY) 149 mmol/L (136-145); CREATININE 0.33 mg/dL (0.55-1.02); SODIUM 145 mmol/L (136-145); TOTAL PROTEIN 6.3 g/dL (6.4-8.2); eGFR NON BLACK RACES > 60 (>60)
[2020-11-13] MEDS: ACCUNEB 1.25 MG NEBULE NEB SCH ×4 (05:28→20:20)
[2020-11-13] MEDS ORDERED: SALINE 3% 15 ML NEB TX ONE (05:34)
[2020-11-13] MEDS: VERSED 100 MG in NS 100 ML IV 80 ML IV PRN (05:45)
--- NOTE | 2020-11-13 06:57 | RAD ---
HISTORYSOB ventilatorSTUDYPortable AP [id number] is interval improvement in the airspace process in the right lower lobe. There is no other interval change in appearance of heart or lungs. Stable position of tracheostomy and NG tube.IMPRESSIONPersistent pneumonia with slight improvement in the right lower lobe component.Electronically signed by: ROSA HSU (Nov 13, 2020 06:55:37)
[2020-11-13] MEDS: NS 1000 ML 1,000 ML IV SCH ×2 (08:00→22:57)
[2020-11-13] MEDS: ALBUMIN HUMAN 25%- 100 ML 100 ML IV SCH (08:20)
[2020-11-13] MEDS: MILK OF MAGNESIA NG SCH ×2 (08:21→20:10)
[2020-11-13] MEDS: PROTONIX INJ 40 MG VIAL IVP SCH (08:21)
[2020-11-13] MEDS: VITAMIN D3 125 mcg (5,000 UNITS) NG SCH (08:21)
[2020-11-13] MEDS: THIAMINE HCL INJ IVP SCH ×2 (08:21→20:43)
[2020-11-13] MEDS: DIAMOX PO SCH (08:22)
[2020-11-13] MEDS: NYSTATIN CREAM TOP SCH ×2 (08:22→20:10)
[2020-11-13] MEDS: HumuLIN R SUBCUT PRN ×2 (08:30→16:43)
[2020-11-13] MEDS: PULMICORT NEB TX 0.5 MG NEB SCH ×2 (08:35→20:20)
[2020-11-13] MEDS: BROVANA IN SCH ×2 (08:35→20:20)
[2020-11-13] MEDS: INVANZ INJ 1 GM VIAL 1 GM in NS 100 ML IV + SPIKE MINIBAG* 100 ML IV SCH (08:54)
[2020-11-13] MEDS: ZEMURON 100 MG VIAL 500 MG in NS 500 ML IV 450 ML IV PRN ×2 (09:04→18:00)
[2020-11-13] MEDS: DIFLUCAN 200 MG IV PREMIX* 200 MG/100 ML BAG IV SCH (09:50)
--- NOTE | 2020-11-13 10:55 | PCM.PROG ---
Progress Note - Progress Note for Day of Date of Exam: 11/13/20 - Subjective Subjective: MS. RICHARDS WAS ADMITTED FOR TREATMENT OF COVID PNEUMONIA AND HYPOXIA. HX OBESITY, OTHERWISE, NO SIGNIFICANT PMH. SHE REMAINS IN THE INTENSIVE CARE UNIT. SHE WAS INTUBATED ON 10/24 DUE TO RESPIRATORY FAILURE. TRACHEOSTOMY WAS INSERTED ON 11/07. SHE RECEIVED TWO UNITS OF PRBC LAST WEEK. HER VENT SETTINGS THIS MORNING ARE: A/C, RATE 30, TIDAL VOLUME 400, PEEP 14, FI02 96. SATURATIONS HAVE BEEN 91-96% THROUGHOUT THE NIGHT. ON EXAMINATION, HEART IS REGULAR IN RATE AND RHYTHM. BILATERAL LUNGS ARE NOTED WITH DIMINISHED LUNG SOUNDS THROUGHOUT. ABDOMEN IS ROUND, SOFT, AND NON-TENDER WITH NORMAL BOWEL SOUNDS NOTED IN ALL QUADRANTS. HER VITALS THIS MORNING ARE: 98.5-95-30-95%-129/69. LABS WERE OBTAINED. ABNORMAL LAB VALUES INCLUDE THE FOLLOWING: PLT COUNT 102, D-DIMER 1.01, CARBON DIOXIDE 33.5, CREATININE 0.33, GLUCOSE 284, TOTAL BILI 1.30, BNP 14.40, TOTAL PROTEIN 6.3. ABG REVEALED: PH 7.390, PC02 56.0, P02 72, HC03 33.9, 02 SAT 94, BASE EXCESS 7.3, A-A GRADIENT 571, FI02 100. URINE AND SPUTUM CULTURES PENDING. CHEST XRAY WAS OBTAINED AND REVEALED: Persistent pneumonia with slight improvement in the right lower lobe component. WE WILL INCREASE SOLU-MEDROL TO 80MG IV Q8H. OTHERWISE, WE WILL CONTINUE WITH HER SEDATION, NEBULIZER TREATMENTS, ANTIBIOTICS, IV FLUIDS, STEROIDS, BLOOD GLUCOSE CONTROL, ENTERAL FEEDINGS AND CURRENT PLAN OF CARE. WE WILL FOLLOW UP WITH AM LABS, CHEST XRAY, ABG, AND CONTINUE TO MONITOR. TIME SPENT ON CLINICAL ASSESSMENT, REVIEWING LABS AND IMAGING, DECISION MAKING, AND DOCUMENTATION GREATER THAN 75 MINUTES. - Past Medical Family Social History Past Med/Fam/Surg Hx: No changes since H&P Allergies: Allergies ibuprofen Adverse Reaction (Verified 10/06/20 20:57) abd pain - Review of Systems ROS: No change since H&P - Vital Signs and I&O's Vital Signs: Temperature 98.5 F Pulse Rate [Apical] 71 Pulse Rate [Left] 81 Pulse Rate 95 Respiratory Rate 30 Blood Pressure [Right Arm] 117/65 Blood Pressure [Left Arm] 147/90 Blood Pressure 129/69 O2 Sat by Pulse Oximetry 95 Intake and Output: Intake & Output 11/10/20 11/11/20 11/12/20 11/13/20 11:59 11:59 11:59 11:59 Intake Total 4309.0 / 4309.0 4600 / 4600 3675 / 3675 4040 / 4040 Output Total 5025 / 5025 5125 / 5125 6350 / 6350 4405 / 4405 Balance -716.0 / -716.0 -525 / -525 -2675 / -2675 -365 / -365 - Physical Exam Oriented: Unable to test Eyes: Normal Ear: Normal Nose: Normal Throat: Normal Respiratory: Generalized, Diminished Cardiovascular: Normal : Normal Auscultation: Bowel Sounds: Normal Tenderness: Normal Skin: Normal Musculoskeletal: Normal Psychiatric: Normal Mood Description: Anxious Affect: Anxious Speech Pattern: Artificially Ventilated - Laboratory and Diagnostics Result Diagrams: 11/13/20 04:04 11/13/20 04:04 Labs: 11/12/20 14:54 Sputum - Endotracheal Wash Sputum Culture - Preliminary 11/12/20 14:54 Sputum - Endotracheal Wash - Final 11/11/20 14:05 Urine,Catheterized Urine Culture - Preliminary 10/24/20 20:55 Sputum - Endotracheal Wash Sputum Culture - Final 10/24/20 20:55 Sputum - Endotracheal Wash - Final 10/07/20 11:51 Blood Blood Culture - Final 10/07/20 11:49 Blood Blood Culture - Final Laboratory WBC 4.4 X10^3/uL (3.6-10.0) 11/13/20 04:04 RBC 3.71 X10^6/uL (3.5-5.4) 11/13/20 04:04 Hgb 12.1 g/dL (12.0-16.0) 11/13/20 04:04 Hct 36.2 % (36.0-47.0) 11/13/20 04:04 MCV 97.7 fL (80.0-100.0) 11/13/20 04:04 MCH 32.7 pg (27.0-34.0) 11/13/20 04:04 MCHC 33.4 g/dL (33.0-35.0) 11/13/20 04:04 RDW 19.5 % (11.6-16.5) H 11/13/20 04:04 Plt Count 102 X10^3/uL (150.0-450.0) L 11/13/20 04:04 Plt Count Comment Decreased (ADEQUATE) A 11/07/20 04:34 MPV 9.5 fL (7.4-11.0) 11/13/20 04:04 Neut % (Auto) 85.0 % (42.0-75.0) H 11/13/20 04:04 Lymph % (Auto) 7.6 % (21.0-51.0) L 11/13/20 04:04 [place] % (Auto) 6.2 % (0.0-13.0) 11/13/20 04:04 Eos % (Auto) 0.1 % (0.9-2.9) L 11/13/20 04:04 Baso % (Auto) 1.1 % (0.2-1.0) H 11/13/20 04:04 Neut # (Auto) 3.7 x10^3/uL (2.2-4.8) 11/13/20 04:04 Lymph # (Auto) 0.3 X10^3/uL (1.3-2.9) L 11/13/20 04:04 [place] # (Auto) 0.3 x10^3/uL (0.3-0.8) 11/13/20 04:04 Eos # (Auto) 0.0 x10^3/uL (0.0-0.2) 11/13/20 04:04 Baso # (Auto) 0.0 X10^3/uL (0.0-0.1) 11/13/20 04:04 Absolute Nucleated RBC 0.4 /100WBC 11/13/20 04:04 Total Counted 100 11/07/20 04:34 Neutrophils % (Manual) 86 % (39-76) H 11/07/20 04:34 Band Neutrophils % 6 % (0-10) 11/07/20 04:34 Lymphocytes % (Manual) 4 % (13-43) L 11/07/20 04:34 Monocytes % (Manual) 3 % (4-9) L 11/07/20 04:34 Eosinophils % (Manual) 1 % (0-6) 11/07/20 04:34 Basophils % (Manual) Cancelled 11/01/20 05:10 Metamyelocytes % Cancelled 11/01/20 05:10 Myelocytes % Cancelled 11/01/20 05:10 Promyelocytes % Cancelled 11/01/20 05:10 Nucleated RBCs Cancelled 11/01/20 05:10 Atypical Lymphocytes Cancelled 11/01/20 05:10 Blast Cells Cancelled 11/01/20 05:10 Smudge Cells Cancelled 11/01/20 05:10 Toxic Granulation Cancelled 11/01/20 05:10 Dohle Bodies Cancelled 11/01/20 05:10 Gutierrez Rods Cancelled 11/01/20 05:10 Plt Clumps, EDTA Cancelled 11/01/20 05:10 Giant Platelets Cancelled 11/01/20 05:10 Plt Morphology Comment Normal (NORMAL) 11/07/20 04:34 RBC Morphology Abnormal (NORMAL) A 11/07/20 04:34 Dimorphic RBCs Cancelled 11/01/20 05:10 Polychromasia Cancelled 11/01/20 05:10 Hypochromasia Slight A 11/07/20 04:34 Poikilocytosis Cancelled 11/01/20 05:10 Basophilic Stippling Cancelled 11/01/20 05:10 Anisocytosis Slight A 11/07/20 04:34 Microcytosis Cancelled 11/01/20 05:10 Macrocytosis Slight A 11/07/20 04:34 Spherocytes Cancelled 11/01/20 05:10 Pappenheimer Bodies Cancelled 11/01/20 05:10 Sickle Cells Cancelled 11/01/20 05:10 Target Cells Cancelled 11/01/20 05:10 Tear Drop Cells Cancelled 11/01/20 05:10 Ovalocytes Cancelled 11/01/20 05:10 Stomatocytes Cancelled 11/01/20 05:10 Helmet Cells Cancelled 11/01/20 05:10 [place] Bodies Cancelled 11/01/20 05:10 [place] Rings Cancelled 11/01/20 05:10 [place] Cells Cancelled 11/01/20 05:10 Crenated Cell Cancelled 11/01/20 05:10 Acanthocytes (Spur) Cancelled 11/01/20 05:10 Rouleaux Cancelled 11/01/20 05:10 Schistocytes Cancelled 11/01/20 05:10 PT 15.7 SECONDS (11.8-14.3) 11/06/20 04:27 INR Target Range - 11/06/20 04:27 INR 1.31 (0.8-1.3) H 11/06/20 04:27 D-Dimer 1.01 ug/ml (0.0-0.57) H* 11/13/20 04:04 Sample Site Elin 11/13/20 04:15 ABG pH 7.390 (7.35-7.45) 11/13/20 04:15 ABG pCO2 56.0 mmHg (35.0-45.0) H* 11/13/20 04:15 ABG pO2 72.0 mmHg (80.0-100.0) L 11/13/20 04:15 ABG HCO3 33.9 mmol/L (22-26) H* 11/13/20 04:15 ABG O2 Saturation 94.0 % (90-100) 11/13/20 04:15 ABG Base Excess 7.3 mmol/L (-2.0-2.0) H 11/13/20 04:15 Loyd Test N/a 11/13/20 04:15 A-a Gradient 571.0 mmHg 11/13/20 04:15 FiO2 100.0 11/13/20 04:15 Blood Gas Comments Coby well ae 11/13/20 04:15 Sodium 145 mmol/L (136-145) 11/13/20 04:04 Corrected Sodium 149 mmol/L (136-145) H 11/13/20 04:04 Potassium 3.7 mmol/L (3.5-5.1) 11/13/20 04:04 Chloride 107 mmol/L (98-107) 11/13/20 04:04 Carbon Dioxide 33.5 mmol/L (21-32) H 11/13/20 04:04 BUN 9 mg/dL (7-18) 11/13/20 04:04 Creatinine 0.33 mg/dL (0.55-1.02) L 11/13/20 04:04 Est GFR (MDRD) Af Amer > 60 (>60) 11/13/20 04:04 Est GFR (MDRD) Non-Af > 60 (>60) 11/13/20 04:04 Glucose 284 mg/dL (65-99) H 11/13/20 04:04 POC Glucose (mg/dL) 284 mg/dL (65-99) H 11/13/20 08:26 Calcium 8.6 mg/dL (8.5-10.1) 11/13/20 04:04 Corrected Calcium TNP 11/13/20 04:04 Phosphorus 2.2 mg/dL (2.6-4.7) L 11/01/20 05:10 Magnesium 2.3 mg/dL (1.7-2.9) 11/12/20 04:20 Ferritin 531 ng/mL (8-252) H 10/12/20 05:33 Total Bilirubin 1.30 mg/dL (0.2-1.0) H 11/13/20 04:04 AST 18 Units/L (15-37) 11/13/20 04:04 ALT 47 Units/L (12-78) 11/13/20 04:04 Alkaline Phosphatase 86 Units/L (46-116) 11/13/20 04:04 Creatine Kinase 180 Units/L (26-192) 10/07/20 11:49 CK-MB (CK-2) < 1.0 ng/mL (0-4.0) 10/07/20 11:49 CK/CKMB % Calc 0.6 % (<4) 10/07/20 11:49 Troponin I < 0.02 ng/mL (0-1.5) 10/07/20 11:49 C-Reactive Protein 14.40 mg/L (0-3.0) H 11/13/20 04:04 B-Natriuretic Peptide 32.1 pg/mL (0-79) 11/13/20 04:04 Total Protein 6.3 g/dL (6.4-8.2) L 11/13/20 04:04 Albumin 3.9 g/dL (3.4-5.0) 11/13/20 04:04 Globulin 2.4 g/dL (2.5-4.5) L 11/13/20 04:04 Albumin/Globulin Ratio 1.6 Ratio (1.1-2.1) 11/13/20 04:04 Prealbumin 23.7 mg/dL (18-35.7) 11/08/20 03:40 Triglycerides 168 mg/dL (0-150) H 11/01/20 05:10 Specimen Type Catherized urine 11/11/20 14:05 Urine Color Yellow (YELLOW) 11/11/20 14:05 Urine Appearance Hazy (CLEAR) 11/11/20 14:05 Urine pH 7.0 (5.0 - 8.0) 11/11/20 14:05 Ur Specific [place] 1.015 (1.000-1.030) 11/11/20 14:05 Urine Protein 2+ (NEGATIVE) 11/11/20 14:05 Urine Glucose (UA) Negative (NEGATIVE) 11/11/20 14:05 Urine Ketones Negative (NEGATIVE) 11/11/20 14:05 Urine Occult Blood 5+ (NEGATIVE) 11/11/20 14:05 Urine Nitrite Negative (NEGATIVE) 11/11/20 14:05 Urine Bilirubin Negative (NEGATIVE) 11/11/20 14:05 Urine Urobilinogen Normal (NORMAL) 11/11/20 14:05 Ur Leukocyte Esterase 1+ (NEGATIVE) 11/11/20 14:05 Urine RBC Tntc /HPF (0-3) A 11/11/20 14:05 Urine WBC 10-20 /HPF (0-5) A 11/11/20 14:05 Ur Squamous Epith Cells Negative /HPF (NEGATIVE) 11/11/20 14:05 Ur Renal Epithelial Cell Rare /HPF (NEGATIVE) 11/11/20 14:05 Urine Bacteria 1+ /HPF (NEGATIVE) 11/11/20 14:05 Urine Yeast Many /HPF (NEGATIVE) 11/11/20 14:05 Ur Culture Indicated? Yes/culture set up 11/11/20 14:05 Blood Type A POSITIVE 11/08/20 10:20 Antibody Screen Negative 11/08/20 10:20 Crossmatch See Detail 11/08/20 10:20 - Plan (1) Pneumonia due to COVID-19 virus Status: Acute Plan: MECHANICAL VENT, IV FLUIDS, DIAMOX 250MG PO DAILY, POTASSIUM AND MAGNESIUM REPLACEMENT, IV ANTIBIOTICS, IV STEROIDS, IV DIFLUCAN, NEBULIZER TREATMENTS, RESPIRATORY THERAPY, VERSED FOR SEDATION, ENTERAL NUTRITION, GLUCOSE MONITORING WITH SLIDING SCALE COVERAGE. 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
[2020-11-13] MEDS: SNACK - Diabetic Appropriate PO SCH (19:46)
[2020-11-14] MEDS: HumuLIN R SUBCUT PRN ×3 (00:47→17:47)
[2020-11-14] MEDS: VERSED 100 MG in NS 100 ML IV 80 ML IV PRN ×2 (00:50→20:25)
[2020-11-14] MEDS: DIPRIVAN PREMIX 1 GRAM IV 1,000 MG/100 ML VIAL IV PRN ×3 (03:20→20:55)
[2020-11-14] MEDS: ZEMURON 100 MG VIAL 500 MG in NS 500 ML IV 450 ML IV PRN (04:27)
[2020-11-14 05:02] LABS: ABG BASE EXCESS 10.3 mmol/L (-2.0-2.0)
[2020-11-14 05:03] LABS: ABG HCO3 36.5 mmol/L (22-26)
[2020-11-14] MEDS: ACCUNEB 1.25 MG NEBULE NEB SCH ×3 (05:04→20:20)
[2020-11-14 05:18] LABS: BASOPHILS % (AUTO) 0.1 % (0.2-1.0); HEMOGLOBIN 10.8 g/dL (12.0-16.0); LYMPHOCYTES # (AUTO) 0.3 X10^3/uL (1.3-2.9); LYMPHOCYTES % (AUTO) 7.9 % (21.0-51.0); MEAN CORPUSCULAR HEMOGLOBIN 33.1 pg (27.0-34.0); MEAN CORPUSCULAR HGB CONC 33.9 g/dL (33.0-35.0); MEAN CORPUSCULAR VOLUME 97.6 fL (80.0-100.0); MONOCYTES # (AUTO) 0.2 x10^3/uL (0.3-0.8); MONOCYTES % (AUTO) 4.2 % (0.0-13.0); NEUTROPHILS # (AUTO) 3.8 x10^3/uL (2.2-4.8); NEUTROPHILS % (AUTO) 87.8 % (42.0-75.0); PLATELET COUNT 123 X10^3/uL (150.0-450.0); RED BLOOD COUNT 3.27 X10^6/uL (3.5-5.4); RED CELL DISTRIBUTION WIDTH 18.7 % (11.6-16.5); WHITE BLOOD COUNT 4.3 X10^3/uL (3.6-10.0)
[2020-11-14] MEDS: SOLU-Medrol 40 MG VIAL IVP SCH ×3 (05:25→21:30)
[2020-11-14 05:34] LABS: ALANINE AMINOTRANSFERASE 43 Units/L (12-78); ALBUMIN 3.6 g/dL (3.4-5.0); ALKALINE PHOSPHATASE 87 Units/L (46-116); ASPARTATE AMINO TRANSFERASE 15 Units/L (15-37); BLOOD UREA NITROGEN 10 mg/dL (7-18); CALCIUM 8.6 mg/dL (8.5-10.1); CARBON DIOXIDE 31.7 mmol/L (21-32); CHLORIDE 108 mmol/L (98-107); COR NA(FOR HYPERGLY) 151 mmol/L (136-145); CREATININE 0.37 mg/dL (0.55-1.02); SODIUM 146 mmol/L (136-145); TOTAL PROTEIN 5.8 g/dL (6.4-8.2); eGFR NON BLACK RACES > 60 (>60)
[2020-11-14] MEDS: K-RIDER 10 MEQ/NS 100 ML 10 MEQ/100 ML BAG IV PRN ×3 (05:50→11:14)
--- NOTE | 2020-11-14 06:21 | RAD ---
HISTORYSOB ventilatorSTUDYPortable AP [id number] ed normal heart size and contour. Stable position of support lines. There is slight additional improvement in the pulmonary infiltrates especially in the left lower lung. No new involvement, pneumothorax or pleural fluid identified.IMPRESSIONSlight additional improvement in appearance of the pneumonia.Electronically signed by: ROSA HSU (Nov 14, 2020 06:19:16)
[2020-11-14] MEDS: DIAMOX PO SCH (08:30)
[2020-11-14] MEDS: THIAMINE HCL INJ IVP SCH ×2 (08:30→20:57)
[2020-11-14] MEDS: VITAMIN D3 125 mcg (5,000 UNITS) NG SCH (08:30)
[2020-11-14] MEDS: ALBUMIN HUMAN 25%- 100 ML 100 ML IV SCH (08:32)
[2020-11-14] MEDS: MILK OF MAGNESIA NG SCH ×2 (08:35→20:56)
[2020-11-14] MEDS: PULMICORT NEB TX 0.5 MG NEB SCH ×2 (08:55→20:20)
[2020-11-14] MEDS: BROVANA IN SCH ×2 (08:55→20:20)
[2020-11-14] MEDS: DIFLUCAN 200 MG IV PREMIX* 200 MG/100 ML BAG IV SCH (09:50)
[2020-11-14] MEDS: INVANZ INJ 1 GM VIAL 1 GM in NS 100 ML IV + SPIKE MINIBAG* 100 ML IV SCH (10:00)
[2020-11-14] MEDS: PROTONIX INJ 40 MG VIAL IVP SCH (10:00)
--- NOTE | 2020-11-14 10:43 | PCM.PROG ---
Progress Note - Progress Note for Day of Date of Exam: 11/14/20 - Subjective Subjective: MS. RICHARDS WAS ADMITTED FOR TREATMENT OF COVID PNEUMONIA AND HYPOXIA. HX OBESITY, OTHERWISE, NO SIGNIFICANT PMH. SHE REMAINS IN THE INTENSIVE CARE UNIT. SHE WAS INTUBATED ON 10/24 DUE TO RESPIRATORY FAILURE. TRACHEOSTOMY WAS INSERTED ON 11/07. SHE RECEIVED TWO UNITS OF PRBC LAST WEEK. HER VENT SETTINGS THIS MORNING ARE: A/C, RATE 30, TIDAL VOLUME 400, PEEP 14, FI02 100. SATURATIONS HAVE BEEN 91-96% THROUGHOUT THE NIGHT. ON EXAMINATION, HEART IS REGULAR IN RATE AND RHYTHM. BILATERAL LUNGS ARE NOTED WITH DIMINISHED LUNG SOUNDS THROUGHOUT. ABDOMEN IS ROUND, SOFT, AND NON-TENDER WITH NORMAL BOWEL SOUNDS NOTED IN ALL QUADRANTS. HER VITALS THIS MORNING ARE: 98.0-100-30-92%-155/80. LABS WERE OBTAINED. ABNORMAL LAB VALUES INCLUDE THE FOLLOWING: RBC 3.27, HGB 10.8, HCT 32.0, PLT COUNT 123, SODIUM 146, POTASSIUM 3.2, CHLORIDE 108, CREATININE 0.37, GLUCOSE 300, TOTAL BILI 1.10, TOTAL PROTEIN 5.8. ABG REVEALED: PH 7.430, PC02 55.0, P02 67, HC03 36.5, 02 SAT 94, A-A GRADINET 577, FI02 100. URINE AND SPUTUM CULTURES PENDING. CHEST XRAY WAS OBTAINED AND REVEALED: Slight additional improvement in appearance of the pneumonia. WE CONSULTED WITH , PA[employer]ROLL SERVICES ANALYST FROM [facility]. HE REVIEWED PATIENTS CHART AND HAS BEEN FOLLOWING PATIENTS PROGRESS PERIODICALLY. HE HAS NO FURTHER RECOMMENDATIONS AND FEELS THAT DUE TO THE PATIENT HAVING NO MEANINGFUL IMPROVEMENT IN THE PAST MONTH, THAT WE SHOULD DISCUSSING WITH FAMILY WITHDRAWAL OF SUPPORT AND PALLIATIVE CARE. WE WILL DISCUSS WITH PATIENTS DAUGHTER. OTHERWISE, WE WILL CONTINUE WITH HER SEDATION, NEBULIZER TREATMENTS, ANTIBIOTICS, IV FLUIDS, STEROIDS, BLOOD GLUCOSE CONTROL, ENTERAL FEEDINGS AND CURRENT PLAN OF CARE. WE WILL FOLLOW UP WITH AM LABS, CHEST XRAY, ABG, AND CONTINUE TO MONITOR. TIME SPENT ON CLINICAL ASSESSMENT, REVIEWING LABS AND IMAGING, DECISION MAKING, AND DOCUMENTATION GREATER THAN 75 MINUTES. - Past Medical Family Social History Past Med/Fam/Surg Hx: No changes since H&P Allergies: Allergies ibuprofen Adverse Reaction (Verified 10/06/20 20:57) abd pain - Review of Systems ROS: No change since H&P - Vital Signs and I&O's Vital Signs: Temperature 98.0 F Pulse Rate [Apical] 71 Pulse Rate [Left] 81 Pulse Rate 107 Respiratory Rate 30 Blood Pressure [Right Arm] 117/65 Blood Pressure [Left Arm] 147/90 Blood Pressure 173/84 O2 Sat by Pulse Oximetry 92 Intake and Output: Intake & Output 11/11/20 11/12/20 11/13/20 11/14/20 11:59 11:59 11:59 11:59 Intake Total 4600 / 4600 3675 / 3675 4120 / 4120 4330 / 4330 Output Total 5125 / 5125 6350 / 6350 4405 / 4405 3560 / 3560 Balance -525 / -525 -2675 / -2675 -285 / -285 770 / 770 - Physical Exam Oriented: Unable to test Eyes: Normal Ear: Normal Nose: Normal Throat: Normal Respiratory: Generalized, Diminished Cardiovascular: Normal : Normal Auscultation: Bowel Sounds: Normal Tenderness: Normal Skin: Normal Musculoskeletal: Normal Psychiatric: Normal Mood Description: Anxious Affect: Anxious Speech Pattern: Artificially Ventilated - Laboratory and Diagnostics Result Diagrams: 11/14/20 04:10 11/14/20 04:10 Labs: 11/12/20 14:54 Sputum - Endotracheal Wash Sputum Culture - Preliminary 11/12/20 14:54 Sputum - Endotracheal Wash - Final 11/11/20 14:05 Urine,Catheterized Urine Culture - Preliminary 10/24/20 20:55 Sputum - Endotracheal Wash Sputum Culture - Final 10/24/20 20:55 Sputum - Endotracheal Wash - Final 10/07/20 11:51 Blood Blood Culture - Final 10/07/20 11:49 Blood Blood Culture - Final Laboratory WBC 4.3 X10^3/uL (3.6-10.0) 11/14/20 04:10 RBC 3.27 X10^6/uL (3.5-5.4) L 11/14/20 04:10 Hgb 10.8 g/dL (12.0-16.0) L 11/14/20 04:10 Hct 32.0 % (36.0-47.0) L 11/14/20 04:10 MCV 97.6 fL (80.0-100.0) 11/14/20 04:10 MCH 33.1 pg (27.0-34.0) 11/14/20 04:10 MCHC 33.9 g/dL (33.0-35.0) 11/14/20 04:10 RDW 18.7 % (11.6-16.5) H 11/14/20 04:10 Plt Count 123 X10^3/uL (150.0-450.0) L 11/14/20 04:10 Plt Count Comment Decreased (ADEQUATE) A 11/07/20 04:34 MPV 9.0 fL (7.4-11.0) 11/14/20 04:10 Neut % (Auto) 87.8 % (42.0-75.0) H 11/14/20 04:10 Lymph % (Auto) 7.9 % (21.0-51.0) L 11/14/20 04:10 [place] % (Auto) 4.2 % (0.0-13.0) 11/14/20 04:10 Eos % (Auto) 0.0 % (0.9-2.9) L 11/14/20 04:10 Baso % (Auto) 0.1 % (0.2-1.0) L 11/14/20 04:10 Neut # (Auto) 3.8 x10^3/uL (2.2-4.8) 11/14/20 04:10 Lymph # (Auto) 0.3 X10^3/uL (1.3-2.9) L 11/14/20 04:10 [place] # (Auto) 0.2 x10^3/uL (0.3-0.8) L 11/14/20 04:10 Eos # (Auto) 0.0 x10^3/uL (0.0-0.2) 11/14/20 04:10 Baso # (Auto) 0.0 X10^3/uL (0.0-0.1) 11/14/20 04:10 Absolute Nucleated RBC 0.2 /100WBC 11/14/20 04:10 Total Counted 100 11/07/20 04:34 Neutrophils % (Manual) 86 % (39-76) H 11/07/20 04:34 Band Neutrophils % 6 % (0-10) 11/07/20 04:34 Lymphocytes % (Manual) 4 % (13-43) L 11/07/20 04:34 Monocytes % (Manual) 3 % (4-9) L 11/07/20 04:34 Eosinophils % (Manual) 1 % (0-6) 11/07/20 04:34 Basophils % (Manual) Cancelled 11/01/20 05:10 Metamyelocytes % Cancelled 11/01/20 05:10 Myelocytes % Cancelled 11/01/20 05:10 Promyelocytes % Cancelled 11/01/20 05:10 Nucleated RBCs Cancelled 11/01/20 05:10 Atypical Lymphocytes Cancelled 11/01/20 05:10 Blast Cells Cancelled 11/01/20 05:10 Smudge Cells Cancelled 11/01/20 05:10 Toxic Granulation Cancelled 11/01/20 05:10 Dohle Bodies Cancelled 11/01/20 05:10 Gutierrez Rods Cancelled 11/01/20 05:10 Plt Clumps, EDTA Cancelled 11/01/20 05:10 Giant Platelets Cancelled 11/01/20 05:10 Plt Morphology Comment Normal (NORMAL) 11/07/20 04:34 RBC Morphology Abnormal (NORMAL) A 11/07/20 04:34 Dimorphic RBCs Cancelled 11/01/20 05:10 Polychromasia Cancelled 11/01/20 05:10 Hypochromasia Slight A 11/07/20 04:34 Poikilocytosis Cancelled 11/01/20 05:10 Basophilic Stippling Cancelled 11/01/20 05:10 Anisocytosis Slight A 11/07/20 04:34 Microcytosis Cancelled 11/01/20 05:10 Macrocytosis Slight A 11/07/20 04:34 Spherocytes Cancelled 11/01/20 05:10 Pappenheimer Bodies Cancelled 11/01/20 05:10 Sickle Cells Cancelled 11/01/20 05:10 Target Cells Cancelled 11/01/20 05:10 Tear Drop Cells Cancelled 11/01/20 05:10 Ovalocytes Cancelled 11/01/20 05:10 Stomatocytes Cancelled 11/01/20 05:10 Helmet Cells Cancelled 11/01/20 05:10 [place] Bodies Cancelled 11/01/20 05:10 [place] Rings Cancelled 11/01/20 05:10 [place] Cells Cancelled 11/01/20 05:10 Crenated Cell Cancelled 11/01/20 05:10 Acanthocytes (Spur) Cancelled 11/01/20 05:10 Rouleaux Cancelled 11/01/20 05:10 Schistocytes Cancelled 11/01/20 05:10 PT 15.7 SECONDS (11.8-14.3) 11/06/20 04:27 INR Target Range - 11/06/20 04:27 INR 1.31 (0.8-1.3) H 11/06/20 04:27 D-Dimer 1.01 ug/ml (0.0-0.57) H* 11/13/20 04:04 Sample Site Elin 11/14/20 04:57 ABG pH 7.430 (7.35-7.45) 11/14/20 04:57 ABG pCO2 55.0 mmHg (35.0-45.0) H* 11/14/20 04:57 ABG pO2 67.0 mmHg (80.0-100.0) L 11/14/20 04:57 ABG HCO3 36.5 mmol/L (22-26) H* 11/14/20 04:57 ABG O2 Saturation 94.0 % (90-100) 11/14/20 04:57 ABG Base Excess 10.3 mmol/L (-2.0-2.0) H 11/14/20 04:57 Loyd Test N/a 11/14/20 04:57 A-a Gradient 577.0 mmHg 11/14/20 04:57 FiO2 100.0 11/14/20 04:57 Blood Gas Comments Coby well ae 11/14/20 04:57 Sodium 146 mmol/L (136-145) H 11/14/20 04:10 Corrected Sodium 151 mmol/L (136-145) H 11/14/20 04:10 Potassium 3.2 mmol/L (3.5-5.1) L 11/14/20 04:10 Chloride 108 mmol/L (98-107) H 11/14/20 04:10 Carbon Dioxide 31.7 mmol/L (21-32) 11/14/20 04:10 BUN 10 mg/dL (7-18) 11/14/20 04:10 Creatinine 0.37 mg/dL (0.55-1.02) L 11/14/20 04:10 Est GFR (MDRD) Af Amer > 60 (>60) 11/14/20 04:10 Est GFR (MDRD) Non-Af > 60 (>60) 11/14/20 04:10 Glucose 300 mg/dL (65-99) H 11/14/20 04:10 POC Glucose (mg/dL) 298 mg/dL (65-99) H 11/14/20 08:41 Calcium 8.6 mg/dL (8.5-10.1) 11/14/20 04:10 Corrected Calcium TNP 11/14/20 04:10 Phosphorus 2.2 mg/dL (2.6-4.7) L 11/01/20 05:10 Magnesium 2.3 mg/dL (1.7-2.9) 11/12/20 04:20 Ferritin 531 ng/mL (8-252) H 10/12/20 05:33 Total Bilirubin 1.10 mg/dL (0.2-1.0) H 11/14/20 04:10 AST 15 Units/L (15-37) 11/14/20 04:10 ALT 43 Units/L (12-78) 11/14/20 04:10 Alkaline Phosphatase 87 Units/L (46-116) 11/14/20 04:10 Creatine Kinase 180 Units/L (26-192) 10/07/20 11:49 CK-MB (CK-2) < 1.0 ng/mL (0-4.0) 10/07/20 11:49 CK/CKMB % Calc 0.6 % (<4) 10/07/20 11:49 Troponin I < 0.02 ng/mL (0-1.5) 10/07/20 11:49 C-Reactive Protein 14.40 mg/L (0-3.0) H 11/13/20 04:04 B-Natriuretic Peptide 32.1 pg/mL (0-79) 11/13/20 04:04 Total Protein 5.8 g/dL (6.4-8.2) L 11/14/20 04:10 Albumin 3.6 g/dL (3.4-5.0) 11/14/20 04:10 Globulin 2.2 g/dL (2.5-4.5) L 11/14/20 04:10 Albumin/Globulin Ratio 1.6 Ratio (1.1-2.1) 11/14/20 04:10 Prealbumin 23.7 mg/dL (18-35.7) 11/08/20 03:40 Triglycerides 168 mg/dL (0-150) H 11/01/20 05:10 Specimen Type Catherized urine 11/11/20 14:05 Urine Color Yellow (YELLOW) 11/11/20 14:05 Urine Appearance Hazy (CLEAR) 11/11/20 14:05 Urine pH 7.0 (5.0 - 8.0) 11/11/20 14:05 Ur Specific [place] 1.015 (1.000-1.030) 11/11/20 14:05 Urine Protein 2+ (NEGATIVE) 11/11/20 14:05 Urine Glucose (UA) Negative (NEGATIVE) 11/11/20 14:05 Urine Ketones Negative (NEGATIVE) 11/11/20 14:05 Urine Occult Blood 5+ (NEGATIVE) 11/11/20 14:05 Urine Nitrite Negative (NEGATIVE) 11/11/20 14:05 Urine Bilirubin Negative (NEGATIVE) 11/11/20 14:05 Urine Urobilinogen Normal (NORMAL) 11/11/20 14:05 Ur Leukocyte Esterase 1+ (NEGATIVE) 11/11/20 14:05 Urine RBC Tntc /HPF (0-3) A 11/11/20 14:05 Urine WBC 10-20 /HPF (0-5) A 11/11/20 14:05 Ur Squamous Epith Cells Negative /HPF (NEGATIVE) 11/11/20 14:05 Ur Renal Epithelial Cell Rare /HPF (NEGATIVE) 11/11/20 14:05 Urine Bacteria 1+ /HPF (NEGATIVE) 11/11/20 14:05 Urine Yeast Many /HPF (NEGATIVE) 11/11/20 14:05 Ur Culture Indicated? Yes/culture set up 11/11/20 14:05 Blood Type A POSITIVE 11/08/20 10:20 Antibody Screen Negative 11/08/20 10:20 Crossmatch See Detail 11/08/20 10:20 - Plan (1) Pneumonia due to COVID-19 virus Status: Acute Plan: MECHANICAL VENT, IV FLUIDS, DIAMOX 250MG PO DAILY, POTASSIUM AND MAGNESIUM REPLACEMENT, IV ANTIBIOTICS, IV STEROIDS, IV DIFLUCAN, NEBULIZER TREATMENTS, RESPIRATORY THERAPY, VERSED FOR SEDATION, ENTERAL NUTRITION, GLUCOSE MONITORING WITH SLIDING SCALE COVERAGE. 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
[2020-11-14] MEDS: NYSTATIN CREAM TOP SCH ×2 (12:29→20:57)
[2020-11-14] MEDS: NS 1000 ML 1,000 ML IV SCH (12:31)
[2020-11-14] MEDS: NYSTATIN POWDER TOP SCH ×2 (15:00→20:57)
[2020-11-14] MEDS: BUTT CREAM (COMPOUND) TOP SCH ×2 (15:00→20:56)
[2020-11-14] MEDS: SNACK - Diabetic Appropriate PO SCH (20:58)
[2020-11-15] MEDS: HumuLIN R SUBCUT PRN ×4 (00:12→23:40)
[2020-11-15] MEDS: DIPRIVAN PREMIX 1 GRAM IV 1,000 MG/100 ML VIAL IV PRN ×5 (00:14→23:43)
[2020-11-15] MEDS: ZEMURON 100 MG VIAL 500 MG in NS 500 ML IV 450 ML IV PRN ×3 (00:15→20:45)
[2020-11-15] MEDS: NS 1000 ML 1,000 ML IV SCH ×2 (00:17→17:26)
[2020-11-15 04:38] LABS: ABG BASE EXCESS 12.5 mmol/L (-2.0-2.0)
[2020-11-15 04:39] LABS: ABG HCO3 38.4 mmol/L (22-26)
[2020-11-15] MEDS: ACCUNEB 1.25 MG NEBULE NEB SCH ×3 (05:00→20:45)
[2020-11-15 05:17] LABS: BASOPHILS % (AUTO) 0.1 % (0.2-1.0); HEMATOCRIT 31.1 % (36.0-47.0); HEMOGLOBIN 10.7 g/dL (12.0-16.0); LYMPHOCYTES # (AUTO) 0.5 X10^3/uL (1.3-2.9); LYMPHOCYTES % (AUTO) 9.6 % (21.0-51.0); MEAN CORPUSCULAR HEMOGLOBIN 33.3 pg (27.0-34.0); MEAN CORPUSCULAR HGB CONC 34.4 g/dL (33.0-35.0); MEAN CORPUSCULAR VOLUME 96.9 fL (80.0-100.0); MONOCYTES # (AUTO) 0.2 x10^3/uL (0.3-0.8); MONOCYTES % (AUTO) 4.5 % (0.0-13.0); NEUTROPHILS # (AUTO) 4.1 x10^3/uL (2.2-4.8); NEUTROPHILS % (AUTO) 85.8 % (42.0-75.0); PLATELET COUNT 149 X10^3/uL (150.0-450.0); RED BLOOD COUNT 3.21 X10^6/uL (3.5-5.4); RED CELL DISTRIBUTION WIDTH 18.6 % (11.6-16.5); WHITE BLOOD COUNT 4.8 X10^3/uL (3.6-10.0)
[2020-11-15 05:31] LABS: ALANINE AMINOTRANSFERASE 43 Units/L (12-78); ALBUMIN 3.7 g/dL (3.4-5.0); ALKALINE PHOSPHATASE 83 Units/L (46-116); ASPARTATE AMINO TRANSFERASE 19 Units/L (15-37); BLOOD UREA NITROGEN 11 mg/dL (7-18); CALCIUM 8.8 mg/dL (8.5-10.1); CARBON DIOXIDE 35.1 mmol/L (21-32); CHLORIDE 105 mmol/L (98-107); COR NA(FOR HYPERGLY) 152 mmol/L (136-145); CREATININE 0.37 mg/dL (0.55-1.02); SODIUM 147 mmol/L (136-145); TOTAL PROTEIN 5.8 g/dL (6.4-8.2); eGFR NON BLACK RACES > 60 (>60)
--- NOTE | 2020-11-15 06:24 | RAD ---
HISTORYSOBSTUDYAP [id number]/06/2021FINDINGSThere is no significant change in appearance of heart, lungs or support lines. Diffuse infiltrates are stable in appearance. No additional consolidation, complicating pneumothorax or pleural effusion.IMPRESSIONNo change.Electronically signed by: ROSA HSU (Nov 15, 2020 06:22:50)
[2020-11-15] MEDS: DIAMOX PO SCH (08:45)
[2020-11-15] MEDS: VITAMIN D3 125 mcg (5,000 UNITS) NG SCH (08:45)
[2020-11-15] MEDS: MILK OF MAGNESIA NG SCH ×2 (08:46→21:00)
[2020-11-15] MEDS: ALBUMIN HUMAN 25%- 100 ML 100 ML IV SCH (08:46)
[2020-11-15] MEDS: DIFLUCAN 200 MG IV PREMIX* 200 MG/100 ML BAG IV SCH (08:49)
[2020-11-15] MEDS: BUTT CREAM (COMPOUND) TOP SCH ×2 (08:49→21:00)
[2020-11-15] MEDS: NYSTATIN CREAM TOP SCH ×2 (08:50→21:00)
[2020-11-15] MEDS: NYSTATIN POWDER TOP SCH ×2 (08:52→21:00)
[2020-11-15] MEDS: BROVANA IN SCH ×2 (09:00→20:45)
[2020-11-15] MEDS: PULMICORT NEB TX 0.5 MG NEB SCH ×2 (09:00→20:45)
[2020-11-15] MEDS: PROTONIX INJ 40 MG VIAL IVP SCH (09:03)
[2020-11-15] MEDS: SOLU-Medrol 40 MG VIAL IVP SCH ×3 (09:09→21:00)
[2020-11-15] MEDS: THIAMINE HCL INJ IVP SCH ×2 (09:12→21:00)
[2020-11-15] MEDS: INVANZ INJ 1 GM VIAL 1 GM in NS 100 ML IV + SPIKE MINIBAG* 100 ML IV SCH (09:33)
[2020-11-15] MEDS: VERSED 100 MG in NS 100 ML IV 80 ML IV PRN (16:30)
[2020-11-15] MEDS: SNACK - Diabetic Appropriate PO SCH (21:46)
[2020-11-16] MEDS: NS 1000 ML 1,000 ML IV SCH (01:44)
[2020-11-16] MEDS: DIPRIVAN PREMIX 1 GRAM IV 1,000 MG/100 ML VIAL IV PRN ×4 (04:25→21:45)
[2020-11-16] MEDS: ACCUNEB 1.25 MG NEBULE NEB SCH ×3 (05:02→20:27)
[2020-11-16 05:06] LABS: ABG BASE EXCESS 11.5 mmol/L (-2.0-2.0)
[2020-11-16 05:07] LABS: ABG HCO3 37.5 mmol/L (22-26)
[2020-11-16 05:17] LABS: BASOPHILS % (AUTO) 0.3 % (0.2-1.0); HEMATOCRIT 35.1 % (36.0-47.0); HEMOGLOBIN 11.9 g/dL (12.0-16.0); LYMPHOCYTES # (AUTO) 0.5 X10^3/uL (1.3-2.9); LYMPHOCYTES % (AUTO) 7.7 % (21.0-51.0); MEAN CORPUSCULAR HEMOGLOBIN 32.9 pg (27.0-34.0); MEAN CORPUSCULAR VOLUME 96.7 fL (80.0-100.0); MONOCYTES # (AUTO) 0.4 x10^3/uL (0.3-0.8); MONOCYTES % (AUTO) 5.9 % (0.0-13.0); NEUTROPHILS # (AUTO) 5.3 x10^3/uL (2.2-4.8); NEUTROPHILS % (AUTO) 86.1 % (42.0-75.0); PLATELET COUNT 188 X10^3/uL (150.0-450.0); RED BLOOD COUNT 3.63 X10^6/uL (3.5-5.4); RED CELL DISTRIBUTION WIDTH 18.2 % (11.6-16.5); WHITE BLOOD COUNT 6.1 X10^3/uL (3.6-10.0)
[2020-11-16 05:24] LABS: ALANINE AMINOTRANSFERASE 54 Units/L (12-78); ALBUMIN 3.9 g/dL (3.4-5.0); ALKALINE PHOSPHATASE 95 Units/L (46-116); ASPARTATE AMINO TRANSFERASE 24 Units/L (15-37); BLOOD UREA NITROGEN 12 mg/dL (7-18); CALCIUM 8.7 mg/dL (8.5-10.1); CARBON DIOXIDE 33.7 mmol/L (21-32); CHLORIDE 105 mmol/L (98-107); COR NA(FOR HYPERGLY) 151 mmol/L (136-145); CREATININE 0.44 mg/dL (0.55-1.02); SODIUM 146 mmol/L (136-145); TOTAL PROTEIN 6.1 g/dL (6.4-8.2); eGFR NON BLACK RACES > 60 (>60)
[2020-11-16] MEDS: SOLU-Medrol 40 MG VIAL IVP SCH ×3 (05:37→21:08)
[2020-11-16] MEDS: HumuLIN R SUBCUT PRN ×2 (06:05→12:45)
[2020-11-16 06:14] LABS: BAND NEUTROPHILS % 3 % (0-10)
--- NOTE | 2020-11-16 06:14 | RAD ---
HISTORYSOB ventilatorSTUDYPortable AP [id number]/07/2021FINDINGSContinu ed normal heart size and contour with similar and stable position of tracheostomy and NG tube. Persistent bilateral infiltrates without progression or improvement. No pneumothorax seen.IMPRESSIONNo change in appearance of the chest.Electronically signed by: ROSA HSU (Nov 16, 2020 06:12:40)
[2020-11-16 06:15] LABS: ANISOCYTOSIS SLIGHT; PLATELET MORPHOLOGY COMMENT NORMAL (NORMAL)
[2020-11-16] MEDS: K-RIDER 10 MEQ/NS 100 ML 10 MEQ/100 ML BAG IV PRN ×3 (06:25→20:45)
[2020-11-16] MEDS ORDERED: NS 1/2 1000 ML IV 1,000 ML IV ONE (08:19)
[2020-11-16] MEDS: ZEMURON 100 MG VIAL 500 MG in NS 500 ML IV 450 ML IV PRN ×2 (08:40→20:45)
[2020-11-16] MEDS ORDERED: LASIX IVP SCH (09:00)
[2020-11-16] MEDS: BROVANA IN SCH ×2 (09:05→20:27)
[2020-11-16] MEDS: PULMICORT NEB TX 0.5 MG NEB SCH ×2 (09:05→20:27)
[2020-11-16] MEDS: NS 1/2 1000 ML IV 1,000 ML IV SCH ×2 (09:08→20:54)
[2020-11-16] MEDS: ALBUMIN HUMAN 25%- 100 ML 100 ML IV SCH (09:09)
[2020-11-16] MEDS: THIAMINE HCL INJ IVP SCH ×2 (09:11→20:55)
[2020-11-16] MEDS: VITAMIN D3 125 mcg (5,000 UNITS) NG SCH (09:11)
[2020-11-16] MEDS: PROTONIX INJ 40 MG VIAL IVP SCH (09:11)
[2020-11-16] MEDS: NYSTATIN CREAM TOP SCH ×2 (09:12→20:55)
[2020-11-16] MEDS: MILK OF MAGNESIA NG SCH ×2 (09:12→20:54)
[2020-11-16] MEDS: NYSTATIN POWDER TOP SCH ×2 (09:12→20:55)
[2020-11-16] MEDS: INVANZ INJ 1 GM VIAL 1 GM in NS 100 ML IV + SPIKE MINIBAG* 100 ML IV SCH (09:13)
[2020-11-16] MEDS: BUTT CREAM (COMPOUND) TOP SCH ×2 (09:14→20:53)
[2020-11-16] MEDS: DIFLUCAN 200 MG IV PREMIX* 200 MG/100 ML BAG IV SCH (09:14)
[2020-11-16] MEDS: DIAMOX PO SCH (09:15)
[2020-11-16] MEDS ORDERED: APRESOLINE INJ 20 MG VIAL ONE (09:57)
[2020-11-16] MEDS: VERSED 100 MG in NS 100 ML IV 80 ML IV PRN ×2 (12:32→21:01)
[2020-11-16] MEDS: ELIQUIS NG SCH ×2 (13:00→20:54)
[2020-11-16] MEDS ORDERED: LOPRESSOR INJ 5 MG AMP ONE (16:47)
[2020-11-16] MEDS: LOPRESSOR INJ 5 MG AMP IVP PRN ×2 (16:52→16:54)
[2020-11-16] MEDS: SNACK - Diabetic Appropriate PO SCH (20:52)
[2020-11-17] MEDS: HumuLIN R SUBCUT PRN ×3 (00:50→17:11)
[2020-11-17] MEDS: DIPRIVAN PREMIX 1 GRAM IV 1,000 MG/100 ML VIAL IV PRN ×4 (01:34→20:30)
[2020-11-17] MEDS: ACCUNEB 1.25 MG NEBULE NEB SCH ×4 (04:55→21:30)
[2020-11-17 05:02] LABS: ABG BASE EXCESS 13.5 mmol/L (-2.0-2.0)
[2020-11-17 05:04] LABS: ABG HCO3 40.1 mmol/L (22-26)
[2020-11-17 05:25] LABS: BASOPHILS % (AUTO) 0.1 % (0.2-1.0); HEMATOCRIT 35.1 % (36.0-47.0); HEMOGLOBIN 11.8 g/dL (12.0-16.0); LYMPHOCYTES # (AUTO) 0.5 X10^3/uL (1.3-2.9); LYMPHOCYTES % (AUTO) 6.1 % (21.0-51.0); MEAN CORPUSCULAR HEMOGLOBIN 32.6 pg (27.0-34.0); MEAN CORPUSCULAR HGB CONC 33.7 g/dL (33.0-35.0); MEAN CORPUSCULAR VOLUME 96.7 fL (80.0-100.0); MEAN PLATELET VOLUME 9.1 fL (7.4-11.0); MONOCYTES # (AUTO) 0.5 x10^3/uL (0.3-0.8); MONOCYTES % (AUTO) 6.2 % (0.0-13.0); NEUTROPHILS # (AUTO) 6.5 x10^3/uL (2.2-4.8); NEUTROPHILS % (AUTO) 87.6 % (42.0-75.0); PLATELET COUNT 236 X10^3/uL (150.0-450.0); RED BLOOD COUNT 3.63 X10^6/uL (3.5-5.4); RED CELL DISTRIBUTION WIDTH 18.7 % (11.6-16.5); WHITE BLOOD COUNT 7.4 X10^3/uL (3.6-10.0)
[2020-11-17 05:33] LABS: ALANINE AMINOTRANSFERASE 56 Units/L (12-78); ALKALINE PHOSPHATASE 97 Units/L (46-116); ASPARTATE AMINO TRANSFERASE 19 Units/L (15-37); BLOOD UREA NITROGEN 12 mg/dL (7-18); CALCIUM 8.6 mg/dL (8.5-10.1); CARBON DIOXIDE 35.1 mmol/L (21-32); CHLORIDE 105 mmol/L (98-107); COR NA(FOR HYPERGLY) 150 mmol/L (136-145); CREATININE 0.35 mg/dL (0.55-1.02); MAGNESIUM 3.2 mg/dL (1.7-2.9); SODIUM 145 mmol/L (136-145); TOTAL PROTEIN 6.1 g/dL (6.4-8.2); eGFR NON BLACK RACES > 60 (>60)
[2020-11-17] MEDS: K-RIDER 10 MEQ/NS 100 ML 10 MEQ/100 ML BAG IV PRN ×3 (06:00→12:25)
[2020-11-17] MEDS: SOLU-Medrol 40 MG VIAL IVP SCH ×3 (06:00→21:13)
[2020-11-17 06:13] LABS: BAND NEUTROPHILS % 9 % (0-10); PLATELET MORPHOLOGY COMMENT NORMAL (NORMAL)
[2020-11-17 06:14] LABS: ANISOCYTOSIS SLIGHT; STOMATOCYTES PRESENT
--- NOTE | 2020-11-17 06:37 | RAD ---
HISTORYSOBSTUDYPortable AP [id number]/2020FINDINGSContinu ed normal heart size. There is slight progression of bilateral confluent airspace disease in the lower lungs. There is now noted a right pneumothorax, extending from apex to diaphragm and estimated at 30 percent. Slight tension effect is suggested; heart and mediastinum may be minimally displaced to the left. Stable position of support lines.IMPRESSION1. Interval development of significant right pneumothorax.2. Increasing bilateral pneumonia.Electronically signed by: ROSA HSU (Nov 17, 2020 06:35:31)
[2020-11-17] MEDS ORDERED: INVANZ INJ 1 GM VIAL ONE (08:07)
[2020-11-17] MEDS: INVANZ INJ 1 GM VIAL 1 GM in NS 100 ML IV + SPIKE MINIBAG* 100 ML IV SCH (08:15)
[2020-11-17] MEDS: DIAMOX PO SCH (08:35)
[2020-11-17] MEDS: MILK OF MAGNESIA NG SCH ×2 (08:36→21:05)
[2020-11-17] MEDS: PROTONIX INJ 40 MG VIAL IVP SCH (08:36)
[2020-11-17] MEDS: THIAMINE HCL INJ IVP SCH ×2 (08:36→21:13)
[2020-11-17] MEDS: NYSTATIN CREAM TOP SCH ×2 (08:36→21:12)
[2020-11-17] MEDS: VITAMIN D3 125 mcg (5,000 UNITS) NG SCH (08:36)
[2020-11-17] MEDS: NYSTATIN POWDER TOP SCH ×2 (08:36→21:13)
[2020-11-17] MEDS: ELIQUIS NG SCH ×2 (08:37→21:03)
[2020-11-17] MEDS: BUTT CREAM (COMPOUND) TOP SCH ×2 (08:37→21:03)
[2020-11-17] MEDS: BROVANA IN SCH ×2 (09:00→21:30)
[2020-11-17] MEDS: ALBUMIN HUMAN 25%- 100 ML 100 ML IV SCH (09:00)
[2020-11-17] MEDS: PULMICORT NEB TX 0.5 MG NEB SCH ×2 (09:00→21:30)
[2020-11-17] MEDS: VERSED 100 MG in NS 100 ML IV 80 ML IV PRN (09:15)
[2020-11-17] MEDS: DIFLUCAN 200 MG IV PREMIX* 200 MG/100 ML BAG IV SCH (10:00)
[2020-11-17] MEDS: ZEMURON 100 MG VIAL 500 MG in NS 500 ML IV 450 ML IV PRN (10:00)
--- NOTE | 2020-11-17 11:04 | DR.PROGNOT ---
Hospital Progress Notes - Progress Note for Day of: Progress Note Date: 11/17/20 - Chief Complaint Chief Complaint: Pt developed RT pneumothorax about 30% . her VS and oxygenation are the same . - Past Medical Family Social History Past Med/Fam/Surg Hx: No changes since H&P Allergies: Allergies ibuprofen Adverse Reaction (Verified 10/06/20 20:57) abd pain - Review Of Systems ROS: No change since H&P - Vital Signs Vital Signs: Temperature 97.6 F Pulse Rate [Apical] 71 Pulse Rate [Left] 81 Pulse Rate 89 Respiratory Rate 30 Blood Pressure [Right Arm] 117/65 Blood Pressure [Left Arm] 147/90 Blood Pressure 114/63 O2 Sat by Pulse Oximetry 95 - Physical Exam Oriented: Unable to test Eyes: Normal Ear: Normal Nose: Normal Throat: Normal Respiratory: Generalized, Diminished Cardiovascular: Normal : Normal GI:Auscultation: Normal GI:Palpation: Normal GI: Tenderness: Normal Skin: Normal Musculoskeletal: Normal Psychiatric: Normal Mood Description: Anxious Affect: Anxious Speech Pattern: Artificially Ventilated - Laboratory and Diagnostics Result Diagrams: 11/17/20 04:29 11/17/20 04:29 Labs: 11/12/20 14:54 Sputum - Endotracheal Wash Sputum Culture - Final 11/12/20 14:54 Sputum - Endotracheal Wash - Final 11/11/20 14:05 Urine,Catheterized Urine Culture - Preliminary 10/24/20 20:55 Sputum - Endotracheal Wash Sputum Culture - Final 10/24/20 20:55 Sputum - Endotracheal Wash - Final 10/07/20 11:51 Blood Blood Culture - Final 10/07/20 11:49 Blood Blood Culture - Final Laboratory WBC 7.4 X10^3/uL (3.6-10.0) 11/17/20 04:29 RBC 3.63 X10^6/uL (3.5-5.4) 11/17/20 04:29 Hgb 11.8 g/dL (12.0-16.0) L 11/17/20 04:29 Hct 35.1 % (36.0-47.0) L 11/17/20 04:29 MCV 96.7 fL (80.0-100.0) 11/17/20 04:29 MCH 32.6 pg (27.0-34.0) 11/17/20 04:29 MCHC 33.7 g/dL (33.0-35.0) 11/17/20 04:29 RDW 18.7 % (11.6-16.5) H 11/17/20 04:29 Plt Count 236 X10^3/uL (150.0-450.0) 11/17/20 04:29 Plt Count Comment Adequate (ADEQUATE) 11/17/20 04:29 MPV 9.1 fL (7.4-11.0) 11/17/20 04:29 Neut % (Auto) 87.6 % (42.0-75.0) H 11/17/20 04:29 Lymph % (Auto) 6.1 % (21.0-51.0) L 11/17/20 04:29 [place] % (Auto) 6.2 % (0.0-13.0) 11/17/20 04:29 Eos % (Auto) 0.0 % (0.9-2.9) L 11/17/20 04:29 Baso % (Auto) 0.1 % (0.2-1.0) L 11/17/20 04:29 Neut # (Auto) 6.5 x10^3/uL (2.2-4.8) H 11/17/20 04:29 Lymph # (Auto) 0.5 X10^3/uL (1.3-2.9) L 11/17/20 04:29 [place] # (Auto) 0.5 x10^3/uL (0.3-0.8) 11/17/20 04:29 Eos # (Auto) 0.0 x10^3/uL (0.0-0.2) 11/17/20 04:29 Baso # (Auto) 0.0 X10^3/uL (0.0-0.1) 11/17/20 04:29 Absolute Nucleated RBC 0.1 /100WBC 11/17/20 04:29 Total Counted 100 11/17/20 04:29 Neutrophils % (Manual) 78 % (39-76) H 11/17/20 04:29 Band Neutrophils % 9 % (0-10) 11/17/20 04:29 Lymphocytes % (Manual) 9 % (13-43) L 11/17/20 04:29 Monocytes % (Manual) 4 % (4-9) 11/17/20 04:29 Eosinophils % (Manual) 1 % (0-6) 11/07/20 04:34 Basophils % (Manual) Cancelled 11/01/20 05:10 Metamyelocytes % Cancelled 11/01/20 05:10 Myelocytes % Cancelled 11/01/20 05:10 Promyelocytes % Cancelled 11/01/20 05:10 Nucleated RBCs Cancelled 11/01/20 05:10 Atypical Lymphocytes Cancelled 11/01/20 05:10 Blast Cells Cancelled 11/01/20 05:10 Smudge Cells Cancelled 11/01/20 05:10 Toxic Granulation Cancelled 11/01/20 05:10 Dohle Bodies Cancelled 11/01/20 05:10 Gutierrez Rods Cancelled 11/01/20 05:10 Plt Clumps, EDTA Cancelled 11/01/20 05:10 Giant Platelets Cancelled 11/01/20 05:10 Plt Morphology Comment Normal (NORMAL) 11/17/20 04:29 RBC Morphology Abnormal (NORMAL) A 11/17/20 04:29 Dimorphic RBCs Cancelled 11/01/20 05:10 Polychromasia Cancelled 11/01/20 05:10 Hypochromasia Slight A 11/07/20 04:34 Poikilocytosis Cancelled 11/01/20 05:10 Basophilic Stippling Cancelled 11/01/20 05:10 Anisocytosis Slight A 11/17/20 04:29 Microcytosis Cancelled 11/01/20 05:10 Macrocytosis Slight A 11/07/20 04:34 Spherocytes Cancelled 11/01/20 05:10 Pappenheimer Bodies Cancelled 11/01/20 05:10 Sickle Cells Cancelled 11/01/20 05:10 Target Cells Cancelled 11/01/20 05:10 Tear Drop Cells Cancelled 11/01/20 05:10 Ovalocytes Cancelled 11/01/20 05:10 Stomatocytes Present 11/17/20 04:29 Helmet Cells Cancelled 11/01/20 05:10 [place] Bodies Cancelled 11/01/20 05:10 [place] Rings Cancelled 11/01/20 05:10 [place] Cells Cancelled 11/01/20 05:10 Crenated Cell Cancelled 11/01/20 05:10 Acanthocytes (Spur) Cancelled 11/01/20 05:10 Rouleaux Cancelled 11/01/20 05:10 Schistocytes Cancelled 11/01/20 05:10 PT 15.7 SECONDS (11.8-14.3) 11/06/20 04:27 INR Target Range - 11/06/20 04:27 INR 1.31 (0.8-1.3) H 11/06/20 04:27 D-Dimer 1.01 ug/ml (0.0-0.57) H* 11/13/20 04:04 Sample Site Art-line 11/17/20 05:00 ABG pH 7.440 (7.35-7.45) 11/17/20 05:00 ABG pCO2 59.0 mmHg (35.0-45.0) H* 11/17/20 05:00 ABG pO2 78.0 mmHg (80.0-100.0) L 11/17/20 05:00 ABG HCO3 40.1 mmol/L (22-26) H* 11/17/20 05:00 ABG O2 Saturation 96.0 % (90-100) 11/17/20 05:00 ABG Base Excess 13.5 mmol/L (-2.0-2.0) H 11/17/20 05:00 Loyd Test Na 11/17/20 05:00 A-a Gradient 561.0 mmHg 11/17/20 05:00 FiO2 100.0 11/17/20 05:00 Blood Gas Comments Coby well-mtf 11/17/20 05:00 Sodium 145 mmol/L (136-145) 11/17/20 04:29 Corrected Sodium 150 mmol/L (136-145) H 11/17/20 04:29 Potassium 3.2 mmol/L (3.5-5.1) L 11/17/20 04:29 Chloride 105 mmol/L (98-107) 11/17/20 04:29 Carbon Dioxide 35.1 mmol/L (21-32) H 11/17/20 04:29 BUN 12 mg/dL (7-18) 11/17/20 04:29 Creatinine 0.35 mg/dL (0.55-1.02) L 11/17/20 04:29 Est GFR (MDRD) Af Amer > 60 (>60) 11/17/20 04:29 Est GFR (MDRD) Non-Af > 60 (>60) 11/17/20 04:29 Glucose 316 mg/dL (65-99) H 11/17/20 04:29 POC Glucose (mg/dL) 304 mg/dL (65-99) H 11/17/20 09:13 Calcium 8.6 mg/dL (8.5-10.1) 11/17/20 04:29 Corrected Calcium TNP 11/17/20 04:29 Phosphorus 2.2 mg/dL (2.6-4.7) L 11/01/20 05:10 Magnesium 3.2 mg/dL (1.7-2.9) H 11/17/20 04:29 Ferritin 531 ng/mL (8-252) H 10/12/20 05:33 Total Bilirubin 1.30 mg/dL (0.2-1.0) H 11/17/20 04:29 AST 19 Units/L (15-37) 11/17/20 04:29 ALT 56 Units/L (12-78) 11/17/20 04:29 Alkaline Phosphatase 97 Units/L (46-116) 11/17/20 04:29 Creatine Kinase 180 Units/L (26-192) 10/07/20 11:49 CK-MB (CK-2) < 1.0 ng/mL (0-4.0) 10/07/20 11:49 CK/CKMB % Calc 0.6 % (<4) 10/07/20 11:49 Troponin I < 0.02 ng/mL (0-1.5) 10/07/20 11:49 C-Reactive Protein 14.40 mg/L (0-3.0) H 11/13/20 04:04 B-Natriuretic Peptide 32.1 pg/mL (0-79) 11/13/20 04:04 Total Protein 6.1 g/dL (6.4-8.2) L 11/17/20 04:29 Albumin 4.0 g/dL (3.4-5.0) 11/17/20 04:29 Globulin 2.1 g/dL (2.5-4.5) L 11/17/20 04:29 Albumin/Globulin Ratio 1.9 Ratio (1.1-2.1) 11/17/20 04:29 Prealbumin 23.7 mg/dL (18-35.7) 11/08/20 03:40 Triglycerides 168 mg/dL (0-150) H 11/01/20 05:10 Specimen Type Catherized urine 11/11/20 14:05 Urine Color Yellow (YELLOW) 11/11/20 14:05 Urine Appearance Hazy (CLEAR) 11/11/20 14:05 Urine pH 7.0 (5.0 - 8.0) 11/11/20 14:05 Ur Specific [place] 1.015 (1.000-1.030) 11/11/20 14:05 Urine Protein 2+ (NEGATIVE) 11/11/20 14:05 Urine Glucose (UA) Negative (NEGATIVE) 11/11/20 14:05 Urine Ketones Negative (NEGATIVE) 11/11/20 14:05 Urine Occult Blood 5+ (NEGATIVE) 11/11/20 14:05 Urine Nitrite Negative (NEGATIVE) 11/11/20 14:05 Urine Bilirubin Negative (NEGATIVE) 11/11/20 14:05 Urine Urobilinogen Normal (NORMAL) 11/11/20 14:05 Ur Leukocyte Esterase 1+ (NEGATIVE) 11/11/20 14:05 Urine RBC Tntc /HPF (0-3) A 11/11/20 14:05 Urine WBC 10-20 /HPF (0-5) A 11/11/20 14:05 Ur Squamous Epith Cells Negative /HPF (NEGATIVE) 11/11/20 14:05 Ur Renal Epithelial Cell Rare /HPF (NEGATIVE) 11/11/20 14:05 Urine Bacteria 1+ /HPF (NEGATIVE) 11/11/20 14:05 Urine Yeast Many /HPF (NEGATIVE) 11/11/20 14:05 Ur Culture Indicated? Yes/culture set up 11/11/20 14:05 Resp Viral Panel (PCR) See scanned report 11/12/20 14:54 Blood Type A POSITIVE 11/08/20 10:20 Antibody Screen Negative 11/08/20 10:20 Crossmatch See Detail 11/08/20 10:20 - Assessment and Plan 2: recent pneumothorax . severe Covid lung disaease . chest tube is not needed now . to observe closely and reprat chest Xray this PM .. - Problem Patient Problems: Patient Problems COVID-19 (Acute) U07.1 Acute dehydration (Acute) E86.0 Insufficiency, respiratory, acute (Acute) R06.89 Bilateral interstitial pneumonia (Acute) J84.9 Other headache syndrome (Acute) G44.89 Pneumonia due to COVID-19 virus (Acute) U07.1, J12.82 Hypoxia (Acute) R09.02 ARDS (adult respiratory distress syndrome) (Acute) J80 Thrombocytopenia (Acute) D69.6 Anemia (Acute) D64.9
[2020-11-17] MEDS: D5W 1000 ML IV 1,000 ML IV SCH (11:57)
[2020-11-17] MEDS: LEVEMIR SC SCH ×2 (12:00→21:03)
--- NOTE | 2020-11-17 12:34 | PCM.PROG ---
Progress Note Progress Note for Day of Date of Exam: 11/17/20 Subjective Subjective: MS. RICHARDS WAS ADMITTED FOR TREATMENT OF COVID PNEUMONIA AND HYPOXIA. HX OBESITY, OTHERWISE, NO SIGNIFICANT PMH. SHE REMAINS IN THE INTENSIVE CARE UNIT. SHE WAS INTUBATED ON 10/24 DUE TO RESPIRATORY FAILURE. TRACHEOSTOMY WAS INSERTED ON 11/07. SHE RECEIVED TWO UNITS OF PRBC LAST WEEK. HER VENT SETTINGS THIS MORNING ARE: A/C, RATE 30, TIDAL VOLUME 400, PEEP 14, FI02 100. SATURATIONS HAVE BEEN 91-96% THROUGHOUT THE NIGHT. ON EXAMINATION, HEART IS REGULAR IN RATE AND RHYTHM. BILATERAL LUNGS ARE NOTED WITH DIMINISHED LUNG SOUNDS THROUGHOUT. ABDOMEN IS ROUND, SOFT, AND NON-TENDER WITH NORMAL BOWEL SOUNDS NOTED IN ALL QUADRANTS. HER VITALS THIS MORNING ARE: 98.0-100-30-92%-155/80. LABS WERE OBTAINED. ABNORMAL LAB VALUES INCLUDE THE FOLLOWING: RBC 3.27, HGB 10.8, HCT 32.0, PLT COUNT 123, SODIUM 146, POTASSIUM 3.2, CHLORIDE 108, CREATININE 0.37, GLUCOSE 300, TOTAL BILI 1.10, TOTAL PROTEIN 5.8. ABG REVEALED: PH 7.430, PC02 55.0, P02 67, HC03 36.5, 02 SAT 94, A-A GRADINET 577, FI02 100. URINE AND SPUTUM CULTURES PENDING. CHEST XRAY WAS OBTAINED AND REVEALED: Slight additional improvement in appearance of the pneumonia. WE CONSULTED WITH , COFFEE MAKER FROM [facility] YES TERDAY. HE REVIEWED PATIENTS CHART AND HAS BEEN FOLLOWING PATIENTS PROGRESS PERIODICALLY. HE HAS NO FURTHER RECOMMENDATIONS AND FEELS THAT DUE TO THE PATIENT HAVING NO MEANINGFUL IMPROVEMENT IN THE PAST MONTH, THAT WE SHOULD DISCUSSING WITH FAMILY WITHDRAWAL OF SUPPORT AND PALLIATIVE CARE. WE WILL DISCUSS WITH PATIENTS DAUGHTER. OTHERWISE, WE WILL CONTINUE WITH HER SEDATION, NEBULIZER TREATMENTS, ANTIBIOTICS, IV FLUIDS, STEROIDS, BLOOD GLUCOSE CONTROL, ENTERAL FEEDINGS AND CURRENT PLAN OF CARE. WE WILL FOLLOW UP WITH AM LABS, CHEST XRAY, ABG, AND CONTINUE TO MONITOR. TIME SPENT ON CLINICAL ASSESSMENT, REVIEWING LABS AND IMAGING, DECISION MAKING, AND DOCUMENTATION GREATER THAN 75 MINUTES. Past Medical Family Social History Past Med/Fam/Surg Hx: No changes since H&P Allergies: Allergies ibuprofen Adverse Reaction (Verified 10/06/20 20:57) abd pain Review of Systems ROS: No change since H&P Vital Signs and I&O's Vital Signs: Temperature 97.6 F Pulse Rate [Apical] 71 Pulse Rate [Left] 81 Pulse Rate 89 Respiratory Rate 30 Blood Pressure [Right Arm] 117/65 Blood Pressure [Left Arm] 147/90 Blood Pressure 114/63 O2 Sat by Pulse Oximetry 95 Intake and Output: Intake & Output 11/15/20 11/16/20 11/17/20 11/18/20 11:59 11:59 11:59 11:59 Intake Total 4622 / 4622 3600 / 3600 3470 / 3470 Output Total 1950 / 1949 3815 / 3815 4855 / 4855 Balance 2672 / 2672 -215 / -215 -1385 / -1385 Physical Exam Oriented: Unable to test Eyes: Normal Ear: Normal Nose: Normal Throat: Normal Respiratory: Generalized and Diminished Cardiovascular: Normal : Normal Auscultation: Bowel Sounds: Normal Tenderness: Normal Skin: Normal Musculoskeletal: Normal Psychiatric: Normal Mood Description: Anxious Affect: Anxious Speech Pattern: Artificially Ventilated Laboratory and Diagnostics Result Diagrams: 11/17/20 04:29 11/17/20 04:29 Labs: 11/12/20 14:54 Sputum - Endotracheal Wash Sputum Culture - Final 11/12/20 14:54 Sputum - Endotracheal Wash - Final 11/11/20 14:05 Urine,Catheterized Urine Culture - Preliminary 10/24/20 20:55 Sputum - Endotracheal Wash Sputum Culture - Final 10/24/20 20:55 Sputum - Endotracheal Wash - Final 10/07/20 11:51 Blood Blood Culture - Final 10/07/20 11:49 Blood Blood Culture - Final Laboratory WBC 7.4 X10^3/uL (3.6-10.0) 11/17/20 04:29 RBC 3.63 X10^6/uL (3.5-5.4) 11/17/20 04:29 Hgb 11.8 g/dL (12.0-16.0) L 11/17/20 04:29 Hct 35.1 % (36.0-47.0) L 11/17/20 04:29 MCV 96.7 fL (80.0-100.0) 11/17/20 04:29 MCH 32.6 pg (27.0-34.0) 11/17/20 04:29 MCHC 33.7 g/dL (33.0-35.0) 11/17/20 04:29 RDW 18.7 % (11.6-16.5) H 11/17/20 04:29 Plt Count 236 X10^3/uL (150.0-450.0) 11/17/20 04:29 Plt Count Comment Adequate (ADEQUATE) 11/17/20 04:29 MPV 9.1 fL (7.4-11.0) 11/17/20 04:29 Neut % (Auto) 87.6 % (42.0-75.0) H 11/17/20 04:29 Lymph % (Auto) 6.1 % (21.0-51.0) L 11/17/20 04:29 [place] % (Auto) 6.2 % (0.0-13.0) 11/17/20 04:29 Eos % (Auto) 0.0 % (0.9-2.9) L 11/17/20 04:29 Baso % (Auto) 0.1 % (0.2-1.0) L 11/17/20 04:29 Neut # (Auto) 6.5 x10^3/uL (2.2-4.8) H 11/17/20 04:29 Lymph # (Auto) 0.5 X10^3/uL (1.3-2.9) L 11/17/20 04:29 [place] # (Auto) 0.5 x10^3/uL (0.3-0.8) 11/17/20 04:29 Eos # (Auto) 0.0 x10^3/uL (0.0-0.2) 11/17/20 04:29 Baso # (Auto) 0.0 X10^3/uL (0.0-0.1) 11/17/20 04:29 Absolute Nucleated RBC 0.1 /100WBC 11/17/20 04:29 Total Counted 100 11/17/20 04:29 Neutrophils % (Manual) 78 % (39-76) H 11/17/20 04:29 Band Neutrophils % 9 % (0-10) 11/17/20 04:29 Lymphocytes % (Manual) 9 % (13-43) L 11/17/20 04:29 Monocytes % (Manual) 4 % (4-9) 11/17/20 04:29 Eosinophils % (Manual) 1 % (0-6) 11/07/20 04:34 Basophils % (Manual) Cancelled 11/01/20 05:10 Metamyelocytes % Cancelled 11/01/20 05:10 Myelocytes % Cancelled 11/01/20 05:10 Promyelocytes % Cancelled 11/01/20 05:10 Nucleated RBCs Cancelled 11/01/20 05:10 Atypical Lymphocytes Cancelled 11/01/20 05:10 Blast Cells Cancelled 11/01/20 05:10 Smudge Cells Cancelled 11/01/20 05:10 Toxic Granulation Cancelled 11/01/20 05:10 Dohle Bodies Cancelled 11/01/20 05:10 Gutierrez Rods Cancelled 11/01/20 05:10 Plt Clumps, EDTA Cancelled 11/01/20 05:10 Giant Platelets Cancelled 11/01/20 05:10 Plt Morphology Comment Normal (NORMAL) 11/17/20 04:29 RBC Morphology Abnormal (NORMAL) A 11/17/20 04:29 Dimorphic RBCs Cancelled 11/01/20 05:10 Polychromasia Cancelled 11/01/20 05:10 Hypochromasia Slight A 11/07/20 04:34 Poikilocytosis Cancelled 11/01/20 05:10 Basophilic Stippling Cancelled 11/01/20 05:10 Anisocytosis Slight A 11/17/20 04:29 Microcytosis Cancelled 11/01/20 05:10 Macrocytosis Slight A 11/07/20 04:34 Spherocytes Cancelled 11/01/20 05:10 Pappenheimer Bodies Cancelled 11/01/20 05:10 Sickle Cells Cancelled 11/01/20 05:10 Target Cells Cancelled 11/01/20 05:10 Tear Drop Cells Cancelled 11/01/20 05:10 Ovalocytes Cancelled 11/01/20 05:10 Stomatocytes Present 11/17/20 04:29 Helmet Cells Cancelled 11/01/20 05:10 [place] Bodies Cancelled 11/01/20 05:10 [place] Rings Cancelled 11/01/20 05:10 [place] Cells Cancelled 11/01/20 05:10 Crenated Cell Cancelled 11/01/20 05:10 Acanthocytes (Spur) Cancelled 11/01/20 05:10 Rouleaux Cancelled 11/01/20 05:10 Schistocytes Cancelled 11/01/20 05:10 PT 15.7 SECONDS (11.8-14.3) 11/06/20 04:27 INR Target Range - 11/06/20 04:27 INR 1.31 (0.8-1.3) H 11/06/20 04:27 D-Dimer 1.01 ug/ml (0.0-0.57) H* 11/13/20 04:04 Sample Site Art-line 11/17/20 05:00 ABG pH 7.440 (7.35-7.45) 11/17/20 05:00 ABG pCO2 59.0 mmHg (35.0-45.0) H* 11/17/20 05:00 ABG pO2 78.0 mmHg (80.0-100.0) L 11/17/20 05:00 ABG HCO3 40.1 mmol/L (22-26) H* 11/17/20 05:00 ABG O2 Saturation 96.0 % (90-100) 11/17/20 05:00 ABG Base Excess 13.5 mmol/L (-2.0-2.0) H 11/17/20 05:00 Loyd Test Na 11/17/20 05:00 A-a Gradient 561.0 mmHg 11/17/20 05:00 FiO2 100.0 11/17/20 05:00 Blood Gas Comments Coby well-mtf 11/17/20 05:00 Sodium 145 mmol/L (136-145) 11/17/20 04:29 Corrected Sodium 150 mmol/L (136-145) H 11/17/20 04:29 Potassium 3.2 mmol/L (3.5-5.1) L 11/17/20 04:29 Chloride 105 mmol/L (98-107) 11/17/20 04:29 Carbon Dioxide 35.1 mmol/L (21-32) H 11/17/20 04:29 BUN 12 mg/dL (7-18) 11/17/20 04:29 Creatinine 0.35 mg/dL (0.55-1.02) L 11/17/20 04:29 Est GFR (MDRD) Af Amer > 60 (>60) 11/17/20 04:29 Est GFR (MDRD) Non-Af > 60 (>60) 11/17/20 04:29 Glucose 316 mg/dL (65-99) H 11/17/20 04:29 POC Glucose (mg/dL) 304 mg/dL (65-99) H 11/17/20 09:13 Calcium 8.6 mg/dL (8.5-10.1) 11/17/20 04:29 Corrected Calcium TNP 11/17/20 04:29 Phosphorus 2.2 mg/dL (2.6-4.7) L 11/01/20 05:10 Magnesium 3.2 mg/dL (1.7-2.9) H 11/17/20 04:29 Ferritin 531 ng/mL (8-252) H 10/12/20 05:33 Total Bilirubin 1.30 mg/dL (0.2-1.0) H 11/17/20 04:29 AST 19 Units/L (15-37) 11/17/20 04:29 ALT 56 Units/L (12-78) 11/17/20 04:29 Alkaline Phosphatase 97 Units/L (46-116) 11/17/20 04:29 Creatine Kinase 180 Units/L (26-192) 10/07/20 11:49 CK-MB (CK-2) < 1.0 ng/mL (0-4.0) 10/07/20 11:49 CK/CKMB % Calc 0.6 % (<4) 10/07/20 11:49 Troponin I < 0.02 ng/mL (0-1.5) 10/07/20 11:49 C-Reactive Protein 14.40 mg/L (0-3.0) H 11/13/20 04:04 B-Natriuretic Peptide 32.1 pg/mL (0-79) 11/13/20 04:04 Total Protein 6.1 g/dL (6.4-8.2) L 11/17/20 04:29 Albumin 4.0 g/dL (3.4-5.0) 11/17/20 04:29 Globulin 2.1 g/dL (2.5-4.5) L 11/17/20 04:29 Albumin/Globulin Ratio 1.9 Ratio (1.1-2.1) 11/17/20 04:29 Prealbumin 23.7 mg/dL (18-35.7) 11/08/20 03:40 Triglycerides 168 mg/dL (0-150) H 11/01/20 05:10 Specimen Type Catherized urine 11/11/20 14:05 Urine Color Yellow (YELLOW) 11/11/20 14:05 Urine Appearance Hazy (CLEAR) 11/11/20 14:05 Urine pH 7.0 (5.0 - 8.0) 11/11/20 14:05 Ur Specific [place] 1.015 (1.000-1.030) 11/11/20 14:05 Urine Protein 2+ (NEGATIVE) 11/11/20 14:05 Urine Glucose (UA) Negative (NEGATIVE) 11/11/20 14:05 Urine Ketones Negative (NEGATIVE) 11/11/20 14:05 Urine Occult Blood 5+ (NEGATIVE) 11/11/20 14:05 Urine Nitrite Negative (NEGATIVE) 11/11/20 14:05 Urine Bilirubin Negative (NEGATIVE) 11/11/20 14:05 Urine Urobilinogen Normal (NORMAL) 11/11/20 14:05 Ur Leukocyte Esterase 1+ (NEGATIVE) 11/11/20 14:05 Urine RBC Tntc /HPF (0-3) A 11/11/20 14:05 Urine WBC 10-20 /HPF (0-5) A 11/11/20 14:05 Ur Squamous Epith Cells Negative /HPF (NEGATIVE) 11/11/20 14:05 Ur Renal Epithelial Cell Rare /HPF (NEGATIVE) 11/11/20 14:05 Urine Bacteria 1+ /HPF (NEGATIVE) 11/11/20 14:05 Urine Yeast Many /HPF (NEGATIVE) 11/11/20 14:05 Ur Culture Indicated? Yes/culture set up 11/11/20 14:05 Resp Viral Panel (PCR) See scanned report 11/12/20 14:54 Blood Type A POSITIVE 11/08/20 10:20 Antibody Screen Negative 11/08/20 10:20 Crossmatch See Detail 11/08/20 10:20 Radiology Reviewed: Yes Plan (1) Spontaneous pneumothorax: Status: Acute Plan: Consulted Gen Surgery for evaluation of a chest tube. (2) Pneumonia due to COVID-19 virus: Status: Acute Plan: MECHANICAL VENT, IV FLUIDS, DIAMOX 250MG PO DAILY, POTASSIUM AND MAGNESIUM REPLACEMENT, IV ANTIBIOTICS, IV STEROIDS, IV DIFLUCAN, NEBULIZER TREATMENTS, RESPIRATORY THERAPY, VERSED FOR SEDATION, ENTERAL NUTRITION, GLUCOSE MONITORING WITH SLIDING SCALE COVERAGE. (3) ARDS (adult respiratory distress syndrome): Status: Acute (4) Hypoxia: Status: Acute Narrative Support Text: No improvement since yesterday. Plan: Ween down FiO2 as tolerated by patient. (5) Thrombocytopenia: Status: Acute Narrative Support Text: Platelets normalized this am. Plan: Monitor platelets. (6) Anemia: Status: Acute Qualifiers: Anemia type: iron deficiency Iron deficiency anemia type: chronic blood loss Qualified Code(s): D50.0 - Iron deficiency anemia secondary to blood loss (chronic) Narrative Support Text: Stable. Plan: Monitor Hb.
[2020-11-17] MEDS ORDERED: SNACK - Diabetic Appropriate PO SCH ×2 (20:00)
[2020-11-17] MEDS: SNACK - Diabetic Appropriate PO SCH (20:51)
[2020-11-18] MEDS: DIPRIVAN PREMIX 1 GRAM IV 1,000 MG/100 ML VIAL IV PRN ×5 (00:30→20:41)
[2020-11-18] MEDS: D5W 1000 ML IV 1,000 ML IV SCH ×2 (01:25→16:49)
[2020-11-18] MEDS: HumuLIN R SUBCUT PRN ×3 (01:30→17:05)
[2020-11-18] MEDS: ZEMURON 100 MG VIAL 500 MG in NS 500 ML IV 450 ML IV PRN ×2 (02:15→16:40)
[2020-11-18] MEDS: LOPRESSOR INJ 5 MG AMP IVP PRN (03:05)
[2020-11-18 04:37] LABS: ABG BASE EXCESS 11.4 mmol/L (-2.0-2.0)
[2020-11-18 04:38] LABS: ABG HCO3 37.8 mmol/L (22-26)
[2020-11-18] MEDS: ACCUNEB 1.25 MG NEBULE NEB SCH ×3 (04:50→20:10)
[2020-11-18] MEDS: VERSED IV PREMIX 100 MG/100 ML IV.SOLN IV PRN ×2 (05:15→16:40)
[2020-11-18 06:04] LABS: BASOPHILS % (AUTO) 0.1 % (0.2-1.0); HEMATOCRIT 32.4 % (36.0-47.0); HEMOGLOBIN 11.2 g/dL (12.0-16.0); LYMPHOCYTES # (AUTO) 0.5 X10^3/uL (1.3-2.9); MEAN CORPUSCULAR HEMOGLOBIN 33.6 pg (27.0-34.0); MEAN CORPUSCULAR HGB CONC 34.5 g/dL (33.0-35.0); MEAN CORPUSCULAR VOLUME 97.3 fL (80.0-100.0); MEAN PLATELET VOLUME 9.2 fL (7.4-11.0); MONOCYTES # (AUTO) 0.5 x10^3/uL (0.3-0.8); MONOCYTES % (AUTO) 6.2 % (0.0-13.0); NEUTROPHILS # (AUTO) 6.9 x10^3/uL (2.2-4.8); NEUTROPHILS % (AUTO) 87.7 % (42.0-75.0); PLATELET COUNT 230 X10^3/uL (150.0-450.0); RED BLOOD COUNT 3.33 X10^6/uL (3.5-5.4); RED CELL DISTRIBUTION WIDTH 18.9 % (11.6-16.5); WHITE BLOOD COUNT 7.9 X10^3/uL (3.6-10.0)
[2020-11-18 06:10] LABS: ALANINE AMINOTRANSFERASE 50 Units/L (12-78); ALBUMIN 3.8 g/dL (3.4-5.0); ALKALINE PHOSPHATASE 90 Units/L (46-116); ASPARTATE AMINO TRANSFERASE 17 Units/L (15-37); BLOOD UREA NITROGEN 11 mg/dL (7-18); CALCIUM 8.7 mg/dL (8.5-10.1); CHLORIDE 106 mmol/L (98-107); COR NA(FOR HYPERGLY) 151 mmol/L (136-145); CREATININE 0.29 mg/dL (0.55-1.02); SODIUM 145 mmol/L (136-145); TOTAL PROTEIN 5.9 g/dL (6.4-8.2); eGFR NON BLACK RACES > 60 (>60)
[2020-11-18] MEDS: SOLU-Medrol 40 MG VIAL IVP SCH ×3 (06:10→21:08)
[2020-11-18] MEDS: K-RIDER 10 MEQ/NS 100 ML 10 MEQ/100 ML BAG IV PRN (06:41)
[2020-11-18 07:20] LABS: BAND NEUTROPHILS % 5 % (0-10)
[2020-11-18 07:21] LABS: ANISOCYTOSIS SLIGHT; PLATELET MORPHOLOGY COMMENT NORMAL (NORMAL); STOMATOCYTES PRESENT
--- NOTE | 2020-11-18 08:09 | RAD ---
HISTORYCOVID-19STUDYCHEST, 1 [id number] cardiomediastinal silhouette is stable. Tracheostomy and enteric tube unchanged. Similar bilateral airspace opacities. No definite pneumothorax. The bony thorax appears intact.IMPRESSIONInterval resolution of right-sided pneumothorax.Otherwise, no significant change.Electronically signed by: EDUIN LOPEZ (Nov 18, 2020 08:07:39)
[2020-11-18] MEDS: BROVANA IN SCH ×2 (08:10→20:10)
[2020-11-18] MEDS: PULMICORT NEB TX 0.5 MG NEB SCH ×2 (08:10→20:10)
[2020-11-18] MEDS: ALBUMIN HUMAN 25%- 100 ML 100 ML IV SCH (08:17)
[2020-11-18] MEDS: DIFLUCAN 200 MG IV PREMIX* 200 MG/100 ML BAG IV SCH (08:17)
[2020-11-18] MEDS: INVANZ INJ 1 GM VIAL 1 GM in NS 100 ML IV + SPIKE MINIBAG* 100 ML IV SCH (08:18)
[2020-11-18] MEDS: NYSTATIN POWDER TOP SCH ×2 (08:19→20:28)
[2020-11-18] MEDS: DIAMOX PO SCH (08:19)
[2020-11-18] MEDS: NYSTATIN CREAM TOP SCH ×2 (08:19→20:28)
[2020-11-18] MEDS: THIAMINE HCL INJ IVP SCH ×2 (08:19→20:28)
[2020-11-18] MEDS: ELIQUIS NG SCH ×2 (08:19→20:27)
[2020-11-18] MEDS: PROTONIX INJ 40 MG VIAL IVP SCH (08:20)
[2020-11-18] MEDS: VITAMIN D3 125 mcg (5,000 UNITS) NG SCH (08:20)
[2020-11-18] MEDS: BUTT CREAM (COMPOUND) TOP SCH ×2 (08:48→20:27)
[2020-11-18] MEDS: LEVEMIR SC SCH ×3 (08:48→20:43)
[2020-11-18] MEDS: MILK OF MAGNESIA NG SCH ×2 (11:40→20:27)
--- NOTE | 2020-11-18 13:47 | PCM.PROG ---
Progress Note Progress Note for Day of Date of Exam: 11/18/20 Subjective Subjective: MS. RICHARDS WAS ADMITTED FOR TREATMENT OF COVID PNEUMONIA AND HYPOXIA. HX OBESITY, OTHERWISE, NO SIGNIFICANT PMH. SHE REMAINS IN THE INTENSIVE CARE UNIT. SHE WAS INTUBATED ON 10/24 DUE TO RESPIRATORY FAILURE. TRACHEOSTOMY WAS INSERTED ON 11/07. SHE RECEIVED TWO UNITS OF PRBC LAST WEEK. HER VENT SETTINGS THIS MORNING ARE: A/C, RATE 30, TIDAL VOLUME 400, PEEP 14, FI02 100. SATURATIONS HAVE BEEN 91-96% THROUGHOUT THE NIGHT. ON EXAMINATION, HEART IS REGULAR IN RATE AND RHYTHM. BILATERAL LUNGS ARE NOTED WITH DIMINISHED LUNG SOUNDS THROUGHOUT. ABDOMEN IS ROUND, SOFT, AND NON-TENDER WITH NORMAL BOWEL SOUNDS NOTED IN ALL QUADRANTS. HER VITALS THIS MORNING ARE: 98.0-100-30-92%-155/80. LABS WERE OBTAINED. ABNORMAL LAB VALUES INCLUDE THE FOLLOWING: RBC 3.27, HGB 10.8, HCT 32.0, PLT COUNT 123, SODIUM 146, POTASSIUM 3.2, CHLORIDE 108, CREATININE 0.37, GLUCOSE 300, TOTAL BILI 1.10, TOTAL PROTEIN 5.8. ABG REVEALED: PH 7.430, PC02 55.0, P02 67, HC03 36.5, 02 SAT 94, A-A GRADINET 577, FI02 100. URINE AND SPUTUM CULTURES PENDING. CHEST XRAY WAS OBTAINED AND REVEALED: Slight additional improvement in appearance of the pneumonia. WE CONSULTED WITH , BRIAR WOOD SORTER FROM [facility] TER[facility]. HE REVIEWED PATIENTS CHART AND HAS BEEN FOLLOWING PATIENTS PROGRESS PERIODICALLY. HE HAS NO FURTHER RECOMMENDATIONS AND FEELS THAT DUE TO THE PATIENT HAVING NO MEANINGFUL IMPROVEMENT IN THE PAST MONTH, THAT WE SHOULD DISCUSSING WITH FAMILY WITHDRAWAL OF SUPPORT AND PALLIATIVE CARE. WE WILL DISCUSS WITH PATIENTS DAUGHTER. OTHERWISE, WE WILL CONTINUE WITH HER SEDATION, NEBULIZER TREATMENTS, ANTIBIOTICS, IV FLUIDS, STEROIDS, BLOOD GLUCOSE CONTROL, ENTERAL FEEDINGS AND CURRENT PLAN OF CARE. WE WILL FOLLOW UP WITH AM LABS, CHEST XRAY, ABG, AND CONTINUE TO MONITOR. TIME SPENT ON CLINICAL ASSESSMENT, REVIEWING LABS AND IMAGING, DECISION MAKING, AND DOCUMENTATION GREATER THAN 75 MINUTES. Past Medical Family Social History Past Med/Fam/Surg Hx: No changes since H&P Allergies: Allergies ibuprofen Adverse Reaction (Verified 10/06/20 20:57) abd pain Review of Systems ROS: No change since H&P Vital Signs and I&O's Vital Signs: Temperature 97.2 F Pulse Rate [Apical] 71 Pulse Rate [Left] 81 Pulse Rate 101 Respiratory Rate 30 Blood Pressure [Right Arm] 117/65 Blood Pressure [Left Arm] 147/90 Blood Pressure 152/79 O2 Sat by Pulse Oximetry 87 Intake and Output: Intake & Output 11/16/20 11/17/20 11/18/20 11/19/20 11:59 11:59 11:59 11:59 Intake Total 3600 / 3600 3470 / 3470 4854 / 4854 Output Total 3815 / 3815 4855 / 4855 3540 / 3540 Balance -215 / -215 -1385 / -1385 1314 / 1314 Physical Exam Oriented: Unable to test Eyes: Normal Respiratory: Generalized and Diminished Cardiovascular: Normal Auscultation: Bowel Sounds: Normal Tenderness: Normal Skin: Normal Psychiatric: Normal Mood Description: Anxious Affect: Anxious Speech Pattern: Artificially Ventilated Laboratory and Diagnostics Result Diagrams: 11/18/20 05:02 11/18/20 05:33 Labs: 11/12/20 14:54 Sputum - Endotracheal Wash Sputum Culture - Final 11/12/20 14:54 Sputum - Endotracheal Wash - Final 11/11/20 14:05 Urine,Catheterized Urine Culture - Preliminary 10/24/20 20:55 Sputum - Endotracheal Wash Sputum Culture - Final 10/24/20 20:55 Sputum - Endotracheal Wash - Final 10/07/20 11:51 Blood Blood Culture - Final 10/07/20 11:49 Blood Blood Culture - Final Laboratory WBC 7.9 X10^3/uL (3.6-10.0) 11/18/20 05:02 RBC 3.33 X10^6/uL (3.5-5.4) L 11/18/20 05:02 Hgb 11.2 g/dL (12.0-16.0) L 11/18/20 05:02 Hct 32.4 % (36.0-47.0) L 11/18/20 05:02 MCV 97.3 fL (80.0-100.0) 11/18/20 05:02 MCH 33.6 pg (27.0-34.0) 11/18/20 05:02 MCHC 34.5 g/dL (33.0-35.0) 11/18/20 05:02 RDW 18.9 % (11.6-16.5) H 11/18/20 05:02 Plt Count 230 X10^3/uL (150.0-450.0) 11/18/20 05:02 Plt Count Comment Adequate (ADEQUATE) 11/18/20 05:02 MPV 9.2 fL (7.4-11.0) 11/18/20 05:02 Neut % (Auto) 87.7 % (42.0-75.0) H 11/18/20 05:02 Lymph % (Auto) 6.0 % (21.0-51.0) L 11/18/20 05:02 [place] % (Auto) 6.2 % (0.0-13.0) 11/18/20 05:02 Eos % (Auto) 0.0 % (0.9-2.9) L 11/18/20 05:02 Baso % (Auto) 0.1 % (0.2-1.0) L 11/18/20 05:02 Neut # (Auto) 6.9 x10^3/uL (2.2-4.8) H 11/18/20 05:02 Lymph # (Auto) 0.5 X10^3/uL (1.3-2.9) L 11/18/20 05:02 [place] # (Auto) 0.5 x10^3/uL (0.3-0.8) 11/18/20 05:02 Eos # (Auto) 0.0 x10^3/uL (0.0-0.2) 11/18/20 05:02 Baso # (Auto) 0.0 X10^3/uL (0.0-0.1) 11/18/20 05:02 Absolute Nucleated RBC 0.2 /100WBC 11/18/20 05:02 Total Counted 100 11/18/20 05:02 Neutrophils % (Manual) 78 % (39-76) H 11/18/20 05:02 Band Neutrophils % 5 % (0-10) 11/18/20 05:02 Lymphocytes % (Manual) 10 % (13-43) L 11/18/20 05:02 Monocytes % (Manual) 7 % (4-9) 11/18/20 05:02 Eosinophils % (Manual) 1 % (0-6) 11/07/20 04:34 Basophils % (Manual) Cancelled 11/01/20 05:10 Metamyelocytes % Cancelled 11/01/20 05:10 Myelocytes % Cancelled 11/01/20 05:10 Promyelocytes % Cancelled 11/01/20 05:10 Nucleated RBCs Cancelled 11/01/20 05:10 Atypical Lymphocytes Cancelled 11/01/20 05:10 Blast Cells Cancelled 11/01/20 05:10 Smudge Cells Cancelled 11/01/20 05:10 Toxic Granulation Cancelled 11/01/20 05:10 Dohle Bodies Cancelled 11/01/20 05:10 Gutierrez Rods Cancelled 11/01/20 05:10 Plt Clumps, EDTA Cancelled 11/01/20 05:10 Giant Platelets Cancelled 11/01/20 05:10 Plt Morphology Comment Normal (NORMAL) 11/18/20 05:02 RBC Morphology Abnormal (NORMAL) A 11/18/20 05:02 Dimorphic RBCs Cancelled 11/01/20 05:10 Polychromasia Cancelled 11/01/20 05:10 Hypochromasia Slight A 11/07/20 04:34 Poikilocytosis Cancelled 11/01/20 05:10 Basophilic Stippling Cancelled 11/01/20 05:10 Anisocytosis Slight A 11/18/20 05:02 Microcytosis Cancelled 11/01/20 05:10 Macrocytosis Slight A 11/07/20 04:34 Spherocytes Cancelled 11/01/20 05:10 Pappenheimer Bodies Cancelled 11/01/20 05:10 Sickle Cells Cancelled 11/01/20 05:10 Target Cells Cancelled 11/01/20 05:10 Tear Drop Cells Cancelled 11/01/20 05:10 Ovalocytes Cancelled 11/01/20 05:10 Stomatocytes Present 11/18/20 05:02 Helmet Cells Cancelled 11/01/20 05:10 Florian-Sophia Bodies Cancelled 11/01/20 05:10 [place] Rings Cancelled 11/01/20 05:10 Viry Cells Cancelled 11/01/20 05:10 Crenated Cell Cancelled 11/01/20 05:10 Acanthocytes (Spur) Cancelled 11/01/20 05:10 Rouleaux Cancelled 11/01/20 05:10 Schistocytes Cancelled 11/01/20 05:10 PT 15.7 SECONDS (11.8-14.3) 11/06/20 04:27 INR Target Range - 11/06/20 04:27 INR 1.31 (0.8-1.3) H 11/06/20 04:27 D-Dimer 1.01 ug/ml (0.0-0.57) H* 11/13/20 04:04 Sample Site Art line 11/18/20 04:35 ABG pH 7.430 (7.35-7.45) 11/18/20 04:35 ABG pCO2 57.0 mmHg (35.0-45.0) H* 11/18/20 04:35 ABG pO2 54.0 mmHg (80.0-100.0) L 11/18/20 04:35 ABG HCO3 37.8 mmol/L (22-26) H* 11/18/20 04:35 ABG O2 Saturation 89.0 % (90-100) L 11/18/20 04:35 ABG Base Excess 11.4 mmol/L (-2.0-2.0) H 11/18/20 04:35 Loyd Test N/a 11/18/20 04:35 A-a Gradient 445.0 mmHg 11/18/20 04:35 FiO2 80.0 11/18/20 04:35 Blood Gas Comments Coby well mtf/mts 11/18/20 04:35 Sodium 145 mmol/L (136-145) 11/18/20 05:33 Corrected Sodium 151 mmol/L (136-145) H 11/18/20 05:33 Potassium 3.3 mmol/L (3.5-5.1) L 11/18/20 05:33 Chloride 106 mmol/L (98-107) 11/18/20 05:33 Carbon Dioxide 32.0 mmol/L (21-32) 11/18/20 05:33 BUN 11 mg/dL (7-18) 11/18/20 05:33 Creatinine 0.29 mg/dL (0.55-1.02) L 11/18/20 05:33 Est GFR (MDRD) Af Amer > 60 (>60) 11/18/20 05:33 Est GFR (MDRD) Non-Af > 60 (>60) 11/18/20 05:33 Glucose 348 mg/dL (65-99) H 11/18/20 05:33 POC Glucose (mg/dL) 345 mg/dL (65-99) H 11/18/20 08:46 Calcium 8.7 mg/dL (8.5-10.1) 11/18/20 05:33 Corrected Calcium TNP 11/18/20 05:33 Phosphorus 2.2 mg/dL (2.6-4.7) L 11/01/20 05:10 Magnesium 2.8 mg/dL (1.7-2.9) 11/18/20 05:02 Ferritin 531 ng/mL (8-252) H 10/12/20 05:33 Total Bilirubin 1.20 mg/dL (0.2-1.0) H 11/18/20 05:33 AST 17 Units/L (15-37) 11/18/20 05:33 ALT 50 Units/L (12-78) 11/18/20 05:33 Alkaline Phosphatase 90 Units/L (46-116) 11/18/20 05:33 Creatine Kinase 180 Units/L (26-192) 10/07/20 11:49 CK-MB (CK-2) < 1.0 ng/mL (0-4.0) 10/07/20 11:49 CK/CKMB % Calc 0.6 % (<4) 10/07/20 11:49 Troponin I < 0.02 ng/mL (0-1.5) 10/07/20 11:49 C-Reactive Protein 14.40 mg/L (0-3.0) H 11/13/20 04:04 B-Natriuretic Peptide 32.1 pg/mL (0-79) 11/13/20 04:04 Total Protein 5.9 g/dL (6.4-8.2) L 11/18/20 05:33 Albumin 3.8 g/dL (3.4-5.0) 11/18/20 05:33 Globulin 2.1 g/dL (2.5-4.5) L 11/18/20 05:33 Albumin/Globulin Ratio 1.8 Ratio (1.1-2.1) 11/18/20 05:33 Prealbumin 23.7 mg/dL (18-35.7) 11/08/20 03:40 Triglycerides 168 mg/dL (0-150) H 11/01/20 05:10 Specimen Type Catherized urine 11/11/20 14:05 Urine Color Yellow (YELLOW) 11/11/20 14:05 Urine Appearance Hazy (CLEAR) 11/11/20 14:05 Urine pH 7.0 (5.0 - 8.0) 11/11/20 14:05 Ur Specific [place] 1.015 (1.000-1.030) 11/11/20 14:05 Urine Protein 2+ (NEGATIVE) 11/11/20 14:05 Urine Glucose (UA) Negative (NEGATIVE) 11/11/20 14:05 Urine Ketones Negative (NEGATIVE) 11/11/20 14:05 Urine Occult Blood 5+ (NEGATIVE) 11/11/20 14:05 Urine Nitrite Negative (NEGATIVE) 11/11/20 14:05 Urine Bilirubin Negative (NEGATIVE) 11/11/20 14:05 Urine Urobilinogen Normal (NORMAL) 11/11/20 14:05 Ur Leukocyte Esterase 1+ (NEGATIVE) 11/11/20 14:05 Urine RBC Tntc /HPF (0-3) A 11/11/20 14:05 Urine WBC 10-20 /HPF (0-5) A 11/11/20 14:05 Ur Squamous Epith Cells Negative /HPF (NEGATIVE) 11/11/20 14:05 Ur Renal Epithelial Cell Rare /HPF (NEGATIVE) 11/11/20 14:05 Urine Bacteria 1+ /HPF (NEGATIVE) 11/11/20 14:05 Urine Yeast Many /HPF (NEGATIVE) 11/11/20 14:05 Ur Culture Indicated? Yes/culture set up 11/11/20 14:05 Resp Viral Panel (PCR) See scanned report 11/12/20 14:54 Blood Type A POSITIVE 11/08/20 10:20 Antibody Screen Negative 11/08/20 10:20 Crossmatch See Detail 11/08/20 10:20 Radiology Reviewed: Yes Plan (1) Spontaneous pneumothorax: Status: Acute Narrative Support Text: Resolved per cxr this am. Plan: Monitor CXR's. (2) Pneumonia due to COVID-19 virus: Status: Acute Plan: MECHANICAL VENT, IV FLUIDS, DIAMOX 250MG PO DAILY, POTASSIUM AND MAGNESIUM REPLACEMENT, IV ANTIBIOTICS, IV STEROIDS, IV DIFLUCAN, NEBULIZER TREATMENTS, RESPIRATORY THERAPY, VERSED FOR SEDATION, ENTERAL NUTRITION, GLUCOSE MONITORING WITH SLIDING SCALE COVERAGE. (3) ARDS (adult respiratory distress syndrome): Status: Acute (4) Hypoxia: Status: Acute Plan: Ween down FiO2 as tolerated by patient. (5) Thrombocytopenia: Status: Acute Plan: Monitor platelets. (6) Anemia: Status: Acute Qualifiers: Anemia type: iron deficiency Iron deficiency anemia type: chronic blood loss Qualified Code(s): D50.0 - Iron deficiency anemia secondary to blood loss (chronic) Narrative Support Text: Stable. Plan: Monitor Hb.
[2020-11-18] MEDS: POTASSIUM CHLORIDE LIQ 20 MEQ UDC PO PRN (14:39)
[2020-11-18] MEDS: SNACK - Diabetic Appropriate PO SCH (20:07)
[2020-11-19] MEDS: DIPRIVAN PREMIX 1 GRAM IV 1,000 MG/100 ML VIAL IV PRN ×5 (00:16→23:15)
[2020-11-19] MEDS: D5W 1000 ML IV 1,000 ML IV SCH ×2 (02:12→17:08)
[2020-11-19] MEDS: ACCUNEB 1.25 MG NEBULE NEB SCH ×3 (04:00→20:10)
[2020-11-19 04:08] LABS: ABG BASE EXCESS 13.3 mmol/L (-2.0-2.0)
[2020-11-19 04:09] LABS: ABG HCO3 40.9 mmol/L (22-26)
[2020-11-19 05:14] LABS: BASOPHILS % (AUTO) 0.2 % (0.2-1.0); HEMATOCRIT 33.5 % (36.0-47.0); HEMOGLOBIN 11.3 g/dL (12.0-16.0); LYMPHOCYTES # (AUTO) 0.5 X10^3/uL (1.3-2.9); LYMPHOCYTES % (AUTO) 5.1 % (21.0-51.0); MEAN CORPUSCULAR HEMOGLOBIN 33.1 pg (27.0-34.0); MEAN CORPUSCULAR HGB CONC 33.7 g/dL (33.0-35.0); MEAN CORPUSCULAR VOLUME 98.3 fL (80.0-100.0); MEAN PLATELET VOLUME 9.4 fL (7.4-11.0); MONOCYTES # (AUTO) 0.4 x10^3/uL (0.3-0.8); MONOCYTES % (AUTO) 4.4 % (0.0-13.0); NEUTROPHILS % (AUTO) 90.3 % (42.0-75.0); PLATELET COUNT 252 X10^3/uL (150.0-450.0); RED BLOOD COUNT 3.41 X10^6/uL (3.5-5.4); RED CELL DISTRIBUTION WIDTH 18.8 % (11.6-16.5)
[2020-11-19] MEDS ORDERED: NS 500 ML IV 500 ML IV ONE (05:23)
[2020-11-19 05:28] LABS: ALANINE AMINOTRANSFERASE 64 Units/L (12-78); ALBUMIN 3.9 g/dL (3.4-5.0); ALKALINE PHOSPHATASE 103 Units/L (46-116); ASPARTATE AMINO TRANSFERASE 29 Units/L (15-37); BLOOD UREA NITROGEN 10 mg/dL (7-18); CALCIUM 9.2 mg/dL (8.5-10.1); CARBON DIOXIDE 33.7 mmol/L (21-32); CHLORIDE 106 mmol/L (98-107); COR NA(FOR HYPERGLY) 150 mmol/L (136-145); CREATININE 0.31 mg/dL (0.55-1.02); SODIUM 144 mmol/L (136-145); TOTAL PROTEIN 6.1 g/dL (6.4-8.2); eGFR NON BLACK RACES > 60 (>60)
[2020-11-19] MEDS: SOLU-Medrol 40 MG VIAL IVP SCH ×3 (05:32→21:58)
[2020-11-19 05:56] LABS: BAND NEUTROPHILS % 3 % (0-10); PLATELET MORPHOLOGY COMMENT NORMAL (NORMAL)
[2020-11-19 05:57] LABS: ANISOCYTOSIS SLIGHT; STOMATOCYTES PRESENT
--- NOTE | 2020-11-19 06:49 | RAD ---
HISTORYFollow-up COVID-19STUDYChest AP [id number]/10/2021FINDINGSTher e is a tracheostomy tube in good position. There is a nasogastric tube in good position. Heart size remains normal. Diffuse bilateral interstitial and ground-glass infiltrates are unchanged. However there has been interval development of a 20-30 percent right pneumothorax when compared with the prior examination. There is no definite tension. No left pneumothorax is identified. No pleural effusions are identified. Bony thorax is unremarkable.IMPRESSIONNew 20-30 percent right pneumothoraxNo change bilateral interstitial and ground-glass infiltratesElectronically signed by: EDUIN LOPEZ (Nov 19, 2020 06:48:56)
[2020-11-19] MEDS: ZEMURON 100 MG VIAL 500 MG in NS 500 ML IV 450 ML IV PRN (08:52)
[2020-11-19] MEDS: NYSTATIN CREAM TOP SCH ×2 (09:30→21:57)
[2020-11-19] MEDS: BUTT CREAM (COMPOUND) TOP SCH ×2 (09:30→20:33)
[2020-11-19] MEDS: NYSTATIN POWDER TOP SCH ×2 (09:45→21:57)
[2020-11-19] MEDS: ELIQUIS NG SCH ×2 (09:45→20:33)
[2020-11-19] MEDS: PROTONIX INJ 40 MG VIAL IVP SCH (09:45)
[2020-11-19] MEDS: VITAMIN D3 125 mcg (5,000 UNITS) NG SCH (09:45)
[2020-11-19] MEDS: THIAMINE HCL INJ IVP SCH ×2 (09:45→21:57)
[2020-11-19] MEDS: LEVEMIR SC SCH ×2 (09:45→21:56)
[2020-11-19] MEDS: MILK OF MAGNESIA NG SCH ×2 (09:45→20:33)
[2020-11-19] MEDS: INVANZ INJ 1 GM VIAL 1 GM in NS 100 ML IV + SPIKE MINIBAG* 100 ML IV SCH (09:45)
[2020-11-19] MEDS: DIAMOX PO SCH (09:45)
[2020-11-19] MEDS: DIFLUCAN 200 MG IV PREMIX* 200 MG/100 ML BAG IV SCH (09:45)
[2020-11-19] MEDS: ALBUMIN HUMAN 25%- 100 ML 100 ML IV SCH (10:00)
[2020-11-19] MEDS: VERSED IV PREMIX 100 MG/100 ML IV.SOLN IV PRN (12:13)
[2020-11-19] MEDS: PULMICORT NEB TX 0.5 MG NEB SCH ×2 (14:00→20:10)
[2020-11-19] MEDS: BROVANA IN SCH ×2 (14:00→20:10)
[2020-11-19 18:38] LABS: ABG BASE EXCESS 10.9 mmol/L (-2.0-2.0)
[2020-11-19 18:39] LABS: ABG HCO3 38.5 mmol/L (22-26)
--- NOTE | 2020-11-19 19:35 | RAD ---
HISTORYHYPOXIASTUDYCHEST, 1 VIEWCOMPARISONOct2020 at 5:13 a.m.[facility], AP portable projection, 1 imageFINDINGSNo cardiomegaly.Diffuse bilateral airspace opacities; slightly increased on the left when compared to the previous exam.No pleural effusion.Right pneumothorax has increased from 20-30 percent to approximately 40 percent; without mediastinal shift.No acute osseous abnormality.Tracheostomy tube in place.Esophagogastric tube courses into the stomach with the distal tip not imaged.IMPRESSION1. Diffuse bilateral airspace opacities; slightly increased on the left when compared to the previous exam.2. Right pneumothorax has increased from 20-30 percent to approximately 40 percent; without mediastinal shift.Electronically signed by: Ge Wilson (Nov 19, 2020 19:33:19)
[2020-11-19] MEDS: SNACK - Diabetic Appropriate PO SCH (20:32)
[2020-11-19] MEDS ORDERED: STERILE WATER IRRIGATION IR ONE (21:15)
--- NOTE | 2020-11-19 22:14 | RAD ---
PROCEDURE: Chest X-ray 1 View .HISTORY: CHEST TUBE PLACEMENT .TECHNIQUE: AP view .COMPARISON: 11/19/2020 chest x-ray done at 6:50 p.m..TECHNICAL QUALITY: Satisfactory .FINDINGS:Chest tube on the right with the tip projected to the left of the mid to lower thoracic spine probably in a sulcus either anteriorly or posteriorly. Tracheostomy tube in good position. NG tube in the stomach.Normal size heart.Mediastinum and hilar regions show no masses or lymphadenopathy .Normal central vascularity .No pulmonary consolidation, masses, pleural fluid, or pneumothorax .No acute bony abnormality .IMPRESSION:1. Chest tube placement on the right with the tip to the left of the thoracic spine probably in a sulcus either anteriorly or posteriorly.2. No pneumothorax on the right.Electronically signed by: Jose Enrique Mcgregor (Nov 19, 2020 22:12:47)
[2020-11-20] MEDS: HumuLIN R SUBCUT PRN ×3 (00:03→16:26)
[2020-11-20] MEDS: ZEMURON 100 MG VIAL 500 MG in NS 500 ML IV 450 ML IV PRN (00:26)
[2020-11-20] MEDS: D5W 1000 ML IV 1,000 ML IV SCH ×2 (03:13→19:43)
[2020-11-20] MEDS: DIPRIVAN PREMIX 1 GRAM IV 1,000 MG/100 ML VIAL IV PRN (03:33)
[2020-11-20 04:19] LABS: ABG BASE EXCESS 13.7 mmol/L (-2.0-2.0)
[2020-11-20 04:20] LABS: ABG HCO3 40.9 mmol/L (22-26)
[2020-11-20] MEDS: SOLU-Medrol 40 MG VIAL IVP SCH ×3 (05:00→21:06)
[2020-11-20] MEDS: ACCUNEB 1.25 MG NEBULE NEB SCH ×3 (05:00→20:10)
[2020-11-20] MEDS: VERSED IV PREMIX 100 MG/100 ML IV.SOLN IV PRN (05:26)
[2020-11-20 05:47] LABS: ALANINE AMINOTRANSFERASE 67 Units/L (12-78); ALKALINE PHOSPHATASE 104 Units/L (46-116); ASPARTATE AMINO TRANSFERASE 36 Units/L (15-37); BLOOD UREA NITROGEN 11 mg/dL (7-18); CARBON DIOXIDE 35.7 mmol/L (21-32); CHLORIDE 105 mmol/L (98-107); COR NA(FOR HYPERGLY) 152 mmol/L (136-145); CREATININE 0.36 mg/dL (0.55-1.02); SODIUM 147 mmol/L (136-145); TOTAL PROTEIN 6.2 g/dL (6.4-8.2); eGFR NON BLACK RACES > 60 (>60)
--- NOTE | 2020-11-20 06:24 | RAD ---
HISTORYHypoxiaSTUDYChest AP [id number]/11/2021FINDINGSTher e is an endotracheal tube in good position. There is a nasogastric tube in good position. There is a right-sided chest tube in place. Heart size is normal. Jaqueline are normal. Diffuse bilateral interstitial lung changes are present stable when compared with the prior examination. No definite areas of consolidation identified. No pneumothorax identified. Bony thorax is unremarkable.IMPRESSIONNo change bilateral interstitial infiltratesNo definite residual or recurrent right pneumothoraxElectronically signed by: EDUIN LOPEZ (Nov 20, 2020 06:22:50)
[2020-11-20 06:29] LABS: BASOPHILS % (AUTO) 0.1 % (0.2-1.0); HEMATOCRIT 28.3 % (36.0-47.0); HEMOGLOBIN 9.6 g/dL (12.0-16.0); LYMPHOCYTES # (AUTO) 0.5 X10^3/uL (1.3-2.9); LYMPHOCYTES % (AUTO) 5.2 % (21.0-51.0); MEAN CORPUSCULAR HEMOGLOBIN 33.2 pg (27.0-34.0); MEAN CORPUSCULAR HGB CONC 34.1 g/dL (33.0-35.0); MEAN CORPUSCULAR VOLUME 97.5 fL (80.0-100.0); MEAN PLATELET VOLUME 9.2 fL (7.4-11.0); MONOCYTES # (AUTO) 0.4 x10^3/uL (0.3-0.8); NEUTROPHILS # (AUTO) 8.9 x10^3/uL (2.2-4.8); NEUTROPHILS % (AUTO) 90.7 % (42.0-75.0); PLATELET COUNT 220 X10^3/uL (150.0-450.0); RED CELL DISTRIBUTION WIDTH 19.1 % (11.6-16.5); WHITE BLOOD COUNT 9.8 X10^3/uL (3.6-10.0)
[2020-11-20 06:34] LABS: BAND NEUTROPHILS % 5 % (0-10); PLATELET MORPHOLOGY COMMENT NORMAL (NORMAL)
[2020-11-20 06:35] LABS: ANISOCYTOSIS SLIGHT; STOMATOCYTES PRESENT
--- NOTE | 2020-11-20 08:34 | DR.PROGNOT ---
Hospital Progress Notes - Progress Note for Day of: Progress Note Date: 11/20/20 - Chief Complaint Chief Complaint: s/p palcement RT chest tube . chest X Ray today showed complete expansion RT lung . O2 sat above 90 . no changes otherwise .. - Past Medical Family Social History Past Med/Fam/Surg Hx: No changes since H&P Allergies: Allergies ibuprofen Adverse Reaction (Verified 10/06/20 20:57) abd pain - Review Of Systems ROS: No change since H&P - Vital Signs Vital Signs: Temperature 98.0 F Pulse Rate [Apical] 71 Pulse Rate [Left] 81 Pulse Rate 99 Respiratory Rate 30 Blood Pressure [Right Arm] 117/65 Blood Pressure [Left Arm] 147/90 Blood Pressure 109/60 O2 Sat by Pulse Oximetry 95 - Physical Exam Oriented: Unable to test Eyes: Normal Ear: Normal Nose: Normal Throat: Normal Respiratory: Generalized, Diminished Cardiovascular: Normal : Normal GI:Auscultation: Normal GI:Palpation: Normal GI: Tenderness: Normal Skin: Normal Musculoskeletal: Normal Psychiatric: Normal Mood Description: Anxious Affect: Anxious Speech Pattern: Artificially Ventilated - Laboratory and Diagnostics Result Diagrams: 11/20/20 04:38 11/20/20 04:38 Labs: 11/11/20 14:05 Urine,Catheterized Urine Culture - Final 11/12/20 14:54 Sputum - Endotracheal Wash Sputum Culture - Final 11/12/20 14:54 Sputum - Endotracheal Wash - Final 10/24/20 20:55 Sputum - Endotracheal Wash Sputum Culture - Final 10/24/20 20:55 Sputum - Endotracheal Wash - Final 10/07/20 11:51 Blood Blood Culture - Final 10/07/20 11:49 Blood Blood Culture - Final Laboratory WBC 9.8 X10^3/uL (3.6-10.0) 11/20/20 04:38 RBC 2.90 X10^6/uL (3.5-5.4) L 11/20/20 04:38 Hgb 9.6 g/dL (12.0-16.0) L 11/20/20 04:38 Hct 28.3 % (36.0-47.0) L 11/20/20 04:38 MCV 97.5 fL (80.0-100.0) 11/20/20 04:38 MCH 33.2 pg (27.0-34.0) 11/20/20 04:38 MCHC 34.1 g/dL (33.0-35.0) 11/20/20 04:38 RDW 19.1 % (11.6-16.5) H 11/20/20 04:38 Plt Count 220 X10^3/uL (150.0-450.0) 11/20/20 04:38 Plt Count Comment Adequate (ADEQUATE) 11/20/20 04:38 MPV 9.2 fL (7.4-11.0) 11/20/20 04:38 Neut % (Auto) 90.7 % (42.0-75.0) H 11/20/20 04:38 Lymph % (Auto) 5.2 % (21.0-51.0) L 11/20/20 04:38 [place] % (Auto) 4.0 % (0.0-13.0) 11/20/20 04:38 Eos % (Auto) 0.0 % (0.9-2.9) L 11/20/20 04:38 Baso % (Auto) 0.1 % (0.2-1.0) L 11/20/20 04:38 Neut # (Auto) 8.9 x10^3/uL (2.2-4.8) H 11/20/20 04:38 Lymph # (Auto) 0.5 X10^3/uL (1.3-2.9) L 11/20/20 04:38 [place] # (Auto) 0.4 x10^3/uL (0.3-0.8) 11/20/20 04:38 Eos # (Auto) 0.0 x10^3/uL (0.0-0.2) 11/20/20 04:38 Baso # (Auto) 0.0 X10^3/uL (0.0-0.1) 11/20/20 04:38 Absolute Nucleated RBC 0.1 /100WBC 11/20/20 04:38 Total Counted 100 11/20/20 04:38 Neutrophils % (Manual) 78 % (39-76) H 11/20/20 04:38 Band Neutrophils % 5 % (0-10) 11/20/20 04:38 Lymphocytes % (Manual) 11 % (13-43) L 11/20/20 04:38 Monocytes % (Manual) 6 % (4-9) 11/20/20 04:38 Eosinophils % (Manual) 1 % (0-6) 11/07/20 04:34 Basophils % (Manual) Cancelled 11/01/20 05:10 Metamyelocytes % Cancelled 11/01/20 05:10 Myelocytes % Cancelled 11/01/20 05:10 Promyelocytes % Cancelled 11/01/20 05:10 Nucleated RBCs Cancelled 11/01/20 05:10 Atypical Lymphocytes Cancelled 11/01/20 05:10 Blast Cells Cancelled 11/01/20 05:10 Smudge Cells Cancelled 11/01/20 05:10 Toxic Granulation Cancelled 11/01/20 05:10 Dohle Bodies Cancelled 11/01/20 05:10 Gutierrez Rods Cancelled 11/01/20 05:10 Plt Clumps, EDTA Cancelled 11/01/20 05:10 Giant Platelets Cancelled 11/01/20 05:10 Plt Morphology Comment Normal (NORMAL) 11/20/20 04:38 RBC Morphology Abnormal (NORMAL) A 11/20/20 04:38 Dimorphic RBCs Cancelled 11/01/20 05:10 Polychromasia Cancelled 11/01/20 05:10 Hypochromasia Slight A 11/07/20 04:34 Poikilocytosis Cancelled 11/01/20 05:10 Basophilic Stippling Cancelled 11/01/20 05:10 Anisocytosis Slight A 11/20/20 04:38 Microcytosis Cancelled 11/01/20 05:10 Macrocytosis Slight A 11/07/20 04:34 Spherocytes Cancelled 11/01/20 05:10 Pappenheimer Bodies Cancelled 11/01/20 05:10 Sickle Cells Cancelled 11/01/20 05:10 Target Cells Cancelled 11/01/20 05:10 Tear Drop Cells Cancelled 11/01/20 05:10 Ovalocytes Cancelled 11/01/20 05:10 Stomatocytes Present 11/20/20 04:38 Helmet Cells Cancelled 11/01/20 05:10 Florian-Dibble Bodies Cancelled 11/01/20 05:10 [place] Rings Cancelled 11/01/20 05:10 [place] Cells Cancelled 11/01/20 05:10 Crenated Cell Cancelled 11/01/20 05:10 Acanthocytes (Spur) Cancelled 11/01/20 05:10 Rouleaux Cancelled 11/01/20 05:10 Schistocytes Cancelled 11/01/20 05:10 PT 15.7 SECONDS (11.8-14.3) 11/06/20 04:27 INR Target Range - 11/06/20 04:27 INR 1.31 (0.8-1.3) H 11/06/20 04:27 D-Dimer 1.01 ug/ml (0.0-0.57) H* 11/13/20 04:04 Sample Site Elin 11/20/20 04:13 ABG pH 7.420 (7.35-7.45) 11/20/20 04:13 ABG pCO2 63.0 mmHg (35.0-45.0) H* 11/20/20 04:13 ABG pO2 61.0 mmHg (80.0-100.0) L 11/20/20 04:13 ABG HCO3 40.9 mmol/L (22-26) H* 11/20/20 04:13 ABG O2 Saturation 91.0 % (90-100) 11/20/20 04:13 ABG Base Excess 13.7 mmol/L (-2.0-2.0) H 11/20/20 04:13 Loyd Test N/a 11/20/20 04:13 A-a Gradient 573.0 mmHg 11/20/20 04:13 FiO2 100.0 11/20/20 04:13 Blood Gas Comments Coby well ae 11/20/20 04:13 Sodium 147 mmol/L (136-145) H 11/20/20 04:38 Corrected Sodium 152 mmol/L (136-145) H 11/20/20 04:38 Potassium 3.9 mmol/L (3.5-5.1) 11/20/20 04:38 Chloride 105 mmol/L (98-107) 11/20/20 04:38 Carbon Dioxide 35.7 mmol/L (21-32) H 11/20/20 04:38 BUN 11 mg/dL (7-18) 11/20/20 04:38 Creatinine 0.36 mg/dL (0.55-1.02) L 11/20/20 04:38 Est GFR (MDRD) Af Amer > 60 (>60) 11/20/20 04:38 Est GFR (MDRD) Non-Af > 60 (>60) 11/20/20 04:38 Glucose 319 mg/dL (65-99) H 11/20/20 04:38 POC Glucose (mg/dL) 372 mg/dL (65-99) H 11/19/20 23:29 Calcium 9.0 mg/dL (8.5-10.1) 11/20/20 04:38 Corrected Calcium TNP 11/20/20 04:38 Phosphorus 2.2 mg/dL (2.6-4.7) L 11/01/20 05:10 Magnesium 2.8 mg/dL (1.7-2.9) 11/18/20 05:02 Ferritin 531 ng/mL (8-252) H 10/12/20 05:33 Total Bilirubin 1.40 mg/dL (0.2-1.0) H 11/20/20 04:38 AST 36 Units/L (15-37) 11/20/20 04:38 ALT 67 Units/L (12-78) 11/20/20 04:38 Alkaline Phosphatase 104 Units/L (46-116) 11/20/20 04:38 Creatine Kinase 180 Units/L (26-192) 10/07/20 11:49 CK-MB (CK-2) < 1.0 ng/mL (0-4.0) 10/07/20 11:49 CK/CKMB % Calc 0.6 % (<4) 10/07/20 11:49 Troponin I < 0.02 ng/mL (0-1.5) 10/07/20 11:49 C-Reactive Protein 14.40 mg/L (0-3.0) H 11/13/20 04:04 B-Natriuretic Peptide 32.1 pg/mL (0-79) 11/13/20 04:04 Total Protein 6.2 g/dL (6.4-8.2) L 11/20/20 04:38 Albumin 4.0 g/dL (3.4-5.0) 11/20/20 04:38 Globulin 2.2 g/dL (2.5-4.5) L 11/20/20 04:38 Albumin/Globulin Ratio 1.8 Ratio (1.1-2.1) 11/20/20 04:38 Prealbumin 23.7 mg/dL (18-35.7) 11/08/20 03:40 Triglycerides 168 mg/dL (0-150) H 11/01/20 05:10 Specimen Type Catherized urine 11/11/20 14:05 Urine Color Yellow (YELLOW) 11/11/20 14:05 Urine Appearance Hazy (CLEAR) 11/11/20 14:05 Urine pH 7.0 (5.0 - 8.0) 11/11/20 14:05 Ur Specific [place] 1.015 (1.000-1.030) 11/11/20 14:05 Urine Protein 2+ (NEGATIVE) 11/11/20 14:05 Urine Glucose (UA) Negative (NEGATIVE) 11/11/20 14:05 Urine Ketones Negative (NEGATIVE) 11/11/20 14:05 Urine Occult Blood 5+ (NEGATIVE) 11/11/20 14:05 Urine Nitrite Negative (NEGATIVE) 11/11/20 14:05 Urine Bilirubin Negative (NEGATIVE) 11/11/20 14:05 Urine Urobilinogen Normal (NORMAL) 11/11/20 14:05 Ur Leukocyte Esterase 1+ (NEGATIVE) 11/11/20 14:05 Urine RBC Tntc /HPF (0-3) A 11/11/20 14:05 Urine WBC 10-20 /HPF (0-5) A 11/11/20 14:05 Ur Squamous Epith Cells Negative /HPF (NEGATIVE) 11/11/20 14:05 Ur Renal Epithelial Cell Rare /HPF (NEGATIVE) 11/11/20 14:05 Urine Bacteria 1+ /HPF (NEGATIVE) 11/11/20 14:05 Urine Yeast Many /HPF (NEGATIVE) 11/11/20 14:05 Ur Culture Indicated? Yes/culture set up 11/11/20 14:05 Resp Viral Panel (PCR) See scanned report 11/12/20 14:54 Blood Type A POSITIVE 11/08/20 10:20 Antibody Screen Negative 11/08/20 10:20 Crossmatch See Detail 11/08/20 10:20 - Assessment and Plan 2: resolved RT pneumothorax with chest tube . . severe Covid lung disaease . same plan . - Problem Patient Problems: Patient Problems COVID-19 (Acute) U07.1 Acute dehydration (Acute) E86.0 Insufficiency, respiratory, acute (Acute) R06.89 Bilateral interstitial pneumonia (Acute) J84.9 Other headache syndrome (Acute) G44.89 Pneumonia due to COVID-19 virus (Acute) U07.1, J12.82 Hypoxia (Acute) R09.02 ARDS (adult respiratory distress syndrome) (Acute) J80 Thrombocytopenia (Acute) D69.6 Anemia (Acute) D64.9
[2020-11-20] MEDS: ALBUMIN HUMAN 25%- 100 ML 100 ML IV SCH (09:30)
[2020-11-20] MEDS: PULMICORT NEB TX 0.5 MG NEB SCH ×2 (09:30→20:10)
[2020-11-20] MEDS: BROVANA IN SCH ×2 (09:30→20:10)
[2020-11-20] MEDS: BUTT CREAM (COMPOUND) TOP SCH ×2 (09:33→20:23)
[2020-11-20] MEDS: DIAMOX PO SCH (09:33)
[2020-11-20] MEDS: INVANZ INJ 1 GM VIAL 1 GM in NS 100 ML IV + SPIKE MINIBAG* 100 ML IV SCH (09:34)
[2020-11-20] MEDS: DIFLUCAN 200 MG IV PREMIX* 200 MG/100 ML BAG IV SCH (09:34)
[2020-11-20] MEDS: ELIQUIS NG SCH ×2 (09:34→20:23)
[2020-11-20] MEDS: LEVEMIR SC SCH ×2 (09:35→20:24)
[2020-11-20] MEDS: NYSTATIN POWDER TOP SCH ×2 (09:35→20:24)
[2020-11-20] MEDS: NYSTATIN CREAM TOP SCH ×2 (09:35→20:24)
[2020-11-20] MEDS: VITAMIN D3 125 mcg (5,000 UNITS) NG SCH (09:36)
[2020-11-20] MEDS: THIAMINE HCL INJ IVP SCH ×2 (09:36→20:24)
[2020-11-20] MEDS: PROTONIX INJ 40 MG VIAL IVP SCH (09:36)
[2020-11-20] MEDS: MILK OF MAGNESIA NG SCH ×2 (12:35→20:24)
[2020-11-20] MEDS: NORMODYNE INJ 20 MG VIAL IV PRN ×5 (13:59→23:17)
--- NOTE | 2020-11-20 18:20 | RAD ---
KUBHISTORY: ng tube placementStudy: Single view of the upper abdomen.Comparison:NoneFindings:There is a NG tube terminating within the stomach.Bowel gas pattern is normal.IMPRESSION:1. NG tube terminating within the stomach.Electronically signed by: SILVIA WARD (Nov 20, 2020 18:18:16)
[2020-11-20] MEDS: SNACK - Diabetic Appropriate PO SCH (19:44)
[2020-11-20] MEDS: LOPRESSOR INJ 5 MG AMP IVP PRN (20:50)
[2020-11-21] MEDS: HumuLIN R SUBCUT PRN ×4 (00:06→21:00)
[2020-11-21] MEDS: MORPHINE SULFATE INJ 2 MG INJ IVP PRN (03:36)
[2020-11-21 04:45] LABS: ABG BASE EXCESS 15.3 mmol/L (-2.0-2.0)
[2020-11-21 04:46] LABS: ABG HCO3 41.5 mmol/L (22-26)
[2020-11-21] MEDS: ACCUNEB 1.25 MG NEBULE NEB SCH ×3 (05:09→20:10)
[2020-11-21] MEDS: SOLU-Medrol 40 MG VIAL IVP SCH ×3 (05:14→21:00)
[2020-11-21] MEDS: D5W 1000 ML IV 1,000 ML IV SCH ×2 (05:14→20:00)
[2020-11-21 05:28] LABS: BASOPHILS % (AUTO) 0.3 % (0.2-1.0); HEMATOCRIT 29.2 % (36.0-47.0); LYMPHOCYTES # (AUTO) 1.1 X10^3/uL (1.3-2.9); LYMPHOCYTES % (AUTO) 7.7 % (21.0-51.0); MEAN CORPUSCULAR HGB CONC 34.1 g/dL (33.0-35.0); MEAN CORPUSCULAR VOLUME 96.7 fL (80.0-100.0); MEAN PLATELET VOLUME 9.4 fL (7.4-11.0); MONOCYTES # (AUTO) 0.8 x10^3/uL (0.3-0.8); MONOCYTES % (AUTO) 5.1 % (0.0-13.0); NEUTROPHILS % (AUTO) 86.9 % (42.0-75.0); PLATELET COUNT 252 X10^3/uL (150.0-450.0); RED BLOOD COUNT 3.02 X10^6/uL (3.5-5.4); RED CELL DISTRIBUTION WIDTH 18.6 % (11.6-16.5); WHITE BLOOD COUNT 14.9 X10^3/uL (3.6-10.0)
[2020-11-21 05:34] LABS: ALANINE AMINOTRANSFERASE 114 Units/L (12-78); ALKALINE PHOSPHATASE 125 Units/L (46-116); ASPARTATE AMINO TRANSFERASE 81 Units/L (15-37); BLOOD UREA NITROGEN 13 mg/dL (7-18); CARBON DIOXIDE 38.7 mmol/L (21-32); CHLORIDE 103 mmol/L (98-107); COR NA(FOR HYPERGLY) 149 mmol/L (136-145); CREATININE 0.33 mg/dL (0.55-1.02); SODIUM 146 mmol/L (136-145); TOTAL PROTEIN 6.3 g/dL (6.4-8.2); eGFR NON BLACK RACES > 60 (>60)
[2020-11-21 05:54] LABS: ANISOCYTOSIS SLIGHT; BAND NEUTROPHILS % 3 % (0-10); PLATELET MORPHOLOGY COMMENT NORMAL (NORMAL)
--- NOTE | 2020-11-21 05:54 | RAD ---
PROCEDURE: Chest X-ray 1 View .HISTORY: Dyspnea.TECHNIQUE: AP view .COMPARISON: 11/20/2020.TECHNICAL QUALITY: Satisfactory .FINDINGS:Tracheostomy tubes in good position.Unremarkable cardio mediastinal silhouette.Normal central vascularity.Mild diffuse increased density right vicky thorax could be related to chest wall or rotation. Unchanged interstitial markings lung bases. No pleural fluid or pneumothorax.IMPRESSION:Stable chest.Electronically signed by: Jose Enrique Mcgregor (Nov 21, 2020 05:53:20)
[2020-11-21] MEDS: POTASSIUM CHLORIDE LIQ 20 MEQ UDC PO PRN (06:16)
[2020-11-21] MEDS: BROVANA IN SCH ×2 (09:40→20:10)
[2020-11-21] MEDS: PULMICORT NEB TX 0.5 MG NEB SCH ×2 (09:40→20:10)
[2020-11-21] MEDS: ALBUMIN HUMAN 25%- 100 ML 100 ML IV SCH (09:55)
[2020-11-21] MEDS: PROTONIX INJ 40 MG VIAL IVP SCH (09:56)
[2020-11-21] MEDS: VITAMIN D3 125 mcg (5,000 UNITS) NG SCH (09:57)
[2020-11-21] MEDS: THIAMINE HCL INJ IVP SCH ×2 (09:58→21:00)
[2020-11-21] MEDS: BUTT CREAM (COMPOUND) TOP SCH ×2 (09:58→21:00)
[2020-11-21] MEDS: NYSTATIN POWDER TOP SCH ×2 (09:58→21:00)
[2020-11-21] MEDS: LEVEMIR SC SCH ×2 (09:59→21:40)
[2020-11-21] MEDS: NYSTATIN CREAM TOP SCH ×2 (10:00→21:00)
[2020-11-21] MEDS: INVANZ INJ 1 GM VIAL 1 GM in NS 100 ML IV + SPIKE MINIBAG* 100 ML IV SCH (10:00)
[2020-11-21] MEDS: ELIQUIS NG SCH ×2 (10:00→21:00)
[2020-11-21] MEDS: DIFLUCAN 200 MG IV PREMIX* 200 MG/100 ML BAG IV SCH (10:00)
[2020-11-21] MEDS: MILK OF MAGNESIA NG SCH ×2 (10:00→21:00)
[2020-11-21] MEDS: DIAMOX PO SCH (10:01)
[2020-11-21] MEDS: TYLENOL 325 MG TAB PO PRN (10:37)
--- NOTE | 2020-11-21 12:10 | PCM.PROG ---
Progress Note - Progress Note for Day of Date of Exam: 11/15/20 - Subjective Subjective: MS. RICHARDS WAS ADMITTED FOR TREATMENT OF COVID PNEUMONIA AND HYPOXIA. HX OBESITY, OTHERWISE, NO SIGNIFICANT PMH. SHE REMAINS IN THE INTENSIVE CARE UNIT. SHE WAS INTUBATED ON 10/24 DUE TO RESPIRATORY FAILURE. TRACHEOSTOMY WAS INSERTED ON 11/07. HER VENT SETTINGS THIS MORNING ARE: A/C, RATE 30, TIDAL VOLUME 400, PEEP 14, FI02 100. SATURATIONS HAVE BEEN 92-98% THROUGHOUT THE NIGHT. ON EXAMINATION, HEART IS REGULAR IN RATE AND RHYTHM. NG TUBE NOTED. BILATERAL LUNGS ARE NOTED WITH DIMINISHED LUNG SOUNDS THROUGHOUT. ABDOMEN IS ROUND, SOFT, AND NON-TENDER WITH NORMAL BOWEL SOUNDS NOTED IN ALL QUADRANTS. MATHIS CATHETER TO BEDSIDE DRAINAGE. HER VITALS THIS MORNING ARE: 98.5-96-30-98%-122/66. LABS WERE OBTAINED. ABNORMAL LAB VALUES INCLUDE THE FOLLOWING: RBC 3.21, HBG 10.7, HCT 31.1, PLT COUNT 149, SODIUM 147, CARBON DIOXIDE 35.1, CREATININE 0.37, GLUCOSE 311, TOTAL BILI 1.20, TOTAL PROTEIN 5.8, GLOBULIN 2.1. ABG REVEALED: PH 7.460, PC02 54, P02 74, HC03 38.4, 02 SAT 95, BASE EXCESS 12.5, A-A GRADIENT 572, FI02 100. CHEST XRAY WAS OBTAINED AND REVEALED: There is no significant change in appearance of heart, lungs or support lines. Diffuse infiltrates are stable in appearance. No additional consolidation, complicating pneumothorax or pleural effusion. WE WILL CONTINUE WITH HER SEDATION, NEBULIZER TREATMENTS, ANTIBIOTICS, IV FLUIDS, STEROIDS, BLOOD GLUCOSE CONTROL, ENTERAL FEEDINGS AND CURRENT PLAN OF CARE. WE WILL FOLLOW UP WITH AM LABS, CHEST XRAY, ABG, AND CONTINUE TO MONITOR. TIME SPENT ON CLINICAL ASSESSMENT, REVIEWING LABS AND IMAGING, DECISION MAKING, AND DOCUMENTATION GRE ATER THAN 75 MINUTES. - Past Medical Family Social History Past Med/Fam/Surg Hx: No changes since H&P Allergies: Allergies ibuprofen Adverse Reaction (Verified 10/06/20 20:57) abd pain - Review of Systems ROS: No change since H&P - Vital Signs and I&O's Vital Signs: Temperature 100.1 F Pulse Rate [Apical] 71 Pulse Rate [Left] 81 Pulse Rate 110 Respiratory Rate 31 Blood Pressure [Right Arm] 117/65 Blood Pressure [Left Arm] 147/90 Blood Pressure 171/89 O2 Sat by Pulse Oximetry 93 Intake and Output: Intake & Output 11/19/20 11/20/20 11/21/20 11/22/20 11:59 11:59 11:59 11:59 Intake Total 4820 / 4820 3650 / 3650 2393 / 2393 Output Total 3815 / 3815 3466 / 3466 2150 / 2150 Balance 1005 / 1005 184 / 184 243 / 243 - Physical Exam Oriented: Unable to test Eyes: Normal Ear: Normal Nose: Normal Throat: Normal Respiratory: Generalized, Diminished Cardiovascular: Normal : Normal Auscultation: Bowel Sounds: Normal Tenderness: Normal Skin: Normal Musculoskeletal: Normal Psychiatric: Normal Mood Description: Anxious Affect: Anxious Speech Pattern: Artificially Ventilated - Laboratory and Diagnostics Result Diagrams: 11/21/20 04:44 11/21/20 08:45 Labs: 11/11/20 14:05 Urine,Catheterized Urine Culture - Final 11/12/20 14:54 Sputum - Endotracheal Wash Sputum Culture - Final 11/12/20 14:54 Sputum - Endotracheal Wash - Final 10/24/20 20:55 Sputum - Endotracheal Wash Sputum Culture - Final 10/24/20 20:55 Sputum - Endotracheal Wash - Final 10/07/20 11:51 Blood Blood Culture - Final 10/07/20 11:49 Blood Blood Culture - Final Laboratory WBC 14.9 X10^3/uL (3.6-10.0) H 11/21/20 04:44 RBC 3.02 X10^6/uL (3.5-5.4) L 11/21/20 04:44 Hgb 10.0 g/dL (12.0-16.0) L 11/21/20 04:44 Hct 29.2 % (36.0-47.0) L 11/21/20 04:44 MCV 96.7 fL (80.0-100.0) 11/21/20 04:44 MCH 33.0 pg (27.0-34.0) 11/21/20 04:44 MCHC 34.1 g/dL (33.0-35.0) 11/21/20 04:44 RDW 18.6 % (11.6-16.5) H 11/21/20 04:44 Plt Count 252 X10^3/uL (150.0-450.0) 11/21/20 04:44 Plt Count Comment Adequate (ADEQUATE) 11/21/20 04:44 MPV 9.4 fL (7.4-11.0) 11/21/20 04:44 Neut % (Auto) 86.9 % (42.0-75.0) H 11/21/20 04:44 Lymph % (Auto) 7.7 % (21.0-51.0) L 11/21/20 04:44 [place] % (Auto) 5.1 % (0.0-13.0) 11/21/20 04:44 Eos % (Auto) 0.0 % (0.9-2.9) L 11/21/20 04:44 Baso % (Auto) 0.3 % (0.2-1.0) 11/21/20 04:44 Neut # (Auto) 13.0 x10^3/uL (2.2-4.8) H 11/21/20 04:44 Lymph # (Auto) 1.1 X10^3/uL (1.3-2.9) L 11/21/20 04:44 [place] # (Auto) 0.8 x10^3/uL (0.3-0.8) 11/21/20 04:44 Eos # (Auto) 0.0 x10^3/uL (0.0-0.2) 11/21/20 04:44 Baso # (Auto) 0.0 X10^3/uL (0.0-0.1) 11/21/20 04:44 Absolute Nucleated RBC 0.5 /100WBC 11/21/20 04:44 Total Counted 100 11/21/20 04:44 Neutrophils % (Manual) 86 % (39-76) H 11/21/20 04:44 Band Neutrophils % 3 % (0-10) 11/21/20 04:44 Lymphocytes % (Manual) 8 % (13-43) L 11/21/20 04:44 Monocytes % (Manual) 3 % (4-9) L 11/21/20 04:44 Eosinophils % (Manual) 1 % (0-6) 11/07/20 04:34 Basophils % (Manual) Cancelled 11/01/20 05:10 Metamyelocytes % Cancelled 11/01/20 05:10 Myelocytes % Cancelled 11/01/20 05:10 Promyelocytes % Cancelled 11/01/20 05:10 Nucleated RBCs Cancelled 11/01/20 05:10 Atypical Lymphocytes Cancelled 11/01/20 05:10 Blast Cells Cancelled 11/01/20 05:10 Smudge Cells Cancelled 11/01/20 05:10 Toxic Granulation Cancelled 11/01/20 05:10 Dohle Bodies Cancelled 11/01/20 05:10 Gutierrez Rods Cancelled 11/01/20 05:10 Plt Clumps, EDTA Cancelled 11/01/20 05:10 Giant Platelets Cancelled 11/01/20 05:10 Plt Morphology Comment Normal (NORMAL) 11/21/20 04:44 RBC Morphology Abnormal (NORMAL) A 11/21/20 04:44 Dimorphic RBCs Cancelled 11/01/20 05:10 Polychromasia Cancelled 11/01/20 05:10 Hypochromasia Slight A 11/07/20 04:34 Poikilocytosis Cancelled 11/01/20 05:10 Basophilic Stippling Cancelled 11/01/20 05:10 Anisocytosis Slight A 11/21/20 04:44 Microcytosis Cancelled 11/01/20 05:10 Macrocytosis Slight A 11/07/20 04:34 Spherocytes Cancelled 11/01/20 05:10 Pappenheimer Bodies Cancelled 11/01/20 05:10 Sickle Cells Cancelled 11/01/20 05:10 Target Cells Cancelled 11/01/20 05:10 Tear Drop Cells Cancelled 11/01/20 05:10 Ovalocytes Cancelled 11/01/20 05:10 Stomatocytes Present 11/20/20 04:38 Helmet Cells Cancelled 11/01/20 05:10 [place] Bodies Cancelled 11/01/20 05:10 [place] Rings Cancelled 11/01/20 05:10 [place] Cells Cancelled 11/01/20 05:10 Crenated Cell Cancelled 11/01/20 05:10 Acanthocytes (Spur) Cancelled 11/01/20 05:10 Rouleaux Cancelled 11/01/20 05:10 Schistocytes Cancelled 11/01/20 05:10 PT 15.7 SECONDS (11.8-14.3) 11/06/20 04:27 INR Target Range - 11/06/20 04:27 INR 1.31 (0.8-1.3) H 11/06/20 04:27 D-Dimer 1.01 ug/ml (0.0-0.57) H* 11/13/20 04:04 Sample Site Elin 11/21/20 04:39 ABG pH 7.470 (7.35-7.45) H 11/21/20 04:39 ABG pCO2 57.0 mmHg (35.0-45.0) H* 11/21/20 04:39 ABG pO2 68.0 mmHg (80.0-100.0) L 11/21/20 04:39 ABG HCO3 41.5 mmol/L (22-26) H* 11/21/20 04:39 ABG O2 Saturation 94.0 % (90-100) 11/21/20 04:39 ABG Base Excess 15.3 mmol/L (-2.0-2.0) H 11/21/20 04:39 Loyd Test N/a 11/21/20 04:39 A-a Gradient 574.0 mmHg 11/21/20 04:39 FiO2 100.0 11/21/20 04:39 Blood Gas Comments Coby well ae 11/21/20 04:39 Sodium 146 mmol/L (136-145) H 11/21/20 04:44 Corrected Sodium 149 mmol/L (136-145) H 11/21/20 04:44 Potassium 4.8 mmol/L (3.5-5.1) 11/21/20 08:45 Chloride 103 mmol/L (98-107) 11/21/20 04:44 Carbon Dioxide 38.7 mmol/L (21-32) H 11/21/20 04:44 BUN 13 mg/dL (7-18) 11/21/20 04:44 Creatinine 0.33 mg/dL (0.55-1.02) L 11/21/20 04:44 Est GFR (MDRD) Af Amer > 60 (>60) 11/21/20 04:44 Est GFR (MDRD) Non-Af > 60 (>60) 11/21/20 04:44 Glucose 220 mg/dL (65-99) H 11/21/20 04:44 POC Glucose (mg/dL) 333 mg/dL (65-99) H 11/21/20 10:08 Calcium 9.0 mg/dL (8.5-10.1) 11/21/20 04:44 Corrected Calcium TNP 11/21/20 04:44 Phosphorus 2.2 mg/dL (2.6-4.7) L 11/01/20 05:10 Magnesium 2.8 mg/dL (1.7-2.9) 11/18/20 05:02 Ferritin 531 ng/mL (8-252) H 10/12/20 05:33 Total Bilirubin 1.90 mg/dL (0.2-1.0) H 11/21/20 04:44 AST 81 Units/L (15-37) H 11/21/20 04:44 ALT 114 Units/L (12-78) H 11/21/20 04:44 Alkaline Phosphatase 125 Units/L (46-116) H 11/21/20 04:44 Creatine Kinase 180 Units/L (26-192) 10/07/20 11:49 CK-MB (CK-2) < 1.0 ng/mL (0-4.0) 10/07/20 11:49 CK/CKMB % Calc 0.6 % (<4) 10/07/20 11:49 Troponin I < 0.02 ng/mL (0-1.5) 10/07/20 11:49 C-Reactive Protein 14.40 mg/L (0-3.0) H 11/13/20 04:04 B-Natriuretic Peptide 32.1 pg/mL (0-79) 11/13/20 04:04 Total Protein 6.3 g/dL (6.4-8.2) L 11/21/20 04:44 Albumin 4.0 g/dL (3.4-5.0) 11/21/20 04:44 Globulin 2.3 g/dL (2.5-4.5) L 11/21/20 04:44 Albumin/Globulin Ratio 1.7 Ratio (1.1-2.1) 11/21/20 04:44 Prealbumin 23.7 mg/dL (18-35.7) 11/08/20 03:40 Triglycerides 168 mg/dL (0-150) H 11/01/20 05:10 Specimen Type Catherized urine 11/11/20 14:05 Urine Color Yellow (YELLOW) 11/11/20 14:05 Urine Appearance Hazy (CLEAR) 11/11/20 14:05 Urine pH 7.0 (5.0 - 8.0) 11/11/20 14:05 Ur Specific [place] 1.015 (1.000-1.030) 11/11/20 14:05 Urine Protein 2+ (NEGATIVE) 11/11/20 14:05 Urine Glucose (UA) Negative (NEGATIVE) 11/11/20 14:05 Urine Ketones Negative (NEGATIVE) 11/11/20 14:05 Urine Occult Blood 5+ (NEGATIVE) 11/11/20 14:05 Urine Nitrite Negative (NEGATIVE) 11/11/20 14:05 Urine Bilirubin Negative (NEGATIVE) 11/11/20 14:05 Urine Urobilinogen Normal (NORMAL) 11/11/20 14:05 Ur Leukocyte Esterase 1+ (NEGATIVE) 11/11/20 14:05 Urine RBC Tntc /HPF (0-3) A 11/11/20 14:05 Urine WBC 10-20 /HPF (0-5) A 11/11/20 14:05 Ur Squamous Epith Cells Negative /HPF (NEGATIVE) 11/11/20 14:05 Ur Renal Epithelial Cell Rare /HPF (NEGATIVE) 11/11/20 14:05 Urine Bacteria 1+ /HPF (NEGATIVE) 11/11/20 14:05 Urine Yeast Many /HPF (NEGATIVE) 11/11/20 14:05 Ur Culture Indicated? Yes/culture set up 11/11/20 14:05 Resp Viral Panel (PCR) See scanned report 11/12/20 14:54 Blood Type A POSITIVE 11/08/20 10:20 Antibody Screen Negative 11/08/20 10:20 Crossmatch See Detail 11/08/20 10:20 - Plan (1) Pneumonia due to COVID-19 virus Status: Acute Plan: MECHANICAL VENT, IV FLUIDS, POTASSIUM AND MAGNESIUM REPLACEMENT, IV ANTIBIOTICS, IV STEROIDS, IV DIFLUCAN, NEBULIZER TREATMENTS, RESPIRATORY THERAPY, VERSED FOR SEDATION, ENTERAL NUTRITION, GLUCOSE MONITORING WITH SLIDING SCALE COVERAGE. (2) ARDS (adult respiratory distress syndrome) Status: Acute (3) Hypoxia Status: Acute Plan: Ween down FiO2 as tolerated by patient. (4) Thrombocytopenia Status: Acute Plan: Monitor platelets. (5) Anemia Status: Acute Qualifiers: Anemia type: iron deficiency Iron deficiency anemia type: chronic blood loss Qualified Code(s): D50.0 - Iron deficiency anemia secondary to blood loss (chronic) Plan: Monitor Hb.
--- NOTE | 2020-11-21 12:28 | PCM.PROG ---
Progress Note - Progress Note for Day of Date of Exam: 11/19/20 - Subjective Subjective: MS. RICHARDS WAS ADMITTED FOR TREATMENT OF COVID PNEUMONIA AND HYPOXIA. HX OBESITY, OTHERWISE, NO SIGNIFICANT PMH. SHE REMAINS IN THE INTENSIVE CARE UNIT. SHE WAS INTUBATED ON 10/24 DUE TO RESPIRATORY FAILURE. TRACHEOSTOMY WAS INSERTED ON 11/07. HER VENT SETTINGS THIS MORNING ARE: A/C, RATE 30, TIDAL VOLUME 400, PEEP 14, FI02 100. SATURATIONS HAVE BEEN 83-91% THROUGHOUT THE NIGHT. SHE DID REQUIRE SOME PRN BLOOD PRESSURE MEDICATIONS OVER THE WEEKEND. ON EXAMINATION, HEART IS REGULAR IN RATE AND RHYTHM. NG TUBE NOTED. BILATERAL LUNGS ARE NOTED WITH DIMINISHED LUNG SOUNDS THROUGHOUT. ABDOMEN IS ROUND, SOFT, AND NON-TENDER WITH NORMAL BOWEL SOUNDS NOTED IN ALL QUADRANTS. MATHIS CATHETER TO BE DSIDE DRAINAGE. HER VITALS THIS MORNING ARE: 98.4-100-30-90%-144/82. LABS WERE OBTAINED. ABNORMAL LAB VALUES INCLUDE THE FOLLOWING: RBC 3.41, HGB 11.3, HCT 33.5, CARBON DIOXIDE 33.7, CREATININE 0.31, GLUCOSE 370, TOTAL BILI 1.30, TOTAL PROTEIN 6.1, GLOBULIN 2.2. ABG REVEALED: PH 7.400, PC02 66, P02 45, HC03 40.9, 02 SAT 81, BASE EXCESS 13.3, A-A GRADIENT 586, FI02 100. CHEST XRAY WAS OBTAINED AND REVEALED: New 20-30 percent right pneumothorax. No change bilateral interstitial and ground-glass infiltrates. TODAY, WE WILL CONSULT WITH , GENERAL SURGEON, REGARDING NEW PNEUMOTHORAX. OTHERWISE, WE WILL CONTINUE WITH HER SEDATION, NEBULIZER TREATMENTS, ANTIBIOTICS, IV FLUIDS, STEROIDS, BLOOD GLUCOSE CONTROL, ENTERAL FEEDINGS, PRN ANTIHYPERTENSIVES, AND CURRENT PLAN OF CARE. WE WILL FOLLOW UP WITH AM LABS, CHEST XRAY, ABG, AND CONTINUE TO MONITOR. TIME SPENT ON CLINICAL ASSESSMENT, REVIEWING LABS AND IMAGING, DECISION MAKING, AND DOCUMENTATION GREATER THAN 75 MINUTES. - Past Medical Family Social History Past Med/Fam/Surg Hx: No changes since H&P Allergies: Allergies ibuprofen Adverse Reaction (Verified 10/06/20 20:57) abd pain - Review of Systems ROS: No change since H&P - Vital Signs and I&O's Vital Signs: Temperature 100.1 F Pulse Rate [Apical] 71 Pulse Rate [Left] 81 Pulse Rate 110 Respiratory Rate 31 Blood Pressure [Right Arm] 117/65 Blood Pressure [Left Arm] 147/90 Blood Pressure 171/89 O2 Sat by Pulse Oximetry 93 Intake and Output: Intake & Output 11/19/20 11/20/20 11/21/20 11/22/20 11:59 11:59 11:59 11:59 Intake Total 4820 / 4820 3650 / 3650 2393 / 2393 Output Total 3815 / 3815 3466 / 3466 2150 / 2150 Balance 1005 / 1005 184 / 184 243 / 243 - Physical Exam Oriented: Unable to test Eyes: Normal Ear: Normal Nose: Normal Throat: Normal Respiratory: Generalized, Diminished Cardiovascular: Normal : Normal Auscultation: Bowel Sounds: Normal Palpation: Normal Tenderness: Normal Skin: Normal Musculoskeletal: Normal Psychiatric: Normal Mood Description: Anxious Affect: Anxious Speech Pattern: Artificially Ventilated - Laboratory and Diagnostics Result Diagrams: 11/21/20 04:44 11/21/20 08:45 Labs: 11/11/20 14:05 Urine,Catheterized Urine Culture - Final 11/12/20 14:54 Sputum - Endotracheal Wash Sputum Culture - Final 11/12/20 14:54 Sputum - Endotracheal Wash - Final 10/24/20 20:55 Sputum - Endotracheal Wash Sputum Culture - Final 10/24/20 20:55 Sputum - Endotracheal Wash - Final 10/07/20 11:51 Blood Blood Culture - Final 10/07/20 11:49 Blood Blood Culture - Final Laboratory WBC 14.9 X10^3/uL (3.6-10.0) H 11/21/20 04:44 RBC 3.02 X10^6/uL (3.5-5.4) L 11/21/20 04:44 Hgb 10.0 g/dL (12.0-16.0) L 11/21/20 04:44 Hct 29.2 % (36.0-47.0) L 11/21/20 04:44 MCV 96.7 fL (80.0-100.0) 11/21/20 04:44 MCH 33.0 pg (27.0-34.0) 11/21/20 04:44 MCHC 34.1 g/dL (33.0-35.0) 11/21/20 04:44 RDW 18.6 % (11.6-16.5) H 11/21/20 04:44 Plt Count 252 X10^3/uL (150.0-450.0) 11/21/20 04:44 Plt Count Comment Adequate (ADEQUATE) 11/21/20 04:44 MPV 9.4 fL (7.4-11.0) 11/21/20 04:44 Neut % (Auto) 86.9 % (42.0-75.0) H 11/21/20 04:44 Lymph % (Auto) 7.7 % (21.0-51.0) L 11/21/20 04:44 [place] % (Auto) 5.1 % (0.0-13.0) 11/21/20 04:44 Eos % (Auto) 0.0 % (0.9-2.9) L 11/21/20 04:44 Baso % (Auto) 0.3 % (0.2-1.0) 11/21/20 04:44 Neut # (Auto) 13.0 x10^3/uL (2.2-4.8) H 11/21/20 04:44 Lymph # (Auto) 1.1 X10^3/uL (1.3-2.9) L 11/21/20 04:44 [place] # (Auto) 0.8 x10^3/uL (0.3-0.8) 11/21/20 04:44 Eos # (Auto) 0.0 x10^3/uL (0.0-0.2) 11/21/20 04:44 Baso # (Auto) 0.0 X10^3/uL (0.0-0.1) 11/21/20 04:44 Absolute Nucleated RBC 0.5 /100WBC 11/21/20 04:44 Total Counted 100 11/21/20 04:44 Neutrophils % (Manual) 86 % (39-76) H 11/21/20 04:44 Band Neutrophils % 3 % (0-10) 11/21/20 04:44 Lymphocytes % (Manual) 8 % (13-43) L 11/21/20 04:44 Monocytes % (Manual) 3 % (4-9) L 11/21/20 04:44 Eosinophils % (Manual) 1 % (0-6) 11/07/20 04:34 Basophils % (Manual) Cancelled 11/01/20 05:10 Metamyelocytes % Cancelled 11/01/20 05:10 Myelocytes % Cancelled 11/01/20 05:10 Promyelocytes % Cancelled 11/01/20 05:10 Nucleated RBCs Cancelled 11/01/20 05:10 Atypical Lymphocytes Cancelled 11/01/20 05:10 Blast Cells Cancelled 11/01/20 05:10 Smudge Cells Cancelled 11/01/20 05:10 Toxic Granulation Cancelled 11/01/20 05:10 Dohle Bodies Cancelled 11/01/20 05:10 Gutierrez Rods Cancelled 11/01/20 05:10 Plt Clumps, EDTA Cancelled 11/01/20 05:10 Giant Platelets Cancelled 11/01/20 05:10 Plt Morphology Comment Normal (NORMAL) 11/21/20 04:44 RBC Morphology Abnormal (NORMAL) A 11/21/20 04:44 Dimorphic RBCs Cancelled 11/01/20 05:10 Polychromasia Cancelled 11/01/20 05:10 Hypochromasia Slight A 11/07/20 04:34 Poikilocytosis Cancelled 11/01/20 05:10 Basophilic Stippling Cancelled 11/01/20 05:10 Anisocytosis Slight A 11/21/20 04:44 Microcytosis Cancelled 11/01/20 05:10 Macrocytosis Slight A 11/07/20 04:34 Spherocytes Cancelled 11/01/20 05:10 Pappenheimer Bodies Cancelled 11/01/20 05:10 Sickle Cells Cancelled 11/01/20 05:10 Target Cells Cancelled 11/01/20 05:10 Tear Drop Cells Cancelled 11/01/20 05:10 Ovalocytes Cancelled 11/01/20 05:10 Stomatocytes Present 11/20/20 04:38 Helmet Cells Cancelled 11/01/20 05:10 [place] Bodies Cancelled 11/01/20 05:10 [place] Rings Cancelled 11/01/20 05:10 [place] Cells Cancelled 11/01/20 05:10 Crenated Cell Cancelled 11/01/20 05:10 Acanthocytes (Spur) Cancelled 11/01/20 05:10 Rouleaux Cancelled 11/01/20 05:10 Schistocytes Cancelled 11/01/20 05:10 PT 15.7 SECONDS (11.8-14.3) 11/06/20 04:27 INR Target Range - 11/06/20 04:27 INR 1.31 (0.8-1.3) H 11/06/20 04:27 D-Dimer 1.01 ug/ml (0.0-0.57) H* 11/13/20 04:04 Sample Site Elin 11/21/20 04:39 ABG pH 7.470 (7.35-7.45) H 11/21/20 04:39 ABG pCO2 57.0 mmHg (35.0-45.0) H* 11/21/20 04:39 ABG pO2 68.0 mmHg (80.0-100.0) L 11/21/20 04:39 ABG HCO3 41.5 mmol/L (22-26) H* 11/21/20 04:39 ABG O2 Saturation 94.0 % (90-100) 11/21/20 04:39 ABG Base Excess 15.3 mmol/L (-2.0-2.0) H 11/21/20 04:39 Loyd Test N/a 11/21/20 04:39 A-a Gradient 574.0 mmHg 11/21/20 04:39 FiO2 100.0 11/21/20 04:39 Blood Gas Comments Coby well ae 11/21/20 04:39 Sodium 146 mmol/L (136-145) H 11/21/20 04:44 Corrected Sodium 149 mmol/L (136-145) H 11/21/20 04:44 Potassium 4.8 mmol/L (3.5-5.1) 11/21/20 08:45 Chloride 103 mmol/L (98-107) 11/21/20 04:44 Carbon Dioxide 38.7 mmol/L (21-32) H 11/21/20 04:44 BUN 13 mg/dL (7-18) 11/21/20 04:44 Creatinine 0.33 mg/dL (0.55-1.02) L 11/21/20 04:44 Est GFR (MDRD) Af Amer > 60 (>60) 11/21/20 04:44 Est GFR (MDRD) Non-Af > 60 (>60) 11/21/20 04:44 Glucose 220 mg/dL (65-99) H 11/21/20 04:44 POC Glucose (mg/dL) 333 mg/dL (65-99) H 11/21/20 10:08 Calcium 9.0 mg/dL (8.5-10.1) 11/21/20 04:44 Corrected Calcium TNP 11/21/20 04:44 Phosphorus 2.2 mg/dL (2.6-4.7) L 11/01/20 05:10 Magnesium 2.8 mg/dL (1.7-2.9) 11/18/20 05:02 Ferritin 531 ng/mL (8-252) H 10/12/20 05:33 Total Bilirubin 1.90 mg/dL (0.2-1.0) H 11/21/20 04:44 AST 81 Units/L (15-37) H 11/21/20 04:44 ALT 114 Units/L (12-78) H 11/21/20 04:44 Alkaline Phosphatase 125 Units/L (46-116) H 11/21/20 04:44 Creatine Kinase 180 Units/L (26-192) 10/07/20 11:49 CK-MB (CK-2) < 1.0 ng/mL (0-4.0) 10/07/20 11:49 CK/CKMB % Calc 0.6 % (<4) 10/07/20 11:49 Troponin I < 0.02 ng/mL (0-1.5) 10/07/20 11:49 C-Reactive Protein 14.40 mg/L (0-3.0) H 11/13/20 04:04 B-Natriuretic Peptide 32.1 pg/mL (0-79) 11/13/20 04:04 Total Protein 6.3 g/dL (6.4-8.2) L 11/21/20 04:44 Albumin 4.0 g/dL (3.4-5.0) 11/21/20 04:44 Globulin 2.3 g/dL (2.5-4.5) L 11/21/20 04:44 Albumin/Globulin Ratio 1.7 Ratio (1.1-2.1) 11/21/20 04:44 Prealbumin 23.7 mg/dL (18-35.7) 11/08/20 03:40 Triglycerides 168 mg/dL (0-150) H 11/01/20 05:10 Specimen Type Catherized urine 11/11/20 14:05 Urine Color Yellow (YELLOW) 11/11/20 14:05 Urine Appearance Hazy (CLEAR) 11/11/20 14:05 Urine pH 7.0 (5.0 - 8.0) 11/11/20 14:05 Ur Specific [place] 1.015 (1.000-1.030) 11/11/20 14:05 Urine Protein 2+ (NEGATIVE) 11/11/20 14:05 Urine Glucose (UA) Negative (NEGATIVE) 11/11/20 14:05 Urine Ketones Negative (NEGATIVE) 11/11/20 14:05 Urine Occult Blood 5+ (NEGATIVE) 11/11/20 14:05 Urine Nitrite Negative (NEGATIVE) 11/11/20 14:05 Urine Bilirubin Negative (NEGATIVE) 11/11/20 14:05 Urine Urobilinogen Normal (NORMAL) 11/11/20 14:05 Ur Leukocyte Esterase 1+ (NEGATIVE) 11/11/20 14:05 Urine RBC Tntc /HPF (0-3) A 11/11/20 14:05 Urine WBC 10-20 /HPF (0-5) A 11/11/20 14:05 Ur Squamous Epith Cells Negative /HPF (NEGATIVE) 11/11/20 14:05 Ur Renal Epithelial Cell Rare /HPF (NEGATIVE) 11/11/20 14:05 Urine Bacteria 1+ /HPF (NEGATIVE) 11/11/20 14:05 Urine Yeast Many /HPF (NEGATIVE) 11/11/20 14:05 Ur Culture Indicated? Yes/culture set up 11/11/20 14:05 Resp Viral Panel (PCR) See scanned report 11/12/20 14:54 Blood Type A POSITIVE 11/08/20 10:20 Antibody Screen Negative 11/08/20 10:20 Crossmatch See Detail 11/08/20 10:20 - Plan (1) Pneumonia due to COVID-19 virus Status: Acute Plan: MECHANICAL VENT, IV FLUIDS, POTASSIUM AND MAGNESIUM REPLACEMENT, IV ANTIBIOTICS, IV STEROIDS, IV DIFLUCAN, NEBULIZER TREATMENTS, RESPIRATORY THERA PY, VERSED FOR SEDATION, ENTERAL NUTRITION, GLUCOSE MONITORING WITH SLIDING SCALE COVERAGE. (2) ARDS (adult respiratory distress syndrome) Status: Acute (3) Pneumothorax Status: Acute Qualifiers: Pneumothorax type: unspecified pneumothorax Qualified Code(s): J93.9 - Pneumothorax, unspecified Plan: CONSULT GENERAL SURGERY (4) Hypoxia Status: Acute Plan: Ween down FiO2 as tolerated by patient. (5) Thrombocytopenia Status: Acute Plan: Monitor platelets. (6) Anemia Status: Acute Qualifiers: Anemia type: iron deficiency Iron deficiency anemia type: chronic blood loss Qualified Code(s): D50.0 - Iron deficiency anemia secondary to blood loss (chronic) Plan: Monitor Hb.
--- NOTE | 2020-11-21 12:39 | PCM.PROG ---
Progress Note - Progress Note for Day of Date of Exam: 11/20/20 - Subjective Subjective: MS. RICHARDS WAS ADMITTED FOR TREATMENT OF COVID PNEUMONIA AND HYPOXIA. HX OBESITY, OTHERWISE, NO SIGNIFICANT PMH. SHE REMAINS IN THE INTENSIVE CARE UNIT. SHE WAS INTUBATED ON 10/24 DUE TO RESPIRATORY FAILURE. TRACHEOSTOMY WAS INSERTED ON 11/07. THROUGHOUT THE NIGHT, PATIENT HAD PERSISTENT HYPOXIA. CHEST XRAY WAS REPEATED AND REVEALED THAT PNEUMOTHORAX HAD INCREASED IN SIZE TO 40%. INSERTED A CHEST TUBE AT APPROXIMATELY 2150. AFTER INSERTION OF CHEST TUBE, SATURATIONS INCREASED. HER VENT SETTINGS THIS MORNING ARE: A/C, RATE 30, TIDAL VOLUME 400, PEEP 14, FI02 100. SATURATIONS HAVE BEEN 89-97% THROUGHOUT THE NIGHT. ON EXAMINATION, HEART IS REGULAR IN RATE AND RHYTHM. NG TUBE NOTED. BILATERAL LUNGS ARE NOTED WITH DIMINISHED LUNG SOUNDS THROUGHOUT. RIGHT SIDED CHEST TUBE NOTED. ABDOMEN IS ROUND, SOFT, AND NON-TENDER WITH NORMAL BOWEL SOUNDS NOTED IN ALL QUADRANTS. MATHIS CATHETER TO BEDSIDE DRAINAGE. HER VITALS THIS MORNING ARE: 98.1-97-30-96%-118/66. LABS WERE OBTAINED. ABNORMAL LAB VALUES INCLUDE THE FOLLOWING: RBC 2.90, HGB 9.6, HCT 28.3, SODIUM 147, CARBON DIOXIDE 35.7, CREATININE 0.36, GLUCOSE 319, TOTAL BILI 1.40, TOTAL PROTEIN 6.2, GLOBULIN 2.2. ABG REVEALED: PH 7.420, PC02 63, P02 61, HC03 40.9, 02 SAT 91, A-A GRADIENT 573, FI02 100. CHEST XRAY WAS OBTAINED AND REVEALED: No change bilateral interstitial infiltrates. No definite residual or recurrent right pneumothorax. TODAY, WE WILL DECREASE SEDATION TO ASSESS PATIENTS RESPONSE. WHEN SEDATION IS DECREASED, WE WILL DECREASE VENTILATOR SUPPORT FOR A BREATHING TRIAL. OTHERWISE, WE WILL CONTINUE WITH HER NEBULIZER TREATMENTS, ANTIBIOTICS, IV FLUIDS, STEROIDS, BLOOD GLUCOSE CONTROL, ENTERAL FEEDINGS, PRN ANTI-HYPERTENSIVES, AND CURRENT PLAN OF CARE. WE WILL FOLLOW UP WITH AM LABS, CHEST XRAY, ABG, AND C ONTINUE TO MONITOR. TIME SPENT ON CLINICAL ASSESSMENT, REVIEWING LABS AND IMAGING, DECISION MAKING, AND DOCUMENTATION GREATER THAN 75 MINUTES. - Past Medical Family Social History Past Med/Fam/Surg Hx: No changes since H&P Allergies: Allergies ibuprofen Adverse Reaction (Verified 10/06/20 20:57) abd pain - Review of Systems ROS: No change since H&P - Vital Signs and I&O's Vital Signs: Temperature 100.1 F Pulse Rate [Apical] 71 Pulse Rate [Left] 81 Pulse Rate 110 Respiratory Rate 31 Blood Pressure [Right Arm] 117/65 Blood Pressure [Left Arm] 147/90 Blood Pressure 171/89 O2 Sat by Pulse Oximetry 93 Intake and Output: Intake & Output 11/19/20 11/20/20 11/21/20 11/22/20 11:59 11:59 11:59 11:59 Intake Total 4820 / 4820 3650 / 3650 2393 / 2393 Output Total 3815 / 3815 3466 / 3466 2150 / 2150 Balance 1005 / 1005 184 / 184 243 / 243 - Physical Exam Oriented: Unable to test Eyes: Normal Ear: Normal Nose: Normal Throat: Normal Respiratory: Generalized, Diminished Cardiovascular: Normal : Normal Auscultation: Bowel Sounds: Normal Palpation: Normal Tenderness: Normal Skin: Normal Musculoskeletal: Normal Psychiatric: Normal Mood Description: Anxious Affect: Anxious Speech Pattern: Artificially Ventilated - Laboratory and Diagnostics Result Diagrams: 11/21/20 04:44 11/21/20 08:45 Labs: 11/11/20 14:05 Urine,Catheterized Urine Culture - Final 11/12/20 14:54 Sputum - Endotracheal Wash Sputum Culture - Final 11/12/20 14:54 Sputum - Endotracheal Wash - Final 10/24/20 20:55 Sputum - Endotracheal Wash Sputum Culture - Final 10/24/20 20:55 Sputum - Endotracheal Wash - Final 10/07/20 11:51 Blood Blood Culture - Final 10/07/20 11:49 Blood Blood Culture - Final Laboratory WBC 14.9 X10^3/uL (3.6-10.0) H 11/21/20 04:44 RBC 3.02 X10^6/uL (3.5-5.4) L 11/21/20 04:44 Hgb 10.0 g/dL (12.0-16.0) L 11/21/20 04:44 Hct 29.2 % (36.0-47.0) L 11/21/20 04:44 MCV 96.7 fL (80.0-100.0) 11/21/20 04:44 MCH 33.0 pg (27.0-34.0) 11/21/20 04:44 MCHC 34.1 g/dL (33.0-35.0) 11/21/20 04:44 RDW 18.6 % (11.6-16.5) H 11/21/20 04:44 Plt Count 252 X10^3/uL (150.0-450.0) 11/21/20 04:44 Plt Count Comment Adequate (ADEQUATE) 11/21/20 04:44 MPV 9.4 fL (7.4-11.0) 11/21/20 04:44 Neut % (Auto) 86.9 % (42.0-75.0) H 11/21/20 04:44 Lymph % (Auto) 7.7 % (21.0-51.0) L 11/21/20 04:44 [place] % (Auto) 5.1 % (0.0-13.0) 11/21/20 04:44 Eos % (Auto) 0.0 % (0.9-2.9) L 11/21/20 04:44 Baso % (Auto) 0.3 % (0.2-1.0) 11/21/20 04:44 Neut # (Auto) 13.0 x10^3/uL (2.2-4.8) H 11/21/20 04:44 Lymph # (Auto) 1.1 X10^3/uL (1.3-2.9) L 11/21/20 04:44 [place] # (Auto) 0.8 x10^3/uL (0.3-0.8) 11/21/20 04:44 Eos # (Auto) 0.0 x10^3/uL (0.0-0.2) 11/21/20 04:44 Baso # (Auto) 0.0 X10^3/uL (0.0-0.1) 11/21/20 04:44 Absolute Nucleated RBC 0.5 /100WBC 11/21/20 04:44 Total Counted 100 11/21/20 04:44 Neutrophils % (Manual) 86 % (39-76) H 11/21/20 04:44 Band Neutrophils % 3 % (0-10) 11/21/20 04:44 Lymphocytes % (Manual) 8 % (13-43) L 11/21/20 04:44 Monocytes % (Manual) 3 % (4-9) L 11/21/20 04:44 Eosinophils % (Manual) 1 % (0-6) 11/07/20 04:34 Basophils % (Manual) Cancelled 11/01/20 05:10 Metamyelocytes % Cancelled 11/01/20 05:10 Myelocytes % Cancelled 11/01/20 05:10 Promyelocytes % Cancelled 11/01/20 05:10 Nucleated RBCs Cancelled 11/01/20 05:10 Atypical Lymphocytes Cancelled 11/01/20 05:10 Blast Cells Cancelled 11/01/20 05:10 Smudge Cells Cancelled 11/01/20 05:10 Toxic Granulation Cancelled 11/01/20 05:10 Dohle Bodies Cancelled 11/01/20 05:10 Gutierrez Rods Cancelled 11/01/20 05:10 Plt Clumps, EDTA Cancelled 11/01/20 05:10 Giant Platelets Cancelled 11/01/20 05:10 Plt Morphology Comment Normal (NORMAL) 11/21/20 04:44 RBC Morphology Abnormal (NORMAL) A 11/21/20 04:44 Dimorphic RBCs Cancelled 11/01/20 05:10 Polychromasia Cancelled 11/01/20 05:10 Hypochromasia Slight A 11/07/20 04:34 Poikilocytosis Cancelled 11/01/20 05:10 Basophilic Stippling Cancelled 11/01/20 05:10 Anisocytosis Slight A 11/21/20 04:44 Microcytosis Cancelled 11/01/20 05:10 Macrocytosis Slight A 11/07/20 04:34 Spherocytes Cancelled 11/01/20 05:10 Pappenheimer Bodies Cancelled 11/01/20 05:10 Sickle Cells Cancelled 11/01/20 05:10 Target Cells Cancelled 11/01/20 05:10 Tear Drop Cells Cancelled 11/01/20 05:10 Ovalocytes Cancelled 11/01/20 05:10 Stomatocytes Present 11/20/20 04:38 Helmet Cells Cancelled 11/01/20 05:10 [place] Bodies Cancelled 11/01/20 05:10 [place] Rings Cancelled 11/01/20 05:10 [place] Cells Cancelled 11/01/20 05:10 Crenated Cell Cancelled 11/01/20 05:10 Acanthocytes (Spur) Cancelled 11/01/20 05:10 Rouleaux Cancelled 11/01/20 05:10 Schistocytes Cancelled 11/01/20 05:10 PT 15.7 SECONDS (11.8-14.3) 11/06/20 04:27 INR Target Range - 11/06/20 04:27 INR 1.31 (0.8-1.3) H 11/06/20 04:27 D-Dimer 1.01 ug/ml (0.0-0.57) H* 11/13/20 04:04 Sample Site Elin 11/21/20 04:39 ABG pH 7.470 (7.35-7.45) H 11/21/20 04:39 ABG pCO2 57.0 mmHg (35.0-45.0) H* 11/21/20 04:39 ABG pO2 68.0 mmHg (80.0-100.0) L 11/21/20 04:39 ABG HCO3 41.5 mmol/L (22-26) H* 11/21/20 04:39 ABG O2 Saturation 94.0 % (90-100) 11/21/20 04:39 ABG Base Excess 15.3 mmol/L (-2.0-2.0) H 11/21/20 04:39 Loyd Test N/a 11/21/20 04:39 A-a Gradient 574.0 mmHg 11/21/20 04:39 FiO2 100.0 11/21/20 04:39 Blood Gas Comments Coby well ae 11/21/20 04:39 Sodium 146 mmol/L (136-145) H 11/21/20 04:44 Corrected Sodium 149 mmol/L (136-145) H 11/21/20 04:44 Potassium 4.8 mmol/L (3.5-5.1) 11/21/20 08:45 Chloride 103 mmol/L (98-107) 11/21/20 04:44 Carbon Dioxide 38.7 mmol/L (21-32) H 11/21/20 04:44 BUN 13 mg/dL (7-18) 11/21/20 04:44 Creatinine 0.33 mg/dL (0.55-1.02) L 11/21/20 04:44 Est GFR (MDRD) Af Amer > 60 (>60) 11/21/20 04:44 Est GFR (MDRD) Non-Af > 60 (>60) 11/21/20 04:44 Glucose 220 mg/dL (65-99) H 11/21/20 04:44 POC Glucose (mg/dL) 333 mg/dL (65-99) H 11/21/20 10:08 Calcium 9.0 mg/dL (8.5-10.1) 11/21/20 04:44 Corrected Calcium TNP 11/21/20 04:44 Phosphorus 2.2 mg/dL (2.6-4.7) L 11/01/20 05:10 Magnesium 2.8 mg/dL (1.7-2.9) 11/18/20 05:02 Ferritin 531 ng/mL (8-252) H 10/12/20 05:33 Total Bilirubin 1.90 mg/dL (0.2-1.0) H 11/21/20 04:44 AST 81 Units/L (15-37) H 11/21/20 04:44 ALT 114 Units/L (12-78) H 11/21/20 04:44 Alkaline Phosphatase 125 Units/L (46-116) H 11/21/20 04:44 Creatine Kinase 180 Units/L (26-192) 10/07/20 11:49 CK-MB (CK-2) < 1.0 ng/mL (0-4.0) 10/07/20 11:49 CK/CKMB % Calc 0.6 % (<4) 10/07/20 11:49 Troponin I < 0.02 ng/mL (0-1.5) 10/07/20 11:49 C-Reactive Protein 14.40 mg/L (0-3.0) H 11/13/20 04:04 B-Natriuretic Peptide 32.1 pg/mL (0-79) 11/13/20 04:04 Total Protein 6.3 g/dL (6.4-8.2) L 11/21/20 04:44 Albumin 4.0 g/dL (3.4-5.0) 11/21/20 04:44 Globulin 2.3 g/dL (2.5-4.5) L 11/21/20 04:44 Albumin/Globulin Ratio 1.7 Ratio (1.1-2.1) 11/21/20 04:44 Prealbumin 23.7 mg/dL (18-35.7) 11/08/20 03:40 Triglycerides 168 mg/dL (0-150) H 11/01/20 05:10 Specimen Type Catherized urine 11/11/20 14:05 Urine Color Yellow (YELLOW) 11/11/20 14:05 Urine Appearance Hazy (CLEAR) 11/11/20 14:05 Urine pH 7.0 (5.0 - 8.0) 11/11/20 14:05 Ur Specific [place] 1.015 (1.000-1.030) 11/11/20 14:05 Urine Protein 2+ (NEGATIVE) 11/11/20 14:05 Urine Glucose (UA) Negative (NEGATIVE) 11/11/20 14:05 Urine Ketones Negative (NEGATIVE) 11/11/20 14:05 Urine Occult Blood 5+ (NEGATIVE) 11/11/20 14:05 Urine Nitrite Negative (NEGATIVE) 11/11/20 14:05 Urine Bilirubin Negative (NEGATIVE) 11/11/20 14:05 Urine Urobilinogen Normal (NORMAL) 11/11/20 14:05 Ur Leukocyte Esterase 1+ (NEGATIVE) 11/11/20 14:05 Urine RBC Tntc /HPF (0-3) A 11/11/20 14:05 Urine WBC 10-20 /HPF (0-5) A 11/11/20 14:05 Ur Squamous Epith Cells Negative /HPF (NEGATIVE) 11/11/20 14:05 Ur Renal Epithelial Cell Rare /HPF (NEGATIVE) 11/11/20 14:05 Urine Bacteria 1+ /HPF (NEGATIVE) 11/11/20 14:05 Urine Yeast Many /HPF (NEGATIVE) 11/11/20 14:05 Ur Culture Indicated? Yes/culture set up 11/11/20 14:05 Resp Viral Panel (PCR) See scanned report 11/12/20 14:54 Blood Type A POSITIVE 11/08/20 10:20 Antibody Screen Negative 11/08/20 10:20 Crossmatch See Detail 11/08/20 10:20 - Plan (1) Pneumonia due to COVID-19 virus Status: Acute Plan: MECHANICAL VENT, IV FLUIDS, POTASSIUM AND MAGNESIUM REPLACEMENT, IV ANTIBIOTICS, IV STEROIDS, IV DIFLUCAN, NEBULIZER TREATMENTS, RESPIRATORY THERAPY, VERSED FOR SEDATION, ENTERAL NUTRITION, GLUCOSE MONITORING WITH SLIDING SCALE COVERAGE. (2) ARDS (adult respiratory distress syndrome) Status: Acute (3) Pneumothorax Status: Acute Qualifiers: Pneumothorax type: unspecified pneumothorax Qualified Code(s): J93.9 - Pneumothorax, unspecified Plan: CHEST TUBE (4) Hypoxia Status: Acute Plan: Ween down FiO2 as tolerated by patient. (5) Thrombocytopenia Status: Acute Plan: Monitor platelets. (6) Anemia Status: Acute Qualifiers: Anemia type: iron deficiency Iron deficiency anemia type: chronic blood loss Qualified Code(s): D50.0 - Iron deficiency anemia secondary to blood loss (chronic) Plan: Monitor Hb.
[2020-11-21] MEDS: NORMODYNE INJ 20 MG VIAL IV PRN ×2 (13:43→21:30)
[2020-11-21] MEDS: SNACK - Diabetic Appropriate PO SCH (20:01)
[2020-11-21] MEDS: LOPRESSOR INJ 5 MG AMP IVP PRN (23:25)
[2020-11-22] MEDS: NORMODYNE INJ 20 MG VIAL IV PRN ×5 (00:15→13:00)
[2020-11-22] MEDS: HumuLIN R SUBCUT PRN ×3 (01:15→16:50)
[2020-11-22 04:23] LABS: ABG BASE EXCESS 14.2 mmol/L (-2.0-2.0)
[2020-11-22 04:24] LABS: ABG HCO3 41.2 mmol/L (22-26)
[2020-11-22 05:13] LABS: BASOPHILS % (AUTO) 0.2 % (0.2-1.0); HEMATOCRIT 28.3 % (36.0-47.0); HEMOGLOBIN 9.6 g/dL (12.0-16.0); LYMPHOCYTES # (AUTO) 0.8 X10^3/uL (1.3-2.9); LYMPHOCYTES % (AUTO) 5.5 % (21.0-51.0); MEAN CORPUSCULAR HEMOGLOBIN 32.6 pg (27.0-34.0); MEAN CORPUSCULAR HGB CONC 33.8 g/dL (33.0-35.0); MEAN CORPUSCULAR VOLUME 96.5 fL (80.0-100.0); MEAN PLATELET VOLUME 9.6 fL (7.4-11.0); MONOCYTES # (AUTO) 0.6 x10^3/uL (0.3-0.8); MONOCYTES % (AUTO) 4.3 % (0.0-13.0); NEUTROPHILS # (AUTO) 13.1 x10^3/uL (2.2-4.8); PLATELET COUNT 190 X10^3/uL (150.0-450.0); RED BLOOD COUNT 2.94 X10^6/uL (3.5-5.4); RED CELL DISTRIBUTION WIDTH 18.3 % (11.6-16.5); WHITE BLOOD COUNT 14.5 X10^3/uL (3.6-10.0)
[2020-11-22 05:27] LABS: ANISOCYTOSIS SLIGHT; BAND NEUTROPHILS % 3 % (0-10); PLATELET MORPHOLOGY COMMENT NORMAL (NORMAL); STOMATOCYTES PRESENT
[2020-11-22] MEDS: ACCUNEB 1.25 MG NEBULE NEB SCH ×3 (05:30→21:07)
[2020-11-22 05:33] LABS: ALANINE AMINOTRANSFERASE 242 Units/L (12-78); ALBUMIN 3.8 g/dL (3.4-5.0); ALKALINE PHOSPHATASE 169 Units/L (46-116); ASPARTATE AMINO TRANSFERASE 117 Units/L (15-37); BLOOD UREA NITROGEN 14 mg/dL (7-18); CALCIUM 8.6 mg/dL (8.5-10.1); CHLORIDE 97 mmol/L (98-107); COR NA(FOR HYPERGLY) 142 mmol/L (136-145); CREATININE 0.34 mg/dL (0.55-1.02); SODIUM 138 mmol/L (136-145); TOTAL PROTEIN 6.2 g/dL (6.4-8.2); eGFR NON BLACK RACES > 60 (>60)
[2020-11-22] MEDS: SOLU-Medrol 40 MG VIAL IVP SCH ×3 (05:38→21:00)
--- NOTE | 2020-11-22 06:34 | RAD ---
HISTORYShortness of breathSTUDYChest AP [id number]/13/2021FINDINGSTher e is a tracheostomy tube in good position. There is a nasogastric tube coursing below the left hemidiaphragm. Its tip is not visible. Heart size is normal. Jaqueline are normal. Subtle interstitial infiltrates are present throughout the right lung with some increasing density in the right cardiophrenic angle which may represent early consolidation or developing subsegmental atelectasis. The left lung is clear. No pleural effusions are identified. Bony thorax is unremarkable.IMPRESSIONDiffuse interstitial infiltrates throughout the right lung with some increasing density in the medial right lower lobe which could represent developing consolidation or subsegmental atelectasis. Of this area is recommended.The left lung is clearElectronically signed by: EDUIN LOPEZ (Nov 22, 2020 06:32:32)
--- NOTE | 2020-11-22 08:39 | PCM.PROG ---
Progress Note - Progress Note for Day of Date of Exam: 11/21/20 - Subjective Subjective: MS. RICHARDS WAS ADMITTED FOR TREATMENT OF COVID PNEUMONIA AND HYPOXIA. HX OBESITY, OTHERWISE, NO SIGNIFICANT PMH. SHE REMAINS IN THE INTENSIVE CARE UNIT. SHE WAS INTUBATED ON 10/24 DUE TO RESPIRATORY FAILURE. TRACHEOSTOMY WAS INSERTED ON 11/07. CHEST TUBE WAS INSERTED ON 11/19 DUE TO LARGE PNEU MOTHORAX. HER VENT SETTINGS THIS MORNING ARE: A/C, RATE 30, TIDAL VOLUME 400, PEEP 12, FI02 100. SATURATIONS HAVE BEEN 89-97% THROUGHOUT THE NIGHT. ON EXAMINATION, HEART IS REGULAR IN RATE AND RHYTHM. NG TUBE NOTED. BILATERAL LUNGS ARE NOTED WITH DIMINISHED LUNG SOUNDS THROUGHOUT. RIGHT SIDED CHEST TUBE NOTED. ABDOMEN IS ROUND, SOFT, AND NON-TENDER WITH NORMAL BOWEL SOUNDS NOTED IN ALL QUADRANTS. MATHIS CATHETER TO BEDSIDE DRAINAGE. HER VITALS THIS MORNING ARE: 100.1-94-32-87%-180/90. LABS WERE OBTAINED. ABNORMAL LAB VALUES INCLUDE THE FOLLOWING: WBC 14.9, RBC 3.02, HGB 10.0, HCT 29.2, SODIUM 146, POTASSIUM 3.3, CARBON DIOXIDE 38.7, CREATININE 0.33, GLUCOSE 220, TOTAL BILI 1.90, AST 81, ALT 114, ALK PHOS 125, TOTAL PROTEIN 6.3, GLOBULIN 2.3. ABG REVEALED: PH 7.470, PC02 57, P02 68, HC03 41.5, 02 SAT 94, A-A GRADIENT 574, FIO2 100. CHEST XRAY WAS OBTAINED AND REVEALED: Tracheostomy tubes in good position. Unremarkable cardio mediastinal silhouette. Normal central vascularity. Mild diffuse increased density right vicky thorax could be related to chest wall or rotation. Unchanged interstitial markings lung bases. No pleural fluid or pneumothorax. SEDATIONS HAS BEEN COMPLETELY OFF SINCE YESTERDAY. PATIENT HAS HAD NO MEANINGFUL RESPONSE AND WAS NOT ABLE TO ADDEQUATELY MAINTAIN RESPIRATORY EFFORTS DESPITE SEDATIONS BEING OFF. WE WILL CONTINUE WITH HER NEBULIZER TREATMENTS, ANTIBIOTICS, IV FLUIDS, STEROIDS, BLOOD GLUCOSE CONTROL, ENTERAL FEEDINGS, PRN ANTI- HYPERTENSIVES, AND CURRENT PLAN OF CARE. OTHERWISE, WE WILL FOLLOW UP WITH AM LABS, CHEST XRAY, ABG, AND CONTINUE TO MONITOR. TIME SPENT ON CLINICAL ASSESSMENT, REVIEWING LABS AND IMAGING, DECISION MAKING, AND DOCUMENTATION GREA TER THAN 75 MINUTES. - Past Medical Family Social History Past Med/Fam/Surg Hx: No changes since H&P Allergies: Allergies ibuprofen Adverse Reaction (Verified 10/06/20 20:57) abd pain - Review of Systems ROS: No change since H&P - Vital Signs and I&O's Vital Signs: Temperature 98.8 F Pulse Rate [Apical] 71 Pulse Rate [Left] 81 Pulse Rate 95 Respiratory Rate 32 Blood Pressure [Right Arm] 117/65 Blood Pressure [Left Arm] 147/90 Blood Pressure 153/80 O2 Sat by Pulse Oximetry 91 Intake and Output: Intake & Output 11/19/20 11/20/20 11/21/20 11/22/20 11:59 11:59 11:59 11:59 Intake Total 4820 / 4820 3650 / 3650 2393 / 2393 1667 / 1667 Output Total 3815 / 3815 3466 / 3466 2150 / 2150 3065 / 3065 Balance 1005 / 1005 184 / 184 243 / 243 -1398 / -1398 - Physical Exam Oriented: Unable to test Eyes: Normal Ear: Normal Nose: Normal Throat: Normal Respiratory: Generalized, Diminished Cardiovascular: Normal : Normal Auscultation: Bowel Sounds: Normal Palpation: Normal Tenderness: Normal Skin: Normal Musculoskeletal: Normal Psychiatric: Normal Mood Description: Anxious Affect: Anxious Speech Pattern: Artificially Ventilated - Laboratory and Diagnostics Result Diagrams: 11/22/20 04:18 11/22/20 04:18 Labs: 11/11/20 14:05 Urine,Catheterized Urine Culture - Final 11/12/20 14:54 Sputum - Endotracheal Wash Sputum Culture - Final 11/12/20 14:54 Sputum - Endotracheal Wash - Final 10/24/20 20:55 Sputum - Endotracheal Wash Sputum Culture - Final 10/24/20 20:55 Sputum - Endotracheal Wash - Final 10/07/20 11:51 Blood Blood Culture - Final 10/07/20 11:49 Blood Blood Culture - Final Laboratory WBC 14.5 X10^3/uL (3.6-10.0) H 11/22/20 04:18 RBC 2.94 X10^6/uL (3.5-5.4) L 11/22/20 04:18 Hgb 9.6 g/dL (12.0-16.0) L 11/22/20 04:18 Hct 28.3 % (36.0-47.0) L 11/22/20 04:18 MCV 96.5 fL (80.0-100.0) 11/22/20 04:18 MCH 32.6 pg (27.0-34.0) 11/22/20 04:18 MCHC 33.8 g/dL (33.0-35.0) 11/22/20 04:18 RDW 18.3 % (11.6-16.5) H 11/22/20 04:18 Plt Count 190 X10^3/uL (150.0-450.0) 11/22/20 04:18 Plt Count Comment Adequate (ADEQUATE) 11/22/20 04:18 MPV 9.6 fL (7.4-11.0) 11/22/20 04:18 Neut % (Auto) 90.0 % (42.0-75.0) H 11/22/20 04:18 Lymph % (Auto) 5.5 % (21.0-51.0) L 11/22/20 04:18 [place] % (Auto) 4.3 % (0.0-13.0) 11/22/20 04:18 Eos % (Auto) 0.0 % (0.9-2.9) L 11/22/20 04:18 Baso % (Auto) 0.2 % (0.2-1.0) 11/22/20 04:18 Neut # (Auto) 13.1 x10^3/uL (2.2-4.8) H 11/22/20 04:18 Lymph # (Auto) 0.8 X10^3/uL (1.3-2.9) L 11/22/20 04:18 [place] # (Auto) 0.6 x10^3/uL (0.3-0.8) 11/22/20 04:18 Eos # (Auto) 0.0 x10^3/uL (0.0-0.2) 11/22/20 04:18 Baso # (Auto) 0.0 X10^3/uL (0.0-0.1) 11/22/20 04:18 Absolute Nucleated RBC 0.3 /100WBC 11/22/20 04:18 Total Counted 100 11/22/20 04:18 Neutrophils % (Manual) 90 % (39-76) H 11/22/20 04:18 Band Neutrophils % 3 % (0-10) 11/22/20 04:18 Lymphocytes % (Manual) 5 % (13-43) L 11/22/20 04:18 Monocytes % (Manual) 2 % (4-9) L 11/22/20 04:18 Eosinophils % (Manual) 1 % (0-6) 11/07/20 04:34 Basophils % (Manual) Cancelled 11/01/20 05:10 Metamyelocytes % Cancelled 11/01/20 05:10 Myelocytes % Cancelled 11/01/20 05:10 Promyelocytes % Cancelled 11/01/20 05:10 Nucleated RBCs Cancelled 11/01/20 05:10 Atypical Lymphocytes Cancelled 11/01/20 05:10 Blast Cells Cancelled 11/01/20 05:10 Smudge Cells Cancelled 11/01/20 05:10 Toxic Granulation Cancelled 11/01/20 05:10 Dohle Bodies Cancelled 11/01/20 05:10 Gutierrez Rods Cancelled 11/01/20 05:10 Plt Clumps, EDTA Cancelled 11/01/20 05:10 Giant Platelets Cancelled 11/01/20 05:10 Plt Morphology Comment Normal (NORMAL) 11/22/20 04:18 RBC Morphology Abnormal (NORMAL) A 11/22/20 04:18 Dimorphic RBCs Cancelled 11/01/20 05:10 Polychromasia Cancelled 11/01/20 05:10 Hypochromasia Slight A 11/07/20 04:34 Poikilocytosis Cancelled 11/01/20 05:10 Basophilic Stippling Cancelled 11/01/20 05:10 Anisocytosis Slight A 11/22/20 04:18 Microcytosis Cancelled 11/01/20 05:10 Macrocytosis Slight A 11/07/20 04:34 Spherocytes Cancelled 11/01/20 05:10 Pappenheimer Bodies Cancelled 11/01/20 05:10 Sickle Cells Cancelled 11/01/20 05:10 Target Cells Cancelled 11/01/20 05:10 Tear Drop Cells Cancelled 11/01/20 05:10 Ovalocytes Cancelled 11/01/20 05:10 Stomatocytes Present 11/22/20 04:18 Helmet Cells Cancelled 11/01/20 05:10 [place]ian[place] Bodies Cancelled 11/01/20 05:10 [place] Rings Cancelled 11/01/20 05:10 [place] Cells Cancelled 11/01/20 05:10 Crenated Cell Cancelled 11/01/20 05:10 Acanthocytes (Spur) Cancelled 11/01/20 05:10 Rouleaux Cancelled 11/01/20 05:10 Schistocytes Cancelled 11/01/20 05:10 PT 15.7 SECONDS (11.8-14.3) 11/06/20 04:27 INR Target Range - 11/06/20 04:27 INR 1.31 (0.8-1.3) H 11/06/20 04:27 D-Dimer 1.01 ug/ml (0.0-0.57) H* 11/13/20 04:04 Sample Site Art line 11/22/20 04:22 ABG pH 7.430 (7.35-7.45) 11/22/20 04:22 ABG pCO2 62.0 mmHg (35.0-45.0) H* 11/22/20 04:22 ABG pO2 72.0 mmHg (80.0-100.0) L 11/22/20 04:22 ABG HCO3 41.2 mmol/L (22-26) H* 11/22/20 04:22 ABG O2 Saturation 95.0 % (90-100) 11/22/20 04:22 ABG Base Excess 14.2 mmol/L (-2.0-2.0) H 11/22/20 04:22 Loyd Test N/a 11/22/20 04:22 A-a Gradient 564.0 mmHg 11/22/20 04:22 FiO2 100.0 11/22/20 04:22 Blood Gas Comments Coby well mts 11/22/20 04:22 Sodium 138 mmol/L (136-145) 11/22/20 04:18 Corrected Sodium 142 mmol/L (136-145) 11/22/20 04:18 Potassium 3.5 mmol/L (3.5-5.1) 11/22/20 04:18 Chloride 97 mmol/L (98-107) L 11/22/20 04:18 Carbon Dioxide 36.0 mmol/L (21-32) H 11/22/20 04:18 BUN 14 mg/dL (7-18) 11/22/20 04:18 Creatinine 0.34 mg/dL (0.55-1.02) L 11/22/20 04:18 Est GFR (MDRD) Af Amer > 60 (>60) 11/22/20 04:18 Est GFR (MDRD) Non-Af > 60 (>60) 11/22/20 04:18 Glucose 264 mg/dL (65-99) H 11/22/20 04:18 POC Glucose (mg/dL) 299 mg/dL (65-99) H 11/22/20 07:39 Calcium 8.6 mg/dL (8.5-10.1) 11/22/20 04:18 Corrected Calcium TNP 11/22/20 04:18 Phosphorus 2.2 mg/dL (2.6-4.7) L 11/01/20 05:10 Magnesium 2.8 mg/dL (1.7-2.9) 11/18/20 05:02 Ferritin 531 ng/mL (8-252) H 10/12/20 05:33 Total Bilirubin 1.90 mg/dL (0.2-1.0) H 11/22/20 04:18 AST 117 Units/L (15-37) H 11/22/20 04:18 ALT 242 Units/L (12-78) H 11/22/20 04:18 Alkaline Phosphatase 169 Units/L (46-116) H 11/22/20 04:18 Creatine Kinase 180 Units/L (26-192) 10/07/20 11:49 CK-MB (CK-2) < 1.0 ng/mL (0-4.0) 10/07/20 11:49 CK/CKMB % Calc 0.6 % (<4) 10/07/20 11:49 Troponin I < 0.02 ng/mL (0-1.5) 10/07/20 11:49 C-Reactive Protein 14.40 mg/L (0-3.0) H 11/13/20 04:04 B-Natriuretic Peptide 32.1 pg/mL (0-79) 11/13/20 04:04 Total Protein 6.2 g/dL (6.4-8.2) L 11/22/20 04:18 Albumin 3.8 g/dL (3.4-5.0) 11/22/20 04:18 Globulin 2.4 g/dL (2.5-4.5) L 11/22/20 04:18 Albumin/Globulin Ratio 1.6 Ratio (1.1-2.1) 11/22/20 04:18 Prealbumin 23.7 mg/dL (18-35.7) 11/08/20 03:40 Triglycerides 168 mg/dL (0-150) H 11/01/20 05:10 Specimen Type Catherized urine 11/11/20 14:05 Urine Color Yellow (YELLOW) 11/11/20 14:05 Urine Appearance Hazy (CLEAR) 11/11/20 14:05 Urine pH 7.0 (5.0 - 8.0) 11/11/20 14:05 Ur Specific Cassatt 1.015 (1.000-1.030) 11/11/20 14:05 Urine Protein 2+ (NEGATIVE) 11/11/20 14:05 Urine Glucose (UA) Negative (NEGATIVE) 11/11/20 14:05 Urine Ketones Negative (NEGATIVE) 11/11/20 14:05 Urine Occult Blood 5+ (NEGATIVE) 11/11/20 14:05 Urine Nitrite Negative (NEGATIVE) 11/11/20 14:05 Urine Bilirubin Negative (NEGATIVE) 11/11/20 14:05 Urine Urobilinogen Normal (NORMAL) 11/11/20 14:05 Ur Leukocyte Esterase 1+ (NEGATIVE) 11/11/20 14:05 Urine RBC Tntc /HPF (0-3) A 11/11/20 14:05 Urine WBC 10-20 /HPF (0-5) A 11/11/20 14:05 Ur Squamous Epith Cells Negative /HPF (NEGATIVE) 11/11/20 14:05 Ur Renal Epithelial Cell Rare /HPF (NEGATIVE) 11/11/20 14:05 Urine Bacteria 1+ /HPF (NEGATIVE) 11/11/20 14:05 Urine Yeast Many /HPF (NEGATIVE) 11/11/20 14:05 Ur Culture Indicated? Yes/culture set up 11/11/20 14:05 Resp Viral Panel (PCR) See scanned report 11/12/20 14:54 Blood Type A POSITIVE 11/08/20 10:20 Antibody Screen Negative 11/08/20 10:20 Crossmatch See Detail 11/08/20 10:20 - Plan (1) Pneumonia due to COVID-19 virus Status: Acute Plan: MECHANICAL VENT, IV FLUIDS, POTASSIUM AND MAGNESIUM REPLACEMENT, IV ANTIBIOTICS, IV STEROIDS, IV DIFLUCAN, NEBULIZER TREATMENTS, RESPIRATORY THERAPY, VERSED FOR SEDATION, ENTERAL NUTRITION, GLUCOSE MONITORING WITH SLIDING SCALE COVERAGE. (2) ARDS (adult respiratory distress syndrome) Status: Acute (3) Pneumothorax Status: Acute Qualifiers: Pneumothorax type: unspecified pneumothorax Qualified Code(s): J93.9 - Pneumothorax, unspecified Plan: CHEST TUBE (4) Hypoxia Status: Acute Plan: Ween down FiO2 as tolerated by patient. (5) Thrombocytopenia Status: Acute Plan: Monitor platelets. (6) Anemia Status: Acute Qualifiers: Anemia type: iron deficiency Iron deficiency anemia type: chronic blood loss Qualified Code(s): D50.0 - Iron deficiency anemia secondary to blood loss (chronic) Plan: Monitor Hb.
[2020-11-22] MEDS: D5W 1000 ML IV 1,000 ML IV SCH ×2 (08:46→21:43)
[2020-11-22] MEDS: BROVANA IN SCH ×2 (08:50→21:07)
[2020-11-22] MEDS: PULMICORT NEB TX 0.5 MG NEB SCH ×2 (08:50→21:07)
[2020-11-22] MEDS: ALBUMIN HUMAN 25%- 100 ML 100 ML IV SCH (09:41)
[2020-11-22] MEDS: BUTT CREAM (COMPOUND) TOP SCH ×2 (09:43→21:00)
[2020-11-22] MEDS: DIAMOX PO SCH (09:43)
[2020-11-22] MEDS: DIFLUCAN 200 MG IV PREMIX* 200 MG/100 ML BAG IV SCH (09:43)
[2020-11-22] MEDS: INVANZ INJ 1 GM VIAL 1 GM in NS 100 ML IV + SPIKE MINIBAG* 100 ML IV SCH (09:44)
[2020-11-22] MEDS: ELIQUIS NG SCH ×2 (09:44→21:00)
[2020-11-22] MEDS: LEVEMIR SC SCH ×2 (09:45→21:50)
[2020-11-22] MEDS: THIAMINE HCL INJ IVP SCH ×2 (09:46→21:00)
[2020-11-22] MEDS: PROTONIX INJ 40 MG VIAL IVP SCH (09:46)
[2020-11-22] MEDS: NYSTATIN CREAM TOP SCH ×2 (09:46→21:00)
[2020-11-22] MEDS: NYSTATIN POWDER TOP SCH ×2 (09:46→21:00)
[2020-11-22] MEDS: MILK OF MAGNESIA NG SCH ×2 (09:46→21:51)
[2020-11-22] MEDS: VITAMIN D3 125 mcg (5,000 UNITS) NG SCH (09:47)
--- NOTE | 2020-11-22 10:08 | DR.PROGNOT ---
Hospital Progress Notes - Progress Note for Day of: Progress Note Date: 11/22/20 - Chief Complaint Chief Complaint: chest X Ray today showed complete expansion RT lung . mild fuid drainage in CT . O2 sat above 90 . no changes otherwise .. - Past Medical Family Social History Past Med/Fam/Surg Hx: No changes since H&P Allergies: Allergies ibuprofen Adverse Reaction (Verified 10/06/20 20:57) abd pain - Review Of Systems ROS: No change since H&P - Vital Signs Vital Signs: Temperature 98.8 F Pulse Rate [Apical] 71 Pulse Rate [Left] 81 Pulse Rate 95 Respiratory Rate 32 Blood Pressure [Right Arm] 117/65 Blood Pressure [Left Arm] 147/90 Blood Pressure 153/80 O2 Sat by Pulse Oximetry 91 - Physical Exam Oriented: Unable to test Eyes: Normal Ear: Normal Nose: Normal Throat: Normal Respiratory: Generalized, Diminished Cardiovascular: Normal : Normal GI:Auscultation: Normal GI:Palpation: Normal GI: Tenderness: Normal Skin: Normal Musculoskeletal: Normal Psychiatric: Normal Mood Description: Anxious Affect: Anxious Speech Pattern: Artificially Ventilated - Laboratory and Diagnostics Result Diagrams: 11/22/20 04:18 11/22/20 04:18 Labs: 11/11/20 14:05 Urine,Catheterized Urine Culture - Final 11/12/20 14:54 Sputum - Endotracheal Wash Sputum Culture - Final 11/12/20 14:54 Sputum - Endotracheal Wash - Final 10/24/20 20:55 Sputum - Endotracheal Wash Sputum Culture - Final 10/24/20 20:55 Sputum - Endotracheal Wash - Final 10/07/20 11:51 Blood Blood Culture - Final 10/07/20 11:49 Blood Blood Culture - Final Laboratory WBC 14.5 X10^3/uL (3.6-10.0) H 11/22/20 04:18 RBC 2.94 X10^6/uL (3.5-5.4) L 11/22/20 04:18 Hgb 9.6 g/dL (12.0-16.0) L 11/22/20 04:18 Hct 28.3 % (36.0-47.0) L 11/22/20 04:18 MCV 96.5 fL (80.0-100.0) 11/22/20 04:18 MCH 32.6 pg (27.0-34.0) 11/22/20 04:18 MCHC 33.8 g/dL (33.0-35.0) 11/22/20 04:18 RDW 18.3 % (11.6-16.5) H 11/22/20 04:18 Plt Count 190 X10^3/uL (150.0-450.0) 11/22/20 04:18 Plt Count Comment Adequate (ADEQUATE) 11/22/20 04:18 MPV 9.6 fL (7.4-11.0) 11/22/20 04:18 Neut % (Auto) 90.0 % (42.0-75.0) H 11/22/20 04:18 Lymph % (Auto) 5.5 % (21.0-51.0) L 11/22/20 04:18 [place] % (Auto) 4.3 % (0.0-13.0) 11/22/20 04:18 Eos % (Auto) 0.0 % (0.9-2.9) L 11/22/20 04:18 Baso % (Auto) 0.2 % (0.2-1.0) 11/22/20 04:18 Neut # (Auto) 13.1 x10^3/uL (2.2-4.8) H 11/22/20 04:18 Lymph # (Auto) 0.8 X10^3/uL (1.3-2.9) L 11/22/20 04:18 [place] # (Auto) 0.6 x10^3/uL (0.3-0.8) 11/22/20 04:18 Eos # (Auto) 0.0 x10^3/uL (0.0-0.2) 11/22/20 04:18 Baso # (Auto) 0.0 X10^3/uL (0.0-0.1) 11/22/20 04:18 Absolute Nucleated RBC 0.3 /100WBC 11/22/20 04:18 Total Counted 100 11/22/20 04:18 Neutrophils % (Manual) 90 % (39-76) H 11/22/20 04:18 Band Neutrophils % 3 % (0-10) 11/22/20 04:18 Lymphocytes % (Manual) 5 % (13-43) L 11/22/20 04:18 Monocytes % (Manual) 2 % (4-9) L 11/22/20 04:18 Eosinophils % (Manual) 1 % (0-6) 11/07/20 04:34 Basophils % (Manual) Cancelled 11/01/20 05:10 Metamyelocytes % Cancelled 11/01/20 05:10 Myelocytes % Cancelled 11/01/20 05:10 Promyelocytes % Cancelled 11/01/20 05:10 Nucleated RBCs Cancelled 11/01/20 05:10 Atypical Lymphocytes Cancelled 11/01/20 05:10 Blast Cells Cancelled 11/01/20 05:10 Smudge Cells Cancelled 11/01/20 05:10 Toxic Granulation Cancelled 11/01/20 05:10 Dohle Bodies Cancelled 11/01/20 05:10 Gutierrez Rods Cancelled 11/01/20 05:10 Plt Clumps, EDTA Cancelled 11/01/20 05:10 Giant Platelets Cancelled 11/01/20 05:10 Plt Morphology Comment Normal (NORMAL) 11/22/20 04:18 RBC Morphology Abnormal (NORMAL) A 11/22/20 04:18 Dimorphic RBCs Cancelled 11/01/20 05:10 Polychromasia Cancelled 11/01/20 05:10 Hypochromasia Slight A 11/07/20 04:34 Poikilocytosis Cancelled 11/01/20 05:10 Basophilic Stippling Cancelled 11/01/20 05:10 Anisocytosis Slight A 11/22/20 04:18 Microcytosis Cancelled 11/01/20 05:10 Macrocytosis Slight A 11/07/20 04:34 Spherocytes Cancelled 11/01/20 05:10 Pappenheimer Bodies Cancelled 11/01/20 05:10 Sickle Cells Cancelled 11/01/20 05:10 Target Cells Cancelled 11/01/20 05:10 Tear Drop Cells Cancelled 11/01/20 05:10 Ovalocytes Cancelled 11/01/20 05:10 Stomatocytes Present 11/22/20 04:18 Helmet Cells Cancelled 11/01/20 05:10 [place] Bodies Cancelled 11/01/20 05:10 [place] Rings Cancelled 11/01/20 05:10 [place] Cells Cancelled 11/01/20 05:10 Crenated Cell Cancelled 11/01/20 05:10 Acanthocytes (Spur) Cancelled 11/01/20 05:10 Rouleaux Cancelled 11/01/20 05:10 Schistocytes Cancelled 11/01/20 05:10 PT 15.7 SECONDS (11.8-14.3) 11/06/20 04:27 INR Target Range - 11/06/20 04:27 INR 1.31 (0.8-1.3) H 11/06/20 04:27 D-Dimer 1.01 ug/ml (0.0-0.57) H* 11/13/20 04:04 Sample Site Art line 11/22/20 04:22 ABG pH 7.430 (7.35-7.45) 11/22/20 04:22 ABG pCO2 62.0 mmHg (35.0-45.0) H* 11/22/20 04:22 ABG pO2 72.0 mmHg (80.0-100.0) L 11/22/20 04:22 ABG HCO3 41.2 mmol/L (22-26) H* 11/22/20 04:22 ABG O2 Saturation 95.0 % (90-100) 11/22/20 04:22 ABG Base Excess 14.2 mmol/L (-2.0-2.0) H 11/22/20 04:22 Loyd Test N/a 11/22/20 04:22 A-a Gradient 564.0 mmHg 11/22/20 04:22 FiO2 100.0 11/22/20 04:22 Blood Gas Comments [facility]y well mts 11/22/20 04:22 Sodium 138 mmol/L (136-145) 11/22/20 04:18 Corrected Sodium 142 mmol/L (136-145) 11/22/20 04:18 Potassium 3.5 mmol/L (3.5-5.1) 11/22/20 04:18 Chloride 97 mmol/L (98-107) L 11/22/20 04:18 Carbon Dioxide 36.0 mmol/L (21-32) H 11/22/20 04:18 BUN 14 mg/dL (7-18) 11/22/20 04:18 Creatinine 0.34 mg/dL (0.55-1.02) L 11/22/20 04:18 Est GFR (MDRD) Af Amer > 60 (>60) 11/22/20 04:18 Est GFR (MDRD) Non-Af > 60 (>60) 11/22/20 04:18 Glucose 264 mg/dL (65-99) H 11/22/20 04:18 POC Glucose (mg/dL) 299 mg/dL (65-99) H 11/22/20 07:39 Calcium 8.6 mg/dL (8.5-10.1) 11/22/20 04:18 Corrected Calcium TNP 11/22/20 04:18 Phosphorus 2.2 mg/dL (2.6-4.7) L 11/01/20 05:10 Magnesium 2.8 mg/dL (1.7-2.9) 11/18/20 05:02 Ferritin 531 ng/mL (8-252) H 10/12/20 05:33 Total Bilirubin 1.90 mg/dL (0.2-1.0) H 11/22/20 04:18 AST 117 Units/L (15-37) H 11/22/20 04:18 ALT 242 Units/L (12-78) H 11/22/20 04:18 Alkaline Phosphatase 169 Units/L (46-116) H 11/22/20 04:18 Creatine Kinase 180 Units/L (26-192) 10/07/20 11:49 CK-MB (CK-2) < 1.0 ng/mL (0-4.0) 10/07/20 11:49 CK/CKMB % Calc 0.6 % (<4) 10/07/20 11:49 Troponin I < 0.02 ng/mL (0-1.5) 10/07/20 11:49 C-Reactive Protein 14.40 mg/L (0-3.0) H 11/13/20 04:04 B-Natriuretic Peptide 32.1 pg/mL (0-79) 11/13/20 04:04 Total Protein 6.2 g/dL (6.4-8.2) L 11/22/20 04:18 Albumin 3.8 g/dL (3.4-5.0) 11/22/20 04:18 Globulin 2.4 g/dL (2.5-4.5) L 11/22/20 04:18 Albumin/Globulin Ratio 1.6 Ratio (1.1-2.1) 11/22/20 04:18 Prealbumin 23.7 mg/dL (18-35.7) 11/08/20 03:40 Triglycerides 168 mg/dL (0-150) H 11/01/20 05:10 Specimen Type Catherized urine 11/11/20 14:05 Urine Color Yellow (YELLOW) 11/11/20 14:05 Urine Appearance Hazy (CLEAR) 11/11/20 14:05 Urine pH 7.0 (5.0 - 8.0) 11/11/20 14:05 Ur Specific [place] 1.015 (1.000-1.030) 11/11/20 14:05 Urine Protein 2+ (NEGATIVE) 11/11/20 14:05 Urine Glucose (UA) Negative (NEGATIVE) 11/11/20 14:05 Urine Ketones Negative (NEGATIVE) 11/11/20 14:05 Urine Occult Blood 5+ (NEGATIVE) 11/11/20 14:05 Urine Nitrite Negative (NEGATIVE) 11/11/20 14:05 Urine Bilirubin Negative (NEGATIVE) 11/11/20 14:05 Urine Urobilinogen Normal (NORMAL) 11/11/20 14:05 Ur Leukocyte Esterase 1+ (NEGATIVE) 11/11/20 14:05 Urine RBC Tntc /HPF (0-3) A 11/11/20 14:05 Urine WBC 10-20 /HPF (0-5) A 11/11/20 14:05 Ur Squamous Epith Cells Negative /HPF (NEGATIVE) 11/11/20 14:05 Ur Renal Epithelial Cell Rare /HPF (NEGATIVE) 11/11/20 14:05 Urine Bacteria 1+ /HPF (NEGATIVE) 11/11/20 14:05 Urine Yeast Many /HPF (NEGATIVE) 11/11/20 14:05 Ur Culture Indicated? Yes/culture set up 11/11/20 14:05 Resp Viral Panel (PCR) See scanned report 11/12/20 14:54 Blood Type A POSITIVE 11/08/20 10:20 Antibody Screen Negative 11/08/20 10:20 Crossmatch See Detail 11/08/20 10:20 - Assessment and Plan 2: resolved RT pneumothorax with chest tube . . severe Covid lung disaease . same plan . keep chest tube in place for now and low suction .. .. - Problem Patient Problems: Patient Problems Pneumothorax (Acute) J93.9 COVID-19 (Acute) U07.1 Acute dehydration (Acute) E86.0 Insufficiency, respiratory, acute (Acute) R06.89 Bilateral interstitial pneumonia (Acute) J84.9 Other headache syndrome (Acute) G44.89 Pneumonia due to COVID-19 virus (Acute) U07.1, J12.82 Hypoxia (Acute) R09.02 ARDS (adult respiratory distress syndrome) (Acute) J80 Thrombocytopenia (Acute) D69.6 Anemia (Acute) D64.9
[2020-11-22] MEDS ORDERED: PHARMACY CONSULT - VANCOMYCIN XX SCH (11:00)
--- NOTE | 2020-11-22 11:00 | PCM.PROG ---
Progress Note - Progress Note for Day of Date of Exam: 11/22/20 - Subjective Subjective: MS. RICHARDS WAS ADMITTED FOR TREATMENT OF COVID PNEUMONIA AND HYPOXIA. HX OBESITY, OTHERWISE, NO SIGNIFICANT PMH. SHE REMAINS IN THE INTENSIVE CARE UNIT. SHE WAS INTUBATED ON 10/24 DUE TO RESPIRATORY FAILURE. TRACHEOSTOMY WAS INSERTED ON 11/07. CHEST TUBE WAS INSERTED ON 11/19 DUE TO LARGE PNEU MOTHORAX. HER VENT SETTINGS THIS MORNING ARE: A/C, RATE 30, TIDAL VOLUME 400, PEEP 12, FI02 90. SATURATIONS HAVE BEEN 90-96% THROUGHOUT THE NIGHT. ON EXAMINATION, HEART IS REGULAR IN RATE AND RHYTHM. NG TUBE NOTED. BILATERAL LUNGS ARE NOTED WITH DIMINISHED LUNG SOUNDS THROUGHOUT. RIGHT SIDED CHEST TUBE NOTED. ABDOMEN IS ROUND, SOFT, AND NON-TENDER WITH NORMAL BOWEL SOUNDS NOTED IN ALL QUADRANTS. MATHIS CATHETER TO BEDSIDE DRAINAGE. HER VITALS THIS MORNING ARE: 98.8-95-32-91%-153/80. LABS WERE OBTAINED. ABNORMAL LAB VALUES INCLUDE THE FOLLOWING: WBC 14.5, RBC 2.94, HGB 9.6, HCT 28.3, CHLORIDE 97, CARBON DIOXIDE 36, CREATININE 0.34, GLUCOSE 264, TOTAL PROTEIN 1.90, AST 117, CHUCKIE 242, ALK PHOS 169, TOTAL PROTEIN 6.2. ABG REVEALED: PH 7.430, PC02 62, P02 72, HC03 41.2, 02 SAT 95, BASE EXCESS 14.2, A-A GRADIENT 564, FI02 100. CHEST XRAY WAS OBTAINED AND REVEALED: Diffuse interstitial infiltrates throughout the right lung with some increasing density in the medial right lower lobe which could represent developing consolidation or subsegmental atelectasis. The left lung is clear. SEDATIONS HAS BEEN COMPLETELY OFF SINCE THURSDAY. PATIENT HAS HAD NO MEANINGFUL RESPONSE AND WAS NOT ABLE TO ADDEQUATELY MAINTAIN RESPIRATORY EFFORTS DESPITE SEDATIONS BEING OFF. WE WILL CONTINUE WITH HER NEBULIZER TREATMENTS, IV FLUIDS, STEROIDS, BLOOD GLUCOSE CONTROL, ENTERAL FEEDINGS, PRN ANTI-HYPERTENSIVES, AND CURRENT PLAN OF CARE. DUE TO INCREASED WBC, W WILL ADD FORTAZ AND VANCOMYCIN. OTHERWISE, WE WILL FOLLOW UP WITH AM LABS, CHEST XRAY, ABG, AND CONTINUE TO MONITOR. TIME SPENT ON CLINICAL ASSESSMENT, REVIEWING LABS AND IMAGING, DECISION MAKING, AND DOCUMENTATION GREATER THAN 75 MINUTES. - Past Medical Family Social History Past Med/Fam/Surg Hx: No changes since H&P Allergies: Allergies ibuprofen Adverse Reaction (Verified 10/06/20 20:57) abd pain - Review of Systems ROS: No change since H&P - Vital Signs and I&O's Vital Signs: Temperature 98.8 F Pulse Rate [Apical] 71 Pulse Rate [Left] 81 Pulse Rate 95 Respiratory Rate 32 Blood Pressure [Right Arm] 117/65 Blood Pressure [Left Arm] 147/90 Blood Pressure 153/80 O2 Sat by Pulse Oximetry 91 Intake and Output: Intake & Output 11/19/20 11/20/20 11/21/20 11/22/20 11:59 11:59 11:59 11:59 Intake Total 4820 / 4820 3650 / 3650 2393 / 2393 1667 / 1667 Output Total 3815 / 3815 3466 / 3466 2150 / 2150 3065 / 3065 Balance 1005 / 1005 184 / 184 243 / 243 -1398 / -1398 - Physical Exam Oriented: Unable to test Eyes: Normal Ear: Normal Nose: Normal Throat: Normal Respiratory: Generalized, Diminished Cardiovascular: Normal : Normal Auscultation: Bowel Sounds: Normal Palpation: Normal Tenderness: Normal Skin: Normal Musculoskeletal: Normal Psychiatric: Normal Mood Description: Anxious Affect: Anxious Speech Pattern: Artificially Ventilated - Laboratory and Diagnostics Result Diagrams: 11/22/20 04:18 11/22/20 04:18 Labs: 11/11/20 14:05 Urine,Catheterized Urine Culture - Final 11/12/20 14:54 Sputum - Endotracheal Wash Sputum Culture - Final 11/12/20 14:54 Sputum - Endotracheal Wash - Final 10/24/20 20:55 Sputum - Endotracheal Wash Sputum Culture - Final 10/24/20 20:55 Sputum - Endotracheal Wash - Final 10/07/20 11:51 Blood Blood Culture - Final 10/07/20 11:49 Blood Blood Culture - Final Laboratory WBC 14.5 X10^3/uL (3.6-10.0) H 11/22/20 04:18 RBC 2.94 X10^6/uL (3.5-5.4) L 11/22/20 04:18 Hgb 9.6 g/dL (12.0-16.0) L 11/22/20 04:18 Hct 28.3 % (36.0-47.0) L 11/22/20 04:18 MCV 96.5 fL (80.0-100.0) 11/22/20 04:18 MCH 32.6 pg (27.0-34.0) 11/22/20 04:18 MCHC 33.8 g/dL (33.0-35.0) 11/22/20 04:18 RDW 18.3 % (11.6-16.5) H 11/22/20 04:18 Plt Count 190 X10^3/uL (150.0-450.0) 11/22/20 04:18 Plt Count Comment Adequate (ADEQUATE) 11/22/20 04:18 MPV 9.6 fL (7.4-11.0) 11/22/20 04:18 Neut % (Auto) 90.0 % (42.0-75.0) H 11/22/20 04:18 Lymph % (Auto) 5.5 % (21.0-51.0) L 11/22/20 04:18 [place] % (Auto) 4.3 % (0.0-13.0) 11/22/20 04:18 Eos % (Auto) 0.0 % (0.9-2.9) L 11/22/20 04:18 Baso % (Auto) 0.2 % (0.2-1.0) 11/22/20 04:18 Neut # (Auto) 13.1 x10^3/uL (2.2-4.8) H 11/22/20 04:18 Lymph # (Auto) 0.8 X10^3/uL (1.3-2.9) L 11/22/20 04:18 [place] # (Auto) 0.6 x10^3/uL (0.3-0.8) 11/22/20 04:18 Eos # (Auto) 0.0 x10^3/uL (0.0-0.2) 11/22/20 04:18 Baso # (Auto) 0.0 X10^3/uL (0.0-0.1) 11/22/20 04:18 Absolute Nucleated RBC 0.3 /100WBC 11/22/20 04:18 Total Counted 100 11/22/20 04:18 Neutrophils % (Manual) 90 % (39-76) H 11/22/20 04:18 Band Neutrophils % 3 % (0-10) 11/22/20 04:18 Lymphocytes % (Manual) 5 % (13-43) L 11/22/20 04:18 Monocytes % (Manual) 2 % (4-9) L 11/22/20 04:18 Eosinophils % (Manual) 1 % (0-6) 11/07/20 04:34 Basophils % (Manual) Cancelled 11/01/20 05:10 Metamyelocytes % Cancelled 11/01/20 05:10 Myelocytes % Cancelled 11/01/20 05:10 Promyelocytes % Cancelled 11/01/20 05:10 Nucleated RBCs Cancelled 11/01/20 05:10 Atypical Lymphocytes Cancelled 11/01/20 05:10 Blast Cells Cancelled 11/01/20 05:10 Smudge Cells Cancelled 11/01/20 05:10 Toxic Granulation Cancelled 11/01/20 05:10 Dohle Bodies Cancelled 11/01/20 05:10 Gutierrez Rods Cancelled 11/01/20 05:10 Plt Clumps, EDTA Cancelled 11/01/20 05:10 Giant Platelets Cancelled 11/01/20 05:10 Plt Morphology Comment Normal (NORMAL) 11/22/20 04:18 RBC Morphology Abnormal (NORMAL) A 11/22/20 04:18 Dimorphic RBCs Cancelled 11/01/20 05:10 Polychromasia Cancelled 11/01/20 05:10 Hypochromasia Slight A 11/07/20 04:34 Poikilocytosis Cancelled 11/01/20 05:10 Basophilic Stippling Cancelled 11/01/20 05:10 Anisocytosis Slight A 11/22/20 04:18 Microcytosis Cancelled 11/01/20 05:10 Macrocytosis Slight A 11/07/20 04:34 Spherocytes Cancelled 11/01/20 05:10 Pappenheimer Bodies Cancelled 11/01/20 05:10 Sickle Cells Cancelled 11/01/20 05:10 Target Cells Cancelled 11/01/20 05:10 Tear Drop Cells Cancelled 11/01/20 05:10 Ovalocytes Cancelled 11/01/20 05:10 Stomatocytes Present 11/22/20 04:18 Helmet Cells Cancelled 11/01/20 05:10 [place] Bodies Cancelled 11/01/20 05:10 [place] Rings Cancelled 11/01/20 05:10 [place] Cells Cancelled 11/01/20 05:10 Crenated Cell Cancelled 11/01/20 05:10 Acanthocytes (Spur) Cancelled 11/01/20 05:10 Rouleaux Cancelled 11/01/20 05:10 Schistocytes Cancelled 11/01/20 05:10 PT 15.7 SECONDS (11.8-14.3) 11/06/20 04:27 INR Target Range - 11/06/20 04:27 INR 1.31 (0.8-1.3) H 11/06/20 04:27 D-Dimer 1.01 ug/ml (0.0-0.57) H* 11/13/20 04:04 Sample Site Art line 11/22/20 04:22 ABG pH 7.430 (7.35-7.45) 11/22/20 04:22 ABG pCO2 62.0 mmHg (35.0-45.0) H* 11/22/20 04:22 ABG pO2 72.0 mmHg (80.0-100.0) L 11/22/20 04:22 ABG HCO3 41.2 mmol/L (22-26) H* 11/22/20 04:22 ABG O2 Saturation 95.0 % (90-100) 11/22/20 04:22 ABG Base Excess 14.2 mmol/L (-2.0-2.0) H 11/22/20 04:22 Loyd Test N/a 11/22/20 04:22 A-a Gradient 564.0 mmHg 11/22/20 04:22 FiO2 100.0 11/22/20 04:22 Blood Gas Comments Coby well mts 11/22/20 04:22 Sodium 138 mmol/L (136-145) 11/22/20 04:18 Corrected Sodium 142 mmol/L (136-145) 11/22/20 04:18 Potassium 3.5 mmol/L (3.5-5.1) 11/22/20 04:18 Chloride 97 mmol/L (98-107) L 11/22/20 04:18 Carbon Dioxide 36.0 mmol/L (21-32) H 11/22/20 04:18 BUN 14 mg/dL (7-18) 11/22/20 04:18 Creatinine 0.34 mg/dL (0.55-1.02) L 11/22/20 04:18 Est GFR (MDRD) Af Amer > 60 (>60) 11/22/20 04:18 Est GFR (MDRD) Non-Af > 60 (>60) 11/22/20 04:18 Glucose 264 mg/dL (65-99) H 11/22/20 04:18 POC Glucose (mg/dL) 299 mg/dL (65-99) H 11/22/20 07:39 Calcium 8.6 mg/dL (8.5-10.1) 11/22/20 04:18 Corrected Calcium TNP 11/22/20 04:18 Phosphorus 2.2 mg/dL (2.6-4.7) L 11/01/20 05:10 Magnesium 2.8 mg/dL (1.7-2.9) 11/18/20 05:02 Ferritin 531 ng/mL (8-252) H 10/12/20 05:33 Total Bilirubin 1.90 mg/dL (0.2-1.0) H 11/22/20 04:18 AST 117 Units/L (15-37) H 11/22/20 04:18 ALT 242 Units/L (12-78) H 11/22/20 04:18 Alkaline Phosphatase 169 Units/L (46-116) H 11/22/20 04:18 Creatine Kinase 180 Units/L (26-192) 10/07/20 11:49 CK-MB (CK-2) < 1.0 ng/mL (0-4.0) 10/07/20 11:49 CK/CKMB % Calc 0.6 % (<4) 10/07/20 11:49 Troponin I < 0.02 ng/mL (0-1.5) 10/07/20 11:49 C-Reactive Protein 14.40 mg/L (0-3.0) H 11/13/20 04:04 B-Natriuretic Peptide 32.1 pg/mL (0-79) 11/13/20 04:04 Total Protein 6.2 g/dL (6.4-8.2) L 11/22/20 04:18 Albumin 3.8 g/dL (3.4-5.0) 11/22/20 04:18 Globulin 2.4 g/dL (2.5-4.5) L 11/22/20 04:18 Albumin/Globulin Ratio 1.6 Ratio (1.1-2.1) 11/22/20 04:18 Prealbumin 23.7 mg/dL (18-35.7) 11/08/20 03:40 Triglycerides 168 mg/dL (0-150) H 11/01/20 05:10 Specimen Type Catherized urine 11/11/20 14:05 Urine Color Yellow (YELLOW) 11/11/20 14:05 Urine Appearance Hazy (CLEAR) 11/11/20 14:05 Urine pH 7.0 (5.0 - 8.0) 11/11/20 14:05 Ur Specific [place] 1.015 (1.000-1.030) 11/11/20 14:05 Urine Protein 2+ (NEGATIVE) 11/11/20 14:05 Urine Glucose (UA) Negative (NEGATIVE) 11/11/20 14:05 Urine Ketones Negative (NEGATIVE) 11/11/20 14:05 Urine Occult Blood 5+ (NEGATIVE) 11/11/20 14:05 Urine Nitrite Negative (NEGATIVE) 11/11/20 14:05 Urine Bilirubin Negative (NEGATIVE) 11/11/20 14:05 Urine Urobilinogen Normal (NORMAL) 11/11/20 14:05 Ur Leukocyte Esterase 1+ (NEGATIVE) 11/11/20 14:05 Urine RBC Tntc /HPF (0-3) A 11/11/20 14:05 Urine WBC 10-20 /HPF (0-5) A 11/11/20 14:05 Ur Squamous Epith Cells Negative /HPF (NEGATIVE) 11/11/20 14:05 Ur Renal Epithelial Cell Rare /HPF (NEGATIVE) 11/11/20 14:05 Urine Bacteria 1+ /HPF (NEGATIVE) 11/11/20 14:05 Urine Yeast Many /HPF (NEGATIVE) 11/11/20 14:05 Ur Culture Indicated? Yes/culture set up 11/11/20 14:05 Resp Viral Panel (PCR) See scanned report 11/12/20 14:54 Blood Type A POSITIVE 11/08/20 10:20 Antibody Screen Negative 11/08/20 10:20 Crossmatch See Detail 11/08/20 10:20 - Plan (1) Pneumonia due to COVID-19 virus Status: Acute Plan: MECHANICAL VENT, IV FLUIDS, POTASSIUM AND MAGNESIUM REPLACEMENT, IV ANTIBIOTICS, IV STEROIDS, IV DIFLUCAN, NEBULIZER TREATMENTS, RESPIRATORY THERAPY, VERSED FOR SEDATION, ENTERAL NUTRITION, GLUCOSE MONITORING WITH SLIDING SCALE COVERAGE. (2) ARDS (adult respiratory distress syndrome) Status: Acute (3) Pneumothorax Status: Acute Qualifiers: Pneumothorax type: unspecified pneumothorax Qualified Code(s): J93.9 - Pneumothorax, unspecified Plan: CHEST TUBE (4) Hypoxia Status: Acute Plan: Ween down FiO2 as tolerated by patient. (5) Thrombocytopenia Status: Acute Plan: Monitor platelets. (6) Anemia Status: Acute Qualifiers: Anemia type: iron deficiency Iron deficiency anemia type: chronic blood loss Qualified Code(s): D50.0 - Iron deficiency anemia secondary to blood loss (chronic) Plan: Monitor Hb.
[2020-11-22] MEDS: LOPRESSOR INJ 5 MG AMP IVP PRN (12:00)
[2020-11-22] MEDS ORDERED: NS 100 ML IV 100 ML ONE (12:02)
[2020-11-22] MEDS: FORTAZ or TAZICEF VIAL INJ 1 G in NS 100 ML IV + SPIKE MINIBAG* 100 ML IV SCH ×3 (12:22→22:20)
[2020-11-22] MEDS: VANCOMYCIN IV *PREMIX 1.25 G/250 ML BAG 1.25 G/250 ML PIGGYBACK IV SCH ×2 (12:30→21:00)
[2020-11-22] MEDS ORDERED: CATAPRES-TTS-1 TD SCH (14:00)
[2020-11-22] MEDS: MORPHINE SULFATE INJ 2 MG INJ IVP PRN ×2 (14:01→17:56)
[2020-11-22] MEDS: SNACK - Diabetic Appropriate PO SCH (21:15)
[2020-11-23] MEDS: HumuLIN R SUBCUT PRN ×3 (00:31→16:57)
[2020-11-23 04:53] LABS: BASOPHILS % (AUTO) 0.2 % (0.2-1.0); HEMATOCRIT 26.9 % (36.0-47.0); HEMOGLOBIN 9.1 g/dL (12.0-16.0); LYMPHOCYTES # (AUTO) 1.4 X10^3/uL (1.3-2.9); LYMPHOCYTES % (AUTO) 6.8 % (21.0-51.0); MEAN CORPUSCULAR HEMOGLOBIN 32.9 pg (27.0-34.0); MEAN CORPUSCULAR VOLUME 96.7 fL (80.0-100.0); MEAN PLATELET VOLUME 9.5 fL (7.4-11.0); MONOCYTES # (AUTO) 1.1 x10^3/uL (0.3-0.8); MONOCYTES % (AUTO) 5.3 % (0.0-13.0); NEUTROPHILS % (AUTO) 87.7 % (42.0-75.0); PLATELET COUNT 180 X10^3/uL (150.0-450.0); RED BLOOD COUNT 2.78 X10^6/uL (3.5-5.4); RED CELL DISTRIBUTION WIDTH 17.9 % (11.6-16.5); WHITE BLOOD COUNT 20.5 X10^3/uL (3.6-10.0)
[2020-11-23 05:00] LABS: ABG BASE EXCESS 9.5 mmol/L (-2.0-2.0); ABG HCO3 37.3 mmol/L (22-26)
[2020-11-23 05:06] LABS: ALANINE AMINOTRANSFERASE 207 Units/L (12-78); ALBUMIN 3.8 g/dL (3.4-5.0); ALKALINE PHOSPHATASE 155 Units/L (46-116); ASPARTATE AMINO TRANSFERASE 115 Units/L (15-37); BLOOD UREA NITROGEN 21 mg/dL (7-18); CALCIUM 8.6 mg/dL (8.5-10.1); CARBON DIOXIDE 33.8 mmol/L (21-32); CHLORIDE 94 mmol/L (98-107); COR NA(FOR HYPERGLY) 137 mmol/L (136-145); CREATININE 0.51 mg/dL (0.55-1.02); SODIUM 133 mmol/L (136-145); TOTAL PROTEIN 6.2 g/dL (6.4-8.2); eGFR NON BLACK RACES > 60 (>60)
[2020-11-23 05:20] LABS: MYELOCYTES % 2; PLATELET MORPHOLOGY COMMENT NORMAL (NORMAL)
[2020-11-23] MEDS: ACCUNEB 1.25 MG NEBULE NEB SCH ×3 (05:42→20:53)
[2020-11-23] MEDS: FORTAZ or TAZICEF VIAL INJ 1 G in NS 100 ML IV + SPIKE MINIBAG* 100 ML IV SCH ×3 (06:00→21:00)
[2020-11-23] MEDS: SOLU-Medrol 40 MG VIAL IVP SCH ×3 (06:00→21:00)
--- NOTE | 2020-11-23 06:15 | RAD ---
HISTORYSOB, COVID+STUDYCHEST, 1 [id number]/14/2021.TECHNIQUEAP view of the chestFINDINGSTracheostomy tube in situ. NG tube courses below the visualized field of view. Cardiac and mediastinal contours are within normal limits. Worsening of mild hazy opacity in the left lung. Right base hazy opacity appears similar. There is a new right pneumothorax with approximately 2.4 cm of pleural apical separation. No definite evidence of tension at this point.IMPRESSIONNew right apical pneumothorax with approximately 2.4 cm of pleural separation. Mild worsening of left lung hazy opacity from COVID 19.Electronically signed by: Saad Sommers (Nov 23, 2020 06:12:45)
[2020-11-23] MEDS: BROVANA IN SCH ×2 (07:53→20:53)
[2020-11-23] MEDS: PULMICORT NEB TX 0.5 MG NEB SCH ×2 (07:53→20:54)
--- NOTE | 2020-11-23 08:16 | DR.PROGNOT ---
Hospital Progress Notes - Progress Note for Day of: Progress Note Date: 11/23/20 - Chief Complaint Chief Complaint: repeated X Ray today showed small RT pneumo thorax in lung apex . with severe Covid ARDS . otherwise no changes .. - Past Medical Family Social History Past Med/Fam/Surg Hx: No changes since H&P Allergies: Allergies ibuprofen Adverse Reaction (Verified 10/06/20 20:57) abd pain - Review Of Systems ROS: No change since H&P - Vital Signs Vital Signs: Temperature 99.7 F Pulse Rate [Apical] 71 Pulse Rate [Left] 81 Pulse Rate 111 Respiratory Rate 31 Blood Pressure [Right Arm] 117/65 Blood Pressure [Left Arm] 147/90 Blood Pressure 179/91 O2 Sat by Pulse Oximetry 81 - Physical Exam Oriented: Unable to test Eyes: Normal Ear: Normal Nose: Normal Throat: Normal Respiratory: Generalized, Diminished Cardiovascular: Normal : Normal GI:Auscultation: Normal GI:Palpation: Normal GI: Tenderness: Normal Skin: Normal Musculoskeletal: Normal Psychiatric: Normal Mood Description: Anxious Affect: Anxious Speech Pattern: Artificially Ventilated - Laboratory and Diagnostics Result Diagrams: 11/23/20 04:19 11/23/20 04:19 Labs: 11/11/20 14:05 Urine,Catheterized Urine Culture - Final 11/12/20 14:54 Sputum - Endotracheal Wash Sputum Culture - Final 11/12/20 14:54 Sputum - Endotracheal Wash - Final 10/24/20 20:55 Sputum - Endotracheal Wash Sputum Culture - Final 10/24/20 20:55 Sputum - Endotracheal Wash - Final 10/07/20 11:51 Blood Blood Culture - Final 10/07/20 11:49 Blood Blood Culture - Final Laboratory WBC 20.5 X10^3/uL (3.6-10.0) H 11/23/20 04:19 RBC 2.78 X10^6/uL (3.5-5.4) L 11/23/20 04:19 Hgb 9.1 g/dL (12.0-16.0) L 11/23/20 04:19 Hct 26.9 % (36.0-47.0) L 11/23/20 04:19 MCV 96.7 fL (80.0-100.0) 11/23/20 04:19 MCH 32.9 pg (27.0-34.0) 11/23/20 04:19 MCHC 34.0 g/dL (33.0-35.0) 11/23/20 04:19 RDW 17.9 % (11.6-16.5) H 11/23/20 04:19 Plt Count 180 X10^3/uL (150.0-450.0) 11/23/20 04:19 Plt Count Comment Adequate (ADEQUATE) 11/23/20 04:19 MPV 9.5 fL (7.4-11.0) 11/23/20 04:19 Neut % (Auto) 87.7 % (42.0-75.0) H 11/23/20 04:19 Lymph % (Auto) 6.8 % (21.0-51.0) L 11/23/20 04:19 [place] % (Auto) 5.3 % (0.0-13.0) 11/23/20 04:19 Eos % (Auto) 0.0 % (0.9-2.9) L 11/23/20 04:19 Baso % (Auto) 0.2 % (0.2-1.0) 11/23/20 04:19 Neut # (Auto) 18.0 x10^3/uL (2.2-4.8) H 11/23/20 04:19 Lymph # (Auto) 1.4 X10^3/uL (1.3-2.9) 11/23/20 04:19 [place] # (Auto) 1.1 x10^3/uL (0.3-0.8) H 11/23/20 04:19 Eos # (Auto) 0.0 x10^3/uL (0.0-0.2) 11/23/20 04:19 Baso # (Auto) 0.0 X10^3/uL (0.0-0.1) 11/23/20 04:19 Absolute Nucleated RBC 0.2 /100WBC 11/23/20 04:19 Total Counted 100 11/23/20 04:19 Neutrophils % (Manual) 92 % (39-76) H 11/23/20 04:19 Band Neutrophils % 3 % (0-10) 11/22/20 04:18 Lymphocytes % (Manual) 6 % (13-43) L 11/23/20 04:19 Monocytes % (Manual) 2 % (4-9) L 11/22/20 04:18 Eosinophils % (Manual) 1 % (0-6) 11/07/20 04:34 Basophils % (Manual) Cancelled 11/01/20 05:10 Metamyelocytes % Cancelled 11/01/20 05:10 Myelocytes % 2 11/23/20 04:19 Promyelocytes % Cancelled 11/01/20 05:10 Nucleated RBCs Cancelled 11/01/20 05:10 Atypical Lymphocytes Cancelled 11/01/20 05:10 Blast Cells Cancelled 11/01/20 05:10 Smudge Cells Cancelled 11/01/20 05:10 Toxic Granulation Cancelled 11/01/20 05:10 Dohle Bodies Cancelled 11/01/20 05:10 Gutierrez Rods Cancelled 11/01/20 05:10 Plt Clumps, EDTA Cancelled 11/01/20 05:10 Giant Platelets Cancelled 11/01/20 05:10 Plt Morphology Comment Normal (NORMAL) 11/23/20 04:19 RBC Morphology Normal (NORMAL) 11/23/20 04:19 Dimorphic RBCs Cancelled 11/01/20 05:10 Polychromasia Cancelled 11/01/20 05:10 Hypochromasia Slight A 11/07/20 04:34 Poikilocytosis Cancelled 11/01/20 05:10 Basophilic Stippling Cancelled 11/01/20 05:10 Anisocytosis Slight A 11/22/20 04:18 Microcytosis Cancelled 11/01/20 05:10 Macrocytosis Slight A 11/07/20 04:34 Spherocytes Cancelled 11/01/20 05:10 Pappenheimer Bodies Cancelled 11/01/20 05:10 Sickle Cells Cancelled 11/01/20 05:10 Target Cells Cancelled 11/01/20 05:10 Tear Drop Cells Cancelled 11/01/20 05:10 Ovalocytes Cancelled 11/01/20 05:10 Stomatocytes Present 11/22/20 04:18 Helmet Cells Cancelled 11/01/20 05:10 [place] Bodies Cancelled 11/01/20 05:10 [place] Rings Cancelled 11/01/20 05:10 [place] Cells Cancelled 11/01/20 05:10 Crenated Cell Cancelled 11/01/20 05:10 Acanthocytes (Spur) Cancelled 11/01/20 05:10 Rouleaux Cancelled 11/01/20 05:10 Schistocytes Cancelled 11/01/20 05:10 PT 15.7 SECONDS (11.8-14.3) 11/06/20 04:27 INR Target Range - 11/06/20 04:27 INR 1.31 (0.8-1.3) H 11/06/20 04:27 D-Dimer 1.01 ug/ml (0.0-0.57) H* 11/13/20 04:04 Sample Site A line 11/23/20 05:00 ABG pH 7.360 (7.35-7.45) 11/23/20 05:00 ABG pCO2 66.0 mmHg (35.0-45.0) H* 11/23/20 05:00 ABG pO2 49.0 mmHg (80.0-100.0) L* 11/23/20 05:00 ABG HCO3 37.3 mmol/L (22-26) H* 11/23/20 05:00 ABG O2 Saturation 83.0 % (90-100) L* 11/23/20 05:00 ABG Base Excess 9.5 mmol/L (-2.0-2.0) H 11/23/20 05:00 Loyd Test Na 11/23/20 05:00 A-a Gradient 582.0 mmHg 11/23/20 05:00 FiO2 100 11/23/20 05:00 Blood Gas Comments Coby well sw 11/23/20 05:00 Sodium 133 mmol/L (136-145) L 11/23/20 04:19 Corrected Sodium 137 mmol/L (136-145) 11/23/20 04:19 Potassium 3.5 mmol/L (3.5-5.1) 11/23/20 04:19 Chloride 94 mmol/L (98-107) L 11/23/20 04:19 Carbon Dioxide 33.8 mmol/L (21-32) H 11/23/20 04:19 BUN 21 mg/dL (7-18) H 11/23/20 04:19 Creatinine 0.51 mg/dL (0.55-1.02) L 11/23/20 04:19 Est GFR (MDRD) Af Amer > 60 (>60) 11/23/20 04:19 Est GFR (MDRD) Non-Af > 60 (>60) 11/23/20 04:19 Glucose 275 mg/dL (65-99) H 11/23/20 04:19 POC Glucose (mg/dL) 263 mg/dL (65-99) H 11/23/20 00:14 Calcium 8.6 mg/dL (8.5-10.1) 11/23/20 04:19 Corrected Calcium TNP 11/23/20 04:19 Phosphorus 2.2 mg/dL (2.6-4.7) L 11/01/20 05:10 Magnesium 2.8 mg/dL (1.7-2.9) 11/18/20 05:02 Ferritin 531 ng/mL (8-252) H 10/12/20 05:33 Total Bilirubin 1.80 mg/dL (0.2-1.0) H 11/23/20 04:19 AST 115 Units/L (15-37) H 11/23/20 04:19 ALT 207 Units/L (12-78) H 11/23/20 04:19 Alkaline Phosphatase 155 Units/L (46-116) H 11/23/20 04:19 Creatine Kinase 180 Units/L (26-192) 10/07/20 11:49 CK-MB (CK-2) < 1.0 ng/mL (0-4.0) 10/07/20 11:49 CK/CKMB % Calc 0.6 % (<4) 10/07/20 11:49 Troponin I < 0.02 ng/mL (0-1.5) 10/07/20 11:49 C-Reactive Protein 14.40 mg/L (0-3.0) H 11/13/20 04:04 B-Natriuretic Peptide 32.1 pg/mL (0-79) 11/13/20 04:04 Total Protein 6.2 g/dL (6.4-8.2) L 11/23/20 04:19 Albumin 3.8 g/dL (3.4-5.0) 11/23/20 04:19 Globulin 2.4 g/dL (2.5-4.5) L 11/23/20 04:19 Albumin/Globulin Ratio 1.6 Ratio (1.1-2.1) 11/23/20 04:19 Prealbumin 23.7 mg/dL (18-35.7) 11/08/20 03:40 Triglycerides 168 mg/dL (0-150) H 11/01/20 05:10 Specimen Type Catherized urine 11/11/20 14:05 Urine Color Yellow (YELLOW) 11/11/20 14:05 Urine Appearance Hazy (CLEAR) 11/11/20 14:05 Urine pH 7.0 (5.0 - 8.0) 11/11/20 14:05 Ur Specific [place] 1.015 (1.000-1.030) 11/11/20 14:05 Urine Protein 2+ (NEGATIVE) 11/11/20 14:05 Urine Glucose (UA) Negative (NEGATIVE) 11/11/20 14:05 Urine Ketones Negative (NEGATIVE) 11/11/20 14:05 Urine Occult Blood 5+ (NEGATIVE) 11/11/20 14:05 Urine Nitrite Negative (NEGATIVE) 11/11/20 14:05 Urine Bilirubin Negative (NEGATIVE) 11/11/20 14:05 Urine Urobilinogen Normal (NORMAL) 11/11/20 14:05 Ur Leukocyte Esterase 1+ (NEGATIVE) 11/11/20 14:05 Urine RBC Tntc /HPF (0-3) A 11/11/20 14:05 Urine WBC 10-20 /HPF (0-5) A 11/11/20 14:05 Ur Squamous Epith Cells Negative /HPF (NEGATIVE) 11/11/20 14:05 Ur Renal Epithelial Cell Rare /HPF (NEGATIVE) 11/11/20 14:05 Urine Bacteria 1+ /HPF (NEGATIVE) 11/11/20 14:05 Urine Yeast Many /HPF (NEGATIVE) 11/11/20 14:05 Ur Culture Indicated? Yes/culture set up 11/11/20 14:05 Resp Viral Panel (PCR) See scanned report 11/12/20 14:54 Blood Type A POSITIVE 11/08/20 10:20 Antibody Screen Negative 11/08/20 10:20 Crossmatch See Detail 11/08/20 10:20 - Assessment and Plan 2: RT pneumothorax with chest tube in place . severe Covid lung disaease and ARDS. same plan . keep chest tube in place for now and low suction repeat chst X Ray in am . if the pneumothorax is worse then will need another chest tube .. - Problem Patient Problems: Patient Problems Pneumothorax (Acute) J93.9 COVID-19 (Acute) U07.1 Acute dehydration (Acute) E86.0 Insufficiency, respiratory, acute (Acute) R06.89 Bilateral interstitial pneumonia (Acute) J84.9 Other headache syndrome (Acute) G44.89 Pneumonia due to COVID-19 virus (Acute) U07.1, J12.82 Hypoxia (Acute) R09.02 ARDS (adult respiratory distress syndrome) (Acute) J80 Thrombocytopenia (Acute) D69.6 Anemia (Acute) D64.9
--- NOTE | 2020-11-23 09:24 | PCM.PROG ---
Progress Note - Progress Note for Day of Date of Exam: 11/23/20 - Subjective Subjective: MS. RICHARDS WAS ADMITTED FOR TREATMENT OF COVID PNEUMONIA AND HYPOXIA. HX OBESITY, OTHERWISE, NO SIGNIFICANT PMH. SHE REMAINS IN THE INTENSIVE CARE UNIT. SHE WAS INTUBATED ON 10/24 DUE TO RESPIRATORY FAILURE. TRACHEOSTOMY WAS INSERTED ON 11/07. CHEST TUBE WAS INSERTED ON 11/19 DUE TO LARGE PNEU MOTHORAX. HER VENT SETTINGS THIS MORNING ARE: A/C, RATE 28, TIDAL VOLUME 400, PEEP 14, FI02 100. SATURATIONS HAVE BEEN 81-91% THROUGHOUT THE NIGHT AND THIS MORNING. YESTERDAY AFTERNOON, WE DID ATTEMPT TO DECREASE HER FI02. IT WAS DECREASED TO 80%, HOWEVER, SATURATIONS WERE REMAINING IN THE LOWER 80s. IT WAS INCREASED TO 85% AND THEN 90%. SHE IS BACK UP TO 100% THIS MORNING DUE TO SATURATIONS REMAINING IN THE LOWER 80s. ON EXAMINATION, PATIENT DOES OPEN EYES WHEN SPOKEN TO, HOWEVER, THERE PUPIL RESPONSE IS MINIMAL AND VERY SLIGGISH. SHE IS TACHYCARDIC WITH HR 100-115. NG TUBE NOTED. BILATERAL LUNGS ARE NOTED WITH DIMINISHED LUNG SOUNDS THROUGHOUT. RIGHT SIDED CHEST TUBE NOTED TO SUCTION. ABDO MEN IS ROUND, SOFT, AND NON-TENDER WITH NORMAL BOWEL SOUNDS NOTED IN ALL QUADRANTS. MATHIS CATHETER TO BEDSIDE DRAINAGE. NO MOVEMENT OR REFLEXES TO UPPER OR LOWER EXTREMITIES ARE NOTED. HER VITALS THIS MORNING ARE: 99.7-111-31-85%-179/91. LABS WERE OBTAINED. ABNORMAL LAB VALUES INCLUDE THE FOLLOWING: WBC 20.5, RBC 2.78, HGB 9.1, HCT 26.9, D-DIMER 1.68, SODIUM 133, CHLORIDE 94, CARBON DIOXIDE 33.8, BUN 21, CREATININE 0.51, GLUCOSE 275, TOTAL BILI 1.80, AST 115, ALT 207, ALK PHOS 155, CRP 4.90, TOTAL PROTEIN 6.2. ABG REVEALED: PH 7.360, PC02 66, P02 49, HC03 37.3, 02 SAT 83, A-A GRADIENT 582, FI0 2 100. CHEST XRAY WAS OBTAINED AND REVEALED: Tracheostomy tube in situ. NG tube courses below the visualized field of view. Cardiac and mediastinal contours are within normal limits. Worsening of mild hazy opacity in the left lung. Right base hazy opacity appears similar. There is a new right pneumothorax with approximately 2.4 cm of pleural apical separation. No definite evidence of tension at this point. SEDATIONS HAS BEEN COMPLETELY OFF SINCE THURSDAY. PATIENT HAS HAD NO MEANINGFUL RESPONSE AND WAS NOT ABLE TO ADDEQUATELY MAINTAIN RESPIRATORY EFFORTS DESPITE SEDATIONS BEING OFF. WE WILL CONTINUE WITH HER NEBULIZER TREATMENTS, IV ANTIBIOTICS, IV FLUIDS, STEROIDS, BLOOD GLUCOSE CONTROL, ENTERAL FEEDINGS, ANTI-HYPERTENSIVES, AND CURRENT PLAN OF CARE. WILL MONITOR PNEUMOTHORAX AND CHEST TUBE. DUE TO INCREASING WBC, WE WILL RECULTURE BLOOD, URINE, AND OBTAIN STOOL STUDIES. OTHERWISE, WE WILL FOLLOW UP WITH AM LABS, CHEST XRAY, ABG, AND CONTINUE TO MONITOR. TIME SPENT ON CLIN ICAL ASSESSMENT, REVIEWING LABS AND IMAGING, DECISION MAKING, AND DOCUMENTATION GREATER THAN 75 MINUTES. - Past Medical Family Social History Past Med/Fam/Surg Hx: No changes since H&P Allergies: Allergies ibuprofen Adverse Reaction (Verified 10/06/20 20:57) abd pain - Review of Systems ROS: No change since H&P - Vital Signs and I&O's Vital Signs: Temperature 99.7 F Pulse Rate [Apical] 71 Pulse Rate [Left] 81 Pulse Rate 111 Respiratory Rate 31 Blood Pressure [Right Arm] 117/65 Blood Pressure [Left Arm] 147/90 Blood Pressure 179/91 O2 Sat by Pulse Oximetry 81 Intake and Output: Intake & Output 11/20/20 11/21/20 11/22/20 11/23/20 11:59 11:59 11:59 11:59 Intake Total 3650 / 3650 2393 / 2393 1667 / 1667 2165 / 2165 Output Total 3466 / 3466 2150 / 2150 3065 / 3065 2500 / 2500 Balance 184 / 184 243 / 243 -1398 / -1398 -335 / -335 - Physical Exam Oriented: Unable to test Eyes: Normal Ear: Normal Nose: Normal, Other (NG TUBE ) Throat: Normal Respiratory: Generalized, Diminished Cardiovascular: Normal : Normal, Other (MATHIS CATHETER ) Auscultation: Bowel Sounds: Normal Palpation: Normal Tenderness: Normal Skin: Other (RIGHT SIDED CHEST TUBE ) Musculoskeletal: Normal Psychiatric: Normal Speech Pattern: Artificially Ventilated - Laboratory and Diagnostics Result Diagrams: 11/23/20 04:19 11/23/20 04:19 Labs: 11/11/20 14:05 Urine,Catheterized Urine Culture - Final 11/12/20 14:54 Sputum - Endotracheal Wash Sputum Culture - Final 11/12/20 14:54 Sputum - Endotracheal Wash - Final 10/24/20 20:55 Sputum - Endotracheal Wash Sputum Culture - Final 10/24/20 20:55 Sputum - Endotracheal Wash - Final 10/07/20 11:51 Blood Blood Culture - Final 10/07/20 11:49 Blood Blood Culture - Final Laboratory WBC 20.5 X10^3/uL (3.6-10.0) H 11/23/20 04:19 RBC 2.78 X10^6/uL (3.5-5.4) L 11/23/20 04:19 Hgb 9.1 g/dL (12.0-16.0) L 11/23/20 04:19 Hct 26.9 % (36.0-47.0) L 11/23/20 04:19 MCV 96.7 fL (80.0-100.0) 11/23/20 04:19 MCH 32.9 pg (27.0-34.0) 11/23/20 04:19 MCHC 34.0 g/dL (33.0-35.0) 11/23/20 04:19 RDW 17.9 % (11.6-16.5) H 11/23/20 04:19 Plt Count 180 X10^3/uL (150.0-450.0) 11/23/20 04:19 Plt Count Comment Adequate (ADEQUATE) 11/23/20 04:19 MPV 9.5 fL (7.4-11.0) 11/23/20 04:19 Neut % (Auto) 87.7 % (42.0-75.0) H 11/23/20 04:19 Lymph % (Auto) 6.8 % (21.0-51.0) L 11/23/20 04:19 [place] % (Auto) 5.3 % (0.0-13.0) 11/23/20 04:19 Eos % (Auto) 0.0 % (0.9-2.9) L 11/23/20 04:19 Baso % (Auto) 0.2 % (0.2-1.0) 11/23/20 04:19 Neut # (Auto) 18.0 x10^3/uL (2.2-4.8) H 11/23/20 04:19 Lymph # (Auto) 1.4 X10^3/uL (1.3-2.9) 11/23/20 04:19 [place] # (Auto) 1.1 x10^3/uL (0.3-0.8) H 11/23/20 04:19 Eos # (Auto) 0.0 x10^3/uL (0.0-0.2) 11/23/20 04:19 Baso # (Auto) 0.0 X10^3/uL (0.0-0.1) 11/23/20 04:19 Absolute Nucleated RBC 0.2 /100WBC 11/23/20 04:19 Total Counted 100 11/23/20 04:19 Neutrophils % (Manual) 92 % (39-76) H 11/23/20 04:19 Band Neutrophils % 3 % (0-10) 11/22/20 04:18 Lymphocytes % (Manual) 6 % (13-43) L 11/23/20 04:19 Monocytes % (Manual) 2 % (4-9) L 11/22/20 04:18 Eosinophils % (Manual) 1 % (0-6) 11/07/20 04:34 Basophils % (Manual) Cancelled 11/01/20 05:10 Metamyelocytes % Cancelled 11/01/20 05:10 Myelocytes % 2 11/23/20 04:19 Promyelocytes % Cancelled 11/01/20 05:10 Nucleated RBCs Cancelled 11/01/20 05:10 Atypical Lymphocytes Cancelled 11/01/20 05:10 Blast Cells Cancelled 11/01/20 05:10 Smudge Cells Cancelled 11/01/20 05:10 Toxic Granulation Cancelled 11/01/20 05:10 [place]ohle Bodies Cancelled 11/01/20 05:10 Gutierrez Rods Cancelled 11/01/20 05:10 Plt Clumps, EDTA Cancelled 11/01/20 05:10 Giant Platelets Cancelled 11/01/20 05:10 Plt Morphology Comment Normal (NORMAL) 11/23/20 04:19 RBC Morphology Normal (NORMAL) 11/23/20 04:19 Dimorphic RBCs Cancelled 11/01/20 05:10 Polychromasia Cancelled 11/01/20 05:10 Hypochromasia Slight A 11/07/20 04:34 Poikilocytosis Cancelled 11/01/20 05:10 Basophilic Stippling Cancelled 11/01/20 05:10 Anisocytosis Slight A 11/22/20 04:18 Microcytosis Cancelled 11/01/20 05:10 Macrocytosis Slight A 11/07/20 04:34 Spherocytes Cancelled 11/01/20 05:10 Pappenheimer Bodies Cancelled 11/01/20 05:10 Sickle Cells Cancelled 11/01/20 05:10 Target Cells Cancelled 11/01/20 05:10 Tear Drop Cells Cancelled 11/01/20 05:10 Ovalocytes Cancelled 11/01/20 05:10 Stomatocytes Present 11/22/20 04:18 Helmet Cells Cancelled 11/01/20 05:10 [place] Bodies Cancelled 11/01/20 05:10 [place] Rings Cancelled 11/01/20 05:10 [place] Cells Cancelled 11/01/20 05:10 Crenated Cell Cancelled 11/01/20 05:10 Acanthocytes (Spur) Cancelled 11/01/20 05:10 Rouleaux Cancelled 11/01/20 05:10 Schistocytes Cancelled 11/01/20 05:10 PT 15.7 SECONDS (11.8-14.3) 11/06/20 04:27 INR Target Range - 11/06/20 04:27 INR 1.31 (0.8-1.3) H 11/06/20 04:27 D-Dimer 1.68 ug/ml (0.0-0.57) H* 11/23/20 04:19 Sample Site A line 11/23/20 05:00 ABG pH 7.360 (7.35-7.45) 11/23/20 05:00 ABG pCO2 66.0 mmHg (35.0-45.0) H* 11/23/20 05:00 ABG pO2 49.0 mmHg (80.0-100.0) L* 11/23/20 05:00 ABG HCO3 37.3 mmol/L (22-26) H* 11/23/20 05:00 ABG O2 Saturation 83.0 % (90-100) L* 11/23/20 05:00 ABG Base Excess 9.5 mmol/L (-2.0-2.0) H 11/23/20 05:00 Loyd Test Na 11/23/20 05:00 A-a Gradient 582.0 mmHg 11/23/20 05:00 FiO2 100 11/23/20 05:00 Blood Gas Comments Coby well sw 11/23/20 05:00 Sodium 133 mmol/L (136-145) L 11/23/20 04:19 Corrected Sodium 137 mmol/L (136-145) 11/23/20 04:19 Potassium 3.5 mmol/L (3.5-5.1) 11/23/20 04:19 Chloride 94 mmol/L (98-107) L 11/23/20 04:19 Carbon Dioxide 33.8 mmol/L (21-32) H 11/23/20 04:19 BUN 21 mg/dL (7-18) H 11/23/20 04:19 Creatinine 0.51 mg/dL (0.55-1.02) L 11/23/20 04:19 Est GFR (MDRD) Af Amer > 60 (>60) 11/23/20 04:19 Est GFR (MDRD) Non-Af > 60 (>60) 11/23/20 04:19 Glucose 275 mg/dL (65-99) H 11/23/20 04:19 POC Glucose (mg/dL) 335 mg/dL (65-99) H 11/23/20 09:14 Calcium 8.6 mg/dL (8.5-10.1) 11/23/20 04:19 Corrected Calcium TNP 11/23/20 04:19 Phosphorus 2.2 mg/dL (2.6-4.7) L 11/01/20 05:10 Magnesium 2.8 mg/dL (1.7-2.9) 11/18/20 05:02 Ferritin 531 ng/mL (8-252) H 10/12/20 05:33 Total Bilirubin 1.80 mg/dL (0.2-1.0) H 11/23/20 04:19 AST 115 Units/L (15-37) H 11/23/20 04:19 ALT 207 Units/L (12-78) H 11/23/20 04:19 Alkaline Phosphatase 155 Units/L (46-116) H 11/23/20 04:19 Creatine Kinase 180 Units/L (26-192) 10/07/20 11:49 CK-MB (CK-2) < 1.0 ng/mL (0-4.0) 10/07/20 11:49 CK/CKMB % Calc 0.6 % (<4) 10/07/20 11:49 Troponin I < 0.02 ng/mL (0-1.5) 10/07/20 11:49 C-Reactive Protein 4.90 mg/L (0-3.0) H 11/23/20 04:19 B-Natriuretic Peptide 73.3 pg/mL (0-79) 11/23/20 04:19 Total Protein 6.2 g/dL (6.4-8.2) L 11/23/20 04:19 Albumin 3.8 g/dL (3.4-5.0) 11/23/20 04:19 Globulin 2.4 g/dL (2.5-4.5) L 11/23/20 04:19 Albumin/Globulin Ratio 1.6 Ratio (1.1-2.1) 11/23/20 04:19 Prealbumin 23.7 mg/dL (18-35.7) 11/08/20 03:40 Triglycerides 168 mg/dL (0-150) H 11/01/20 05:10 Specimen Type Catherized urine 11/11/20 14:05 Urine Color Yellow (YELLOW) 11/11/20 14:05 Urine Appearance Hazy (CLEAR) 11/11/20 14:05 Urine pH 7.0 (5.0 - 8.0) 11/11/20 14:05 Ur Specific [place] 1.015 (1.000-1.030) 11/11/20 14:05 Urine Protein 2+ (NEGATIVE) 11/11/20 14:05 Urine Glucose (UA) Negative (NEGATIVE) 11/11/20 14:05 Urine Ketones Negative (NEGATIVE) 11/11/20 14:05 Urine Occult Blood 5+ (NEGATIVE) 11/11/20 14:05 Urine Nitrite Negative (NEGATIVE) 11/11/20 14:05 Urine Bilirubin Negative (NEGATIVE) 11/11/20 14:05 Urine Urobilinogen Normal (NORMAL) 11/11/20 14:05 Ur Leukocyte Esterase 1+ (NEGATIVE) 11/11/20 14:05 Urine RBC Tntc /HPF (0-3) A 11/11/20 14:05 Urine WBC 10-20 /HPF (0-5) A 11/11/20 14:05 Ur Squamous Epith Cells Negative /HPF (NEGATIVE) 11/11/20 14:05 Ur Renal Epithelial Cell Rare /HPF (NEGATIVE) 11/11/20 14:05 Urine Bacteria 1+ /HPF (NEGATIVE) 11/11/20 14:05 Urine Yeast Many /HPF (NEGATIVE) 11/11/20 14:05 Ur Culture Indicated? Yes/culture set up 11/11/20 14:05 Resp Viral Panel (PCR) See scanned report 11/12/20 14:54 Blood Type A POSITIVE 11/08/20 10:20 Antibody Screen Negative 11/08/20 10:20 Crossmatch See Detail 11/08/20 10:20 - Plan (1) Pneumonia due to COVID-19 virus Status: Acute Plan: MECHANICAL VENT, IV FLUIDS, POTASSIUM AND MAGNESIUM REPLACEMENT, IV ANTIBIOTICS, IV STEROIDS, IV DIFLUCAN, NEBULIZER TREATMENTS, RESPIRATORY THERAPY, VERSED FOR SEDATION, ENTERAL NUTRITION, GLUCOSE MONITORING WITH SLIDING SCALE COVERAGE. (2) ARDS (adult respiratory distress syndrome) Status: Acute (3) Pneumothorax Status: Acute Qualifiers: Pneumothorax type: unspecified pneumothorax Qualified Code(s): J93.9 - Pneumothorax, unspecified Plan: CHEST TUBE (4) Hypoxia Status: Acute Plan: Ween down FiO2 as tolerated by patient. (5) Thrombocytopenia Status: Acute Plan: Monitor platelets. (6) Anemia Status: Acute Qualifiers: Anemia type: iron deficiency Iron deficiency anemia type: chronic blood loss Qualified Code(s): D50.0 - Iron deficiency anemia secondary to blood loss (chronic) Plan: Monitor Hb.
[2020-11-23] MEDS: BUTT CREAM (COMPOUND) TOP SCH ×2 (09:28→21:00)
[2020-11-23] MEDS: LEVEMIR SC SCH ×2 (09:28→21:56)
[2020-11-23] MEDS: DIFLUCAN 200 MG IV PREMIX* 200 MG/100 ML BAG IV SCH (09:29)
[2020-11-23] MEDS: ELIQUIS NG SCH ×2 (09:29→21:00)
[2020-11-23] MEDS: MILK OF MAGNESIA NG SCH ×2 (09:29→21:00)
[2020-11-23] MEDS: DIAMOX PO SCH (09:29)
[2020-11-23] MEDS: PROTONIX INJ 40 MG VIAL IVP SCH (09:29)
[2020-11-23] MEDS: VITAMIN D3 125 mcg (5,000 UNITS) NG SCH (09:30)
[2020-11-23] MEDS: ALBUMIN HUMAN 25%- 100 ML 100 ML IV SCH (09:32)
[2020-11-23] MEDS: NYSTATIN POWDER TOP SCH ×2 (09:32→21:00)
[2020-11-23] MEDS: NYSTATIN CREAM TOP SCH ×2 (09:32→21:00)
[2020-11-23] MEDS: THIAMINE HCL INJ IVP SCH ×2 (09:32→21:00)
[2020-11-23] MEDS: VANCOMYCIN IV *PREMIX 1.25 G/250 ML BAG 1.25 G/250 ML PIGGYBACK IV SCH ×2 (09:32→22:39)
[2020-11-23] MEDS: D5W 1000 ML IV 1,000 ML IV SCH ×2 (11:58→22:55)
[2020-11-23] MEDS ORDERED: PHARMACY COMMENT IV NR (20:30)
[2020-11-23] MEDS: SNACK - Diabetic Appropriate PO SCH (21:52)
[2020-11-23 22:08] LABS: CREATININE 0.51 mg/dL (0.55-1.02)
[2020-11-23 22:09] LABS: VANCOMYCIN,TROUGH 20.4 ug/mL (15-20)
[2020-11-23] MEDS: VANCOMYCIN IV *PREMIX 1 G/200 ML BAG 1 G/200 ML PIGGYBACK IV SCH (22:55)
[2020-11-24] MEDS: HumuLIN R SUBCUT PRN ×3 (00:36→16:13)
[2020-11-24 04:56] LABS: ABG BASE EXCESS 9.5 mmol/L (-2.0-2.0)
[2020-11-24 05:13] LABS: BASOPHILS % (AUTO) 0.2 % (0.2-1.0); HEMATOCRIT 24.5 % (36.0-47.0); HEMOGLOBIN 8.4 g/dL (12.0-16.0); LYMPHOCYTES # (AUTO) 0.9 X10^3/uL (1.3-2.9); LYMPHOCYTES % (AUTO) 4.4 % (21.0-51.0); MEAN CORPUSCULAR HEMOGLOBIN 32.7 pg (27.0-34.0); MEAN CORPUSCULAR HGB CONC 34.2 g/dL (33.0-35.0); MEAN CORPUSCULAR VOLUME 95.8 fL (80.0-100.0); MONOCYTES % (AUTO) 4.9 % (0.0-13.0); NEUTROPHILS # (AUTO) 18.2 x10^3/uL (2.2-4.8); NEUTROPHILS % (AUTO) 90.5 % (42.0-75.0); PLATELET COUNT 139 X10^3/uL (150.0-450.0); RED BLOOD COUNT 2.56 X10^6/uL (3.5-5.4); RED CELL DISTRIBUTION WIDTH 18.1 % (11.6-16.5); WHITE BLOOD COUNT 20.1 X10^3/uL (3.6-10.0)
[2020-11-24 05:27] LABS: ALANINE AMINOTRANSFERASE 229 Units/L (12-78); ALBUMIN 3.7 g/dL (3.4-5.0); ALKALINE PHOSPHATASE 154 Units/L (46-116); ASPARTATE AMINO TRANSFERASE 124 Units/L (15-37); BLOOD UREA NITROGEN 24 mg/dL (7-18); CALCIUM 8.8 mg/dL (8.5-10.1); CARBON DIOXIDE 31.3 mmol/L (21-32); CHLORIDE 93 mmol/L (98-107); COR NA(FOR HYPERGLY) 135 mmol/L (136-145); CREATININE 0.49 mg/dL (0.55-1.02); SODIUM 131 mmol/L (136-145); eGFR NON BLACK RACES > 60 (>60)
[2020-11-24] MEDS: ACCUNEB 1.25 MG NEBULE NEB SCH ×3 (05:28→21:06)
[2020-11-24 05:36] LABS: BAND NEUTROPHILS % 1 % (0-10); METAMYELOCYTES % 4; MYELOCYTES % 1; PLATELET MORPHOLOGY COMMENT NORMAL (NORMAL)
[2020-11-24] MEDS: FORTAZ or TAZICEF VIAL INJ 1 G in NS 100 ML IV + SPIKE MINIBAG* 100 ML IV SCH ×3 (06:05→21:25)
[2020-11-24] MEDS: SOLU-Medrol 40 MG VIAL IVP SCH ×3 (06:05→21:25)
[2020-11-24] MEDS: K-RIDER 10 MEQ/NS 100 ML 10 MEQ/100 ML BAG IV PRN ×5 (06:35→20:30)
[2020-11-24] MEDS: NORMODYNE INJ 20 MG VIAL IV PRN (08:07)
--- NOTE | 2020-11-24 08:23 | RAD ---
HISTORYSOB SX: GBSTUDYCHEST, 1 [id number]/2021FINDINGSCardiac silhouette is normal in size. Bilateral basilar predominant interstitial and alveolar opacities appear overall unchanged since prior. There is a stable small right apical pneumothorax. Right thoracostomy tube remains satisfactory in position, terminating within the medial right lung base. Tracheostomy tube and NG tube also remain satisfactory in position.IMPRESSIONStable bibasilar airspace disease and unchanged small right apical pneumothorax.Electronically signed by: FABRICIO THOMPSON (Nov 24, 2020 08:21:34)
[2020-11-24] MEDS: ALBUMIN HUMAN 25%- 100 ML 100 ML IV SCH (08:47)
[2020-11-24] MEDS: BUTT CREAM (COMPOUND) TOP SCH ×2 (08:48→21:00)
[2020-11-24] MEDS: DIAMOX PO SCH (08:48)
[2020-11-24] MEDS: PULMICORT NEB TX 0.5 MG NEB SCH ×2 (09:00→21:06)
[2020-11-24] MEDS: BROVANA IN SCH ×2 (09:00→21:06)
[2020-11-24] MEDS: ELIQUIS NG SCH ×2 (09:07→21:00)
[2020-11-24] MEDS: LEVEMIR SC SCH ×2 (09:08→21:00)
[2020-11-24] MEDS: DIFLUCAN 200 MG IV PREMIX* 200 MG/100 ML BAG IV SCH (09:22)
[2020-11-24] MEDS: NYSTATIN CREAM TOP SCH ×2 (09:23→21:00)
[2020-11-24] MEDS: NYSTATIN POWDER TOP SCH ×2 (09:23→21:00)
[2020-11-24] MEDS: MILK OF MAGNESIA NG SCH ×2 (09:47→21:27)
[2020-11-24] MEDS: PROTONIX INJ 40 MG VIAL IVP SCH (09:47)
[2020-11-24] MEDS: VITAMIN D3 125 mcg (5,000 UNITS) NG SCH (09:47)
[2020-11-24] MEDS: THIAMINE HCL INJ IVP SCH ×2 (09:47→21:00)
[2020-11-24] MEDS: VANCOMYCIN IV *PREMIX 1 G/200 ML BAG 1 G/200 ML PIGGYBACK IV SCH ×2 (09:48→20:30)
[2020-11-24] MEDS: D5W 1000 ML IV 1,000 ML IV SCH (13:09)
[2020-11-24 13:56] LABS: CRYPTOSPORIDIUM PARVUM ANTIGEN NEGATIVE (NEGATIVE); GIARDIA LAMBLIA ANTIGEN NEGATIVE (NEGATIVE)
[2020-11-24] MEDS: LOPRESSOR INJ 5 MG AMP IVP PRN (21:20)
[2020-11-24] MEDS: SNACK - Diabetic Appropriate PO SCH (21:21)
[2020-11-24] MEDS: TYLENOL 325 MG TAB PO PRN (21:35)
[2020-11-25] MEDS: NORMODYNE INJ 20 MG VIAL IV PRN ×3 (00:45→16:04)
[2020-11-25] MEDS: HumuLIN R SUBCUT PRN ×3 (00:47→15:48)
[2020-11-25 04:46] LABS: BASOPHILS % (AUTO) 0.1 % (0.2-1.0); EOSINOPHILS % (AUTO) 0.1 % (0.9-2.9); HEMATOCRIT 22.6 % (36.0-47.0); HEMOGLOBIN 7.6 g/dL (12.0-16.0); LYMPHOCYTES # (AUTO) 0.8 X10^3/uL (1.3-2.9); LYMPHOCYTES % (AUTO) 3.7 % (21.0-51.0); MEAN CORPUSCULAR HEMOGLOBIN 32.4 pg (27.0-34.0); MEAN CORPUSCULAR HGB CONC 33.5 g/dL (33.0-35.0); MEAN CORPUSCULAR VOLUME 96.9 fL (80.0-100.0); MEAN PLATELET VOLUME 10.1 fL (7.4-11.0); MONOCYTES % (AUTO) 4.8 % (0.0-13.0); NEUTROPHILS % (AUTO) 91.3 % (42.0-75.0); PLATELET COUNT 113 X10^3/uL (150.0-450.0); RED BLOOD COUNT 2.33 X10^6/uL (3.5-5.4); RED CELL DISTRIBUTION WIDTH 18.7 % (11.6-16.5); WHITE BLOOD COUNT 20.8 X10^3/uL (3.6-10.0)
[2020-11-25 04:52] LABS: ABG BASE EXCESS 8.1 mmol/L (-2.0-2.0)
[2020-11-25 04:53] LABS: ABG HCO3 35.9 mmol/L (22-26)
[2020-11-25 05:02] LABS: ALANINE AMINOTRANSFERASE 253 Units/L (12-78); ALBUMIN 3.6 g/dL (3.4-5.0); ALKALINE PHOSPHATASE 144 Units/L (46-116); ASPARTATE AMINO TRANSFERASE 122 Units/L (15-37); BLOOD UREA NITROGEN 26 mg/dL (7-18); CALCIUM 8.6 mg/dL (8.5-10.1); CARBON DIOXIDE 32.5 mmol/L (21-32); CHLORIDE 94 mmol/L (98-107); COR NA(FOR HYPERGLY) 138 mmol/L (136-145); CREATININE 0.52 mg/dL (0.55-1.02); MAGNESIUM 2.6 mg/dL (1.7-2.9); SODIUM 133 mmol/L (136-145); TOTAL PROTEIN 5.9 g/dL (6.4-8.2); eGFR NON BLACK RACES > 60 (>60)
[2020-11-25 05:11] LABS: BAND NEUTROPHILS % 2 % (0-10); METAMYELOCYTES % 4; MYELOCYTES % 2
[2020-11-25 05:12] LABS: PLATELET MORPHOLOGY COMMENT NORMAL (NORMAL)
[2020-11-25] MEDS: D5W 1000 ML IV 1,000 ML IV SCH ×2 (05:21→13:18)
[2020-11-25] MEDS: FORTAZ or TAZICEF VIAL INJ 1 G in NS 100 ML IV + SPIKE MINIBAG* 100 ML IV SCH ×3 (05:45→21:23)
[2020-11-25] MEDS: SOLU-Medrol 40 MG VIAL IVP SCH ×3 (05:45→21:23)
[2020-11-25] MEDS: ACCUNEB 1.25 MG NEBULE NEB SCH ×3 (05:59→21:43)
--- NOTE | 2020-11-25 06:26 | RAD ---
HISTORYSOB SX: GBSTUDYCHEST, 1 [id number]/2021FINDINGSCardiac silhouette is normal in size. Bibasilar infiltrates appear stable given differences in technique. Small right apical pneumothorax is also unchanged. Support lines and tubes, including the right basilar thoracostomy tube remain stable/satisfactory in position.IMPRESSIONStable small right apical pneumothorax and persistent but unchanged bibasilar airspace disease.Electronically signed by: FABRICIO THOMPSON (Nov 25, 2020 06:23:57)
[2020-11-25] MEDS: PULMICORT NEB TX 0.5 MG NEB SCH ×2 (08:10→21:43)
[2020-11-25] MEDS: BROVANA IN SCH ×2 (08:10→21:43)
[2020-11-25] MEDS: ALBUMIN HUMAN 25%- 100 ML 100 ML IV SCH (08:28)
[2020-11-25] MEDS: DIFLUCAN 200 MG IV PREMIX* 200 MG/100 ML BAG IV SCH (08:29)
[2020-11-25] MEDS: DIAMOX PO SCH (08:29)
[2020-11-25] MEDS: LEVEMIR SC SCH ×2 (08:29→20:59)
[2020-11-25] MEDS: BUTT CREAM (COMPOUND) TOP SCH ×2 (08:29→20:54)
[2020-11-25] MEDS: MILK OF MAGNESIA NG SCH ×2 (08:31→20:56)
[2020-11-25] MEDS: NYSTATIN POWDER TOP SCH ×2 (08:31→20:57)
[2020-11-25] MEDS: NYSTATIN CREAM TOP SCH ×2 (08:31→20:57)
[2020-11-25] MEDS: THIAMINE HCL INJ IVP SCH ×2 (08:32→20:57)
[2020-11-25] MEDS: PROTONIX INJ 40 MG VIAL IVP SCH (08:32)
[2020-11-25] MEDS: VITAMIN D3 125 mcg (5,000 UNITS) NG SCH (08:32)
[2020-11-25] MEDS: VANCOMYCIN IV *PREMIX 1 G/200 ML BAG 1 G/200 ML PIGGYBACK IV SCH ×2 (08:33→21:49)
[2020-11-25] MEDS ORDERED: LASIX IVP ONE (11:26)
[2020-11-25] MEDS: ELIQUIS NG SCH ×2 (11:43→21:02)
[2020-11-25] MEDS: MORPHINE SULFATE INJ 2 MG INJ IVP PRN ×2 (14:10→21:25)
[2020-11-25 14:31] LABS: BASOPHILS % (AUTO) 0.1 % (0.2-1.0); HEMATOCRIT 23.5 % (36.0-47.0); HEMOGLOBIN 7.9 g/dL (12.0-16.0); LYMPHOCYTES # (AUTO) 0.9 X10^3/uL (1.3-2.9); MEAN CORPUSCULAR HEMOGLOBIN 32.5 pg (27.0-34.0); MEAN CORPUSCULAR HGB CONC 33.6 g/dL (33.0-35.0); MEAN CORPUSCULAR VOLUME 96.6 fL (80.0-100.0); MEAN PLATELET VOLUME 10.2 fL (7.4-11.0); MONOCYTES # (AUTO) 1.1 x10^3/uL (0.3-0.8); MONOCYTES % (AUTO) 4.6 % (0.0-13.0); NEUTROPHILS # (AUTO) 21.5 x10^3/uL (2.2-4.8); NEUTROPHILS % (AUTO) 91.3 % (42.0-75.0); PLATELET COUNT 115 X10^3/uL (150.0-450.0); RED BLOOD COUNT 2.43 X10^6/uL (3.5-5.4); RED CELL DISTRIBUTION WIDTH 18.5 % (11.6-16.5); WHITE BLOOD COUNT 23.5 X10^3/uL (3.6-10.0)
[2020-11-25 14:58] LABS: ANISOCYTOSIS SLIGHT; BAND NEUTROPHILS % 5 % (0-10); METAMYELOCYTES % 1; PLATELET MORPHOLOGY COMMENT NORMAL (NORMAL); STOMATOCYTES PRESENT
[2020-11-25] MEDS ORDERED: NS 1000 ML 0 ML ONE (20:05)
[2020-11-25] MEDS: SNACK - Diabetic Appropriate PO SCH (20:53)
[2020-11-25] MEDS ORDERED: NS 500 ML IV 500 ML IV ONE (21:10)
[2020-11-25 21:43] LABS: CREATININE 0.59 mg/dL (0.55-1.02)
[2020-11-25 21:46] LABS: VANCOMYCIN,TROUGH 27.2 ug/mL (15-20)
[2020-11-26] MEDS ORDERED: NS 1000 ML 1,000 ML IV ONE (00:34)
[2020-11-26] MEDS ORDERED: NS 1000 ML 1,000 ML ONE (00:37)
[2020-11-26] MEDS: D5W 1000 ML IV 1,000 ML IV SCH ×2 (04:10→17:05)
[2020-11-26] MEDS: MORPHINE SULFATE INJ 2 MG INJ IVP PRN ×3 (04:11→20:45)
[2020-11-26] MEDS: FORTAZ or TAZICEF VIAL INJ 1 G in NS 100 ML IV + SPIKE MINIBAG* 100 ML IV SCH ×3 (05:17→21:24)
[2020-11-26] MEDS: SOLU-Medrol 40 MG VIAL IVP SCH ×3 (05:17→21:24)
--- NOTE | 2020-11-26 05:30 | RAD ---
HISTORYPT PN VENTILATOR WITH TRACH PSH: GBSTUDYCHEST, 1 [id number]/2021FINDINGSThe trachea is midline. Tracheostomy tube in satisfactory position. NG tube below the hemidiaphragm. The cardiac silhouette is unremarkable. Bibasilar infiltrates unchanged. No pneumothorax. The bony thorax is unremarkable.IMPRESSIONBibasilar infiltrates unchanged from 11/25/2020.Electronically signed by: Josh Victor (Nov 26, 2020 05:28:14)
[2020-11-26] MEDS: ACCUNEB 1.25 MG NEBULE NEB SCH ×3 (06:02→20:50)
[2020-11-26 06:04] LABS: ABG BASE EXCESS 13.8 mmol/L (-2.0-2.0); ABG HCO3 41.5 mmol/L (22-26)
[2020-11-26 06:21] LABS: BASOPHILS % (AUTO) 0.1 % (0.2-1.0); HEMATOCRIT 20.4 % (36.0-47.0); LYMPHOCYTES # (AUTO) 0.8 X10^3/uL (1.3-2.9); LYMPHOCYTES % (AUTO) 4.3 % (21.0-51.0); MEAN CORPUSCULAR HEMOGLOBIN 33.2 pg (27.0-34.0); MEAN CORPUSCULAR HGB CONC 33.8 g/dL (33.0-35.0); MEAN CORPUSCULAR VOLUME 98.1 fL (80.0-100.0); MEAN PLATELET VOLUME 10.2 fL (7.4-11.0); MONOCYTES # (AUTO) 0.9 x10^3/uL (0.3-0.8); MONOCYTES % (AUTO) 4.6 % (0.0-13.0); NEUTROPHILS # (AUTO) 17.8 x10^3/uL (2.2-4.8); PLATELET COUNT 87 X10^3/uL (150.0-450.0); RED BLOOD COUNT 2.08 X10^6/uL (3.5-5.4); RED CELL DISTRIBUTION WIDTH 19.4 % (11.6-16.5); WHITE BLOOD COUNT 19.6 X10^3/uL (3.6-10.0)
[2020-11-26 06:23] LABS: ALANINE AMINOTRANSFERASE 213 Units/L (12-78); ALBUMIN 3.5 g/dL (3.4-5.0); ALKALINE PHOSPHATASE 128 Units/L (46-116); ASPARTATE AMINO TRANSFERASE 70 Units/L (15-37); BLOOD UREA NITROGEN 27 mg/dL (7-18); CALCIUM 8.9 mg/dL (8.5-10.1); CHLORIDE 101 mmol/L (98-107); COR NA(FOR HYPERGLY) 146 mmol/L (136-145); CREATININE 0.58 mg/dL (0.55-1.02); SODIUM 143 mmol/L (136-145); TOTAL PROTEIN 5.6 g/dL (6.4-8.2); eGFR NON BLACK RACES > 60 (>60)
[2020-11-26 06:44] LABS: HEMOGLOBIN 6.9 g/dL (12.0-16.0)
[2020-11-26 07:14] LABS: BAND NEUTROPHILS % 11 % (0-10); PLATELET MORPHOLOGY COMMENT NORMAL (NORMAL)
[2020-11-26] MEDS: BROVANA IN SCH ×2 (08:45→20:50)
[2020-11-26] MEDS: PULMICORT NEB TX 0.5 MG NEB SCH ×2 (08:45→20:50)
[2020-11-26] MEDS: DIFLUCAN 200 MG IV PREMIX* 200 MG/100 ML BAG IV SCH (09:22)
[2020-11-26] MEDS: MILK OF MAGNESIA NG SCH ×2 (09:24→20:06)
[2020-11-26] MEDS: ALBUMIN HUMAN 25%- 100 ML 100 ML IV SCH (09:24)
[2020-11-26] MEDS: NYSTATIN POWDER TOP SCH ×2 (09:28→20:43)
[2020-11-26] MEDS: LEVEMIR SC SCH ×2 (09:28→20:07)
[2020-11-26] MEDS: NYSTATIN CREAM TOP SCH ×2 (09:29→20:42)
[2020-11-26] MEDS: BUTT CREAM (COMPOUND) TOP SCH ×2 (09:30→20:06)
[2020-11-26] MEDS: VITAMIN D3 125 mcg (5,000 UNITS) NG SCH (09:30)
[2020-11-26] MEDS: THIAMINE HCL INJ IVP SCH ×2 (09:31→20:06)
[2020-11-26] MEDS ORDERED: HYDROGEN PEROXIDE 3% ONE (09:34)
[2020-11-26] MEDS: DIAMOX PO SCH (09:35)
[2020-11-26] MEDS: PEPCID 20 MG IV PREMIX* 20 MG/50 ML BAG IV SCH ×2 (09:35→20:07)
[2020-11-26] MEDS: POTASSIUM CHLORIDE LIQ 20 MEQ UDC PO PRN (09:35)
--- NOTE | 2020-11-26 10:14 | PCM.PROG ---
Progress Note - Progress Note for Day of Date of Exam: 11/26/20 - Subjective Subjective: MS. RICHARDS WAS ADMITTED FOR TREATMENT OF COVID PNEUMONIA AND HYPOXIA. HX OBESITY, OTHERWISE, NO SIGNIFICANT PMH. SHE REMAINS IN THE INTENSIVE CARE UNIT. SHE WAS INTUBATED ON 10/24 DUE TO RESPIRATORY FAILURE. TRACHEOSTOMY WAS INSERTED ON 11/07. CHEST TUBE WAS INSERTED ON 11/19 DUE TO LARGE PNEU MOTHORAX. HER VENT SETTINGS THIS MORNING ARE: A/C, RATE 28, TIDAL VOLUME 400, PEEP 14, FI02 100. SATURATIONS HAVE BEEN 91-99% THROUGHOUT THE NIGHT AND THIS MORNING, WITH THE OCCASIONAL DROP TO THE 80s. ON EXAMINATION, PATIENT DOES OPEN EYES WHEN SPOKEN TO, HOWEVER, HER PUPIL RESPONSE CONTINUES TO BE MINIMAL AND SLIGGISH. SHE IS TACHYCARDIC WITH HR 105. NG TUBE NOTED. BILATERAL LUNGS ARE NOTED WITH DIMINISHED LUNG SOUNDS THROUGHOUT. RIGHT SIDED CHEST TUBE NOTED TO SUCTION. ABDOMEN IS ROUND, SOFT, AND NORMAL BOWEL SOUNDS ARE NOTED IN ALL QUADRANTS. MATHIS CATHETER TO BEDSIDE DRAINAGE. NO MOVEMENT OR REFLEXES TO UPPER OR LOWER EXTREMITIES ARE NOTED. HER VITALS THIS MORNING ARE: 99.0-105-29-94%- 147/77. LABS WERE OBTAINED. ABNORMAL LAB VALUES INCLUDE THE FOLLOWING: WBC 19.6, RBC 2.08, HGB 6.9, PLT COUNT 87, POTASSIUM 3.4, CARBON DIOXIDE 37, BUN 27, GLUCOSE 226, TOTAL BILI 1.60, AST 70, ALT 213, ALK PHOS 128, TOTAL PROTEIN 5.6. ABG REVEALED: PH 7.400, PC02 67, P02 92, HC03 41.5, 02 SAT 97, BASE EXCESS 13.8, A-A GRADIENT 537, FI02 100. CHEST XRAY WAS OBTAINED AND REVEALED: Bibasilar infiltrates unchanged from 11/25/2020. SEDATIONS HAS BEEN COMPLETELY OFF SINCE THURSDAY. WE WILL CONTINUE WITH HER NEBULIZER TREATMENTS, IV ANTIBIOTICS, IV FLUIDS, STEROIDS, BLOOD GLUCOSE CONTROL, ENTERAL FEEDINGS, ANTI-HYPERTENSIVES, AND CURRENT PLAN OF CARE. WE WILL TRANSFUSE 2 UNITS OF PACKED RED BLOOD CELLS. WILL MANAGE CHEST TUBE. WE WILL HOLD THE ELIQUIS THAT WAS RESUMED OVER THE WEEKEND. OTHERWISE, WE WILL FOLLOW UP WITH AM LABS, CHEST XRAY, ABG, AND CONTINUE TO MONITOR. TIME SPENT ON CLINICAL ASSESSMENT, REVIEWING LABS AND IMAGING, DECISION MAKING, AND DOCUMENTATION GREATER THAN 75 MINUTES. - Past Medical Family Social History Past Med/Fam/Surg Hx: No changes since H&P Allergies: Allergies ibuprofen Adverse Reaction (Verified 10/06/20 20:57) abd pain - Review of Systems ROS: No change since H&P - Vital Signs and I&O's Vital Signs: Temperature 99 F Pulse Rate [Apical] 71 Pulse Rate [Left] 81 Pulse Rate 118 Respiratory Rate 30 Blood Pressure [Right Arm] 117/65 Blood Pressure [Left Arm] 147/90 Blood Pressure 175/84 O2 Sat by Pulse Oximetry 91 Intake and Output: Intake & Output 11/23/20 11/24/20 11/25/20 11/26/20 11:59 11:59 11:59 11:59 Intake Total 3490 / 3490 1954 / 1954 2604 / 2604 3663 / 3663 Output Total 3325 / 3325 1900 / 1900 6119 / 6119 3780 / 3780 Balance 165 / 165 54 / 54 -3515 / -3515 -117 / -117 - Physical Exam Oriented: Unable to test Eyes: Normal Ear: Normal Nose: Normal, Other (NG TUBE ) Throat: Normal Respiratory: Generalized, Diminished Cardiovascular: Normal : Normal, Other (MATHIS CATHETER ) Auscultation: Bowel Sounds: Normal Palpation: Normal Tenderness: Normal Skin: Other (RIGHT SIDED CHEST TUBE ) Musculoskeletal: Normal Psychiatric: Normal Speech Pattern: Artificially Ventilated - Laboratory and Diagnostics Result Diagrams: 11/26/20 05:37 11/26/20 05:37 Labs: 11/24/20 11:30 Stool Stool Culture - Final 11/24/20 11:30 Stool - Final 11/23/20 08:54 Blood Blood Culture - Preliminary 11/23/20 08:43 Blood Blood Culture - Preliminary 11/23/20 12:43 Urine,Clean Catch Urine Culture - Final 11/11/20 14:05 Urine,Catheterized Urine Culture - Final 11/12/20 14:54 Sputum - Endotracheal Wash Sputum Culture - Final 11/12/20 14:54 Sputum - Endotracheal Wash - Final 10/24/20 20:55 Sputum - Endotracheal Wash Sputum Culture - Final 10/24/20 20:55 Sputum - Endotracheal Wash - Final 10/07/20 11:51 Blood Blood Culture - Final 10/07/20 11:49 Blood Blood Culture - Final Laboratory WBC 19.6 X10^3/uL (3.6-10.0) H 11/26/20 05:37 RBC 2.08 X10^6/uL (3.5-5.4) L 11/26/20 05:37 Hgb 6.9 g/dL (12.0-16.0) L* 11/26/20 05:37 Hct 20.4 % (36.0-47.0) L 11/26/20 05:37 MCV 98.1 fL (80.0-100.0) 11/26/20 05:37 MCH 33.2 pg (27.0-34.0) 11/26/20 05:37 MCHC 33.8 g/dL (33.0-35.0) 11/26/20 05:37 RDW 19.4 % (11.6-16.5) H 11/26/20 05:37 Plt Count 87 X10^3/uL (150.0-450.0) L 11/26/20 05:37 Plt Count Comment Decreased (ADEQUATE) A 11/26/20 05:37 MPV 10.2 fL (7.4-11.0) 11/26/20 05:37 Neut % (Auto) 91.0 % (42.0-75.0) H 11/26/20 05:37 Lymph % (Auto) 4.3 % (21.0-51.0) L 11/26/20 05:37 [place] % (Auto) 4.6 % (0.0-13.0) 11/26/20 05:37 Eos % (Auto) 0.0 % (0.9-2.9) L 11/26/20 05:37 Baso % (Auto) 0.1 % (0.2-1.0) L 11/26/20 05:37 Neut # (Auto) 17.8 x10^3/uL (2.2-4.8) H 11/26/20 05:37 Lymph # (Auto) 0.8 X10^3/uL (1.3-2.9) L 11/26/20 05:37 [place] # (Auto) 0.9 x10^3/uL (0.3-0.8) H 11/26/20 05:37 Eos # (Auto) 0.0 x10^3/uL (0.0-0.2) 11/26/20 05:37 Baso # (Auto) 0.0 X10^3/uL (0.0-0.1) 11/26/20 05:37 Absolute Nucleated RBC 0.3 /100WBC 11/26/20 05:37 Total Counted 100 11/26/20 05:37 Neutrophils % (Manual) 77 % (39-76) H 11/26/20 05:37 Band Neutrophils % 11 % (0-10) H 11/26/20 05:37 Lymphocytes % (Manual) 7 % (13-43) L 11/26/20 05:37 Monocytes % (Manual) 5 % (4-9) 11/26/20 05:37 Eosinophils % (Manual) 1 % (0-6) 11/07/20 04:34 Basophils % (Manual) Cancelled 11/01/20 05:10 Metamyelocytes % 1 11/25/20 14:20 Myelocytes % 2 11/25/20 04:00 Promyelocytes % Cancelled 11/01/20 05:10 Nucleated RBCs 1 11/25/20 14:20 Atypical Lymphocytes Cancelled 11/01/20 05:10 Blast Cells Cancelled 11/01/20 05:10 Smudge Cells Cancelled 11/01/20 05:10 Toxic Granulation Cancelled 11/01/20 05:10 Dohle Bodies Cancelled 11/01/20 05:10 Gutierrez Rods Cancelled 11/01/20 05:10 Plt Clumps, EDTA Cancelled 11/01/20 05:10 Giant Platelets Cancelled 11/01/20 05:10 Plt Morphology Comment Normal (NORMAL) 11/26/20 05:37 RBC Morphology Normal (NORMAL) 11/26/20 05:37 Dimorphic RBCs Cancelled 11/01/20 05:10 Polychromasia Cancelled 11/01/20 05:10 Hypochromasia Slight A 11/07/20 04:34 Poikilocytosis Cancelled 11/01/20 05:10 Basophilic Stippling Cancelled 11/01/20 05:10 Anisocytosis Slight A 11/25/20 14:20 Microcytosis Cancelled 11/01/20 05:10 Macrocytosis Slight A 11/07/20 04:34 Spherocytes Cancelled 11/01/20 05:10 Pappenheimer Bodies Cancelled 11/01/20 05:10 Sickle Cells Cancelled 11/01/20 05:10 Target Cells Cancelled 11/01/20 05:10 Tear Drop Cells Cancelled 11/01/20 05:10 Ovalocytes Cancelled 11/01/20 05:10 Stomatocytes Present 11/25/20 14:20 Helmet Cells Cancelled 11/01/20 05:10 Florian-[place] Bodies Cancelled 11/01/20 05:10 [place] Rings Cancelled 11/01/20 05:10 [place] Cells Cancelled 11/01/20 05:10 Crenated Cell Cancelled 11/01/20 05:10 Acanthocytes (Spur) Cancelled 11/01/20 05:10 Rouleaux Cancelled 11/01/20 05:10 Schistocytes Cancelled 11/01/20 05:10 PT 15.7 SECONDS (11.8-14.3) 11/06/20 04:27 INR Target Range - 11/06/20 04:27 INR 1.31 (0.8-1.3) H 11/06/20 04:27 D-Dimer 1.68 ug/ml (0.0-0.57) H* 11/23/20 04:19 Sample Site Art line 11/26/20 06:00 ABG pH 7.400 (7.35-7.45) 11/26/20 06:00 ABG pCO2 67.0 mmHg (35.0-45.0) H* 11/26/20 06:00 ABG pO2 92.0 mmHg (80.0-100.0) 11/26/20 06:00 ABG HCO3 41.5 mmol/L (22-26) H* 11/26/20 06:00 ABG O2 Saturation 97.0 % (90-100) 11/26/20 06:00 ABG Base Excess 13.8 mmol/L (-2.0-2.0) H 11/26/20 06:00 Loyd Test N/a 11/26/20 06:00 A-a Gradient 537.0 mmHg 11/26/20 06:00 FiO2 100.0 11/26/20 06:00 Blood Gas Comments Coby well mtf/mts 11/26/20 06:00 Sodium 143 mmol/L (136-145) 11/26/20 05:37 Corrected Sodium 146 mmol/L (136-145) H 11/26/20 05:37 Potassium 3.4 mmol/L (3.5-5.1) L 11/26/20 05:37 Chloride 101 mmol/L (98-107) 11/26/20 05:37 Carbon Dioxide 37.0 mmol/L (21-32) H 11/26/20 05:37 BUN 27 mg/dL (7-18) H 11/26/20 05:37 Creatinine 0.58 mg/dL (0.55-1.02) 11/26/20 05:37 Est GFR (MDRD) Af Amer > 60 (>60) 11/26/20 05:37 Est GFR (MDRD) Non-Af > 60 (>60) 11/26/20 05:37 Glucose 226 mg/dL (65-99) H 11/26/20 05:37 POC Glucose (mg/dL) 297 mg/dL (65-99) H 11/26/20 09:47 Calcium 8.9 mg/dL (8.5-10.1) 11/26/20 05:37 Corrected Calcium TNP 11/26/20 05:37 Phosphorus 2.2 mg/dL (2.6-4.7) L 11/01/20 05:10 Magnesium 2.6 mg/dL (1.7-2.9) 11/25/20 04:00 Ferritin 531 ng/mL (8-252) H 10/12/20 05:33 Total Bilirubin 1.60 mg/dL (0.2-1.0) H 11/26/20 05:37 AST 70 Units/L (15-37) H 11/26/20 05:37 ALT 213 Units/L (12-78) H 11/26/20 05:37 Alkaline Phosphatase 128 Units/L (46-116) H 11/26/20 05:37 Creatine Kinase 180 Units/L (26-192) 10/07/20 11:49 CK-MB (CK-2) < 1.0 ng/mL (0-4.0) 10/07/20 11:49 CK/CKMB % Calc 0.6 % (<4) 10/07/20 11:49 Troponin I < 0.02 ng/mL (0-1.5) 10/07/20 11:49 C-Reactive Protein 4.90 mg/L (0-3.0) H 11/23/20 04:19 B-Natriuretic Peptide 73.3 pg/mL (0-79) 11/23/20 04:19 Total Protein 5.6 g/dL (6.4-8.2) L 11/26/20 05:37 Albumin 3.5 g/dL (3.4-5.0) 11/26/20 05:37 Globulin 2.1 g/dL (2.5-4.5) L 11/26/20 05:37 Albumin/Globulin Ratio 1.7 Ratio (1.1-2.1) 11/26/20 05:37 Prealbumin 23.7 mg/dL (18-35.7) 11/08/20 03:40 Triglycerides 168 mg/dL (0-150) H 11/01/20 05:10 Specimen Type Catherized urine 11/11/20 14:05 Urine Color Yellow (YELLOW) 11/11/20 14:05 Urine Appearance Hazy (CLEAR) 11/11/20 14:05 Urine pH 7.0 (5.0 - 8.0) 11/11/20 14:05 Ur Specific [place] 1.015 (1.000-1.030) 11/11/20 14:05 Urine Protein 2+ (NEGATIVE) 11/11/20 14:05 Urine Glucose (UA) Negative (NEGATIVE) 11/11/20 14:05 Urine Ketones Negative (NEGATIVE) 11/11/20 14:05 Urine Occult Blood 5+ (NEGATIVE) 11/11/20 14:05 Urine Nitrite Negative (NEGATIVE) 11/11/20 14:05 Urine Bilirubin Negative (NEGATIVE) 11/11/20 14:05 Urine Urobilinogen Normal (NORMAL) 11/11/20 14:05 Ur Leukocyte Esterase 1+ (NEGATIVE) 11/11/20 14:05 Urine RBC Tntc /HPF (0-3) A 11/11/20 14:05 Urine WBC 10-20 /HPF (0-5) A 11/11/20 14:05 Ur Squamous Epith Cells Negative /HPF (NEGATIVE) 11/11/20 14:05 Ur Renal Epithelial Cell Rare /HPF (NEGATIVE) 11/11/20 14:05 Urine Bacteria 1+ /HPF (NEGATIVE) 11/11/20 14:05 Urine Yeast Many /HPF (NEGATIVE) 11/11/20 14:05 Ur Culture Indicated? Yes/culture set up 11/11/20 14:05 Stool Description 45gms liquid brown 11/24/20 11:30 Stool Description 45gms liquid brown 11/24/20 11:30 Stl Occult Blood (IFOB) Positive (NEGATIVE) A 11/24/20 11:30 Stool for White Cells Positive (NEGATIVE) A 11/24/20 11:30 Stl C. diff Tox B Gene Negative (NEGATIVE) 11/24/20 11:30 Stl C. diff [id number] Presumptive negative (NEGATIVE) 11/24/20 11:30 Vancomycin Trough 27.2 ug/mL (15-20) H* 11/25/20 21:10 Random Vancomycin 22.0 ug/mL 11/26/20 05:37 Cryptosporid parvum Ag Negative (NEGATIVE) 11/24/20 11:30 Giardia lamblia Ag Negative (NEGATIVE) 11/24/20 11:30 Resp Viral Panel (PCR) See scanned report 11/12/20 14:54 Blood Type A POSITIVE 11/08/20 10:20 Antibody Screen Negative 11/08/20 10:20 Crossmatch See Detail 11/08/20 10:20 - Plan (1) Pneumonia due to COVID-19 virus Status: Acute Plan: MECHANICAL VENT, IV FLUIDS, POTASSIUM AND MAGNESIUM REPLACEMENT, IV ANTIBIOTICS, IV STEROIDS, IV DIFLUCAN, NEBULIZER TREATMENTS, RESPIRATORY THERAPY, VERSED FOR SEDATION, ENTERAL NUTRITION, GLUCOSE MONITORING WITH SLIDING SCALE COVERAGE. (2) ARDS (adult respiratory distress syndrome) Status: Acute (3) Pneumothorax Status: Acute Qualifiers: Pneumothorax type: unspecified pneumothorax Qualified Code(s): J93.9 - Pneumothorax, unspecified Plan: CHEST TUBE (4) Hypoxia Status: Acute Plan: Ween down FiO2 as tolerated by patient. (5) Thrombocytopenia Status: Acute Plan: Monitor platelets. (6) Anemia Status: Acute Qualifiers: Anemia type: iron deficiency Iron deficiency anemia type: chronic blood loss Qualified Code(s): D50.0 - Iron deficiency anemia secondary to blood loss (chronic) Plan: TRANSFUSE PRBC, Monitor Hb.
[2020-11-26] MEDS: HumuLIN R SUBCUT PRN ×3 (10:20→17:04)
[2020-11-26] MEDS: LOPRESSOR INJ 5 MG AMP IVP PRN (12:13)
[2020-11-26] MEDS: ELIQUIS NG SCH (13:48)
[2020-11-26] MEDS ORDERED: NS 500 ML IV 500 ML IV PRN (13:49)
--- NOTE | 2020-11-26 14:40 | DR.PROGNOT ---
Hospital Progress Notes - Progress Note for Day of: Progress Note Date: 11/26/20 - Chief Complaint Chief Complaint: repeated X Ray today showed no pneumothorax. otherwise no changes .. Pt opens her eyes with weak response to verbal commands. - Past Medical Family Social History Past Med/Fam/Surg Hx: No changes since H&P Allergies: Allergies ibuprofen Adverse Reaction (Verified 10/06/20 20:57) abd pain - Review Of Systems ROS: No change since H&P - Vital Signs Vital Signs: Temperature 99 F Pulse Rate [Apical] 71 Pulse Rate [Left] 81 Pulse Rate 116 Respiratory Rate 31 Blood Pressure [Right Arm] 117/65 Blood Pressure [Left Arm] 147/90 Blood Pressure 171/83 O2 Sat by Pulse Oximetry 92 - Physical Exam Oriented: Unable to test Eyes: Normal (opened her eyes when asked to .) Ear: Normal Nose: Normal, Other (NG TUBE ) Throat: Normal Respiratory: Generalized, Diminished Cardiovascular: Normal : Normal, Other (MATHIS CATHETER ) GI:Auscultation: Normal GI:Palpation: Normal GI: Tenderness: Normal Skin: Other (RIGHT SIDED CHEST TUBE ) Musculoskeletal: Normal Psychiatric: Normal Mood Description: Anxious Affect: Anxious Speech Pattern: Artificially Ventilated - Laboratory and Diagnostics Result Diagrams: 11/26/20 05:37 11/26/20 05:37 Labs: 11/24/20 11:30 Stool Stool Culture - Final 11/24/20 11:30 Stool - Final 11/23/20 08:54 Blood Blood Culture - Preliminary 11/23/20 08:43 Blood Blood Culture - Preliminary 11/23/20 12:43 Urine,Clean Catch Urine Culture - Final 11/11/20 14:05 Urine,Catheterized Urine Culture - Final 11/12/20 14:54 Sputum - Endotracheal Wash Sputum Culture - Final 11/12/20 14:54 Sputum - Endotracheal Wash - Final 10/24/20 20:55 Sputum - Endotracheal Wash Sputum Culture - Final 10/24/20 20:55 Sputum - Endotracheal Wash - Final 10/07/20 11:51 Blood Blood Culture - Final 10/07/20 11:49 Blood Blood Culture - Final Laboratory WBC 19.6 X10^3/uL (3.6-10.0) H 11/26/20 05:37 RBC 2.08 X10^6/uL (3.5-5.4) L 11/26/20 05:37 Hgb 6.9 g/dL (12.0-16.0) L* 11/26/20 05:37 Hct 20.4 % (36.0-47.0) L 11/26/20 05:37 MCV 98.1 fL (80.0-100.0) 11/26/20 05:37 MCH 33.2 pg (27.0-34.0) 11/26/20 05:37 MCHC 33.8 g/dL (33.0-35.0) 11/26/20 05:37 RDW 19.4 % (11.6-16.5) H 11/26/20 05:37 Plt Count 87 X10^3/uL (150.0-450.0) L 11/26/20 05:37 Plt Count Comment Decreased (ADEQUATE) A 11/26/20 05:37 MPV 10.2 fL (7.4-11.0) 11/26/20 05:37 Neut % (Auto) 91.0 % (42.0-75.0) H 11/26/20 05:37 Lymph % (Auto) 4.3 % (21.0-51.0) L 11/26/20 05:37 [place] % (Auto) 4.6 % (0.0-13.0) 11/26/20 05:37 Eos % (Auto) 0.0 % (0.9-2.9) L 11/26/20 05:37 Baso % (Auto) 0.1 % (0.2-1.0) L 11/26/20 05:37 Neut # (Auto) 17.8 x10^3/uL (2.2-4.8) H 11/26/20 05:37 Lymph # (Auto) 0.8 X10^3/uL (1.3-2.9) L 11/26/20 05:37 [place] # (Auto) 0.9 x10^3/uL (0.3-0.8) H 11/26/20 05:37 Eos # (Auto) 0.0 x10^3/uL (0.0-0.2) 11/26/20 05:37 Baso # (Auto) 0.0 X10^3/uL (0.0-0.1) 11/26/20 05:37 Absolute Nucleated RBC 0.3 /100WBC 11/26/20 05:37 Total Counted 100 11/26/20 05:37 Neutrophils % (Manual) 77 % (39-76) H 11/26/20 05:37 Band Neutrophils % 11 % (0-10) H 11/26/20 05:37 Lymphocytes % (Manual) 7 % (13-43) L 11/26/20 05:37 Monocytes % (Manual) 5 % (4-9) 11/26/20 05:37 Eosinophils % (Manual) 1 % (0-6) 11/07/20 04:34 Basophils % (Manual) Cancelled 11/01/20 05:10 Metamyelocytes % 1 11/25/20 14:20 Myelocytes % 2 11/25/20 04:00 Promyelocytes % Cancelled 11/01/20 05:10 Nucleated RBCs 1 11/25/20 14:20 Atypical Lymphocytes Cancelled 11/01/20 05:10 Blast Cells Cancelled 11/01/20 05:10 Smudge Cells Cancelled 11/01/20 05:10 Toxic Granulation Cancelled 11/01/20 05:10 Dohle Bodies Cancelled 11/01/20 05:10 Gutierrez Rods Cancelled 11/01/20 05:10 Plt Clumps, EDTA Cancelled 11/01/20 05:10 Giant Platelets Cancelled 11/01/20 05:10 Plt Morphology Comment Normal (NORMAL) 11/26/20 05:37 RBC Morphology Normal (NORMAL) 11/26/20 05:37 Dimorphic RBCs Cancelled 11/01/20 05:10 Polychromasia Cancelled 11/01/20 05:10 Hypochromasia Slight A 11/07/20 04:34 Poikilocytosis Cancelled 11/01/20 05:10 Basophilic Stippling Cancelled 11/01/20 05:10 Anisocytosis Slight A 11/25/20 14:20 Microcytosis Cancelled 11/01/20 05:10 Macrocytosis Slight A 11/07/20 04:34 Spherocytes Cancelled 11/01/20 05:10 Pappenheimer Bodies Cancelled 11/01/20 05:10 Sickle Cells Cancelled 11/01/20 05:10 Target Cells Cancelled 11/01/20 05:10 Tear Drop Cells Cancelled 11/01/20 05:10 Ovalocytes Cancelled 11/01/20 05:10 Stomatocytes Present 11/25/20 14:20 Helmet Cells Cancelled 11/01/20 05:10 [place] Bodies Cancelled 11/01/20 05:10 [place] Rings Cancelled 11/01/20 05:10 [place] Cells Cancelled 11/01/20 05:10 Crenated Cell Cancelled 11/01/20 05:10 Acanthocytes (Spur) Cancelled 11/01/20 05:10 Rouleaux Cancelled 11/01/20 05:10 Schistocytes Cancelled 11/01/20 05:10 PT 15.7 SECONDS (11.8-14.3) 11/06/20 04:27 INR Target Range - 11/06/20 04:27 INR 1.31 (0.8-1.3) H 11/06/20 04:27 D-Dimer 1.68 ug/ml (0.0-0.57) H* 11/23/20 04:19 Sample Site Art line 11/26/20 06:00 ABG pH 7.400 (7.35-7.45) 11/26/20 06:00 ABG pCO2 67.0 mmHg (35.0-45.0) H* 11/26/20 06:00 ABG pO2 92.0 mmHg (80.0-100.0) 11/26/20 06:00 ABG HCO3 41.5 mmol/L (22-26) H* 11/26/20 06:00 ABG O2 Saturation 97.0 % (90-100) 11/26/20 06:00 ABG Base Excess 13.8 mmol/L (-2.0-2.0) H 11/26/20 06:00 Loyd Test N/a 11/26/20 06:00 A-a Gradient 537.0 mmHg 11/26/20 06:00 FiO2 100.0 11/26/20 06:00 Blood Gas Comments Coby well mtf/mts 11/26/20 06:00 Sodium 143 mmol/L (136-145) 11/26/20 05:37 Corrected Sodium 146 mmol/L (136-145) H 11/26/20 05:37 Potassium 3.4 mmol/L (3.5-5.1) L 11/26/20 05:37 Chloride 101 mmol/L (98-107) 11/26/20 05:37 Carbon Dioxide 37.0 mmol/L (21-32) H 11/26/20 05:37 BUN 27 mg/dL (7-18) H 11/26/20 05:37 Creatinine 0.58 mg/dL (0.55-1.02) 11/26/20 05:37 Est GFR (MDRD) Af Amer > 60 (>60) 11/26/20 05:37 Est GFR (MDRD) Non-Af > 60 (>60) 11/26/20 05:37 Glucose 226 mg/dL (65-99) H 11/26/20 05:37 POC Glucose (mg/dL) 297 mg/dL (65-99) H 11/26/20 09:47 Calcium 8.9 mg/dL (8.5-10.1) 11/26/20 05:37 Corrected Calcium TNP 11/26/20 05:37 Phosphorus 2.2 mg/dL (2.6-4.7) L 11/01/20 05:10 Magnesium 2.6 mg/dL (1.7-2.9) 11/25/20 04:00 Ferritin 531 ng/mL (8-252) H 10/12/20 05:33 Total Bilirubin 1.60 mg/dL (0.2-1.0) H 11/26/20 05:37 AST 70 Units/L (15-37) H 11/26/20 05:37 ALT 213 Units/L (12-78) H 11/26/20 05:37 Alkaline Phosphatase 128 Units/L (46-116) H 11/26/20 05:37 Creatine Kinase 180 Units/L (26-192) 10/07/20 11:49 CK-MB (CK-2) < 1.0 ng/mL (0-4.0) 10/07/20 11:49 CK/CKMB % Calc 0.6 % (<4) 10/07/20 11:49 Troponin I < 0.02 ng/mL (0-1.5) 10/07/20 11:49 C-Reactive Protein 4.90 mg/L (0-3.0) H 11/23/20 04:19 B-Natriuretic Peptide 73.3 pg/mL (0-79) 11/23/20 04:19 Total Protein 5.6 g/dL (6.4-8.2) L 11/26/20 05:37 Albumin 3.5 g/dL (3.4-5.0) 11/26/20 05:37 Globulin 2.1 g/dL (2.5-4.5) L 11/26/20 05:37 Albumin/Globulin Ratio 1.7 Ratio (1.1-2.1) 11/26/20 05:37 Prealbumin 23.7 mg/dL (18-35.7) 11/08/20 03:40 Triglycerides 168 mg/dL (0-150) H 11/01/20 05:10 Specimen Type Catherized urine 11/11/20 14:05 Urine Color Yellow (YELLOW) 11/11/20 14:05 Urine Appearance Hazy (CLEAR) 11/11/20 14:05 Urine pH 7.0 (5.0 - 8.0) 11/11/20 14:05 Ur Specific [place] 1.015 (1.000-1.030) 11/11/20 14:05 Urine Protein 2+ (NEGATIVE) 11/11/20 14:05 Urine Glucose (UA) Negative (NEGATIVE) 11/11/20 14:05 Urine Ketones Negative (NEGATIVE) 11/11/20 14:05 Urine Occult Blood 5+ (NEGATIVE) 11/11/20 14:05 Urine Nitrite Negative (NEGATIVE) 11/11/20 14:05 Urine Bilirubin Negative (NEGATIVE) 11/11/20 14:05 Urine Urobilinogen Normal (NORMAL) 11/11/20 14:05 Ur Leukocyte Esterase 1+ (NEGATIVE) 11/11/20 14:05 Urine RBC Tntc /HPF (0-3) A 11/11/20 14:05 Urine WBC 10-20 /HPF (0-5) A 11/11/20 14:05 Ur Squamous Epith Cells Negative /HPF (NEGATIVE) 11/11/20 14:05 Ur Renal Epithelial Cell Rare /HPF (NEGATIVE) 11/11/20 14:05 Urine Bacteria 1+ /HPF (NEGATIVE) 11/11/20 14:05 Urine Yeast Many /HPF (NEGATIVE) 11/11/20 14:05 Ur Culture Indicated? Yes/culture set up 11/11/20 14:05 Stool Description 45gms liquid brown 11/24/20 11:30 Stool Description 45gms liquid brown 11/24/20 11:30 Stl Occult Blood (IFOB) Positive (NEGATIVE) A 11/24/20 11:30 Stool for White Cells Positive (NEGATIVE) A 11/24/20 11:30 Stl C. diff Tox B Gene Negative (NEGATIVE) 11/24/20 11:30 Stl C. diff [id number] Presumptive negative (NEGATIVE) 11/24/20 11:30 Vancomycin Trough 27.2 ug/mL (15-20) H* 11/25/20 21:10 Random Vancomycin 22.0 ug/mL 11/26/20 05:37 Cryptosporid parvum Ag Negative (NEGATIVE) 11/24/20 11:30 Giardia lamblia Ag Negative (NEGATIVE) 11/24/20 11:30 Resp Viral Panel (PCR) See scanned report 11/12/20 14:54 Blood Type A POSITIVE 11/26/20 10:00 Antibody Screen Negative 11/26/20 10:00 Crossmatch See Detail 11/26/20 10:00 - Assessment and Plan 2: resolved pneumothorax with chest tube in place . severe Covid lung disaease and ARDS. same plan . keep chest tube in place on low suction repeat chst X Ray in am . - Problem Patient Problems: Patient Problems Pneumothorax (Acute) J93.9 COVID-19 (Acute) U07.1 Acute dehydration (Acute) E86.0 Insufficiency, respiratory, acute (Acute) R06.89 Bilateral interstitial pneumonia (Acute) J84.9 Other headache syndrome (Acute) G44.89 Pneumonia due to COVID-19 virus (Acute) U07.1, J12.82 Hypoxia (Acute) R09.02 ARDS (adult respiratory distress syndrome) (Acute) J80 Thrombocytopenia (Acute) D69.6 Anemia (Acute) D64.9
[2020-11-26] MEDS: TYLENOL 325 MG TAB PO PRN (19:48)
[2020-11-26] MEDS: SNACK - Diabetic Appropriate PO SCH (19:48)
[2020-11-26] MEDS: PROTONIX INJ 40 MG VIAL IVP SCH (20:06)
[2020-11-26] MEDS: NORCO 5/325 MG TAB PO PRN (22:09)
[2020-11-27] MEDS: HumuLIN R SUBCUT PRN ×2 (00:08→09:23)
[2020-11-27] MEDS: LOPRESSOR INJ 5 MG AMP IVP PRN (02:30)
[2020-11-27] MEDS: TYLENOL 325 MG TAB PO PRN (02:30)
[2020-11-27] MEDS: MORPHINE SULFATE INJ 2 MG INJ IVP PRN ×3 (03:20→14:45)
[2020-11-27] MEDS: NORMODYNE INJ 20 MG VIAL IV PRN ×2 (03:50→08:44)
[2020-11-27 04:22] LABS: ABG BASE EXCESS 16.9 mmol/L (-2.0-2.0); ABG HCO3 44.5 mmol/L (22-26)
[2020-11-27] MEDS: D5W 1000 ML IV 1,000 ML IV SCH (04:40)
[2020-11-27] MEDS: ACCUNEB 1.25 MG NEBULE NEB SCH ×3 (05:00→16:33)
[2020-11-27 05:11] LABS: BASOPHILS % (AUTO) 0.2 % (0.2-1.0); HEMATOCRIT 30.9 % (36.0-47.0); HEMOGLOBIN 10.5 g/dL (12.0-16.0); LYMPHOCYTES # (AUTO) 0.9 X10^3/uL (1.3-2.9); LYMPHOCYTES % (AUTO) 4.2 % (21.0-51.0); MEAN CORPUSCULAR HEMOGLOBIN 31.7 pg (27.0-34.0); MEAN CORPUSCULAR HGB CONC 34.1 g/dL (33.0-35.0); MEAN CORPUSCULAR VOLUME 93.1 fL (80.0-100.0); MEAN PLATELET VOLUME 10.2 fL (7.4-11.0); MONOCYTES % (AUTO) 4.7 % (0.0-13.0); NEUTROPHILS % (AUTO) 90.9 % (42.0-75.0); PLATELET COUNT 83 X10^3/uL (150.0-450.0); RED BLOOD COUNT 3.31 X10^6/uL (3.5-5.4); RED CELL DISTRIBUTION WIDTH 18.6 % (11.6-16.5)
[2020-11-27 05:35] LABS: ALANINE AMINOTRANSFERASE 240 Units/L (12-78); ALBUMIN 3.9 g/dL (3.4-5.0); ALKALINE PHOSPHATASE 159 Units/L (46-116); ASPARTATE AMINO TRANSFERASE 102 Units/L (15-37); BLOOD UREA NITROGEN 17 mg/dL (7-18); CARBON DIOXIDE 38.6 mmol/L (21-32); CHLORIDE 104 mmol/L (98-107); COR NA(FOR HYPERGLY) 147 mmol/L (136-145); CREATININE 0.29 mg/dL (0.55-1.02); SODIUM 145 mmol/L (136-145); eGFR NON BLACK RACES > 60 (>60)
[2020-11-27 05:38] LABS: PLATELET MORPHOLOGY COMMENT NORMAL (NORMAL)
--- NOTE | 2020-11-27 05:57 | RAD ---
HISTORYCHANGE IN RESP STATUS, WHEEZING Relevant Clinical InformationSTUDYCHEST, 1 [id number]/18/2021FINDINGSThe trachea is midline. tracheostomy tube in satisfactory position. NG tube Below the hemidiaphragm. The cardiac silhouette is unremarkable. Bibasilar infiltrates unchanged. No pneumothorax. The bony thorax is unremarkable.IMPRESSIONStable portable chestElectronically signed by: Josh Victor (Nov 27, 2020 05:54:48)
[2020-11-27] MEDS: SOLU-Medrol 40 MG VIAL IVP SCH ×2 (06:09→15:46)
[2020-11-27] MEDS: FORTAZ or TAZICEF VIAL INJ 1 G in NS 100 ML IV + SPIKE MINIBAG* 100 ML IV SCH ×2 (06:09→15:46)
--- NOTE | 2020-11-27 06:47 | RAD ---
HISTORYSOBSTUDYCHEST, 1 [id number]/18/2021.TECHNIQUEAP view of the chestFINDINGSTracheostomy tube in situ. NG tube courses below the visualized field of view. Cardiac and mediastinal contours are within normal limits. No significant change in bilateral hazy and interstitial diffuse opacities. Small right apical pneumothorax with approximately 1.2 cm of pleural separation, previously 0.8 cm. No pleural effusion. Right thoracostomy tube in stable position.IMPRESSIONSmall right apical pneumothorax, slightly larger than prior. Stable pulmonary opacities.Electronically signed by: Saad Sommers (Nov 27, 2020 06:45:33)
[2020-11-27] MEDS: PULMICORT NEB TX 0.5 MG NEB SCH (08:30)
[2020-11-27] MEDS: BROVANA IN SCH (08:30)
[2020-11-27] MEDS: MILK OF MAGNESIA NG SCH (08:41)
[2020-11-27] MEDS: ALBUMIN HUMAN 25%- 100 ML 100 ML IV SCH (08:43)
[2020-11-27] MEDS: PEPCID 20 MG IV PREMIX* 20 MG/50 ML BAG IV SCH (08:43)
[2020-11-27] MEDS: PROTONIX INJ 40 MG VIAL IVP SCH (08:51)
[2020-11-27] MEDS: DIFLUCAN 200 MG IV PREMIX* 200 MG/100 ML BAG IV SCH (08:51)
[2020-11-27] MEDS: THIAMINE HCL INJ IVP SCH (08:52)
[2020-11-27] MEDS: VITAMIN D3 125 mcg (5,000 UNITS) NG SCH (08:53)
[2020-11-27] MEDS ORDERED: VANCOMYCIN IV *PREMIX 1 G/200 ML BAG 1 G/200 ML PIGGYBACK IV SCH (09:00)
[2020-11-27] MEDS: BUTT CREAM (COMPOUND) TOP SCH (09:22)
[2020-11-27] MEDS: LEVEMIR SC SCH (09:22)
[2020-11-27] MEDS: DIAMOX PO SCH (09:22)
[2020-11-27] MEDS: NYSTATIN CREAM TOP SCH (09:23)
[2020-11-27] MEDS: NYSTATIN POWDER TOP SCH (09:23)
[2020-11-27] MEDS ORDERED: DIAMOX PO ONE (09:28)
--- NOTE | 2020-11-27 10:51 | PCM.PROG ---
Progress Note Progress Note for Day of Date of Exam: 11/27/20 Subjective Subjective: Called back re: concerns for weakness 55 yo female with respiratory failure due to COVID-19 [facility] Trach 11/07 Off continuous sedation since 11/20 Over past 24 - 48 hours, interactive with staff - tracking, making eye contact Still having somewhat moderate amounts of secretions Past Medical Family Social History Past Med/Fam/Surg Hx: No changes since H&P Allergies: Allergies ibuprofen Adverse Reaction (Verified 10/06/20 20:57) abd pain Review of Systems ROS: No change since H&P Vital Signs and I&O's Vital Signs: Temperature 99 F Pulse Rate [Apical] 71 Pulse Rate [Left] 81 Pulse Rate 92 Respiratory Rate 28 Blood Pressure [Right Arm] 117/65 Blood Pressure [Left Arm] 147/90 Blood Pressure 171/79 O2 Sat by Pulse Oximetry 90 Intake and Output: Intake & Output 11/24/20 11/25/20 11/26/20 11/27/20 23:59 23:59 23:59 23:59 Intake Total 3184 / 3184 2530 / 2530 2768 / 2768 500 / 500 Output Total 3470 / 3470 6289 / 6289 2340 / 2340 430 / 430 Balance -286 / -286 -3759 / -3759 428 / 428 70 / 70 Physical Exam Oriented: Unable to test Eyes: Normal (opened her eyes when asked to .) Ear: Normal Nose: Normal and Other (NG TUBE ) Throat: Normal : Other (MATHIS CATHETER ) Skin: Other (RIGHT SIDED CHEST TUBE ) Musculoskeletal: Normal Psychiatric: Normal Speech Pattern: Artificially Ventilated Laboratory and Diagnostics Result Diagrams: 11/27/20 04:47 11/27/20 04:47 Labs: 11/23/20 08:43 Blood Blood Culture - Preliminary 11/24/20 11:30 Stool Stool Culture - Final 11/24/20 11:30 Stool - Final 11/23/20 08:54 Blood Blood Culture - Preliminary 11/23/20 12:43 Urine,Clean Catch Urine Culture - Final 11/11/20 14:05 Urine,Catheterized Urine Culture - Final 11/12/20 14:54 Sputum - Endotracheal Wash Sputum Culture - Final 11/12/20 14:54 Sputum - Endotracheal Wash - Final 10/24/20 20:55 Sputum - Endotracheal Wash Sputum Culture - Final 10/24/20 20:55 Sputum - Endotracheal Wash - Final 10/07/20 11:51 Blood Blood Culture - Final 10/07/20 11:49 Blood Blood Culture - Final Laboratory WBC 22.0 X10^3/uL (3.6-10.0) H 11/27/20 04:47 RBC 3.31 X10^6/uL (3.5-5.4) L 11/27/20 04:47 Hgb 10.5 g/dL (12.0-16.0) L D 11/27/20 04:47 Hct 30.9 % (36.0-47.0) L 11/27/20 04:47 MCV 93.1 fL (80.0-100.0) 11/27/20 04:47 MCH 31.7 pg (27.0-34.0) 11/27/20 04:47 MCHC 34.1 g/dL (33.0-35.0) 11/27/20 04:47 RDW 18.6 % (11.6-16.5) H 11/27/20 04:47 Plt Count 83 X10^3/uL (150.0-450.0) L 11/27/20 04:47 Plt Count Comment Decreased (ADEQUATE) A 11/27/20 04:47 MPV 10.2 fL (7.4-11.0) 11/27/20 04:47 Neut % (Auto) 90.9 % (42.0-75.0) H 11/27/20 04:47 Lymph % (Auto) 4.2 % (21.0-51.0) L 11/27/20 04:47 [place] % (Auto) 4.7 % (0.0-13.0) 11/27/20 04:47 Eos % (Auto) 0.0 % (0.9-2.9) L 11/27/20 04:47 Baso % (Auto) 0.2 % (0.2-1.0) 11/27/20 04:47 Neut # (Auto) 20.0 x10^3/uL (2.2-4.8) H 11/27/20 04:47 Lymph # (Auto) 0.9 X10^3/uL (1.3-2.9) L 11/27/20 04:47 [place] # (Auto) 1.0 x10^3/uL (0.3-0.8) H 11/27/20 04:47 Eos # (Auto) 0.0 x10^3/uL (0.0-0.2) 11/27/20 04:47 Baso # (Auto) 0.0 X10^3/uL (0.0-0.1) 11/27/20 04:47 Absolute Nucleated RBC 0.5 /100WBC 11/27/20 04:47 Total Counted 100 11/27/20 04:47 Neutrophils % (Manual) 91 % (39-76) H 11/27/20 04:47 Band Neutrophils % 11 % (0-10) H 11/26/20 05:37 Lymphocytes % (Manual) 4 % (13-43) L 11/27/20 04:47 Monocytes % (Manual) 5 % (4-9) 11/27/20 04:47 Eosinophils % (Manual) 1 % (0-6) 11/07/20 04:34 Basophils % (Manual) Cancelled 11/01/20 05:10 Metamyelocytes % 1 11/25/20 14:20 Myelocytes % 2 11/25/20 04:00 Promyelocytes % Cancelled 11/01/20 05:10 Nucleated RBCs 1 11/25/20 14:20 Atypical Lymphocytes Cancelled 11/01/20 05:10 Blast Cells Cancelled 11/01/20 05:10 Smudge Cells Cancelled 11/01/20 05:10 Toxic Granulation Cancelled 11/01/20 05:10 Dohle Bodies Cancelled 11/01/20 05:10 Gutierrez Rods Cancelled 11/01/20 05:10 Plt Clumps, EDTA Cancelled 11/01/20 05:10 Giant Platelets Cancelled 11/01/20 05:10 Plt Morphology Comment Normal (NORMAL) 11/27/20 04:47 RBC Morphology Normal (NORMAL) 11/27/20 04:47 Dimorphic RBCs Cancelled 11/01/20 05:10 Polychromasia Cancelled 11/01/20 05:10 Hypochromasia Slight A 11/07/20 04:34 Poikilocytosis Cancelled 11/01/20 05:10 Basophilic Stippling Cancelled 11/01/20 05:10 Anisocytosis Slight A 11/25/20 14:20 Microcytosis Cancelled 11/01/20 05:10 Macrocytosis Slight A 11/07/20 04:34 Spherocytes Cancelled 11/01/20 05:10 Pappenheimer Bodies Cancelled 11/01/20 05:10 Sickle Cells Cancelled 11/01/20 05:10 Target Cells Cancelled 11/01/20 05:10 Tear Drop Cells Cancelled 11/01/20 05:10 Ovalocytes Cancelled 11/01/20 05:10 Stomatocytes Present 11/25/20 14:20 Helmet Cells Cancelled 11/01/20 05:10 [place] Bodies Cancelled 11/01/20 05:10 [place] Rings Cancelled 11/01/20 05:10 Viry Cells Cancelled 11/01/20 05:10 Crenated Cell Cancelled 11/01/20 05:10 Acanthocytes (Spur) Cancelled 11/01/20 05:10 Rouleaux Cancelled 11/01/20 05:10 Schistocytes Cancelled 11/01/20 05:10 PT 15.7 SECONDS (11.8-14.3) 11/06/20 04:27 INR Target Range - 11/06/20 04:27 INR 1.31 (0.8-1.3) H 11/06/20 04:27 D-Dimer 1.68 ug/ml (0.0-0.57) H* 11/23/20 04:19 Sample Site Art line 11/27/20 04:20 ABG pH 7.430 (7.35-7.45) 11/27/20 04:20 ABG pCO2 67.0 mmHg (35.0-45.0) H* 11/27/20 04:20 ABG pO2 56.0 mmHg (80.0-100.0) L 11/27/20 04:20 ABG HCO3 44.5 mmol/L (22-26) H* 11/27/20 04:20 ABG O2 Saturation 90.0 % (90-100) 11/27/20 04:20 ABG Base Excess 16.9 mmol/L (-2.0-2.0) H 11/27/20 04:20 Loyd Test N/a 11/27/20 04:20 A-a Gradient 573.0 mmHg 11/27/20 04:20 FiO2 100.0 11/27/20 04:20 Blood Gas Comments Coby well ms 11/27/20 04:20 Sodium 145 mmol/L (136-145) 11/27/20 04:47 Corrected Sodium 147 mmol/L (136-145) H 11/27/20 04:47 Potassium 3.9 mmol/L (3.5-5.1) 11/27/20 04:47 Chloride 104 mmol/L (98-107) 11/27/20 04:47 Carbon Dioxide 38.6 mmol/L (21-32) H 11/27/20 04:47 BUN 17 mg/dL (7-18) 11/27/20 04:47 Creatinine 0.29 mg/dL (0.55-1.02) L 11/27/20 04:47 Est GFR (MDRD) Af Amer > 60 (>60) 11/27/20 04:47 Est GFR (MDRD) Non-Af > 60 (>60) 11/27/20 04:47 Glucose 166 mg/dL (65-99) H 11/27/20 04:47 POC Glucose (mg/dL) 192 mg/dL (65-99) H 11/27/20 08:58 Calcium 9.0 mg/dL (8.5-10.1) 11/27/20 04:47 Corrected Calcium TNP 11/27/20 04:47 Phosphorus 2.2 mg/dL (2.6-4.7) L 11/01/20 05:10 Magnesium 2.6 mg/dL (1.7-2.9) 11/25/20 04:00 Ferritin 531 ng/mL (8-252) H 10/12/20 05:33 Total Bilirubin 2.70 mg/dL (0.2-1.0) H 11/27/20 04:47 AST 102 Units/L (15-37) H 11/27/20 04:47 ALT 240 Units/L (12-78) H 11/27/20 04:47 Alkaline Phosphatase 159 Units/L (46-116) H 11/27/20 04:47 Creatine Kinase 180 Units/L (26-192) 10/07/20 11:49 CK-MB (CK-2) < 1.0 ng/mL (0-4.0) 10/07/20 11:49 CK/CKMB % Calc 0.6 % (<4) 10/07/20 11:49 Troponin I < 0.02 ng/mL (0-1.5) 10/07/20 11:49 C-Reactive Protein 4.90 mg/L (0-3.0) H 11/23/20 04:19 B-Natriuretic Peptide 73.3 pg/mL (0-79) 11/23/20 04:19 Total Protein 6.0 g/dL (6.4-8.2) L 11/27/20 04:47 Albumin 3.9 g/dL (3.4-5.0) 11/27/20 04:47 Globulin 2.1 g/dL (2.5-4.5) L 11/27/20 04:47 Albumin/Globulin Ratio 1.9 Ratio (1.1-2.1) 11/27/20 04:47 Prealbumin 23.7 mg/dL (18-35.7) 11/08/20 03:40 Triglycerides 168 mg/dL (0-150) H 11/01/20 05:10 Specimen Type Catherized urine 11/11/20 14:05 Urine Color Yellow (YELLOW) 11/11/20 14:05 Urine Appearance Hazy (CLEAR) 11/11/20 14:05 Urine pH 7.0 (5.0 - 8.0) 11/11/20 14:05 Ur Specific [place] 1.015 (1.000-1.030) 11/11/20 14:05 Urine Protein 2+ (NEGATIVE) 11/11/20 14:05 Urine Glucose (UA) Negative (NEGATIVE) 11/11/20 14:05 Urine Ketones Negative (NEGATIVE) 11/11/20 14:05 Urine Occult Blood 5+ (NEGATIVE) 11/11/20 14:05 Urine Nitrite Negative (NEGATIVE) 11/11/20 14:05 Urine Bilirubin Negative (NEGATIVE) 11/11/20 14:05 Urine Urobilinogen Normal (NORMAL) 11/11/20 14:05 Ur Leukocyte Esterase 1+ (NEGATIVE) 11/11/20 14:05 Urine RBC Tntc /HPF (0-3) A 11/11/20 14:05 Urine WBC 10-20 /HPF (0-5) A 11/11/20 14:05 Ur Squamous Epith Cells Negative /HPF (NEGATIVE) 11/11/20 14:05 Ur Renal Epithelial Cell Rare /HPF (NEGATIVE) 11/11/20 14:05 Urine Bacteria 1+ /HPF (NEGATIVE) 11/11/20 14:05 Urine Yeast Many /HPF (NEGATIVE) 11/11/20 14:05 Ur Culture Indicated? Yes/culture set up 11/11/20 14:05 Stool Description 20g black soft 11/27/20 01:27 Stl Occult Blood (IFOB) Positive (NEGATIVE) A 11/27/20 01:27 Stool for White Cells Positive (NEGATIVE) A 11/24/20 11:30 Stl C. diff Tox B Gene Negative (NEGATIVE) 11/24/20 11:30 Stl C. diff [id number] Presumptive negative (NEGATIVE) 11/24/20 11:30 Vancomycin Trough 27.2 ug/mL (15-20) H* 11/25/20 21:10 Random Vancomycin 6.8 ug/mL 11/27/20 04:47 Cryptosporid parvum Ag Negative (NEGATIVE) 11/24/20 11:30 Giardia lamblia Ag Negative (NEGATIVE) 11/24/20 11:30 Resp Viral Panel (PCR) See scanned report 11/12/20 14:54 Blood Type A POSITIVE 11/26/20 10:00 Antibody Screen Negative 11/26/20 10:00 Crossmatch See Detail 11/26/20 10:00 Plan (1) Pneumonia due to COVID-19 virus: Status: Acute (2) ARDS (adult respiratory distress syndrome): Status: Acute Plan: On PC rate 28, PIP 38.6, Peep 14, 100% --> Vt 380 - 400 (goal), sats low 90s, 7.43/67/56 Continue current ventilator settings and wean O2 to keep sats >90% Resend sputum sample Continue vanc and ceftazidime (3) Pneumothorax: Status: Acute Qualifiers: Pneumothorax type: unspecified pneumothorax Qualified Code(s): J93.9 - Pneumothorax, unspecified Plan: CHEST TUBE (4) Hypoxia: Status: Acute Plan: Wean down FiO2 as tolerated by patient. (5) Thrombocytopenia: Status: Acute Plan: Monitor platelets. (6) Anemia: Status: Acute Qualifiers: Anemia type: iron deficiency Iron deficiency anemia type: chronic blood loss Qualified Code(s): D50.0 - Iron deficiency anemia secondary to blood loss (chronic) Plan: Attributed to GI blood loss s/p 2 U prbc transfusion cont PPI tranfuse Hb <7 (7) Neuromuscular weakness: Status: Acute Plan: -suspect this is due to severe critical illness neuropathy and myopathy -continue aggressive PT/OT as able -check MRI brain w/wo contrast -limit sedation as above -will be a very prolonged course for improvement (8) Bacteremia: Status: Acute Plan: -per report positive blood cx from 11/23, further specifics pending -continue vanc and ceftazidime (9) Encephalopathy: Status: Acute Plan: -toxic, metabolic -due to critical illness and medications/sedation -continue to hold sedatives as able
--- NOTE | 2020-11-27 12:03 | PCM.PROG ---
Progress Note - Progress Note for Day of Date of Exam: 11/27/20 - Subjective Subjective: MS. RICHARDS WAS ADMITTED FOR TREATMENT OF COVID PNEUMONIA AND HYPOXIA. HX OBESITY, OTHERWISE, NO SIGNIFICANT PMH. SHE REMAINS IN THE INTENSIVE CARE UNIT. SHE WAS INTUBATED ON 10/24 DUE TO RESPIRATORY FAILURE. TRACHEOSTOMY WAS INSERTED ON 11/07. CHEST TUBE WAS INSERTED ON 11/19 DUE TO LARGE PNEU MOTHORAX. HER VENT SETTINGS THIS MORNING ARE: A/C, RATE 28, TIDAL VOLUME 400, PEEP 112, FI02 100. SATURATIONS HAVE BEEN 86-95% THROUGHOUT THE NIGHT AND THIS MORNING. SHE HAS BEEN OFF OF CONTINUOUS SEDATION SINCE 11/20. SHE RECEIVED TWO UNITS OF PACKED RED BLOOD CELLS YESTERDAY. ON EXAMINATION, PATIENT DOES OPEN EYES WHEN SPOKEN TO. SHE STICKS OUT TONGUE ON COMMAND. PATIENT IS UNABLE TO LIFT UPPER OR LOWER EXTREMITIES TO COMMAND. HEART IS REGULAR IN RATE AND RHYTHM. NG TUBE NOTED. BILATERAL LUNGS ARE NOTED WITH DIMINISHED LUNG SOUNDS THROUGHOUT. RIGHT SIDED CHEST TUBE NOTED TO SUCTION. ABDOMEN IS ROUND, SOFT, AND NORMAL BOWEL SOUNDS ARE NOTED IN ALL QUADRANTS. MATHIS CATHETER TO BEDSIDE DRAINAGE. NO MOVEMENT OR REFLEXES TO UPPER OR LOWER EXTREMITIES ARE NOTED. HER VITALS THIS MORNING ARE: 99.0-100-30-92%-171/79. LABS WERE OBTAINED. ABNORMAL LAB VALUES INCLUDE THE FOLLOWING: WBC 22.0, RBC 3.31, HGB 10.5, HCT 30.9, PLT COUNT 83, CARBON DIOXIDE 38.6, CREATININE 0.29, GLUCOSE 166, TOTAL BILI 2.70, AST 102, ALT 240, ALK PHOS 159. ABG REVEALED: PH 7.430, PC02 67, P02 56, HC03 44.5, 02 SAT 90 , BASE EXCESS 16.9, A-A GRADIENT 573, FI02 100. CHEST XRAY WAS OBTAINED AND REVEALED: Tracheostomy tube in situ. NG tube courses below the visualized field of view. Cardiac and mediastinal contours are within normal limits. No significant change in bilateral hazy and interstitial diffuse opacities. Small right apical pneumothorax with approximately 1.2 cm of pleural separation, previously 0.8 cm. No pleural effusion. Right thoracostomy tube in stable position. WE WILL CONTINUE WITH HER NEBULIZER TREATMENTS, IV ANTIBIOTICS, IV FLUIDS, STEROIDS, BLOOD GLUCOSE CONTROL, ENTERAL FEEDINGS, ANTI-HYPERTENSIVES, AND CURRENT PLAN OF CARE. WE WILL CONSULT WITH PULMONOLOGY AND POSSIBLY A TELEMEDICINE-NEUROLOGY CONSULT TODAY. OTHERWISE, WE WILL FOLLOW UP WITH AM LABS, CHEST XRAY, ABG, AND CONTINUE TO MONITOR. TIME SPENT ON CLINICAL ASSESSMENT, REVIEWING LABS AND IMAGING, DECISION MAKING, AND DOCUMENTATION GREATER THAN 75 MINUTES. - Past Medical Family Social History Past Med/Fam/Surg Hx: No changes since H&P Allergies: Allergies ibuprofen Adverse Reaction (Verified 10/06/20 20:57) abd pain - Review of Systems ROS: No change since H&P - Vital Signs and I&O's Vital Signs: Temperature 99 F Pulse Rate [Apical] 71 Pulse Rate [Left] 81 Pulse Rate 90 Respiratory Rate 29 Blood Pressure [Right Arm] 117/65 Blood Pressure [Left Arm] 147/90 Blood Pressure 155/74 O2 Sat by Pulse Oximetry 93 Intake and Output: Intake & Output 11/25/20 11/26/20 11/27/20 11/28/20 11:59 11:59 11:59 11:59 Intake Total 2604 / 2604 3663 / 3663 1800 / 1800 Output Total 6119 / 6119 3780 / 3780 1830 / 1830 Balance -3515 / -3515 -117 / -117 -30 / -30 - Physical Exam Oriented: Unable to test Eyes: Normal (opened her eyes when asked to .) Ear: Normal Nose: Other (NG TUBE), Normal Throat: Normal Respiratory: Generalized, Diminished Cardiovascular: Normal : Other (MATHIS CATHETER) Auscultation: Bowel Sounds: Normal Palpation: Normal Tenderness: Normal Skin: Other (RIGHT SIDED CHEST TUBE) Musculoskeletal: Normal Psychiatric: Normal Speech Pattern: Artificially Ventilated - Laboratory and Diagnostics Result Diagrams: 11/27/20 04:47 11/27/20 04:47 Labs: 11/23/20 08:43 Blood Blood Culture - Preliminary 11/24/20 11:30 Stool Stool Culture - Final 11/24/20 11:30 Stool - Final 11/23/20 08:54 Blood Blood Culture - Preliminary 11/23/20 12:43 Urine,Clean Catch Urine Culture - Final 11/11/20 14:05 Urine,Catheterized Urine Culture - Final 11/12/20 14:54 Sputum - Endotracheal Wash Sputum Culture - Final 11/12/20 14:54 Sputum - Endotracheal Wash - Final 10/24/20 20:55 Sputum - Endotracheal Wash Sputum Culture - Final 10/24/20 20:55 Sputum - Endotracheal Wash - Final 10/07/20 11:51 Blood Blood Culture - Final 10/07/20 11:49 Blood Blood Culture - Final Laboratory WBC 22.0 X10^3/uL (3.6-10.0) H 11/27/20 04:47 RBC 3.31 X10^6/uL (3.5-5.4) L 11/27/20 04:47 Hgb 10.5 g/dL (12.0-16.0) L D 11/27/20 04:47 Hct 30.9 % (36.0-47.0) L 11/27/20 04:47 MCV 93.1 fL (80.0-100.0) 11/27/20 04:47 MCH 31.7 pg (27.0-34.0) 11/27/20 04:47 MCHC 34.1 g/dL (33.0-35.0) 11/27/20 04:47 RDW 18.6 % (11.6-16.5) H 11/27/20 04:47 Plt Count 83 X10^3/uL (150.0-450.0) L 11/27/20 04:47 Plt Count Comment Decreased (ADEQUATE) A 11/27/20 04:47 MPV 10.2 fL (7.4-11.0) 11/27/20 04:47 Neut % (Auto) 90.9 % (42.0-75.0) H 11/27/20 04:47 Lymph % (Auto) 4.2 % (21.0-51.0) L 11/27/20 04:47 [place] % (Auto) 4.7 % (0.0-13.0) 11/27/20 04:47 Eos % (Auto) 0.0 % (0.9-2.9) L 11/27/20 04:47 Baso % (Auto) 0.2 % (0.2-1.0) 11/27/20 04:47 Neut # (Auto) 20.0 x10^3/uL (2.2-4.8) H 11/27/20 04:47 Lymph # (Auto) 0.9 X10^3/uL (1.3-2.9) L 11/27/20 04:47 [place] # (Auto) 1.0 x10^3/uL (0.3-0.8) H 11/27/20 04:47 Eos # (Auto) 0.0 x10^3/uL (0.0-0.2) 11/27/20 04:47 Baso # (Auto) 0.0 X10^3/uL (0.0-0.1) 11/27/20 04:47 Absolute Nucleated RBC 0.5 /100WBC 11/27/20 04:47 Total Counted 100 11/27/20 04:47 Neutrophils % (Manual) 91 % (39-76) H 11/27/20 04:47 Band Neutrophils % 11 % (0-10) H 11/26/20 05:37 Lymphocytes % (Manual) 4 % (13-43) L 11/27/20 04:47 Monocytes % (Manual) 5 % (4-9) 11/27/20 04:47 Eosinophils % (Manual) 1 % (0-6) 11/07/20 04:34 Basophils % (Manual) Cancelled 11/01/20 05:10 Metamyelocytes % 1 11/25/20 14:20 Myelocytes % 2 11/25/20 04:00 Promyelocytes % Cancelled 11/01/20 05:10 Nucleated RBCs 1 11/25/20 14:20 Atypical Lymphocytes Cancelled 11/01/20 05:10 Blast Cells Cancelled 11/01/20 05:10 Smudge Cells Cancelled 11/01/20 05:10 Toxic Granulation Cancelled 11/01/20 05:10 Dohle Bodies Cancelled 11/01/20 05:10 Gutierrez Rods Cancelled 11/01/20 05:10 Plt Clumps, EDTA Cancelled 11/01/20 05:10 Giant Platelets Cancelled 11/01/20 05:10 Plt Morphology Comment Normal (NORMAL) 11/27/20 04:47 RBC Morphology Normal (NORMAL) 11/27/20 04:47 Dimorphic RBCs Cancelled 11/01/20 05:10 Polychromasia Cancelled 11/01/20 05:10 Hypochromasia Slight A 11/07/20 04:34 Poikilocytosis Cancelled 11/01/20 05:10 Basophilic Stippling Cancelled 11/01/20 05:10 Anisocytosis Slight A 11/25/20 14:20 Microcytosis Cancelled 11/01/20 05:10 Macrocytosis Slight A 11/07/20 04:34 Spherocytes Cancelled 11/01/20 05:10 Pappenheimer Bodies Cancelled 11/01/20 05:10 Sickle Cells Cancelled 11/01/20 05:10 Target Cells Cancelled 11/01/20 05:10 Tear Drop Cells Cancelled 11/01/20 05:10 Ovalocytes Cancelled 11/01/20 05:10 Stomatocytes Present 11/25/20 14:20 Helmet Cells Cancelled 11/01/20 05:10 [place] Bodies Cancelled 11/01/20 05:10 [place] Rings Cancelled 11/01/20 05:10 Viry Cells Cancelled 11/01/20 05:10 Crenated Cell Cancelled 11/01/20 05:10 Acanthocytes (Spur) Cancelled 11/01/20 05:10 Rouleaux Cancelled 11/01/20 05:10 Schistocytes Cancelled 11/01/20 05:10 PT 15.7 SECONDS (11.8-14.3) 11/06/20 04:27 INR Target Range - 11/06/20 04:27 INR 1.31 (0.8-1.3) H 11/06/20 04:27 D-Dimer 1.68 ug/ml (0.0-0.57) H* 11/23/20 04:19 Sample Site Art line 11/27/20 04:20 ABG pH 7.430 (7.35-7.45) 11/27/20 04:20 ABG pCO2 67.0 mmHg (35.0-45.0) H* 11/27/20 04:20 ABG pO2 56.0 mmHg (80.0-100.0) L 11/27/20 04:20 ABG HCO3 44.5 mmol/L (22-26) H* 11/27/20 04:20 ABG O2 Saturation 90.0 % (90-100) 11/27/20 04:20 ABG Base Excess 16.9 mmol/L (-2.0-2.0) H 11/27/20 04:20 Loyd Test N/a 11/27/20 04:20 A-a Gradient 573.0 mmHg 11/27/20 04:20 FiO2 100.0 11/27/20 04:20 Blood Gas Comments Coby well ms 11/27/20 04:20 Sodium 145 mmol/L (136-145) 11/27/20 04:47 Corrected Sodium 147 mmol/L (136-145) H 11/27/20 04:47 Potassium 3.9 mmol/L (3.5-5.1) 11/27/20 04:47 Chloride 104 mmol/L (98-107) 11/27/20 04:47 Carbon Dioxide 38.6 mmol/L (21-32) H 11/27/20 04:47 BUN 17 mg/dL (7-18) 11/27/20 04:47 Creatinine 0.29 mg/dL (0.55-1.02) L 11/27/20 04:47 Est GFR (MDRD) Af Amer > 60 (>60) 11/27/20 04:47 Est GFR (MDRD) Non-Af > 60 (>60) 11/27/20 04:47 Glucose 166 mg/dL (65-99) H 11/27/20 04:47 POC Glucose (mg/dL) 192 mg/dL (65-99) H 11/27/20 08:58 Calcium 9.0 mg/dL (8.5-10.1) 11/27/20 04:47 Corrected Calcium TNP 11/27/20 04:47 Phosphorus 2.2 mg/dL (2.6-4.7) L 11/01/20 05:10 Magnesium 2.6 mg/dL (1.7-2.9) 11/25/20 04:00 Ferritin 531 ng/mL (8-252) H 10/12/20 05:33 Total Bilirubin 2.70 mg/dL (0.2-1.0) H 11/27/20 04:47 AST 102 Units/L (15-37) H 11/27/20 04:47 ALT 240 Units/L (12-78) H 11/27/20 04:47 Alkaline Phosphatase 159 Units/L (46-116) H 11/27/20 04:47 Creatine Kinase 180 Units/L (26-192) 10/07/20 11:49 CK-MB (CK-2) < 1.0 ng/mL (0-4.0) 10/07/20 11:49 CK/CKMB % Calc 0.6 % (<4) 10/07/20 11:49 Troponin I < 0.02 ng/mL (0-1.5) 10/07/20 11:49 C-Reactive Protein 4.90 mg/L (0-3.0) H 11/23/20 04:19 B-Natriuretic Peptide 73.3 pg/mL (0-79) 11/23/20 04:19 Total Protein 6.0 g/dL (6.4-8.2) L 11/27/20 04:47 Albumin 3.9 g/dL (3.4-5.0) 11/27/20 04:47 Globulin 2.1 g/dL (2.5-4.5) L 11/27/20 04:47 Albumin/Globulin Ratio 1.9 Ratio (1.1-2.1) 11/27/20 04:47 Prealbumin 23.7 mg/dL (18-35.7) 11/08/20 03:40 Triglycerides 168 mg/dL (0-150) H 11/01/20 05:10 Specimen Type Catherized urine 11/11/20 14:05 Urine Color Yellow (YELLOW) 11/11/20 14:05 Urine Appearance Hazy (CLEAR) 11/11/20 14:05 Urine pH 7.0 (5.0 - 8.0) 11/11/20 14:05 Ur Specific [place] 1.015 (1.000-1.030) 11/11/20 14:05 Urine Protein 2+ (NEGATIVE) 11/11/20 14:05 Urine Glucose (UA) Negative (NEGATIVE) 11/11/20 14:05 Urine Ketones Negative (NEGATIVE) 11/11/20 14:05 Urine Occult Blood 5+ (NEGATIVE) 11/11/20 14:05 Urine Nitrite Negative (NEGATIVE) 11/11/20 14:05 Urine Bilirubin Negative (NEGATIVE) 11/11/20 14:05 Urine Urobilinogen Normal (NORMAL) 11/11/20 14:05 Ur Leukocyte Esterase 1+ (NEGATIVE) 11/11/20 14:05 Urine RBC Tntc /HPF (0-3) A 11/11/20 14:05 Urine WBC 10-20 /HPF (0-5) A 11/11/20 14:05 Ur Squamous Epith Cells Negative /HPF (NEGATIVE) 11/11/20 14:05 Ur Renal Epithelial Cell Rare /HPF (NEGATIVE) 11/11/20 14:05 Urine Bacteria 1+ /HPF (NEGATIVE) 11/11/20 14:05 Urine Yeast Many /HPF (NEGATIVE) 11/11/20 14:05 Ur Culture Indicated? Yes/culture set up 11/11/20 14:05 Stool Description 20g black soft 11/27/20 01:27 Stl Occult Blood (IFOB) Positive (NEGATIVE) A 11/27/20 01:27 Stool for White Cells Positive (NEGATIVE) A 11/24/20 11:30 Stl C. diff Tox B Gene Negative (NEGATIVE) 11/24/20 11:30 Stl C. diff [id number] Presumptive negative (NEGATIVE) 11/24/20 11:30 Vancomycin Trough 27.2 ug/mL (15-20) H* 11/25/20 21:10 Random Vancomycin 6.8 ug/mL 11/27/20 04:47 Cryptosporid parvum Ag Negative (NEGATIVE) 11/24/20 11:30 Giardia lamblia Ag Negative (NEGATIVE) 11/24/20 11:30 Resp Viral Panel (PCR) See scanned report 11/12/20 14:54 Blood Type A POSITIVE 11/26/20 10:00 Antibody Screen Negative 11/26/20 10:00 Crossmatch See Detail 11/26/20 10:00 - Plan (1) Pneumonia due to COVID-19 virus Status: Acute Plan: MECHANICAL VENT, IV FLUIDS, POTASSIUM AND MAGNESIUM REPLACEMENT, IV AN TIBIOTICS, IV STEROIDS, IV DIFLUCAN, NEBULIZER TREATMENTS, RESPIRATORY THERAPY, VERSED FOR SEDATION, ENTERAL NUTRITION, GLUCOSE MONITORING WITH SLIDING SCALE COVERAGE. (2) ARDS (adult respiratory distress syndrome) Status: Acute Plan: On PC rate 28, PIP 38.6, Peep 14, 100% --> Vt 380 - 400 (goal), sats low 90s, 7.43/67/56. Continue current ventilator settings and wean O2 to keep sats >90%. Resend sputum sample. Continue vanc and ceftazidime (3) Pneumothorax Status: Acute Qualifiers: Pneumothorax type: unspecified pneumothorax Qualified Code(s): J93.9 - Pneumothorax, unspecified Plan: CHEST TUBE (4) Hypoxia Status: Acute Plan: Wean down FiO2 as tolerated by patient. (5) Thrombocytopenia Status: Acute Plan: Monitor platelets. (6) Anemia Status: Acute Qualifiers: Anemia type: iron deficiency Iron deficiency anemia type: chronic blood loss Qualified Code(s): D50.0 - Iron deficiency anemia secondary to blood loss (chronic) Plan: Attributed to GI blood loss. s/p 2 U prbc transfusion. cont PPI. tranfuse Hb <7
[2020-11-27 17:50] VITALS: BP 160/86
[2020-12-01] MEDS ORDERED: PHARMACY COMMENT IV ONE (08:00)
== END 2020-11-27 17:15 | disposition short-term general hospital (02) | DRG 4 ==
LOC: ER 19:41 → OBS 23:54 → MED/SURG 10-08 18:10 → ICU 10-13 17:30
PROVIDERS: ADMIT Internal Medicine; ATTEND Internal Medicine
DX: D50.9 Iron deficiency anemia, unspecified; F43.0 Acute stress reaction; J80 Acute respiratory distress syndrome; E87.6 Hypokalemia; J93.83 Other pneumothorax; G44.89 Other headache syndrome; E11.65 Type 2 diabetes mellitus with hyperglycemia; J12.81 Pneumonia due to SARS-associated coronavirus; G72.81 Critical illness myopathy; K12.1 Other forms of stomatitis; I87.2 Venous insufficiency (chronic) (peripheral); R78.81 Bacteremia; U07.1 COVID-19; E86.0 Dehydration